=== PATIENT | female | born 1965 | race Caucasian/White ===

== ENCOUNTER 2022-02-10 00:05 | Inpatient (IN) | payer BC, SELFPAY ==
[2022-02-11] VITALS (20 sets, daily range): BP systolic 103–145; BP diastolic 55–93; PULSE 56–80; RESP 15–18; TEMP 36.2–37.1; O2SAT 96–100
--- NOTE | 2022-02-11 05:53 | PC.NURSE ---
[id number] Pt resting well during shift, pivot transfers to BSC with 1 assist, NWB to LLE. NPO since 23502/10/22. pain primarily to L hand, occasionally to lower back and L hip, prn pain medications administered as pt needs. surgery scheduled from [address] Hernandez.
[2022-02-11] MEDS: LEVOTHYROXINE 50 MCG TABLET PO (06:01)
[2022-02-11] MEDS: CITALOPRAM HYDROBROMIDE 20 MG TABLET 40 MG PO (08:34)
[2022-02-11] MEDS: POTASSIUM CHLORIDE 10 MEQ CAPSULE ER 20 MEQ PO (08:34)
[2022-02-11] MEDS: buPROPion XL 150 MG TABLET 300 MG PO (08:34)
[2022-02-11] MEDS: 0.9 % SODIUM CHLORIDE 1000 ml 1,000 ML 100 ML IV (09:52)
[2022-02-11] MEDS: CEFAZOLIN 2 GM INJ IVP (11:02)
[2022-02-11] MEDS: TRANEXAMIC ACID 100 MG/ML INJ 1000 MG IV (11:07)
--- NOTE | 2022-02-11 11:10 | XR_ITS ---
Final Report Patient: LB BRODY Facility:?[facility] Patient ID:?[id number] Site Patient ID:?[id number]. Site :?[id number] Study:?XRay Hip LT INTRA OP MARLON-02/11/2022 1:08:27 PM Ordering Physician:?Dina Anderson Final Report: INDICATION: Intraoperative total hip arthroplasty. TECHNIQUE: Intraoperative C-arm fluoroscopy. IMPRESSION: Intraoperative C-arm fluoroscopy was provided. Fluoroscopy time 33.3 seconds. 1 image was captured. Dictated by James Grey MD @ 02/11/2022 1:21:10 PM (Electronic Signature)
--- NOTE | 2022-02-11 11:21 | W.PM.NB ---
Nerve Block Nerve Block Time Seen by Provider: 10:30 Date Seen: 02/11/22 Type of block requested by surgeon for post-operative analgesia: KAREEM/LFCN Side: left Time out performed: Yes Verification of patient name: Yes Verification of date of : Yes Site marking: site marked Name of person performing procedure: hedy Procedure Ultrasound guided. Images saved: Yes Medications given in 5ml increments after negative aspiration: Ropivicaine %: 0.5 mL: 30 Needle gauge: 20 Decadron (mg): 10 Precedex (mg): 0.02 Patient tolerated procedure well: Yes
[2022-02-11] MEDS: LACTATED RINGERS 1000 ML 1,000 ML 200 ML IV (11:30)
--- NOTE | 2022-02-11 12:42 | XR_ITS ---
Final Report Patient: LB BRODY Facility:?[facility] Patient ID:?[id number] Site Patient ID:?[id number]. Site :?[id number] Study:?XRay Hip Left POST OP AP & LAT-02/11/2022 1:35:35 PM Ordering Physician:Jonn Anderson Final Report: Indication: Postop Technique: Two views. Comparison: None. Findings/Impression: Status post left total hip arthroplasty. No fracture or malalignment. Subcutaneous gas. Dictated by James Grey MD @ 02/11/2022 5:57:12 PM (Electronic Signature)
--- NOTE | 2022-02-11 12:42 | PM.ORPRC ---
Procedure Note Procedure: PREOPERATIVE DIAGNOSIS: 1. Left Femoral Head fracture, acute, closed, intra-articular 2. Left posterior acetabular labral avulsion fracture POSTOPERATIVE DIAGNOSIS: 1. Left Femoral Head fracture, acute, closed, intra-articular 2. Left posterior acetabular labral avulsion fracture PROCEDURE: 1. Left total hip arthroplasty-anterior approach for femoral fracture 2. 89612 - intraoperative fluoroscopy up to 1 hour. SURGEON: Justin Arroyo MD. LIBRARY AIDE: Eldon Lopez PA-C; Beny DELANEY - Of note, a skilled construction management assistant was critical for this case to aid in patient positioning, tissue retraction, limb manipulation/positioning, dislocation/relocation, patient safety, and closure. ANESTHESIA: Spinal anesthetic EBL: 300 mL IMPLANTS: DePuy J&J uncemented total hip [place] cup size 48, hole eliminator, +0 neutral liner Actis stem, standard offset, size 6 +1 mm ceramic 32mm head. COMPLICATIONS: None evident INDICATIONS: The patient is a pleasant 56-year-old female who has experienced severe left hip pain and difficulty bearing weight after a fall. She fell downhill and dislocated her left hip. This is a red devil hip. She had a reducing [place] emergency department. following the reduction, a CT scan was obtained of the left hip which revealed a left intra-articular femoral head fracture that was displaced as well as a posterior wall left acetabular avulsion fracture. Given the deformity, the dysfunction, and the pain, as well as the failure of nonoperative management, recommendation was made for surgery. FINDINGS: Intra-articular femoral head fracture with significant heme arthrosis. The posterior wall acetabular avulsion fracture was also noted. DESCRIPTION OF PROCEDURE: Following a thorough discussion of risks, benefits, and alternatives consent was obtained and the left hip was marked. The patient was brought to the operating room and placed supine on the operating table. Induction of anesthesia was undertaken. 2 g IV Ancef and 1 g tranexamic acid was administered within 1 hr of incision preoperatively. Proper time-out was performed identifying proper patient, site, procedure. The operative extremity was prepped and draped in the appropriate sterile fashion using ChloraPrep after the patient was positioned on the [place] table with head in neutral alignment and all bony prominences well padded. C-arm fluoroscopic imaging was utilized to confirm proper pelvis rotation and position, and to get true AP films of both the contralateral left, and the affected left hip. This is for comparison. A longitudinal incision was made starting approximately 1 cm distal to the ASIS, and 3-4 cm lateral. The incision was extended distally aiming toward the lateral border the patella. Sharp incision through skin and bovie cautery through the subcutaneous tissue allowed identification of the TFL fascia. This was sharply divided, and the fascia bluntly released from the muscle fibers as we dissected medial. Upon coming to the medial border, we were able to retract the TFL laterally, and penetrated the deeper fascia and identify the crossing circumflex vessels. These were ligated/cauterized. The rectus was elevated from the capsule, and retractors placed laterally and medially along the femoral neck to help with visualization of the capsule. We then performed an inverted T capsulotomy. The capsule was tagged for later repair. Retractors were placed inside the capsule. The femoral neck was visualized after releasing medially down to the lesser trochanter, along the saddle laterally, and up onto the acetabulum. The femoral neck cut was made in line with our preoperative templating. The head was removed in a single piece, and sized. We turned our attention to acetabular preparation. Initially, the labrum was resected from around the perimeter, the pulvinar was excised, allowing us to visualize the false wall. We started the reaming with a 43 mm reamer. This was medialized down to the true wall. We then enlarged our reamers sequentially up to one size less than the selected cup size. We trialed at the same size and found it to have an excellent fit. The selected cup was then opened, inserted, and impacted in line with the goal of 40-45? of abduction, and 20-25? of anteversion. This was confirmed on C-arm fluoroscopic imaging to be in the appropriate/goal position. Once the cup was placed we placed a hole eliminator and a liner consistent with preop planning. Attention was turned to the femoral preparation. The limb was extended, externally rotated, and adducted. The posteromedial capsule was released, as retractors were placed allowing excellent access to the proximal femur. Initially a box annealer was followed by canal finder followed by various broaches. We broached sequentially up to size noted above, found it to have excellent rotational control, and trialing various heads and necks, revealed that appropriate neck offset, and the above noted head size provided the greatest stability, and adventism of length, and offset. C-arm fluoroscopic imaging confirmed position of the stem, as well as leg lengths, which were compared with the pre procedure all fluoroscopic images. Trial implants were removed, the real femoral stem inserted, as was the ceramic head. After reducing, the leg was placed through range of motion and stability was confirmed anterior, posterior, and lateral. A 3 min Betadine soak was then performed, and thorough irrigation with normal saline followed. Closure of the capsule was performed with #1 PDS. Bleeding was confirmed to be controlled at this stage, and the TFL fascia was closed with #0 strata fix. Subcutaneous, and subcuticular closure was performed with 2-0 Vicryl and 4-0 Monocryl, respectively. Dressings were applied, and the patient was awoken from anesthesia and transferred the PACU in stable condition. A skilled construction management assistant was critical for this case to aid in patient positioning, tissue retraction, proximal femur exposure, limb manipulation/positioning, dislocation/relocation, patient safety, and closure. PLAN: 1. Weight bear as tolerated operative extremity. 2. 23 hr perioperative antibiotics. 3. Ice. 4. PT/OT consults for ambulation assistance/mobility education. 5. Social work consult for discharge planning. 6. DVT prophylaxis with at SCDs, Sher Samire, and Xarelto x5 days followed by aspirin for a total of 1 month..
--- NOTE | 2022-02-11 13:37 | W.ANESCHARGE ---
Anesthesia Charges Start Date/Time Anesthesia Start Date: 02/11/22 Anesthesia Start Time: 10:38 Stop Date/Time Anesthesia Stop Date: 02/11/22 Anesthesia Stop Time: 13:23 Summary Emergency: No
--- NOTE | 2022-02-11 14:06 | W.SUR.HO ---
Primary Language: Preferred Language: Orientation Status: [] Alert & Oriented [] Slight Confusion [] Known Dx Dementia NPO Since: MAY: IV Size: IV Site Location: Duramorph Given (If Yes, Indicate Time): Equipment: [] NG [] Perez [] ARIEL [] CBI [] Compression Device Family: [] In Waiting Room [] Call @ Active Medications Generic Name Dose Route Start Last Admin Trade Name Freq PRN Reason Stop Dose Admin Acetaminophen 1,000 mg 02/11/22 17:00 Acetaminophen 500 Mg Tablet PO Q6H RALPH Bisacodyl 10 mg 02/11/22 10:56 Bisacodyl 10 Mg Supp.Rect ND DAILY PRN Constipation Bupropion HCl 300 mg 02/11/22 09:00 02/11/22 08:34 Bupropion Xl 150 Mg Tablet PO 300 mg DAILY RALPH Administration Celecoxib 200 mg 02/11/22 21:00 Celecoxib 200 Mg Capsule PO BID RALPH Citalopram Hydrobromide 40 mg 02/11/22 09:00 02/11/22 08:34 Citalopram Hydrobromide 20 Mg Tablet PO 40 mg DAILY RALPH Administration Diphenhydramine HCl 25 - 50 mg 02/11/22 10:56 Diphenhydramine 50 Mg/Ml Inj IVP Q3H PRN Itching Hydromorphone HCl 0.2 - 0.5 mg 02/11/22 10:56 Hydromorphone 0.5 Mg/0.5 Ml Inj IVP Q1H PRN Pain Hydroxyzine Pamoate 25 mg 02/11/22 05:00 Hydroxyzine Pamoate 25 Mg Capsule PO Q4H PRN Sodium Chloride 1,000 mls @ 100 mls/hr 02/11/22 10:00 02/11/22 12:51 0.9 % Sodium Chloride 1000 Ml IV Infused .Q10H RALPH Infusion Lactated Ringer's 1,000 mls @ 75 mls/hr 02/11/22 11:00 Lactated Ringers 1000 Ml IV .[id number] RALPH Cefazolin Sodium 2 gm/ Sodium 100 mls @ 200 mls/hr 02/11/22 18:00 Chloride IVPB 02/12/22 10:29 Q8H RALPH Lactated Ringer's 1,000 mls @ 35 mls/hr 02/11/22 11:30 02/11/22 11:30 Lactated Ringers 1000 Ml IV 200 mls/hr .Q24H RALPH Administration Levothyroxine Sodium 50 mcg 02/11/22 06:00 02/11/22 06:01 Levothyroxine 50 Mcg Tablet PO 50 mcg 0600 RALPH Administration Lidocaine/Aluminum/Magnesium/Simeth 15 - 30 ml 02/11/22 10:56 Mag Hydrox/Aluminum Hyd/Simeth 30 Ml Oral.Susp PO Q2H PRN Indigestion Lorazepam 0.5 - 2 mg 02/11/22 10:56 Lorazepam 0.5 Mg Tablet PO HS PRN Sleep Morphine Sulfate 2 mg 02/11/22 05:00 Morphine 2 Mg/Ml Inj IVP Q4H PRN Ondansetron HCl 4 mg 02/11/22 05:00 Ondansetron 2 Mg/Ml Inj IVP Q4H PRN Ondansetron HCl 4 mg 02/11/22 10:56 Ondansetron 2 Mg/Ml Inj IVP Q4H PRN Nausea And Vomiting Oxycodone HCl 5 mg 02/11/22 05:00 Oxycodone 5 Mg Tablet PO Q4H PRN Oxycodone HCl 2.5 - 10 mg 02/11/22 10:56 Oxycodone 5 Mg Tablet PO Q2H PRN Pain Potassium Chloride 20 meq 02/11/22 08:00 02/11/22 08:34 Potassium Chloride 10 Meq Capsule Er PO 20 meq DAILYWM RALPH Administration Rivaroxaban 10 mg 02/12/22 09:00 Rivaroxaban 10 Mg Tablet PO DAILY RALPH Sennosides 2 tab 02/11/22 21:00 Sennosides 1 Tab Tablet PO BID RALPH Sodium Chloride 500 ml 02/11/22 10:56 0.9 % Sodium Chloride 500 Ml IV Q4H PRN OLIGURIA Sodium Chloride 10 ml 02/11/22 11:02 Sodium Chloride 0.9 % (Flush) 10 Ml Syringe IVF .FLUSH PRN Diet 02/11/22 06:06 NPO Diet [DIET] 02/12/22 00:01 NPO Diet [DIET] Consults 02/11/22 10:56 Consult to Occupational Therapy [CONS] Routine Consult to Physical Therapy [CONS] Routine Consult to Squaring Shear Operator [CONS] Routine Respiratory Breath Sounds [Bilateral Normal,Clear Posterior] Breath Sounds [Bilateral Normal,Clear Posterior] Pulse Oximetry 98 Pulse Oximetry 98 Pulse Oximetry 98 Pulse Oximetry 98 Pulse Oximetry 98 Pulse Oximetry 98 Pulse Oximetry 99 Oxygen Delivery Method Room Air Oxygen Delivery Method Room Air Oxygen Delivery Method Room Air Oxygen Delivery Method Room Air Oxygen Delivery Method Room Air Oxygen Delivery Method Room Air Oxygen Delivery Method Room Air Heart Sounds Heart Sounds S1 & S2 Renal Bladder Pattern Normal for Patient Urinary Incontinence Type Normal for Patient Operation Date: 02/11/22 11:30 Actual Procedures p Total Hip Anterior Approach(Left) - Justin Arroyo MD
--- NOTE | 2022-02-11 14:25 | W.ANESCHARGE ---
Anesthesia Charges Start Date/Time Anesthesia Start Date: 02/11/22 Anesthesia Start Time: 10:38 Stop Date/Time Anesthesia Stop Date: 02/11/22 Anesthesia Stop Time: 13:23 Summary Emergency: No
[2022-02-11] MEDS: HYDROmorphone 0.5 mg/0.5 ml inj IVP ×2 (14:28→16:28)
[2022-02-11] MEDS: OXYCODONE (CR) 10 MG TAB.ER.12H PO (14:53)
[2022-02-11] MEDS: ACETAMINOPHEN 500 MG TABLET 1000 MG PO ×2 (15:16→20:46)
--- NOTE | 2022-02-11 15:31 | PM.IMPN1 ---
Progress Note: A&P Assessment and plan (1) Fracture of head of left femur: Problem details: Also dislocation of the left hip and posterior wall acetabular fracture Status: Acute Assessment and Plan: Planning left total hip arthroplasty today. (2) Fall: Status: Acute Assessment and Plan: PT and OT evaluation after total hip arthroplasty. 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 She had a DVT in my right hand 25 years ago after an IV for a surgery. She has had several surgeries in life with no bleeding issues. Her mother has the same factor 2 abnormality and has never had bleeding issues, but has had multiple PEs and DVTs. She is very vague and unclear about the details. I have [facility], but those go back only to 2017 and a note from 2018 mentions these similar vague details. 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 PT/PTT were checked prior to surgery 02/10/2022 and were both within normal limits. Status: Chronic Assessment and Plan: I recommend treating with prophylactic doses of Xarelto for 6 weeks postoperatively. (5) Hypothyroidism: Status: Chronic Assessment and Plan: Continue levothyroxine Subjective Time Seen by Provider: 07:45 Date Seen: 02/11/22 Interval history: Kelly is looking forward to getting surgery today so that is not her hip will not hurt as much and that she can start to move around. She denies chest pain or shortness of breath. Exam Const: Vital Signs, click to edit/add: Vital Signs - 24 hr 02/11/22 03:00 02/11/22 07:00 02/11/22 13:25 Temperature 98.7 F 97.7 F 98.2 F Pulse Rate 73 Pulse Rate [Right Pulse Oximeter] 80 75 Respiratory Rate 18 16 15 Blood Pressure 124/90 H Blood Pressure [Le ft Arm] 123/59 L 130/75 Pulse Oximetry 99 98 02/11/22 13:30 02/11/22 13:35 02/11/22 13:50 Temperature Pulse Rate 73 75 75 Pulse Rate [Right Pulse Oximeter] Respiratory Rate 15 15 15 Blood Pressure 119/80 136/80 131/68 Blood Pressure [Le ft Arm] Pulse Oximetry 98 98 98 02/11/22 13:55 02/11/22 14:01 02/11/22 14:10 Temperature 98.2 F 97.2 F L Pulse Rate 68 62 56 L Pulse Rate [Right Pulse Oximeter] Respiratory Rate 16 16 16 Blood Pressure 131/68 118/78 Blood Pressure [Le ft Arm] 128/71 Pulse Oximetry 98 98 Documenting provider has reviewed patient's vital signs: yes Common normals: no apparent distress, oriented x3 and alert General appearance: cooperative and comfortable Orientation/consciousness: Yes awake HENMT: Common normals: moist oral mucous membranes Face and sinus: facial abrasion (Left cheek) Mouth: lip abnormal (ecchymosis unchanged) left upper Resp: Common normals: normal respiratory effort and clear to auscultation bilaterally Auscultation: clear to auscultation bilaterally Cardio: Common normals: regular rate, regular rhythm, no gallops, no murmurs and no rub Rate: regular rate Rhythm: regular rhythm GI: Common normals: Normal to inspection, nondistended, normoactive bowel sounds present, soft to palpation and non-tender Palpation: soft Extremity: Common normals: no pedal edema Left upper extremity: hand and digits (Ecchymosis evolving, larger area, less dense) Other: Both lower extremities are in immobilizer. Neuro: Common normals: oriented x3 Sensorium/orientation: awake and alert Skin: Common normals: no jaundice General skin exam: no pallor
[2022-02-11] MEDS: hydrOXYzine pamoate 25 MG CAPSULE PO ×2 (15:36→20:56)
[2022-02-11] MEDS: SODIUM CHLORIDE 0.9 % (FLUSH) 10 ML SYRINGE IVF (16:30)
[2022-02-11] MEDS: CEFAZOLIN 2 GM in 0.9 % SODIUM CHLORIDE Mini-bag 100 ML IVPB (17:54)
[2022-02-11] MEDS: LACTATED RINGERS 1000 ML 1,000 ML 75 ML IV (18:02)
[2022-02-11] MEDS: OXYCODONE 5 MG TABLET PO ×3 (18:23→23:10)
--- NOTE | 2022-02-11 18:58 | PC.NURSE ---
Pt. arrived on floor @1410. Pt. was confused and crying out in pain. Rated pain 10/10 unable to be re-directed, attempted to reposition patient on side, pt. was complaining of pain and continued to bend affected leg and removed ice pack, sat up at 90 degrees. continued to educate pt. and redirect. vitally stable, see emar for pain regimen. After a few hours of rest pt. up to commode at 1830 and voided 800CCs. Tolerated sitting on chair and eating.
[2022-02-11] MEDS: SENNOSIDES 1 TAB TABLET 2 TAB PO (20:45)
[2022-02-11] MEDS: CELECOXIB 200 MG CAPSULE PO (20:56)
--- NOTE | 2022-02-11 22:40 | PC.NURSE ---
Shift Note [id number]: Pt cooperative but impulsive and despite discussing fall risks pt did self transfer from chair to bed successfully. Bed and chair alarms in place and pt reminded of proper call light use. Pt seems groggy with delayed responses to questions and mild difficulty word finding. Oriented x3. Surgical dressing to left hip C,D,&I with active ice in place. Pt is moving well with assist x1-2 with walker and GB. Denies dizziness/lightheadedness with position change. Tolerating regular diet and voiding without difficulty. Rates pain 6-8/10, PRN Oxy and Vistaril given with scheduled analgesics. VS WNL and LS COA.
[2022-02-12] VITALS (10 sets, daily range): BP systolic 96–145; BP diastolic 46–83; PULSE 47–90; RESP 16–20; TEMP 35.9–36.7; O2SAT 96–100
[2022-02-12] MEDS: CEFAZOLIN 2 GM in 0.9 % SODIUM CHLORIDE Mini-bag 100 ML IVPB ×2 (02:14→10:20)
[2022-02-12] MEDS: OXYCODONE 5 MG TABLET PO ×3 (02:16→23:01)
[2022-02-12] MEDS: ACETAMINOPHEN 500 MG TABLET 1000 MG PO ×4 (04:43→22:59)
--- NOTE | 2022-02-12 05:25 | PC.NURSE ---
Addendum entered by Hoa Be RN 02/12/22 05:33: Pt repostioned and pain meds given. Once med started to work pt slept better. Up with one assist to BR. Voing without problems. Has one more abx due and then can be saline locked. Left hip dressing is CDI. Original Note: Started out at 2100 she was in terrible pain. She was restless and ripping bedding apart
[2022-02-12] MEDS: LACTATED RINGERS 1000 ML 1,000 ML 75 ML IV (07:54)
[2022-02-12] MEDS: buPROPion XL 150 MG TABLET 300 MG PO (10:20)
[2022-02-12] MEDS: SENNOSIDES 1 TAB TABLET 2 TAB PO ×2 (10:20→23:00)
[2022-02-12] MEDS: CELECOXIB 200 MG CAPSULE PO ×2 (10:20→23:00)
[2022-02-12] MEDS: POTASSIUM CHLORIDE 10 MEQ CAPSULE ER 20 MEQ PO (10:20)
[2022-02-12] MEDS: RIVAROXABAN 10 MG TABLET PO (10:20)
[2022-02-12] MEDS: CITALOPRAM HYDROBROMIDE 20 MG TABLET 40 MG PO (10:20)
--- NOTE | 2022-02-12 14:21 | PC.NURSE ---
Pt. up in chair and to BSC with walker, transfer belt and assist of one. Left hip dressing dry and intact. CMS intact. Pain controlled with Oxycodone and scheduled Celebrex and Tylenol.
--- NOTE | 2022-02-12 17:00 | PM.ORPN ---
Subjective Subjective Principal diagnosis: Status postop day 1 left total hip arthroplasty - anterior approach Interval history: reports doing okay. She feels somewhat groggy. Her pain is controlled okay. She mainly complains of back pain which is chronic, is not treated historically, and no assessment historically. She reports being nervous /scared about her pain. Pain managed with p.r.n. and scheduled medications including oxycodone, acetaminophen, ice, elevation. DVT prophylaxis includes rivaroxaban. Are read in a hospitalist note that she has a factor 5 Leiden deficiency disorder, thus she will likely continue rivaroxaban for 1 month postop. Denying chest pain, shortness of breath, lightheadedness/ dizziness, nausea / vomiting. Reports having 1 BM. Ortho Exam Const Vital Signs, click to edit/add: Vital Signs - 24 hr 02/11/22 19:00 02/11/22 20:00 02/11/22 20:46 Temperature 97.3 F L 98 F 97.3 F L Pulse Rate 73 Pulse Rate [Left Pulse Oximeter] Pulse Rate [Right Pulse Oximeter] 73 76 Respiratory Rate 16 16 Blood Pressure 121/71 Blood Pressure [Left Arm] 121/71 103/61 Pulse Oximetry 98 96 02/11/22 23:10 02/12/22 00:05 02/12/22 00:37 Temperature 97.3 F L 96.7 F L 97.5 F L Pulse Rate Pulse Rate [Left Pulse Oximeter] Pulse Rate [Right Pulse Oximeter] 47 L 83 Respiratory Rate 16 18 Blood Pressure Blood Pressure [Left Arm] 96/46 L 134/72 Pulse Oximetry 96 96 02/12/22 01:05 02/12/22 07:44 02/12/22 07:50 Temperature 97.5 F L 97.9 F Pulse Rate Pulse Rate [Left Pulse Oximeter] 74 Pulse Rate [Right Pulse Oximeter] 58 L 58 L Respiratory Rate 18 18 Blood Pressure Blood Pressure [Left Arm] 100/61 130/73 Pulse Oximetry 98 02/12/22 11:27 02/12/22 15:51 Temperature 97.9 F 97.7 F Pulse Rate Pulse Rate [Left Pulse Oximeter] 79 Pulse Rate [Right Pulse Oximeter] Respiratory Rate 18 Blood Pressure Blood Pressure [Left Arm] 121/79 Pulse Oximetry 100 Documenting provider has reviewed patient's vital signs: yes Common normals: no apparent distress and oriented x3 General appearance: cooperative, anxious, lethargic ( Likely due to oral narcotics) and appears older than stated age Nutritional appearance: overweight Orientation/consciousness: Yes awake, Yes oriented to person, Yes oriented to place, Yes oriented to time and Yes lethargic ( Likely due to oral narcotics) Cardio Other: 2+ DP/PT pulses bilaterally Extremity Other: left lower extremity mildly swollen; soft tissues are supple; no erythema or ecchymosis. Warmth appropriate. Surgical dressings clean, dry, and intact; pannus covers 1/2 of the wound. No erythematous streaking peripheral to the bandage. Bilateral calves soft, nontender without swelling, edema, tenderness, erythema, discoloration, warmth, or palpable cords Neuro Common normals: oriented x3 Sensorium/orientation: awake, oriented to person, oriented to place, oriented to time and lethargic ( Likely due to oral narcotics) Assessment and Plan Assessment and plan (1) Fracture of head of left femur: Problem details: status postop day 1, left total hip arthroplasty - anterior approach for left femoral head fracture Status: Acute Assessment and Plan: complete 23 hours perioperative antibiotics PT/OT consult for education and assistance social work consult for discharge planning prescribed analgesics as needed DVT prophylaxis includes rivaroxaban, bilateral knee-high Sher stockings and SCDs anticipation is for discharge tomorrow 02/13/2022 with as long as patient is medically stable, the pain is controlled, and they are safe with mobilization. patient was not able to fully participate in therapy today due to being unsteady and groggy. We will try to reduce her overall narcotic use for pain. 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 She had a DVT in my right hand 25 years ago after an IV for a surgery. She has had several surgeries in life with no bleeding issues. Her mother has the same factor 2 abnormality and has never had bleeding issues, but has had multiple PEs and DVTs. She is very vague and unclear about the details. I have checked [facility], but those go back only to 2017 and a note from 2018 mentions these similar vague details. 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 PT/PTT were checked prior to surgery 02/10/2022 and were both within normal limits. Status: Chronic (5) Hypothyroidism: Status: Chronic
--- NOTE | 2022-02-12 18:25 | P.IMPN_ITS ---
Progress Note: A&P Assessment and plan (1) Fracture of head of left femur: Problem details: 02/11/22 left total hip arthroplasty - anterior approach for left femoral head fracture Status: Acute Assessment and Plan: Patient continues to have pain control issues. In conference with the ortho team and PT team we have decided to keep her 1 more night and continue rehab as an inpatient. 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 She had a DVT in my right hand 25 years ago after an IV for a surgery. She has had several surgeries in life with no bleeding issues. Her mother has the same factor 2 abnormality and has never had bleeding issues, but has had multiple PEs and DVTs. She is very vague and unclear about the details. I have checked her records from [facility], but those go back only to 2017 and a note from 2018 mentions these similar vague details. 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 PT/PTT were checked prior to surgery 02/10/2022 and were both within normal limits. Status: Chronic Assessment and Plan: Stable Time Spent With Patient Total time spent: 25 Subjective Interval history: Daily Progress Note - Hospital Medicine Day #: 4 Postop day 1 left total hip arthroplasty - anterior approach CC: Fall with left hip fracture OVERNIGHT UPDATES FROM STAFF & MED, LAB, IMAGING UPDATES Patient continues to have significant pain issues. Her ambulation is poor. She has had intermittent chest pain with negative workup. Vitals reviewed. She is on room air. She is afebrile. No new labs today. Review of [employer] labs from prior to our goal live to expands reveals no significant concerns. She has an normal electrolyte panel preoperatively and normal renal function. Review of Systems: See subjective Cardiac: No new chest pain/pressure/palpitations. Respiratory: no new dyspnea. GI: No abdominal bloating Musculoskeletal, significant left hip pain Objective: She looks tired, wore out. Vitals: see above Lungs: Clear. Cardiac: S1S2. Left hip reveals ecchymoses, surgical dressing that is dry and intact. Neurovascularly intact left lower extremity Disposition/Potential discharge - Likely to return to previous living situation. Total time is 25 minutes with greater than 50% spent in counseling and coordination of care. Exam Const: Vital Signs, click to edit/add: Vital Signs - 24 hr 02/11/22 19:00 02/11/22 20:00 02/11/22 20:46 Temperature 97.3 F L 98 F 97.3 F L Pulse Rate 73 Pulse Rate [Left P ulse Oximeter] Pulse Rate [Right Pulse Oximeter] 73 76 Respiratory Rate 16 16 Blood Pressure 121/71 Blood Pressure [Le ft Arm] 121/71 103/61 Pulse Oximetry 98 96 02/11/22 23:10 02/12/22 00:05 02/12/22 00:37 Temperature 97.3 F L 96.7 F L 97.5 F L Pulse Rate Pulse Rate [Left P ulse Oximeter] Pulse Rate [Right Pulse Oximeter] 47 L 83 Respiratory Rate 16 18 Blood Pressure Blood Pressure [Le ft Arm] 96/46 L 134/72 Pulse Oximetry 96 96 02/12/22 01:05 02/12/22 07:44 02/12/22 07:50 Temperature 97.5 F L 97.9 F Pulse Rate Pulse Rate [Left P ulse Oximeter] 74 Pulse Rate [Right Pulse Oximeter] 58 L 58 L Respiratory Rate 18 18 Blood Pressure Blood Pressure [Le ft Arm] 100/61 130/73 Pulse Oximetry 98 02/12/22 11:27 02/12/22 15:51 02/12/22 17:22 Temperature 97.9 F 97.7 F 97.7 F Pulse Rate Pulse Rate [Left P ulse Oximeter] 79 86 Pulse Rate [Right Pulse Oximeter] Respiratory Rate 18 18 Blood Pressure Blood Pressure [Le ft Arm] 121/79 141/78 H Pulse Oximetry 100 100
[2022-02-12 18:40] LABS: Basophils Absolute Auto 0.02 K/uL (0.00-0.30); Basophils Percent Auto 0.2 % (0.0-3.0); Eosinophils Absolute Auto 0.01 K/uL (0.00-0.50); Eosinophils Percent Auto 0.1 % (0.0-7.0); Hematocrit 33.9 % (33.0-51.0); Hemoglobin* 11.9 gm/dL (12.0-16.0); Immature Granulocytes Abs Auto 0.02 K/uL (0.00-0.30); Lymphocytes Percent Auto 8.2 % (20-44); Mean Corpuscular HGB Conc 35 gm/dL (32-36); Mean Corpuscular Hemoglobin 32 pg (26-34); Mean Corpuscular Volume 91 fL (80-100); Monocytes Percent Auto 7.9 % (0.0-11.0); Neutrophils Percent Auto 83.4 % (42.0-72.0); Platelet Count* 159 K/uL (140-440); RDW Coefficient of Variation % 12.7 % (11.5-15.5); Red Blood Count 3.72 m/uL (4.00-5.20); White Blood Count* 9.76 K/uL (4.50-11.00)
[2022-02-12 18:46] LABS: Slide Review Reflex No
--- NOTE | 2022-02-12 19:02 | PC.NURSE ---
Shift Note [id number]: VS WNL and LS COA. States pain is tolerable and rates 4/10, scheduled Tylenol given and ice pack applied to left hip. Surgical dressing C,D,&I. Moves well with assist x1 with walker and GB. Poor appetite for dinner
[2022-02-12 19:03] LABS: Chloride* 110 mmol/L (96-114); Potassium* 3.7 mmol/L (3.6-5.1); Sodium* 138 mmol/L (135-149)
[2022-02-12 19:06] LABS: Blood Urea Nitrogen* 12 mg/dL (7-30); Carbon Dioxide* 21 mmol/L (20-32); Creatinine* 0.7 mg/dL (0.5-1.5); Est. Creatinine Clearance* 86.23; Estimated Glomerular Filt Rate 100.81; Glucose* 125 mg/dL (60-115)
[2022-02-12 19:07] LABS: Calcium* 8.9 mg/dL (8.4-10.6)
[2022-02-12] MEDS: ONDANSETRON 2 MG/ML inj 4 MG IVP (21:03)
[2022-02-12 21:20] LABS: HCO3 VBG 23 mmol/L (21-28); PCO2 VBG 28 mmHG (40-50); PO2 VBG 48.8 mmHG (25-47)
[2022-02-12 21:28] LABS: Basophils Absolute Auto 0.02 K/uL (0.00-0.30); Basophils Percent Auto 0.2 % (0.0-3.0); Eosinophils Absolute Auto 0.01 K/uL (0.00-0.50); Eosinophils Percent Auto 0.1 % (0.0-7.0); Hematocrit 33.6 % (33.0-51.0); Hemoglobin* 11.6 gm/dL (12.0-16.0); Immature Granulocytes Abs Auto 0.02 K/uL (0.00-0.30); Lymphocytes Percent Auto 8.8 % (20-44); Mean Corpuscular HGB Conc 35 gm/dL (32-36); Mean Corpuscular Hemoglobin 32 pg (26-34); Mean Corpuscular Volume 92 fL (80-100); Monocytes Percent Auto 7.6 % (0.0-11.0); Neutrophils Percent Auto 83.1 % (42.0-72.0); Platelet Count* 163 K/uL (140-440); RDW Coefficient of Variation % 12.7 % (11.5-15.5); Red Blood Count 3.67 m/uL (4.00-5.20); White Blood Count* 10.04 K/uL (4.50-11.00)
[2022-02-12 21:55] LABS: Slide Review Reflex No
[2022-02-12 22:08] LABS: Troponin I* < 0.01 ng/mL (0.01-0.04)
[2022-02-12 22:09] LABS: Procalcitonin* 0.06 ng/mL (<0.50)
--- NOTE | 2022-02-13 00:12 | CT_ITS ---
Final Report Patient: LB BRODY Facility:?[facility] Patient ID:?[id number] Site Patient ID:?[id number] Site :?[id number] Study:?CT Chest w/ Contrast-02/13/2022 1:25:37 AM Ordering Physician:Morgan Dickey Final Report: INDICATION: Post operative tachypnea, chest injury from fall TECHNIQUE: CT chest with i.v. contrast using pulmonary angiographic technique. Coronal and sagittal reformats were obtained. CONTRAST: 95 mL Isovue 370 COMPARISON: None FINDINGS: Cardiovascular: The pulmonary arteries are unremarkable in enhancement with no evidence of acute pulmonary embolism. The heart has an unremarkable appearance and size. No sign of aneurysm in the thoracic aorta. Mediastinum: No mass or adenopathy seen. Lung: No pulmonary contusion, laceration or pneumothorax is seen. Pleura and pericardium: No sign of pleural effusion seen. No significant pericardial effusion is present. Chest wall and axilla: No mass or adenopathy seen. Bone: Unremarkable for age. Upper abdomen: There are 2 hypodense lesions present in the dome of the liver measuring up to 8 mm which may represent tiny liver cyst. Cortical scarring is seen in the visualized right renal upper pole. IMPRESSION: 1. No CT evidence of acute pulmonary emboli seen. Dictated by Josh Gallardo MD @ 02/13/2022 1:37:41 AM Please note that all CT scans at this facility use dose modulation, iterative reconstruction, and/or weight-based dosing when appropriate to reduce radiation dose to as low as reasonably achievable. Dictated by: Josh Gallardo MD @ 02/13/2022 01:38:44 (Electronic Signature)
--- NOTE | 2022-02-13 00:14 | CT_ITS ---
Final Report Patient: LB BRODY Facility:?[facility] Patient ID:?[id number] Site Patient ID:?[id number]. Site :?[id number] Study:?CT Head w/o Contrast-02/13/2022 1:26:33 AM Ordering Physician:Morgan Dickey Final Report: INDICATION: Acute confusion after head trauma, fall TECHNIQUE: CT Head without i.v. contrast. Coronal and sagittal reformats were obtained. COMPARISON: 02/09/2022 FINDINGS: CSF space: The ventricles are normal for age. Brain: No evidence of mass, acute infarction or hemorrhage is seen. No mass- effect or midline shift is seen. The brain parenchyma is otherwise normal in appearance with preservation of the dunn-white matter junction. Calvarium: The visualized paranasal sinuses are well aerated. The mastoid air cells are clear. The visualized orbits are grossly unremarkable. The calvarium is unremarkable in appearance with no fractures identified. IMPRESSION: 1. No evidence of acute infarction, intracranial hemorrhage, or mass-effect seen. Please note that all CT scans at this facility use dose modulation, iterative reconstruction, and/or weight-based dosing when appropriate to reduce radiation dose to as low as reasonably achievable. Dictated by: Josh Gallardo MD @ 02/13/2022 01:34:38 (Electronic Signature)
[2022-02-13] MEDS: LORazepam 0.5 MG TABLET PO (02:41)
[2022-02-13 03:07] VITALS: BP 158/80; PULSE 80; RESP 22; TEMP 37; O2SAT 98
[2022-02-13 03:09] LABS: Appearance Urine Clear (Clear); Bilirubin Urine Negative (Negative); Blood Urine Negative (Negative); Color Urine Yellow (Yellow); Glucose Urine Negative (Negative); Ketones Urine 3+ (Negative); Leukocyte Esterase Urine Negative (Negative); Nitrite Urine Negative (Negative); Protein Urine Negative (Negative); Specific Gravity Urine 1.015 (1.000-1.030); Urobilinogen Urine 0.2 (0.2-1.0)
[2022-02-13] MEDS: LEVOTHYROXINE 50 MCG TABLET PO (06:34)
[2022-02-13 07:26] LABS: HCO3 VBG 27 mmol/L (21-28); PCO2 VBG 41 mmHG (40-50); PO2 VBG 26.7 mmHG (25-47); pH VBG 7.433 (7.32-7.43)
--- NOTE | 2022-02-13 07:35 | PC.NURSE ---
SHIFT NOTE 19-: Pt is delayed in responses, off and on confused. Pt also has episodes of sweating profusely, although afebrile. Oxygen saturations >90% on room air. PRN Oxycodone given x1 for hip pain, pt reported relief. Surgical incision is CDI, CMS intact. Active ice on. Pt up 1 assist with gait belt and walker, tolerating well. Pt sent down for a head CT and PE study, both were negative. Pt given PRN Ativan to help pt sleep, effective.
[2022-02-13 07:37] LABS: Hematocrit 31.7 % (33.0-51.0); Hemoglobin* 10.9 gm/dL (12.0-16.0); Mean Corpuscular HGB Conc 34 gm/dL (32-36); Mean Corpuscular Hemoglobin 32 pg (26-34); Mean Corpuscular Volume 92 fL (80-100); Platelet Count* 162 K/uL (140-440); Red Blood Count 3.43 m/uL (4.00-5.20); White Blood Count* 8.34 K/uL (4.50-11.00)
[2022-02-13 07:39] LABS: Slide Review Reflex No
[2022-02-13 08:03] LABS: Chloride* 110 mmol/L (96-114)
[2022-02-13 08:04] LABS: Potassium* 3.8 mmol/L (3.6-5.1); Sodium* 140 mmol/L (135-149)
[2022-02-13 08:06] LABS: Carbon Dioxide* 26 mmol/L (20-32); Creatinine* 0.6 mg/dL (0.5-1.5); Estimated Glomerular Filt Rate 104.63
[2022-02-13 08:07] LABS: Blood Urea Nitrogen* 12 mg/dL (7-30); Calcium* 8.6 mg/dL (8.4-10.6); Glucose* 91 mg/dL (60-115); Magnesium* 1.8 mg/dL (1.5-2.6)
[2022-02-13 08:26] LABS: Troponin I* < 0.01 ng/mL (0.01-0.04)
[2022-02-13 08:59] VITALS: BP 125/72; PULSE 99; RESP 16; TEMP 36.6; O2SAT 99
[2022-02-13] MEDS: buPROPion XL 150 MG TABLET 300 MG PO (09:49)
[2022-02-13] MEDS: OXYCODONE 5 MG TABLET PO (09:50)
[2022-02-13] MEDS: CITALOPRAM HYDROBROMIDE 20 MG TABLET 40 MG PO (09:50)
[2022-02-13] MEDS: SENNOSIDES 1 TAB TABLET 2 TAB PO (09:53)
[2022-02-13] MEDS: RIVAROXABAN 10 MG TABLET PO (09:53)
[2022-02-13] MEDS: CELECOXIB 200 MG CAPSULE PO (09:54)
[2022-02-13] MEDS: ACETAMINOPHEN 500 MG TABLET 1000 MG PO (10:04)
[2022-02-13 12:00] VITALS: BP 137/78; PULSE 75; RESP 16; TEMP 36.4; O2SAT 100
--- NOTE | 2022-02-13 13:17 | P.DS_ITS ---
DS: Providers Provider Date of admission: 02/10/22 07:58 Primary care physician: Jack Zavala MD Admitting Clinician: Bethany Mayen MD Consults: 02/11/22 10:56 Consult to Occupational Therapy [CONS] Routine Comment: Reason(s) for OT Consult:: Evaluate and Treat Any Restrictions?:: No Restrictions Consult to Physical Therapy [CONS] Routine Comment: Ambulate in the billy today Reason(s) for PT Consult:: Evaluate and Treat Any Restrictions?:: No Restrictions Comment: Nursing Activity Consult to Sanding Machine Tender Automatic [CONS] Routine Comment: Reason for Consult:: Discharge Planning Needs Attending Physician on discharge: Alison Nuno MD DS: Diagnosis Discharge Diagnosis (1) Fracture of head of left femur: Status: Acute Problem details: 02/11/22 left total hip arthroplasty - anterior approach for left femoral head fracture DS: Summary Hospital Course Hospital Course: Patient has history of left femoral head fracture; MARLON-AA indicated for stability and mobilization. AFter approropirate preoperative evaluation, patient admitted on 02/10/22. Underwent left MARLON-AA. Postoperatively, Patient was given anticoagulation for DVT prophylaxis. hospitalist cleared her medically. She progressed with physical therapy and was felt ready for discharge. Status at Discharge Functional status at discharge: uses cane/walker Overall status at discharge: patient is progressing back to baseline Time Spent with Patient Time attestation: Total time spent providing and/or coordinating discharge services: Time spent: Greater than 30 minutes Exam Const: Vital Signs, click to edit/add: Vital Signs - 24 hr 02/12/22 15:51 02/12/22 17:22 02/12/22 19:30 Temperature 97.7 F 97.7 F 97.2 F L Pulse Rate [Left P ulse Oximeter] 86 Pulse Rate [Right Pulse Oximeter] 80 Respiratory Rate 18 20 Blood Pressure [Le ft Arm] 141/78 H 145/83 H Pulse Oximetry 100 100 02/12/22 23:00 02/13/22 03:07 02/13/22 08:59 Temperature 98.0 F 98.6 F 97.8 F Pulse Rate [Left P ulse Oximeter] Pulse Rate [Right Pulse Oximeter] 90 80 99 Respiratory Rate 18 22 16 Blood Pressure [Le ft Arm] 141/78 H 158/80 H 125/72 Pulse Oximetry 99 98 99 02/13/22 12:00 Temperature 97.6 F Pulse Rate [Left P ulse Oximeter] Pulse Rate [Right Pulse Oximeter] 75 Respiratory Rate 16 Blood Pressure [Le ft Arm] 137/78 Pulse Oximetry 100 DS: Data Data Completed and Pending Labs on day of discharge: Labs from last 24 hours 02/13/22 02/13/22 02/13/22 06:41 06:41 06:41 WBC 8.34 RBC 3.43 L Hgb 10.9 L Hct 31.7 L MCV 92 MCH 32 MCHC 34 RDW Coeff of [place]az[place] Plt Count 162 Neut % (Auto) Lymph % (Auto) [place] % (Auto) Eos % (Auto) Baso % (Auto) Neut # (Auto) Lymph # (Auto) [place] # (Auto) Eos # (Auto) Baso # (Auto) Abs Immat Gran (auto) VBG pH 7.433 H VBG pCO2 41 VBG pO2 26.7 VBG HCO3 27 Sodium 140 Potassium 3.8 Chloride 110 Carbon Dioxide 26 BUN 12 Creatinine 0.6 Estimated Creat Clear 100.60 Glucose 91 Lactate 1.0 Calcium 8.6 Magnesium 1.8 Troponin I < 0.01 L Procalcitonin TSH Urine Color Urine Appearance Urine pH Ur Specific [place] Urine Protein Urine Glucose (UA) Urine Ketones Urine Blood Urine Nitrite Urine Bilirubin Urine Urobilinogen Ur Leukocyte Esterase 02/13/22 02/12/22 02/12/22 03:00 21:05 21:05 WBC RBC Hgb Hct MCV MCH MCHC RDW Coeff of [place] Plt Count Neut % (Auto) Lymph % (Auto) [place] % (Auto) Eos % (Auto) Baso % (Auto) Neut # (Auto) Lymph # (Auto) [place] # (Auto) Eos # (Auto) Baso # (Auto) Abs Immat Gran (auto) VBG pH 7.520 H VBG pCO2 28 L VBG pO2 48.8 H VBG HCO3 23 Sodium Potassium Chloride Carbon Dioxide BUN Creatinine Estimated Creat Clear Glucose Lactate Calcium Magnesium Troponin I < 0.01 L Procalcitonin 0.06 TSH Urine Color Yellow Urine Appearance Clear Urine pH 7.0 Ur Specific [place] 1.015 Urine Protein Negative Urine Glucose (UA) Negative Urine Ketones 3+ A Urine Blood Negative Urine Nitrite Negative Urine Bilirubin Negative Urine Urobilinogen 0.2 Ur Leukocyte Esterase Negative 06/02/12/22 02/12/22 21:05 18:33 18:24 WBC 10.04 RBC 3.67 L Hgb 11.6 L Hct 33.6 MCV 92 MCH 32 MCHC 35 RDW Coeff of [place] 12.7 Plt Count 163 Neut % (Auto) 83.1 H Lymph % (Auto) 8.8 L [place] % (Auto) 7.6 Eos % (Auto) 0.1 Baso % (Auto) 0.2 Neut # (Auto) 8.30 H Lymph # (Auto) 0.90 [place] # (Auto) 0.80 Eos # (Auto) 0.01 Baso # (Auto) 0.02 Abs Immat Gran (auto) 0.02 VBG pH VBG pCO2 VBG pO2 VBG HCO3 Sodium 138 Potassium 3.7 Chloride 110 Carbon Dioxide 21 BUN 12 Creatinine 0.7 Estimated Creat Clear 86.23 Glucose 125 H Lactate Calcium 8.9 Magnesium Troponin I Procalcitonin TSH 5.150 H Urine Color Urine Appearance Urine pH Ur Specific [place] Urine Protein Urine Glucose (UA) Urine Ketones Urine Blood Urine Nitrite Urine Bilirubin Urine Urobilinogen Ur Leukocyte Esterase 02/12/22 18:24 WBC 9.76 RBC 3.72 L Hgb 11.9 L Hct 33.9 MCV 91 MCH 32 MCHC 35 RDW Coeff of [place] 12.7 Plt Count 159 Neut % (Auto) 83.4 H Lymph % (Auto) 8.2 L [place] % (Auto) 7.9 Eos % (Auto) 0.1 Baso % (Auto) 0.2 Neut # (Auto) 8.10 H Lymph # (Auto) 0.80 L [place] # (Auto) 0.80 Eos # (Auto) 0.01 Baso # (Auto) 0.02 Abs Immat Gran (auto) 0.02 VBG pH VBG pCO2 VBG pO2 VBG HCO3 Sodium Potassium Chloride Carbon Dioxide BUN Creatinine Estimated Creat Clear Glucose Lactate Calcium Magnesium Troponin I Procalcitonin TSH Urine Color Urine Appearance Urine pH Ur Specific [place] Urine Protein Urine Glucose (UA) Urine Ketones Urine Blood Urine Nitrite Urine Bilirubin Urine Urobilinogen Ur Leukocyte Esterase Discharge Plan Discharge Disposition: Home, Self-Care Date of Admission: 02/10/22 07:58 Attending Provider on Discharge: Justin Arroyo Consulting Providers: Eldon Lopez Primary Care Provider: Jack Zavala Condition: Stable Anticipated Discharge Date/Time: 02/13/22 13:03 Discharge Medications: New celecoxib 200 mg Capsule 200 mg PO BID Qty: 60 0RF oxycodone 5 mg Tablet 2.5 - 10 mg PO Q2H PRN (Reason: Pain) Qty: 30 0RF Xarelto 10 mg Tablet 10 mg PO DAILY Qty: 3 0RF aspirin 81 mg capsule 81 mg PO BID Qty: 60 2RF Rx Instructions: start on 02/17/22 for one month sennosides-docusate sodium [Senna-S] 8.6-50 mg tablet 1 - 4 tab-cap PO BID Qty: 60 0RF Rx Instructions: Hold medication if experiencing loose stools. Continued dextroamphetamine-amphetamine [Adderall XR] 15 mg capsule,extended release 24hr 15 mg PO DAILY 0RF ascorbic acid (vitamin C) 500 mg tablet 500 mg PO DAILY 0RF bisacodyl 5 mg tablet,delayed release (DR/EC) 10 mg PO HS PRN0RF bupropion HCl 300 mg tablet extended release 24 hr 300 mg PO DAILY 0RF cholecalciferol (vitamin D3) 25 mcg (1,000 unit) capsule 25 mcg PO DAILY 0RF citalopram 40 mg tablet 40 mg PO DAILY 0RF coenzyme Q10 50 mg capsule 50 mg PO DAILY 0RF furosemide 40 mg tablet 40 mg PO DAILY 0RF minocycline 100 mg capsule 100 mg PO Q12H 0RF levothyroxine 50 mcg tablet 50 mcg PO DAILY 0RF lorazepam 1 mg tablet 1 mg PO TID PRN0RF pregabalin 300 mg capsule 300 mg PO BID 0RF Classic 28 mg iron- 800 mcg tablet PO DAILY 0RF trazodone 100 mg tablet 100 mg PO HS 0RF Discontinued celecoxib 100 mg capsule 100 mg PO BID PRN0RF meloxicam 15 mg tablet 15 mg PO DAILY 0RF Discharge Orders: Discharge Order (Routine); Ordered 02/13/22 Ordered By: Madhuri Cosme Patient Education: Narcotic Safety (GEN), Surgical Site Infections (DC), Care For Your Absorbable Stitches (DC), Anterior Hip Replacement (DC), Deep Vein Thrombosis Prevention (DC) Activity Level: Activity as Tolerated, Up with assist, Use Cane and Use Walker Activity Detail: Sher socks: Wear for 1 month, remove for 1 hour 3 times a day ? No tub, hot tub, or pool until scabs no longer present ? May shower p.r.n. ? Ice the affected area as needed using cryocuff or active ice; no restrictions ? Driving: Do not drive while taking pain medications; anticipate 4-6 weeks of no driving if operative leg is the driving leg ? Dressing: do not remove the regional dressing; we will remove this at her first postop visit; only remove the original dressing if it appears saturated ? Sutures: sutures are under the skin they will dissolve over time. Surgical glue covers the wound. Do not scrub the wound, do not apply ointments/lotions. Let glue fall off naturally. ? Dental: no like to dental work for 6 months postop; if there is an urgent dental needed, contact our office for antibiotic prescription. ? Bacterial infection such as: Pneumonia, bacterial skin infections ( cellulitis), UTI, high fever, chills unrelated to the operative body part - call PCP urgently for treatment in hopes to protect your health and the metal implant(s) Discharge Diet: Regular Referrals: [facility] [Provider Group] - 02/18/22 (doesn't need to be NF specifically. s/p MARLON, left. anterior approach after traumatic fall.) Jack Zavala MD [Primary Care Provider] - Forms: Sidecar Info Instructions
--- NOTE | 2022-02-13 13:58 | PC.NURSE ---
Pt eval by Dr. Cosme [facility], showered with OT Cyn and walked, exercises and stairs with Rey PT. Please see eMar for medications provided throughout the day. Pt declined breakfast and lunch. Adequate water intake and urine output. My is going to take me out for dinner on the way home. Hx of past TBI. IV discontinued. Pt awaiting d/c paperwork and plans to go home with her spouse via w/c.
== END 2022-02-13 14:58 | disposition home or self-care (01) | DRG 912 ==
PROVIDERS: Family Medicine; Orthopaedic Surgery Sports Medicine; Physician Assistant Surgical; Admitting Provider Family Medicine; Emergency Provider Family Medicine; PCP Family Medicine; Visit Provider Family Medicine
PROC: 0SRB04A Replacement of Left Hip Joint with Ceramic on Polyethylene Synthetic Substitute, Uncemented, Open Approach (ICD-10-PCS; CPT 27130; principal; 2022-02-11 11:30)
DX: S32.492A Other specified fracture of left acetabulum, initial encounter for closed fracture (principal); S72.052A Unspecified fracture of head of left femur, initial encounter for closed fracture; S73.015A Posterior dislocation of left hip, initial encounter; D68.51 Activated protein C resistance; N18.2 Chronic kidney disease, stage 2 (mild); E03.9 Hypothyroidism, unspecified; Z86.718 Personal history of other venous thrombosis and embolism; Z86.711 Personal history of pulmonary embolism; W19.XXXA Unspecified fall, initial encounter
CPT/HCPCS: 1214; 36415; 70450; 71260; 72125; 72170; 72192; 73130; 73501; 73502; 76000; 80048; 81003; 82803; 83605; 83735; 84145; 84443; 84484; 85025; 85027; 85610; 85730; 87040; 87426; 93005; 94761; 96361; 96374; 96375; 96376; 97110; 97116; 97161; 97165; 97530; 97535; 99140; 99285; 99291; A9270; C1776; G0378; J0690; J1100; J1170; J2250; J2270; J2405; J2704; J2795; J3010; J3490; J7030; J7120; Q9967

== ENCOUNTER 2022-02-14 23:28 | Outpatient (CLI) | payer BC, SELFPAY | END 2022-02-14 23:29 | disposition home or self-care (01) | PROVIDERS: PCP Family Medicine; Visit Provider Internal Medicine | DX: S79.912A Unspecified injury of left hip, initial encounter (principal); W18.30XA Fall on same level, unspecified, initial encounter; Y92.009 Unspecified place in unspecified non-institutional (private) residence as the place of occurrence of the external cause | CPT/HCPCS: A0425; A0427 ==

== ENCOUNTER 2022-02-15 00:23 | Observation (INO) | payer BC, SELFPAY ==
[2022-02-15] VITALS (13 sets, daily range): BP systolic 102–137; BP diastolic 57–90; PULSE 72–100; RESP 16–18; TEMP 36.2–36.9; O2SAT 97–100; BMI 30.4; BMI 31.1
--- NOTE | 2022-02-15 | CRLHL7_ITS ---
For Patients: As a result of the Cures Act, medical imaging exams and procedure reports are released immediately into your electronic medical record. You may view this report before your referring provider. If you have questions, please contact your health care provider. HISTORY: Post reduction. TECHNIQUE: AP pelvis and lateral view left hip. COMPARISON: 02/15/2022. FINDINGS: Prior left total hip arthroplasty dislocation has been reduced. There is normal alignment on these radiographs. No acute fracture. Right hip joint space maintained. Degenerative changes within the lower lumbar spine. IMPRESSION: 1. Reduction of previously seen left total hip arthroplasty dislocation. 2. No acute fracture. Dictated by Bradly Bowie MD @ 02/15/2022 11:25:06 AM Dictated by: Bradly Bowie MD @ 02/15/2022 11:25:17 (Electronically Signed)
--- NOTE | 2022-02-15 00:55 | CRLHL7_ITS ---
For Patients: As a result of the Cures Act, medical imaging exams and procedure reports are released immediately into your electronic medical record. You may view this report before your referring provider. If you have questions, please contact your health care provider. INDICATION: Injury, recent total hip arthroplasty, Fall with recent hip replacement TECHNIQUE: Pelvis radiograph, Hip radiograph 3 views left COMPARISON: 02/11/2022 FINDINGS: Bone: No acute fractures or aggressive bone lesions are identified. Interval superior dislocation of the left femoral prosthesis is noted. Joint: A left bipolar arthroplasty is noted. The visualized sacroiliac joints are unremarkable in appearance. The pubic symphysis is normal in appearance. Soft tissue: Unremarkable. No radiopaque foreign bodies are seen. IMPRESSION: 1. Interval superior dislocation of the left femoral prosthesis is noted. Dictated by Josh Gallardo MD @ 02/15/2022 2:13:53 AM Dictated by: Josh Gallardo MD @ 02/15/2022 02:14:10 (Electronically Signed)
--- NOTE | 2022-02-15 01:21 | ED.NURSE ---
heads up given to house sup
--- NOTE | 2022-02-15 02:13 | ED.NURSE ---
Danielle GARCIA returned call for
--- NOTE | 2022-02-15 02:16 | ED_ITS ---
HPI - Fall General Chief Complaint: Hip Injury/Pain Stated Complaint: Left hip dislocation Time Seen by Provider: 02/15/22 00:25 History of Present Illness HPI Narrative: Patient is a 56-year-old woman with history of proximal femur fracture and acetabular fracture who underwent total hip arthroplasty after a fall home within the last week. She did reasonably well and went home but tonight fell again and now the hip is dislocated. She does not appear to be injured in any other way. She is unable to bear weight. She has otherwise been recovering well with no complications. Patient presents via EMS. Related Data Home Medications Medication Instructions Recorded Confirmed ascorbic acid (vitamin C) 500 mg 500 mg PO DAILY 02/11/22 02/11/22 tablet bisacodyl 5 mg tablet,delayed 10 mg PO HS PRN 02/11/22 02/11/22 release bupropion HCl 300 mg 24 hr tablet, 300 mg PO DAILY 02/11/22 02/11/22 extended release cholecalciferol (vitamin D3) 25 25 mcg PO DAILY 02/11/22 02/11/22 mcg (1,000 unit) capsule citalopram 40 mg tablet 40 mg PO DAILY 02/11/22 02/11/22 coenzyme Q10 50 mg capsule 50 mg PO DAILY 02/11/22 02/11/22 dextroamphetamine-amphetamine ER 15 mg PO DAILY 02/11/22 02/11/22 15 mg 24hr capsule,extend release (Adderall XR) furosemide 40 mg tablet 40 mg PO DAILY 02/11/22 02/11/22 levothyroxine 50 mcg tablet 50 mcg PO DAILY 02/11/22 02/11/22 lorazepam 1 mg tablet 1 mg PO TID PRN 02/11/22 02/11/22 minocycline 100 mg capsule 100 mg PO Q12H 02/11/22 02/11/22 pregabalin 300 mg capsule 300 mg PO BID 02/11/22 02/11/22 vits no.126-ferrous fum tab PO DAILY 02/11/22 28 mg iron-folic acid 800 mcg tablet (Classic ) trazodone 100 mg tablet 100 mg PO HS 02/11/22 02/11/22 Previous Rx's Medication Instructions Recorded aspirin 81 mg capsule 81 mg PO BID #60 cap 02/13/22 celecoxib 200 mg capsule 200 mg PO BID #60 cap 02/13/22 oxycodone 5 mg tablet 2.5 - 10 mg PO Q2H PRN #30 tab 02/13/22 rivaroxaban 10 mg tablet (Xarelto) 10 mg PO DAILY #3 tab 02/13/22 sennosides 8.6 mg-docusate sodium 1 - 4 tab-cap PO BID #60 tab 02/13/22 50 mg tablet (Senna-S) Allergies Allergy/AdvReac Type Severity Reaction Status Date / Time adhesive Allergy Severe Hives Verified 02/13/22 01:23 bee venom protein (honey bee) Allergy Severe Anaphylaxis Verified 02/13/22 01:23 Review of Systems Status of ROS: Reports: 10 or more systems reviewed and unremarkable except as noted in History and below [facility] Medical History (Updated 02/15/22 @ 02:20 by Zaid Gonzalez MD) ADHD, predominantly inattentive type Anginal equivalent CKD (chronic kidney disease), stage II Colon polyps Factor V Leiden Family history of clotting disorder Fibromyalgia Generalized anxiety disorder Hypothyroidism Neurofibromatosis Postoperative deep vein thrombosis (DVT) Recurrent major depression Syncope Traumatic brain injury Surgical History (Updated 02/11/22 @ 15:31 by Alison Nuno MD) History of arthroplasty of left knee History of total abdominal hysterectomy and bilateral salpingo-oophorectomy Hx laparoscopic cholecystectomy Hx of appendectomy Hx of LASIK S/P tendon repair S/P tendon repair Exam Narrative: Exam Narrative: EXAM GENERAL: Patient appears comfortable and well. Somewhat sedated from EMS. EYES: No scleral icterus. LYMPH: No supraclavicular or cervical lymphadenopathy. SKIN: Visible skin seen during exam normal or with benign process only. EXT: Left hip is shortened and externally rotated. Pulses are intact. No neural muscular defects. HEART: Regular rate and rhythm with no murmurs, rubs, or gallops. LUNGS: Clear to auscultation bilaterally with no crackles or wheezes. ABD: Soft, non tender, non distended. PSYCH: Good eye contact, speech is not pressured. Const: Vital Signs, click to edit/add: Vital Signs - 24 hr 02/15/22 00:27 Temperature 97.2 F L Pulse Rate [Left P ulse Oximeter] 72 Respiratory Rate 16 Blood Pressure [Ri ght Upper Arm] 126/81 Pulse Oximetry 100 Course Course Hospital Course: X-ray series upon my review shows dislocated left hip arthroplasty. I did call and discuss case with Orthopedics and will be placing the patient in the hospital for surgical consultation with Orthopedics in the morning. Vital Signs Vital signs: Initial Vital Signs Temperature 97.2 F L 02/15/22 00:27 Temperature Source Temporal Artery Scan 02/15/22 00:27 Pulse Rate 72 02/15/22 00:27 Pulse Rhythm 02/15/22 00:27 Pulse Strength 3+ Normal 02/15/22 00:27 Respiratory Rate 16 02/15/22 00:27 Blood Pressure 126/81 02/15/22 00:27 Blood Pressure Mean 96 02/15/22 00:27 Blood Pressure Position Supine 02/15/22 00:27 Pulse Oximetry 100 02/15/22 00:27 Oxygen Delivery Method 02/15/22 00:27 Vital Signs Temperature 97.2 F L 02/15/22 00:27 Pulse Rate 72 02/15/22 00:27 Respiratory Rate 16 02/15/22 00:27 Blood Pressure 126/81 02/15/22 00:27 Pulse Oximetry 100 02/15/22 00:27 Temperature 97.2 F L 02/15/22 00:27 Pulse Rate 72 02/15/22 00:27 Respiratory Rate 16 02/15/22 00:27 Blood Pressure 126/81 02/15/22 00:27 Pulse Oximetry 100 02/15/22 00:27 MDM - Fall Medical Records Medical records narrative: I have reviewed her previous hospitalization. Discharge Plan Discharge Clinical Impression: Dislocation, hip Patient Disposition: Admitted As Inpatient Condition: Stable Activity Level: No Weight Bearing Diet Detail: NPO Prescriptions: No Action dextroamphetamine-amphetamine [Adderall XR] 15 mg capsule,extended release 24hr 15 mg PO DAILY 0RF ascorbic acid (vitamin C) 500 mg tablet 500 mg PO DAILY 0RF bisacodyl 5 mg tablet,delayed release (DR/EC) 10 mg PO HS PRN0RF bupropion HCl 300 mg tablet extended release 24 hr 300 mg PO DAILY 0RF cholecalciferol (vitamin D3) 25 mcg (1,000 unit) capsule 25 mcg PO DAILY 0RF citalopram 40 mg tablet 40 mg PO DAILY 0RF coenzyme Q10 50 mg capsule 50 mg PO DAILY 0RF furosemide 40 mg tablet 40 mg PO DAILY 0RF minocycline 100 mg capsule 100 mg PO Q12H 0RF levothyroxine 50 mcg tablet 50 mcg PO DAILY 0RF lorazepam 1 mg tablet 1 mg PO TID PRN0RF pregabalin 300 mg capsule 300 mg PO BID 0RF Classic 28 mg iron- 800 mcg tablet PO DAILY 0RF trazodone 100 mg tablet 100 mg PO HS 0RF celecoxib 200 mg Capsule 200 mg PO BID Qty: 60 0RF oxycodone 5 mg Tablet 2.5 - 10 mg PO Q2H PRN (Reason: Pain) Qty: 30 0RF Xarelto 10 mg Tablet 10 mg PO DAILY Qty: 3 0RF aspirin 81 mg capsule 81 mg PO BID Qty: 60 2RF Rx Instructions: start on 02/17/22 for one month sennosides-docusate sodium [Senna-S] 8.6-50 mg tablet 1 - 4 tab-cap PO BID Qty: 60 0RF Rx Instructions: Hold medication if experiencing loose stools. Follow Up/Referrals: Jack Zavala MD [Primary Care Provider] -
--- NOTE | 2022-02-15 03:00 | ED.NURSE ---
did bed request, called [facility] about request
[2022-02-15 04:09] LABS: SARS PCR* Negative SARS-CoV-2 (Negative)
[2022-02-15] MEDS: LORazepam 2 MG/ML inj 1 MG IVP (04:15)
--- NOTE | 2022-02-15 04:58 | P.IMCN_ITS ---
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), stage II Colon polyps Factor V Leiden Family history of clotting disorder Fibromyalgia Generalized anxiety disorder Hypothyroidism Neurofibromatosis Postoperative deep vein thrombosis (DVT) Recurrent major depression Syncope Traumatic brain injury Surgical History (Updated 02/11/22 @ 15:31 by Alison Nuno MD) History of arthroplasty of left knee History of total abdominal hysterectomy and bilateral salpingo-oophorectomy Hx laparoscopic cholecystectomy Hx of appendectomy Hx of LASIK S/P tendon repair S/P tendon repair Social History Smoking Status: Never smoker Do you use any of these nicotine containing products: None Second hand tobacco smoke exposure: No How often do you have a drink containing alcohol: monthly or less How many standard drinks containing alcohol do you have on a typical day: 1 or 2 How often do you have six or more drinks on one occasion: Never AUDIT-C Alcohol total score: 1 Non-prescribed substance use: marijuana (any form) service: No Meds Home Medications and Allergies Home Medications Medication Instructions Recorded Confirmed Type ascorbic acid (vitamin C) 500 mg 500 mg PO DAILY 02/11/22 02/11/22 History tablet bisacodyl 5 mg tablet,delayed 10 mg PO HS PRN 02/11/22 02/11/22 History release bupropion HCl 300 mg 24 hr tablet, 300 mg PO DAILY 02/11/22 02/11/22 History extended release cholecalciferol (vitamin D3) 25 25 mcg PO DAILY 02/11/22 02/11/22 History mcg (1,000 unit) capsule citalopram 40 mg tablet 40 mg PO DAILY 02/11/22 02/11/22 History coenzyme Q10 50 mg capsule 50 mg PO DAILY 02/11/22 02/11/22 History dextroamphetamine-amphetamine ER 15 mg PO DAILY 02/11/22 02/11/22 History 15 mg 24hr capsule,extend release (Adderall XR) furosemide 40 mg tablet 40 mg PO DAILY 02/11/22 02/11/22 History levothyroxine 50 mcg tablet 50 mcg PO DAILY 02/11/22 02/11/22 History lorazepam 1 mg tablet 1 mg PO TID PRN 02/11/22 02/11/22 History minocycline 100 mg capsule 100 mg PO Q12H 02/11/22 02/11/22 History pregabalin 300 mg capsule 300 mg PO BID 02/11/22 02/11/22 History vits no.126-ferrous fum tab PO DAILY 02/11/22 History 28 mg iron-folic acid 800 mcg tablet (Classic ) trazodone 100 mg tablet 100 mg PO HS 02/11/22 02/11/22 History Allergies Allergy/AdvReac Type Severity Reaction Status Date / Time adhesive Allergy Severe Hives Verified 02/13/22 01:23 bee venom protein (honey bee) Allergy Severe Anaphylaxis Verified 02/13/22 01:23 Exam Const: Vital Signs, click to edit/add: Vital Signs - 24 hr 02/15/22 00:27 02/15/22 02:23 02/15/22 02:30 Temperature 97.2 F L Pulse Rate [Left P ulse Oximeter] 72 95 91 Respiratory Rate 16 16 16 Blood Pressure [Ri ght Upper Arm] 126/81 124/67 123/71 Pulse Oximetry 100 97 100 02/15/22 03:00 02/15/22 03:30 Temperature Pulse Rate [Left P ulse Oximeter] 83 87 Respiratory Rate 16 16 Blood Pressure [Ri ght Upper Arm] 129/75 129/75 Pulse Oximetry 100 98 Assessment and Plan Assessment and plan (1) Dislocation, hip: Status: Acute Plan [facility] Hospitalist CONSULTATION NOTE: Reason for consult: Hip dislocation HPI: Patient is a pleasant 56-year-old female who recently had surgical repair of her left hip around 5 days ago and today presents following dislocation of the left hip. Patient reports that she was in the kitchen and she started to slip because she had her ANTOINETTE hose on. She tried to correct initial slipped and then ended up falling and dislocating her hip. She is brought in by EMS and received pain medications. She has not had significant pain since arrival per her report. However she was diaphoretic and experienced chills in the ED. She has not had a recent headache or lightheadedness. She denies any recent chest pain or shortness of breath. She has not had abdominal pain, nausea, vomiting. She did have some diarrhea earlier in the week, but none the last day or 2. She did not have any fevers but as mentioned had some chills in the ED. She also reports seeing things in her lower abdomen move when she fell down and was concerned that her hip prosthesis was in her abdominal cavity. Patient is a non-smoker. She does drink alcohol on occasion. She also uses marijuana regularly but not on a daily basis. She does not use other recreational drugs. We did discuss CODE STATUS and patient wishes to be full code. Exam (performed via interactive video with assistance of bedside nurse): General: Alert, cooperative, no acute distress HEENT: Pupils reported ERRL, oral mucosa pink and moist without erythema Lungs: Clear to auscultation bilaterally without crackle or wheeze CV: Regular rate and rhythm without loud murmur rub or gallop Abd: Patient endorses some mild tenderness in her right lower quadrant, but otherwise is nontender to palpation. Ext: Trace edema bilateral lower extremity Skin: No rashes, bruises or lesions appreciated on gross visualization of exposed skin Neuro: Alert, oriented x 3. CN III -VII, XI, XII grossly intact, moves all extremities without any significant focal deficit appreciated by nurse Assessment and Plan: 1. Left hip dislocation Patient is a pleasant 56-year-old female admitted for dislocation of her recently repaired left hip. Orthopedics will evaluate her later this morning and has asked that she be kept n.p.o. in case she goes to the OR. PRNs have been placed for pain and nausea. Patient will need her chronic outpatient medications restarted as appropriate when they are fully verified. Enoxaparin has been placed for DVT prophylaxis. Patient is a full code. Thank you for including James Burton in the patients care. This service is available for further assistance as requested by your care team by calling [phone].
--- NOTE | 2022-02-15 06:45 | PC.NURSE ---
Admit to floor at 0440. Patient cooperative with admission. Fatigued. Perez patent. Old dressing to L. hip C/D/I. NPO.
[2022-02-15] MEDS: MORPHINE 4 MG/ML INJ IVP ×3 (08:01→20:15)
--- NOTE | 2022-02-15 09:05 | CRLHL7_ITS ---
For Patients: As a result of the Cures Act, medical imaging exams and procedure reports are released immediately into your electronic medical record. You may view this report before your referring provider. If you have questions, please contact your health care provider. HISTORY: Hip reduction attempts. TECHNIQUE: AP pelvis and cross-table lateral hip radiographs. COMPARISON: 02/15/2022. FINDINGS: On the 1st set of images, there remains a dislocation of the left total hip arthroplasty. On the subsequent images, the dislocation has been reduced. There is no acute fracture. No right hip joint space narrowing. IMPRESSION: 1. On the final images, the left total hip replacement dislocation has been reduced. 2. No acute fracture. Dictated by Bradly Bowie MD @ 02/15/2022 11:23:49 AM Dictated by: Bradly Bowie MD @ 02/15/2022 11:23:59 (Electronically Signed)
--- NOTE | 2022-02-15 10:18 | W.ANESCHARGE ---
Anesthesia Charges Start Date/Time Anesthesia Start Date: 02/15/22 Anesthesia Start Time: 09:00 Stop Date/Time Anesthesia Stop Date: 02/15/22 Anesthesia Stop Time: 10:10 Summary Emergency: Yes
--- NOTE | 2022-02-15 11:48 | PM.ORCN ---
History of Present Illness HPI Time Seen by Provider: 08:00 Date Seen: 02/15/22 Consult date: 02/15/22 Requesting physician: Zaid Gonzalez Chief complaint: Left hip dislocation Narrative: Kelly is a very pleasant 56-year-old young lady, on med surge today after arriving at the emergency room early this morning. She was ambulating in her home and states that her Sher stockings were slipping on her floor with her legs both abducting as if she was going to do the splits, she fell to her knees, landed on her left knee and dislocated her left hip. Last week she fractured her proximal femur and also sustained an acetabular fracture. She underwent total hip replacement by Dr. Arroyo on 02/09/2022. She states she was doing very well at home yesterday. She has many stairs in her home and was able to climb the stairs. Her left for short period of time and she wanted to get a drink of water at the time of her fall. She currently has left hip pain with left lower extremity external rotation and shortening. Review of Systems Status of ROS: Reports: 6 or more systems reviewed and unremarkable except as noted in History and below Narrative: Patient denies nausea, vomiting, fever, chills, chest pain, shortness of breath Integ/Breast: Reports: rash (Erythematous rash left thigh with skin tenderness in this area.), redness and skin tenderness 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), stage II Colon polyps Factor V Leiden Family history of clotting disorder Fibromyalgia Generalized anxiety disorder Hypothyroidism Neurofibromatosis Postoperative deep vein thrombosis (DVT) Recurrent major depression Syncope Traumatic brain injury Surgical History (Updated 02/15/22 @ 12:14 by Mar Choudhury PA-C) History of arthroplasty of left knee History of total abdominal hysterectomy and bilateral salpingo-oophorectomy Hx laparoscopic cholecystectomy Hx of appendectomy Hx of LASIK S/P tendon repair S/P tendon repair Social History Highest level of school completed/degree received: Associate degree: academic program Smoking Status: Never smoker Do you use any of these nicotine containing products: None Second hand tobacco smoke exposure: No How often do you have a drink containing alcohol: monthly or less How many standard drinks containing alcohol do you have on a typical day: 1 or 2 How often do you have six or more drinks on one occasion: Never AUDIT-C Alcohol total score: 1 Non-prescribed substance use: marijuana (any form) Caffeine: Yes service: No Meds Home Medications and Allergies Home Medications Medication Instructions Recorded Confirmed Type ascorbic acid (vitamin C) 500 mg 500 mg PO DAILY 02/11/22 02/11/22 History tablet bisacodyl 5 mg tablet,delayed 10 mg PO HS PRN 02/11/22 02/11/22 History release bupropion HCl 300 mg 24 hr tablet, 300 mg PO DAILY 02/11/22 02/11/22 History extended release cholecalciferol (vitamin D3) 25 25 mcg PO DAILY 02/11/22 02/11/22 History mcg (1,000 unit) capsule citalopram 40 mg tablet 40 mg PO DAILY 02/11/22 02/11/22 History coenzyme Q10 50 mg capsule 50 mg PO DAILY 02/11/22 02/11/22 History dextroamphetamine-amphetamine ER 15 mg PO DAILY 02/11/22 02/11/22 History 15 mg 24hr capsule,extend release (Adderall XR) furosemide 40 mg tablet 40 mg PO DAILY 02/11/22 02/11/22 History levothyroxine 50 mcg tablet 50 mcg PO DAILY 02/11/22 02/11/22 History lorazepam 1 mg tablet 1 mg PO TID PRN 02/11/22 02/11/22 History minocycline 100 mg capsule 100 mg PO Q12H 02/11/22 02/11/22 History pregabalin 300 mg capsule 300 mg PO BID 02/11/22 02/11/22 History vits no.126-ferrous fum tab PO DAILY 02/11/22 History 28 mg iron-folic acid 800 mcg tablet (Classic ) trazodone 100 mg tablet 100 mg PO HS 02/11/22 02/11/22 History Allergies Allergy/AdvReac Type Severity Reaction Status Date / Time adhesive Allergy Severe Hives Verified 02/13/22 01:23 bee venom protein (honey bee) Allergy Severe Anaphylaxis Verified 02/13/22 01:23 Ortho Exam Narrative Exam Narrative: The left hip is examined this morning. The left thigh has an erythematous rash that is tender to the touch and warm. Any movement of the left lower extremity is very painful. The left leg is shortened and in external rotation. She is able to dorsiflex and plantar flex the left ankle great toe. Sensation is intact left lower extremity. Pedal pulses DP and PT 2+. Const Vital Signs, click to edit/add: Vital Signs - 24 hr 02/15/22 00:27 02/15/22 02:23 02/15/22 02:30 Temperature 97.2 F L Pulse Rate [Left Pulse Oximeter] 72 95 91 Respiratory Rate 16 16 16 Blood Pressure [Right Radial Artery] Blood Pressure [Right Upper Arm] 126/81 124/67 123/71 Pulse Oximetry 100 97 100 02/15/22 03:00 02/15/22 03:30 02/15/22 04:47 Temperature 98.0 F Pulse Rate [Left Pulse Oximeter] 83 87 78 Respiratory Rate 16 16 18 Blood Pressure [Right Radial Artery] 137/90 H Blood Pressure [Right Upper Arm] 129/75 129/75 Pulse Oximetry 100 98 99 02/15/22 04:52 02/15/22 08:41 Temperature 98.0 F 98.0 F Pulse Rate [Left Pulse Oximeter] 78 81 Respiratory Rate 18 18 Blood Pressure [Right Radial Artery] 137/90 H 131/71 Blood Pressure [Right Upper Arm] Pulse Oximetry 99 98 Documenting provider has reviewed patient's vital signs: yes Common normals: no apparent distress (No acute distress, however certainly experiencing pain at rest in her bed t), average body habitus and oriented x3 General appearance: cooperative and well kempt Orientation/consciousness: Yes awake, Yes oriented to person, Yes oriented to place and Yes oriented to time HENOR Common normals: Yes hearing grossly normal bilaterally Resp Common normals: Yes normal respiratory effort, Yes no retractions and Yes no use of accessory muscles Effort & inspection: able to speak in complete sentences and symmetric chest movement Cardio Common normals: Yes no JVD Peripheral pulses: posterior tibial pulses present and dorsalis pedis pulses present Extremity Common normals: no calf tenderness Left lower extremity: hip joint ( left lower extremity externally rotated and shortened) Other: Ecchymosis located over anterior left knee. Neuro Common normals: oriented x3 Sensorium/orientation: awake, oriented to person, oriented to place and oriented to time Psych Common normals: mental status grossly normal, thought process normal, cooperative, affect normal and speech normal Appearance: grossly normal and well kempt Attitude: calm and engaged Activity/motor behavior: appropriate eye contact Speech: normal speech Mood and affect: euthymic mood Thought process: normal thought process Thought content: normal thought content Attention/concentration: attention grossly intact Memory/cognition: memory grossly intact Insight: insight good Judgement: judgment good Skin General skin exam: Yes erythema (Erythema and warmth with mild tenderness to palpation in this area.) Results Labs Labs: Laboratory Results - last 48 hr 02/15/22 03:32 SARS-CoV-2 (PCR) Negative SARS-CoV-2 Diagnostic results Hip x-ray: report reviewed and image reviewed Additional Comments: X-rays are reviewed of the left hip an AP pelvis after arrival to the emergency room early this morning. This shows interval superior dislocation of the left femoral prosthesis. No acute fractures aggressive bone lesions are identified. AP and lateral views left hip taken after several attempts at reduction, final images show left total hip replacement dislocation has been reduced. No acute fracture. Procedures Orthopedic Joint Reduction Left total hip arthroplasty reduction of dislocated hip: Time out performed: Yes Side: left Joint reduction location: hip Analgesia: procedural sedation Technique used: other (tracion and internal rotation with downward pressure of hip joint for hip was dislocated anteriorly) Post-reduction neuro exam: intact Post-reduction vascular exam: intact Post-reduction x-ray obtained: Yes Post-reduction x-ray results: reduced Splint applied: No Patient tolerated procedure: well Additional comments: CPT 46323-50 (Please add this CPT code for the CPT section of john paul not yet working) Written and verbal Consent for left hip reduction requiring bedside sedation/anesthesia is obtained by the patient. Patient is made aware prior to the procedure that there is a possibility that the hip is not reducible. Further procedures/revision may be required if the hip remains unstable post reduction Or if the hip is not reducible closed. she states understanding. Procedural Sedation Indications: other (Sedation required for reduction of left hip dislocation, anesthesia by Fermin) Sedation provider same as procedural provider: No Assessment and Plan Assessment and plan (1) Dislocation, hip: Problem comment: Left hip, close reduction with the assistance of Anesthesia and x-ray services and Dr Hall. Status: Acute Assessment and Plan: After several attempts, the left hip was reduced. This did not take much force. I would like Kelly to see Dr. Arroyo next week. I will e-mail our staff to contact her for an appointment. hip reduction felt rather unstable. Anterior hip precautions. Physical therapy assisted the patient today after the reduction and she was able to walk about the room, cautiously with 2 assist. She would prefer to discharge to home. I agree. She is currently not able to return home today, for she requires more physical therapy and to be able to perform ambulation safely on her own. She has a helpful , Ronnie and relatives staying at her house as well for the next 10 days. Ronnie is not able to come tomorrow morning to have physical therapy work with him and Kelly together, however 1 of her family members is able to come tomorrow morning at 9:00 a.m.. She may Need home PT, she may require a 2 wheeled walker and other equipment for her home, for example seat riser for her toilet. Physical therapy and occupational therapy will assist with determining her needs, Blanca OT and Susana PT assisted her in her room today. If she continues to progress with physical therapy, likely discharge to home tomorrow. Total time spent: Total time spent is greater than 50% in coordination of care (as documented) at patient's floor/unit and/or counseling patient:70min (2) Status post left hip replacement: Problem comment: Left hip replacement 02/09/2022, [facility], Dr. Arroyo Status: Acute (3) Cellulitis: Problem comment: Left thigh Status: Acute Assessment and Plan: Keflex 500 mg q.i.d. has been started. She will take this for 10 days.
[2022-02-15] MEDS: cephALEXin 500 MG CAPSULE PO ×3 (12:44→20:50)
[2022-02-15] MEDS: TRAMADOL HCL 50 MG TABLET PO (14:03)
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
[2022-02-15] MEDS: BACLOFEN 10 MG TABLET PO ×2 (15:27→20:50)
[2022-02-15] MEDS: LORazepam 1 MG TABLET PO (15:28)
--- NOTE | 2022-02-15 17:20 | PC.NURSE ---
-19: pt pleasant and cooperative. A x 2 with gb and walker. c/o pain 10/10 in her left hip - see eMAR, Ice applied as well. pt now more comfortable and rating pain 5/10. Redness noted to left thigh near surgical dressing, abx started. VS WNL. Perez patent and draining.
[2022-02-15] MEDS: PREGABALIN 100 MG CAPSULE 300 MG PO (20:51)
[2022-02-15] MEDS: CELECOXIB 200 MG CAPSULE PO (20:52)
[2022-02-15] MEDS: ENOXAPARIN 40 MG/0.4 ML INJ SUBCUT (20:52)
[2022-02-15] MEDS: TRAZODONE HCL 50 MG TABLET 100 MG PO (21:10)
[2022-02-16] MEDS: MORPHINE 4 MG/ML INJ IVP ×3 (00:55→05:15)
[2022-02-16 04:30] VITALS: BP 114/77; PULSE 75; RESP 18; TEMP 36.7; O2SAT 98
[2022-02-16] MEDS: TRAMADOL HCL 50 MG TABLET PO ×3 (04:45→18:04)
[2022-02-16] MEDS: BACLOFEN 10 MG TABLET PO ×3 (04:45→19:08)
--- NOTE | 2022-02-16 05:51 | PC.NURSE ---
Shift note: The pt was reporting severe muscle spasms last night; PRN Baclofen and Pain medication were given ; the symptoms was improved. The pt was 2-assist with a gait belt and walker from chair to bed. The dressing tot left hip has been C/D/I; Redness noted at the site. The pt has been denied short of breath and chest pain
[2022-02-16] MEDS: LEVOTHYROXINE 50 MCG TABLET PO (07:58)
[2022-02-16 08:04] VITALS: BP 118/76; PULSE 81; RESP 16; TEMP 36.8; O2SAT 98
[2022-02-16] MEDS: CITALOPRAM HYDROBROMIDE 20 MG TABLET 40 MG PO (09:07)
[2022-02-16] MEDS: buPROPion XL 150 MG TABLET 300 MG PO (09:07)
[2022-02-16] MEDS: cephALEXin 500 MG CAPSULE PO ×4 (09:08→20:59)
[2022-02-16] MEDS: PREGABALIN 100 MG CAPSULE 300 MG PO ×2 (09:08→20:59)
[2022-02-16] MEDS: CELECOXIB 200 MG CAPSULE PO ×2 (09:08→21:00)
[2022-02-16] MEDS: ACETAMINOPHEN 325 MG TABLET 650 MG PO (09:11)
[2022-02-16 11:11] VITALS: BP 131/79; PULSE 96; RESP 18; TEMP 36.6; O2SAT 100
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
[2022-02-16] MEDS: SENNOSIDES/DOCUSATE TABLET 1 TAB PO (13:49)
--- NOTE | 2022-02-16 13:56 | PC.NURSE ---
Shift Summary: Patient pleasant and cooperative. Pain controlled well with PRN medication and continuous ice. One assist, walker and gait belt. Has been ambulating in halls, tolerating activity well. Rates pain 1-5/10. Denies nausea, SOB or chest pain. Vitals stable and WNL. Dressing over left hip dry and intact.
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
[2022-02-16 15:00] VITALS: BP 126/75; PULSE 88; PULSE 91; RESP 16; RESP 18; TEMP 36.8; O2SAT 99
--- NOTE | 2022-02-16 16:02 | PM.IMPN1 ---
Progress Note: A&P Assessment and plan (1) Dislocation, hip: Problem details: Left hip. Status: Acute Assessment and Plan: Status post closed reduction yesterday with persistently good results. Tolerating increased activities. Patient will have support her home tomorrow including from her aunt, her cousin, and her . Tentatively plan and possible discharge home tomorrow. (2) Fracture of head of left femur: Problem details: 02/11/22 left total hip arthroplasty - anterior approach for left femoral head fracture Status: Acute (3) Fall: Status: Acute Assessment and Plan: Using roller walker now. Working with Physical therapy and Occupational therapy. 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 She had a DVT in my right hand 25 years ago after an IV for a surgery. She has had several surgeries in life with no bleeding issues. Her mother has the same factor 2 abnormality and has never had bleeding issues, but has had multiple PEs and DVTs. She is very vague and unclear about the details. I have [facility], but those go back only to 2017 and a note from 2018 mentions these similar vague details. 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 PT/PTT were checked prior to surgery 02/10/2022 and were both within normal limits. Status: Chronic Plan Answered patient questions to her satisfaction. She is agreeable with above stated plans. Time Spent With Patient Total time spent: 30 minutes Subjective Time Seen by Provider: 11:00 Date Seen: 02/16/22 Interval history: Hospital day 2. Slowly improving. Pain under better control. Tolerating increased activities. Denies chest heaviness, pressure, tightness or pain. Denies syncope or near-syncope. Denies orthostasis. Denies nausea or vomiting. Tolerating oral intake. No dyspnea or cough. Exam Narrative: Exam Narrative: Alert, oriented to self, place, time, situation. Pleasant, cooperative. Mood and affect are congruent. Lungs are clear to auscultation. Heart tones with regular rhythm. Abdomen with active bowel sounds, soft, nontender. Ambulates billy with standby assist and use of roller walker. Transfers independently with standby assist and use of roller walker. Const: Vital Signs, click to edit/add: Vital Signs - 24 hr 02/15/22 19:55 02/15/22 23:00 02/16/22 04:30 Temperature 98.3 F 98.2 F 98.1 F Pulse Rate [Left P ulse Oximeter] 92 97 75 Respiratory Rate 18 18 18 Blood Pressure [Ri ght Radial Artery] 104/63 108/57 L 114/77 Pulse Oximetry 100 97 98 02/16/22 08:04 02/16/22 11:11 Temperature 98.2 F 97.8 F Pulse Rate [Left P ulse Oximeter] 81 96 Respiratory Rate 16 18 Blood Pressure [Ri ght Radial Artery] 118/76 131/79 Pulse Oximetry 98 100
[2022-02-16] MEDS: FUROSEMIDE 40 MG TABLET PO (16:32)
--- NOTE | 2022-02-16 18:56 | CRLHL7_ITS ---
For Patients: As a result of the Cures Act, medical imaging exams and procedure reports are released immediately into your electronic medical record. You may view this report before your referring provider. If you have questions, please contact your health care provider. INDICATION: Pain. TECHNIQUE: AP view of the pelvis. FINDINGS: Normal appearance osseous structures. No fractures seen. Normal alignment in both hips. Left total hip arthroplasty. Components are intact. Components are in anatomic alignment. IMPRESSION: Anatomic alignment with the left total hip arthroplasty. No change from prior exam 02/15/2022. Dictated by Raoul Joy MD @ 02/17/2022 10:29:26 PM (Electronically Signed)
[2022-02-16 19:45] VITALS: BP 126/61; PULSE 88; RESP 16; TEMP 36.6; O2SAT 98
--- NOTE | 2022-02-16 20:04 | PC.NURSE ---
-19: pt. up w/SBA and walker. Med times adjusted to later start in day d/t nausea from pills, per pt. Only eating 1 meal per day, few snacks. Reminded on need for activity and sitting up in chair throughout the day. Walked in billy, O2 sats maintained for approximately 3 minutes before dropping to 85-86% on 2L NC, became SOB w/walking but recovered within 1-2 minutes at rest. Tolerated room air while asleep for nearly 30 minutes, w/sats low 90s. Otherwise, O2 at 1-2L/min to maintain sats above 90%, 3L w/activity per RT. Pt. denied pain, other issues. Tele maintains manoj arrhythmia in 50s-80s. Pt. had 3 visitors today.
--- NOTE | 2022-02-16 20:27 | PC.NURSE ---
: Pt. up w/SBA in room and billy, using walker and gait belt. Tolerated activity very well. Pain rated 3/10, alleviated initially w/PRN meds. Shortly before shift change, pt. having intense 7/10 left anterior thigh pain. Attempted to ice, reposition and massage area on her own. No relief. Updated Dr. Mayen. Left hip x-ray ordered at bedside. Pt. given PRn baclofen and moved to the bed, Ax1. Tolerated this movement and appeared more comfortable but still in pain laying flat. She was reminded not to lie on stomach, and educated to use total hip protocols. Report given to CLAUDIA Granger.
[2022-02-16] MEDS: ENOXAPARIN 40 MG/0.4 ML INJ SUBCUT (20:59)
[2022-02-16] MEDS: TRAZODONE HCL 50 MG TABLET 100 MG PO (21:01)
[2022-02-16 23:30] VITALS: RESP 18
--- NOTE | 2022-02-16 23:42 | PC.NURSE ---
Shift note: The pt has been reporting comfortably throughout the shift, she reporting mild pain to left hip. She appeared without any distress.
[2022-02-17 04:37] VITALS: RESP 18
[2022-02-17 05:00] VITALS: BP 129/67; PULSE 68; RESP 18; TEMP 36.6; O2SAT 98
[2022-02-17] MEDS: LEVOTHYROXINE 50 MCG TABLET PO (05:30)
--- NOTE | 2022-02-17 06:24 | PC.NURSE ---
SHIFT NOTE 23-07: Pt is A&O, pleasant and cooperative, slept most of the night. VSS on RA. Minimal pain reported by pt, pt declined pain medication. Up to BR with a walker and 1 assist this AM, pt tolerated well. Pt hopeful to d/c home today.
[2022-02-17 07:00] VITALS: BP 126/71; PULSE 73; RESP 18; TEMP 36.7; O2SAT 100
[2022-02-17 07:14] LABS: Chloride* 107 mmol/L (96-114); Potassium* 3.5 mmol/L (3.6-5.1); Sodium* 139 mmol/L (135-149)
[2022-02-17 07:17] LABS: Blood Urea Nitrogen* 14 mg/dL (7-30); Carbon Dioxide* 30 mmol/L (20-32); Creatinine* 0.7 mg/dL (0.5-1.5); Est. Creatinine Clearance* 89.45; Estimated Glomerular Filt Rate 100.81
[2022-02-17 07:18] LABS: Calcium* 8.2 mg/dL (8.4-10.6); Glucose* 98 mg/dL (60-115)
--- NOTE | 2022-02-17 08:22 | PM.ORPN ---
Subjective Subjective Time Seen by Provider: 07:30 Date Seen: 02/17/22 Principal diagnosis: Status post left hip dislocation/total hip arthroplasty Interval history: Hospital day 2. Slowly improving. Pain under better control. Tolerating increased activities. Denies chest heaviness, pressure, tightness or pain. Denies syncope or near-syncope. Denies orthostasis. Denies nausea or vomiting. Tolerating oral intake. No dyspnea or cough. Ortho Exam Narrative Exam Narrative: Alert and oriented x3. Patient is in no acute distress. Converses without labored breathing. Hearing is grossly intact. Ambulates with a walker. Examination of the left lower extremity shows edema within the left thigh. Erythema has disappeared in the left thigh. Ambulation has been improving per staff. CMS intact left lower extremity. Dressing intact. Const Vital Signs, click to edit/add: Vital Signs - 24 hr 02/16/22 11:11 02/16/22 15:00 02/16/22 19:45 Temperature 97.8 F 98.3 F 97.9 F Pulse Rate [Left Dorsalis Pedis] Pulse Rate [Left Pulse Oximeter] 96 88 88 Respiratory Rate 18 16 16 Blood Pressure [Right Radial Artery] 131/79 126/75 126/61 Pulse Oximetry 100 99 98 02/16/22 23:30 02/17/22 04:37 02/17/22 05:00 Temperature 98 F Pulse Rate [Left Dorsalis Pedis] 68 Pulse Rate [Left Pulse Oximeter] Respiratory Rate 18 18 18 Blood Pressure [Right Radial Artery] 129/67 Pulse Oximetry 98 02/17/22 07:00 Temperature 98.1 F Pulse Rate [Left Dorsalis Pedis] Pulse Rate [Left Pulse Oximeter] 73 Respiratory Rate 18 Blood Pressure [Right Radial Artery] 126/71 Pulse Oximetry 100 Documenting provider has reviewed patient's vital signs: yes Assessment and Plan Assessment and plan (1) Dislocation, hip: Problem details: Left hip. Status: Acute Assessment and Plan: Patient can discharge to home today if she is approved with physical therapy. She will see Orthopedics on . She Already has an appointment. Anterior hip precautions on the right. I have written a prescription for a wheeled walker. She has ordered other home supplies on [employer]. I have emailed our office to notify PA and HCB of her dislocation post total hip replacement a week ago. (2) Fracture of head of left femur: Problem details: 02/11/22 left total hip arthroplasty - anterior approach for left femoral head fracture Status: Acute (3) Fall: Status: Acute (4) Fibromyalgia: Status: Acute (5) ADHD, predominantly inattentive type: Status: Acute (6) Hypothyroidism: Status: Chronic (7) CKD (chronic kidney disease), stage II: Status: Chronic (8) Factor V Leiden: Problem details: Kelly stated she has a factor 2 abnormality that causes clotting. She had a DVT in my right hand 25 years ago after an IV for a surgery. She has had several surgeries in life with no bleeding issues. Her mother has the same factor 2 abnormality and has never had bleeding issues, but has had multiple PEs and DVTs. She is very vague and unclear about the details. [facility], but those go back only to 2017 and a note from 2018 mentions these similar vague details. 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 PT/PTT were checked prior to surgery 02/10/2022 and were both within normal limits. Status: Chronic
[2022-02-17] MEDS: buPROPion XL 150 MG TABLET 300 MG PO (08:37)
[2022-02-17] MEDS: CITALOPRAM HYDROBROMIDE 20 MG TABLET 40 MG PO (08:38)
[2022-02-17] MEDS: SENNOSIDES/DOCUSATE TABLET 1 TAB PO (08:38)
[2022-02-17] MEDS: FUROSEMIDE 40 MG TABLET PO (08:39)
[2022-02-17] MEDS: CELECOXIB 200 MG CAPSULE PO (08:39)
[2022-02-17] MEDS: BACLOFEN 10 MG TABLET PO (08:40)
[2022-02-17] MEDS: cephALEXin 500 MG CAPSULE PO ×2 (08:40→12:03)
[2022-02-17] MEDS: PREGABALIN 100 MG CAPSULE 300 MG PO (08:49)
[2022-02-17] MEDS: TRAMADOL HCL 50 MG TABLET PO (08:50)
[2022-02-17 11:00] VITALS: BP 120/71; PULSE 86; TEMP 36.8; O2SAT 100
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
--- NOTE | 2022-02-17 12:43 | PC.NURSE ---
Pt evaluated by PT, OT, Mar GARCIA and Dr. Flores. Please see eMar for scheduled meds provided. Pt rating her pain 0-2 out of 10. See prn meds given for pain management prior to therapy. Active ice to surgical site left hip. Surgical dressing CDI. Thigh high jocy placed on left leg d/to edematous thigh. Larger knee high jocy placed on left leg d/to constriction noted below the knee with smaller pair. Pt verbalized understanding of d/c diagnosis, new RX sent to [facility], f/up appt with Eldon GARCIA on February the and symptoms to report urgently to physician. RN returned pt's oxycodone 19 tabs (5 mg each) and her 7 day med storage container. Discharged via w/c @ 1235pm with all personal belongings to own home with her spouse Ronnie as transportation
== END 2022-02-17 12:35 | disposition home or self-care (01) ==
LOC: ED 02:20 → MEDSURG 03:07
PROVIDERS: Family Medicine; Admitting Provider Internal Medicine; Emergency Provider Internal Medicine; PCP Family Medicine; Visit Provider Internal Medicine
DX: S73.005A Unspecified dislocation of left hip, initial encounter (principal); S72.335A Nondisplaced oblique fracture of shaft of left femur, initial encounter for closed fracture; M25.552 Pain in left hip; M79.652 Pain in left thigh; S00.91XA Abrasion of unspecified part of head, initial encounter; W18.30XA Fall on same level, unspecified, initial encounter; Y93.K1 Activity, walking an animal; Y92.9 Unspecified place or not applicable; E87.6 Hypokalemia; R25.2 Cramp and spasm; Z86.718 Personal history of other venous thrombosis and embolism; D68.2 Hereditary deficiency of other clotting factors; Q60.0 Renal agenesis, unilateral; N18.2 Chronic kidney disease, stage 2 (mild); I20.9 Angina pectoris, unspecified; E03.9 Hypothyroidism, unspecified; R55 Syncope and collapse; M79.7 Fibromyalgia; Q85.00 Neurofibromatosis, unspecified; Z87.820 Personal history of traumatic brain injury; F90.0 Attention-deficit hyperactivity disorder, predominantly inattentive type; F41.8 Other specified anxiety disorders; F33.9 Major depressive disorder, recurrent, unspecified
CPT/HCPCS: 01200; 36415; 73501; 73502; 80048; 87635; 96361; 96372; 96374; 96375; 96376; 97116; 97162; 97166; 97530; 97535; 99140; 99284; 99285; A9270; G0378; G0379; J1650; J2060; J2250; J2270; J2704; J3010; J3490

== ENCOUNTER 2022-02-19 15:34 | Emergency (ER) | payer BC, SELFPAY ==
[2022-02-19] VITALS (17 sets, daily range): BP systolic 111–143; BP diastolic 66–99; PULSE 73–87; RESP 5–21; TEMP 36.6; O2SAT 98–100; BMI 30.4
--- NOTE | 2022-02-19 16:09 | ED.GENADULT ---
HPI - General Adult General Time Seen by Provider: 16:20 Date Seen: 02/19/22 Chief complaint: Hip Injury/Pain Stated complaint: Hip Pain Time Seen by Provider: 02/19/22 16:06 Source: patient History of Present Illness HPI narrative: Kelly is a 56-year-old female past medical history includes fibromyalgia, status post left hip replacement last week complicated with a dislocated and recent revision, ADHD traumatic brain injury presents emergency department via EMS with hip pain. Patient's or exercises today at home, she or and was extending her left hip to take off the foot traction and the leg went out to the side. She is unable to bend it at this time, she usually ambulates with a walker, she was post to see orthopedics tomorrow for bandage removed. The area has been healing well. She has been doing well otherwise. She denies any numbness or weakness. No other concerns at this time. Related Data Home Medications Medication Instructions Recorded Confirmed ascorbic acid (vitamin C) 500 mg 500 mg PO DAILY 02/11/22 02/24/22 tablet bisacodyl 5 mg tablet,delayed 10 mg PO HS PRN 02/11/22 02/24/22 release bupropion HCl 300 mg 24 hr tablet, 300 mg PO DAILY 02/11/22 02/24/22 extended release cholecalciferol (vitamin D3) 25 25 mcg PO DAILY 02/11/22 02/24/22 mcg (1,000 unit) capsule citalopram 40 mg tablet 40 mg PO DAILY 02/11/22 02/24/22 coenzyme Q10 50 mg capsule 50 mg PO DAILY 02/11/22 02/24/22 dextroamphetamine-amphetamine ER 15 mg PO DAILY 02/11/22 02/24/22 15 mg 24hr capsule,extend release (Adderall XR) furosemide 40 mg tablet 40 mg PO DAILY 02/11/22 02/24/22 levothyroxine 50 mcg tablet 50 mcg PO DAILY 02/11/22 02/24/22 lorazepam 1 mg tablet 1 mg PO TID PRN 02/11/22 02/24/22 minocycline 100 mg capsule 100 mg PO Q12H 02/11/22 02/24/22 pregabalin 300 mg capsule 300 mg PO BID 02/11/22 02/24/22 vits no.126-ferrous fum 1 tab PO DAILY 02/11/22 02/24/22 28 mg iron-folic acid 800 mcg tablet (Classic ) trazodone 100 mg tablet 100 mg PO HS 02/11/22 02/24/22 Previous Rx's Medication Instructions Recorded celecoxib 200 mg capsule 200 mg PO BID #60 cap 02/13/22 sennosides 8.6 mg-docusate sodium 1 - 4 tab-cap PO BID #60 tab 02/13/22 50 mg tablet (Senna-S) Lactobacillus acidophilus 1 1,000 mmu cells PO BID #60 tab 02/17/22 billion cell tablet aspirin 81 mg capsule 81 mg PO DAILY #25 cap 02/25/22 oxycodone 5 mg tablet 2.5 - 10 mg PO Q4-6H PRN #25 tab 02/25/22 oxycodone 5 mg tablet 2.5 - 5 mg PO .Q4-6 PRN #30 tab 02/25/22 MDD 6 rivaroxaban 10 mg tablet 10 mg PO DAILY #4 tab 02/25/22 Allergies Allergy/AdvReac Type Severity Reaction Status Date / Time adhesive Allergy Severe Hives Verified 02/20/22 09:17 bee venom protein (honey bee) Allergy Severe Anaphylaxis Verified 02/20/22 09:17 Review of Systems Status of ROS: Reports: 10 or more systems reviewed and unremarkable except as noted in History and below [facility] Medical History (Updated 02/25/22 @ 17:22 by Eldon Lopez PA-C) ADHD, predominantly inattentive type Anginal equivalent Chronic constipation CKD (chronic kidney disease), stage II Colon polyps Factor V Leiden Family history of clotting disorder Fibromyalgia Fracture of head of left femur Generalized anxiety disorder Hypothyroidism Insomnia Neurofibromatosis Postoperative deep vein thrombosis (DVT) Recurrent major depression Syncope Traumatic brain injury Surgical History (Updated 02/25/22 @ 17:20 by Eldon Lopez PA-C) History of arthroplasty of left knee History of bunionectomy History of total abdominal hysterectomy and bilateral salpingo-oophorectomy Hx laparoscopic cholecystectomy Hx of appendectomy Hx of blepharoplasty Hx of section Hx of LASIK S/P tendon repair S/P tendon repair Family History (Updated 02/24/22 @ 20:15 by Alison Nuno MD) Mother Coagulation disorder Depression Osteoarthritis Rheumatoid arthritis Daughter Depression Rheumatoid arthritis Maternal Grandmother Depression Osteoarthritis Thyroid disease Paternal Grandmother Depression Diabetes Social History (Updated 02/24/22 @ 20:41 by Alison Nuno MD) Narrative: wishes to be a full code Highest level of school completed/degree received: Associate degree: academic program Smoking Status: Never smoker Do you use any of these nicotine containing products: None Second hand tobacco smoke exposure: No How often do you have a drink containing alcohol: monthly or less How many standard drinks containing alcohol do you have on a typical day: 1 or 2 How often do you have six or more drinks on one occasion: Never AUDIT-C Alcohol total score: 1 Non-prescribed substance use: marijuana (any form) Caffeine: Yes service: No Exam Const: Vital Signs, click to edit/add: Vital Signs - 24 hr 02/19/22 15:36 02/19/22 16:00 02/19/22 17:00 Temperature 97.9 F Pulse Rate [Left P ulse Oximeter] 82 80 73 Respiratory Rate Blood Pressure [Ri ght Upper Arm] 137/83 143/85 H 137/72 Pulse Oximetry 100 100 99 02/19/22 17:30 02/19/22 17:35 02/19/22 17:40 Temperature Pulse Rate [Left P ulse Oximeter] 87 81 80 Respiratory Rate 16 11 L 21 Blood Pressure [Ri ght Upper Arm] 132/66 111/83 128/81 Pulse Oximetry 99 100 100 02/19/22 17:43 02/19/22 17:45 02/19/22 17:50 Temperature Pulse Rate [Left P ulse Oximeter] 85 81 86 Respiratory Rate 8 L 5 L 11 L Blood Pressure [Ri ght Upper Arm] 139/99 H 135/85 140/92 H Pulse Oximetry 100 98 100 02/19/22 17:55 02/19/22 18:00 02/19/22 18:05 Temperature Pulse Rate [Left P ulse Oximeter] 82 80 86 Respiratory Rate 11 L 8 L 10 L Blood Pressure [Ri ght Upper Arm] 117/74 124/75 130/69 Pulse Oximetry 99 100 100 02/19/22 18:10 02/19/22 18:20 02/19/22 18:31 Temperature Pulse Rate [Left P ulse Oximeter] 80 81 83 Respiratory Rate 8 L 16 11 L Blood Pressure [Ri ght Upper Arm] 133/79 127/79 142/79 H Pulse Oximetry 100 100 98 Common normals: no apparent distress and oriented x3 Orientation/consciousness: Yes awake and Yes oriented to person HENMT: Common normals: normocephalic Head and scalp: normal to inspection and normocephalic Throat: posterior oropharynx normal Eye: Common normals: PERRL, EOMs intact bilaterally and conjunctivae normal General eye: normal appearance of both eyes Conjunctiva: conjunctiva(e) normal Pupil: PERRL Neck & C-Spine: Common normals: full ROM, no lymphadenopathy and supple Lymph: Lymphatic: no lymphadenopathy noted Chest: Common normals: inspection of chest normal Resp: Common normals: normal respiratory effort and clear to auscultation bilaterally Auscultation: clear to auscultation bilaterally Cardio: Common normals: regular rhythm, S1 normal heart sound and S2 normal heart sound Rhythm: regular rhythm Heart sounds: S1 normal and S2 normal GI: Common normals: Normal to inspection, nondistended, normoactive bowel sounds present : Common normals: no CVA tenderness Bladder/kidney exam: no CVA tenderness Back & Pelvis: Common normals: no CVA tenderness and thoracic and lumbar spine normal to inspection Extremity: Other: Left lower extremity, externally rotated, with shortening, CMS intact. Unable to extend and flex the left hip, mild tenderness to to internal external rotation. Neuro: Common normals: oriented x3 Sensorium/orientation: awake and oriented to person Course Course Hospital Course: 4:15 PM: AIDET performed. vitals are stable. Workup included XR left hip 2-3 views, patient pain control at this time. to rule out dislcoation. 5:00 PM: XR left hip shows a superior lateral hip dislocation, no periprosthetic fracture. Per my read, plan to perform closed reduction under sedation. To reach out to anesthesia to perform sedation. Patient to sign a written consent. Reevaluation(s) Reevaluation #1: Closed reduction left hip performed, please see procedure note. Imaging showed 1st image showed post reduction at 6:03 p.m. persistent superior lateral dislocation of the femoral head component with respect to the left acetabular component, then a final image at 6:07 a.m. shows a successful reduction with normal alignment of the femoral and acetabular components of the left hip arthroplasty. No acute periprosthetic fracture identified. Per Dr. Shania Johnson MD. Knee immobilizer placed, patient tolerated the procedure well. Was able to speak with Eldon with orthopedics, she is scheduled to see her tomorrow for her first post op visit. Plan to discharge. Patients pain has been controlled. Time: 18:01 Vital Signs Vital signs: Initial Vital Signs Temperature 97.9 F 02/19/22 15:36 Temperature Source Temporal Artery Scan 02/19/22 15:36 Pulse Rate 82 02/19/22 15:36 Blood Pressure 137/83 02/19/22 15:36 Blood Pressure Mean 101 02/19/22 15:36 Blood Pressure Position Supine 02/19/22 15:36 Pulse Oximetry 100 02/19/22 15:36 Oxygen Delivery Method 02/19/22 15:36 Vital Signs Temperature 97.9 F 02/19/22 15:36 Pulse Rate 82 02/19/22 15:36 Blood Pressure 137/83 02/19/22 15:36 Pulse Oximetry 100 02/19/22 15:36 Temperature 97.9 F 02/19/22 15:36 Pulse Rate 77 02/19/22 19:00 Respiratory Rate 10 L 02/19/22 19:00 Blood Pressure 132/69 02/19/22 19:00 Pulse Oximetry 100 02/19/22 19:00 Discharge Plan Discharge Clinical Impression: S/P total left hip arthroplasty, Dislocation of hip, left, closed Patient Disposition: Home, Self-Care Condition: Improved Instructions: Hip Dislocation (ED) Additional Instructions: To make sure to wear the knee immobilizer until your appointment tomorrow, to continue with your current pain medications as prescribed. To follow up with Orthopedic Clinic as scheduled tomorrow. Return if worsening symptoms. Activity Level: Wear Brace Discharge Diet: Regular Prescriptions: No Action dextroamphetamine-amphetamine [Adderall XR] 15 mg capsule,extended release 24hr 15 mg PO DAILY 0RF ascorbic acid (vitamin C) 500 mg tablet 500 mg PO DAILY 0RF bisacodyl 5 mg tablet,delayed release (DR/EC) 10 mg PO HS PRN0RF bupropion HCl 300 mg tablet extended release 24 hr 300 mg PO DAILY 0RF cholecalciferol (vitamin D3) 25 mcg (1,000 unit) capsule 25 mcg PO DAILY 0RF citalopram 40 mg tablet 40 mg PO DAILY 0RF coenzyme Q10 50 mg capsule 50 mg PO DAILY 0RF furosemide 40 mg tablet 40 mg PO DAILY 0RF minocycline 100 mg capsule 100 mg PO Q12H 0RF levothyroxine 50 mcg tablet 50 mcg PO DAILY 0RF lorazepam 1 mg tablet 1 mg PO TID PRN0RF pregabalin 300 mg capsule 300 mg PO BID 0RF Classic 28 mg iron- 800 mcg tablet 1 tab PO DAILY 0RF trazodone 100 mg tablet 100 mg PO HS 0RF celecoxib 200 mg Capsule 200 mg PO BID Qty: 60 0RF sennosides-docusate sodium [Senna-S] 8.6-50 mg tablet 1 - 4 tab-cap PO BID Qty: 60 0RF Rx Instructions: Hold medication if experiencing loose stools. Lactobacillus acidophilus 1 billion cell tablet 1,000 mmu cells PO BID Qty: 60 1RF Rx Instructions: May substitute with a different pro-biotic, but must follow label directions and take for a minimum of 1 month. oxycodone 5 mg tablet 2.5 - 5 mg PO .Q4-6 MDD 6 PRN (Reason: pain) Qty: 30 0RF Rx Instructions: Take as needed for pain; 2.5 mg mild pain, 5 mg moderate-severe pain rivaroxaban 10 mg tablet 10 mg PO DAILY Qty: 4 0RF Rx Instructions: Medication for deep vein clot prevention post surgery. Complete this medication before starting Aspirin. aspirin 81 mg capsule 81 mg PO DAILY Qty: 25 0RF Rx Instructions: For deep vein clot prevention post surgery. Start this medication after completing Rivaroxaban. Take twice daily. oxycodone 5 mg tablet 2.5 - 10 mg PO Q4-6H PRN (Reason: postop pain) Qty: 25 0RF Follow Up/Referrals: Jack Zavala MD [Primary Care Provider] - Stand Alone Forms: [facility] Info Instructions Procedures Orthopedic Joint Reduction Joint #1: Written consent by: patient Side: left Joint Reduction Location: hip Manipulation used?: Yes Analgesia: procedural sedation Technique used: traction/counter-traction Post-reduction neuro vascular exam: intact Post Reduction X-Ray Obtained: Yes Post Reduction X-Ray Results: reduced Splint Applied: Yes (Knee immobilizer. ) Patient Tolerated Procedure: well
--- NOTE | 2022-02-19 16:16 | CRLHL7_ITS ---
For Patients: As a result of the Century Cures Act, medical imaging exams and procedure reports are released immediately into your electronic medical record. You may view this report before your referring provider. If you have questions, please contact your health care provider. INDICATION: Pain. Possible dislocation. COMPARISON: Pelvis from 02/16/2022. FINDINGS: The left hip was examined with AP and cross-table lateral views. An AP view of the pelvis is obtained for a total of three views. There is superior and lateral dislocation of the femoral head component of the left total hip prosthesis, with no sign of fracture of the prosthetic components or the [place] osseous structures. There is no sign of loosening of the prosthetic components. The right hip is unremarkable. The SI joints and pubic symphysis are normal in appearance. The rest of the bony pelvis and soft tissues are normal in appearance. IMPRESSION: Superior and lateral dislocation of the femoral head components of the left total hip prosthesis. Dictated by Kolby Middleton MD @ 02/19/2022 5:28:51 PM (Electronically Signed)
[2022-02-19] MEDS: 0.9 % SODIUM CHLORIDE 500 ML 500 ML IV (17:40)
--- NOTE | 2022-02-19 17:44 | CRLHL7_ITS ---
For Patients: As a result of the Century Cures Act, medical imaging exams and procedure reports are released immediately into your electronic medical record. You may view this report before your referring provider. If you have questions, please contact your health care provider. Indication: Post reduction of left hip. Technique: Two images of the left hip. Comparison: Left hip radiographs earlier same day dated 02/19/2022 time stamped 4:29 p.m. Findings/Impression: First image labeled post reduction is time stamped 6:03 p.m., and shows persistent superior and lateral dislocation of the left femoral head component with respect to the left acetabular component. Second and final image time stamped 6:07 p.m., shows successful reduction with normal alignment of the femoral and acetabular components of the left hip arthroplasty. No acute periprosthetic fracture identified. Dictated by Shania Johnson MD @ 02/19/2022 6:39:18 PM (Electronically Signed)
--- NOTE | 2022-02-20 13:52 | W.ANESCHARGE ---
Anesthesia Charges Start Date/Time Anesthesia Start Date: 02/19/22 Anesthesia Start Time: 17:35 Stop Date/Time Anesthesia Stop Date: 02/19/22 Anesthesia Stop Time: 18:00 Summary Emergency: Yes
== END 2022-02-19 19:27 | disposition home or self-care (01) ==
PROVIDERS: Emergency Provider Student in an Organized Health Care Education/Training Program; PCP Family Medicine
DX: S73.005A Unspecified dislocation of left hip, initial encounter (principal)
CPT/HCPCS: 1200; 27266; 73501; 73502; 99140; 99283; 99285; J2704; J7120

== ENCOUNTER 2022-02-24 10:07 | Day surgery (SDC) | payer BC, SELFPAY ==
[2022-02-24] VITALS (37 sets, daily range): BP systolic 92–134; BP diastolic 58–95; PULSE 63–83; RESP 16–18; TEMP 35.4–36.7; O2SAT 97–100; BMI 30.4
[2022-02-24] MEDS: OXYCODONE (CR) 10 MG TAB.ER.12H PO (10:39)
[2022-02-24] MEDS: CELECOXIB 200 MG CAPSULE PO ×2 (10:39→20:54)
[2022-02-24] MEDS: ACETAMINOPHEN 500 MG TABLET 1000 MG PO ×3 (10:39→23:41)
[2022-02-24] MEDS: SODIUM CHLORIDE 0.9 % (FLUSH) 10 ML SYRINGE IVF (10:59)
[2022-02-24] MEDS: LACTATED RINGERS 1000 ML 1,000 ML 35 ML IV ×2 (10:59→15:25)
[2022-02-24] MEDS: fentaNYL 100 MCG/2 ML inj IVP (11:31)
[2022-02-24] MEDS: MIDAZOLAM HCL 1 MG/ML inj IVP (11:31)
--- NOTE | 2022-02-24 12:09 | SUR.PREOP ---
TIME?OUT:?1230 PT/RN/MDA?VERIFICATION?OF?SURGICAL?SITE,?PROCEDURE,?AND?CONSENT OBTAINED?PRIOR?TO?INVASIVE?PROCEDURE.ALL IN AGREEMENT.
--- NOTE | 2022-02-24 13:25 | W.PM.NB ---
Nerve Block Nerve Block Time Seen by Provider: 12:50 Date Seen: 02/24/22 Type of block requested by surgeon for post-operative analgesia: KAREEM/LFCN Side: left Time out performed: Yes Verification of patient name: Yes Verification of date of : Yes Site marking: site marked Name of person performing procedure: Haile Continuous monitoring Was continuous monitoring of O2 sat, B/P, traffic monitor specialist, recorded every 15 minutes?: Yes Procedure Checklist: sterile prep, needles and gloves Ultrasound guided. Images saved: Yes Medications given in 5ml increments after negative aspiration: Ropivicaine %: 0.5 mL: 20 Needle gauge: 20 Decadron (mg): 10 Precedex (mcg): 25 Patient tolerated procedure well: Yes Additional comments: Needle noted adjacent to nerve
--- NOTE | 2022-02-24 13:35 | SUR.PREOP ---
PT RESTING COMFORTABLY IN ROOM 7, WAITING TO GO TO OR. VITALS STABLE, WILL CONTINUE TO ASSESS.
[2022-02-24] MEDS: CEFAZOLIN 2 GM INJ IVP (14:22)
--- NOTE | 2022-02-24 14:24 | CRLHL7_ITS ---
For Patients: As a result of the Cures Act, medical imaging exams and procedure reports are released immediately into your electronic medical record. You may view this report before your referring provider. If you have questions, please contact your health care provider. Indication: LEFT HIP REVISION Technique: AP hip fluoroscopic images. Fluoroscopy time 13.8 seconds. Findings/Impression: Hardware from a left total hip arthroplasty is in satisfactory position. Dictated by Jack Gray MD @ 02/24/2022 3:57:18 PM (Electronically Signed)
--- NOTE | 2022-02-24 15:44 | P.ORPRC_ITS ---
Procedure Note Procedure: PREOPERATIVE DIAGNOSIS: 1. Left hip Recurrent anterolateral instability following traumatic event 10 days postop from left MARLON POSTOPERATIVE DIAGNOSIS: 1. Left hip Recurrent anterolateral instability following traumatic event 10 days postop from left MARLON PROCEDURE: 1. Left total hip revision arthroplasty including both femoral and acetabular components-anterior approach 2. 19121 - intraoperative fluoroscopy up to 1 hour. SURGEON: Justin Arroyo MD. COLD STRIP FEEDER: [ Eldon Lopez PA-C; ELAINA Norwood] - Of note, a skilled help desk assistant was critical for this case to aid in patient positioning, tissue retraction, limb manipulation/positioning, dislocation/relocation, patient safety, and closure. ANESTHESIA: Spinal anesthetic EBL: less than 100 mL IMPLANTS: DePuy J&J uncemented total hip Brewster cup size 48 ( maintained original), hole eliminator, change to +4 (10 degree) liner Maintain the same Actis stem Changed the femoral head from a 32 (+1 mm) to a 32 ( +5 mm) ceramic head with built-in metal sleeve given likelihood of minor scratches on the trunnion COMPLICATIONS: None evident INDICATIONS: The patient is a pleasant 56-year-old female who underwent a left MARLON for the intra-articular left femoral head fracture approximately 2 we eks ago. In the postoperative time, she reports that she was standing in her kitchen with her Sher stockings in place. Her legs began to slide a part into the splits. In an effort to avoid doing the splits completely, she went down on to her left knee if not both knees. Ultimately, this had an anterolateral left hip dislocation. She presented [facility]. She was able to be reduced in the emergency department. Unfortunately, a few days later, she was trying to get up from a laying position on the floor after doing some hip exercises. The hip again dislocated. She return to the emergency department. It was reduced. However, because of the ease of recurrent dislocation/ instability and how this is not always psychological fear but a physical risk, decision was made for surgical revision of left MARLON. FINDINGS: All the sutures are still in place and thus the dissection could be followed very closely as the index surgery was just 2 weeks ago. There was a seroma encountered at various levels. Superficially this was within the subcutaneous space. Then, it was also seen deep to the TFL fascia. Finally, residual seroma was seen deep to the capsular layer. No doubt this had some connection at each level, but a very distinct fluid pocket was encountered at each level. Beyond this, the femoral head was located within the acetabular component. However, there were numerous black scratches on the acetabular head. There is no significant wear appreciated on the polyethylene itself. The acetabular component otherwise was intact and stable. The femoral stem also was intact and stable. After removing the femoral head, was found to have some minimal scratches on the trunnion itself. No foul odor was encountered throughout the dissection or the procedure. Minimal bleeding was encountered throughout the surgery as well. Generalized oozing from friable tissue related to scar tissue was noted. DESCRIPTION OF PROCEDURE: Following a thorough discussion of risks, benefits, and alternatives consent was obtained and the left hip was marked. The patient was brought to the operating room and placed supine on the operating table. Induction of anesthesia was undertaken. 2 g IV Ancef and 1 g tranexamic acid was administered within 1 hr of incision preoperatively. Proper time-out was performed identifying proper patient, site, procedure. The operative extremity was prepped and draped in the appropriate sterile fashion using ChloraPrep after the patient was positioned on the [place] table with head in neutral alignment and all bony prominences well padded. C-arm fluoroscopic imaging was utilized to confirm proper pelvis rotation and position, and to get true AP films of both the contralateral left, and the affected left hip. This is for comparison. The previous incision was readily visible not just on the skin surface but all the way deep. This could be tracked through the various suture layers of closure that were familiar to us. As mentioned in the findings, a seroma as were evacuated and thoroughly irrigated at each level. The capsular stitches showed 1 to be intact and 2 to be disrupted. At this stage, the hip was dislocated, and the femoral head removed. We utilized 1 of the broach handles to help engage the undersurface of the femoral head. This was tamped loose. We then turned our attention to the polyethylene removal. The poly thing removal device was engaged, and allowed us to remove and extract the polyethylene component. The acetabular component was tested and found to be stable and intact and thus no further manipulation performed. We trialed a +4 10 degree liner with a +5 mm 32 femoral head. This had much improved generalized stability and less laxity within the hip. C-arm fluoroscopic imaging was utilized to help confirm proper offset, leg length, and insure no periprosthetic fractures were appreciated intraoperatively. With the improvement in the stability, trial implants removed. Thorough irrigation normal saline was performed. Real polyethylene liner was inserted in the same orientation as the trial with the 10 degree buildup at approximately the 1-2 o'clock position on a clock face. Thereafter, the femoral head was inserted following thorough cleansing of the trunnion and good exposure. The head was inserted without difficulty. The hip was reduced and again confirmed to have appropriate stability with Shuck and manipulation. C-arm fluoroscopic imaging confirmed all to be in appropriate position. A 3 min Betadine soak was then performed, and thorough irrigation with normal saline followed. Closure of the capsule was performed with #1 PDS. Bleeding was confirmed to be controlled at this stage, and the TFL fascia was closed with #0 strata fix. Subcutaneous, and subcuticular closure was performed with 2-0 Vicryl and 4-0 Monocryl, respectively. Dressings were applied, and the patient was awoken from anesthesia and transferred the PACU in stable condition. A skilled help desk assistant was critical for this case to aid in patient positioning, tissue retraction, proximal femur exposure, limb manipulation/positioning, dislocation/relocation, patient safety, and closure. PLAN: 1. Weight bear as tolerated operative extremity. 2. 23 hr perioperative antibiotics. 3. Ice. 4. PT/OT consults for ambulation assistance/mobility education. 5. Social work consult for discharge planning. 6. DVT prophylaxis with at SCDs, Sher Samire, and Xarelto x5 days followed by aspirin for a total of 1 month.
--- NOTE | 2022-02-24 15:58 | CRLHL7_ITS ---
For Patients: As a result of the Century Cures Act, medical imaging exams and procedure reports are released immediately into your electronic medical record. You may view this report before your referring provider. If you have questions, please contact your health care provider. Indication: Post op LT HIP REVISION Technique: AP hip centered pelvis and lateral view left hip Findings/Impression: Hardware from a left total hip arthroplasty is in satisfactory position. Bone alignment is normal. No sign of acute fracture. Postop changes are within normal limits. Dictated by Jack Gray MD @ 02/25/2022 8:25:33 AM (Electronically Signed)
--- NOTE | 2022-02-24 16:36 | W.ANESCHARGE ---
Anesthesia Charges Start Date/Time Anesthesia Start Date: 02/24/22 Anesthesia Start Time: 14:06 Stop Date/Time Anesthesia Stop Date: 02/24/22 Anesthesia Stop Time: 16:34 Summary Emergency: No
[2022-02-24] MEDS: OXYCODONE 5 MG TABLET PO ×3 (17:41→23:43)
[2022-02-24] MEDS: HYDROmorphone 0.5 mg/0.5 ml inj IVP (17:42)
[2022-02-24] MEDS: LACTATED RINGERS 1000 ML 1,000 ML 75 ML IV (19:53)
--- NOTE | 2022-02-24 20:03 | P.IMCN_ITS ---
Date of Consult Patient: [facility] Patient Consult date: 02/24/22 Requesting Physician: Orthopedics Primary Care Provider: Jack Zavala MD Consult Narrative Reason for consult: medical management of Factor V Leiden, CKD Narrative: Kelly Mcgee is a 56 year old female who underwent a left total hip revision arthroplasty including both femoral and acetabular components, anterior approach, today by Dr. Hernandez. About 2 weeks ago she had an intra-articular left femoral head fracture after tripping and falling onto her driveway. She underwent a left total hip arthroplasty at the time and was discharged home. While standing in her kitchen with Sher stockings her legs began to slide part into the splits. She fell down onto both knees which caused an anterior lateral left hip dislocation. This was reduced in the emergency department. She dislocated the hip again a few days later while trying to get up from the floor after doing some hip exercises. It was again reduced in the emergency department. She had ongoing instability of the left hip. That combined with recurrent dislocation prompted the revision that she had today. She tells me that she feels well after surgery and her pain is still well controlled with a block. She is numb enough that she has not yet tried getting up after surgery. Review of Systems Status of ROS: Reports: 6 or more systems reviewed and unremarkable except as noted in History and below PFSH PFSH Medical History ADHD, predominantly inattentive type Anginal equivalent CKD (chronic kidney disease), stage II Colon polyps Factor V Leiden Family history of clotting disorder Fibromyalgia Fracture of head of left femur Generalized anxiety disorder Hypothyroidism Neurofibromatosis Postoperative deep vein thrombosis (DVT) Recurrent major depression Syncope Traumatic brain injury Surgical History History of arthroplasty of left knee History of total abdominal hysterectomy and bilateral salpingo-oophorectomy Hx laparoscopic cholecystectomy Hx of appendectomy Hx of LASIK S/P tendon repair S/P tendon repair Family History (Updated 02/24/22 @ 20:15 by Alison Nuno MD) Mother Coagulation disorder Depression Osteoarthritis Rheumatoid arthritis Daughter Depression Rheumatoid arthritis Maternal Grandmother Depression Osteoarthritis Thyroid disease Paternal Grandmother Depression Diabetes Social History (Updated 02/24/22 @ 20:41 by Alison Nuno MD) Narrative: wishes to be a full code Highest level of school completed/degree received: Associate degree: academic program Smoking Status: Never smoker Do you use any of these nicotine containing products: None Second hand tobacco smoke exposure: No How often do you have a drink containing alcohol: monthly or less How many standard drinks containing alcohol do you have on a typical day: 1 or 2 How often do you have six or more drinks on one occasion: Never AUDIT-C Alcohol total score: 1 Non-prescribed substance use: marijuana (any form) Caffeine: Yes service: No Meds Home Medications and Allergies Home Medications Medication Instructions Recorded Confirmed Type ascorbic acid (vitamin C) 500 mg 500 mg PO DAILY 02/11/22 02/24/22 History tablet bisacodyl 5 mg tablet,delayed 10 mg PO HS PRN 02/11/22 02/24/22 History release bupropion HCl 300 mg 24 hr tablet, 300 mg PO DAILY 02/11/22 02/24/22 History extended release cholecalciferol (vitamin D3) 25 25 mcg PO DAILY 02/11/22 02/24/22 History mcg (1,000 unit) capsule citalopram 40 mg tablet 40 mg PO DAILY 02/11/22 02/24/22 History coenzyme Q10 50 mg capsule 50 mg PO DAILY 02/11/22 02/24/22 History dextroamphetamine-amphetamine ER 15 mg PO DAILY 02/11/22 02/24/22 History 15 mg 24hr capsule,extend release (Adderall XR) furosemide 40 mg tablet 40 mg PO DAILY 02/11/22 02/24/22 History levothyroxine 50 mcg tablet 50 mcg PO DAILY 02/11/22 02/24/22 History lorazepam 1 mg tablet 1 mg PO TID PRN 02/11/22 02/24/22 History minocycline 100 mg capsule 100 mg PO Q12H 02/11/22 02/24/22 History pregabalin 300 mg capsule 300 mg PO BID 02/11/22 02/24/22 History vits no.126-ferrous fum 1 tab PO DAILY 02/11/22 02/24/22 History 28 mg iron-folic acid 800 mcg tablet (Classic ) trazodone 100 mg tablet 100 mg PO HS 02/11/22 02/24/22 History Allergies Allergy/AdvReac Type Severity Reaction Status Date / Time adhesive Allergy Severe Hives Verified 02/20/22 09:17 bee venom protein (honey bee) Allergy Severe Anaphylaxis Verified 02/20/22 09:17 Exam Narrative: Exam Narrative: General: No acute distress. Awake alert oriented x3. HEENT: Normocephalic atraumatic, pupils equally round and reactive to light and accommodation. Oropharynx clear. Mucous membranes are moist. No cervical lymphadenopathy, thyromegaly or carotid bruits. No JVD. Cardiovascular: Regular rate and rhythm. No murmurs, gallops, or rubs. Chest: No increased work of breathing. Clear to auscultation bilaterally. No crackles or wheezes. Abdomen: Bowel sounds present. Soft, nondistended, nontender. No hepatosplenomegaly or masses. Extremities: Anterior left hip bandage is clean, dry, and intact. edema, no cyanosis or clubbing. Skin: No jaundice, no pallor, no rashes. Const: Vital Signs, click to edit/add: Vital Signs - 24 hr 02/24/22 10:41 02/24/22 12:36 02/24/22 12:44 Temperature 97.6 F 97.8 F Pulse Rate 73 70 68 Pulse Rate [Pulse Oximeter] Respiratory Rate 16 16 16 Blood Pressure 121/74 107/69 115/75 Blood Pressure [Ri ght Arm] Pulse Oximetry 99 98 100 02/24/22 12:59 02/24/22 13:00 02/24/22 13:01 Temperature 97.8 F Pulse Rate 64 68 63 Pulse Rate [Pulse Oximeter] Respiratory Rate 16 Blood Pressure 131/84 Blood Pressure [Ri ght Arm] Pulse Oximetry 98 100 97 02/24/22 13:02 02/24/22 13:03 02/24/22 13:05 Temperature Pulse Rate 64 66 65 Pulse Rate [Pulse Oximeter] Respiratory Rate Blood Pressure Blood Pressure [Ri ght Arm] Pulse Oximetry 99 97 97 02/24/22 13:18 02/24/22 13:21 02/24/22 13:23 Temperature Pulse Rate 67 66 66 Pulse Rate [Pulse Oximeter] Respiratory Rate Blood Pressure Blood Pressure [Ri ght Arm] Pulse Oximetry 97 97 97 02/24/22 13:32 02/24/22 13:42 02/24/22 13:46 Temperature Pulse Rate 66 70 65 Pulse Rate [Pulse Oximeter] Respiratory Rate Blood Pressure 114/66 92/63 Blood Pressure [Ri ght Arm] Pulse Oximetry 100 99 100 02/24/22 13:47 02/24/22 13:48 02/24/22 13:49 Temperature Pulse Rate 65 65 63 Pulse Rate [Pulse Oximeter] Respiratory Rate Blood Pressure Blood Pressure [Ri ght Arm] Pulse Oximetry 100 100 99 02/24/22 16:30 02/24/22 16:35 02/24/22 16:40 Temperature 97.2 F L Pulse Rate 74 74 79 Pulse Rate [Pulse Oximeter] Respiratory Rate 16 16 16 Blood Pressure 103/73 105/64 110/73 Blood Pressure [Ri ght Arm] Pulse Oximetry 97 99 98 02/24/22 16:45 02/24/22 16:50 02/24/22 16:55 Temperature Pulse Rate 78 74 75 Pulse Rate [Pulse Oximeter] Respiratory Rate 16 16 16 Blood Pressure 118/58 L 121/82 119/79 Blood Pressure [Ri ght Arm] Pulse Oximetry 99 97 99 02/24/22 17:00 02/24/22 17:10 02/24/22 17:15 Temperature 97.2 F L 95.7 F L 95.7 F L Pulse Rate 75 Pulse Rate [Pulse Oximeter] 75 75 Respiratory Rate 16 16 16 Blood Pressure 126/81 Blood Pressure [Ri ght Arm] 113/95 H 119/74 Pulse Oximetry 98 100 100 02/24/22 18:20 Temperature 96.9 F L Pulse Rate Pulse Rate [Pulse Oximeter] Respiratory Rate Blood Pressure Blood Pressure [Ri ght Arm] Pulse Oximetry Assessment and Plan Assessment and plan (1) Dislocation of hip, left, closed: Problem comment: Two separate anterior-lateral dislocations of the left hip (02/15/22, 02/19/22) - currently reduced Status: Acute Assessment and Plan: She is now postop day 0 status post left total hip revision arthroplasty including femoral and acetabular components. She is doing well. Pain is under control. Cares per Ortho. (2) S/P total left hip arthroplasty: Problem comment: One week postoperative left total hip arthroplasty-anterior approach for femoral head fracture (DOS 02/10/2022) Status: Acute (3) Hypothyroidism: Status: Chronic Assessment and Plan: Continue usual home medications. 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 She had a DVT in my right hand 25 years ago after an IV for a surgery. She has had several surgeries in life with no bleeding issues. Her mother has the same factor 2 abnormality and has never had bleeding issues, but has had multiple PEs and DVTs. She is very vague and unclear about the details. [facility], but those go back only to 2017 and a note from 2018 mentions these similar vague details. 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 PT/PTT were checked prior to surgery 02/10/2022 and were both within normal limits. Status: Chronic Assessment and Plan: VTE prophylaxis with Xarelto for 5 days then transition to aspirin twice a day. Plan I cannot find the reason why she is on cephalexin 4 times a day. She is getting Ancef perioperatively. Cephalexin can be readdressed when the Ancef has been completed.
[2022-02-24] MEDS: CEFAZOLIN 2 GM in 0.9 % SODIUM CHLORIDE Mini-bag 100 ML IVPB (20:44)
[2022-02-24] MEDS: SENNOSIDES 1 TAB TABLET 2 TAB PO (20:54)
[2022-02-24] MEDS: TRAZODONE HCL 50 MG TABLET 100 MG PO (23:42)
[2022-02-24] MEDS: hydrOXYzine pamoate 25 MG CAPSULE PO (23:43)
[2022-02-25 00:20] VITALS: BP 106/63; PULSE 75; RESP 16; TEMP 36.4; O2SAT 97
--- NOTE | 2022-02-25 02:40 | PC.NURSE ---
[id number]: Patient pleasant and cooperative. Denies N/V. Tolerating regular diet. A1, rosemary, [place] to [facility] [place] tolerated well. Dressing to L.hip C/D/I. CMS intact. Pain controlled with PRN Oxycodone.
[2022-02-25] MEDS: OXYCODONE 5 MG TABLET PO ×3 (03:19→12:28)
[2022-02-25] MEDS: SODIUM CHLORIDE 0.9 % (FLUSH) 10 ML SYRINGE IVF ×3 (03:20→11:25)
[2022-02-25 03:34] VITALS: BP 126/70; PULSE 69; RESP 16; TEMP 36.2; O2SAT 99
[2022-02-25] MEDS: CEFAZOLIN 2 GM in 0.9 % SODIUM CHLORIDE Mini-bag 100 ML IVPB ×2 (04:39→11:30)
--- NOTE | 2022-02-25 04:59 | PC.NURSE ---
VSS RA. Pain 5/10 gave Oxycodone 10mg, Vistaril 25mg and arron Tylenol. Surgical dressing CDI. Tolerating diet saline locked 0330. Denies passing flatus. Up to BR w/A1 ind w/cares and occasional leg buckling. Leg is numb to upper calf.
[2022-02-25] MEDS: ACETAMINOPHEN 500 MG TABLET 1000 MG PO ×2 (05:33→11:28)
[2022-02-25 08:00] VITALS: BP 118/79; PULSE 79; RESP 18; TEMP 36.9; O2SAT 100
[2022-02-25] MEDS: CELECOXIB 200 MG CAPSULE PO (08:44)
[2022-02-25] MEDS: COENZYME Q10 100 MG CAPSULE PO (08:45)
[2022-02-25] MEDS: SENNOSIDES 1 TAB TABLET 2 TAB PO (08:45)
[2022-02-25] MEDS: LACTOBACILLUS ACIDOPHILUS 1 TABLET 1 TAB PO (08:45)
[2022-02-25] MEDS: ASCORBIC ACID 500 MG TABLET PO (08:46)
[2022-02-25] MEDS: PREGABALIN 100 MG CAPSULE 300 MG PO (08:47)
[2022-02-25] MEDS: MULTIVITAMIN/MINERALS 1 TABLET 1 TAB PO (08:47)
[2022-02-25] MEDS: CITALOPRAM HYDROBROMIDE 20 MG TABLET 40 MG PO (08:47)
[2022-02-25] MEDS: RIVAROXABAN 10 MG TABLET PO (08:48)
[2022-02-25] MEDS: buPROPion XL 150 MG TABLET 300 MG PO (08:48)
[2022-02-25] MEDS: LEVOTHYROXINE 50 MCG TABLET PO (08:48)
[2022-02-25] MEDS: FUROSEMIDE 40 MG TABLET PO (08:49)
[2022-02-25 09:26] LABS: Basophils Percent Auto 0.3 % (0.0-3.0); Eosinophils Percent Auto 0.9 % (0.0-7.0); Hematocrit 34.7 % (33.0-51.0); Hemoglobin* 11.8 gm/dL (12.0-16.0); Immature Granulocytes Abs Auto 0.03 K/uL (0.00-0.30); Lymphocytes Percent Auto 10.2 % (20-44); Mean Corpuscular HGB Conc 34 gm/dL (32-36); Mean Corpuscular Hemoglobin 32 pg (26-34); Mean Corpuscular Volume 94 fL (80-100); Neutrophils Percent Auto 85.4 % (42.0-72.0); Platelet Count* 315 K/uL (140-440); RDW Coefficient of Variation % 13.4 % (11.5-15.5); Red Blood Count 3.68 m/uL (4.00-5.20); White Blood Count* 13.78 K/uL (4.50-11.00)
[2022-02-25 09:29] LABS: Slide Review Reflex No
[2022-02-25 09:43] LABS: Sodium* 137 mmol/L (135-149)
[2022-02-25 09:44] LABS: Potassium* 4.2 mmol/L (3.6-5.1)
[2022-02-25 09:47] LABS: Blood Urea Nitrogen* 18 mg/dL (7-30); Creatinine* 0.9 mg/dL (0.5-1.5); Est. Creatinine Clearance* 69.57; Estimated Glomerular Filt Rate 74.57
[2022-02-25 11:14] LABS: Clue Cells No Clue Cells Seen (None Seen); Trichomonas No Trichomonas Seen (None Seen); Yeast No Yeast Seen (None Seen)
--- NOTE | 2022-02-25 11:41 | P.DS_ITS ---
DS: Providers Provider Date Seen: 02/25/22 Primary care physician: Jack Zavala MD Consults: 02/24/22 15:57 Consult to Occupational Therapy [CONS] Routine Comment: Reason(s) for OT Consult:: Evaluate and Treat Any Restrictions?:: No Restrictions Consult to Physical Therapy [CONS] Routine Comment: Ambulate in the billy today Reason(s) for PT Consult:: Evaluate and Treat Any Restrictions?:: No Restrictions Comment: Nursing Activity Consult to Physician [CONS] Routine Comment: Consulting Provider: Hospitalists Has provider been notified: No Consult to [facility] [CONS] Routine Comment: Reason for Consult:: Discharge Planning Needs 02/24/22 17:36 Consult to Physician [CONS] Routine Comment: Consulting Provider: Alison Nuno Has provider been notified: Yes Attending Physician on discharge: Justin Arroyo MD Date of Discharge: 02/25/22 DS: Diagnosis Discharge Diagnosis (1) S/P total left hip arthroplasty: Status: Acute Problem details: One week postoperative left total hip arthroplasty-anterior approach for femoral head fracture (DOS 02/10/2022). Recurrent dislocations postoperatively. Now revision hip arthroplasty to replace the cup. No operative complications. Doing well postoperatively. 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 She had a DVT in my right hand 25 years ago after an IV for a surgery. She has had several surgeries in life with no bleeding issues. Her mother has the same factor 2 abnormality and has never had bleeding issues, but has had multiple PEs and DVTs. She is very vague and unclear about the details. I have checked her records from [facility], but those go back only to 2017 and a note from 2018 mentions these similar vague details. 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 PT/PTT were checked prior to surgery 02/10/2022 and were both within normal limits. Recommend discharge on rivaroxaban 10 mg daily for 5 days followed by aspirin 81 mg b.i.d. DS: Summary Hospital Course Hospital Course: 56-year-old female readmitted to the hospital for after prior hip fracture surgery. She dislocated her hip prosthesis recurrent Ashley and is now undergone revision with replacement of the cup. There were no operative complications. Postoperatively she has done well. Status at Discharge Functional status at discharge: uses cane/walker Overall status at discharge: patient is back to baseline Time Spent with Patient Time attestation: Total time spent providing and/or coordinating discharge services: Time spent: Less than 30 minutes Exam Narrative: Exam Narrative: She is alert and appears in no distress. She is oriented to her circumstances. Not anxious. Breathing is unlabored. Examination of her lower extremities shows no significant swelling bruising or redness. No significant drainage on the dressing. She has intact strength and motion in both lower extremities. She describes diminished sensation/numbness over her anterior knee and thigh on the left which she reports pre dated her current surgery, possibly related to her previous surgery? Intact pedal pulses. No edema. Const: Vital Signs, click to edit/add: Vital Signs - 24 hr 02/24/22 12:36 02/24/22 12:44 02/24/22 12:59 Temperature 97.8 F Pulse Rate 70 68 64 Pulse Rate [Pulse Oximeter] Respiratory Rate 16 16 Blood Pressure 107/69 115/75 Blood Pressure [Ri ght Arm] Pulse Oximetry 98 100 98 02/24/22 13:00 02/24/22 13:01 02/24/22 13:02 Temperature 97.8 F Pulse Rate 68 63 64 Pulse Rate [Pulse Oximeter] Respiratory Rate 16 Blood Pressure 131/84 Blood Pressure [Ri ght Arm] Pulse Oximetry 100 97 99 02/24/22 13:03 02/24/22 13:05 02/24/22 13:18 Temperature Pulse Rate 66 65 67 Pulse Rate [Pulse Oximeter] Respiratory Rate Blood Pressure Blood Pressure [Ri ght Arm] Pulse Oximetry 97 97 97 02/24/22 13:21 02/24/22 13:23 02/24/22 13:32 Temperature Pulse Rate 66 66 66 Pulse Rate [Pulse Oximeter] Respiratory Rate Blood Pressure 114/66 Blood Pressure [Ri ght Arm] Pulse Oximetry 97 97 100 02/24/22 13:42 02/24/22 13:46 02/24/22 13:47 Temperature Pulse Rate 70 65 65 Pulse Rate [Pulse Oximeter] Respiratory Rate Blood Pressure 92/63 Blood Pressure [Ri ght Arm] Pulse Oximetry 99 100 100 02/24/22 13:48 02/24/22 13:49 02/24/22 16:30 Temperature 97.2 F L Pulse Rate 65 63 74 Pulse Rate [Pulse Oximeter] Respiratory Rate 16 Blood Pressure 103/73 Blood Pressure [Ri ght Arm] Pulse Oximetry 100 99 97 02/24/22 16:35 02/24/22 16:40 02/24/22 16:45 Temperature Pulse Rate 74 79 78 Pulse Rate [Pulse Oximeter] Respiratory Rate 16 16 16 Blood Pressure 105/64 110/73 118/58 L Blood Pressure [Ri ght Arm] Pulse Oximetry 99 98 99 02/24/22 16:50 02/24/22 16:55 02/24/22 17:00 Temperature 97.2 F L Pulse Rate 74 75 75 Pulse Rate [Pulse Oximeter] Respiratory Rate 16 16 16 Blood Pressure 121/82 119/79 126/81 Blood Pressure [Ri ght Arm] Pulse Oximetry 97 99 98 02/24/22 17:10 02/24/22 17:15 02/24/22 17:30 Temperature 95.7 F L 95.7 F L 96.9 F L Pulse Rate 75 Pulse Rate [Pulse Oximeter] 75 75 65 Respiratory Rate 16 16 16 Blood Pressure Blood Pressure [Ri ght Arm] 113/95 H 119/74 129/73 Pulse Oximetry 100 100 100 02/24/22 17:45 02/24/22 18:00 02/24/22 18:20 Temperature 96.9 F L 96.9 F L 96.9 F L Pulse Rate Pulse Rate [Pulse Oximeter] 67 64 Respiratory Rate 16 16 Blood Pressure Blood Pressure [Ri ght Arm] 129/73 117/85 Pulse Oximetry 100 100 02/24/22 18:30 02/24/22 19:00 02/24/22 20:00 Temperature 96.9 F L 96.9 F L 97.3 F L Pulse Rate Pulse Rate [Pulse Oximeter] 80 81 72 Respiratory Rate 16 16 18 Blood Pressure Blood Pressure [Ri ght Arm] 113/70 97/76 121/78 Pulse Oximetry 100 100 99 02/24/22 21:00 02/24/22 22:00 02/24/22 23:00 Temperature 97.6 F 98.1 F 98.1 F Pulse Rate Pulse Rate [Pulse Oximeter] 73 81 83 Respiratory Rate 18 16 16 Blood Pressure Blood Pressure [Ri ght Arm] 121/73 134/74 116/71 Pulse Oximetry 97 98 97 02/25/22 00:20 02/25/22 03:34 02/25/22 08:00 Temperature 97.6 F 97.2 F L 98.5 F Pulse Rate 75 69 79 Pulse Rate [Pulse Oximeter] Respiratory Rate 16 16 18 Blood Pressure 106/63 126/70 118/79 Blood Pressure [Ri ght Arm] Pulse Oximetry 97 99 100 Documenting provider has reviewed patient's vital signs: yes DS: Data Data Completed and Pending Labs on day of discharge: Labs from last 24 hours 02/25/22 02/25/22 02/25/22 10:07 09:19 09:19 WBC 13.78 H RBC 3.68 L Hgb 11.8 L Hct 34.7 MCV 94 MCH 32 MCHC 34 RDW Coeff of Corazon 13.4 Plt Count 315 Neut % (Auto) 85.4 H Lymph % (Auto) 10.2 L [place] % (Auto) 3.0 Eos % (Auto) 0.9 Baso % (Auto) 0.3 Neut # (Auto) 11.80 H Lymph # (Auto) 1.40 [place] # (Auto) 0.40 Eos # (Auto) 0.10 Baso # (Auto) 0.00 Abs Immat Gran (auto) 0.03 Sodium 137 Potassium 4.2 BUN 18 Creatinine 0.9 Estimated Creat Clear 69.57 Vaginal Trichomonas No Trichomonas Seen Vaginal Yeast No Yeast Seen Vaginal Clue Cells No Clue Cells Seen Blood Type Antibody Screen 02/24/22 14:02 WBC RBC Hgb Hct MCV MCH MCHC RDW Coeff of Corazon Plt Count Neut % (Auto) Lymph % (Auto) [place] % (Auto) Eos % (Auto) Baso % (Auto) Neut # (Auto) Lymph # (Auto) [place] # (Auto) Eos # (Auto) Baso # (Auto) Abs Immat Gran (auto) Sodium Potassium BUN Creatinine Estimated Creat Clear Vaginal Trichomonas Vaginal Yeast Vaginal Clue Cells Blood Type A Positive Antibody Screen NEGATIVE Discharge Plan Discharge Disposition: Home, Self-Care Discharging Surgeon: Justin Arroyo Follow-Up Appointment: Per Ortho Prescriptions: New oxycodone 5 mg tablet 2.5 - 5 mg PO .Q4-6 MDD 6 PRN (Reason: pain) Qty: 30 0RF Rx Instructions: Take as needed for pain; 2.5 mg mild pain, 5 mg moderate-severe pain rivaroxaban 10 mg tablet 10 mg PO DAILY Qty: 4 0RF Rx Instructions: Medication for deep vein clot prevention post surgery. Complete this medication before starting Aspirin. aspirin 81 mg capsule 81 mg PO DAILY Qty: 25 0RF Rx Instructions: For deep vein clot prevention post surgery. Start this medication after completing Rivaroxaban. Take twice daily. Continued dextroamphetamine-amphetamine [Adderall XR] 15 mg capsule,extended release 24hr 15 mg PO DAILY 0RF ascorbic acid (vitamin C) 500 mg tablet 500 mg PO DAILY 0RF bisacodyl 5 mg tablet,delayed release (DR/EC) 10 mg PO HS PRN0RF bupropion HCl 300 mg tablet extended release 24 hr 300 mg PO DAILY 0RF cholecalciferol (vitamin D3) 25 mcg (1,000 unit) capsule 25 mcg PO DAILY 0RF citalopram 40 mg tablet 40 mg PO DAILY 0RF coenzyme Q10 50 mg capsule 50 mg PO DAILY 0RF furosemide 40 mg tablet 40 mg PO DAILY 0RF minocycline 100 mg capsule 100 mg PO Q12H 0RF levothyroxine 50 mcg tablet 50 mcg PO DAILY 0RF lorazepam 1 mg tablet 1 mg PO TID PRN0RF pregabalin 300 mg capsule 300 mg PO BID 0RF Classic 28 mg iron- 800 mcg tablet 1 tab PO DAILY 0RF trazodone 100 mg tablet 100 mg PO HS 0RF celecoxib 200 mg Capsule 200 mg PO BID Qty: 60 0RF sennosides-docusate sodium [Senna-S] 8.6-50 mg tablet 1 - 4 tab-cap PO BID Qty: 60 0RF Rx Instructions: Hold medication if experiencing loose stools. Lactobacillus acidophilus 1 billion cell tablet 1,000 mmu cells PO BID Qty: 60 1RF Rx Instructions: May substitute with a different pro-biotic, but must follow label directions and take for a minimum of 1 month. oxycodone 5 mg tablet 2.5 - 10 mg PO Q4-6H PRN (Reason: postop pain) Qty: 25 0RF Discontinued enoxaparin [Lovenox] 30 mg/0.3 mL syringe 30 mg subcut QDAY Qty: 1.2 0RF Rx Instructions: Stop aspirin; take for DVT protection post operative. oxycodone 5 mg Tablet 2.5 - 10 mg PO Q2H PRN (Reason: Pain) Qty: 30 0RF aspirin 81 mg capsule 81 mg PO BID Qty: 60 2RF Rx Instructions: start on 02/17/22 for one month cephalexin 500 mg capsule 500 mg PO QID Qty: 40 0RF Activity Level: Activity as Tolerated, Weight Bearing as Tolerated and Use Walker Discharge Diet: Regular Patient Instructions: Surgical Site Infections (DC) Follow-up: Justin Arroyo MD [Staff Physician] - 03/06/22 10:50 am ([facility] in [place] with Eldon Weiner Schedule surgeon follow up appointment at this visit) Jack Zavala MD [Primary Care Provider] - (Patient is to call and schedule as needed.) Discharge Orders: Discharge Order (Routine); Ordered 02/25/22 Ordered By: Eldon Lopez
[2022-02-25 11:52] VITALS: BP 121/60; PULSE 77; RESP 18; TEMP 36.4; O2SAT 99
--- NOTE | 2022-02-25 14:02 | PC.NURSE ---
Pt post op day #1. Eval by Eldon potts PA, PT & OT this am. Please see Emar for scheduled medications provided. Pt rating her pain 3-5 out of 10 depending on activity. Good appetite, adequate I & O. SBA of one to BR with walker and gait belt. Pt c/o vaginal discomfort itching & irritated, vaginal swab collected per Dr. Hall's order and specimen sent to lab for JAMIE testing which was negative. Third dose of IV Ancef infused. Pt received d/c information and packet from Cherry TAYLOR, verbalized understanding of instructions. Discharged via w/c to own home with spouse Ronnie @ [phone].
--- NOTE | 2022-02-25 17:11 | PM.ORPN ---
Subjective Subjective Date Seen: 02/25/22 Principal diagnosis: S/P day 1 left total hip arthroplasty revision poly, ceramic head exchange Interval history: Patient reports doing well. No acute events over night. Pain managed with scheduled /PRN medications and ice. DVT prophylaxis rivaroxaban, bilateral knee high Sher stockings, and SCDs.. fevers, chills, aches, N/V, CP, SOB/VASQUEZ, tachycardia, or lightheadedness. She is complaining of some numbness along the left thigh which is new; she reports post primary left total hip arthroplasty she had some numbness along the lateral thigh. Ortho Exam Narrative Exam Narrative: -Patient appears comfortable in that; no apparent acute distress -Alert and oriented times 3 -Operative hip swollen; soft tissues supple; no obvious erythema. Ecchymosis minimal. Warmth appropriate -Surgical dressing clean, dry, intact; no obvious drainage, no erythematous streaking peripheral to the bandage -Bilateral calves soft and supple; no significant swelling, edema, tenderness, erythema, discoloration, warmth, or palpable cords -numbness along the anterior, anteromedial, and lateral thigh; no numbness below the knee involving the foot, consistent with anterior cutaneous branch of the femoral nerve. Mild numbness about the lateral femoral cutaneous nerve distribution -2+ DP/PT pulses, intact myotomes distally with 5/5 strength dorsally, plantar flexion, knee flexion/extension; weak straight leg raise which is expected postop. Const Vital Signs, click to edit/add: Vital Signs - 24 hr 02/24/22 17:15 02/24/22 17:30 02/24/22 17:45 Temperature 95.7 F L 96.9 F L 96.9 F L Pulse Rate Pulse Rate [Pulse Oximeter] 75 65 67 Respiratory Rate 16 16 16 Blood Pressure Blood Pressure [Right Arm] 119/74 129/73 129/73 Pulse Oximetry 100 100 100 02/24/22 18:00 02/24/22 18:20 02/24/22 18:30 Temperature 96.9 F L 96.9 F L 96.9 F L Pulse Rate Pulse Rate [Pulse Oximeter] 64 80 Respiratory Rate 16 16 Blood Pressure Blood Pressure [Right Arm] 117/85 113/70 Pulse Oximetry 100 100 02/24/22 19:00 02/24/22 20:00 02/24/22 21:00 Temperature 96.9 F L 97.3 F L 97.6 F Pulse Rate Pulse Rate [Pulse Oximeter] 81 72 73 Respiratory Rate 16 18 18 Blood Pressure Blood Pressure [Right Arm] 97/76 121/78 121/73 Pulse Oximetry 100 99 97 02/24/22 22:00 02/24/22 23:00 02/25/22 00:20 Temperature 98.1 F 98.1 F 97.6 F Pulse Rate 75 Pulse Rate [Pulse Oximeter] 81 83 Respiratory Rate 16 16 16 Blood Pressure 106/63 Blood Pressure [Right Arm] 134/74 116/71 Pulse Oximetry 98 97 97 02/25/22 03:34 02/25/22 08:00 02/25/22 11:52 Temperature 97.2 F L 98.5 F 97.6 F Pulse Rate 69 79 77 Pulse Rate [Pulse Oximeter] Respiratory Rate 16 18 18 Blood Pressure 126/70 118/79 121/60 Blood Pressure [Right Arm] Pulse Oximetry 99 100 99 Assessment and Plan Assessment and plan (1) S/P total left hip arthroplasty: Problem details: One week postoperative left total hip arthroplasty-anterior approach for femoral head fracture (DOS 02/10/2022). Recurrent dislocations postoperatively. Now revision hip arthroplasty to replace the poly liner and ceramic head. No operative complications. Doing well postoperatively. Status: Acute Assessment and Plan: Anterior cutaneous branches of the femoral nerve neurapraxia and lateral femoral cutaneous nerve neurapraxia postoperative. Likely related to surgical irritation to these nerves, as well as irritation from 2 separate dislocation events anteriorly over the past week. No myotomes impacted. Will continue to follow in the outpatient setting. 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 She had a DVT in my right hand 25 years ago after an IV for a surgery. She has had several surgeries in life with no bleeding issues. Her mother has the same factor 2 abnormality and has never had bleeding issues, but has had multiple PEs and DVTs. She is very vague and unclear about the details. I have checked her records from [facility], but those go back only to 2017 and a note from 2018 mentions these similar vague details. 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 PT/PTT were checked prior to surgery 02/10/2022 and were both within normal limits. Recommend discharge on rivaroxaban 10 mg daily for 5 days followed by aspirin 81 mg b.i.d. Status: Chronic (3) Acute postoperative anemia due to expected blood loss: Status: Acute Assessment and Plan: Surgically related; asymptomatic with hemoglobin at 11.8 Plan - Complete 23 hour perioperative antibiotics. - PT/OT consult for education and assistance. - Social work consult for discharge planning - Prescribed analgesics as needed - DVT prophylaxis: Rivaroxaban, bilateral knee high Sher Hose stockings and SCDs - Anticipation is for discharge to home with spouse today if the patient remains medically stable, pain is controlled, and they are safe with mobilization. Progress Note: Quality Stroke Rehab Services Assessed: Physical therapy assessment
--- NOTE | 2022-02-25 17:23 | P.DS_ITS ---
DS: Providers Provider Date Seen: 02/25/22 Date of admission: 02/24/22 as med surg recovery Primary care physician: Jack Zavala MD Consults: 02/24/22 15:57 Consult to Occupational Therapy [CONS] Routine Comment: Reason(s) for OT Consult:: Evaluate and Treat Any Restrictions?:: No Restrictions Consult to Physical Therapy [CONS] Routine Comment: Ambulate in the billy today Reason(s) for PT Consult:: Evaluate and Treat Any Restrictions?:: No Restrictions Comment: Nursing Activity Consult to Physician [CONS] Routine Comment: Consulting Provider: Hospitalists Has provider been notified: No Consult to [employer] [CONS] Routine Comment: Reason for Consult:: Discharge Planning Needs 02/24/22 17:36 Consult to Physician [CONS] Routine Comment: Consulting Provider: Alison Nuno Has provider been notified: Yes Attending Physician on discharge: Justin Arroyo MD Date of Discharge: 02/25/22 DS: Diagnosis Discharge Diagnosis (1) S/P total left hip arthroplasty: Status: Acute Problem details: One week postoperative left total hip arthroplasty-anterior approach for femoral head fracture (DOS 02/10/2022). Recurrent dislocations postoperatively. Now revision hip arthroplasty to replace the poly liner and ceramic head. No operative complications. Doing well postoperatively. 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 She had a DVT in my right hand 25 years ago after an IV for a surgery. She has had several surgeries in life with no bleeding issues. Her mother has the same factor 2 abnormality and has never had bleeding issues, but has had multiple PEs and DVTs. She is very vague and unclear about the details. I have checked her records from [facility], but those go back only to 2017 and a note from 2018 mentions these similar vague details. 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 PT/PTT were checked prior to surgery 02/10/2022 and were both within normal limits. Recommend discharge on rivaroxaban 10 mg daily for 5 days followed by aspirin 81 mg b.i.d. (3) Acute postoperative anemia due to expected blood loss: Status: Acute DS: Summary Hospital Course Hospital Course: 56-year-old female readmitted to the hospital for after prior hip fracture surgery. She dislocated her hip prosthesis twice and is now undergone revision with replacement of the polyethylene liner and ceramic head. There were no operative complications. Postoperatively she has done well. Status at Discharge Functional status at discharge: uses cane/walker Overall status at discharge: patient is progressing back to baseline Time Spent with Patient Time attestation: Total time spent providing and/or coordinating discharge services: Time spent: Greater than 30 minutes Exam Const: Vital Signs, click to edit/add: Vital Signs - 24 hr 02/24/22 17:30 02/24/22 17:45 02/24/22 18:00 Temperature 96.9 F L 96.9 F L 96.9 F L Pulse Rate Pulse Rate [Pulse Oximeter] 65 67 64 Respiratory Rate 16 16 16 Blood Pressure Blood Pressure [Ri ght Arm] 129/73 129/73 117/85 Pulse Oximetry 100 100 100 02/24/22 18:20 02/24/22 18:30 02/24/22 19:00 Temperature 96.9 F L 96.9 F L 96.9 F L Pulse Rate Pulse Rate [Pulse Oximeter] 80 81 Respiratory Rate 16 16 Blood Pressure Blood Pressure [Ri ght Arm] 113/70 97/76 Pulse Oximetry 100 100 02/24/22 20:00 02/24/22 21:00 02/24/22 22:00 Temperature 97.3 F L 97.6 F 98.1 F Pulse Rate Pulse Rate [Pulse Oximeter] 72 73 81 Respiratory Rate 18 18 16 Blood Pressure Blood Pressure [Ri ght Arm] 121/78 121/73 134/74 Pulse Oximetry 99 97 98 02/24/22 23:00 02/25/22 00:20 02/25/22 03:34 Temperature 98.1 F 97.6 F 97.2 F L Pulse Rate 75 69 Pulse Rate [Pulse Oximeter] 83 Respiratory Rate 16 16 16 Blood Pressure 106/63 126/70 Blood Pressure [Ri ght Arm] 116/71 Pulse Oximetry 97 97 99 02/25/22 08:00 02/25/22 11:52 Temperature 98.5 F 97.6 F Pulse Rate 79 77 Pulse Rate [Pulse Oximeter] Respiratory Rate 18 18 Blood Pressure 118/79 121/60 Blood Pressure [Ri ght Arm] Pulse Oximetry 100 99 DS: Data Data Completed and Pending Labs on day of discharge: Labs from last 24 hours 02/25/22 02/25/22 02/25/22 10:07 09:19 09:19 WBC 13.78 H RBC 3.68 L Hgb 11.8 L Hct 34.7 MCV 94 MCH 32 MCHC 34 RDW Coeff of Corazon 13.4 Plt Count 315 Neut % (Auto) 85.4 H Lymph % (Auto) 10.2 L [place] % (Auto) 3.0 Eos % (Auto) 0.9 Baso % (Auto) 0.3 Neut # (Auto) 11.80 H Lymph # (Auto) 1.40 [place] # (Auto) 0.40 Eos # (Auto) 0.10 Baso # (Auto) 0.00 Abs Immat Gran (auto) 0.03 Sodium 137 Potassium 4.2 BUN 18 Creatinine 0.9 Estimated Creat Clear 69.57 Vaginal Trichomonas No Trichomonas Seen Vaginal Yeast No Yeast Seen Vaginal Clue Cells No Clue Cells Seen Discharge Plan Discharge Disposition: Home, Self-Care Discharging Surgeon: Justin Arroyo Follow-Up Appointment: Per Ortho Prescriptions: New oxycodone 5 mg tablet 2.5 - 5 mg PO .Q4-6 MDD 6 PRN (Reason: pain) Qty: 30 0RF Rx Instructions: Take as needed for pain; 2.5 mg mild pain, 5 mg moderate-severe pain rivaroxaban 10 mg tablet 10 mg PO DAILY Qty: 4 0RF Rx Instructions: Medication for deep vein clot prevention post surgery. Complete this medication before starting Aspirin. aspirin 81 mg capsule 81 mg PO DAILY Qty: 25 0RF Rx Instructions: For deep vein clot prevention post surgery. Start this medication after completing Rivaroxaban. Take twice daily. Continued dextroamphetamine-amphetamine [Adderall XR] 15 mg capsule,extended release 24hr 15 mg PO DAILY 0RF ascorbic acid (vitamin C) 500 mg tablet 500 mg PO DAILY 0RF bisacodyl 5 mg tablet,delayed release (DR/EC) 10 mg PO HS PRN0RF bupropion HCl 300 mg tablet extended release 24 hr 300 mg PO DAILY 0RF cholecalciferol (vitamin D3) 25 mcg (1,000 unit) capsule 25 mcg PO DAILY 0RF citalopram 40 mg tablet 40 mg PO DAILY 0RF coenzyme Q10 50 mg capsule 50 mg PO DAILY 0RF furosemide 40 mg tablet 40 mg PO DAILY 0RF minocycline 100 mg capsule 100 mg PO Q12H 0RF levothyroxine 50 mcg tablet 50 mcg PO DAILY 0RF lorazepam 1 mg tablet 1 mg PO TID PRN0RF pregabalin 300 mg capsule 300 mg PO BID 0RF Classic 28 mg iron- 800 mcg tablet 1 tab PO DAILY 0RF trazodone 100 mg tablet 100 mg PO HS 0RF celecoxib 200 mg Capsule 200 mg PO BID Qty: 60 0RF sennosides-docusate sodium [Senna-S] 8.6-50 mg tablet 1 - 4 tab-cap PO BID Qty: 60 0RF Rx Instructions: Hold medication if experiencing loose stools. Lactobacillus acidophilus 1 billion cell tablet 1,000 mmu cells PO BID Qty: 60 1RF Rx Instructions: May substitute with a different pro-biotic, but must follow label directions and take for a minimum of 1 month. oxycodone 5 mg tablet 2.5 - 10 mg PO Q4-6H PRN (Reason: postop pain) Qty: 25 0RF Discontinued enoxaparin [Lovenox] 30 mg/0.3 mL syringe 30 mg subcut QDAY Qty: 1.2 0RF Rx Instructions: Stop aspirin; take for DVT protection post operative. oxycodone 5 mg Tablet 2.5 - 10 mg PO Q2H PRN (Reason: Pain) Qty: 30 0RF aspirin 81 mg capsule 81 mg PO BID Qty: 60 2RF Rx Instructions: start on 02/17/22 for one month cephalexin 500 mg capsule 500 mg PO QID Qty: 40 0RF Activity Level: Activity as Tolerated, Weight Bearing as Tolerated and Use Walker Discharge Diet: Regular Patient Instructions: Aspirin (By mouth), Oxycodone, Rapid Release (By mouth), Rivaroxaban (By mouth), Surgical Site Infections (DC), Total Hip Replacement (DC) Follow-up: Justin Arroyo MD [Staff Physician] - 03/06/22 10:50 am ([facility] in [place] with Eldon Weiner Schedule surgeon follow up appointment at this visit) Jack Zavala MD [Primary Care Provider] - (Patient is to call and schedule as needed.) Discharge Orders: Discharge Order (Routine); Ordered 02/25/22 Ordered By: Eldon Lopez
--- NOTE | 2022-02-28 15:55 | SUR.PREOP ---
preoperative chart closed by this nurse. documentation completed by Amada Box. Time entry based on into OR time.
== END 2022-02-25 13:55 | disposition home or self-care (01) ==
LOC: OR 10:09 → MEDSURG 17:37
PROVIDERS: Family Medicine; Physician Assistant Surgical; PCP Family Medicine; Visit Provider Orthopaedic Surgery Sports Medicine
PROC: (CPT 27134; principal; 2022-02-24 12:30)
DX: S73.035A Other anterior dislocation of left hip, initial encounter (principal); Z96.642 Presence of left artificial hip joint; M25.352 Other instability, left hip; D68.51 Activated protein C resistance; N18.2 Chronic kidney disease, stage 2 (mild); E03.9 Hypothyroidism, unspecified
CPT/HCPCS: 27134; 1214; 36415; 73501; 73502; 82542; 82565; 84132; 84295; 84520; 85025; 86850; 86900; 86901; 87210; 97110; 97116; 97161; 97165; 97530; 97535; A9153; A9270; C1776; J0330; J0690; J1100; J1170; J2250; J2405; J2704; J2795; J3010; J7120

== ENCOUNTER 2022-04-14 10:57 | Outpatient (CLI) | payer BC, SELFPAY ==
[2022-04-14 15:16] LABS: Chloride* 103 mmol/L (96-114)
[2022-04-14 15:17] LABS: Basophils Absolute Auto 0.06 K/uL (0.00-0.30); Eosinophils Absolute Auto 0.21 K/uL (0.00-0.50); Eosinophils Percent Auto 3.7 % (0.0-7.0); Hematocrit 40.9 % (33.0-51.0); Immature Granulocytes Abs Auto 0.01 K/uL (0.00-0.30); Lymphocytes Absolute Auto 1.59 K/uL (0.90-2.90); Lymphocytes Percent Auto 27.7 % (20-44); Mean Corpuscular HGB Conc 34 gm/dL (32-36); Mean Corpuscular Hemoglobin 32 pg (26-34); Mean Corpuscular Volume 92 fL (80-100); Monocytes Percent Auto 8.5 % (0.0-11.0); Neutrophils Absolute Auto 3.38 K/uL (1.7-7.0); Neutrophils Percent Auto 58.9 % (42.0-72.0); Platelet Count* 224 K/uL (140-440); Potassium* 3.9 mmol/L (3.6-5.1); RDW Coefficient of Variation % 12.9 % (11.5-15.5); Red Blood Count 4.44 m/uL (4.00-5.20); Sodium* 138 mmol/L (135-149); White Blood Count* 5.74 K/uL (4.50-11.00)
[2022-04-14 15:19] LABS: Estimated Glomerular Filt Rate 66 ml/min
[2022-04-14 15:20] LABS: Blood Urea Nitrogen* 23 mg/dL (7-30); Calcium* 8.6 mg/dL (8.4-10.6); Carbon Dioxide* 30 mmol/L (20-32); Glucose* 83 mg/dL (60-115)
[2022-04-14 15:29] LABS: Slide Review Reflex No
== END 2022-04-14 10:58 | disposition home or self-care (01) ==
PROVIDERS: PCP Family Medicine; Visit Provider Family Medicine
DX: D50.0 Iron deficiency anemia secondary to blood loss (chronic) (principal); E03.9 Hypothyroidism, unspecified
CPT/HCPCS: 80048; 84443; 85025

== ENCOUNTER 2022-05-06 10:00 | Outpatient (RCR) | payer BC, SELFPAY ==
--- NOTE | 2022-03-13 11:55 | PT.OPEX ---
PT [place] Outpatient Eval PT [facility] [place] Outpatient Eval Start: 03/13/22 11:28 Freq: Status: Active Protocol: Document 03/13/22 11:29 ELIZABETH (Rec: 03/13/22 11:48 ELIZABETH [id number]) E-Signed By Italia Augustine DPT Physical Therapy Outpatient Evaluation Insurance Information Insurance Name [employer] Medical Diagnosis s/p L MARLON 02/11/22 with revision 02/24/22 Treating Diagnosis s/p L MARLON 02/11/22 with revision 02/24/22 after multiple dislocations with L hip pain, impaired L hip ROM/ mobility, impaired L hip strength/stability, impaired gait Subjective Subjective Patient reports falling off the driveway embankment on February 11 with multiple injuries including L femoral head fx, L hand injury, and hitting her head. States she had L MARLON . She had 2 incidents after surgery that led to hip dislocations. As a result she had revision L MARLON on 02/24/22 . Incision is in the L anterior hip. Patient reports being cautious the last couple of weeks to avoid any further issues. She is getting around well with a 4ww , going for regular walks during the day. Also doing her L hip HEP 2-3x/day. Spouse is assisting as needed at home. She is negotiating stairs with step to pattern. Patient started doing her seated elliptical at home, up to 10-12 minutes now. She isn 't needing pain meds, using tylenol as needed, icing about 2x/day. Sleep is interrupted at times. Pain range 0-5/10. Date of Last Physician Visit 03/11/22 Date of Surgery (If applicable) 02/24/22 Preferred Name Alcira Precautions Treatment Precautions/Contraindications s/p L MARLON 02/11 with dislocation x 2, revision 02/24 Weight Bearing Status Weight Bear as Tolerated Therapy Limitations/Systems Review Not Limited Assessment Assessment/Impression Patient is a 56 year old female s/p fall on 02/09 with L femoral head fx. Patient then s/p L MARLON 02/11/22 with revision 02/24/22 after multiple dislocations with L hip pain, impaired L hip ROM/ mobility, impaired L hip strength/stability, impaired gait. She is ambulating with a 4ww, gait is limping/ antalgic. Patient demonstrates hypomobility in R hip/LE and states she has always been very flexible. Reviewed with patient to not be pushing into end ranges, being cautious and pacing herself during her recovery to build strength and stability. She expressed understanding. Patient L hip ROM is limited with tightness, stiffness, pain at this time. L hip weakness noted with transfers, gait, and exercises. Reviewed MARLON exercises and able to advance with exercises this session. Patient to continue with 4ww for ambulation. Pain range 0-5/10 . Patient would benefit from skilled PT for pain/sx management, improved L hip ROM , improved L hip mobility/ strength, improved gait/stair negotiation, and establishment of HEP. Plan of Care Rehabilitation Potential Good Physical Therapy Goals 1. Decrease L hip/thigh pain to less than/equal to 3/10 with daily activities and with the progression of PT activities over the next 4-6 weeks. 2. Improve L hip ROM over the next 4-6 weeks for improved gait mechanics, return to transfers with ease, and return to reciprocal stair negotiation. 3. Improve L hip/glut/LE/core strength over the next 8-10 weeks for return to transfers with ease, normal gait without AD, and extended standing/walking without flare up of pain. 4. Patient will be I with HEP within 10 weeks for progression toward above goals , ongoing self management of pain/sx, ongoing self improvements in L hip ROM/mobility/strength, and for return to daily and work activities, including standing /walking without flare up of pain. Coordination/Communication With Referral Source Treatment Plan/Direct Interventions Gait Training,Manual Therapy, Therapeutic Exercises Frequency/Duration 1x/week Patient Will Be Discharged From Therapy Completion of LTG(s),Skills Plateau,Independent w/HEP, Independently Progressing Evaluation Billing Untimed Code Treatment Minutes 20 Complexity Moderate
== END 2022-06-16 14:34 | disposition home or self-care (01) ==
PROVIDERS: PCP Family Medicine; Visit Provider Physician Assistant Surgical
DX: M25.552 Pain in left hip (principal); Z51.89 Encounter for other specified aftercare
CPT/HCPCS: 97110; 97162

== ENCOUNTER 2022-05-24 18:22 | Outpatient (CLI) | payer BC, SELFPAY ==
--- OUTSIDE RECORDS SUMMARY | 2022-07-17 03:33 | XMS_ITS | Clinical Summary ---
:1965 Author Organization [facility] [place] [address] Care Team Providers Name Role Phone Jack Zavala MD Primary Care Provider Allergies Active Allergy Reactions Severity Noted Date [...] mouth two times daily. traZODone (DESYREL) Take 1 and 90 Tablet 1 04/14/2022 Active 100 mg tablet one-half tablets (150 mg) by mouth at bedtime. dextroamphetamine-amp [...] mouth capsuleIndications: 2 times daily. Acne vulgaris linaCLOtide (Linzess) Take 1 Capsule (72 30 Capsule 1 07/04/20 22 Active 72 mcg cap capsule mcg) by mouth every morning. 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 Device Shelf Model / Identifier Expiration Serial / Lot Date Left, Size 3-4, 9mm Journey Ii Bcs Xl Pe A/P 48mm M/L 68 Mm Articular Insert Left: [employer] 01/20/2027 [id number] / Implanted: Qty: 1 on 04/05/2019 by French Neal MD at [facility] / [id number] Results Not on filefrom Last 3 Months Insurance Payer Benefit Plan / Subscriber ID Effective Dates Phone Addre ss Type Group BLUE CROSS BLUE PLUS OUT [id number] 2021-Present [address] [address] [place] [address] Advance Directives Latest Code Status on File Code Status Date Activated Date Inactivated Comments Full Code 04/07/2019 11:24 PM 04/09/2019 3:34 PM Code Status Discussion: Discussed Full Code 04/05/2019 6:12 AM 04/07/2019 10:02 PM Code Status Discussion: Discussed Care Teams Behavioral School Counselors Relationship Specialty Start Date End Date Jack Zavala MD PCP - General Family Practice 03/31/221999 [place] [address]
== END 2022-05-24 18:23 | disposition home or self-care (01) ==
LOC: AMB 07-17 03:31
PROVIDERS: PCP Family Medicine; Visit Provider Family Medicine
DX: M25.552 Pain in left hip (principal)
CPT/HCPCS: A0425; A0433

== ENCOUNTER 2022-05-24 19:00 | Emergency (ER) | payer BC, SELFPAY ==
[2022-05-24] VITALS (18 sets, daily range): BP systolic 101–139; BP diastolic 60–95; PULSE 8–93; RESP 6–25; TEMP 36.9; O2SAT 94–100; BMI 30.4
--- NOTE | 2022-05-24 19:15 | ED_ITS ---
HPI - General Adult General Time Seen by Provider: 19:15 Date Seen: 05/24/22 Chief complaint: Hip Injury/Pain Stated complaint: Hip injury Time Seen by Provider: 05/24/22 19:11 Source: patient, EMS and RN notes reviewed Mode of arrival: EMS Limitations: no limitations History of Present Illness HPI narrative: Patient is a 56-year-old female brought in by EMS after attempting to get up and having a popping sensation in her left hip and severe pain. She had a traumatic injury to this hip pain it sounds like had to have the hip replaced. She states they had to do a revision because the femur reportedly kept ?coming out?. She has not had a hip dislocation before. She had a leak under her sink and was on her hands and knees looking. When she went to get up she felt a pop in pain in the hip. There is no numbness or tingling in the leg, she can feel the leg. Nothing else was injured. She last ate at about 1:00 a.m., had salad for lunch. Patient believes she received fentanyl from EMS. in review of her record, she has had a hip revision in February of this summer after recurrent hip dislocation. She has not had a hip dislocation since her revision. Related Data Home Medications Medication Instructions Recorded Confirmed ascorbic acid (vitamin C) 500 mg 500 mg PO DAILY 02/11/22 04/14/22 tablet bisacodyl 5 mg tablet,delayed 10 mg PO HS PRN 02/11/22 04/14/22 release cholecalciferol (vitamin D3) 25 25 mcg PO DAILY 02/11/22 04/14/22 mcg (1,000 unit) capsule lorazepam 1 mg tablet 1 mg PO TID PRN 02/11/22 04/14/22 minocycline 100 mg capsule 100 mg PO Q12H 02/11/22 04/14/22 klxnzwnr-ggnuor-jwurr extract 5 1 cap PO TID 04/14/22 04/14/22 mg-6 mg-150 mg capsule (Fruit and Vegetable Daily) Previous Rx's Medication Instructions Recorded celecoxib 200 mg capsule 200 mg PO BID #60 caps 02/13/22 bupropion HCl 300 mg 24 hr tablet, 300 mg PO DAILY #90 tabs 04/14/22 extended release citalopram 40 mg tablet 40 mg PO DAILY #90 tabs 04/14/22 dextroamphetamine-amphetamine ER 20 mg PO QAM #30 caps 04/14/22 20 mg 24hr capsule,extend release dextroamphetamine-amphetamine ER 20 mg PO QAM #30 caps 04/14/22 20 mg 24hr capsule,extend release (Adderall XR) dextroamphetamine-amphetamine ER 20 mg PO QAM #30 caps 04/14/22 20 mg 24hr capsule,extend release (Adderall XR) furosemide 40 mg tablet 40 mg PO DAILY #90 tabs 04/14/22 levothyroxine 50 mcg tablet 50 mcg PO DAILY #90 tabs 04/14/22 pregabalin 300 mg capsule 300 mg PO BID #180 caps 04/14/22 trazodone 100 mg tablet 150 mg PO HS #90 tabs 04/14/22 Allergies Allergy/AdvReac Type Severity Reaction Status Date / Time adhesive Allergy Severe Hives Verified 04/14/22 10:18 bee venom protein (honey bee) Allergy Severe Anaphylaxis Verified 04/14/22 10:18 Review of Systems Status of ROS: Reports: 10 or more systems reviewed and unremarkable except as noted in History and below PFSH PFS Medical History (Updated 05/24/22 @ 21:48 by Katie Brand MD) ADHD, predominantly inattentive type Anginal equivalent Chronic constipation CKD (chronic kidney disease), stage II Colon polyps Factor V Leiden Family history of clotting disorder Fibromyalgia Fracture of head of left femur Generalized anxiety disorder Hypothyroidism Insomnia Neurofibromatosis Postoperative deep vein thrombosis (DVT) Recurrent major depression Syncope Traumatic brain injury Surgical History (Updated 05/24/22 @ 21:48 by Katie Brand MD) History of arthroplasty of left knee History of bunionectomy History of hip surgery History of total abdominal hysterectomy and bilateral salpingo-oophorectomy Hx laparoscopic cholecystectomy Hx of appendectomy Hx of blepharoplasty Hx of section Hx of LASIK S/P tendon repair S/P tendon repair Family History (Updated 02/24/22 @ 20:15 by Alison Nuno MD) Mother Coagulation disorder Depression Osteoarthritis Rheumatoid arthritis Daughter Depression Rheumatoid arthritis Maternal Grandmother Depression Osteoarthritis Thyroid disease Paternal Grandmother Depression Diabetes Social History (Updated 02/24/22 @ 20:41 by Alison Nuno MD) Narrative: wishes to be a full code Highest level of school completed/degree received: Associate degree: academic program Smoking Status: Never smoker Do you use any of these nicotine containing products: None Second hand tobacco smoke exposure: No How often do you have a drink containing alcohol: monthly or less How many standard drinks containing alcohol do you have on a typical day: 1 or 2 How often do you have six or more drinks on one occasion: Never AUDIT-C Alcohol total score: 1 Non-prescribed substance use: marijuana (any form) Caffeine: Yes Little interest or pleasure in doing things: not at all Feeling down, depressed, or hopeless: several days service: No Exam Const: Vital Signs, click to edit/add: Vital Signs - 24 hr 05/24/22 19:09 05/24/22 21:02 05/24/22 19:25 Temperature 98.4 F Pulse Rate Pulse Rate [Right Pulse Oximeter] 8 L Respiratory Rate 18 Blood Pressure Blood Pressure [Ri ght Upper Arm] 139/86 Pulse Oximetry 99 99 99 Oxygen Delivery Me thod Room Air Nasal Cannula Oxygen Flow Rate 2 05/24/22 21:08 05/24/22 21:11 05/24/22 21:17 Temperature Pulse Rate 75 83 75 Pulse Rate [Right Pulse Oximeter] Respiratory Rate 12 21 12 Blood Pressure 126/82 128/87 134/89 Blood Pressure [Ri ght Upper Arm] Pulse Oximetry 100 100 94 Oxygen Delivery Me thod Oxygen Flow Rate 05/24/22 21:22 05/24/22 21:27 05/24/22 21:35 Temperature Pulse Rate 86 93 75 Pulse Rate [Right Pulse Oximeter] Respiratory Rate 12 8 L Blood Pressure 101/60 120/74 Blood Pressure [Ri ght Upper Arm] Pulse Oximetry 99 98 100 Oxygen Delivery Me thod Oxygen Flow Rate Documenting provider has reviewed patient's vital signs: yes Common normals: no apparent distress, oriented x3, no limitations, healthy appearing, alert and well nourished General appearance: cooperative, comfortable and well kempt Nutritional appearance: overweight HENMT: Common normals: normocephalic, head/scalp atraumatic, hearing grossly normal bilaterally, external nose normal, nasal mucous membranes and turbinates normal, moist oral mucous membranes, oropharynx normal, dentition normal and gingiva normal Head and scalp: normocephalic and atraumatic Nose: external nose normal and nasal mucous membranes and turbinates normal Eye: Common normals: PERRL, EOMs intact bilaterally, conjunctivae normal and no scleral icterus Conjunctiva: conjunctiva(e) normal Pupil: PERRL Neck & C-Spine: Common normals: full ROM, no lymphadenopathy, no JVD and thyroid normal Thyroid: thyroid normal Resp: Common normals: normal respiratory effort, no retractions, no use of accessory muscles and clear to auscultation bilaterally Auscultation: clear to auscultation bilaterally Cardio: Common normals: no JVD, regular rate, regular rhythm, S1 normal heart sound, S2 normal heart sound, no gallops, no clicks and no murmurs Rate: regular rate Rhythm: regular rhythm Heart sounds: S1 normal and S2 normal GI: Common normals: Normal to inspection, nondistended, normoactive bowel sounds present, soft to palpation, non-tender, no hepatosplenomegaly and no masses Palpation: soft and no hepatosplenomegaly Extremity: Other: No edema of her lower extremities. She has got a good peripheral pulse on the left leg at the foot, normal sensation. She is having pain in the left hip area, cannot manipulate this leg at all. No pain around her knee on palpation, no knee effusion, no ankle pain or ankle effusion. Neuro: Common normals: oriented x3 Sensorium/orientation: alert Psych: Appearance: well kempt Course Course Hospital Course: She has an IV in place from EMS, will re-dose final prior to ordering x-rays. In this differential dislocation or traumatic fracture are all possibilities. Consultations Consultation #1: Dyuen speak with Brandan from Orthopedics. Reviewed with her that since a know that this is revised hip, feel it might be in patient's best interest for them to attempt to reduce it. She spoke with Dr. Vasquez and called back and requested that I attempt. Time: 20:30 Consultation #2: Duyen speak with Shira after the reduction. She would like the patient to remain nonweightbearing on this leg. She will get the office to schedule follow-up victoria ointment with Dr. Hernandez. Duyen subsequently reviewed this with the patient. She still has a walker at home. She feels that she will be able to manage. She is obviously much more comfortable now that her hip is not dislocated. Time: 21:33 Vital Signs Vital signs: Initial Vital Signs Temperature 98.4 F 05/24/22 19:09 Temperature Source Temporal Artery Scan 05/24/22 19:09 Pulse Rate 8 L 05/24/22 19:09 Respiratory Rate 18 05/24/22 19:09 Blood Pressure 139/86 05/24/22 19:09 Blood Pressure Mean 103 05/24/22 19:09 Blood Pressure Position Supine 05/24/22 19:09 Pulse Oximetry 99 05/24/22 19:09 Oxygen Delivery Method 05/24/22 19:09 Vital Signs Temperature 98.4 F 05/24/22 19:09 Pulse Rate 8 L 05/24/22 19:09 Respiratory Rate 18 05/24/22 19:09 Blood Pressure 139/86 05/24/22 19:09 Pulse Oximetry 99 05/24/22 19:09 Oxygen Delivery Method 05/24/22 19:09 Temperature 98.4 F 05/24/22 19:09 Pulse Rate 75 05/24/22 21:35 Respiratory Rate 8 L 05/24/22 21:35 Blood Pressure 120/74 05/24/22 21:27 Pulse Oximetry 100 05/24/22 21:35 Oxygen Delivery Method 05/24/22 21:02 Oxygen Flow Rate 2 05/24/22 21:02 Medical Decision Making Imaging Data X-ray left hip: Attestation: I have reviewed the pertinent imaging results. My impression: Patient's hip is indeed dislocated on my review of this x-ray. Radiologist's impression: Patient: LB BRODY Facility:?[facility] Patient ID:?[id number] Site Patient ID:?[id number]. Site :?[id number] Study:?XRay Hip Left -05/24/2022 7:59:33 PM Ordering Physician:?Cathie Wilson Final Report: Indication: Pain dislocation Technique: AP pelvis left hip Comparison: No comparison Findings: Left hip arthroplasty with dislocation of femoral component superior to acetabular component. No fractures are seen Dictated by Katharine Vasquez MD @ 05/24/2022 9:24:13 PM (Electronic Signature) X-ray post reduction left hip: My impression: Patient's portable x-ray was reviewed, hip dislocation has been reduced. Critical Care Time Critical Care Time Critical Care Time: No Discharge Plan Discharge Clinical Impression: Status post revision of total hip, Anterior dislocation of left hip Patient Disposition: Home, Self-Care Condition: Stable Instructions: Hip Dislocation (ED) Additional Instructions: Use your walker to be nonweightbearing on this left leg. The orthopedic clinic will be calling you on Thursday to get you scheduled for followup. If there is any residual soreness of this hip, can use ice, Tylenol and/or ibuprofen per bottle directions. Prescriptions: No Action Fruit and Vegetable Daily 5-6-150 mg capsule 1 cap PO TID bupropion HCl 300 mg tablet extended release 24 hr 300 mg PO DAILY Qty: 90 1RF citalopram 40 mg tablet 40 mg PO DAILY Qty: 90 1RF trazodone 100 mg tablet 150 mg PO HS Qty: 90 1RF pregabalin 300 mg capsule 300 mg PO BID Qty: 180 1RF levothyroxine 50 mcg tablet 50 mcg PO DAILY Qty: 90 1RF furosemide 40 mg tablet 40 mg PO DAILY Qty: 90 1RF dextroamphetamine-amphetamine 20 mg capsule,extended release 24hr 20 mg PO QAM Qty: 30 0RF dextroamphetamine-amphetamine [Adderall XR] 20 mg capsule,extended release 24hr 20 mg PO QAM Qty: 30 0RF dextroamphetamine-amphetamine [Adderall XR] 20 mg capsule,extended release 24hr 20 mg PO QAM Qty: 30 0RF ascorbic acid (vitamin C) 500 mg tablet 500 mg PO DAILY bisacodyl 5 mg tablet,delayed release (DR/EC) 10 mg PO HS PRN cholecalciferol (vitamin D3) 25 mcg (1,000 unit) capsule 25 mcg PO DAILY minocycline 100 mg capsule 100 mg PO Q12H lorazepam 1 mg tablet 1 mg PO TID PRN celecoxib 200 mg Capsule 200 mg PO BID Qty: 60 0RF Follow Up/Referrals: Jack Zavala MD [Primary Care Provider] - Stand Alone [facility] Instructions Procedures Orthopedic Joint Reduction Joint #1: Written consent by: patient Time Out Performed: Yes Side: left Joint Reduction Location: hip Manipulation used?: Yes Analgesia: procedural sedation (Anesthesia present, please see record (ketamine and propofol used)) Technique used: traction/counter-traction Post-reduction neuro vascular exam: intact Post Reduction X-Ray Obtained: Yes Post Reduction X-Ray Results: reduced Splint Applied: No Patient Tolerated Procedure: well
--- NOTE | 2022-05-24 19:25 | CRLHL7_ITS ---
For Patients: As a result of the Cures Act, medical imaging exams and procedure reports are released immediately into your electronic medical record. You may view this report before your referring provider. If you have questions, please contact your health care provider. Indication: Pain dislocation Technique: AP pelvis left hip Comparison: No comparison Findings: Left hip arthroplasty with dislocation of femoral component superior to acetabular component. No fractures are seen Dictated by Katharine Vasquez MD @ 05/24/2022 9:24:13 PM (Electronically Signed)
--- OUTSIDE RECORDS SUMMARY | 2022-05-24 19:31 | XMS_ITS | Clinical Summary ---
:1965 Author Organization [facility] [place] [address] Care Team Providers Name Role Phone Jack Zavala MD Primary Care Provider [phone] Allergies Active Allergy Reactions Severity Noted Date Comments Adhesive Tape-Silicones Hives 05/02/2017 Bee Venom Protein (Honey Bee) *Unknown 05/06/2019 Medications Medication Sig Dispensed Refills Start End Status Date Date bisacodyl Take 10 mg by 0 Active (DULCOLAX, mouth once BISACODYL,) 5 mg daily. delayed release tablet cholecalciferol Take 1 capsule 0 01/19/20 Active (DIALYVITE VITAMIN by mouth once 20 D) 5,000 unit daily. 40 units capsule = 1 mcg (5000 units = 125 mcg) estradioL (ESTRACE) Insert 1 g into 42.5 g 3 04/10/20 Active 0.01% (0.1 mg/g) the vagina every 21 vaginal Thursday, creamIndications: Thursday and Vaginal atrophy Thursday. albuterol HFA Inhale 2 Puffs 18 g 5 04/09/20 A ctive (PRO-AIR; VENTOLIN; by mouth every 4 21 PROVENTIL) 90 hours if needed mcg/actuation (SOB). inhalerIndications: Cough furosemide (LASIX) Take 1 Tablet 180 Tablet 3 04/09/20 Active 20 mg (20 mg) by mouth 21 tabletIndications: 2 times daily if Bilateral leg edema needed for leg swelling. meloxicam 15 mg Take 1 Tablet 30 Tablet 1 11/19/19 Active tablet (15 mg) by mouth 22 once daily. LORazepam (ATIVAN) Take 1 Tablet (1 15 Tablet 0 11/19/19 Active 1 mg tablet mg) by mouth 3 22 times daily if needed. celecoxib Take 1 Capsule 60 Capsule 0 12/04/19 Acti ve (CELEBREX) 100 mg (100 mg) by 22 capsule mouth 2 times daily if needed. citalopram (CELEXA) Take 1 Tablet 90 Tablet 3 12/27/19 Active 40 mg tablet (40 mg) by mouth 22 once daily. sennosides-docusate Take 1-4 Tablets 60 Tablet 0 02/14/20 Active (SENOKOT S) (8.6-50 by mouth in the 22 mg) tablet morning and 1-4 Tablets in the evening. Hold if experiencing loose stools. celecoxib Take 1 capsule 60 Capsule 0 02/14/20 Acti ve (CELEBREX) 200 mg (200 mg) by 22 capsule mouth twice daily enoxaparin Inject 0.3 mL 1.2 mL 0 02/21/20 Activ e (LOVENOX) 30 mg/0.3 (30 mg) under 22 mL injection the skin once daily. Stop aspirin; take for DVT protection post operation. aspirin (ECOTRIN) Take 1 Tablet 25 Tablet 0 02/26/20 Active 81 mg enteric (81 mg) by mouth 22 coated tablet twice daily for deep vein clot prevention post surgery. Start this medication after completing Xarelto (rivaroxaban). rivaroxaban Take 1 tablet 4 Tablet 0 02/26/20 Acti ve (Xarelto) 10 mg (10 mg) by mouth 22 tablet once daily for deep vein clot prevention post surgery. Complete this medication before starting Aspirin. oxyCODONE Take one-half to 30 Tablet 0 02/26/20 Act sage (ROXICODONE) 5 mg 1 tablet (2.5 mg 22 immediate release -5 mg) by mouth tablet every 4 to 6 hour as needed for pain. Maximum of 6 tablets per day. Take one-half tablet for mild pain and 1 tablet for moderate-severe pain buPROPion Take 1 Tablet 90 Tablet 1 04/14/20 Active (WELLBUTRIN XL) 300 (300 mg) by 22 mg Extended-Release mouth once tablet daily. citalopram (CELEXA) Take 1 Tablet 90 Tablet 1 04/14/20 Active 40 mg tablet (40 mg) by mouth 22 once daily. furosemide (LASIX) Take 1 Tablet 90 Tablet 1 08/29/20 Active 40 mg tablet (40 mg) by mouth 22 once daily. levothyroxine Take 1 Tablet 90 Tablet 1 04/14/20 Ac tive (SYNTHROID) 50 mcg (50 mcg) by 22 tablet mouth once daily. pregabalin (LYRICA) Take 1 Capsule 180 Capsule 1 04/14/20 Active 300 mg capsule (300 mg) by 22 mouth two times daily. traZODone (DESYREL) Take 1.5 Tablets 90 Tablet 1 04/14/20 Active 100 mg tablet (150 mg) by 22 mouth at bedtime. dextroamphetamine-a Take 1 Capsule 30 Capsule 0 04/14/20 Active mphetamine (20 mg) by mouth 22 (ADDERALL XR) 20 mg every morning. Extended-Release capsule dextroamphetamine-a Take 1 Capsule 30 Capsule 0 05/14/20 Active mphetamine (20 mg) by mouth 22 (ADDERALL XR) 20 mg every morning. Extended-Release capsule dextroamphetamine-a Take 1 Capsule 30 Capsule 0 05/14/20 Active mphetamine (20 mg) by mouth 22 (ADDERALL XR) 20 mg every morning. Extended-Release capsule minocycline Take 1 Capsule 180 Capsule 0 04/29/20 A ctive (MINOCIN) 100 mg (100 mg) by 22 capsuleIndications: mouth 2 times Acne vulgaris daily. minocycline Take 1 Capsule 180 Capsule 3 04/09/20 D iscontinued (MINOCIN) 100 mg (100 mg) by 21 022 ( Reorder capsuleIndications: mouth 2 times (E-cancel not Acne vulgaris daily. 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 S/P total knee arthroplasty, left 04/05/2019 CKD (chronic kidney disease) stage 2, GFR 60-89 ml/min 04/05/2019 Depression 04/05/2019 Chronic pain of both knees 10/22/2018 Arthritis of right knee 10/22/2018 History of colon polyps Resolved Problems Problem Noted Date Resolved Date Pain in joint of right knee 03/10/2019 04/08/2019 Arthritis of left knee 10/22/2018 04/08/2019 Effusion of left knee 10/22/2018 04/08/2019 Mechanical pain of right knee 01/01/2018 04/08/2019 Chronic pain of right knee 12/10/2017 04/08/2019 Effusion of right knee 12/10/2017 04/08/2019 Articular cartilage disorder of right knee 12/10/2017 04/08/2019 Pes anserine bursitis 12/10/2017 04/08/2019 Encounters Date Type Specialty Care Team Description 04/28/2022 Refill DrevRocael garcia, DO Ref ill Request (Minocycline) 03/31/2022 Refill DrevlowRocael, DO Ref ill Request (Pregabalin) 03/23/2022 Refill DrevRocael garcia, DO Ref ill Request (Bupropion) from Last 3 Months Immunizations Name Administration Dates Next Due COVID-19 vaccine (Moderna 02/07/2021, 12/13/2020 100mcg/0.5mL) PF, MDV Hepatitis B (Adult) 02/15/2004 Influenza, IIV3 (Age 6-35 mos) 05/07/2009 Influenza, IIV3 (Age >=3 years) 06/06/2010, 06/08/2008, 05/18, 06/10/2005, 05/30/2003, 06/02/2002, 08/20/2001 Influenza, IIV4 06/26/2020, 07/04/2019, 05/25/2018, 04/23/2018, 05/13/2017 Tdap 09/21/2017, 04/07/2008 Zoster (Shingrix-RZV, recombinant) 06/26/2020 Family History Medical History Relation Name Comments Depression Daughter Rheum arthritis Daughter Depression Maternal Grandmother Osteoarthritis Maternal Grandmother Thyroid Disease Maternal Grandmother Clotting disorder Mother pulm emboli, F actor 2 Depression Mother Osteoarthritis Mother Rheum arthritis Mother Depression Paternal Grandmother Diabetes Paternal Grandmother Cancer-breast No Family History Relation Name Status Comments Daughter Alive Father Alive Maternal Grandmother Mother Alive Paternal Grandmother Social History Tobacco Use Types Packs/Day Years Used Date Never Smoker Smokeless Tobacco: Never Used Tobacco Cessation: Counseling Given: Yes Alcohol Use Standard Drinks/Week Comments Yes 0 (1 standard drink = 0.6 oz pure alcoho l) occ Alcohol Habits Answer Date Recorded How often do you have a drink containing alcohol? Not asked How many drinks containing alcohol do you have on a typical Not asked day when you are drinking? How often do you have six or more drinks on one occasion? No t asked Comment: occ 11/27/2020 Sex Assigned at Date Recorded Not on file Obstetrics History Last Filed Vital Signs Vital Sign Reading Time Taken Comments Blood Pressure 122/78 04/09/2021 11:08 AM CDT Pulse 72 04/09/2021 11:08 AM CDT Temperature 37.2 ??C (98.9 ??F) 01/08/2021 9:23 AM CDT Respiratory Rate 18 01/08/2021 9:23 AM CDT Oxygen Saturation 99% 01/06/2021 2:06 PM CDT Inhaled Oxygen Concentration - - Weight 93.2 kg (205 lb 6.4 oz) 04/09/2021 11:08 AM CDT Height 172.7 cm (5' 8) 04/09/2021 11:08 AM CDT Body Mass Index 31.23 04/09/2021 11:08 AM CDT Plan of Treatment Health Maintenance Due Date Last Done Comments Zoster (shingles) series for age 0108/21/2020 06/26/2020 50+ (2 of 2) COVID-19 vaccine series (3 - 07/10/2021 02/07/2021, 021 Booster for Moderna series) Mammogram for age 45-75 09/07/2021 09/07/2020, 08/24/2018 Depression screening for age 12+ 01/11/2022 01/11/2021, , 10/17/2019, Additional history exists BMI (ht and wt on same day) for 04/09/2022 04/09/2021, 12/16, age 18+ 01/08/2021, Additional history exists Influenza for age 50-64 04/17/2022 06/26/2020, 07/04/2019, 05/25/2018, Additional history exists Colonoscopy through age 75 07/14/2023 07/14/2018 Lipids for age 45-75 04/09/2026 04/09/2021, 06/22/2018 Tetanus booster 09/21/2027 09/21/2017, 04/07/2008 Tdap Completed 09/21/2017, 04/07/2008 Hepatitis C screening for age Completed 06/22/2018 18-79 Medical Devices Implanted Type Area Finance Officer Device Shelf Model / Identifier Expiration Serial / Lot Date Left, Size 3-4, 9mm Journey Ii Bcs Xl Pe A/P 48mm M/L 68 Mm Articular Insert Left: [employer] 01/20/2027 [id number] / Implanted: Qty: 1 on 04/05/2019 by French Neal MD at [facility] [employer] / [id number] Results Not on filefrom Last 3 Months Insurance Payer Benefit Plan / Subscriber ID Effective Dates Phone Addre ss Type Group BLUE CROSS BLUE PLUS OUT [id number] 2021-Present [address] [address] [place] [address] Advance Directives Latest Code Status on File Code Status Date Activated Date Inactivated Comments Full Code 04/07/2019 11:24 PM 04/09/2019 3:34 PM Code Status Discussion: Discussed Full Code 04/05/2019 6:12 AM 04/07/2019 10:02 PM Code Status Discussion: Discussed Care Teams Respiratory Therapy Assistant Relationship Specialty Start Date End Date Jack Zavala MD PCP - General Family Practice 03/31/221999 [place] [address]
[2022-05-24] MEDS: fentaNYL 100 MCG/2 ML inj 50 MCG IVP (19:38)
[2022-05-24] MEDS: HYDROmorphone 0.5 mg/0.5 ml inj IVP (20:27)
--- NOTE | 2022-05-24 21:20 | CRLHL7_ITS ---
For Patients: As a result of the Century Cures Act, medical imaging exams and procedure reports are released immediately into your electronic medical record. You may view this report before your referring provider. If you have questions, please contact your health care provider. INDICATION: POST LT HIP REDUCTION HISTORY: Post reduction. COMPARISON: 05/24/2022, 1936 hours. TECHNIQUE: AP radiograph the pelvis, cross-table lateral view of the left hip. FINDINGS: Left hip arthroplasty is now normally located. No fracture is identified. The right hip appears stable. Symphysis pubis and superior/inferior pubic rami are intact. Arcuate lines in the sacrum are intact. IMPRESSION: Posterior dislocation has been reduced. Alignment is anatomic on the current exam. Dictated by Iván Mendiola MD @ 05/24/2022 10:54:42 PM Dictated by: Iván Mendiola MD @ 05/24/2022 22:54:49 (Electronically Signed)
--- NOTE | 2022-05-24 21:38 | W.ANESCHARGE ---
Anesthesia Charges Start Date/Time Anesthesia Start Date: 05/24/22 Anesthesia Start Time: 21:03 Stop Date/Time Anesthesia Stop Date: 05/24/22 Anesthesia Stop Time: 21:29 Summary Emergency: Yes
--- NOTE | 2022-05-24 23:05 | ED.NURSE ---
post sedation pt able to drink, use walker appropriately non wt bearing, a/ox4. pt able dc out with wheelchair to family ride home.
== END 2022-05-24 23:01 | disposition home or self-care (01) ==
PROVIDERS: Emergency Provider Family Medicine; PCP Family Medicine
DX: S73.035A Other anterior dislocation of left hip, initial encounter (principal)
CPT/HCPCS: 01200; 27266; 73501; 73502; 94761; 96374; 96375; 99140; 99284; 99291; J1170; J2704; J3010; J3490

== ENCOUNTER 2022-05-30 11:28 | Outpatient (CLI) | payer BC, SELFPAY ==
--- OUTSIDE RECORDS SUMMARY | 2022-06-05 03:55 | XMS_ITS | Clinical Summary ---
:1965 Author Organization [facility] [place] [address] Care Team Providers Name Role Phone Jack Zavala MD Primary Care Provider [phone] Allergies Active Allergy Reactions Severity Noted [...] 06/22/2018 18-79 Medical Devices Implanted Type Area Linoleum Layer Apprentice Device Shelf Model / Identifier Expiration Serial / Lot Date Left, Size 3-4, 9mm Journey Ii Bcs Xl Pe A/P 48mm M/L 68 Mm Articular Insert Left: [employer] 01/20/2027 [id number] / Implanted: Qty: 1 on 04/05/2019 by French Neal MD at [facility] / [id number] Results Not on filefrom Last 3 Months Insurance Payer Benefit Plan / Subscriber ID Effective Dates Phone Addre ss Type Group BLUE CROSS BLUE PLUS OUT [id number] 2021-Present [address] [address] [place] [address] Advance Directives Latest Code Status on File Code Status Date Activated Date Inactivated Comments Full Code 04/07/2019 11:24 PM 04/09/2019 3:34 PM Code Status Discussion: Discussed Full Code 04/05/2019 6:12 AM 04/07/2019 10:02 PM Code Status Discussion: Discussed Care Teams Director Employee Communications Relationship Specialty Start Date End Date Jack Zavala MD PCP - General Family Practice 03/31/221999 [place] [address]
== END 2022-05-30 11:29 | disposition home or self-care (01) ==
LOC: AMB 06-05 03:53
PROVIDERS: PCP Family Medicine; Visit Provider Emergency Medicine Emergency Medical Services
DX: M25.552 Pain in left hip (principal)
CPT/HCPCS: A0425; A0427

== ENCOUNTER 2022-05-30 12:09 | Emergency (ER) | payer BC, SELFPAY ==
[2022-05-30] VITALS (18 sets, daily range): BP systolic 107–134; BP diastolic 35–100; PULSE 71–90; RESP 6–18; TEMP 36.5; O2SAT 94–100; BMI 26.6
--- NOTE | 2022-05-30 12:23 | ED_ITS ---
HPI - General Adult General Chief complaint: Extremity Pain/Injury, Lower Stated complaint: Dislocated hip Time Seen by Provider: 05/30/22 12:14 History of Present Illness HPI narrative: This 56-year-old female comes in with left hip dislocation. She states that this has happened 4 5 times in the past and Dr. Vasquez is planning a revision in a few days. She states that she was bending forward to put her shoe on when this occurred. Related Data Home Medications Medication Instructions Recorded Confirmed ascorbic acid (vitamin C) 500 mg 500 mg PO DAILY 02/11/22 04/14/22 tablet bisacodyl 5 mg tablet,delayed 10 mg PO HS PRN 02/11/22 04/14/22 release cholecalciferol (vitamin D3) 25 25 mcg PO DAILY 02/11/22 04/14/22 mcg (1,000 unit) capsule lorazepam 1 mg tablet 1 mg PO TID PRN 02/11/22 04/14/22 minocycline 100 mg capsule 100 mg PO Q12H 02/11/22 04/14/22 [id number] extract 5 1 cap PO TID 04/14/22 04/14/22 mg-6 mg-150 mg capsule (Fruit and Vegetable Daily) Previous Rx's Medication Instructions Recorded celecoxib 200 mg capsule 200 mg PO BID #60 caps 02/13/22 bupropion HCl 300 mg 24 hr tablet, 300 mg PO DAILY #90 tabs 04/14/22 extended release citalopram 40 mg tablet 40 mg PO DAILY #90 tabs 04/14/22 dextroamphetamine-amphetamine ER 20 mg PO QAM #30 caps 04/14/22 20 mg 24hr capsule,extend release dextroamphetamine-amphetamine ER 20 mg PO QAM #30 caps 04/14/22 20 mg 24hr capsule,extend release (Adderall XR) dextroamphetamine-amphetamine ER 20 mg PO QAM #30 caps 04/14/22 20 mg 24hr capsule,extend release (Adderall XR) furosemide 40 mg tablet 40 mg PO DAILY #90 tabs 04/14/22 levothyroxine 50 mcg tablet 50 mcg PO DAILY #90 tabs 04/14/22 pregabalin 300 mg capsule 300 mg PO BID #180 caps 04/14/22 trazodone 100 mg tablet 150 mg PO HS #90 tabs 04/14/22 Allergies Allergy/AdvReac Type Severity Reaction Status Date / Time adhesive Allergy Severe Hives Verified 04/14/22 10:18 bee venom protein (honey bee) Allergy Severe Anaphylaxis Verified 04/14/22 10:18 Review of Systems Status of ROS: Reports: 10 or more systems reviewed and unremarkable except as noted in History and below Narrative: Constitutional: No fevers, no weight gain or loss. Eyes: No discharge. No vision changes. HENT: No congestion, no sore throat, no ear pain. Cardiovascular: No chest pain, no palpitations. Respiratory: No shortness of breath, no wheezes, no cough. Gastrointestinal: No abdominal pain, no vomiting, no diarrhea. Genitourinary: No dysuria, no hematuria. Musculoskeletal: Left hip dislocation. Skin: No rashes, no pruritis. Neurological: No dizziness, weakness, sensory change, speech change. Endo/Heme/Allergies: No bruising or bleeding. No polydipsia. Pysch: no suicidality, no anxiety, no insomnia. All other systems reviewed and are negative. PFSH PFSH Medical History (Updated 05/30/22 @ 14:31 by George Ambrocio MD) ADHD, predominantly inattentive type Anginal equivalent Chronic constipation CKD (chronic kidney disease), stage II Colon polyps Factor V Leiden Family history of clotting disorder Fibromyalgia Fracture of head of left femur Generalized anxiety disorder Hypothyroidism Insomnia Neurofibromatosis Postoperative deep vein thrombosis (DVT) Recurrent major depression Syncope Traumatic brain injury Surgical History (Updated 05/24/22 @ 21:48 by Katie Brand MD) History of arthroplasty of left knee History of bunionectomy History of hip surgery History of total abdominal hysterectomy and bilateral salpingo-oophorectomy Hx laparoscopic cholecystectomy Hx of appendectomy Hx of blepharoplasty Hx of section Hx of LASIK S/P tendon repair S/P tendon repair Family History (Updated 02/24/22 @ 20:15 by Alison Nuno MD) Mother Coagulation disorder Depression Osteoarthritis Rheumatoid arthritis Daughter Depression Rheumatoid arthritis Maternal Grandmother Depression Osteoarthritis Thyroid disease Paternal Grandmother Depression Diabetes Social History (Updated 02/24/22 @ 20:41 by Alison Nuno MD) Narrative: 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 to be a full code Highest level of school completed/degree received: Associate degree: academic program Smoking Status: Never smoker Do you use any of these nicotine containing products: None Second hand tobacco smoke exposure: No How often do you have a drink containing alcohol: monthly or less How many standard drinks containing alcohol do you have on a typical day: 1 or 2 How often do you have six or more drinks on one occasion: Never AUDIT-C Alcohol total score: 1 Non-prescribed substance use: marijuana (any form) Caffeine: Yes Little interest or pleasure in doing things: not at all Feeling down, depressed, or hopeless: several days service: No Exam Narrative: Exam Narrative: Constitutional: Well-developed, well-nourished, no acute distress. HEENT: Normocephalic, atraumatic. Neck: Normal range of motion. Nontender. Supple. Heart: Regular. No murmurs. Normal rate. Intact distal pulses. Lungs: Clear to auscultation. No chest discomfort. No wheezes, rhonchi, or rales. Abdomen: Normal bowel sounds. Nontender. No rebound tenderness. Genitalia: Deferred. Back: No midline tenderness. Normal range of motion. Extremities: Left hip dislocation with decreased range of motion. Skin: Intact. No rash. Warm. No erythema or pallor. Neurologic: No altered sensation. No weakness. Alert and oriented. Psychiatric: No suicidality. No anxiety or depression. No insomnia. Nursing notes and vitals signs are reviewed. Const: Vital Signs, click to edit/add: Vital Signs - 24 hr 05/30/22 12:25 Temperature 97.7 F Pulse Rate [Pulse Oximeter] 90 Respiratory Rate 18 Blood Pressure [Le ft Upper Arm] 134/100 H Pulse Oximetry 97 Oxygen Delivery Me thod Room Air Course Vital Signs Vital signs: Initial Vital Signs Temperature 97.7 F 05/30/22 12:25 Temperature Source Temporal Artery Scan 05/30/22 12:25 Pulse Rate 90 05/30/22 12:25 Pulse Rhythm 05/30/22 12:25 Respiratory Rate 18 05/30/22 12:25 Blood Pressure 134/100 H 05/30/22 12:25 Blood Pressure Mean 111 05/30/22 12:25 Blood Pressure Position Supine 05/30/22 12:25 Pulse Oximetry 97 05/30/22 12:25 Oxygen Delivery Method 05/30/22 12:25 Vital Signs Temperature 97.7 F 05/30/22 12:25 Pulse Rate 90 05/30/22 12:25 Respiratory Rate 18 05/30/22 12:25 Blood Pressure 134/100 H 05/30/22 12:25 Pulse Oximetry 97 05/30/22 12:25 Oxygen Delivery Method 05/30/22 12:25 Temperature 97.7 F 05/30/22 12:25 Pulse Rate 90 05/30/22 12:25 Respiratory Rate 18 05/30/22 12:25 Blood Pressure 134/100 H 05/30/22 12:25 Pulse Oximetry 97 05/30/22 12:25 Oxygen Delivery Method 05/30/22 12:25 Medical Decision Making MDM Narrative Medical decision making narrative: This patient comes in with a dislocated left hip. This has happened 4 times prior to this event. She is scheduled for a revision in a few days. An IV was established and arrangements are made for sedation with propofol for reduction of the dislocation. The patient stated that she did have a glass of chocolate milk to take her pills this morning but has not had anything else by mouth. X- ray imaging of the left hip shows an anterior dislocation. After acquiring informed consent the patient received 80 mg of propofol administered by Dr. Lucas. This brought about sufficient sedation where I was able to easily reduce her hip and the proper position. Follow-up x-ray image confirms this results. I did speak with the orthopedic physician's floor covering printer assistant application operations engineer and arrangements are made for revision surgery this week. The Patient received a knee immobilizer and is instructed to wear this at all times. Imaging Data XR L Hip: Radiologist's impression: New superior dislocation of the femoral head component of the left total hip prosthesis. Discharge Plan Discharge Clinical Impression: Dislocation, hip Patient Disposition: Home, Self-Care Condition: Improved Additional Instructions: Wear knee immobilizer at all times. Follow-up with orthopedic appointment as scheduled. Return if worsening or recurrent symptoms happen. Prescriptions: No Action Fruit and Vegetable Daily 5-6-150 mg capsule 1 cap PO TID bupropion HCl 300 mg tablet extended release 24 hr 300 mg PO DAILY Qty: 90 1RF citalopram 40 mg tablet 40 mg PO DAILY Qty: 90 1RF trazodone 100 mg tablet 150 mg PO HS Qty: 90 1RF pregabalin 300 mg capsule 300 mg PO BID Qty: 180 1RF levothyroxine 50 mcg tablet 50 mcg PO DAILY Qty: 90 1RF furosemide 40 mg tablet 40 mg PO DAILY Qty: 90 1RF dextroamphetamine-amphetamine 20 mg capsule,extended release 24hr 20 mg PO QAM Qty: 30 0RF dextroamphetamine-amphetamine [Adderall XR] 20 mg capsule,extended release 24hr 20 mg PO QAM Qty: 30 0RF dextroamphetamine-amphetamine [Adderall XR] 20 mg capsule,extended release 24hr 20 mg PO QAM Qty: 30 0RF ascorbic acid (vitamin C) 500 mg tablet 500 mg PO DAILY bisacodyl 5 mg tablet,delayed release (DR/EC) 10 mg PO HS PRN cholecalciferol (vitamin D3) 25 mcg (1,000 unit) capsule 25 mcg PO DAILY minocycline 100 mg capsule 100 mg PO Q12H lorazepam 1 mg tablet 1 mg PO TID PRN celecoxib 200 mg Capsule 200 mg PO BID Qty: 60 0RF Follow Up/Referrals: Jack Zavala MD [Primary Care Provider] - Stand Alone Forms: [facility] Info Instructions
--- NOTE | 2022-05-30 12:24 | CRLHL7_ITS ---
For Patients: As a result of the Cures Act, medical imaging exams and procedure reports are released immediately into your electronic medical record. You may view this report before your referring provider. If you have questions, please contact your health care provider. INDICATION: Left hip dislocation. COMPARISON: Pelvis and left hip from 05/24/2022. FINDINGS: The left hip was examined using portable technique with a single AP view. There is new superior dislocation of the femoral head component of the left total hip prosthesis. There is no sign of fracture or loosening of the prosthetic components. There is no sign of fracture of the [place] osseous structures. The right hip is included on today`s study and is normal in appearance. Again seen is mild primary osteoarthritis of the right sacroiliac joint. The left sacroiliac joint and pubic symphysis remain normal in appearance. IMPRESSION: New superior dislocation of the femoral head component of the left total hip prosthesis. Dictated by Kolby Middleton MD @ 05/30/2022 1:25:05 PM (Electronically Signed)
--- OUTSIDE RECORDS SUMMARY | 2022-05-30 12:36 | XMS_ITS | Clinical Summary ---
:1965 Author Organization [facility] [place] [address] Care Team Providers Name Role Phone Jack Zavala MD Primary Care Provider [phone] Allergies Active Allergy Reactions Severity Noted Date Comments Adhesive Tape-Silicones Hives 05/02/2017 Bee Venom Protein (Honey Bee) *Unknown 05/06/2019 Medications Medication Sig Dispensed Refills Start Date End Date Status bisacodyl (DULCOLAX, Take 10 mg by 0 Active BISACODYL,) 5 mg mouth once daily. delayed release tablet cholecalciferol Take 1 capsule by 0 01/19/2020 Active (DIALYVITE VITAMIN D) mouth once daily. 5,000 unit capsule 40 units = 1 mcg (5000 units = 125 mcg) estradioL (ESTRACE) Insert 1 g into 42.5 g 3 04/10/2021 Active 0.01% (0.1 mg/g) the vagina every vaginal Thursday, Thursday creamIndications: and Thursday. Vaginal atrophy albuterol HFA Inhale 2 Puffs by 18 g 5 04/09/2021 Active (PRO-AIR; VENTOLIN; mouth every 4 PROVENTIL) 90 hours if needed mcg/actuation (SOB). inhalerIndications: Cough furosemide (LASIX) 20 Take 1 Tablet (20 180 Tablet 3 Active mg tabletIndications: mg) by mouth 2 Bilateral leg edema times daily if needed for leg swelling. meloxicam 15 mg Take 1 Tablet (15 30 Tablet 1 11/18/2021 Active tablet mg) by mouth once daily. LORazepam (ATIVAN) 1 Take 1 Tablet (1 15 Tablet 0 11/18/2021 Active mg tablet mg) by mouth 3 times daily if needed. celecoxib (CELEBREX) Take 1 Capsule 60 Capsule 0 12/03/2021 Active 100 mg capsule (100 mg) by mouth 2 times daily if needed. citalopram (CELEXA) Take 1 Tablet (40 90 Tablet 3 12/26/2021 Active 40 mg tablet mg) by mouth once daily. sennosides-docusate Take 1-4 Tablets 60 Tablet 0 02/13/2022 Active (SENOKOT S) (8.6-50 by mouth in the mg) tablet morning and 1-4 Tablets in the evening. Hold if experiencing loose stools. celecoxib (CELEBREX) Take 1 capsule 60 Capsule 0 02/13/2022 Active 200 mg capsule (200 mg) by mouth twice daily enoxaparin (LOVENOX) Inject 0.3 mL (30 1.2 mL 0 02/20/2022 Active 30 mg/0.3 mL mg) under the skin injection once daily. Stop aspirin; take for DVT protection post operation. aspirin (ECOTRIN) 81 Take 1 Tablet (81 25 Tablet 0 02/25/2022 Active mg enteric coated mg) by mouth twice tablet daily for deep vein clot prevention post surgery. Start this medication after completing Xarelto (rivaroxaban). rivaroxaban (Xarelto) Take 1 tablet (10 4 Tablet 0 02/25/2022 Active 10 mg tablet mg) by mouth once daily for deep vein clot prevention post surgery. Complete this medication before starting Aspirin. oxyCODONE Take one-half to 1 30 Tablet 0 02/25/2022 Active (ROXICODONE) 5 mg tablet (2.5 mg -5 immediate release mg) by mouth every tablet 4 to 6 hour as needed for pain. Maximum of 6 tablets per day. Take one-half tablet for mild pain and 1 tablet for moderate-severe pain buPROPion (WELLBUTRIN Take 1 Tablet (300 90 Tablet 1 Active XL) 300 mg mg) by mouth once Extended-Release daily. tablet citalopram (CELEXA) Take 1 Tablet (40 90 Tablet 1 04/14/2022 Active 40 mg tablet mg) by mouth once daily. furosemide (LASIX) 40 Take 1 Tablet (40 90 Tablet 1 04/14/2022 Active mg tablet mg) by mouth once daily. levothyroxine Take 1 Tablet (50 90 Tablet 1 04/14/2022 Active (SYNTHROID) 50 mcg mcg) by mouth once tablet daily. pregabalin (LYRICA) Take 1 Capsule 180 Capsule 1 04/14/2022 Active 300 mg capsule (300 mg) by mouth two times daily. traZODone (DESYREL) Take 1.5 Tablets 90 Tablet 1 04/14/2022 Active 100 mg tablet (150 mg) by mouth at bedtime. dextroamphetamine-amp Take 1 Capsule (20 30 Capsule 0 04/14/20 22 Active hetamine (ADDERALL mg) by mouth every XR) 20 mg morning. Extended-Release capsule dextroamphetamine-amp Take 1 Capsule (20 30 Capsule 0 05/14/20 22 Active hetamine (ADDERALL mg) by mouth every XR) 20 mg morning. Extended-Release capsule dextroamphetamine-amp Take 1 Capsule (20 30 Capsule 0 05/14/20 22 Active hetamine (ADDERALL mg) by mouth every XR) 20 mg morning. Extended-Release capsule minocycline (MINOCIN) Take 1 Capsule 180 Capsule 0 04/29/2022 Active 100 mg (100 mg) by mouth capsuleIndications: 2 times daily. Acne vulgaris Active Problems Problem Noted Date Aspirin intolerance [...] Type Specialty Care Team Description 04/28/2022 Refill Rocael Conroy, DO Ref ill Request (Minocycline) 03/31/2022 Refill DrevRocael garcia, DO Ref ill Request (Pregabalin) 03/23/2022 Refill Rocael Conroy, DO Ref ill Request (Bupropion) from Last [...] of 2) COVID-19 vaccine series (3 - 04/04/2021 02/07/2021, 021 Booster for Moderna series) Mammogram [...] 06/22/2018 18-79 Medical Devices Implanted Type Area Casing Running Machine Tender Device Shelf Model / Identifier Expiration Serial / Lot Date Left, Size 3-4, 9mm Journey Ii Bcs Xl Pe A/P 48mm M/L 68 Mm Articular Insert Left: [employer] 01/20/2027 [id number] / Implanted: Qty: 1 on 04/05/2019 by French Neal MD at [facility] / [id number] Results Not on filefrom Last 3 Months Insurance Payer Benefit Plan / Subscriber ID Effective Dates Phone Addre ss Type Group BLUE CROSS BLUE PLUS OUT [id number] 2021-Present [address] [address] [place] [address] Advance Directives Latest Code Status on File Code Status Date Activated Date Inactivated Comments Full Code 04/07/2019 11:24 PM 04/09/2019 3:34 PM Code Status Discussion: Discussed Full Code 04/05/2019 6:12 AM 04/07/2019 10:02 PM Code Status Discussion: Discussed Care Teams Production Sanitizer Relationship Specialty Start Date End Date Jack Zavala MD PCP - General Family Practice 03/31/221999 [place] [address]
[2022-05-30] MEDS: HYDROmorphone 0.5 mg/0.5 ml inj IVP (12:37)
[2022-05-30] MEDS: ONDANSETRON 2 MG/ML inj 4 MG IVP (12:37)
[2022-05-30] MEDS: PROPOFOL 10 MG/ML INJ 200 MG IV (13:37)
--- NOTE | 2022-05-30 13:41 | CRLHL7_ITS ---
For Patients: As a result of the Century Cures Act, medical imaging exams and procedure reports are released immediately into your electronic medical record. You may view this report before your referring provider. If you have questions, please contact your health care provider. Indication: Postreduction left hip. Technique: Pelvis 1 views. Comparison: 05/30/2022. Findings/Impression: Dislocation of the left hip arthroplasty has been successfully reduced. Alignment is now normal. No fracture or other new abnormality. Dictated by Rambo Momin MD @ 05/30/2022 2:41:52 PM (Electronically Signed)
== END 2022-05-30 15:52 | disposition home or self-care (01) ==
PROVIDERS: Emergency Provider Emergency Medicine Emergency Medical Services; PCP Family Medicine
DX: M24.452 Recurrent dislocation, left hip (principal)
CPT/HCPCS: 27252; 72170; 96374; 96375; 99283; 99284; 99285; J1170; J2405; J2704

== ENCOUNTER 2022-06-02 15:27 | Outpatient (CLI) | payer BC, SELFPAY ==
--- OUTSIDE RECORDS SUMMARY | 2022-06-02 15:29 | XMS_ITS | Clinical Summary ---
:1965 Author Organization [facility] [place] [address] Care Team Providers Name Role Phone Jack Zavala MD Primary Care Provider [phone] Allergies Active Allergy Reactions Severity Noted [...] 06/22/2018 18-79 Medical Devices Implanted Type Area Hydropulper Operator Device Shelf Model / Identifier Expiration Serial / Lot Date Left, Size 3-4, 9mm Journey Ii Bcs Xl Pe A/P 48mm M/L 68 Mm Articular Insert Left: [employer] 01/20/2027 [id number] / Implanted: Qty: 1 on 04/05/2019 by French Neal MD at [facility] / [id number] Results Not on filefrom Last 3 Months Insurance Payer Benefit Plan / Subscriber ID Effective Dates Phone Addre ss Type Group BLUE CROSS BLUE PLUS OUT [id number] 2021-Present [address] [address] [place] [address] Advance Directives Latest Code Status on File Code Status Date Activated Date Inactivated Comments Full Code 04/07/2019 11:24 PM 04/09/2019 3:34 PM Code Status Discussion: Discussed Full Code 04/05/2019 6:12 AM 04/07/2019 10:02 PM Code Status Discussion: Discussed Care Teams Glass Beveller Relationship Specialty Start Date End Date Jack Zavala MD PCP - General Family Practice 03/31/22[address] [place] [address]
[2022-06-02 23:17] LABS: SARS PCR* Negative SARS-CoV-2 (Negative)
== END 2022-06-02 15:28 | disposition home or self-care (01) ==
LOC: FBOREF 15:27
PROVIDERS: PCP Family Medicine; Visit Provider Family Medicine
DX: Z20.822 Contact with and (suspected) exposure to COVID-19 (principal)
CPT/HCPCS: 87635

== ENCOUNTER 2022-06-04 10:39 | Outpatient (CLI) | payer BC, SELFPAY ==
--- OUTSIDE RECORDS SUMMARY | 2022-06-04 10:43 | XMS_ITS | Clinical Summary ---
:1965 Author Organization [employer] [facility] [place] [address] Care Team Providers Name Role Phone Jack Zavala MD Primary Care Provider [phone] Allergies Active Allergy Reactions Severity Noted [...] 06/22/2018 18-79 Medical Devices Implanted Type Area Law Examiner Device Shelf Model / Identifier Expiration Serial / Lot Date Left, Size 3-4, 9mm Journey Ii Bcs Xl Pe A/P 48mm M/L 68 Mm Articular Insert Left: [employer] 01/20/2027 [id number] / Implanted: Qty: 1 on 04/05/2019 by French Neal MD at [facility] / [id number] Results Not on filefrom Last 3 Months Insurance Payer Benefit Plan / Subscriber ID Effective Dates Phone Addre ss Type Group BLUE CROSS BLUE PLUS OUT [id number] 2021-Present [address] [address] [place] [address] Advance Directives Latest Code Status on File Code Status Date Activated Date Inactivated Comments Full Code 04/07/2019 11:24 PM 04/09/2019 3:34 PM Code Status Discussion: Discussed Full Code 04/05/2019 6:12 AM 04/07/2019 10:02 PM Code Status Discussion: Discussed Care Teams Photo Lab Manager Relationship Specialty Start Date End Date Jack Zavala MD PCP - General Family Practice 03/31/221999 [place] [address]
== END 2022-06-04 10:40 | disposition home or self-care (01) ==
PROVIDERS: PCP Family Medicine; Visit Provider Orthopaedic Surgery Sports Medicine
DX: Z01.818 Encounter for other preprocedural examination (principal)
CPT/HCPCS: 36415; 86850; 86900; 86901

== ENCOUNTER 2022-06-05 05:59 | Day surgery (SDC) | payer BC, SELFPAY ==
[2022-06-05] VITALS (29 sets, daily range): BP systolic 98–132; BP diastolic 62–85; PULSE 53–96; RESP 12–18; TEMP 36.3–37.1; O2SAT 96–100; BMI 30.6
[2022-06-05] MEDS: LACTATED RINGERS 1000 ML 1,000 ML 100 ML IV ×2 (06:35→09:45)
[2022-06-05] MEDS: SODIUM CHLORIDE 0.9 % (FLUSH) 10 ML SYRINGE IVF (06:35)
--- NOTE | 2022-06-05 06:49 | SUR.PREOP ---
patient states she is a fall risk and is scared to go home
[2022-06-05] MEDS: TRANEXAMIC ACID 100 MG/ML INJ 1000 MG IV (07:16)
--- NOTE | 2022-06-05 07:19 | SUR.PREOP ---
TIME?OUT:?0718 PT/Amada KOENIG RN/Scotty ORELLANA MDA?VERIFICATION?OF?SURGICAL?SITE,?PROCEDURE,?AND?CONSENT OBTAINED?PRIOR?TO?INVASIVE?PROCEDURE.
[2022-06-05] MEDS: fentaNYL 100 MCG/2 ML inj IVP (07:20)
[2022-06-05] MEDS: MIDAZOLAM HCL 1 MG/ML inj IVP (07:20)
--- NOTE | 2022-06-05 07:20 | CRLHL7_ITS ---
For Patients: As a result of the Cures Act, medical imaging exams and procedure reports are released immediately into your electronic medical record. You may view this report before your referring provider. If you have questions, please contact your health care provider. Indication: Hip replacement surgery Technique: AP hip fluoroscopic image. Fluoroscopy time 3.7 seconds. Findings/Impression: Hardware from a left total hip arthroplasty is in satisfactory position. Dictated by Jack Gray MD @ 06/05/2022 10:16:20 AM (Electronically Signed)
[2022-06-05] MEDS: OXYCODONE (CR) 10 MG TAB.ER.12H PO (07:25)
[2022-06-05] MEDS: CELECOXIB 200 MG CAPSULE PO ×2 (07:25→20:52)
[2022-06-05] MEDS: ACETAMINOPHEN 500 MG TABLET 1000 MG PO ×3 (07:25→23:52)
[2022-06-05] MEDS: CEFAZOLIN 2 GM in 0.9 % SODIUM CHLORIDE Mini-bag 100 ML IVPB ×3 (07:50→22:10)
--- NOTE | 2022-06-05 08:14 | W.ANESCHARGE ---
Anesthesia Charges Start Date/Time Anesthesia Start Date: 06/05/22 Anesthesia Start Time: 07:30 Stop Date/Time Anesthesia Stop Date: 06/05/22 Anesthesia Stop Time: 10:15 Summary Emergency: No
--- NOTE | 2022-06-05 09:24 | W.PM.NB ---
Nerve Block Nerve Block Time Seen by Provider: 07:20 Date Seen: 06/05/22 Type of block requested by surgeon for post-operative analgesia: KAREEM/LFCN Side: left Time out performed: Yes Verification of patient name: Yes Verification of date of : Yes Site marking: site marked Name of person performing procedure: Haile Continuous monitoring Was continuous monitoring of O2 sat, B/P, school lunch monitor, recorded every 15 minutes?: Yes Procedure Checklist: sterile prep, needles and gloves Ultrasound guided. Images saved: Yes Medications given in 5ml increments after negative aspiration: Ropivicaine %: 0.5 mL: 30 Needle gauge: 20 Decadron (mg): 10 Precedex (mcg): 25 Patient tolerated procedure well: Yes Additional comments: Needle noted below psoas tendon needle noted adjacent to LFCN Block Charges Block Charge (with Pro Fee): Other Periph Nerve Block Use of Ultrasound Machine for Block: Yes- US Guidance/pain block
--- NOTE | 2022-06-05 09:31 | PM.ORPRC ---
Procedure Note Date of procedure: 06/05/22 Procedure: PREOPERATIVE DIAGNOSIS: 1. Left hip recurrent instability following primary MARLON 01/2022 and revision for instability 02/2022 2. Left hip irregular scar POSTOPERATIVE DIAGNOSIS: 1. Left hip recurrent instability following primary MARLON 01/2022 and revision for instability 02/2022 2. Left hip irregular scar thickening and alignment. PROCEDURE: 1. Left total hip arthroplasty revision (including both femoral and acetabular components) 2. Left anterior hip scar excision with excisional debridement of skin and subcutaneous tissue (measured 11 cm in length less than 1 cm in width) 3. 26090 - intraoperative fluoroscopy up to 1 hour. SURGEON: Justin Arroyo MD. 3D ARTIST: Eldon Lopez PA-C; ELAINA Norwood - Of note, skilled assistants were critical for this case to aid in patient positioning, tissue retraction, limb manipulation/positioning, dislocation/relocation, patient safety, and closure. ANESTHESIA: Spinal anesthetic EBL: 400 IMPLANTS: DePuy J&J uncemented total hip Implants that were maintained include the Webster cup (size 48) and Actis stem-both uncemented. The hole eliminator was maintained as well. The previous ceramic head was removed and exchanged for a dual mobility design. 22 mm inner Beny 0 (+7 mm), and 41 mm outer diameter polyethylene. Dual mobility metal liner placed within the pinnacle cup as well fitting these 41 mm dual mobility head. COMPLICATIONS: None evident INDICATIONS: The patient is a pleasant 56-year-old female. She sustained a femoral head fracture 01/2022. She underwent a primary MARLON at that time due to the fracture. She sustained a postop dislocation event just 10 days following the surgery. This prompted a revision MARLON. At that time, we increased the length both on the acetabular and femoral side as well as provided +4, 10 degree face changing liner on the acetabulum. She did well for number of months. Unfortunately, she recently slipped on some dog P which resulted in her feeling ?like I tore something in my butt. She did not dislocate on that particular event, but just a few days later while crouching underneath the sink doing some remodeling work, while trying to get up she felt her hip dislocate. This was close reduced in the emergency department. Unfortunately, she had another dislocation event trying to tie her shoes some days later. Given the recurrent instability, another revision MARLON was indicated. FINDINGS: Scratch femoral head as be expected. Scratched femoral neck. Trunnion was without any scratches. The polyethylene liner did show some flattening over the superior lateral aspect likely where she dislocated or is resting in a dislocated state. Beyond that, scar tissue was seen as be expected. The TFL was clearly identified we were able to stay lateral to the sartorius and rectus musculature. DESCRIPTION OF PROCEDURE: Following a thorough discussion of risks, benefits, and alternatives consent was obtained and the left hip was marked. The patient was brought to the operating room and placed supine on the operating table. Induction of anesthesia was undertaken. 2 g IV Ancef and 1 g tranexamic acid was administered within 1 hr of incision preoperatively. Proper time-out was performed identifying proper patient, site, procedure. The operative extremity was prepped and draped in the appropriate sterile fashion using ChloraPrep after the patient was positioned on the [place] table with head in neutral alignment and all bony prominences well padded. C-arm fluoroscopic imaging was utilized to confirm proper pelvis rotation and position, and to get true AP films of both the contralateral left, and the affected left hip. This is for comparison. The previous scar was identified and seen to be thickened and irregular. The scar was excised including skin subcutaneous tissue measuring 11 cm in length by less than 1 cm in width. A combination of Metzenbaum scissors blunt dissection and Bovie cautery allowed us to identify the TFL. The overlying fascia was continuous with the scar tissue the subcutaneous layer in thus somewhat difficult to identify. However, the TFL had good muscle fiber integrity and appearance. This became more like toes. We were able to retract the TFL laterally. The sartorius and rectus retracted medially. The anterior capsular tissue was thickened scar measuring greater than 1.5 cm in thickness. Bovie cautery along with C-arm fluoroscopic imaging help this confirmed appropriate location and the capsule was released in an inverted T-fashion with the breath of the T distally near the calcar. This allowed us to elevate the flaps and tagged them for later repair. Retractors were placed inside the capsule. The femoral neck was visualized after releasing medially down to the lesser trochanter, along the saddle laterally, and up onto the acetabulum. After confirming improved tissue mobility, the hip was dislocated without incident or trauma. The head was seen to be scratched but again once this was removed with a tamp and mallet, the trunnion was inspected and found to be pristine. Attention was then turned to the acetabulum. The acetabulum was cleared of scar tissue around the perimeter completely. Retractors helped us visualize this completely. The femur was able to be adjusted/moved with the neck slid laterally and slightly proximally along the acetabulum with good protection with excellent visualization of the acetabulum. The polyethylene was removed. The hole eliminator temporarily removed and a trial liner placed for dual mobility purposes. The dual mobility head was then applied and the hip reduced. Was found have excellent stability both with traction as well as by taking the boot out of the medina and manipulating the hip. No recurrent dislocation could be achieved without significant traction as a typical anterior total hip requires. Thus, all trial implants removed, thorough irrigation normal saline was performed, and real implants were inserted. 1st the dual mobility liner was placed within the pinnacle cup. This was seen to be symmetric around the perimeter and impacted and solid in attachment. It we then applied the small head and dual mobility polyethylene head on the back table to engage these. This was then applied to the trunnion with excellent fixation achieved. The hip was relocated and placed through again extensive range of motion found to be stable. C-arm no other acute trauma to the acetabular or femoral components or surrounding bony structures. A 3 min Betadine soak was then performed, and thorough irrigation with normal saline followed. Closure of the capsule was performed with #1 PDS. Bleeding was confirmed to be controlled at this stage, and the TFL fascia was closed with #0 strata fix. Subcutaneous, and subcuticular closure was performed with 2-0 Vicryl and 4-0 Monocryl, respectively. Dressings were applied, and the patient was awoken from anesthesia and transferred the PACU in stable condition. A skilled assistant paralegal was critical for this case to aid in patient positioning, tissue retraction, proximal femur exposure, limb manipulation/positioning, dislocation/relocation, patient safety, and closure. PLAN: 1. Weight bear as tolerated operative extremity. 2. 23 hr perioperative antibiotics. 3. Ice. 4. PT/OT consults for ambulation assistance/mobility education. 5. Social work consult for discharge planning. 6. DVT prophylaxis with at SCDs, Sher Hose, and Xarelto x5 days followed by aspirin for a total of 1 month..
--- NOTE | 2022-06-05 09:42 | W.ANESCHARGE ---
Anesthesia Charges Start Date/Time Anesthesia Start Date: 06/05/22 Anesthesia Start Time: 07:30 Stop Date/Time Anesthesia Stop Date: 06/05/22 Anesthesia Stop Time: 10:15 Summary Emergency: No
--- NOTE | 2022-06-05 10:14 | CRLHL7_ITS ---
For Patients: As a result of the Cures Act, medical imaging exams and procedure reports are released immediately into your electronic medical record. You may view this report before your referring provider. If you have questions, please contact your health care provider. Indication: POST OP LEFT MARLON REVISION EXAM Technique: AP hip centered pelvis and lateral view left hip Findings/Impression: Hardware from a left total hip arthroplasty is in satisfactory position. Bone alignment is normal. No sign of acute fracture. Postop changes are within normal limits. Dictated by Jack Gray MD @ 06/05/2022 10:39:34 AM (Electronically Signed)
[2022-06-05] MEDS: fentaNYL 100 MCG/2 ML inj 50 MCG IVP (11:04)
[2022-06-05] MEDS: OXYCODONE 5 MG TABLET PO ×4 (14:07→23:53)
[2022-06-05] MEDS: hydrOXYzine pamoate 25 MG CAPSULE PO (14:08)
--- NOTE | 2022-06-05 14:49 | P.IMPN_ITS ---
Progress Note: A&P Assessment and plan (1) Major depressive disorder, recurrent, in full remission: Status: Acute (2) Insomnia: Status: Acute (3) Chronic constipation: Status: Acute (4) ADHD, predominantly inattentive type: Status: Acute (5) Fibromyalgia: Status: Acute (6) Hypothyroidism: Status: Chronic (7) CKD (chronic kidney disease), stage II: Status: Chronic (8) Factor V Leiden: Problem details: She had a DVT in my right hand 25 years ago after an IV for a surgery. She has had several surgeries in life with no bleeding issues. Her mother has the same factor 2 abnormality and has never had bleeding issues, but has had multiple PEs and DVTs. She is very vague and unclear about the details. I have [facility], but those go back only to 2017 and a note from 2018 mentions these similar vague details. 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 PT/PTT were checked prior to surgery 02/10/2022 and were both within normal limits. Recommend discharge on rivaroxaban 10 mg daily for 5 days followed by aspirin 81 mg b.i.d. Status: Chronic Plan 1. s/p Left total hip arthroplasty revision (including both femoral and acetabular components); Left anterior hip scar excision with excisional debridement of skin and subcutaneous tissue (measured 11 cm in length less than 1 cm in width); EBL 400cc; under spinal anesthesia 2. Hx of CKD 2 3. Hx of FV Leiden def 4. Hx of ADHD 5. Hx of Hypothyroidism 6. Hx of Depression 7. Hx of Insomnia 8. Hx of TBI Plan -pain control, diet, dvt ppx per surgery (Xarelto) -therapy evaluation -CBC, electrolytes in AM Time Spent With Patient Total time spent: 25 minutes Subjective Date Seen: 06/05/22 Interval history: patient doing well following surgery tolerating diet post operative hip pain 02/23 no nausea or vomiting denies chest pain Exam Narrative: Exam Narrative: Gen: NAD HEENT: NCAT EOMI MMM CV :RRR s1 s2 LCTAB Abd: Soft, nt, nd NeurO: alert, oriented moves extremities Const: Vital Signs, click to edit/add: Vital Signs - 24 hr 06/05/22 06:32 06/05/22 07:16 06/05/22 07:20 Temperature 97.8 F Pulse Rate 67 67 64 Pulse Rate [Pulse Oximeter] Respiratory Rate 18 18 18 Blood Pressure 116/69 121/85 125/80 Blood Pressure [Ri ght Arm] Pulse Oximetry 99 99 99 Oxygen Delivery Me thod Room Air Room Air Room Air 06/05/22 07:25 06/05/22 10:10 06/05/22 10:40 Temperature 98.0 F Pulse Rate 67 71 61 Pulse Rate [Pulse Oximeter] Respiratory Rate 18 16 12 Blood Pressure 119/70 108/68 118/70 Blood Pressure [Ri ght Arm] Pulse Oximetry 96 100 100 Oxygen Delivery Me thod Room Air Room Air Room Air 06/05/22 10:50 06/05/22 11:00 06/05/22 10:15 Temperature 98.0 F Pulse Rate 60 59 L 70 Pulse Rate [Pulse Oximeter] Respiratory Rate 14 12 16 Blood Pressure 113/76 127/77 105/67 Blood Pressure [Ri ght Arm] Pulse Oximetry 100 100 99 Oxygen Delivery Me thod Room Air Room Air Room Air 06/05/22 10:20 06/05/22 10:25 06/05/22 10:30 Temperature Pulse Rate 63 60 68 Pulse Rate [Pulse Oximeter] Respiratory Rate 16 14 14 Blood Pressure 114/63 107/82 98/64 Blood Pressure [Ri ght Arm] Pulse Oximetry 98 99 100 Oxygen Delivery Me thod Room Air Room Air Room Air 06/05/22 10:35 06/05/22 10:45 06/05/22 10:55 Temperature 97.3 F L 98.0 F Pulse Rate 66 67 61 Pulse Rate [Pulse Oximeter] Respiratory Rate 12 12 12 Blood Pressure 118/68 116/73 118/74 Blood Pressure [Ri ght Arm] Pulse Oximetry 100 100 100 Oxygen Delivery Me thod Room Air Room Air Room Air 06/05/22 11:05 06/05/22 11:16 06/05/22 11:18 Temperature 98.0 F 97.3 F L Pulse Rate 61 60 Pulse Rate [Pulse Oximeter] 59 L Respiratory Rate 12 16 16 Blood Pressure 125/81 Blood Pressure [Ri ght Arm] 119/73 132/79 Pulse Oximetry 100 100 Oxygen Delivery Me thod Room Air Room Air Nasal Cannula 06/05/22 11:45 06/05/22 12:00 06/05/22 12:15 Temperature 97.3 F L Pulse Rate Pulse Rate [Pulse Oximeter] 53 L 58 L 96 Respiratory Rate 16 16 16 Blood Pressure Blood Pressure [Ri ght Arm] 119/73 122/74 117/70 Pulse Oximetry 97 96 Oxygen Delivery Me thod Room Air Room Air Room Air 06/05/22 12:39 06/05/22 13:00 06/05/22 14:00 Temperature Pulse Rate Pulse Rate [Pulse Oximeter] 61 56 L 68 Respiratory Rate 16 16 Blood Pressure Blood [facility] 107/72 103/70 112/63 Pulse Oximetry 96 Oxygen Delivery Hi thod Room Air Room Air Room Air
--- NOTE | 2022-06-05 15:33 | PC.NURSE ---
Pt arrived via hospital bed with 2 RNs at 11:16 am to RM 258 s/p Left Knee revision with Dr. Arroyo. Initial assessment from PACU completed. Please see frequent post op VS. Pt initially rated her pain level 4 out of 10 which she stated is manageable, pt had just received 50mcg of fentanyl in PACU prior to arrival to med/surg. Pain decreased to 3 of 10. Pt slept well & when she woke up she was rating her left hip and back pain 6-7 out of 10. Treated pt with 10 mg of oxycodone and 25 mg of Vistaril. IV Ancef 2 grams given per post op routine. Advanced diet to regular. Pt tolerated chocolate milk and wheat toast w/o n/v. Pt assisted up with [address] [facility] and she was able to void 1000 cc. Pt stated pain improved after she was up and she felt relieved that she could urinate. Teds removed at 1335. Apple Mackey brought pt's old hip up to primary RN who delivered it to patient for her collection. Returned pt to bed and report given to Emily Alan RN for evening shift.
[2022-06-05] MEDS: LACTATED RINGERS 1000 ML 1,000 ML 75 ML IV (16:02)
[2022-06-05] MEDS: PREGABALIN 100 MG CAPSULE 300 MG PO (20:51)
[2022-06-05] MEDS: TRAZODONE HCL 50 MG TABLET 150 MG PO (20:51)
[2022-06-05] MEDS: SENNOSIDES 1 TAB TABLET 2 TAB PO (20:52)
[2022-06-05] MEDS: CITALOPRAM HYDROBROMIDE 20 MG TABLET 40 MG PO (20:52)
--- NOTE | 2022-06-05 22:47 | PC.NURSE ---
End of Shift: Patient pleasant and cooperative. Afebrile. Dressing to left hip C/D/I. CMS intact. Rating pain up to 4-5/10 and PRN Oxycodone given x2. Tolerating regular diet with no nausea. Up to chair and bathroom with 1 assist, walker and gait belt.
[2022-06-06] MEDS: OXYCODONE 5 MG TABLET PO ×3 (02:56→09:28)
[2022-06-06 03:00] VITALS: BP 122/64; PULSE 67; RESP 16; TEMP 36.6; O2SAT 97
--- NOTE | 2022-06-06 05:09 | PC.NURSE ---
[id number] PT resting well during night, rating pain to L hip 4/10 consistently, prn and scheduled pain meds administered. Ambulating to br with walker, gb, sba, tolerating activity well. Ice to hip throughout shift, Dressing C/D/I.
[2022-06-06] MEDS: ACETAMINOPHEN 500 MG TABLET 1000 MG PO (05:49)
[2022-06-06] MEDS: LEVOTHYROXINE 50 MCG TABLET PO (05:49)
[2022-06-06] MEDS: CEFAZOLIN 2 GM in 0.9 % SODIUM CHLORIDE Mini-bag 100 ML IVPB (05:50)
[2022-06-06 07:00] VITALS: BP 112/54; PULSE 69; O2SAT 100
[2022-06-06 07:30] LABS: Basophils Absolute Auto 0.02 K/uL (0.00-0.30); Basophils Percent Auto 0.2 % (0.0-3.0); Eosinophils Absolute Auto 0.11 K/uL (0.00-0.50); Eosinophils Percent Auto 1.3 % (0.0-7.0); Hematocrit 37.2 % (33.0-51.0); Hemoglobin* 12.6 gm/dL (12.0-16.0); Immature Granulocytes Abs Auto 0.02 K/uL (0.00-0.30); Mean Corpuscular HGB Conc 34 gm/dL (32-36); Mean Corpuscular Hemoglobin 31 pg (26-34); Mean Corpuscular Volume 91 fL (80-100); Monocytes Percent Auto 8.8 % (0.0-11.0); Neutrophils Percent Auto 73.5 % (42.0-72.0); Platelet Count* 164 K/uL (140-440); RDW Coefficient of Variation % 12.6 % (11.5-15.5); White Blood Count* 8.37 K/uL (4.50-11.00)
[2022-06-06 07:39] LABS: Potassium* 3.8 mmol/L (3.6-5.1); Sodium* 139 mmol/L (135-149)
[2022-06-06 07:41] LABS: Slide Review Reflex No
[2022-06-06 07:42] LABS: Blood Urea Nitrogen* 18 mg/dL (7-30); Creatinine* 0.8 mg/dL (0.5-1.5); Est. Creatinine Clearance* 78.27; Estimated Glomerular Filt Rate 86 ml/min
--- NOTE | 2022-06-06 08:31 | PM.ORPN ---
Subjective Subjective Date Seen: 06/06/22 Principal diagnosis: Status postop day 1 left total hip arthroplasty revision Interval history: Patient reports doing well. No acute events over night. Pain managed with scheduled /PRN medications and ice. DVT prophylaxis rivaroxaban, bilateral knee high Sher stockings, and SCDs. Denies fevers, chills, aches, N/V, CP, SOB/VASQUEZ, or lightheadedness. She says that compared to the previous 2 surgeries on the left hip, she feels the best after this one. Ortho Exam Narrative Exam Narrative: -Patient appears comfortable in recliner; no apparent acute distress -Alert and oriented times 3 -Operative hip mildly swollen; soft tissues supple; no obvious erythema. Ecchymosis minimal. Warmth appropriate -Surgical dressing clean, dry, intact; no obvious drainage, no erythematous streaking peripheral to the bandage -Bilateral calves soft and supple; no significant swelling, edema, tenderness, erythema, discoloration, warmth, or palpable cords -2+ DP/PT pulses, intact dermatomes and myotomes distally (5/5 strength) Const Vital Signs, click to edit/add: Vital Signs - 24 hr 06/05/22 10:10 06/05/22 10:40 06/05/22 10:50 Temperature 98.0 F Pulse Rate 71 61 60 Pulse Rate [Pulse Oximeter] Respiratory Rate 16 12 14 Blood Pressure 108/68 118/70 113/76 Blood Pressure [Right Arm] Pulse Oximetry 100 100 100 Oxygen Delivery Method Room Air Room Air Room Air 06/05/22 11:00 06/05/22 10:15 06/05/22 10:20 Temperature 98.0 F Pulse Rate 59 L 70 63 Pulse Rate [Pulse Oximeter] Respiratory Rate 12 16 16 Blood Pressure 127/77 105/67 114/63 Blood Pressure [Right Arm] Pulse Oximetry 100 99 98 Oxygen Delivery Method Room Air Room Air Room Air 06/05/22 10:25 06/05/22 10:30 06/05/22 10:35 Temperature Pulse Rate 60 68 66 Pulse Rate [Pulse Oximeter] Respiratory Rate 14 14 12 Blood Pressure 107/82 98/64 118/68 Blood Pressure [Right Arm] Pulse Oximetry 99 100 100 Oxygen Delivery Method Room Air Room Air Room Air 06/05/22 10:45 06/05/22 10:55 06/05/22 11:05 Temperature 97.3 F L 98.0 F 98.0 F Pulse Rate 67 61 61 Pulse Rate [Pulse Oximeter] Respiratory Rate 12 12 12 Blood Pressure 116/73 118/74 125/81 Blood Pressure [Right Arm] Pulse Oximetry 100 100 100 Oxygen Delivery Method Room Air Room Air Room Air 06/05/22 11:16 06/05/22 11:18 06/05/22 11:45 Temperature 97.3 F L Pulse Rate 60 Pulse Rate [Pulse Oximeter] 59 L 53 L Respiratory Rate 16 16 16 Blood Pressure Blood Pressure [Right Arm] 119/73 132/79 119/73 Pulse Oximetry 100 Oxygen Delivery Method Room Air Nasal Cannula Room Air 06/05/22 12:00 06/05/22 12:15 06/05/22 12:39 Temperature 97.3 F L Pulse Rate Pulse Rate [Pulse Oximeter] 58 L 96 61 Respiratory Rate 16 16 16 Blood Pressure Blood Pressure [Right Arm] 122/74 117/70 107/72 Pulse Oximetry 97 96 96 Oxygen Delivery Method Room Air Room Air Room Air 06/05/22 13:00 06/05/22 14:00 06/05/22 15:00 Temperature 98.2 F Pulse Rate Pulse Rate [Pulse Oximeter] 56 L 68 72 Respiratory Rate 16 16 Blood Pressure Blood Pressure [Right Arm] 103/70 112/63 125/62 Pulse Oximetry 98 Oxygen Delivery Method Room Air Room Air Room Air 06/05/22 16:00 06/05/22 17:00 06/05/22 19:00 Temperature 98.7 F 98.7 F Pulse Rate Pulse Rate [Pulse Oximeter] 74 68 67 Respiratory Rate 16 16 16 Blood Pressure Blood Pressure [Right Arm] 109/67 118/71 124/67 Pulse Oximetry 98 98 99 Oxygen Delivery Method Room Air Room Air Room Air 06/05/22 15:00 06/05/22 23:00 06/05/22 23:00 Temperature 98.2 F Pulse Rate Pulse Rate [Pulse Oximeter] 71 71 Respiratory Rate 16 16 16 Blood Pressure Blood Pressure [Right Arm] 127/68 Pulse Oximetry 98 Oxygen Delivery Method Room Air 06/06/22 03:00 06/06/22 07:00 Temperature 97.8 F Pulse Rate Pulse Rate [Pulse Oximeter] 67 69 Respiratory Rate 16 Blood Pressure Blood Pressure [Right Arm] 122/64 112/54 L Pulse Oximetry 97 100 Oxygen Delivery Method Room Air Room Air Assessment and Plan Assessment and plan (1) Status post revision of total hip: Problem details: POD 1: left, second revision; dual mobility system Status: Acute (2) Factor V Leiden: Problem details: She had a DVT in my right hand 25 years ago after an IV for a surgery. She has had several surgeries in life with no bleeding issues. Her mother has the same factor 2 abnormality and has never had bleeding issues, but has had multiple PEs and DVTs. She is very vague and unclear about the details. [facility], but those go back only to 2017 and a note from 2018 mentions these similar vague details. 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 PT/PTT were checked prior to surgery 02/10/2022 and were both within normal limits. Recommend discharge on rivaroxaban 10 mg daily for 5 days followed by aspirin 81 mg b.i.d. Status: Chronic (3) Major depressive disorder, recurrent, in full remission: Status: Acute (4) Insomnia: Status: Acute (5) Chronic constipation: Status: Acute (6) ADHD, predominantly inattentive type: Status: Acute (7) Fibromyalgia: Status: Acute (8) Hypothyroidism: Status: Chronic (9) CKD (chronic kidney disease), stage II: Status: Chronic Plan - Complete 23 hour perioperative antibiotics. - PT/OT consult for education and assistance. - Social work consult for discharge planning - Prescribed analgesics as needed - DVT prophylaxis: Rivaroxaban will transition to aspirin after 5 days of rivaroxaban, bilateral knee high Sher Hose stockings and SCDs - remain in the left lower extremity knee immobilizer for 1 month postop during activities and during sleep - Anticipation is for discharge to home with spouse today 06/06/2022 if the patient remains medically stable, pain is controlled, and they are safe with mobilization.
--- NOTE | 2022-06-06 08:36 | PM.DS1 ---
DS: Providers Provider Date Seen: 06/06/22 Date of admission: med/surg recovery 06/05/22 Primary care physician: Jack Zavala MD Consults: 06/05/22 11:18 Consult to Occupational Therapy [CONS] Routine Comment: Reason(s) for OT Consult:: ADLs Prior to Discharge Any Restrictions?:: No Restrictions Comment: Consult to Physical Therapy [CONS] Routine Comment: Ambulate in the billy today Reason(s) for PT Consult:: Evaluate and Treat Any Restrictions?:: No Restrictions Comment: Nursing Activity Consult to Physician [CONS] Routine Comment: Consulting Provider: Hospitalists Has provider been notified: No Consult to Supervisor Shipping Room [CONS] Routine Comment: Reason for Consult:: Discharge Planning Needs Attending Physician on discharge: Justin Arroyo MD Date of Discharge: 06/06/22 DS: Diagnosis Discharge Diagnosis (1) Status post revision of total hip: Status: Acute Problem details: POD 1: left, second revision; dual mobility system DS: Summary Hospital Course Hospital Course: The patient has a history of left hip osteoarthritis, primary, severe. She has undergone primary total hip arthroplasty in the past, and has had multiple episodes of dislocation. Due to the left hip instability, recommendation was to pursue surgical intervention for left hip arthroplasty revision. After appropriate preoperative evaluation, the patient underwent left hip arthroplasty revision, dual mobility system. Postoperatively given anticoagulation for deep vein thrombosis prophylaxis - Xarelto 5 days due to factor 5 Leiden disease, followed by aspirin. They progressed to PT/OT and were felt ready and prepared for discharge to home with appropriate pain medication and anticoagulation medications. They were discharged with knee immobilizer to prevent further dislocation that occurs typically with hip flexion and knee flexion to 90 ?. Status at Discharge Functional status at discharge: uses cane/walker Overall status at discharge: patient is progressing back to baseline Time Spent with Patient Time attestation: Total time spent providing and/or coordinating discharge services: Time spent: Less than 30 minutes Exam Const: Vital Signs, click to edit/add: Vital Signs - 24 hr 06/05/22 10:10 06/05/22 10:40 06/05/22 10:50 Temperature 98.0 F Pulse Rate 71 61 60 Pulse Rate [Pulse Oximeter] Respiratory Rate 16 12 14 Blood Pressure 108/68 118/70 113/76 Blood Pressure [Ri ght Arm] Pulse Oximetry 100 100 100 Oxygen Delivery Me thod Room Air Room Air Room Air 06/05/22 11:00 06/05/22 10:15 06/05/22 10:20 Temperature 98.0 F Pulse Rate 59 L 70 63 Pulse Rate [Pulse Oximeter] Respiratory Rate 12 16 16 Blood Pressure 127/77 105/67 114/63 Blood Pressure [Ri ght Arm] Pulse Oximetry 100 99 98 Oxygen Delivery Me thod Room Air Room Air Room Air 06/05/22 10:25 06/05/22 10:30 06/05/22 10:35 Temperature Pulse Rate 60 68 66 Pulse Rate [Pulse Oximeter] Respiratory Rate 14 14 12 Blood Pressure 107/82 98/64 118/68 Blood Pressure [Ri ght Arm] Pulse Oximetry 99 100 100 Oxygen Delivery Me thod Room Air Room Air Room Air 06/05/22 10:45 06/05/22 10:55 06/05/22 11:05 Temperature 97.3 F L 98.0 F 98.0 F Pulse Rate 67 61 61 Pulse Rate [Pulse Oximeter] Respiratory Rate 12 12 12 Blood Pressure 116/73 118/74 125/81 Blood Pressure [Ri ght Arm] Pulse Oximetry 100 100 100 Oxygen Delivery Me thod Room Air Room Air Room Air 06/05/22 11:16 06/05/22 11:18 06/05/22 11:45 Temperature 97.3 F L Pulse Rate 60 Pulse Rate [Pulse Oximeter] 59 L 53 L Respiratory Rate 16 16 16 Blood Pressure Blood Pressure [Ri ght Arm] 119/73 132/79 119/73 Pulse Oximetry 100 Oxygen Delivery Me thod Room Air Nasal Cannula Room Air 06/05/22 12:00 06/05/22 12:15 06/05/22 12:39 Temperature 97.3 F L Pulse Rate Pulse Rate [Pulse Oximeter] 58 L 96 61 Respiratory Rate 16 16 16 Blood Pressure Blood Pressure [Ri ght Arm] 122/74 117/70 107/72 Pulse Oximetry 97 96 96 Oxygen Delivery Me thod Room Air Room Air Room Air 06/05/22 13:00 06/05/22 14:00 06/05/22 15:00 Temperature 98.2 F Pulse Rate Pulse Rate [Pulse Oximeter] 56 L 68 72 Respiratory Rate 16 16 Blood Pressure Blood Pressure [Ri ght Arm] 103/70 112/63 125/62 Pulse Oximetry 98 Oxygen Delivery Me thod Room Air Room Air Room Air 06/05/22 16:00 06/05/22 17:00 06/05/22 19:00 Temperature 98.7 F 98.7 F Pulse Rate Pulse Rate [Pulse Oximeter] 74 68 67 Respiratory Rate 16 16 16 Blood Pressure Blood Pressure [Ri ght Arm] 109/67 118/71 124/67 Pulse Oximetry 98 98 99 Oxygen Delivery Me thod Room Air Room Air Room Air 06/05/22 15:00 06/05/22 23:00 06/05/22 23:00 Temperature 98.2 F Pulse Rate Pulse Rate [Pulse Oximeter] 71 71 Respiratory Rate 16 16 16 Blood Pressure Blood Pressure [Ri ght Arm] 127/68 Pulse Oximetry 98 Oxygen Delivery Me thod Room Air 06/06/22 03:00 06/06/22 07:00 Temperature 97.8 F Pulse Rate Pulse Rate [Pulse Oximeter] 67 69 Respiratory Rate 16 Blood Pressure Blood Pressure [Ri ght Arm] 122/64 112/54 L Pulse Oximetry 97 100 Oxygen Delivery Me thod Room Air Room Air DS: Data Data Completed and Pending Completed studies during hospitalization: Procedures Replacement of Left Hip Joint with Ceramic on Polyethylene Synthetic Substitute, Uncemented, Open Approach (02/10/22) Labs on day of discharge: Labs from last 24 hours 06/06/22 06/06/22 06:49 06:49 WBC 8.37 RBC 4.10 Hgb 12.6 Hct 37.2 MCV 91 MCH 31 MCHC 34 RDW Coeff of Corazon 12.6 Plt Count 164 Neut % (Auto) 73.5 H Lymph % (Auto) 16.0 L Whitley % (Auto) 8.8 Eos % (Auto) 1.3 Baso % (Auto) 0.2 Neut # (Auto) 6.20 Lymph # (Auto) 1.30 Whitley # (Auto) 0.70 Eos # (Auto) 0.11 Baso # (Auto) 0.02 Abs Immat Gran (auto) 0.02 Sodium 139 Potassium 3.8 BUN 18 Creatinine 0.8 Estimated Creat Clear 78.27 Estimated GFR 86 Discharge Plan Discharge Disposition: Home, Self-Care Discharging Surgeon: Justin Arroyo Follow-Up Appointment: 1 weel PO with PAC Prescriptions: New sennosides-docusate sodium [Senna-S] 8.6-50 mg tablet 1 - 4 tab-cap PO BID PRN (Reason: constipation) Qty: 60 0RF Rx Instructions: Hold medication if experiencing loose stools. aspirin 81 mg tablet,delayed release (DR/EC) 81 mg PO BID Qty: 50 0RF Rx Instructions: Medication to help prevent blood clots postoperatively; take TWICE daily. acetaminophen 500 mg capsule 500 - 1,000 mg PO Q6H MDD 4000mg PRNQty: 100 0RF oxycodone 5 mg tablet 2.5 - 5 mg PO Q4-6H MDD 6 PRN (Reason: pain) Qty: 42 0RF Rx Instructions: Take as needed for postop pain: 2.5mg mild pain, 5mg moderate-severe pain; wean as tolerated. rivaroxaban 10 mg tablet 10 mg PO DAILY Qty: 4 0RF Rx Instructions: Medication for deep vein clot prevention post surgery. Complete this medication before starting Aspirin. No Action bupropion HCl 300 mg tablet extended release 24 hr 300 mg PO DAILY Qty: 90 1RF trazodone 100 mg tablet 150 mg PO HS Qty: 90 1RF pregabalin 300 mg capsule 300 mg PO BID Qty: 180 1RF levothyroxine 50 mcg tablet 50 mcg PO DAILY Qty: 90 1RF furosemide 40 mg tablet 40 mg PO DAILY Qty: 90 1RF ascorbic acid (vitamin C) 500 mg tablet 500 mg PO DAILY bisacodyl 5 mg tablet,delayed release (DR/EC) 10 mg PO HS cholecalciferol (vitamin D3) 25 mcg (1,000 unit) capsule 25 mcg PO DAILY minocycline 100 mg capsule 100 mg PO Q12H lorazepam 1 mg tablet 1 mg PO TID PRN citalopram 40 mg tablet 40 mg PO HS dextroamphetamine-amphetamine 20 mg capsule,extended release 24hr 20 mg PO QAM PRN Activity Level: Activity as Tolerated, Weight Bearing as Tolerated, Don't flex hip more than 90 degrees, Wear Brace, Use Cane and Use Walker Activity Detail: knee immobilizer for 1 month from surgery Discharge Diet: Regular Patient Instructions: Acetaminophen (By mouth), Aspirin (By mouth), Oxycodone, Rapid Release (By mouth), Rivaroxaban (By mouth), Senna (By mouth), Surgical Site Infections (DC) Additional Instructions: Wound: ?Do not remove original dressing; we will remove this at first postop visit in 1 week. Only remove dressing if integrity is in question. ?No immersing wound in water; showering okay; light scrub with your hand and body soap, rinse, dab dry ?Sutures are under the skin, will dissolve; allow surgical glue to come off naturally; do not scrub the wound or apply ointments/lotions ?Call our office with any redness that streaks, excessive drainage from the wound, or wound gapping. Ice/Elevate: ?Ice as needed for swelling and discomfort (ice pack); elevate frequently above the heart ANTOINETTE socks: ?Wear for 1 month, remove for 1 hour 3 times per day ?These are frustrating to take on/off, but are important for blood clot prevention for 1 month after surgery Blood Clot Prevention (DVT): ?Medication: Rivaroxaban for total 5 days, and transition to 81 mg aspirin by mouth twice daily (total one month of protection). Driving: ?Do not drive while taking narcotic pain medication ?Anticipate 4-6 weeks no driving if operative leg is driving leg Dental: ?No elective dental work for 6 months post-op. If there is an urgent/emergent dental need, contact our office for an antibiotic prescription. Smoking/Alcohol: ?Do not smoke; do no drink alcohol especially when taking postoperative oral narcotic medication Seek Care from you Primary Care Provider if you experience the following issues in the postoperative phase and beyond: ?Bacterial infections such as: pneumonia, bacterial skin infection (cellulitis), UTI, high fever, chills unrelated to the operative body part - call your primary care physician urgently for treatment in hopes to protect your health and the metal implant. Referrals: ?PT, OT per patient preference - evaluate treat total hip arthroplasty protocol (gait training, ROM, ADLs) Follow up: ?Ortho surgeon follow-up in 6 weeks; repeat radiographs AP pelvis, cross-table lateral operative hip ?PA-C visit in 1 week *If there are any acute concerns regarding your surgery, please call our orthopedic clinic ([phone]) Forms: Work/Release Restrictions Follow-up: Jack Zavala MD [Primary Care Provider] - (Schedule appointment as needed) Eldon Lopez PA-C [Physician Wheel Press Clerk] - 06/13/22 10:30 am Discharge Orders: Discharge Order (Routine); Ordered 06/06/22 Ordered By: Eldon Lopez
[2022-06-06] MEDS: FUROSEMIDE 40 MG TABLET PO (09:25)
[2022-06-06] MEDS: buPROPion XL 150 MG TABLET 300 MG PO (09:27)
[2022-06-06] MEDS: CELECOXIB 200 MG CAPSULE PO (09:27)
[2022-06-06] MEDS: SENNOSIDES 1 TAB TABLET 2 TAB PO (09:28)
[2022-06-06] MEDS: RIVAROXABAN 10 MG TABLET PO (09:28)
--- NOTE | 2022-06-06 11:25 | P.DS_ITS ---
DS: Providers Provider Date Seen: 06/06/22 Primary care physician: Jack Zavala MD Admitting Clinician: Justin Hernandez MD Consults: PT, OT, Hospitalist Attending Physician on discharge: Justin Arroyo MD Date of Discharge: 06/06/22 DS: Diagnosis Discharge Diagnosis (1) Status post revision of total hip: Status: Acute Problem details: POD 1: left, second revision; dual mobility system DS: Summary Hospital Course Hospital Course: Kelly is a 56-year-old female who presented to the hospital on 06/05/2022 for an elective left total hip revision with orthopedic surgery it is. Patient did well postoperatively and comorbidities remained stable. No changes made to her home medications upon discharge. Prophylaxis and pain management per Orthopedic surgery team. Patient will be discharged home with routine follow-up with therapies, orthopedic surgery, and PCP. Time Spent with Patient Time attestation: Total time spent providing and/or coordinating discharge services: Time spent: Less than 30 minutes Exam Narrative: Exam Narrative: Alert and oriented, speaking in full sentences and nontoxic Const: Vital Signs, click to edit/add: Vital Signs - 24 hr 06/05/22 11:45 06/05/22 12:00 06/05/22 12:15 Temperature 97.3 F L Pulse Rate [Pulse Oximeter] 53 L 58 L 96 Respiratory Rate 16 16 16 Blood Pressure [Ri ght Arm] 119/73 122/74 117/70 Pulse Oximetry 97 96 Oxygen Delivery Me thod Room Air Room Air Room Air 06/05/22 12:39 06/05/22 13:00 06/05/22 14:00 Temperature Pulse Rate [Pulse Oximeter] 61 56 L 68 Respiratory Rate 16 16 Blood Pressure [Ri ght Arm] 107/72 103/70 112/63 Pulse Oximetry 96 Oxygen Delivery Me thod Room Air Room Air Room Air 06/05/22 15:00 06/05/22 16:00 06/05/22 17:00 Temperature 98.2 F 98.7 F Pulse Rate [Pulse Oximeter] 72 74 68 Respiratory Rate 16 16 16 Blood Pressure [Ri ght Arm] 125/62 109/67 118/71 Pulse Oximetry 98 98 98 Oxygen Delivery Me thod Room Air Room Air Room Air 06/05/22 19:00 06/05/22 15:00 06/05/22 23:00 Temperature 98.7 F Pulse Rate [Pulse Oximeter] 67 71 Respiratory Rate 16 16 16 Blood Pressure [Ri ght Arm] 124/67 Pulse Oximetry 99 Oxygen Delivery Me thod Room Air 06/05/22 23:00 06/06/22 03:00 06/06/22 07:00 Temperature 98.2 F 97.8 F Pulse Rate [Pulse Oximeter] 71 67 69 Respiratory Rate 16 16 Blood Pressure [Ri ght Arm] 127/68 122/64 112/54 L Pulse Oximetry 98 97 100 Oxygen Delivery Me thod Room Air Room Air Room Air DS: Data Data Completed and Pending Completed studies during hospitalization: Procedures Replacement of Left Hip Joint with Ceramic on Polyethylene Synthetic Substitute, Uncemented, Open Approach (02/10/22) Labs on day of discharge: Labs from last 24 hours 06/06/22 06/06/22 06:49 06:49 WBC 8.37 RBC 4.10 Hgb 12.6 Hct 37.2 MCV 91 MCH 31 MCHC 34 RDW Coeff of Corazon 12.6 Plt Count 164 Neut % (Auto) 73.5 H Lymph % (Auto) 16.0 L [place] % (Auto) 8.8 Eos % (Auto) 1.3 Baso % (Auto) 0.2 Neut # (Auto) 6.20 Lymph # (Auto) 1.30 [place] # (Auto) 0.70 Eos # (Auto) 0.11 Baso # (Auto) 0.02 Abs Immat Gran (auto) 0.02 Sodium 139 Potassium 3.8 BUN 18 Creatinine 0.8 Estimated Creat Clear 78.27 Estimated GFR 86 Discharge Plan Discharge Disposition: Home, Self-Care Discharging Surgeon: Justin Arroyo Follow-Up Appointment: 1 weel PO with PAC Prescriptions: New sennosides-docusate sodium [Senna-S] 8.6-50 mg tablet 1 - 4 tab-cap PO BID PRN (Reason: constipation) Qty: 60 0RF Rx Instructions: Hold medication if experiencing loose stools. aspirin 81 mg tablet,delayed release (DR/EC) 81 mg PO BID Qty: 50 0RF Rx Instructions: Medication to help prevent blood clots postoperatively; take TWICE daily. acetaminophen 500 mg capsule 500 - 1,000 mg PO Q6H MDD 4000mg PRNQty: 100 0RF oxycodone 5 mg tablet 2.5 - 5 mg PO Q4-6H MDD 6 PRN (Reason: pain) Qty: 42 0RF Rx Instructions: Take as needed for postop pain: 2.5mg mild pain, 5mg moderate-severe pain; wean as tolerated. rivaroxaban 10 mg tablet 10 mg PO DAILY Qty: 4 0RF Rx Instructions: Medication for deep vein clot prevention post surgery. Complete this medication before starting Aspirin. No Action bupropion HCl 300 mg tablet extended release 24 hr 300 mg PO DAILY Qty: 90 1RF trazodone 100 mg tablet 150 mg PO HS Qty: 90 1RF pregabalin 300 mg capsule 300 mg PO BID Qty: 180 1RF levothyroxine 50 mcg tablet 50 mcg PO DAILY Qty: 90 1RF furosemide 40 mg tablet 40 mg PO DAILY Qty: 90 1RF ascorbic acid (vitamin C) 500 mg tablet 500 mg PO DAILY bisacodyl 5 mg tablet,delayed release (DR/EC) 10 mg PO HS cholecalciferol (vitamin D3) 25 mcg (1,000 unit) capsule 25 mcg PO DAILY minocycline 100 mg capsule 100 mg PO Q12H lorazepam 1 mg tablet 1 mg PO TID PRN citalopram 40 mg tablet 40 mg PO HS dextroamphetamine-amphetamine 20 mg capsule,extended release 24hr 20 mg PO QAM PRN Activity Level: Activity as Tolerated, Weight Bearing as Tolerated, Don't flex hip more than 90 degrees, Wear Brace, Use Cane and Use Walker Activity Detail: knee immobilizer for 1 month from surgery Discharge Diet: Regular Patient Instructions: Acetaminophen (By mouth), Aspirin (By mouth), Oxycodone, Rapid Release (By mouth), Rivaroxaban (By mouth), Senna (By mouth), Surgical Site Infections (DC) Additional Instructions: Wound: ?Do not remove original dressing; we will remove this at first postop visit in 1 week. Only remove dressing if integrity is in question. ?No immersing wound in water; showering okay; light scrub with your hand and body soap, rinse, dab dry ?Sutures are under the skin, will dissolve; allow surgical glue to come off naturally; do not scrub the wound or apply ointments/lotions ?Call our office with any redness that streaks, excessive drainage from the wound, or wound gapping. Ice/Elevate: ?Ice as needed for swelling and discomfort (ice pack); elevate frequently above the heart ANTOINETTE socks: ?Wear for 1 month, remove for 1 hour 3 times per day ?These are frustrating to take on/off, but are important for blood clot prevention for 1 month after surgery Blood Clot Prevention (DVT): ?Medication: Rivaroxaban for total 5 days, and transition to 81 mg aspirin by mouth twice daily (total one month of protection). Driving: ?Do not drive while taking narcotic pain medication ?Anticipate 4-6 weeks no driving if operative leg is driving leg Dental: ?No elective dental work for 6 months post-op. If there is an urgent/emergent dental need, contact our office for an antibiotic prescription. Smoking/Alcohol: ?Do not smoke; do no drink alcohol especially when taking postoperative oral narcotic medication Seek Care from you Primary Care Provider if you experience the following issues in the postoperative phase and beyond: ?Bacterial infections such as: pneumonia, bacterial skin infection (cellulitis), UTI, high fever, chills unrelated to the operative body part - call your primary care physician urgently for treatment in hopes to protect your health and the metal implant. Referrals: ?PT, OT per patient preference - evaluate treat total hip arthroplasty protocol (gait training, ROM, ADLs) Follow up: ?Ortho surgeon follow-up in 6 weeks; repeat radiographs AP pelvis, cross-table lateral operative hip ?PA-Stephen visit in 1 week *If there are any acute concerns regarding your surgery, please call our orthopedic clinic ([phone]) Forms: Work/Release Restrictions Follow-up: Jack Zavala MD [Primary Care Provider] - (Schedule appointment as needed) Eldon Lopez PA-C [Physician Power Technician] - 06/13/22 10:30 am Discharge Orders: Discharge Order (Routine); Ordered 06/06/22 Ordered By: Eldon Lopez
--- NOTE | 2022-06-06 12:04 | PC.NURSE ---
Pt eval by Eldon potts PA, OT, PT and myself. Pt verbalized understanding of d/c diagnosis, home meds, pain management, f/up appts and sx to report urgently to MD. Discharged via w/c to own home with spouse Ronnie @ 11:30 am.
--- NOTE | 2022-06-06 12:06 | PC.NURSE ---
Pt had 1120 cc in orally and 600 cc out in clear yellow urine.
== END 2022-06-06 11:30 | disposition home or self-care (01) ==
LOC: OR 06:04 → MEDSURG 11:24
PROVIDERS: PCP Family Medicine; Visit Provider Orthopaedic Surgery Sports Medicine
PROC: (CPT 27132; principal; 2022-06-05 07:30)
DX: T84.021A Dislocation of internal left hip prosthesis, initial encounter (principal); M25.352 Other instability, left hip; L90.5 Scar conditions and fibrosis of skin; F33.42 Major depressive disorder, recurrent, in full remission; G47.00 Insomnia, unspecified; K59.09 Other constipation; F90.0 Attention-deficit hyperactivity disorder, predominantly inattentive type; M79.7 Fibromyalgia; E03.9 Hypothyroidism, unspecified; N18.2 Chronic kidney disease, stage 2 (mild); D68.51 Activated protein C resistance; Z86.718 Personal history of other venous thrombosis and embolism
CPT/HCPCS: 27132; 11406; 01214; 36415; 64450; 73501; 76000; 76942; 82565; 84132; 84295; 84520; 85025; 97110; 97116; 97161; 97165; 97535; A9270; J0690; J2250; J2370; J2704; J3010; J7120

== ENCOUNTER 2022-06-21 17:01 | Outpatient (CLI) | payer BC, SELFPAY ==
--- OUTSIDE RECORDS SUMMARY | 2022-07-21 06:03 | XMS_ITS | Clinical Summary ---
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 Device Shelf Model / Identifier Expiration Serial / Lot Date Left, Size 3-4, 9mm Journey Ii Bcs Xl Pe A/P 48mm M/L 68 Mm Articular Insert Left: [employer] 01/20/2027 [id number] / Implanted: Qty: 1 on 04/05/2019 by French Neal MD at [facility] / [id number] Results Not on filefrom Last 3 Months Insurance Payer Benefit Plan / Subscriber ID Effective Dates Phone Addre ss Type Group BLUE CROSS BLUE PLUS OUT [id number] 2021-Present [address] [address] [place] [address] Advance Directives Latest Code Status on File Code Status Date Activated Date Inactivated Comments Full Code 04/07/2019 11:24 PM 04/09/2019 3:34 PM Code Status Discussion: Discussed Full Code 04/05/2019 6:12 AM 04/07/2019 10:02 PM Code Status Discussion: Discussed Care Teams Cryptologic Support Specialist Relationship Specialty Start Date End Date Jack Zavala MD PCP - General Family Practice 03/31/221999 [place] [address]
== END 2022-06-21 17:02 | disposition home or self-care (01) ==
LOC: AMB 07-21 06:02
PROVIDERS: PCP Family Medicine; Visit Provider Emergency Medicine Emergency Medical Services
DX: R55 Syncope and collapse (principal); R51.9 Headache, unspecified; M54.9 Dorsalgia, unspecified
CPT/HCPCS: A0425; A0427

== ENCOUNTER 2022-06-21 17:44 | Emergency (ER) | payer BC, SELFPAY ==
[2022-06-21] VITALS (28 sets, daily range): BP systolic 112–128; BP diastolic 61–83; PULSE 65–78; RESP 16–18; TEMP 36; O2SAT 96–100; BMI 30.4
--- NOTE | 2022-06-21 18:09 | CRLHL7_ITS ---
For Patients: As a result of the Cures Act, medical imaging exams and procedure reports are released immediately into your electronic medical record. You may view this report before your referring provider. If you have questions, please contact your health care provider. INDICATION: Syncope. Severe posterior headache. History of traumatic brain injury. History of factor 5 Leiden. TECHNIQUE: CT head without i.v. contrast. COMPARISON: Comparison head CT dated 02/13/2022 FINDINGS: CSF spaces: Within normal limits for age. Brain parenchyma: The brain parenchyma is normal in appearance with preservation of the dunn-white differentiation. No sign of mass, hemorrhage, or midline shift seen. Skull base and calvarium: The visualized paranasal sinuses are well aerated. The mastoid air cells are clear. The visualized orbits are grossly unremarkable. No skull fractures are seen. IMPRESSION: 1. No evidence of acute infarction, intracranial hemorrhage, or mass effect seen. Dictated by Beny Meeks MD @ 06/21/2022 7:12:30 PM Please note that all CT scans at this facility use dose modulation, iterative reconstruction, and/or weight-based dosing when appropriate to reduce radiation dose to as low as reasonably achievable. Dictated by: Beny Meeks MD @ 06/21/2022 19:12:35 (Electronically Signed)
--- NOTE | 2022-06-21 18:10 | ED.SYNCOPE ---
HPI - Syncope General Chief Complaint: Syncope/Fainted Stated Complaint: Hypotensive, back pain Time Seen by Provider: 06/21/22 17:52 History of Present Illness HPI narrative: 56-year-old woman presenting to the emergency department via EMS after syncopal event. Noted to be hypotensive on the scene by EMS at 70 systolic. Unclear duration. Does not sound as though there was head trauma. Was reportedly seated at the time. She arrives here with complaint of bad posterior headache and feeling numb in her extremities. I appreciate her to be generally dunn in appearance. She is not having any nausea apparently did not vomit. As she goes to sit up she is thinking maybe she just ate too much. No precedent arrhythmia/palpitations or chest pain. She also notes that has had syncopal events after procedures or surgeries before. Reports also having seizure history but does not have a diagnosis of epilepsy nor take medications for this. She does use marijuana daily and had smoked marijuana earlier today. Has been seen most recently with recurrent visits through this emergency department for left hip dislocations. Two weeks ago did have surgery for this again. She is still wearing a knee immobilizer on the left leg. She has not had any fever cough cold symptoms. Does not endorse dysuria. 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 She is not having any chest pain. No sense of palpitations. This proves to be a somewhat confusing interview. History also of TBI. She does note a lot of stress lately with illness of parents and becomes tearful. Also with these recurrent surgeries hand life has been rather stressful. Later questioning on reassessment she has had a chance to talk with her . Apparently was seated at the table slumped forward onto her friend. went to attend to her lifted her head up and saw that she was not breathing. Apparently came to shortly but was still little bit out of it requesting water. She says prior to this happening hand started to tremor. She had not been taking regular opiates but did taken oxycodone earlier today and shortly after smoked marijuana. She describes thinking that she was quite stoned around time of this event which occurred shortly after oxycodone plus marijuana. Recalls that her entire back had been hurting quite a bit earlier today. Not localized flank pain. She has not had dysuria or frequency. She said urinary tract infections in the past she starts to get an inkling of it and then the next day is quite bad. She does not have any of those symptoms. Again recalls this is happen some years ago and describes having passed out and began shaking all over cramping in screaming apparently in pain twice in 2 days for extended period of time; however was alert during this episode. Also around this time though describes an orthostatic precipitant where she ?passed out cold? and started shaking all over. She notes that her father also has these syncopal and shaking events of unclear etiology. Later did speak with who was there to witness this event. He had been standing behind her. She slumped forward onto a friend. He went to to tend to her. Eyes were rolled back in her head. He believes that she was out for maybe 5 seconds. She seems to have stopped breathing for 3 seconds. He does endorse the left hand twitching a little bit before this event. Was then awake and continued to come to more and more upon which time EMS arrived. notes that he did not need see these prior shaking events as they were in the hospital but describes them as thought to be associated with medications and orthostatics. Related Data Home Medications Medication Instructions Recorded Confirmed ascorbic acid (vitamin C) 500 mg 500 mg PO DAILY 02/11/22 06/13/22 tablet bisacodyl 5 mg tablet,delayed 10 mg PO HS 02/11/22 06/13/22 release cholecalciferol (vitamin D3) 25 25 mcg PO DAILY 02/11/22 06/13/22 mcg (1,000 unit) capsule lorazepam 1 mg tablet 1 mg PO TID PRN 02/11/22 06/13/22 minocycline 100 mg capsule 100 mg PO Q12H 02/11/22 06/13/22 citalopram 40 mg tablet 40 mg PO HS 06/04/22 06/13/22 dextroamphetamine-amphetamine ER 20 mg PO QAM PRN 06/04/22 06/13/22 20 mg 24hr capsule,extend release Previous Rx's Medication Instructions Recorded bupropion HCl 300 mg 24 hr tablet, 300 mg PO DAILY #90 tabs 04/14/22 extended release furosemide 40 mg tablet 40 mg PO DAILY #90 tabs 04/14/22 levothyroxine 50 mcg tablet 50 mcg PO DAILY #90 tabs 04/14/22 pregabalin 300 mg capsule 300 mg PO BID #180 caps 04/14/22 trazodone 100 mg tablet 150 mg PO HS #90 tabs 04/14/22 acetaminophen 500 mg capsule 500 - 1,000 mg PO Q6H PRN #100 caps 06/06/22 aspirin 81 mg tablet,delayed 81 mg PO BID #50 tabs 06/06/22 release oxycodone 5 mg tablet 2.5 - 5 mg PO Q4-6H PRN pain #42 06/06/22 tabs sennosides 8.6 mg-docusate sodium 1 - 4 tab-cap PO BID PRN 06/06/22 50 mg tablet (Senna-S) constipation #60 tabs Allergies Allergy/AdvReac Type Severity Reaction Status Date / Time bee venom protein (honey bee) Allergy Severe Anaphylaxis Verified 06/13/22 10:31 Review of Systems Status of ROS: Reports: 10 or more systems reviewed and unremarkable except as noted in History and below PFSH PFS Medical History ADHD, predominantly inattentive type Chronic constipation CKD (chronic kidney disease), stage II Colon polyps Factor V Leiden Family history of clotting disorder Fibromyalgia Fracture of head of left femur Generalized anxiety disorder Hypothyroidism Insomnia Neurofibromatosis Postoperative deep vein thrombosis (DVT) Recurrent major depression Syncope Traumatic brain injury Surgical History History of arthroplasty of left knee History of bunionectomy History of total abdominal hysterectomy and bilateral salpingo-oophorectomy Hx laparoscopic cholecystectomy Hx of appendectomy Hx of blepharoplasty Hx of section Hx of LASIK S/P tendon repair S/P tendon repair Status post left hip replacement Status post revision of total hip Family History Mother Coagulation disorder Depression Osteoarthritis Rheumatoid arthritis Daughter Depression Rheumatoid arthritis Maternal Grandmother Depression Osteoarthritis Thyroid disease Paternal Grandmother Depression Diabetes Social History Narrative: , nonsmoker, full code Highest level of school completed/degree received: Associate degree: academic program Smoking Status: Never smoker Do you use any of these nicotine containing products: None Second hand tobacco smoke exposure: No How often do you have a drink containing alcohol: monthly or less Alcohol type: hard liquor How many standard drinks containing alcohol do you have on a typical day: 1 or 2 How often do you have six or more drinks on one occasion: Never AUDIT-C Alcohol total score: 1 Non-prescribed substance use: marijuana (any form) Caffeine: Yes Little interest or pleasure in doing things: not at all Feeling down, depressed, or hopeless: several days Are you using contraception or practicing any form of control: No service: No Exam Narrative: Exam Narrative: Pleasant. A little distant or tired on initial exam. Skin looked rather ibarra generally on evaluation. By the end of my conversation with Ms. Mcgee, color had already improved. She is breathing easily. Again appears tired. Skin is warm and dry initially and dunn though appears well perfused. Other than the left leg with the knee immobilizer on it and recently postop appears to be moving all extremities out difficulty. Notes some subjective numbness or tingling at her fingers of both hands and her feet. No appreciable lower extremity edema. Left hip in question has without erythematous changes or discrete swelling. Cranial nerves 2-12 look to be intact. No nystagmus. She has an unusual contact or lens in the right eye status post LASIK that can be adjusted for refraction reportedly. Lungs are clear with equal expansion excursion. CV RRR no murmur rub or gallop appreciated. Abdomen is soft nontender. Neck is supple. Quite sore intense in the bilateral trapezius muscular in paracervical muscles which I think is somewhat related to her headache. Const: Vital Signs, click to edit/add: Vital Signs - 24 hr 06/21/22 17:54 06/21/22 18:06 06/21/22 17:54 Temperature 96.8 F L Pulse Rate 69 Pulse Rate [Right Pulse Oximeter] 70 Respiratory Rate 18 Blood Pressure 128/74 Blood Pressure [Ri ght Upper Arm] 128/74 Pulse Oximetry 96 98 99 Oxygen Delivery Me thod Room Air 06/21/22 17:55 06/21/22 17:56 06/21/22 18:00 Temperature Pulse Rate 71 70 71 Pulse Rate [Right Pulse Oximeter] Respiratory Rate Blood Pressure 126/72 Blood Pressure [Ri ght Upper Arm] Pulse Oximetry 99 99 99 Oxygen Delivery Me thod 06/21/22 18:01 06/21/22 18:15 06/21/22 18:16 Temperature Pulse Rate 72 70 Pulse Rate [Right Pulse Oximeter] Respiratory Rate Blood Pressure 116/75 114/61 Blood Pressure [Ri ght Upper Arm] Pulse Oximetry 99 97 Oxygen Delivery Me thod 06/21/22 18:30 06/21/22 18:45 06/21/22 19:03 Temperature Pulse Rate 69 69 78 Pulse Rate [Right Pulse Oximeter] Respiratory Rate Blood Pressure Blood Pressure [Ri ght Upper Arm] Pulse Oximetry 100 99 100 Oxygen Delivery Me thod 06/21/22 19:04 06/21/22 19:15 06/21/22 19:19 Temperature Pulse Rate 77 77 75 Pulse Rate [Right Pulse Oximeter] Respiratory Rate Blood Pressure Blood Pressure [Ri ght Upper Arm] Pulse Oximetry 99 100 99 Oxygen Delivery Me thod 06/21/22 19:21 06/21/22 19:22 06/21/22 19:30 Temperature Pulse Rate 76 78 69 Pulse Rate [Right Pulse Oximeter] Respiratory Rate Blood Pressure 114/83 Blood Pressure [Ri ght Upper Arm] Pulse Oximetry 100 100 97 Oxygen Delivery Me thod 06/21/22 19:31 06/21/22 19:45 06/21/22 20:00 Temperature Pulse Rate 72 77 74 Pulse Rate [Right Pulse Oximeter] Respiratory Rate Blood Pressure 123/76 Blood Pressure [Ri ght Upper Arm] Pulse Oximetry 99 99 98 Oxygen Delivery Me thod 06/21/22 20:01 06/21/22 20:02 06/21/22 20:15 Temperature Pulse Rate 76 74 76 Pulse Rate [Right Pulse Oximeter] Respiratory Rate Blood Pressure 112/80 Blood Pressure [Ri ght Upper Arm] Pulse Oximetry 98 99 99 Oxygen Delivery Me thod 06/21/22 20:39 06/21/22 20:40 06/21/22 20:45 Temperature Pulse Rate 65 68 67 Pulse Rate [Right Pulse Oximeter] Respiratory Rate Blood Pressure 122/78 Blood Pressure [Ri ght Upper Arm] Pulse Oximetry 100 100 99 Oxygen Delivery Me thod Documenting provider has reviewed patient's vital signs: yes Course Course Hospital Course: Has had a 500ml bag of normal saline hanging via EMS. 250 mL in and pressure already on recheck are in the 120s. Reevaluation(s) Reevaluation #1: Numbness is present still fingertips. No longer in feet. Feels better. Reevaluation #2: Overall noting improvement and requesting departure home noting that her ride is coming. Vital Signs Vital signs: Initial Vital Signs Temperature 96.8 F L 06/21/22 17:54 Temperature Source Temporal Artery Scan 06/21/22 17:54 Pulse Rate 69 06/21/22 17:54 Respiratory Rate 18 06/21/22 17:54 Blood Pressure 128/74 06/21/22 17:54 Blood Pressure Mean 92 06/21/22 17:54 Blood Pressure Position Sitting 06/21/22 17:54 Pulse Oximetry 96 06/21/22 17:54 Oxygen Delivery Method 06/21/22 17:54 Vital Signs Temperature 96.8 F L 06/21/22 17:54 Pulse Rate 69 06/21/22 17:54 Respiratory Rate 18 06/21/22 17:54 Blood Pressure 128/74 06/21/22 17:54 Pulse Oximetry 96 06/21/22 17:54 Oxygen Delivery Method 06/21/22 17:54 Temperature 96.8 F L 06/21/22 17:54 Pulse Rate 67 06/21/22 20:45 Respiratory Rate 18 06/21/22 17:54 Blood Pressure 122/78 06/21/22 20:40 Pulse Oximetry 99 06/21/22 20:45 Oxygen Delivery Method 06/21/22 17:54 MDM - Syncope MDM Narrative Medical decision making narrative: I did review following images -- CT head is without acute abnormality and IV contrasted chest PE protocol is without pulmonary embolus or other concerning findings. Suspect maybe a combination of factors playing a role here but does not appear to be cardiac in etiology. I did offer further conversation/follow-up with Neurology but she would prefer not. Medical Records Attestation: I reviewed the patient's medical records. Lab Data Attestation: I reviewed the patient's lab results. Labs: Lab Results 06/21/22 06/21/22 06/21/22 Range/Units 17:50 17:50 17:50 WBC 7.26 (4.50-11.00) K/uL RBC 4.59 (4.00-5.20) m/uL Hgb 14.1 (12.0-16.0) gm/dL Hct 41.6 (33.0-51.0) % MCV 91 (80-100) fL MCH 31 (26-34) pg MCHC 34 (32-36) gm/dL RDW Coeff of Coraz[place] 13.0 (11.5-15.5) % Plt Count 224 (140-440) K/uL Neut % (Auto) 53.9 (42.0-72.0) % Lymph % (Auto) 34.6 (20-44) % [place] % (Auto) 6.3 (0.0-11.0) % Eos % (Auto) 4.0 (0.0-7.0) % Baso % (Auto) 0.8 (0.0-3.0) % Neut # (Auto) 3.91 (1.7-7.0) K/uL Lymph # (Auto) 2.51 (0.90-2.90) K/uL [place] # (Auto) 0.50 (0.00-0.90) K/UL Eos # (Auto) 0.29 (0.00-0.50) K/uL Baso # (Auto) 0.06 (0.00-0.30) K/uL Abs Immat Gran (auto) 0.03 (0.00-0.30) K/uL Imm/Tot Granulo (auto) 0.4 % D-Dimer Quant (PE/DVT) 1.90 H (0.00-0.50) ug/ml Sodium 138 (135-149) mmol/L Potassium 4.0 (3.6-5.1) mmol/L Chloride 102 (96-114) mmol/L Carbon Dioxide 23 (20-32) mmol/L BUN 20 (7-30) mg/dL Creatinine 1.4 (0.5-1.5) mg/dL Estimated Creat Clear 44.72 Estimated GFR 44 ml/min Glucose 129 H (60-115) mg/dL Calcium 9.0 (8.4-10.6) mg/dL Magnesium (1.5-2.6) mg/dL Total Bilirubin (0.1-1.5) mg/dL Direct Bilirubin (0.0-0.5) mg/dL AST (12-35) U/L ALT (4-35) U/L Alkaline Phosphatase (40-150) U/L Troponin I (0.01-0.04) ng/mL C-Reactive Protein 0.5 (0.5-1.0) mg/dL NT-Pro-B Natriuret Pep (0-125) PG/mL Total Protein (6.0-8.3) g/dL Albumin (3.3-5.0) g/dL Urine Color (Yellow) Urine Appearance (Clear) Urine pH (5.0-8.5) Ur Specific [place] (1.000-1.030) Urine Protein (Negative) Urine Glucose (UA) (Negative) Urine Ketones (Negative) Urine Blood (Negative) Urine Nitrite (Negative) Urine Bilirubin (Negative) Urine Urobilinogen (0.2-1.0) Ur Leukocyte Esterase (Negative) Urine RBC (0-2) Urine WBC (0-5) Ur Squamous Epith Cells (None-Few) Urine Bacteria (None) Urine Opiates Screen (Negative) Ur Oxycodone Screen (Negative) Urine Methadone Screen (Negative) Ur Propoxyphene Screen (Negative) Ur Barbiturates Screen (Negative) U Tricyclic Antidepress (Negative) Ur Phencyclidine Scrn (Negative) Ur Amphetamines Screen (Negative) U Methamphetamines Scrn (Negative) U Benzodiazepines Scrn (Negative) Urine Cocaine Screen (Negative) U Marijuana (THC) Screen (Negative) Ur Drug Screen Comment Ethyl Alcohol (0.01-0.03) % SARS-CoV-2 (PCR) (Negative) Influenza Type A (PCR) (Negative) Influenza Type B (PCR) (Negative) RSV (PCR) (Negative) POC Troponin I (0.01-0.04) ng/ml 06/21/22 06/21/22 06/21/22 Range/Units 17:50 18:07 20:38 WBC (4.50-11.00) K/uL RBC (4.00-5.20) m/uL Hgb (12.0-16.0) gm/dL Hct (33.0-51.0) % MCV (80-100) fL MCH (26-34) pg MCHC (32-36) gm/dL RDW Coeff of Corazon (11.5-15.5) % Plt Count (140-440) K/uL Neut % (Auto) (42.0-72.0) % Lymph % (Auto) (20-44) % [place] % (Auto) (0.0-11.0) % Eos % (Auto) (0.0-7.0) % Baso % (Auto) (0.0-3.0) % Neut # (Auto) (1.7-7.0) K/uL Lymph # (Auto) (0.90-2.90) K/uL [place] # (Auto) (0.00-0.90) K/UL Eos # (Auto) (0.00-0.50) K/uL Baso # (Auto) (0.00-0.30) K/uL Abs Immat Gran (auto) (0.00-0.30) K/uL Imm/Tot Granulo (auto) % D-Dimer Quant (PE/DVT) (0.00-0.50) ug/ml Sodium (135-149) mmol/L Potassium (3.6-5.1) mmol/L Chloride (96-114) mmol/L Carbon Dioxide (20-32) mmol/L BUN (7-30) mg/dL Creatinine (0.5-1.5) mg/dL Estimated Creat Clear Estimated GFR ml/min Glucose (60-115) mg/dL Calcium (8.4-10.6) mg/dL Magnesium 1.8 (1.5-2.6) mg/dL Total Bilirubin 0.5 (0.1-1.5) mg/dL Direct Bilirubin 0.2 (0.0-0.5) mg/dL AST 31 (12-35) U/L ALT 25 (4-35) U/L Alkaline Phosphatase 100 (40-150) U/L Troponin I < 0.01 L (0.01-0.04) ng/mL C-Reactive Protein (0.5-1.0) mg/dL NT-Pro-B Natriuret Pep 397 H (0-125) PG/mL Total Protein 6.9 (6.0-8.3) g/dL Albumin 4.1 (3.3-5.0) g/dL Urine Color (Yellow) Urine Appearance (Clear) Urine pH (5.0-8.5) Ur Specific [place] (1.000-1.030) Urine Protein (Negative) Urine Glucose (UA) (Negative) Urine Ketones (Negative) Urine Blood (Negative) Urine Nitrite (Negative) Urine Bilirubin (Negative) Urine Urobilinogen (0.2-1.0) Ur Leukocyte Esterase (Negative) Urine RBC (0-2) Urine WBC (0-5) Ur Squamous Epith Cells (None-Few) Urine Bacteria (None) Urine Opiates Screen Negative (Negative) Ur Oxycodone Screen Negative (Negative) Urine Methadone Screen Negative (Negative) Ur Propoxyphene Screen Negative (Negative) Ur Barbiturates Screen Negative (Negative) U Tricyclic Antidepress Negative (Negative) Ur Phencyclidine Scrn Negative (Negative) Ur Amphetamines Screen Negative (Negative) U Methamphetamines Scrn Negative (Negative) U Benzodiazepines Scrn Negative (Negative) Urine Cocaine Screen Negative (Negative) U Marijuana (THC) Screen POSITIVE A* (Negative) Ur Drug Screen Comment See Note Ethyl Alcohol < 0.01 L (0.01-0.03) % SARS-CoV-2 (PCR) Negative SARS-CoV-2 (Negative) Influenza Type A (PCR) Negative PCR FLU A (Negative) Influenza Type B (PCR) Negative PCR FLU B (Negative) RSV (PCR) Negative PCR RSV (Negative) POC Troponin I (0.01-0.04) ng/ml 06/21/22 06/21/22 Range/Units 20:38 20:48 WBC (4.50-11.00) K/uL RBC (4.00-5.20) m/uL Hgb (12.0-16.0) gm/dL Hct (33.0-51.0) % MCV (80-100) fL MCH (26-34) pg MCHC (32-36) gm/dL RDW Coeff of Corazon (11.5-15.5) % Plt Count (140-440) K/uL Neut % (Auto) (42.0-72.0) % Lymph % (Auto) (20-44) % [place] % (Auto) (0.0-11.0) % Eos % (Auto) (0.0-7.0) % Baso % (Auto) (0.0-3.0) % Neut # (Auto) (1.7-7.0) K/uL Lymph # (Auto) (0.90-2.90) K/uL [place] # (Auto) (0.00-0.90) K/UL Eos # (Auto) (0.00-0.50) K/uL Baso # (Auto) (0.00-0.30) K/uL Abs Immat Gran (auto) (0.00-0.30) K/uL Imm/Tot Granulo (auto) % D-Dimer Quant (PE/DVT) (0.00-0.50) ug/ml Sodium (135-149) mmol/L Potassium (3.6-5.1) mmol/L Chloride (96-114) mmol/L Carbon Dioxide (20-32) mmol/L BUN (7-30) mg/dL Creatinine (0.5-1.5) mg/dL Estimated Creat Clear Estimated GFR ml/min Glucose (60-115) mg/dL Calcium (8.4-10.6) mg/dL Magnesium (1.5-2.6) mg/dL Total Bilirubin (0.1-1.5) mg/dL Direct Bilirubin (0.0-0.5) mg/dL AST (12-35) U/L ALT (4-35) U/L Alkaline Phosphatase (40-150) U/L Troponin I (0.01-0.04) ng/mL C-Reactive Protein (0.5-1.0) mg/dL NT-Pro-B Natriuret Pep (0-125) PG/mL Total Protein (6.0-8.3) g/dL Albumin (3.3-5.0) g/dL Urine Color Yellow (Yellow) Urine Appearance Clear (Clear) Urine pH 7.0 (5.0-8.5) Ur Specific [place] 1.010 (1.000-1.030) Urine Protein Negative (Negative) Urine Glucose (UA) Negative (Negative) Urine Ketones Negative (Negative) Urine Blood Negative (Negative) Urine Nitrite Negative (Negative) Urine Bilirubin Negative (Negative) Urine Urobilinogen 0.2 (0.2-1.0) Ur Leukocyte Esterase Negative (Negative) Urine RBC 0-2 (0-2) Urine WBC 0-2 (0-5) Ur Squamous Epith Cells None (None-Few) Urine Bacteria None (None) Urine Opiates Screen (Negative) Ur Oxycodone Screen (Negative) Urine Methadone Screen (Negative) Ur Propoxyphene Screen (Negative) Ur Barbiturates Screen (Negative) U Tricyclic Antidepress (Negative) Ur Phencyclidine Scrn (Negative) Ur Amphetamines Screen (Negative) U Methamphetamines Scrn (Negative) U Benzodiazepines Scrn (Negative) Urine Cocaine Screen (Negative) U Marijuana (THC) Screen (Negative) Ur Drug Screen Comment Ethyl Alcohol (0.01-0.03) % SARS-CoV-2 (PCR) (Negative) Influenza Type A (PCR) (Negative) Influenza Type B (PCR) (Negative) RSV (PCR) (Negative) POC Troponin I 0.00 L (0.01-0.04) ng/ml ECG Data Attestation: I personally reviewed and interpreted this ECG as follows: (Normal sinus rhythm rate of 68 baseline interference/irritability) Discharge Plan Discharge Clinical Impression: Syncope Patient Disposition: Home w/ Parent or Adult Condition: Improved Additional Instructions: I would try to avoid combining potentially sedating medications. This includes marijuana with oxycodone. Stay well-hydrated. Consider following up with Neurology for review of these events. Return for another episode, chest pain or palpitations, shortness of breath, unusual somnolence. Prescriptions: No Action bupropion HCl 300 mg tablet extended release 24 hr 300 mg PO DAILY Qty: 90 1RF trazodone 100 mg tablet 150 mg PO HS Qty: 90 1RF pregabalin 300 mg capsule 300 mg PO BID Qty: 180 1RF levothyroxine 50 mcg tablet 50 mcg PO DAILY Qty: 90 1RF furosemide 40 mg tablet 40 mg PO DAILY Qty: 90 1RF ascorbic acid (vitamin C) 500 mg tablet 500 mg PO DAILY bisacodyl 5 mg tablet,delayed release (DR/EC) 10 mg PO HS cholecalciferol (vitamin D3) 25 mcg (1,000 unit) capsule 25 mcg PO DAILY minocycline 100 mg capsule 100 mg PO Q12H lorazepam 1 mg tablet 1 mg PO TID PRN citalopram 40 mg tablet 40 mg PO HS dextroamphetamine-amphetamine 20 mg capsule,extended release 24hr 20 mg PO QAM PRN sennosides-docusate sodium [Senna-S] 8.6-50 mg tablet 1 - 4 tab-cap PO BID PRN (Reason: constipation) Qty: 60 0RF Rx Instructions: Hold medication if experiencing loose stools. aspirin 81 mg tablet,delayed release (DR/EC) 81 mg PO BID Qty: 50 0RF Rx Instructions: Medication to help prevent blood clots postoperatively; take TWICE daily. acetaminophen 500 mg capsule 500 - 1,000 mg PO Q6H MDD 4000mg PRNQty: 100 0RF oxycodone 5 mg tablet 2.5 - 5 mg PO Q4-6H MDD 6 PRN (Reason: pain) Qty: 42 0RF Rx Instructions: Take as needed for postop pain: 2.5mg mild pain, 5mg moderate-severe pain; wean as tolerated. Follow Up/Referrals: Jack Zavala MD [Primary Care Provider] - Stand Alone Forms: [email or web address] Info Instructions
--- OUTSIDE RECORDS SUMMARY | 2022-06-21 18:15 | XMS_ITS | Clinical Summary ---
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 Device Shelf Model / Identifier Expiration Serial / Lot Date Left, Size 3-4, 9mm Journey Ii Bcs Xl Pe A/P 48mm M/L 68 Mm Articular Insert Left: [employer] 01/20/2027 [id number] / Implanted: Qty: 1 on 04/05/2019 by French Neal MD at [facility] [employer] / [id number] Results Not on filefrom Last 3 Months Insurance Payer Benefit Plan / Subscriber ID Effective Dates Phone Addre ss Type Group BLUE CROSS BLUE PLUS OUT [id number] 2021-Present [address] [address] [place] [address] Advance Directives Latest Code Status on File Code Status Date Activated Date Inactivated Comments Full Code 04/07/2019 11:24 PM 04/09/2019 3:34 PM Code Status Discussion: Discussed Full Code 04/05/2019 6:12 AM 04/07/2019 10:02 PM Code Status Discussion: Discussed Care Teams 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
[2022-06-21 18:17] LABS: Basophils Absolute Auto 0.06 K/uL (0.00-0.30); Basophils Percent Auto 0.8 % (0.0-3.0); Eosinophils Absolute Auto 0.29 K/uL (0.00-0.50); Hematocrit 41.6 % (33.0-51.0); Hemoglobin* 14.1 gm/dL (12.0-16.0); Immature Granulocytes Abs Auto 0.03 K/uL (0.00-0.30); Immature Granulocytes Pct Auto 0.4 %; Lymphocytes Absolute Auto 2.51 K/uL (0.90-2.90); Lymphocytes Percent Auto 34.6 % (20-44); Mean Corpuscular HGB Conc 34 gm/dL (32-36); Mean Corpuscular Hemoglobin 31 pg (26-34); Mean Corpuscular Volume 91 fL (80-100); Monocytes Percent Auto 6.3 % (0.0-11.0); Neutrophils Absolute Auto 3.91 K/uL (1.7-7.0); Neutrophils Percent Auto 53.9 % (42.0-72.0); Platelet Count* 224 K/uL (140-440); Red Blood Count 4.59 m/uL (4.00-5.20); White Blood Count* 7.26 K/uL (4.50-11.00)
[2022-06-21 18:18] LABS: Slide Review Reflex No
[2022-06-21 18:28] LABS: Albumin* 4.1 g/dL (3.3-5.0)
[2022-06-21 18:29] LABS: Chloride* 102 mmol/L (96-114); Sodium* 138 mmol/L (135-149)
[2022-06-21 18:31] LABS: Alkaline Phosphatase* 100 U/L (40-150); Aspartate Amino Transferase* 31 U/L (12-35); Bilirubin Direct* 0.2 mg/dL (0.0-0.5); Bilirubin Total* 0.5 mg/dL (0.1-1.5); Magnesium* 1.8 mg/dL (1.5-2.6); Total Protein* 6.9 g/dL (6.0-8.3)
[2022-06-21 18:32] LABS: Alanine Aminotransferase* 25 U/L (4-35); Creatinine* 1.4 mg/dL (0.5-1.5); Est. Creatinine Clearance* 44.72; Estimated Glomerular Filt Rate 44 ml/min
[2022-06-21 18:33] LABS: Blood Urea Nitrogen* 20 mg/dL (7-30); Carbon Dioxide* 23 mmol/L (20-32); Ethanol* < 0.01 % (0.01-0.03); Glucose* 129 mg/dL (60-115)
--- NOTE | 2022-06-21 18:35 | CRLHL7_ITS ---
For Patients: As a result of the Cures Act, medical imaging exams and procedure reports are released immediately into your electronic medical record. You may view this report before your referring provider. If you have questions, please contact your health care provider. INDICATION: SYNCOPE, HYPOTENSION, FACTOR 5 Leiden, RECENT POST OP LEFT HIP Indication: Syncope. Hypotension. Factor 5 Leiden. Recent surgical procedure. Technique: CT pulmonary angiogram. Coronal/sagittal reconstruction images. 95 cc of Isovue 370 IV. Comparison: CT of the chest, 02/13/2022. Findings: The thyroid gland is symmetric. Nonenlarged axillary lymph nodes are present. No evidence for an acute aortic syndrome. There is no pleural or pericardial effusion. No thoracic lymphadenopathy. No mass at the thoracic inlet. No pulmonary emboli are seen. No evidence for right heart strain. No pulmonary infarct. The lung windows demonstrated no endobronchial mass. There is no bronchiectasis or architectural distortion. Minimal dependent atelectasis. No suspicious pulmonary nodule or acute airspace disease. Evaluation of the upper abdomen demonstrates a non cirrhotic liver morphology. Gallbladder appears absent. Low-dense hepatic lesions are most likely benign cysts. The stomach appears distended with food material. No upper abdominal lymphadenopathy or ascites. The bone windows demonstrate no suspicious bone lesions. There is degenerative disc disease at the endplates of the thoracic spine. Vertebral body heights are maintained on sagittal reconstruction images. Impression: 1. No pulmonary emboli. 2. No evidence on CT for right heart strain. 3. No thoracic lymphadenopathy or acute airspace disease. Dictated by Iván Mendiola MD @ 06/21/2022 7:31:19 PM Please note that all CT scans at this facility use dose modulation, iterative reconstruction, and/or weight-based dosing when appropriate to reduce radiation dose to as low as reasonably achievable. Dictated by: Iván Mendiola MD @ 06/21/2022 19:31:54 (Electronically Signed)
[2022-06-21 18:36] LABS: C Reactive Protein* 0.5 mg/dL (0.5-1.0)
[2022-06-21 18:40] LABS: NT Pro B Type NatriureticPept* 397 PG/mL (0-125)
--- NOTE | 2022-06-21 18:40 | ED.NURSE ---
EMS IV in pt L hand very positional and contorted. 20G IV placed in pt R AC, EMS IV DC'd, catheter intact.
[2022-06-21 18:44] LABS: Troponin I* < 0.01 ng/mL (0.01-0.04)
[2022-06-21 19:06] LABS: PCR FLU A Negative PCR FLU A (Negative); PCR FLU B Negative PCR FLU B (Negative); PCR RSV Negative PCR RSV (Negative)
[2022-06-21 19:07] LABS: SARS PCR* Negative SARS-CoV-2 (Negative)
[2022-06-21] MEDS: 0.9 % SODIUM CHLORIDE 1000 ml 1,000 ML IV (19:23)
[2022-06-21 20:45] LABS: Appearance Urine Clear (Clear); Bilirubin Urine Negative (Negative); Blood Urine Negative (Negative); Color Urine Yellow (Yellow); Glucose Urine Negative (Negative); Ketones Urine Negative (Negative); Leukocyte Esterase Urine Negative (Negative); Nitrite Urine Negative (Negative); Protein Urine Negative (Negative); Urobilinogen Urine 0.2 (0.2-1.0)
[2022-06-21 20:53] LABS: Amphetamine Screen Urine Negative (Negative); Barbiturate Screen Urine Negative (Negative); Benzodiazepines Screen Urine Negative (Negative); Cannabinoid Screen Urine POSITIVE (Negative); Cocaine Screen Urine Negative (Negative); Methadone Screen Urine Negative (Negative); Methamphetamines Screen Urine Negative (Negative); Opiate Screen Urine Negative (Negative); Oxycodone Screen Urine Negative (Negative); Phencyclidine Screen Urine Negative (Negative); Tricyclic Antidepressant Urine Negative (Negative)
[2022-06-21 20:58] LABS: RBC Urine 0-2 (0-2); WBC Urine 0-2 (0-5)
== END 2022-06-21 21:49 | disposition home or self-care (01) ==
PROVIDERS: Emergency Provider Family Medicine; PCP Family Medicine
DX: R55 Syncope and collapse (principal)
CPT/HCPCS: 36415; 70450; 71260; 80048; 80076; 80306; 81001; 82077; 83735; 83880; 84484; 85025; 85379; 86140; 87502; 87634; 87635; 93005; 94761; 96360; 99284; 99285; J7030; Q9967

== ENCOUNTER 2022-09-01 14:40 | Outpatient (CLI) | payer BC, SELFPAY ==
--- NOTE | 2022-09-01 14:40 | MM_ITS ---
Final Report Patient: LB BRODY Facility:?[facility] Patient ID:?[id number] :?1965 Study:?XRay Breast Bilateral 3D W/CAD-09/01/2022 11:21:50 PM Ordering Physician:ryan hernandez Final Report: BILATERAL DIGITAL SCREENING MAMMOGRAM WITH COMPUTER-AIDED DETECTION AND TOMOSYNTHESIS CLINICAL HISTORY: Routine screening exam. COMPARISON: 09/07/2020, 08/24/2018, 08/24/2017 TECHNIQUE: Digital mammogram in CC and MLO projections including computer-aided detection (CAD) and tomosynthesis. BREAST COMPOSITION: There are scattered areas of fibroglandular density. FINDINGS: RIGHT Breast: Focal asymmetric density within the upper-outer quadrant 5 cm from the nipple. LEFT Breast: No suspicious findings. IMPRESSION: RIGHT breast asymmetry/mass. RECOMMENDATIONS: Additional mammographic views of the RIGHT breast including 3D spot-compression CC/MLO. RIGHT breast ultrasound may also be required. A member of the radiology staff will be contacting the patient to arrange for this additional study. BI-RADS Category 0: Incomplete: Need Additional Imaging Evaluation and/or Prior Mammograms for Comparison [facility] will contact the patient. A lay language report of this examination will be provided to the patient. Dictated by Jack Gray MD @ 09/02/2022 8:39:14 AM Signed by: Jack Gray @ 09/02/2022 9:16:05 AM (Electronic Signature) CRL:[email or web address] ----ADDENDUM---- (Electronic Signature)
== END 2022-09-01 14:41 | disposition home or self-care (01) ==
LOC: MAMMO 14:43
PROVIDERS: PCP Family Medicine; Visit Provider Family Medicine
DX: Z12.31 Encounter for screening mammogram for malignant neoplasm of breast (principal); N63.10 Unspecified lump in the right breast, unspecified quadrant
CPT/HCPCS: 77063; 77067

== ENCOUNTER 2022-09-08 08:46 | Outpatient (CLI) | payer BC, SELFPAY ==
--- NOTE | 2022-09-08 08:45 | CRLHL7_ITS ---
For Patients: As a result of the Cures Act, medical imaging exams and procedure reports are released immediately into your electronic medical record. You may view this report before your referring provider. If you have questions, please contact your health care provider. DIGITAL DIAGNOSTIC RIGHT MAMMOGRAM USING TOMOSYNTHESIS AND COMPUTER-AIDED DETECTION, 09/08/2022 INDICATION: 40-year-old asymptomatic female. Remote history of a benign LEFT breast biopsy. Follow-up a questionable nodule in the superolateral RIGHT breast on a recent mammogram September 01, 2022. TECHNIQUE: View of the RIGHT breast in the CC and MLO projection with computer-aided detection and tomosynthesis. COMPARISON: September 01, 2022. BREAST COMPOSITION: The breasts are heterogeneously dense, which may obscure small masses. FINDINGS: No underlying mass or architecture distortion. Scattered dense RIGHT-sided breast tissue. No suspicious microcalcifications. Ultrasound is not recommended at this time. Annual mammography is recommended. These findings were discussed in detail with the patient. IMPRESSION: Negative additional views of the RIGHT breast. BI-RADS Category 1: Negative A lay language report of this examination will be provided to the patient. Dictated by: Darrin Chakraborty MD @09/08/2022 9:53:17 AM PT/Dictated by: Darrin Chakraborty MD @ 09/08/2022 9:53:00 AM (Electronically Signed)
== END 2022-09-08 08:47 | disposition home or self-care (01) ==
LOC: MAMMO 08:47
PROVIDERS: PCP Family Medicine; Visit Provider Family Medicine
DX: N63.10 Unspecified lump in the right breast, unspecified quadrant (principal); R92.8 Other abnormal and inconclusive findings on diagnostic imaging of breast
CPT/HCPCS: 77065; G0279

== ENCOUNTER 2022-11-28 22:58 | Emergency (ER) | payer BC, SELFPAY ==
[2022-11-28 23:08] VITALS: BP 115/78; PULSE 78; RESP 18; TEMP 36.7; O2SAT 98; BMI 31.2
--- NOTE | 2022-11-28 23:25 | CRLHL7_ITS ---
For Patients: As a result of the Cures Act, medical imaging exams and procedure reports are released immediately into your electronic medical record. You may view this report before your referring provider. If you have questions, please contact your health care provider. Indication: Trauma. Technique: Left toe 2nd digit 3 views. Comparison: None. Findings: Seen only on the lateral view, there is a nondisplaced fracture fragment abutting the dorsal aspect of the base of the middle 2nd phalanx. Associated soft tissue swelling. Bony mineralization is age appropriate. Impression: Seen only on the lateral view, there is a nondisplaced fracture fragment abutting the dorsal aspect of the base of the middle 2nd phalanx. Associated soft tissue swelling. Dictated by Jack Ayoub MD @ 11/29/2022 12:10:48 AM (Electronically Signed)
--- NOTE | 2022-11-28 23:26 | ED_ITS ---
HPI - General Adult General Chief complaint: Neuro Symptoms/Altered Deficit Stated complaint: L side from toes to her hips are completely numb Time Seen by Provider: 11/28/22 23:10 History of Present Illness HPI narrative: Patient is a 57-year-old woman who is status post hip replacement as well as dislocation of the hip on the left. She awoke last night with tingling in the left leg. She got up in stumbled injuring the left 2nd digit of the lower extremity. She has bruising and ecchymosis of the 2nd digit. She does not really have any pain going down her left leg and has normal strength but feels paresthesias and a bubbling sensation. She is able to walk without any difficu lty today but is concerned as she has had previous hip issues. She has no pain over the left hip and has normal range of motion of the hip knee and ankle. No other concerns are noted. Related Data Home Medications Medication Instructions Recorded Confirmed ascorbic acid (vitamin C) 500 mg 500 mg PO DAILY 02/11/22 11/28/22 tablet cholecalciferol (vitamin D3) 25 25 mcg PO DAILY 02/11/22 11/28/22 mcg (1,000 unit) capsule minocycline 100 mg capsule 100 mg PO Q12H 02/11/22 11/28/22 citalopram 40 mg tablet 40 mg PO HS 06/04/22 11/28/22 meloxicam 15 mg tablet 15 mg PO QDAY PRN 10/30/22 11/28/22 clonazepam 1 mg tablet (Klonopin) 1 mg PO BID PRN 11/28/22 11/28/22 Previous Rx's Medication Instructions Recorded furosemide 40 mg tablet 40 mg PO DAILY #90 tabs 04/14/22 levothyroxine 50 mcg tablet 50 mcg PO DAILY #90 tabs 04/14/22 aspirin 81 mg tablet,delayed 81 mg PO BID #50 tabs 06/06/22 release bupropion HCl 300 mg 24 hr tablet, 300 mg PO DAILY #90 tabs 10/16/22 extended release trazodone 100 mg tablet 150 mg PO HS #135 tabs 10/21/22 pregabalin 300 mg capsule 300 mg PO BID #180 caps 10/22/22 dextroamphetamine-amphetamine ER 20 mg PO QAM #30 caps 10/31/22 20 mg 24hr capsule,extend release (Adderall XR) Allergies Allergy/AdvReac Type Severity Reaction Status Date / Time bee venom protein (honey bee) Allergy Severe Anaphylaxis Verified 10/31/22 09:23 Review of Systems Status of ROS: Reports: 10 or more systems reviewed and unremarkable except as noted in History and below [facility] Medical History ADHD, predominantly inattentive type ?F90.0 - Attention-deficit hyperactivity disorder, predominantly inattentive type (ICD-10) Chronic constipation ?K59.09 - Other constipation (ICD-10) CKD (chronic kidney disease), stage II ?N18.2 - Chronic kidney disease, stage 2 (mild) (ICD-10) Colon polyps ?K63.5 - Polyp of colon (ICD-10) Factor V Leiden ?D68.51 - Activated protein C resistance (ICD-10) Family history of clotting disorder ?Z83.2 - Family history of diseases of the blood and blood-forming organs and certain disorders involving the immune mechanism (ICD-10) Fibromyalgia ?M79.7 - Fibromyalgia (ICD-10) Fracture of head of left femur ?S72.052A - Unspecified fracture of head of left femur, initial encounter for closed fracture (ICD-10) ROSITA (generalized anxiety disorder) ?F41.1 - Generalized anxiety disorder (ICD-10) Generalized anxiety disorder ?F41.1 - Generalized anxiety disorder (ICD-10) Hypothyroidism ?E03.9 - Hypothyroidism, unspecified (ICD-10) Insomnia ?G47.00 - Insomnia, unspecified (ICD-10) Neurofibromatosis ?Q85.00 - Neurofibromatosis, unspecified (ICD-10) Postoperative deep vein thrombosis (DVT) ?T81.89XA - Other complications of procedures, not elsewhere classified, initial encounter (ICD-10) ?I82.409 - Acute embolism and thrombosis of unspecified deep veins of unspecified lower extremity (ICD-10) Recurrent major depression ?F33.9 - Major depressive disorder, recurrent, unspecified (ICD-10) Syncope ?R55 - Syncope and collapse (ICD-10) Traumatic brain injury ?S06.9X9A - Unspecified intracranial injury with loss of consciousness of unspecified duration, initial encounter (ICD-10) Surgical History (Updated 07/08/22 @ 11:59 by Isabella Pelaez) History of arthroplasty of left knee ?Z96.652 - Presence of left artificial knee joint (ICD-10) History of bunionectomy ?Z98.890 - Other specified postprocedural states (ICD-10) History of total abdominal hysterectomy and bilateral salpingo-oophorectomy ?Z90.710 - Acquired absence of both cervix and uterus (ICD-10) ?Z90.722 - Acquired absence of ovaries, bilateral (ICD-10) ?Z90.79 - Acquired absence of other genital organ(s) (ICD-10) Hx laparoscopic cholecystectomy ?Z90.49 - Acquired absence of other specified parts of digestive tract (ICD- 10) Hx of appendectomy ?Z90.49 - Acquired absence of other specified parts of digestive tract (ICD- 10) Hx of blepharoplasty ?Z98.890 - Other specified postprocedural states (ICD-10) Hx of section ?Z98.891 - History of uterine scar from previous surgery (ICD-10) Hx of LASIK ?Z98.890 - Other specified postprocedural states (ICD-10) S/P tendon repair ?Z98.890 - Other specified postprocedural states (ICD-10) S/P tendon repair ?Z98.890 - Other specified postprocedural states (ICD-10) Status post left hip replacement (02/09/22) ?Z96.642 - Presence of left artificial hip joint (ICD-10) 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) ?Z96.649 - Presence of unspecified artificial hip joint (ICD-10) Family History Mother Coagulation disorder Depression Osteoarthritis Rheumatoid arthritis Daughter Depression Rheumatoid arthritis Maternal Grandmother Depression Osteoarthritis Thyroid disease Paternal Grandmother Depression Diabetes Social History Narrative: , nonsmoker, full code Highest level of school completed/degree received: Associate degree: academic program Smoking Status: Former smoker Do you use any of these nicotine containing products: None Second hand tobacco smoke exposure: No How often do you have a drink containing alcohol: monthly or less Alcohol type: hard liquor How many standard drinks containing alcohol do you have on a typical day: 1 or 2 How often do you have six or more drinks on one occasion: Never AUDIT-C Alcohol total score: 1 Non-prescribed substance use: marijuana (any form) Caffeine: Yes Little interest or pleasure in doing things: not at all Feeling down, depressed, or hopeless: not at all Are you using contraception or practicing any form of control: No service: No Exam Narrative: Exam Narrative: EXAM GENERAL: Patient appears comfortable and well. EYES: No scleral icterus. ENT: Tympanic membranes and oropharynx normal. THYROID: no thyroid nodules or thyromegaly. LYMPH: No supraclavicular or cervical lymphadenopathy. SKIN: Bruising mild swelling noted over the 2nd digit left lower extremity. EXT: No dependent lower extremity pedal edema. HEART: Regular rate and rhythm with no murmurs, rubs, or gallops. LUNGS: Clear to auscultation bilaterally with no crackles or wheezes. ABD: Soft, non tender, non distended. PSYCH: Good eye contact, speech is not pressured. Neuro exam is completely intact with normal reflexes strength and range of motion of the left lower extremity. Const: Vital Signs, click to edit/add: Vital Signs - 24 hr 11/28/22 23:08 Temperature 98.1 F Pulse Rate [Left P ulse Oximeter] 78 Respiratory Rate 18 Blood Pressure [Le ft Upper Arm] 115/78 Pulse Oximetry 98 Oxygen Delivery Me thod Room Air Course Course Hospital Course: X-ray of the left 2nd toe ordered. Reevaluation(s) Reevaluation #1: X-ray of the toes unremarkable upon my review. Time: 23:54 Vital Signs Vital signs: Initial Vital Signs Temperature 98.1 F 11/28/22 23:08 Temperature Source Temporal Artery Scan 11/28/22 23:08 Pulse Rate 78 11/28/22 23:08 Pulse Rhythm Regular 11/28/22 23:08 Respiratory Rate 18 11/28/22 23:08 Blood Pressure 115/78 11/28/22 23:08 Blood Pressure Mean 90 11/28/22 23:08 Pulse Oximetry 98 11/28/22 23:08 Oxygen Delivery Method Room Air 11/28/22 23:08 Vital Signs Temperature 98.1 F 11/28/22 23:08 Pulse Rate 78 11/28/22 23:08 Respiratory Rate 18 11/28/22 23:08 Blood Pressure 115/78 11/28/22 23:08 Pulse Oximetry 98 11/28/22 23:08 Oxygen Delivery Method Room Air 11/28/22 23:08 Temperature 98.1 F 11/28/22 23:08 Pulse Rate 78 11/28/22 23:08 Respiratory Rate 18 11/28/22 23:08 Blood Pressure 115/78 11/28/22 23:08 Pulse Oximetry 98 11/28/22 23:08 Oxygen Delivery Method Room Air 11/28/22 23:08 Medical Decision Making MDM Narrative Medical decision making narrative: Patient is a 57-year-old woman who presents with a symptoms of paresthesias down the left leg consistent with sciatica. I do not believe this is a cerebrovascular accident at her symptoms are positional and she has a history of back and hip issues. She has no focal neurologic defects on exam. Her strength is appropriate reflexes are appropriate. She did injure her left 2nd toe on the left foot and x-rays negative upon my review. I did recommend range of motion activities anti-inflammatories as needed and follow-up with primary care to discuss MRI and/or outpatient evaluation with physical therapy. Differential Diagnosis Differential Diagnosis: Sciatica hip dislocation fractured toe cerebrovascular accident TIA multipl Discharge Plan Discharge Clinical Impression: Sciatica Patient Disposition: Home, Self-Care Condition: Stable Instructions: Sciatica (ED) Additional Instructions: Tylenol Ice Rest Advance activity as tolerated Follow-up with primary care to discuss MRI. Activity Level: No Restrictions Discharge Diet: Regular Prescriptions: No Action levothyroxine 50 mcg tablet 50 mcg PO DAILY Qty: 90 1RF furosemide 40 mg tablet 40 mg PO DAILY Qty: 90 1RF meloxicam 15 mg tablet 15 mg PO QDAY PRN dextroamphetamine-amphetamine [Adderall XR] 20 mg capsule,extended release 24hr 20 mg PO QAM Qty: 30 0RF ascorbic acid (vitamin C) 500 mg tablet 500 mg PO DAILY cholecalciferol (vitamin D3) 25 mcg (1,000 unit) capsule 25 mcg PO DAILY minocycline 100 mg capsule 100 mg PO Q12H citalopram 40 mg tablet 40 mg PO HS aspirin 81 mg tablet,delayed release (DR/EC) 81 mg PO BID Qty: 50 0RF Rx Instructions: Medication to help prevent blood clots postoperatively; take TWICE daily. clonazepam [Klonopin] 1 mg tablet 1 mg PO BID PRN bupropion HCl 300 mg tablet extended release 24 hr 300 mg PO DAILY Qty: 90 1RF trazodone 100 mg tablet 150 mg PO HS Qty: 135 1RF pregabalin 300 mg capsule 300 mg PO BID Qty: 180 1RF Follow Up/Referrals: Jakc Zavala MD [Primary Care Provider] - Stand Alone Forms: [facility] Info Instructions
[2022-11-29 00:20] VITALS: BP 122/73; PULSE 79; RESP 16; O2SAT 97
== END 2022-11-29 00:21 | disposition home or self-care (01) ==
PROVIDERS: Emergency Provider Internal Medicine; PCP Family Medicine
DX: M54.32 Sciatica, left side (principal)
CPT/HCPCS: 73660; 99283

== ENCOUNTER 2022-12-15 14:30 | Outpatient (CLI) | payer BC, SELFPAY ==
--- NOTE | 2022-12-15 14:30 | CRLHL7_ITS ---
For Patients: As a result of the Century Cures Act, medical imaging exams and procedure reports are released immediately into your electronic medical record. You may view this report before your referring provider. If you have questions, please contact your health care provider. 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 TECHNIQUE: Axial sagittal and coronal T1, proton density and STIR images were obtained of the left foot without contrast administration. COMPARISON: 11/28/2022 radiographs FINDINGS: Osseous structures: STIR hyperintense bone marrow edema type signal in the 2nd and 3rd metatarsal heads as well as the distal aspect of the proximal phalanx of the 2nd toe and the middle phalanx of the 2nd toe. - Joint spaces: Advanced chondral thinning and osteophyte formation at the proximal and distal interphalangeal joints of the 2nd toe. TMT and MTP articulations are maintained. - Tendons, ligaments and muscular structures: The flexor and extensor tendons at the level forefoot are intact. Lisfranc ligament is intact. - Soft tissues: No Medina`s neuroma. The plantar aponeurosis at the forefoot level is intact. No significant muscle atrophy. Dorsal soft tissue swelling. Extensive soft tissue swelling in the 2nd toe. IMPRESSION: 1. Bone marrow edema type signal in the 2nd and 3rd metatarsal heads. Differential includes contusions or stress reactions. 2. Bone marrow edema type signal in the proximal and middle phalanges of the 2nd toe. Differential includes reactive marrow changes from degenerative arthrosis, stress reactions or contusions. 3. Second toe and dorsal foot soft tissue swelling. 4. Advanced degenerative changes in the 2nd PIP and DIP joints as seen on radiographs. 5. No Medina`s neuroma identified as clinically questioned. Dictated by Jack Gr MD @ 12/16/2022 10:15:42 AM (Electronically Signed)
== END 2022-12-15 14:31 | disposition home or self-care (01) ==
PROVIDERS: PCP Family Medicine; Visit Provider Podiatrist
DX: G57.62 Lesion of plantar nerve, left lower limb (principal); M19.072 Primary osteoarthritis, left ankle and foot; M77.8 Other enthesopathies, not elsewhere classified
CPT/HCPCS: 73718

== ENCOUNTER 2023-03-14 19:41 | Emergency (ER) | payer BC, SELFPAY ==
[2023-03-14 19:51] VITALS: BP 121/78; PULSE 84; RESP 18; TEMP 36.7; O2SAT 99; BMI 30.4
[2023-03-14 20:02] LABS: Appearance Urine Slightly Cloudy (Clear); Bilirubin Urine Negative (Negative); Blood Urine 2+ (Negative); Color Urine Yellow (Yellow); Glucose Urine Negative (Negative); Ketones Urine Negative (Negative); Leukocyte Esterase Urine 1+ (Negative); Nitrite Urine Negative (Negative); Protein Urine Negative (Negative); Specific Gravity Urine <= 1.005 (1.000-1.030); Urobilinogen Urine 0.2 (0.2-1.0)
--- NOTE | 2023-03-14 20:08 | ED.FEMALEGU ---
HPI - Female Genitourinary General Chief complaint: Urogenital Problems, Female Stated complaint: Bladder infection Time Seen by Provider: 03/14/23 19:57 History of Present Illness HPI Narrative: This 57-year-old female comes in reporting symptoms of dysuria that began yesterday. She noticed some mild discomfort and some increased frequency starting yesterday and today has increased pain with passing urine. She does not report any fevers or pop flank pain. She states that she does have a long history of kidney and bladder problems. She states that she has been on minocycline for very long time as a prophylactic medication. She reports some darker discoloration of the skin around her mouth that she was told was caused by minocycline. She discontinued this medicine 5 days ago and now has these symptoms. She states that she is otherwise in good health. Related Data Home Medications Medication Instructions Recorded Confirmed ascorbic acid (vitamin C) 500 mg 500 mg PO DAILY 02/11/22 11/28/22 tablet cholecalciferol (vitamin D3) 25 25 mcg PO DAILY 02/11/22 11/28/22 mcg (1,000 unit) capsule minocycline 100 mg capsule 100 mg PO Q12H 02/11/22 11/28/22 citalopram 40 mg tablet 40 mg PO HS 06/04/22 11/28/22 meloxicam 15 mg tablet 15 mg PO QDAY PRN 10/30/22 11/28/22 clonazepam 1 mg tablet (Klonopin) 1 mg PO BID PRN 11/28/22 11/28/22 Previous Rx's Medication Instructions Recorded furosemide 40 mg tablet 40 mg PO DAILY #90 tabs 04/14/22 aspirin 81 mg tablet,delayed 81 mg PO BID #50 tabs 06/06/22 release bupropion HCl 300 mg 24 hr tablet, 300 mg PO DAILY #90 tabs 10/16/22 extended release trazodone 100 mg tablet 150 mg (1.5 x 100 mg) PO HS #135 10/21/22 tabs pregabalin 300 mg capsule 300 mg PO BID #180 caps 10/22/22 dextroamphetamine-amphetamine ER 20 mg PO QAM #30 caps 10/31/22 20 mg 24hr capsule,extend release (Adderall XR) levothyroxine 50 mcg tablet 50 mcg PO DAILY #90 tabs 02/26/23 Allergies Allergy/AdvReac Type Severity Reaction Status Date / Time bee venom protein (honey bee) Allergy Severe Anaphylaxis Verified 03/14/23 19:53 Review of Systems Status of ROS: Reports: 10 or more systems reviewed and unremarkable except as noted in History and below Narrative: Constitutional: No fevers, no weight gain or loss. Eyes: No discharge. No vision changes. HENT: No congestion, no sore throat, no ear pain. Cardiovascular: No chest pain, no palpitations. Respiratory: No shortness of breath, no wheezes, no cough. Gastrointestinal: No abdominal pain, no vomiting, no diarrhea. Genitourinary: Increased frequency of urinating and pain when passing urine. Musculoskeletal: Normal range of motion. Skin: No rashes, no pruritis. Neurological: No dizziness, weakness, sensory change, speech change. Endo/Heme/Allergies: No bruising or bleeding. No polydipsia. Pysch: no suicidality, no anxiety, no insomnia. All other systems reviewed and are negative. [facility] Medical History ADHD, predominantly inattentive type ?F90.0 - Attention-deficit hyperactivity disorder, predominantly inattentive type (ICD-10) Chronic constipation ?K59.09 - Other constipation (ICD-10) CKD (chronic kidney disease), stage II ?N18.2 - Chronic kidney disease, stage 2 (mild) (ICD-10) Colon polyps ?K63.5 - Polyp of colon (ICD-10) Factor V Leiden ?D68.51 - Activated protein C resistance (ICD-10) Family history of clotting disorder ?Z83.2 - Family history of diseases of the blood and blood-forming organs and certain disorders involving the immune mechanism (ICD-10) Fibromyalgia ?M79.7 - Fibromyalgia (ICD-10) Fracture of head of left femur ?S72.052A - Unspecified fracture of head of left femur, initial encounter for closed fracture (ICD-10) ROSITA (generalized anxiety disorder) ?F41.1 - Generalized anxiety disorder (ICD-10) Generalized anxiety disorder ?F41.1 - Generalized anxiety disorder (ICD-10) Hypothyroidism ?E03.9 - Hypothyroidism, unspecified (ICD-10) Insomnia ?G47.00 - Insomnia, unspecified (ICD-10) Neurofibromatosis ?Q85.00 - Neurofibromatosis, unspecified (ICD-10) Postoperative deep vein thrombosis (DVT) ?T81.89XA - Other complications of procedures, not elsewhere classified, initial encounter (ICD-10) ?I82.409 - Acute embolism and thrombosis of unspecified deep veins of unspecified lower extremity (ICD-10) Recurrent major depression ?F33.9 - Major depressive disorder, recurrent, unspecified (ICD-10) Syncope ?R55 - Syncope and collapse (ICD-10) Traumatic brain injury ?S06.9X9A - Unspecified intracranial injury with loss of consciousness of unspecified duration, initial encounter (ICD-10) Surgical History (Updated 07/08/22 @ 11:59 by Isabella Pelaez) 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) ?Z96.649 - Presence of unspecified artificial hip joint (ICD-10) Hx of section ?Z98.891 - History of uterine scar from previous surgery (ICD-10) Hx of blepharoplasty ?Z98.890 - Other specified postprocedural states (ICD-10) History of bunionectomy ?Z98.890 - Other specified postprocedural states (ICD-10) Status post left hip replacement (02/09/22) ?Z96.642 - Presence of left artificial hip joint (ICD-10) S/P tendon repair ?Z98.890 - Other specified postprocedural states (ICD-10) Hx laparoscopic cholecystectomy ?Z90.49 - Acquired absence of other specified parts of digestive tract (ICD-10) History of total abdominal hysterectomy and bilateral salpingo-oophorectomy ?Z90.710 - Acquired absence of both cervix and uterus (ICD-10) ?Z90.722 - Acquired absence of ovaries, bilateral (ICD-10) ?Z90.79 - Acquired absence of other genital organ(s) (ICD-10) Hx of appendectomy ?Z90.49 - Acquired absence of other specified parts of digestive tract (ICD-10) S/P tendon repair ?Z98.890 - Other specified postprocedural states (ICD-10) Hx of LASIK ?Z98.890 - Other specified postprocedural states (ICD-10) History of arthroplasty of left knee ?Z96.652 - Presence of left artificial knee joint (ICD-10) Family History Mother Coagulation disorder Depression Osteoarthritis Rheumatoid arthritis Daughter Depression Rheumatoid arthritis Maternal Grandmother Depression Osteoarthritis Thyroid disease Paternal Grandmother Depression Diabetes Social History Narrative: , nonsmoker, full code Highest level of school completed/degree received: Associate degree: academic program Smoking Status: Former smoker Do you use any of these nicotine containing products: None Second hand tobacco smoke exposure: No How often do you have a drink containing alcohol: monthly or less Alcohol type: hard liquor How many standard drinks containing alcohol do you have on a typical day: 1 or 2 How often do you have six or more drinks on one occasion: Never AUDIT-C Alcohol total score: 1 Non-prescribed substance use: marijuana (any form) Caffeine: Yes Little interest or pleasure in doing things: not at all Feeling down, depressed, or hopeless: not at all Are you using contraception or practicing any form of control: No service: No Exam Narrative: Exam Narrative: Constitutional: Well-developed, well-nourished, no acute distress. HEENT: Normocephalic, atraumatic. Neck: Normal range of motion. Nontender. Supple. Heart: Intact distal pulses. Lungs: No chest discomfort. No wheezes, rhonchi, or rales. Abdomen: Nontender. Back: Normal range of motion. Extremities: Normal range of motion. No injury. Skin: Intact. No rash. Warm. No erythema or pallor. Neurologic: No altered sensation. No weakness. Alert and oriented. Psychiatric: No suicidality. No anxiety or depression. No insomnia. Nursing notes and vitals signs are reviewed. Const: Vital Signs, click to edit/add: Vital Signs - 24 hr 03/14/23 19:51 Temperature 98.0 F Pulse Rate [Right Pulse Oximeter] 84 Respiratory Rate 18 Blood Pressure [Ri ght Upper Arm] 121/78 Pulse Oximetry 99 Oxygen Delivery Me thod Room Air Course Vital Signs Vital signs: Initial Vital Signs Temperature 98.0 F 03/14/23 19:51 Temperature Source Temporal Artery Scan 03/14/23 19:51 Pulse Rate 84 03/14/23 19:51 Respiratory Rate 18 03/14/23 19:51 Blood Pressure 121/78 03/14/23 19:51 Blood Pressure Mean 92 03/14/23 19:51 Blood Pressure Position Sitting 03/14/23 19:51 Pulse Oximetry 99 03/14/23 19:51 Oxygen Delivery Method Room Air 03/14/23 19:51 Vital Signs Temperature 98.0 F 03/14/23 19:51 Pulse Rate 84 03/14/23 19:51 Respiratory Rate 18 03/14/23 19:51 Blood Pressure 121/78 03/14/23 19:51 Pulse Oximetry 99 03/14/23 19:51 Oxygen Delivery Method Room Air 03/14/23 19:51 Temperature 98.0 F 03/14/23 19:51 Pulse Rate 84 03/14/23 19:51 Respiratory Rate 18 03/14/23 19:51 Blood Pressure 121/78 03/14/23 19:51 Pulse Oximetry 99 03/14/23 19:51 Oxygen Delivery Method Room Air 03/14/23 19:51 MDM - Female Genitourinary MDM Narrative Medical decision making narrative: This patient comes in reporting dysuria symptoms as described above. Urinalysis is obtained and does show some evidence of urinary tract infection. Her white blood cell count on urinalysis is between 5-10 per high-powered field. The patient received prescription for Keflex and is encouraged to follow-up with her primary physician to consider other options for prophylaxis if indicated. Lab Data Labs: Lab Results 03/14/23 Range/Units 19:55 Urine Color Yellow (Yellow) Urine Appearance Slightly Cloudy A (Clear) Urine pH 6.0 (5.0-8.5) Ur Specific [place] <= 1.005 (1.000-1.030) Urine Protein Negative (Negative) Urine Glucose (UA) Negative (Negative) Urine Ketones Negative (Negative) Urine Blood 2+ A (Negative) Urine Nitrite Negative (Negative) Urine Bilirubin Negative (Negative) Urine Urobilinogen 0.2 (0.2-1.0) Ur Leukocyte Esterase 1+ A (Negative) Urine RBC 5-10 A (0-2) Urine WBC 5-10 A (0-5) Ur Squamous Epith Cells Few (None-Few) Urine Bacteria Few A (None) Discharge Plan Discharge Clinical Impression: Urinary tract infection Patient Disposition: Home, Self-Care Condition: Stable Additional Instructions: Take medication as prescribed. Follow up with primary physician to consider ongoing management for prevention of urinary tract infection symptoms. Return if worsening. Prescriptions: No Action furosemide 40 mg tablet 40 mg PO DAILY Qty: 90 1RF meloxicam 15 mg tablet 15 mg PO QDAY PRN dextroamphetamine-amphetamine [Adderall XR] 20 mg capsule,extended release 24hr 20 mg PO QAM Qty: 30 0RF ascorbic acid (vitamin C) 500 mg tablet 500 mg PO DAILY cholecalciferol (vitamin D3) 25 mcg (1,000 unit) capsule 25 mcg PO DAILY minocycline 100 mg capsule 100 mg PO Q12H citalopram 40 mg tablet 40 mg PO HS aspirin 81 mg tablet,delayed release (DR/EC) 81 mg PO BID Qty: 50 0RF Rx Instructions: Medication to help prevent blood clots postoperatively; take TWICE daily. clonazepam [Klonopin] 1 mg tablet 1 mg PO BID PRN bupropion HCl 300 mg tablet extended release 24 hr 300 mg PO DAILY Qty: 90 1RF trazodone 100 mg tablet 150 mg PO HS Qty: 135 1RF pregabalin 300 mg capsule 300 mg PO BID Qty: 180 1RF levothyroxine 50 mcg tablet 50 mcg PO DAILY Qty: 90 0RF Follow Up/Referrals: Jack Zavala MD [Primary Care Provider] - Stand Alone Forms: [employer] Info Instructions
[2023-03-14 20:12] LABS: Bacteria Urine Few; Squamous Epithelial Cell Urine Few (None-Few)
[2023-03-14 20:42] VITALS: BP 128/68; PULSE 79; RESP 18; TEMP 36.7; O2SAT 99
[2023-03-14 20:43] VITALS: BP 128/68; PULSE 79; RESP 18; TEMP 36.7
== END 2023-03-14 20:43 | disposition home or self-care (01) ==
PROVIDERS: Emergency Provider Emergency Medicine Emergency Medical Services; PCP Family Medicine
DX: N39.0 Urinary tract infection, site not specified (principal)
CPT/HCPCS: 81001; 87086; 87186; 99283; 99284

== ENCOUNTER 2023-04-03 11:18 | Outpatient (CLI) | payer BC, SELFPAY | END 2023-04-03 11:19 | disposition home or self-care (01) | PROVIDERS: PCP Family Medicine; Visit Provider Family Medicine | DX: E03.9 Hypothyroidism, unspecified (principal); N18.2 Chronic kidney disease, stage 2 (mild); Z13.6 Encounter for screening for cardiovascular disorders | CPT/HCPCS: 80048; 80061; 84443 ==

== ENCOUNTER 2023-08-25 16:01 | Outpatient (CLI) | payer BC, SELFPAY ==
--- OUTSIDE RECORDS SUMMARY | 2023-08-30 04:36 | XMS_ITS | Referral Summary ---
Author Name Unknown Organization [facility] Address [address] [place] [address] Care Team Providers Care Pan Cleaner Name Role Phone Unavailable Primary Care Provider Unavailabl e Source Comments Patient records contain information from all sites at [facility]. For routine questions regarding patient records, call [phone] during business hours, M-F 8:00 AM - 5:00 PM Central Time. Record requests for emergency care only can be directed to [phone] at any time.[facility] Allergies Active Allergy Reactions Criticality Noted Date Comments Bee Venom Protein (Honey Bee) Other (see comments) 05/06/2019 Covid-19 Vacc,Mrna(Moderna)-P f Myalgia 10/06/2022 SICK IN THE BED PAIN AND CHILLS X1 WEEK Medications Medication Sig Dispensed Refills Start Date End Date Status albuterol 90 mcg/actuation inhaler Inhale 2 puffs every 4 (four) hours as needed. 0 04/09/2021 Active bisacodyL (DULCOLAX) 5 mg EC tablet Take 10 mg by mouth. 0 Active buPROPion XL (WELLBUTRIN XL) 300 mg 24 hr tablet Take 300 mg by mouth. 0 10/16/2022 Active cholecalciferol (VITAMIN D3) 125 mcg (5,000 Unit) capsule Take 5,000 Units by mouth. 0 01/19/2020 Active citalopram (CeleXA) 40 mg tablet Take 40 mg by mouth. 0 04/14/2022 Active amphetamine-dextroamph etamine (ADDERALL XR) 20 mg 24 hr capsule Take 20 mg by mouth. 0 04/14/2022 Active furosemide (LASIX) 40 mg tablet Take 40 mg by mouth. 0 04/14/2022 Active levothyroxine (SYNTHROID, LEVOTHROID) 50 mcg tablet Take 50 mcg by mouth. 0 12/04/2022 Active pregabalin (LYRICA) 300 mg capsule Take 300 mg by mouth. 0 10/22/2022 Active traZODone (DESYREL) 100 mg tablet Take 150 mg by mouth. 0 10/21/2022 Active Social History Tobacco Use Types Packs/Day Years Used Date Smoking Tobacco: Never Smokeless Tobacco: Never Alcohol Use Standard Drinks/Week Comments Yes 0 (1 standard drink = 0.6 oz pur e alcohol) Twicer per year Nutrition Answer Date Recorded Nutrition: EVOO Fat Source Unknown 02/10 Nutrition: Servings of Fruits/Vegetables per Day Not on file 02/10/2022 Dental Answer Date Recorded Dental: Regular Dentist Unknown 02/11/20 Sex and Gender Information Value Date Recorded Sex Assigned at Not on file Gender Identity Not on file Sexual Orientation Not on file Last Filed Vital Signs Vital Sign Reading Time Taken Comments Blood Pressure 123/66 02/09/2023 1:25 PM CDT Pulse 90 02/09/2023 1:25 PM CDT Temperature 37 ??C (98.6 ??F) 02/09/2023 1:25 PM CDT Respiratory Rate - - Oxygen Saturation - - Inhaled Oxygen Concentration - - Weight - - Height - - Body Mass Index - - Plan of Treatment Upcoming Encounters Date Type Department Care Team (Late st Contact Info) Description 10/20/2023 3:45 PM WIG DRESSER Office Visit Department of Orthopedic Surgery in [place], [place] [address] [place] [phone] Mercy Brown D.PJennieM. [address] [place] [address] Discharge Disposition: Home or Self Care
--- OUTSIDE RECORDS SUMMARY | 2023-08-30 04:36 | XMS_ITS | Patient Health Record ---
Author Name Unknown Organization [facility] Address [address] [facility] [address] [place] [place] [id number] Care Team Providers Care Mediator Name Role Phone NONE, Use Primary Care Provider UnavailMikal Grayson Unavailable [phone] DO Baldwin Brian R. Unavailable Unavailable JUSTEN DUTTA Unavailable [phone] ALLERGIES Allergen (clinical drug ingredient) Drug/Non Drug Allergy documented on EMR Reaction Allergy Type Onset Date Status Moderna COVID-19 Vaccine Unknown Drug Allergy Active RESULTS Component Value Reference Range Notes X ray : Foot, left Reviewed date:10/09/2022 02:25:32 PM Interpretation: Performing Lab: Notes/Report: Uric Acid Reviewed date:10/09/2022 02:17:51 PM Interpretation: Performing Lab: Notes/Report: URIC 6.4 2.5-7.5 mg/dL Basic Metabolic Profile Reviewed date:10/09/2022 02:18:00 PM Interpretation: Performing Lab: Notes/Report: NA 137 137-145 mmol/L K 3.8 3.6-5.0 mmol/L CL 102 98-107 mmol/L CO2 26 22-31 mmol/L CREA 0.96 0.57-1.11 mg/dL BUN 18 7-20 mg/dL GLU 86 60-110 mg/dL CALC 8.5 8.6-10.3 mg/dl BUN/CREA RATIO 18.75 10.00-20.00 Anion Gap 9.00 6.00-16.00 mmol/L OSMOL 275.03 275.00-295.00 eGFR 59.70 G1 >=90 (Normal or high); G2 60-90 (Mildly decreased); G3a 45-59 (Mildly to moderately decreased); G3b 30-44 (Moderately to severly decreased); G4 15-29 (Severely decreased; G5 <15 (Kidney failure) PT-INR / APTT Reviewed date:10/09/2022 02:09:33 PM Interpretation: Performing Lab: Notes/Report: PT-SEC 24.00 20.00-25.00 Seconds PT-INR 1.10 0.80-1.20 APTT 117.00 93.00-130.00 Seconds Complete Blood Count w/ 5Dif f Reviewed date:10/09/2022 02:09:28 PM Interpretation: Performing Lab: Notes/Report: WBC 4.6 5.0-10.0 x10^3/uL BAS# 0.02 0.01-0.08 10^3/uL BASO% 0.40 0.10-1.20 % EOS# 0.07 0.04-0.36 10^3/uL EOS% 1.50 0.70-5.80 % JAYY% 55.20 34.00-71.10 % NEUT# 2.52 1.56-6.13 10^3/uL LYMPH 33.3 19.3-51.7 % LYMPH# 1.5 1.2-3.7 x10^3/uL MONO 9.4 4.7-12.5 % MONO# 0.4 0.2-0.4 x10^3/uL IG# 0.01 0.00-0.03 10^3/uL IG% 0.20 0.00-0.42 % HCT 39.7 34.1-44.9 % HGB 13.5 11.2-15.7 g/dL MCH 30.3 25.6-32.2 pg MCHC 34.0 32.2-35.5 g/dL MCV 89.2 79.4-94.8 fL MPV 11.3 9.4-12.3 fL PLT 186 150-400 x10^3/uL RBC 4.5 3.9-5.2 x10^6/uL RDW 13.9 11.7-14.4 % RDWSD 46.90 36.40-46.30 fL REASON FOR REFERRAL No Information MEDICATIONS Medication SIG (Take, Route, Frequency, Duration) Notes Start Date End Date Status Wellbutrin Active Synthroid Active traZODone HCl Active CeleXA Active Mobic 15 MG 1 tablet Orally Once a day for 30 day(s) 10/09/2022 Active Minocycline HCl Acti ve Stool Softener & Laxative Active SOCIAL HISTORY Tobacco Use: Social History Observation Description Date Details (start date - stop date) Never Smoker NA - NA Sex Assigned At : Social History Observation Description Sex Assigned At Unknown Tobacco Use/Smoking Question Answer Notes Are you a nonsmoker Additional Findings: Tobacco Non-User Current no n-smoker Alcohol Screen Question Answer Notes Did you have a drink contain ing alcohol in the past year? Yes How often did you have a dri nk containing alcohol in the past year? Monthly or less (1 point) How many drinks did you have on a typical day when you were drinking in the past year? 1 or 2 drinks (0 point) How often did you have 6 or more drinks on one occasion in the past year? Never (0 point) Points 1 Interpretation Negative PROBLEMS Problem Type ICD Code Onset Dates Problem Status W/U Status Risk SNOMED Code Notes Problem Pain in left foot (M79.672) Active confirmed Pain in left foot (4703400913248 07) Problem Overweight (E66.3) Active confirmed Overweight (844823697) VITAL SIGNS Heart Rate 78 /min 10/09/2022 Temperature 98.1 degrees Fahrenheit 10/09/2022 Respiratory Rate 18 /min 10/09/2022 Oximetry 97 % 10/09/2022 Height-cm 172.72 cm 10/09/2022 Blood pressure diastolic 80 mm Hg 10/09/2022 Weight-kg 90.72 kg 10/09/2022 Height 68 in 10/09/2022 Blood pressure systolic 120 mm Hg 10/09/2022 Weight 200 lbs 10/09/2022 BMI 30.41 kg/m2 10/09/2022 PROCEDURES Procedure Date Ordered Date Performed Result Body Sit e ROUTINE VENIPUNCTURE 10/09/2022 N/A Encounters Encounter Location Date Provider Diagnosis [facility] [address] [place] [id number] 10/09/2022 JUSTEN DUTTA Pain in left foot M79.672 and Overweight E66.3 ASSESSMENTS Encounter Date Diagnosis Assessment Notes Treatment Notes Treatment Clinical Notes 10/09/2022 Pain in left foot (ICD-10 - M79.672) 10/09/2022 Overweight (ICD-10 - E66.3) PLAN OF TREATMENT Pending Test Test Name Order Date ROUTINE VENIPUNCTURE 10/09/2022 MEDICAL (GENERAL) HISTORY Medical History History ICD Code depression fibromyalgia thyroid one working kidney factor 2 clotting disorder Surgical History Surgery Date(Month/Year) hysterectomy cholecystectomy appendectomy ankle surgery wrist hip, Left x 3 Hospitalization History Reason Date(Month/Year) surgery
--- OUTSIDE RECORDS SUMMARY | 2023-08-30 04:36 | XMS_ITS ---
Author Name Unknown Organization [facility] Address [address] [place] [address] Care Team Providers Care Mounter Smoking Pipe Name Role Phone Unavailable Unavailable Unavailable Surgery Details Not on file Complications Check Surgery Details section. Procedure Estimated Blood Loss Check Surgery Details section. Procedure Findings Check Surgery Details section. Procedure Specimens Taken Check Surgery Details section.
--- OUTSIDE RECORDS SUMMARY | 2023-08-30 04:36 | XMS_ITS | Encounter Summary ---
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 Region Referral ID Status Reason Start Date Expiration Date V isits Requested Visits Authorized [id number] Authorized 02/09/2023 02/09/2024 1 1 * Outpatient (Routine) - Authorized Specialty Diagnoses / Procedures Referred By Contaddison t Referred To Contact Diagnoses Arthritis Toe Procedures Foot/Ankle: R second DIP joint, R second PIP joint Mercy Brown D.PJennieMJennie [address] [place] [address] [facility] Region Referral ID Status Reason Start Date Expiration Date V isits Requested Visits Authorized [id number] Authorized 02/09/2023 02/09/2024 1 1 Reason for Visit * Reason Comments Pain 2nd Toe Pain, Injury several months ago. Bunionette Pain Bunionette * Appointment Request (Routine) - Closed Specialty Diagnoses / Procedures Referred By Contac t Referred To Contact Orthopedic Surgery Diagnoses Pain Foot Left Jack Zavala M.D. [address] [place] [address] Referral ID Status Reason Start Date Expiration Date Visits Re quested Visits Authorized [id number] Closed 11/04/2022 11/04/2023 1 1 Encounter Details Date Type Department Care Team (Latest Contact Info) Description 02/09/2023 1:30 PM CDT Comprehensive Visit Department of Orthopedic Surgery in [place], [place] [address] [place] [phone] Mercy Hernández am, D.PJennieMJennie [address] [place] [phone] Bunionette Left (Primary Dx); Bunionette Right; Arthritis Toe Discharge Disposition: Home or Self Care Social History Tobacco Use Types Packs/Day Years [...] on file Sexual Orientation Not on file documented as of this encounter Last Filed Vital Signs Vital Sign Reading Time Taken Comments Blood Pressure 123/66 02/09/2023 1:25 PM CDT Pulse 90 02/09/2023 1:25 PM CDT Temperature 37 ??C (98.6 ??F) 02/09/2023 1:25 PM CDT Respiratory Rate - - Oxygen Saturation - - Inhaled Oxygen Concentration - - Weight - - Height - - Body Mass Index - - documented in this encounter Progress Notes * Mercy Brown D.P.M. - 02/09/2023 1:30 PM CDT SUBJECTIVE CHIEF COMPLAINT/REASON FOR VISIT Chief Complaint Patient presents with Left Foot - Pain 2nd Toe Pain, Injury several months ago. Bunionette Right Foot - Pain Bunionette HISTORY OF PRESENT ILLNESS Kelly presents today for : 1) pain to the side of her feet 2) pain and swelling to left 2nd toe. REVIEW OF SYSTEMS The following portions of the patient's history were reviewed and updated as appropriate: allergies, current medications, family history, medical history, social history, surgical history, and problem list. OBJECTIVE VITAL SIGNS BP 123/66 Pulse 90 Temp 37 ??C (Temporal) PHYSICAL EXAMINATION General Appearance: Kelly is well nourished, well groomed, cooperative, alert and is in no acute distress. Lower Extremity Physical Exam: Musculoskeletal: Edema to middle and distal interphalangeal joint of the left 2nd digit. Bursitis to the right and left 5th metatarsal head. History of bunionectomy right foot. MRI had been performedand December of 2022 positive for stress fracture to the 2nd and 3rd metatarsal head. There is no edema or pain to this area. Motor strength normal and symmetric. No gross deformities or dislocations. Rectus foot structure. Gait: normal gait for age. Neurological: Coordination within normal limits. Patient is able to follow tasks as directed. Dermatological: Lower extremity: Skin evaluation: Skin, turgor, texture and color within normal limits Vascular: intact ASSESSMENT / PLAN 1. Bunionette Left 2. Bunionette Right 3. Arthritis Toe PLAN: Discussed with the patient clinical findings and MRI noting degenerative changes to the proximal and distal interphalangeal joints of the left 2nd toe. Reviewed treatment options for arthritis and she states she is having difficulty getting back into shoes because of the swelling to her toe. She is opted for cortisone injection. Injection performed to the proximal and distal interphalangealjoint of the left 2nd toe. Also reviewed the bursitis present to the right and left foot. I have reviewed a prior x-ray October 31 noting bunionette deformity, 2022. Dancer pad is placed into her rightand left shoe insert to offload the 5th metatarsal head. She is also opted for cortisone injection to the bursa in the right and left 5th metatarsal head. Patient tolerated procedure well. Please seeprocedure notes. Assessment for Kelly will be ongoing with changes in treatment as indicated. Kelly will follow with Podiatry as needed if symptoms continue 2 months. Discussed the option of arthr odesis to the 2nd digit if she has continued symptoms of edema and pain. All questions answered. documented in this encounter Procedure Notes * Mercy Brown D.P.M. - 02/09/2023 1:30 PM CDTAssociated Order(s): Foot/Ankle: R second DIP joint, R second PIP joint Post-Procedure Diagnose(s): Arthritis Toe R second DIP joint and R second PIP joint joint injection, : injection only Foot/Ankle: R second DIP joint, R second PIP joint Performed by: Mercy Brown D.P.M. Authorized by: Mercy Brown D.P.M. PROCEDURE DETAILS Prep: patient was prepped and draped in usual sterile fashion Procedure performed: injection only Foot-Ankle procedure site: R second DIP joint and R second PIP joint joint injection, PROCEDURE MEDICATIONS Local anesthetics: 0.25 mL lidocaine 10 mg/mL (1 %) Corticosteroid: 4 mg dexAMETHasone 4 mg/mL PRE-PROCEDURE DETAILS Procedure purpose: therapeutic Appropriate hand hygiene, gown, cap, mask, protective eyewear, sterile gloves, skin preparation, sterile drape, and strict aseptic technique were utilized as applicable for the procedure. Site preparation: alcohol SEDATION / ANESTHESIA Anesthesia method: local infiltration Local infiltrate type: lidocaine POST-PROCEDURE DETAILS Procedure outcome: successful procedure Complications: no apparent complications * Mercy Brown D.P.M. - 02/09/2023 1:30 PM CDTAssociated Order(s): Foot/Ankle Post-Procedure Diagnose(s): Bunionette Right; Bunionette Left Other site: Bursa 5th metatarsal right and left : injection only Foot/Ankle Performed by: Mercy Brown D.P.M. Authorized by: Mercy Brown D.P.M. PROCEDURE DETAILS Prep: patient was prepped and draped in usual sterile fashion Procedure performed: injection only Foot-Ankle procedure site: Other site: Bursa 5th metatarsal right and left PROCEDURE MEDICATIONS Local anesthetics: 1 mL lidocaine 10 mg/mL (1 %) Corticosteroid: 2 mg dexAMETHasone 4 mg/mL; 20 mg triamcinolone acetonide 40 mg/mL PRE-PROCEDURE DETAILS Procedure purpose: therapeutic Appropriate hand hygiene, gown, cap, mask, protective eyewear, sterile gloves, skin preparation, sterile drape, and strict aseptic technique were utilized as applicable for the procedure. 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 [address] [place] [phone] Discharge Disposition: Home or Self Care documented as of this encounter Procedures Procedure Name Priority Date/Time Associated Diagnosis Comments SMALL JOINT INJECTION FOOT/ANKLE Routine 02/09/2023 1:30 PM CDT Bunionette Left Bunionette Right SMALL JOINT INJECTION FOOT/ANKLE Routine 02/09/2023 1:30 PM CDT Arthritis Toe documented in this encounter Results * Foot/Ankle (02/09/2023 1:30 PM CDT) Narrative Mercy Brown D.P.M. - 02/09/2023 1:30 PM CDT Mercy Brown D.P.M. ? 02/09/2023 ??4:16 PM Other site: Bursa 5th metatarsal right and left : injection only Foot/Ankle Performed by: Mercy Brown D.P.M. Authorized by: Mercy Brown D.P.M. ?? PROCEDURE DETAILS ?? Prep: patient was prepped and draped in usual sterile fashion ?? Procedure performed: injection only Foot-Ankle procedure site: Other site: Bursa 5th metatarsal right and left PROCEDURE MEDICATIONS Local anesthetics: 1 mL lidocaine 10 mg/mL (1 %) Corticosteroid: 2 mg dexAMETHasone 4 mg/mL; 20 mg triamcinolone acetonide 40 mg/mL PRE-PROCEDURE DETAILS Procedure purpose: therapeutic Appropriate hand hygiene, gown, cap, mask, protective eyewear, sterile gloves, skin preparation, sterile drape, and strict aseptic technique were utilized as applicable for the procedure. Site preparation: alcohol SEDATION / ANESTHESIA Anesthesia method: topical application Topical application type: lidocaine POST-PROCEDURE DETAILS Procedure outcome: ??successful procedure Complications: no apparent complications Mercy Brown D.P.M. PROCED URE/MINOR SURGICAL ORDERABLES * Foot/Ankle: R second DIP joint, R second PIP joint (02/09/2023 1:30 PM CDT) Narrative Mercy Brown D.P.M. - 02/09/2023 1:30 PM CDT Mercy Brown D.P.M. ? 02/09/2023 ??4:16 PM R second DIP joint and R second PIP joint joint injection, : injection only Foot/Ankle: R second DIP joint, R second PIP joint Performed by: Mercy Brown D.P.M. Authorized by: Mercy Bronw D.P.M. ?? PROCEDURE DETAILS ?? Prep: patient was prepped and draped in usual sterile fashion ?? Procedure performed: injection only Foot-Ankle procedure site: R second DIP joint and R second PIP joint joint injection, PROCEDURE MEDICATIONS Local anesthetics: 0.25 mL lidocaine 10 mg/mL (1 %) Corticosteroid: 4 mg dexAMETHasone 4 mg/mL PRE-PROCEDURE DETAILS Procedure purpose: therapeutic Appropriate hand hygiene, gown, cap, mask, protective eyewear, sterile gloves, skin preparation, sterile drape, and strict aseptic technique were utilized as applicable for the procedure. Site preparation: alcohol SEDATION / ANESTHESIA Anesthesia method: local infiltration Local infiltrate type: lidocaine POST-PROCEDURE DETAILS Procedure outcome: ??successful procedure Complications: no apparent complications Mercy Brown D.P.M. PROCED URE/MINOR SURGICAL ORDERABLES documented in this encounter Visit Diagnoses Diagnosis Bunionette Left- Primary Bunionette Right Arthritis Toe documented in this encounter Administered Medications Inactive Administered Medications - up to 3 most recent administrations Medication Order MAR Action Action Date Dose Rate Site dexAMETHasone injection 2 mg (DECADRON) 2 mg, intra-articular, One-Time Injection, Starting on Thu02/09/23 at 1330, For 1 dose Given 02/09/2023 1:30 PM CDT 2 mg dexAMETHasone injection 4 mg (DECADRON) 4 mg, intra-articular, One-Time Injection, Starting on Thu02/09/23 at 1330, For 1 dose Given 02/09/2023 1:30 PM CDT 4 mg lidocaine 10 mg/mL (1 %) injection 0.25 mL (XYLOCAINE) 0.25 mL, injection, One-Time Injection, Starting on Thu02/09/23 at 1330, For 1 dose Given 02/09/2023 1:30 PM CDT 0.25 mL lidocaine 10 mg/mL (1 %) injection 1 mL (XYLOCAINE) 1 mL, injection, One-Time Injection, Starting on Thu02/09/23 at 1330, For 1 dose Given 02/09/2023 1:30 PM CDT 1 mL triamcinolone acetonide injection 20 mg (KENALOG-40) 20 mg, intra-articular, One-Time Injection, Starting on Thu02/09/23 at 1330, For 1 dose Given 02/09/2023 1:30 PM CDT 20 mg documented in this encounter
--- OUTSIDE RECORDS SUMMARY | 2023-08-30 04:36 | XMS_ITS | Clinical Summary ---
Author Name Unknown Organization [facility] Address [place], [place] [address] Care Team Providers Care Applications Support Lead Name Role Phone Jack Zavala MD Primary Care Provider + Allergies Active Allergy Reactions Criticality Noted Date Comments Bee Venom Protein (Honey Bee) *Unknown 2018 Medications Medication Sig Dispensed Refills Start Date End Date Status bisacodyl (DULCOLAX, BISACODYL,) 5 mg delayed release tablet Take 10 mg by mouth once daily. 0 Active cholecalciferol (DIALYVITE VITAMIN D) 5,000 unit capsule Take 1 capsule by mouth once daily. 40 units = 1 mcg (5000 units = 125 mcg) 0 01/19/2020 Active albuterol HFA (PRO-AIR; VENTOLIN; PROVENTIL) 90 mcg/actuation inhalerIndicati ons:Cough Inhale 2 Puffs by mouth every 4 hours if needed (SOB). 18 g 5 04/09/2021 Active dextroamphetami ne-amphetamine (ADDERALL XR) 20 mg Extended-Releas e capsule Take 1 Capsule (20 mg) by mouth every morning. 30 Capsule 0 04/14/2022 Active dextroamphetami ne-amphetamine (ADDERALL XR) 20 mg Extended-Releas e capsule Take 1 Capsule (20 mg) by mouth every morning. 30 Capsule 0 05/14/2022 Active dextroamphetami ne-amphetamine (ADDERALL XR) 20 mg Extended-Releas e capsule Take 1 Capsule (20 mg) by mouth every morning. 30 Capsule 0 05/14/2022 Active durable medical equipment (DME)Indication s:Neuroma of second interspace of left foot,Toe pain, left [id number] Squared Toed Post op shoe, Small 1 Each 0 12/19/2022 Active citalopram (CELEXA) 40 mg tablet Take 1 Tablet (40 mg) by mouth at bedtime. 90 Tablet 1 03/15/2023 Active semaglutide (Wegovy) 0.25 mg/0.5 mL pen Inject 0.25 mg subcutaneously every week for 4 weeks; then increase to 0.5 mg dose. 2 mL 2 04/03/2023 Active semaglutide, weight loss, (Wegovy) 0.5 mg/0.5 mL pen Inject 0.5 mg subcutaneous once weekly. 2 mL 0 04/03/2023 Active buPROPion (WELLBUTRIN XL) 300 mg Extended-Releas e tablet Take 1 Tablet (300 mg) by mouth once daily. 90 Tablet 1 04/13/2023 Active pregabalin (LYRICA) 300 mg capsule Take 1 Capsule (300 mg) by mouth two times daily. 180 Capsule 1 04/14/2023 Active traZODone (DESYREL) 100 mg tablet Take 1 and 1/2 tablets orally bedtime 135 Tablet 1 04/16/2023 Active furosemide (LASIX) 40 mg tablet Take 1 Tablet (40 mg) by mouth once daily. 90 Tablet 1 04/28/2023 Active levothyroxine (SYNTHROID) 50 mcg tablet Take 1 Tablet (50 mcg) by mouth once daily. 90 Tablet 2 05/27/2023 Active minocycline (MINOCIN) 100 mg capsuleIndicati ons:Acne vulgaris Take 1 Capsule (100 mg) by mouth 2 times daily. 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 S/P total knee arthroplasty, left 04/05/2019 CKD (chronic kidney disease) stage 2, GFR 60-89 ml/min 04/05/2019 Depression 04/05/2019 Chronic pain of both knees 10/22/2018 Arthritis of right knee 10/22/2018 History of colon polyps Resolved Problems Problem Noted Date Diagnosed Date Resolved Date Pain in joint of right knee 03/10/2019 04/08/2019 Arthritis of left knee 10/22/201804/08 Effusion of left knee 10/22/20182018 Mechanical pain of right knee 01/01/2018 04/08/2019 Chronic pain of right knee 12/10/2017 0 04/08/2019 Effusion of right knee 12/10/201704/08 Articular cartilage disorder of right knee 12/10/2017 04/08/2019 Pes anserine bursitis 12/10/20172018 Immunizations Name Administration Dates Next Due COVID-19 vaccine (Moderna 100mcg/0.5mL) PF, MDV 02/07/2021,12/13/2020 Hepatitis B (Adult) 02/15/2004 Influenza, IIV3 (Age 6-35 mos) 05/07/2009 Influenza, IIV3 (Age >=3 years) 06/06/20 10,06/08/2008,06/11/2007, 005,05/30/2003,06/02/2002,08/20/2001 Influenza, IIV4 06/26/2020, 9,05/25/2018, 018,05/13/2017 Tdap 09/21/2017,04/07/2008 Zoster (Shingrix-RZV, recombinant) 06/26/2020 Family History Medical History Relation Name Comments Depression Daughter Rheum arthritis Daughter Depression Maternal Grandmother Osteoarthritis Maternal Grandmother Thyroid Disease Maternal Grandmother Clotting disorder Mother pulm embol i, Factor 2 Depression Mother Osteoarthritis Mother Rheum arthritis Mother Depression Paternal Grandmother Diabetes Paternal Grandmother Cancer-breast No Family History Relation Name Status Comments Daughter Alive Father Alive Maternal Grandmother Mother Alive Paternal Grandmother Social History Tobacco Use Types Packs/Day Years Used Date Smoking Tobacco: Never Smokeless Tobacco: Never Tobacco Cessation:Counseling Given: Yes Alcohol Use Standard Drinks/Week Comments Yes 0 (1 standard drink = 0.6 oz pur e alcohol) occ PHQ-2 Answer Date Recorded PHQ-2 TOTAL SCORE 0 01/11/2021 Social Connections Answer Date Recorded Frequency of Communication with Friends and Fami ly Not on file 08/07/2021 Financial Resource Strain Answer Date R ecorded Difficulty of Paying Living Expenses Not on file 08/07/2021 Difficulty of Paying Living Expenses Not on file 08/07/2021 Sex and Gender Information Value Date Recorded Sex Assigned at Not on file Gender Identity Not on file Sexual Orientation Not on file Obstetrics History Last Filed Vital Signs Vital Sign Reading Time Taken Comments Blood Pressure 122/78 04/09/2021 11:08 AM CDT Pulse 80 12/04/2022 10:02 AM CDT Temperature 37.2 ??C (98.9 ??F) 01/08/2021 9:23 AM CD T Respiratory Rate 18 01/08/2021 9:23 AM CDT Oxygen Saturation 98% 12/04/2022 10:02 AM CDT Inhaled Oxygen Concentration - - Weight 93.9 kg (207 lb) 12/04/2022 10:02 AM CDT Height 172.7 cm (5' 8) 04/09/2021 11:08 AM CDT Body Mass Index 31.47 04/09/2021 11:08 AM CDT Plan of Treatment Health Maintenance Due Date Last Done Comments HIV for age 15-65 10/26/1979 Zoster (shingles) series for age 50+ (2 of 2) 08/21/2020 06/26/2020 Mammogram for age 45-75 09/07/2021 09/07/2020, 08/24 Depression screening for age 12+ 01/11/2022 01/11/2021, 01/08/2021, 10/17/2019, Additional history exists BMI (ht and wt on same day) for age 18+ 04/09/2022 04/09/2021, 01/11/2021, 01/08/2021, Additional history exists COVID-19 vaccine series ( season) 2023 08/12/2021, 02/07/2021, 12/13/2020 Influenza for age 50-64 04/17/2023 06/26/20 20, 07/04/2019, 05/25/2018, Additional history exists Colonoscopy through age 75 07/14/2023 07/14/2018 Lipids for age 45-75 04/09/2026 04/09/2021, 06/22/20 18 Tetanus booster 09/21/2027 09/21/2017, 04/07/2008 Tdap Completed 09/21/2017, 04/07/2008 Hepatitis C screening for age 18-79 Completed 06/22/2018 Pneumococcal series for age 6-64 Aged Out No longer eligible based on patient's age to complete this topic Medical Devices Implanted Type Area Housekeeper Cleaning Cooking Device Identifier Shelf Expiration Date Model / Serial / Lot Cmnt Bone 40gm Santiago Ab - [id number] Implanted:Qty: 2 on 04/05/2019 by French Torres MD at [facility] Left: Knee [employer] 10/15/2023 [id number] / / [id number] 29mm Oval Michelle Ii Resurfacing Patellar Component Implanted:Qty: 1 on 04/05/2019 by French Torres MD at [facility] Left: Knee [employer] 12/06/2028 [id number] / / [id number] Size 6 Left Bi-Cruciate Stabilized Journey Ii Bcs Oxinoim Femoral Component Implanted:Qty: 1 on 04/05/2019 by French Torres MD at [facility] Left: Knee [employer] 12/09/2028 [id number] / / [id number] Size 4 Left Journey Nonporous Tibial Baseplate Implanted:Qty: 1 on 04/05/2019 by French Torres MD at [facility] Left: Knee [employer] 11/01/2028 [id number] / / [id number] Left, Size 3-4, 9mm Journey Ii Bcs Xl Pe A/P 48mm M/L 68 Mm Articular Insert Implanted:Qty: 1 on 04/05/2019 by French Torres MD at [facility] Left: Knee [employer] 01/20/2027 [id number] / / [id number] Advance Directives Latest Code Status on File Code Status Date Activated Date Inactivated Comments Full Code 04/07/2019 11:24 PM 04/09/2019 3:34 PM Question Answer Comments Code Status Discussion: Discussed Code Status History Code Status Date Activated Date Inactivated Comments Full Code 04/05/2019 6:12 AM 04/07/2019 10:02 PM Question Answer Comments Code Status Discussion: Discussed Care Teams Applications Support Lead Relationship Specialty Start Date End Date Jack Zavala MD [address] [place] [address] PCP - General Family Practice 03/31/22
--- OUTSIDE RECORDS SUMMARY | 2023-08-30 04:36 | XMS_ITS | Clinical Summary ---
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 For routine questions regarding patient records, call [phone] during business hours, M-F 8:00 AM - 5:00 PM Central Time. 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 [address] [place] [phone] Discharge Disposition: Home or Self Care Health Maintenance Due Date Last Done Comments CT Colonography 1964 Cervical Cancer Screening 1964 Cologuard 1964 Colonoscopy 1964 Colorectal Cancer Screening 1964 FIT 1964 HIV Screening 1964 Hepatitis C Screening 1965 Mammogram 1964 Hepatitis B Vaccines (2 of 3 - 19+ 3-dose series) 03/14/2004 02/15/2004 Zoster Vaccines (2 of 2) 08/21/2020 06/26/2020 Thyroid Stimulating Hormone (TSH) test for thyroid function 04/09/2022 04/09/2021, 09/27/2019 COVID-19 Vaccine (4 - season) 2023 08/12/2021, 02/07/2021, 12/13/2020 Influenza Vaccine (#1) 2023 , 04/28/2021, 06/26/2020, Additional history exists Depression Screening (Annual PHQ-2) 08/17/2023 Fasting Glucose for Diabetes Screening 04/09/2024 04/09/2021, 02/14/2020, 10/14/2019, Additional history exists Lipid (Cholesterol) Screening 04/09/2026 04/09/2021, 06/22/2018 DTaP,Tdap,and Td Vaccines (3 - Td or Tdap) 09/21/2027 09/21/2017, 04/07/2008 Pneumococcal vaccine (0-64 years) Aged Out 05/05/2014 No longer eligible based on patient's age to complete this topic
== END 2023-08-25 16:02 | disposition home or self-care (01) ==
LOC: NFLDREF 08-30 04:35
PROVIDERS: PCP Family Medicine; Referring Provider Family Medicine; Visit Provider Family Medicine
DX: R30.0 Dysuria (principal); N39.0 Urinary tract infection, site not specified; F41.1 Generalized anxiety disorder
CPT/HCPCS: 87086; 87186

== ENCOUNTER 2024-01-31 18:10 | Outpatient (CLI) | payer BC, SELFPAY ==
--- OUTSIDE RECORDS SUMMARY | 2024-02-02 22:17 | XMS_ITS | Patient Health Record ---
Author Organization [employer] Address [address] [facility] [place] [id number] Care Team Providers Care Lan Specialist Name Role Phone NONE, Use Primary Care Provider UnavailMikal Grayson Unavailable [phone] DO Baldwin Brian R. Unavailable Unavailable Allergies Allergen (clinical drug ingredient) Drug/Non Drug Allergy documented on EMR Reaction Allergy Type Onset Date Status Moderna COVID-19 Vaccine Unknown Drug Allergy Active Reason For Referral No Information Medications Medication SIG (Take, Route, Frequency, Duration) Notes Start Date End Date Status Wellbutrin Active Synthroid Active traZODone HCl Active CeleXA Active Mobic 15 MG 1 tablet Orally Once a day for 30 day(s) 10/09/2022 Active Minocycline HCl Acti ve Stool Softener & Laxative Active Social History Tobacco Use: Social History Observation Description Date Details (start date - stop date) Never Smoker NA - NA Tobacco Use/Smoking Question Answer Notes Are you [...] Never (0 point) Points 1 Interpretation Negative Problems Problem Type SNOMED Code ICD Code Onset Dates Problem Status W/U Status Risk Notes Problem Overweight (632901055) Overweight (E66.3) Active confirmed Problem Pain in left foot (82896128823549 7) Pain in left foot (M79.672) Active confirmed Plan Of Treatment Pending Test Test Name Order Date ROUTINE VENIPUNCTURE 10/09/2022 Medical (General) History Medical History History ICD Code depression fibromyalgia thyroid one working kidney factor 2 clotting disorder Surgical History Surgery Date(Month/Year) hysterectomy cholecystectomy appendectomy ankle surgery wrist hip, Left x 3 Hospitalization History Reason Date(Month/Year) surgery
--- OUTSIDE RECORDS SUMMARY | 2024-02-02 22:18 | XMS_ITS | Encounter Summary ---
Author Organization [facility] Address [address] [place] [address] Care Team Providers Care Furniture Removalist'S Assistant Name Role Phone Elsewhere, Pcp Primary Care Provider Unavailabl e Reason for Referral * Outpatient (Routine) - Closed Specialty Diagnoses / Procedures Referred By Fawad ruffin Referred To Contact Orthopedic Surgery Mercy Brown D.PJennieMJennie [address] [place] [phone] [facility] Region Referral ID Status Reason Start Date Expiration Date Visits Re quested Visits Authorized [id number] Closed 11/18/2023 05/19/2025 1 1 Scheduling Instructions 11/23/23 at 0800 for 30 min post op Reason for Visit * Reason Comments Post-op Post op fusion left 2nd toe * Outpatient (Routine) - Closed Specialty Diagnoses / Procedures Referred By Fawad ruffin Referred To Contact Orthopedic Surgery Mercy Brown D.PJennieMJennie [address] [place] [phone] [facility] Region Referral ID Status Reason Start Date Expiration Date Visits Re quested Visits Authorized [id number] Closed 10/20/2023 04/20/2025 1 1 Encounter Details Date Type Department Care Team (Late st Contact Info) Description 11/18/2023 8:00 AM CDT Office Visit Department of Orthopedic Surgery in [address] [phone] [facility] Brown D.P.M. [address] [facility] [place] [phone] Follow Up Surgery Exam (Primary Dx) Discharge [...] November 05, 2023. Procedure was performed at [place], [place]. Surgical procedure(s) performed Mercy Ojeda D.P.M.. [...] Primary documented in this encounter Care Teams Furniture Removalist'S Assistant Relationship Specialty Start Date End Date Elsewhere, Pcp PCP - General Internal Medicine 10/29/23 documented as of this encounter
--- OUTSIDE RECORDS SUMMARY | 2024-02-02 22:18 | XMS_ITS | Encounter Summary ---
Author Organization [facility] Address [address] [place] [address] Care Team Providers Care Rag Grader Name Role Phone Elsewhere, Pcp Primary Care Provider Unavailabl e Reason for Referral * Outpatient (Routine) - Closed Specialty Diagnoses / Procedures Referred By Penelopeac t Referred To Contact Diagnoses Swelling Toe Procedures DX Toes Left 3 Views Mercy Brown D.P.M. [address] [place] [phone] [facility] Referral ID Status Reason Start Date Expiration Date Visits Re quested Visits Authorized [id number] Closed 12/28/2023 12/27/2024 1 1 Reason for Visit * Outpatient (Routine) - Closed Specialty Diagnoses / Procedures Referred By Fawad t Referred To Contact Diagnoses Swelling Toe Procedures DX Toes Left 3 Views Mercy Brown D.P.MJennie [address] [place] [phone] [facility] Referral ID Status Reason Start Date Expiration Date Visits Re quested Visits Authorized [id number] Closed 12/28/2023 12/27/2024 1 1 Encounter Details Date Type Department Care Team (Latest Contact Info) Description 01/04/2024 7:50 AM CDT - 01/04/2024 11:59 PM CDT Hospital Encounter Department of Radiology in [address] [phone] Mercy Najera D.P.M. [address] [place] [phone] Swelling Toe Discharge Disposition: Home or Self [...] Toe documented in this encounter Care Teams Rag Grader Relationship Specialty Start Date End Date Elsewhere, Pcp PCP - General Internal Medicine 10/29/23 documented as of this encounter
--- OUTSIDE RECORDS SUMMARY | 2024-02-02 22:18 | XMS_ITS | Encounter Summary ---
Author Organization [facility] Address [address] [place] [address] Care Team Providers Care Brush Material Preparer Name Role Phone Elsewhere, Pcp Primary Care Provider Unavailabl e Reason for Referral * Outpatient (Routine) - Closed Specialty Diagnoses / Procedures Referred By Fawad ruffin Referred To Contact Diagnoses Follow Up Surgery Exam Fracture Lesser Toe Middle Phalanx Displaced Closed Initial Left Procedures DX Toes Left 3 Views Mercy Brown D.P.MJennie [address] [place] [phone] [facility] Region Referral ID Status Reason Start Date Expiration Date Visits Re quested Visits Authorized [id number] Closed 12/08/2023 12/07/2024 1 1 Reason for Visit * Outpatient (Routine) - Closed Specialty Diagnoses / Procedures Referred By Fawad ruffin Referred To Contact Diagnoses Follow Up Surgery Exam Fracture Lesser Toe Middle Phalanx Displaced Closed Initial Left Procedures DX Toes Left 3 Views Mercy Brown D.P.MJennie [address] [place] [address] [facility] Region Referral ID Status Reason Start Date Expiration Date Visits Re quested Visits Authorized [id number] Closed 12/08/2023 12/07/2024 1 1 Encounter Details Date Type Department Care Team (Latest Contact Info) Description 12/08/2023 1:06 PM CDT - 12/08/2023 11:59 PM CDT Hospital Encounter Department of Radiology in [place], [place] [address] [place] [phone] Mercy Najera D.P.M. [address] [place] [phone] Follow Up Surgery Exam; Fracture Lesser Toe [...] Left documented in this encounter Care Teams Brush Material Preparer Relationship Specialty Start Date End Date Elsewhere, Pcp PCP - General Internal Medicine 10/29/23 documented as of this encounter
--- OUTSIDE RECORDS SUMMARY | 2024-02-02 22:18 | XMS_ITS | Encounter Summary ---
Author Organization [facility] Address [address] [place] [address] Care Team Providers Care Head Swamper Name Role Phone Elsewhere, Pcp Primary Care Provider Unavailabl e Reason for Referral * Outpatient (Routine) - Closed Specialty Diagnoses / Procedures Referred By Contac t Referred To Contact Orthopedic Surgery Mercy Brown D.P.M. [address] [place] [phone] [facility] Referral ID Status Reason Start Date Expiration Date Visits Re quested Visits Authorized [id number] Closed 11/23/2023 05/24/2025 1 1 Scheduling Instructions Post op * Outpatient (Routine) - Authorized Specialty Diagnoses / Procedures Referred By Contac t Referred To Contact Orthopedic Surgery Diagnoses Fracture Lesser Toe Middle Phalanx Displaced Closed Initial Left Mercy Brown D.P.M. [address] [place] [phone] [facility] Region Referral ID Status Reason Start Date Expiration Date V isits Requested Visits Authorized [id number] Authorized 11/23/2023 05/24/2025 1 1 * Outpatient (Routine) - Closed Specialty Diagnoses / Procedures Referred By Contac t Referred To Contact Diagnoses Fracture Lesser Toe Middle Phalanx Displaced Closed Initial Left Procedures DX Toes Left 3 Views Mercy Brown D.P.M. [address] [place] [phone] [facility] Region Referral ID Status Reason Start Date Expiration Date Visits Re quested Visits Authorized [id number] Closed 11/23/2023 11/22/2024 1 1 Reason for Visit * Reason Comments Post-op S/P ORIF middle phal anx and fusion of the proximal interphalangeal joint left 2nd toe (DOS:11/05/2023) * Outpatient (Routine) - Closed Specialty Diagnoses / Procedures Referred By Fawad ruffin Referred To Contact Orthopedic Surgery Mercy Brown D.P.M. [address] [place] [phone] [facility] Referral ID Status Reason Start Date Expiration Date Visits Re quested Visits Authorized [id number] Closed 11/18/2023 05/19/2025 1 1 Encounter Details Date Type Department Care Team (Late st Contact Info) Description 11/23/2023 8:00 AM CDT Office Visit Department of Orthopedic Surgery in [address] [phone] Mercy Brown D.PJennieMJennie [address] [place] [phone] Fracture Lesser Toe Middle Phalanx Displaced [...] November 05, 2023. Procedure was performed at [place], [place]. Surgical procedure(s) performed Mercy Ojeda D.P.M.. [...] Left documented in this encounter Care Teams Head Swamper Relationship Specialty Start Date End Date Elsewhere, Pcp PCP - General Internal Medicine 10/29/23 documented as of this encounter
--- OUTSIDE RECORDS SUMMARY | 2024-02-02 22:18 | XMS_ITS | Encounter Summary ---
Author Organization [facility] Address [address] [place] [address] Care Team Providers Care Porcelain Turner Name Role Phone Elsewhere, Pcp Primary Care Provider Unavailabl e Reason for Referral * Outpatient (Routine) - Closed Specialty Diagnoses / Procedures Referred By Contac t Referred To Contact Diagnoses Fracture Lesser Toe Middle Phalanx Displaced Closed Initial Left Procedures DX Toes Left 3 Views Meryc Brown D.PJennieM. [address] [place] [phone] [facility] Region Referral ID Status Reason Start Date Expiration Date Visits Re quested Visits Authorized [id number] Closed 11/23/2023 11/22/2024 1 1 Reason for Visit * Outpatient (Routine) - Closed Specialty Diagnoses / Procedures Referred By Contac t Referred To Contact Diagnoses Fracture Lesser Toe Middle Phalanx Displaced Closed Initial Left Procedures DX Toes Left 3 Views Mercy Brown D.P.M. [address] [place] [phone] [facility] Region Referral ID Status Reason Start Date Expiration Date Visits Re quested Visits Authorized [id number] Closed 11/23/2023 11/22/2024 1 1 Encounter Details Date Type Department Care Team (Latest Contact Info) Description 11/23/2023 8:24 AM CDT - 11/23/2023 11:59 PM CDT Hospital Encounter Department of Radiology in [place], [place] [address] [place] [phone] Mercy Najera D.P.M. [address] [place] [phone] Fracture Lesser Toe Middle Phalanx [...] Left documented in this encounter Care Teams Porcelain Turner Relationship Specialty Start Date End Date Elsewhere, Pcp PCP - General Internal Medicine 10/29/23 documented as of this encounter
--- OUTSIDE RECORDS SUMMARY | 2024-02-02 22:18 | XMS_ITS | Encounter Summary ---
Author Organization [facility] Address [address] [place] [address] Care Team Providers Care Rotating Equipment Engineer Name Role Phone Elsewhere, Pcp Primary Care Provider Unavailabl e Reason for Referral * Outpatient (Routine) - Closed Specialty Diagnoses / Procedures Referred By Penelopeac t Referred To Contact Diagnoses Pain Foot Left Procedures FL Fluoro Less Than 1 Hour Mercy Brown D.PJennieMJennie [address] [place] [phone] [facility] Referral ID Status Reason Start Date Expiration Date Visits Re quested Visits Authorized [id number] Closed 11/05/2023 11/04/2024 1 1 Reason for Visit * Outpatient (Routine) - Closed Specialty Diagnoses / Procedures Referred By Fawad t Referred To Contact Diagnoses Pain Foot Left Procedures FL Fluoro Less Than 1 Hour Mercy Brown D.P.MJennie [address] [place] [phone] [facility] Referral ID Status Reason Start Date Expiration Date Visits Re quested Visits Authorized [id number] Closed 11/05/2023 11/04/2024 1 1 Encounter Details Date Type Department Care Team (Latest Contact Info) Description 11/05/2023 7:27 AM CDT - 11/05/2023 7:35 AM CDT Hospital Encounter Department of Radiology in [address] [phone] Mercy Najera D.P.M. [address] [facility] FAVIOLA Piper [phone] Pain Foot Left [...] Left documented in this encounter Care Teams Rotating Equipment Engineer Relationship Specialty Start Date End Date Elsewhere, Pcp PCP - General Internal Medicine 10/29/23 documented as of this encounter
--- OUTSIDE RECORDS SUMMARY | 2024-02-02 22:18 | XMS_ITS | Encounter Summary ---
Author Organization [facility] Address [address] [place] [address] Care Team Providers Care Silk Spreader Name Role Phone Elsewhere, Pcp Primary Care Provider Unavailabl e Reason for Visit * Reason Onset Date Comments Nurse Assessment 12/24/2023 Post op questio n for podiatry Encounter Details Date Type Department Care Team (Latest Contact Info) Description 12/24/2023 Clinical Communication Department of Orthopedic Surgery in [place], [place] [address] [place] [phone] Mercy Hernández am, D.P.M. [address] [place] [phone] Nurse Assessment (Post op question for podiatry) [...] on filedocumented in this encounter Care Teams Silk Spreader Relationship Specialty Start Date End Date Elsewhere, Pcp PCP - General Internal Medicine 10/29/23 documented as of this encounter
--- OUTSIDE RECORDS SUMMARY | 2024-02-02 22:18 | XMS_ITS | Encounter Summary ---
Author Organization [facility] Address [address] [place] [address] Care Team Providers Care Coding Auditor Name Role Phone Elsewhere, Pcp Primary Care Provider Unavailabl e Encounter Details Date Type Department Care Team (Late st Contact Info) Description 01/25/2024 Clinical Communication Primary Care on Demand at [facility] [address] [place] [phone] Aba Santos M.D. [address] [place] [phone] Social History Tobacco Use Types [...] on filedocumented in this encounter Care Teams Coding Auditor Relationship Specialty Start Date End Date Elsewhere, Pcp PCP - General Internal Medicine 10/29/23 documented as of this encounter
--- OUTSIDE RECORDS SUMMARY | 2024-02-02 22:18 | XMS_ITS | Encounter Summary ---
Author Organization [facility] Address [address] [place] [address] Care Team Providers Care Consumer Advocate Name Role Phone Elsewhere, Pcp Primary Care Provider Unavailabl e Reason for Visit * Auth/Cert (Routine) Specialty Diagnoses / Procedures Referred By Fawad t Referred To Contact Diagnoses Hammer Toe Acquired Left Fracture Lesser Toe Middle Phalanx Displaced Closed Initial Left Arthritis Toe Hammer Toe Acquired Left [M20.42] Fracture Lesser Toe Middle Phalanx Displaced Closed Initial Left [S92.522A] Arthritis Toe [M19.90] Procedures NV OPN TX PHALANX FX NV CORRECTION HAMMERTOE OPEN REDUCTION INTERNAL FIXATION Middle PHALANX 2nd toe ARTHRODESIS proximal interphalangeal joint 2nd TOE Referral ID Status Reason Start Date Expiration Date Visits Re quested Visits Authorized [id number] 1 1 Encounter Details Date Type Department Care Team (Late st Contact Info) Description 11/05/2023 8:50 AM CDT - 11/05/2023 10:45 AM CDT Surgery Outpatient Procedure Center in [place], [place] [address] [place] [phone] Mercy Brown D.PJennieM. [address] [place] [phone] OPEN REDUCTION INTERNAL FIXATION Middle PHALANX 2nd [...] None Operative Note Narrative Kelly presented [place] [facility] [place] [facility] for [place] surgery to her left foot. [...] phalanx was removed with sagittal saw for [id number] contact for fusion. Using a Synthes 2.0 [...] for discharge. She is scheduled to follow [facility] for postoperative care. Mercy Brown D.P.M. [...] 0839 (Given - Provid er: Millicent Lopez, SUPERVISOR LITHARGE, NATIONAL RECRUITER, MNA, R.N.) Lactated Ringer's (COMPLETED) 20 mL/hr, [...] older documented in this encounter Care Teams Consumer Advocate Relationship Specialty Start Date End Date Elsewhere, Pcp PCP - General Internal Medicine 10/29/23 documented as of this encounter
--- OUTSIDE RECORDS SUMMARY | 2024-02-02 22:18 | XMS_ITS | Encounter Summary ---
Author Organization [facility] Address [address] [place] [address] Care Team Providers Care Elderly Sitter Name Role Phone Elsewhere, Pcp Primary Care Provider Unavailabl e Reason for Referral * Outpatient (Routine) - Closed Specialty Diagnoses / Procedures Referred By Fawad ruffin Referred To Contact Diagnoses Follow Up Surgery Exam Fracture Lesser Toe Middle Phalanx Displaced Closed Initial Left Procedures DX Toes Left 3 Views Mercy Brown D.PJennieMJennie [address] [place] [phone] [facility] Region Referral ID Status Reason Start Date Expiration Date Visits Re quested Visits Authorized [id number] Closed 12/08/2023 12/07/2024 1 1 Reason for Visit * Reason Comments Post-op S/P ORIF middle phal anx and fusion of the proximal interphalangeal joint left 2nd toe (DOS:11/05/2023) * Outpatient (Routine) - Closed Specialty Diagnoses / Procedures Referred By Fawad ruffin Referred To Contact Orthopedic Surgery Mercy Brown D.PJennieMJennie [address] [place] [address] [facility] Referral ID Status Reason Start Date Expiration Date Visits Re quested Visits Authorized [id number] Closed 11/23/2023 05/24/2025 1 1 Encounter Details Date Type Department Care Team ([facility] st Contact Info) Description 12/08/2023 1:00 PM CDT Office Visit Department of Orthopedic Surgery in [place], [place] [address] [place] [phone] Mercy Brown D.P.M. [address] [place] [phone] Follow Up Surgery Exam (Primary Dx); Fracture [...] November 05, 2023. Procedure was performed at [place], [place]. Surgical procedure(s) performed Mercy Ojeda D.P.M.. [...] Left documented in this encounter Care Teams Elderly Sitter Relationship Specialty Start Date End Date Elsewhere, Pcp PCP - General Internal Medicine 10/29/23 documented as of this encounter
--- OUTSIDE RECORDS SUMMARY | 2024-02-02 22:18 | XMS_ITS | Encounter Summary ---
Author Organization [facility] Address [address] [place] [address] Care Team Providers Care Front Desk Admin Name Role Phone Elsewhere, Pcp Primary Care Provider Unavailabl e Reason for Referral * Outpatient (Routine) - Closed Specialty Diagnoses / Procedures Referred By Fawad ruffin Referred To Contact Orthopedic Surgery Mercy Brown D.P.M. [address] [place] [phone] Mercy Brown D.P.MJennie [address] [place] [phone] Referral ID Status Reason Start Date Expiration Date Visits Re quested Visits Authorized [id number] Closed 12/08/2023 06/08/2025 1 1 Scheduling Instructions Post op, Ingrsarath Toenail Encounter Details Date Type Department Care Team (Late st Contact Info) Description 12/08/2023 Orders Only Department of Orthopedic Surgery in [place], [place] [address] [place] [phone] Jeanie Pina, LJennieP.N. Social History Tobacco [...] on filedocumented in this encounter Care Teams Front Desk Admin Relationship Specialty Start Date End Date Elsewhere, Pcp PCP - General Internal Medicine 10/29/23 documented as of this encounter
--- OUTSIDE RECORDS SUMMARY | 2024-02-02 22:18 | XMS_ITS | Encounter Summary ---
Author Organization [facility] Address [address] [place] [address] Care Team Providers Care Broadcast Supervisor Name Role Phone Elsewhere, Pcp Primary Care Provider Unavailabl e Reason for Visit * Auth/Cert (Routine) Specialty Diagnoses / Procedures Referred By Fawad t Referred To Contact Diagnoses Hammer Toe Acquired Left Fracture Lesser Toe Middle Phalanx Displaced Closed Initial Left Arthritis Toe Hammer Toe Acquired Left [M20.42] Fracture Lesser Toe Middle Phalanx Displaced Closed Initial Left [S92.522A] Arthritis Toe [M19.90] Procedures [place] OPN TX PHALANX FX W[place] CORRECTION HAMMERTOE OPEN REDUCTION INTERNAL FIXATION Middle PHALANX 2nd toe ARTHRODESIS proximal interphalangeal joint 2nd TOE Referral ID Status Reason Start Date Expiration Date Visits Re quested Visits Authorized [id number] 1 1 Encounter Details Date Type Department Care Team (Late st Contact Info) Description 11/05/2023 8:31 AM CDT Anesthesia Event Outpatient Procedure Center in [address] [phone] Jeanie Mcgill M.D. [address] [place] [phone] Anesthesia Record Procedure Summary Procedure Name Responsible [...] gauze, kerlix, hector, boot 11/05/23 0845 by aSvanah Hayes, R.N. Peripheral IV Placement Date: 10/16 [...] Procedure Summary Date: 11/05/23 Room / Location: [place] [address] / [facility] Anesthesia Start: 830 Anesthesia Stop: 932 Procedures: [...] [S92.522A] Arthritis Toe [M19.90] Location: OR [address] [facility] Providers: Mercy Brown D.P.M. Pertinent components of [...] with patient /legal guardian or through an accountant cost. The use of blood products not discussed [...] mg documented in this encounter Care Teams Broadcast Supervisor Relationship Specialty Start Date End Date Elsewhere, Pcp PCP - General Internal Medicine 10/29/23 documented as of this encounter
--- OUTSIDE RECORDS SUMMARY | 2024-02-02 22:18 | XMS_ITS | Encounter Summary ---
Author Organization [facility] Address [address] [place] [address] Care Team Providers Care Graphic Production Artist Name Role Phone Elsewhere, Pcp Primary Care Provider Unavailabl e Reason for Visit * Reason Comments Post-op 1st Post op open red uction internal fixation left foot * Outpatient (Routine) - Closed Specialty Diagnoses / Procedures Referred By Fawad ruffin Referred To Contact Orthopedic Surgery Mercy Brown D.PJennieMJennie [address] [place] [address] [facility] Referral ID Status Reason Start Date Expiration Date Visits Re quested Visits Authorized [id number] Closed 10/20/2023 04/20/2025 1 1 Encounter Details Date Type Department Care Team (Late st Contact Info) Description 11/11/2023 11:00 AM CDT Office Visit Department of Orthopedic Surgery in [place], [place] [address] [place] [phone] Mercy Brown D.PJennieMJennie [address] [place] [phone] Follow Up Surgery Exam (Primary [...] November 05, 2023. Procedure was performed at [place], [place]. Surgical procedure(s) performed Mercy Ojeda D.P.M.. [...] Primary documented in this encounter Care Teams Graphic Production Artist Relationship Specialty Start Date End Date Elsewhere, Pcp PCP - General Internal Medicine 10/29/23 documented as of this encounter
--- OUTSIDE RECORDS SUMMARY | 2024-02-02 22:18 | XMS_ITS ---
Author Organization [facility] Address [address] [place] [address] Care Team Providers Care Process Artist Name Role Phone Unavailable Unavailable Unavailable Surgery Details Not on file Complications Check Surgery Details section. Procedure Estimated Blood Loss Check Surgery Details section. Procedure Findings Check Surgery Details section. Procedure Specimens Taken Check Surgery Details section.
--- OUTSIDE RECORDS SUMMARY | 2024-02-02 22:18 | XMS_ITS | Encounter Summary ---
Author Organization [facility] Address [address] [place] [address] Care Team Providers Care Molecular Biology Scientist Name Role Phone Elsewhere, Pcp Primary Care [...] on filedocumented in this encounter Care Teams Molecular Biology Scientist Relationship Specialty Start Date End Date Elsewhere, Pcp PCP - General Internal Medicine 10/29/23 documented as of this encounter
--- OUTSIDE RECORDS SUMMARY | 2024-02-02 22:18 | XMS_ITS | Encounter Summary ---
Author Organization [facility] Address [address] [place] [address] Care Team Providers Care Keel Press Operator Name Role Phone Elsewhere, Pcp Primary Care Provider Unavailabl e Encounter Details Date Type Department Care Team (Late st Contact Info) Description 01/20/2024 Clinical Communication Primary Care on Demand at [facility] [address] [place] [address] Aba Santos M.D. [address] [place] [address] Social History Tobacco Use Types [...] on filedocumented in this encounter Care Teams Keel Press Operator Relationship Specialty Start Date End Date Elsewhere, Pcp PCP - General Internal Medicine 10/29/23 documented as of this encounter
--- OUTSIDE RECORDS SUMMARY | 2024-02-02 22:18 | XMS_ITS | Clinical Summary ---
Author Organization [facility] Address [address] [place] [address] Care Team Providers Care Concrete Hopper Operator Name Role Phone Elsewhere, Pcp Primary Care Provider Unavailabl e Source Comments Patient records contain information from all sites at [facility]. For routine questions regarding patient records, call [phone] during business hours, M-F 8:00 AM - 5:00 PM Central Time. Record requests for emergency care only can be directed to [phone] at any time.[facility] Allergies Active Allergy Reactions Criticality Noted [...] Clinical Communication Primary Care on Demand at [address] [phone] Aba Santos M.D. 01/20/2024 Clinical Communication Primary Care on Demand at [address] [address] Aba Santos M.D. 01/04/2024 8:30 AM CDT Office Visit Department of Orthopedic Surgery in [address] [phone] Mercy Hernández am, D.PJennieMJennie Ingrown Nail (Primary Dx) Discharge Disposition: Home or Self Care 01/04/2024 7:50 AM CDT - 01/04/2024 11:59 PM CDT Hospital Encounter Department of Radiology in [address] [phone] Mercy Hernández am, D.PJennieMJennie Swelling Toe Discharge Disposition: Home or Self Care 12/28/2023 Orders Only Department of Orthopedic Surgery in [address] [phone] Mercy Hernández am, D.P.M. Swelling Toe (Primary Dx) 12/24/2023 Clinical Communication Department of Orthopedic Surgery in [address] [phone] Mercy Hernández am, D.P.M. Nurse Assessment (Post op question for podiatry) 12/08/2023 1:06 PM CDT - 12/08/2023 11:59 PM CDT Hospital Encounter Department of Radiology in [address] [phone] Mercy Hernández am, D.PBradley Follow Up Surgery Exam; Fracture Lesser Toe Middle Phalanx Displaced Closed Initial Left Discharge Disposition: Home or Self Care 12/08/2023 1:00 PM CDT Office Visit Department of Orthopedic Surgery in [address] [phone] Mercy Hernández am, D.PBradley Follow Up Surgery Exam (Primary Dx); Fracture Lesser Toe Middle Phalanx Displaced Closed Initial Left Discharge Disposition: Home or Self Care 12/08/2023 Orders Only Department of Orthopedic Surgery in [address] [phone] Jeanie Pina L.P.NJennie 11/23/2023 8:24 AM CDT - 11/23/2023 11:59 PM CDT Hospital Encounter Department of Radiology in [address] [phone] Mercy Hernández am, D.PBradley Fracture Lesser Toe Middle Phalanx Displaced Closed Initial Left Discharge Disposition: Home or Self Care 11/23/2023 8:00 AM CDT Office Visit Department of Orthopedic Surgery in [address] [phone] Mercy Hernández am, D.PBradley Fracture Lesser Toe Middle Phalanx Displaced Closed Initial Left (Primary Dx); Follow Up Surgery Exam Discharge Disposition: Home or Self Care 11/18/2023 8:00 AM CDT Office Visit Department of Orthopedic Surgery in [address] [address] Mercy Hernández am, D.P.M. Follow Up Surgery Exam (Primary Dx) Discharge Disposition: Home or Self Care 11/11/2023 11:00 AM CDT Office Visit Department of Orthopedic Surgery in [address] [address] Mercy Hernández am, D.P.M. Follow Up Surgery Exam (Primary Dx) Discharge Disposition: Home or Self Care 11/05/2023 9:15 AM CDT Ancillary Procedure Department of General Surgery 11/05/2023 8:55 AM CDT Ancillary Procedure Department of General Surgery 11/05/2023 8:50 AM CDT - 11/05/2023 10:45 AM CDT Surgery Outpatient Procedure Center in [address] [address] Mercy Hernández am, D.P.M. OPEN REDUCTION INTERNAL FIXATION Middle PHALANX 2nd toe 11/05/2023 8:31 AM CDT Anesthesia Event Outpatient Procedure Center in [address] [phone] Jeanie Mcgill M.D. 11/05/2023 7:36 AM CDT - 11/05/2023 10:50 AM CDT Hospital Encounter Outpatient Procedure Center in [address] [address] Mercy Hernández am, D.P.M. Fracture Lesser Toe Middle Phalanx Displaced Closed Initial Left (Primary Dx); Hammer Toe Acquired Left Discharge Disposition: Home or Self Care 11/05/2023 7:27 AM CDT - 11/05/2023 7:35 AM CDT Hospital Encounter Department of Radiology in [address] [place] [address] Mercy Hernández am, D.P.M. Pain Foot Left [...] 06/02/2022, 06/26/2020 Medical Devices Implanted Type Area Switch Repairer Device Identifier Shelf Expiration Date Model / Serial / Lot Scrw St Fthrd Nlck Sld 2.0x6 - [id number] Implanted:Qty: 2 on 11/05/2023 by Mercy Hogan D.P.MJennie at [facility] Hardware e.g. pins/screws/r ods Depuy Synthes 401.806.96 / / 24.[address] Fthrd Nlck Sld 2.0x7 - [id number] Implanted:Qty: 1 on 11/05/2023 by Mercy Hogan D.P.MJennie at [facility] Hardware e.g. pins/screws/r ods Depuy Synthes 401.807.96 / / 24.0 19 Pl[address] Hnd Lcd 4h Lck 2.4x24 - [id number] Implanted:Qty: 1 on 11/05/2023 by Mercy Hogan D.P.MJennie at [facility] Hardware e.g. pins/screws/r ods Depuy Synthes 449.931 [...] BILATERAL WITH TOMOSYNTHESIS Routine 09/07/2020 11:20 AM NARROW FABRIC LOOM FIXER from Last 3 Months or Most Recently [...] RAD IMAGI NG PROCEDURES Performing Organization Address City/[facility]/ZIP Co de Phone Number IIMS NA * Thyroid Function [place] (10/29/2023 1:04 PM CDT) TSH, Sensitive 2.1 0.3 - 4.2 mIU/L 10/29/2023 6:29 PM CDT OW[facility] Blood (Blood, Venous) 10/29/2023 1:04 PM CDT 10/29/2023 5:47 PM CDT Jailene Connors APRN, C.N.P., D .N.P. LAB BLOOD ADD[facility] [address] [place] [address], [place] [facility] [place] [address] [place] [address] * (ABNORMAL) Basic Metabolic Panel (10/29/2023 1:04 [...] Mercy Brown D.P.M. LAB BL OOD ADD-ON [facility] [address] [place] [address], [place] [facility] [place] [address] [place] [address] from Last 3 Months or Most Recently Relevant to Health Maintenance Advance Directives For more information, please contact: [phone] * Full Code (Latest Code Status on File) Date Activated Date Inactivated Comments 11/05/2023 9:43 AM 11/05/2023 12:56 PM Question Answer Comments Full Code: Discussed * Full Code Date Activated Date Inactivated Comments 11/05/2023 7:38 AM 11/05/2023 9:43 AM Question Answer Comments Full Code: Discussed Care Teams Concrete Hopper Operator Relationship Specialty Start Date End Date Elsewhere, Pcp PCP - General Internal Medicine 10/29/23
--- OUTSIDE RECORDS SUMMARY | 2024-02-02 22:18 | XMS_ITS | Referral Summary ---
Author Organization [facility] Address [address] [place] [address] Care Team Providers Care Confidential Investigator Name Role Phone Elsewhere, Pcp Primary Care Provider Unavailabl e Source Comments Patient records contain information from all sites at [facility]. For routine questions regarding patient records, call [phone] during business hours, M-F 8:00 AM - 5:00 PM Central Time. Record requests for emergency care only can be directed to [phone] at any time.[facility] Encounters Date Type Department Care Team Description 01/25/2024 Clinical Communication Primary Care on Demand at [address] [phone] Aba Santos M.D. 01/20/2024 Clinical Communication Primary Care on Demand at [address] [phone] Aba Santos M.D. 01/04/2024 7:50 AM CDT - 01/04/2024 11:59 PM CDT Hospital Encounter Department of Radiology in [address] [phone] Mercy Hernández am, D.PBradley Swelling Toe Discharge Disposition: Home or Self Care 01/04/2024 8:30 AM CDT Office Visit Department of Orthopedic Surgery in [address] [phone] Mercy Hernández am, D.PJennieMJennie Ingrown Nail (Primary Dx) Discharge Disposition: Home or Self Care 12/28/2023 Orders Only Department of Orthopedic Surgery in [address] [phone] Mercy Hernández am, D.P.M. Swelling Toe (Primary Dx) 12/24/2023 Clinical Communication Department of Orthopedic Surgery in [address] [phone] Mercy Hernández am, D.P.M. Nurse Assessment (Post op question for podiatry) 12/08/2023 Orders Only Department of Orthopedic Surgery in [address] [phone] Jeanie Pina L.P.N. 12/08/2023 1:06 PM CDT - 12/08/2023 11:59 PM CDT Hospital Encounter Department of Radiology in [address] [phone] Mercy Hernández am, D.P.MJennie Follow Up Surgery Exam; Fracture Lesser Toe Middle Phalanx Displaced Closed Initial Left Discharge Disposition: Home or Self Care 12/08/2023 1:00 PM CDT Office Visit Department of Orthopedic Surgery in [address] [phone] Mercy Hernández am, D.PJennieMJennie Follow Up Surgery Exam (Primary Dx); Fracture Lesser Toe Middle Phalanx Displaced Closed Initial Left Discharge Disposition: Home or Self Care 11/23/2023 8:24 AM CDT - 11/23/2023 11:59 PM CDT Hospital Encounter Department of Radiology in [address] [phone] Mercy Hernández am, D.PBradley Fracture Lesser Toe Middle Phalanx Displaced Closed Initial Left Discharge Disposition: Home or Self Care 11/23/2023 8:00 AM CDT Office Visit Department of Orthopedic Surgery in [address] [phone] Mercy Hernández am, D.P.M. Fracture Lesser Toe Middle Phalanx Displaced Closed Initial Left (Primary Dx); Follow Up Surgery Exam Discharge Disposition: Home or Self Care 11/18/2023 8:00 AM CDT Office Visit Department of Orthopedic Surgery in [address] [phone] Mercy Hernández am, D.PJennieMJennie Follow Up Surgery Exam (Primary Dx) Discharge Disposition: Home or Self Care 11/11/2023 11:00 AM CDT Office Visit Department of Orthopedic Surgery in [address] [phone] Mercy Hernández am, D.PBradley Follow Up Surgery Exam (Primary Dx) Discharge Disposition: Home or Self Care 11/05/2023 9:15 AM CDT Ancillary Procedure Department of General Surgery 11/05/2023 8:55 AM CDT Ancillary Procedure Department of General Surgery 11/05/2023 7:27 AM CDT - 11/05/2023 7:35 AM CDT Hospital Encounter Department of Radiology in [address] [phone] Mercy Hernández am, D.PBradley Pain Foot Left Discharge Disposition: Home or Self Care 11/05/2023 8:50 AM CDT - 11/05/2023 10:45 AM CDT Surgery Outpatient Procedure Center in [address] [phone] Mercy Hernández am, D.PJennieMJennie OPEN REDUCTION INTERNAL FIXATION Middle PHALANX 2nd toe 11/05/2023 8:31 AM CDT Anesthesia Event Outpatient Procedure Center in [address] [phone] Jeanie Mcgill M.D. 11/05/2023 7:36 AM CDT - 11/05/2023 10:50 AM CDT Hospital Encounter Outpatient Procedure Center in [address] [phone] Mercy Hernández am, D.P.M. Fracture Lesser Toe [...] on file Medical Devices Implanted Type Area Special Education Classroom Aide Device Identifier Shelf Expiration Date Model / Serial / Lot Scrw St Fthrd Nlck Sld 2.0x6 - [id number] Implanted:Qty: 2 on 11/05/2023 by Mercy Hogan D.P.MJennie at [facility] Hardware e.g. pins/screws/r ods Depuy Synthes [id number] / / 09.20.24.[address] Fthrd Nlck Sld 2.0x7 - [id number] Implanted:Qty: 1 on 11/05/2023 by Mercy Hogan D.P.MJennie at [facility] Hardware e.g. pins/screws/r ods Depuy Synthes 401.807.96 / / 24.0 19 Plt Hnd Lcd 4h Lck 2.4x24 - [id number] Implanted:Qty: 1 on 11/05/2023 by Mercy Hogan D.P.MJennie at [facility] Hardware e.g. pins/screws/r ods Depuy Synthes 449.931 [...] BILATERAL WITH TOMOSYNTHESIS Routine 09/07/2020 11:20 AM SPORT PSYCHOLOGIST from Last 3 Months or Most Recently [...] IMG FL UOROSCOPY PROCEDURES Performing Organization Address [facility]/ZIP Co de Phone Number 8000 LOS SEMN [...] RAD IMAGI NG PROCEDURES Performing Organization Address City/[facility]/ZIP Co de Phone Number IIMS NA * Thyroid Function [place] (10/29/2023 1:04 PM CDT) TSH, Sensitive 2.1 0.3 - 4.2 mIU/L 10/29/2023 6:29 PM CDT OW[facility] Blood (Blood, Venous) 10/29/2023 1:04 PM CDT 10/29/2023 5:47 PM CDT Jailene Connors APRN, C.N.P., D .N.P. LAB BLOOD ADD-ON [facility] [address] [place] [address], [facility] [place] [address] [place] [address] * (ABNORMAL) Basic Metabolic Panel (10/29/2023 1:04 [...] Mercy Brown D.P.M. LAB BL OOD ADD-ON [facility] [address] [place] [address], [place] OW[facility] [place] [address] [facility] [place] [address] from Last 3 Months or Most Recently Relevant to Health Maintenance Advance Directives For more information, please contact: [phone] * Full Code (Latest Code Status on File) Date Activated Date Inactivated Comments 11/05/2023 9:43 AM 11/05/2023 12:56 PM Question Answer Comments Full Code: Discussed * Full Code Date Activated Date Inactivated Comments 11/05/2023 7:38 AM 11/05/2023 9:43 AM Question Answer Comments Full Code: Discussed Care Teams Confidential Investigator Relationship Specialty Start Date End Date Elsewhere, Pcp PCP - General Internal Medicine 10/29/23
--- OUTSIDE RECORDS SUMMARY | 2024-02-02 22:18 | XMS_ITS | Encounter Summary ---
Author Organization [facility] Address [address] [place] [address] Care Team Providers Care Supervisor Paint Department Name Role Phone Elsewhere, Pcp Primary Care Provider Unavailabl e Reason for Referral * Outpatient (Routine) - Closed Specialty Diagnoses / Procedures Referred By Fawad ruffin Referred To Contact Diagnoses Swelling Toe Procedures DX Toes Left 3 Views Mercy Brown D.PJennieMJennie [address] [place] [address] [facility] Referral ID Status Reason Start Date Expiration Date Visits Re quested Visits Authorized [id number] Closed 12/28/2023 12/27/2024 1 1 Encounter Details Date Type Department Care Team (Late st Contact Info) Description 12/28/2023 Orders Only Department of Orthopedic Surgery in [place], [place] [address] [place] [address] Mercy Brown D.PJennieMJennie [address] [place] [address] Swelling Toe (Primary Dx) Social [...] Toe documented in this encounter Care Teams Supervisor Paint Department Relationship Specialty Start Date End Date Elsewhere, Pcp PCP - General Internal Medicine 10/29/23 documented as of this encounter
--- OUTSIDE RECORDS SUMMARY | 2024-02-02 22:18 | XMS_ITS | Encounter Summary ---
Author Organization [facility] Address [address] [place] [address] Care Team Providers Care Tentering Machine Feeder Name Role Phone Elsewhere, Pcp Primary Care [...] on filedocumented in this encounter Care Teams Tentering Machine Feeder Relationship Specialty Start Date End Date Elsewhere, Pcp PCP - General Internal Medicine 10/29/23 documented as of this encounter
--- OUTSIDE RECORDS SUMMARY | 2024-02-02 22:18 | XMS_ITS | Encounter Summary ---
Author Organization [facility] Address [address] [place] [address] Care Team Providers Care Coastal Tug Mate Name Role Phone Elsewhere, Pcp Primary Care Provider Unavailabl e Reason for Visit * Reason Comments Follow-up Left 2nd Toe Fractur e Follow Up Follow-up Right 5th Toe, Ingro wn Toenail * Outpatient (Routine) - Closed Specialty Diagnoses / Procedures Referred By Fawad t Referred To Contact Orthopedic Surgery Mercy Brown D.PJennieM. [address] [place] [address] Mercy Brown D.PJennieMJennie [address] [place] [address] Referral ID Status Reason Start Date Expiration Date Visits Re quested Visits Authorized [id number] Closed 12/08/2023 06/08/2025 1 1 Encounter Details Date Type Department Care Team (Late st Contact Info) Description 01/04/2024 8:30 AM CDT Office Visit Department of Orthopedic Surgery in [place], [place] [address] [place] [address] Mercy Brown D.PJennieM. [address] [place] [address] Ingrown Nail (Primary Dx) Discharge [...] the nail bed in total using a [place] elevator excised from distal to proximal in [...] care instructions were discussed and a printed [facility] postoperative instructions provided. If she has any concern she understands she cansent photos through portal. She states she has photos from previous foot problems and would like tosend those for her medical history. documented in this encounter Plan of Treatment Not on file documented as of this encounter Visit Diagnoses Diagnosis Ingrown Nail- Primary documented in this encounter Care Teams Coastal Tug Mate Relationship Specialty Start Date End Date Elsewhere, Pcp PCP - General Internal Medicine 10/29/23 documented as of this encounter
--- OUTSIDE RECORDS SUMMARY | 2024-02-02 22:19 | XMS_ITS | Encounter Summary ---
Author Organization [facility] Address [address] [place] [address] Care Team Providers Care Group Cio Name Role Phone Elsewhere, Pcp Primary Care Provider Unavailabl e Reason for Referral * Medication Prior Authorization - Closed Specialty Diagnoses / Procedures Referred By Fawad ruffin Referred To Contact Mercy Brown D.P.M. [address] [place] [address] Referral ID Status Reason Start Date Expiration Date Visits Re quested Visits Authorized [id number] Closed 1 1 Reason for Visit * Auth/Cert (Routine) Specialty Diagnoses / Procedures Referred By Fawad ruffin Referred To Contact Diagnoses Hammer Toe Acquired Left Fracture Lesser Toe Middle Phalanx Displaced Closed Initial Left Arthritis Toe Hammer Toe Acquired Left [M20.42] Fracture Lesser Toe Middle Phalanx Displaced Closed Initial Left [S92.522A] Arthritis Toe [M19.90] Procedures CO OPN TX PHALANX FX CO CORRECTION HAMMERTOE OPEN REDUCTION INTERNAL FIXATION Middle PHALANX 2nd toe ARTHRODESIS proximal interphalangeal joint 2nd TOE Referral ID Status Reason Start Date Expiration Date Visits Re quested Visits Authorized [id number] 1 1 Encounter Details Date Type Department Care Team (Latest Contact Info) Description 11/05/2023 7:36 AM CDT - 11/05/2023 10:50 AM CDT Hospital Encounter Outpatient Procedure Center in [address] [address] Mercy Najera D.P.M. [address] [facility] FAIVOLA Piper [phone] Fracture Lesser Toe Middle Phalanx Displaced Closed [...] None Operative Note Narrative Kelly presented to [facility] for outpatient surgery to her left foot. [...] phalanx was removed with sagittal saw for [id number] contact for fusion. Using a Synthes 2.0 [...] for discharge. She is scheduled to follow [facility] for postoperative care. Mercy Brown D.P.M. [...] Every 12 hours scheduled, First dose on Daa 11/05/23 at 0900, Pre-Op, Peripheral Intravenous Catheter [...] older documented in this encounter Care Teams Group Cio Relationship Specialty Start Date End Date Elsewhere, Pcp PCP - General Internal Medicine 10/29/23 documented as of this encounter
--- OUTSIDE RECORDS SUMMARY | 2024-02-02 22:19 | XMS_ITS | Encounter Summary ---
Author Organization [facility] Address [address] [place] [address] Care Team Providers Care Processing Inspector Name Role Phone Elsewhere, Pcp Primary Care Provider Unavailabl e Reason for Visit * Outpatient (Routine) - Closed Specialty Diagnoses / Procedures Referred By Fawad ruffin Referred To Contact Anesthesiology Diagnoses Hammer Toe Acquired Left Arthritis Toe Mercy Brown D.P.M. [address] [place] [address] [facility] Referral ID Status Reason Start Date Expiration Date Visits Re quested Visits Authorized [id number] Closed 10/20/2023 04/20/2025 1 1 Encounter Details Date Type Department Care Team (Latest Contact Info) Description 10/29/2023 2:15 PM CDT Virtual Visit Preoperative Evaluation Center in [place], [place] [address] [place] [address] Mercy Najera D.P.MJennie [address] [place] [address] Ángela Pimentel, R.NJennie [address] [place] [phone] Preanesthetic Medical Exam (Primary Dx); Hammer Toe [...] CDT GRISELDA Nurse visit completed. Surgery Nurse Superintendent Operating Skin Alert Assessment: Complete this section only [...] preoperative education sheets: Checklist For Surgical Patients ([id number]),???Surgical Site Infections: Reducing Your Risk ([id number]), Speak Up: Antibiotics ([id number]), Acute Pain and the Healing Process ( [id number]) with the [facility] and Health ([id number]), and ???Appointments RequiredBefore Your Surgery?? (no MC). These were reviewed in detail. (x) Preoperative medication education provided through Ask [place] Expert Patient is ready to learn, no apparent learning barriers were identified. Reviewed diagnosis and treatment plan; patient verbalized understanding through teach back. All questions were answered. Patient has contact information and understands the need to call with any questions or concerns. Post op appointments: 1st po with surgeon or physician geriatric assistant: (x) made ()TBD documented in this encounter Plan of Treatment Not on file documented as of this encounter Visit Diagnoses Diagnosis Preanesthetic Medical Exam- Primary Hammer Toe Acquired Left Arthritis Toe documented in this encounter Care Teams Processing Inspector Relationship Specialty Start Date End Date Elsewhere, Pcp PCP - General Internal Medicine 10/29/23 documented as of this encounter
--- OUTSIDE RECORDS SUMMARY | 2024-02-02 22:19 | XMS_ITS | Clinical Summary ---
Author Organization [employer] [facility] Address [place], [place] [address] Care Team Providers Care Manager Medical Device Name Role Phone Jack Zavala MD Primary [...] second interspace of left foot,Toe pain, left [phone] Squared Toed Post op shoe, Small 1 [...] this topic Medical Devices Implanted Type Area Sulfuric Acid Plant Supervisor Device Identifier Shelf Expiration Date Model / Serial / Lot Cmnt Bone 40gm Santiago Motta Ab - [id number] Implanted:Qty: 2 on 04/05/2019 by French Torres MD at [facility] Left: Knee [employer] 10/15/2023 [id number] / / [id number] 29mm Oval Michelle Ii Resurfacing Patellar Component Implanted:Qty: 1 on 04/05/2019 by French Torres MD at [facility] Left: Knee [employer] 12/06/2028 [id number] / / [id number] Size 6 Left Bi-Cruciate Stabilized Journey Ii Bcs Oxinoim Femoral Component Implanted:Qty: 1 on 04/05/2019 by French Torres MD at [facility] Left: Knee [employer] 12/09/2028 [id number] / / [id number] Size 4 Left Journey Nonporous Tibial Baseplate Implanted:Qty: 1 on 04/05/2019 by French Torres MD at [facility] Left: Knee [employer] 11/01/2028 [id number] / / [id number] Left, Size 3-4, 9mm Journey Ii Bcs Xl Pe A/P 48mm M/L 68 Mm Articular Insert Implanted:Qty: 1 on 04/05/2019 by French Torres MD at [facility] Left: Knee [employer] 01/20/2027 [id number] / / [id number] Procedures Procedure Name Priority Date/Time Associated Diagnosis Comments LIPID PANEL W REFLEX MEASURED LDL Routine 04/09/2021 12:10 PM CDT Lipid screening XR MAMMO MICK BILAT SCREEN Routine 09/07/2020 11:20 AM MANAGER OF TRAINING Visit for screening mammogram COLONOSCOPY 07/14/2018 10:16 AM MANAGER OF TRAINING ANTI HCV Routine 06/22/2018 10:24 AM MANAGER OF TRAINING Need for hepatitis C screening test from Last 3 Months or Most Recently Relevant to Health Maintenance Results * (ABNORMAL) LIPID PANEL W REFLEX MEASURED LDL (04/09/2021 12:10 PM CDT) CHOLESTEROL,TOTAL 208(H) 100 - 199 mg/dL 04/09/2021 12:51 PM CDT [facility] TRIGLYCERIDES 144 <150 mg/dL 04/09/2021 12:51 PM CDT [facility] HDL CHOLESTEROL 66 >40 mg/dL 12:51 PM CDT [facility] NON-HDL CHOLESTEROL 142 <145 mg/dl 04/09/2021 12:51 PM CDT [facility] CHOL/HDL RATIO 3.15 <4.50 04/09/2021 12:51 PM CDT [facility] LDL CHOLESTEROL 113 <=130 mg/dL 04/09/2021 12:51 PM CDT [facility] VLDL CHOLESTEROL 29 mg/dL 04/09/20 12:51 PM CDT [facility] PROVIDER ORDERED STATUS RANDOM 04/09/2021 12:51 PM CDT [facility] Blood BLOOD SPECIMEN / Unknown Venipuncture / Unknown 04/09/2021 12:10 PM CDT 04/09/2021 12:12 PM CDT Rocael Conroy DO CHEMISTRY Performing Organization Address City/State/[facility] [place] [address] * XR MAMMO MICK BILAT SCREEN (09/07/2020 11:20 AM MANAGER OF TRAINING) Anatomical Region Laterality Modality BREASTS, Breast Left, Breast Right Bilateral Mammography Impressions 09/10/2020 7:00 AM MANAGER OF TRAINING ??There is no radiographic evidence for malignancy. ??Recommend annual mammograms. A lay language report of this examination will be provided to the patient. MAMMOGRAM ASSESSMENT: ??ACR 2 Benign Narrative 09/10/2020 7:00 AM MANAGER OF TRAINING XR MAMMO MICK BILAT SCREEN [[id number]] CLINICAL HISTORY: ??This is an asymptomatic 54 y.o. patient. INDICATION FOR EXAM: Mammogram Screening. TECHNIQUE: CC & MLO views were obtained. ??This digital study was evaluated with the assistance of Computer-Aided Detection. Breast Tomosynthesis was used in interpretation. COMPARISON FILMS: Yes 08/24/18 [facility] ?? FINDINGS: ??The breasts are heterogeneously dense, which may obscure small masses. ??No suspicious masses or microcalcifications. ??Benign appearing calcifications within right breast and Post surgical changes within ??left breast. Ortiz GARCIA MAMMO * COLONOSCOPY (07/14/2018 10:16 AM MANAGER OF TRAINING) 07/14/2018 10:1 6 AM MANAGER OF TRAINING Narrative Transcriptions Tod Cantu MD - 07/14/2018 1:14 PM CST Patient Name: Kelly Mcgee Procedure Date: 07/14/2018 Gender: Female Date of : 1965 Admit Type: Ambulatory Procedure: Colonoscopy Proceduralist: Tod Cantu [facility] Indications/Pre-Op Diagnosis: High risk colon [...] Cantu MD PROCEDURE ORD * ANTI HCV [[id number]] (06/22/2018 10:24 AM MANAGER OF TRAINING) HEPATITIS C ANTIBODY Non-React sage Non-React sage 06/22/2018 5:59 PM MANAGER OF TRAINING [facility] Comment:Antibodies to HCV no t detected; does not exclude the possibility of exposure to HCV. Blood BLOOD SPECIMEN / Unknown Venipuncture / Unknown 06/22/2018 10:24 AM MANAGER OF TRAINING 06/22/2018 10:30 AM MANAGER OF TRAINING Khoa Abel MD SEND OUTS [facility] [address] [place] [address], from Last 3 Months or Most Recently Relevant to Health Maintenance Advance Directives * Full Code (Latest Code Status on File) Date Activated Date Inactivated Comments 04/07/2019 11:24 PM 04/09/2019 3:34 PM Question Answer Comments Code Status Discussion: Discussed * Full Code Date Activated Date Inactivated Comments 04/05/2019 6:12 AM 04/07/2019 10:02 PM Question Answer Comments Code Status Discussion: Discussed Care Teams Manager Medical Device Relationship Specialty Start Date End Date Jack Zavala MD [address] [place] [address] PCP - General Family Practice 03/31/22
--- OUTSIDE RECORDS SUMMARY | 2024-02-02 22:19 | XMS_ITS | Encounter Summary ---
Author Organization [facility] Address [address] [place] [address] Care Team Providers Care Hand Miter Operator Name Role Phone Elsewhere, Pcp Primary Care Provider Unavailabl e Encounter Details Date Type Department Care Team (Latest Contact Info) Description 10/29/2023 12:50 PM CDT - 10/29/2023 11:59 PM CDT Hospital Encounter Department of Laboratory Medicine in [place], [place] [address] [facility] [place] [phone] Mercy Najera D.PJennieMJennie [address] [place] [phone] Hammer Toe Acquired Left; Fracture Lesser Toe [...] - 80 ng/mL 10/29/2023 7:53 PM CDT [facility] Comment: Optimum levels within the healthy population are 20-50, patients with bone disease may benefit from high levels within this range Blood 10/29/2023 1:04 PM CDT 10/29/2023 6:59 PM CDT Jailene Connors APRN, C.N.P., D .N.P. LAB BLOOD ADD-ON Performing Organization Address City/[facility]/ZIP Co de Phone Number [facility] [address] [place] [address], [place] [facility] [address] [place] [address] * Thyroid Function [place] (10/29/2023 1:04 PM CDT) Pathologist [facility] TSH, Sensitive 2.1 0.3 - 4.2 mIU/L 10/29/2023 6:29 PM CDT [facility] Blood (Blood, Venous) 10/29/2023 1:04 PM CDT 10/29/2023 5:47 PM CDT Jailene Connors APRN, C.N.P., D .N.P. LAB BLOOD ADD-ON [facility] [address] [place] [address], [place] [address] [facility] [place] [address] [place] [address] * CBC with Differential, Blood (10/29/2023 1:04 [...] APRN, C.N.P., D .N.P. LAB BLOOD ADD-ON - [facility] [address] [place] [address], [facility] [address] [facility] [place] [address] [place] [address] * (ABNORMAL) Basic Metabolic Panel (10/29/2023 1:04 [...] Mercy Brown D.P.M. LAB BL OOD ADD-ON - [facility] [address] [place] [address], [place] [facility] [facility] [place] [address] [place] [address] documented in this encounter Visit Diagnoses Diagnosis Hammer Toe Acquired Left Fracture Lesser Toe Middle Phalanx Displaced Closed Initial Left Arthritis Toe Preoperative Exam documented in this encounter Care Teams Hand Miter Operator Relationship Specialty Start Date End Date Elsewhere, Pcp PCP - General Internal Medicine 10/29/23 documented as of this encounter
--- OUTSIDE RECORDS SUMMARY | 2024-02-02 22:19 | XMS_ITS | Encounter Summary ---
Author Organization [facility] Address [address] [place] [address] Care Team Providers Care Housekeeping Aid Name Role Phone Elsewhere, Pcp Primary Care Provider Unavailabl e Reason for Visit * Reason Comments Pre-op Exam Having surgery on le ft foot 2nd toe in [place] on 11/05/23 * Appointment Request (Routine) - Closed Specialty Diagnoses / Procedures Referred By Fawad t Referred To Contact Family Medicine Referral ID Status Reason Start Date Expiration Date Visits Re quested Visits Authorized [id number] Closed 10/27/2023 10/26/2024 1 1 Encounter Details Date Type Department Care Team (Late st Contact Info) Description 10/29/2023 12:00 PM CDT Office Visit Department of Family Medicine, [facility], in [address] [facility] [place] [phone] Jailene Connors APRN, C.N.P., D.N.P. [address] [phone] Preoperative Exam (Primary Dx); Chronic Kidney Disease [...] surgery on left foot 2nd toe in [place] on 11/05/23 ). HISTORY OF PRESENT ILLNESS Kelly is a pleasant 58-year-old female PMH fibromyalgia, hypothyroidism, chronic kidney disease stage 3, factor 2 deficiency, permanent right eye contact, presents for preoperative evaluation for left foot 2nd toe (history of hammertoe) surgery in [place] on 11/05/2023 with Mercy Brown D.PJennieM. -The [...] of this encounter Results * Thyroid Function [place] (10/29/2023 1:04 PM CDT) TSH, Sensitive 2.1 0.3 - 4.2 mIU/L 10/29/2023 6:29 PM CDT [facility] Blood (Blood, Venous) 10/29/2023 1:04 PM CDT 10/29/2023 5:47 PM CDT Jailene Connors APRN, C.N.P., D .N.P. LAB BLOOD ADD-ON [facility] [address] [place] [address], [facility] [place] [address] [place] [address] * CBC with Differential, Blood (10/29/2023 1:04 [...] Givens APRN.N.P., D .N.P. LAB BLOOD ADD-ON [facility] [address] [place] [address], [facility] [address] [facility] in [place] [address] [place] [address] documented in this encounter Visit Diagnoses Diagnosis Preoperative Exam- Primary Chronic Kidney Disease (CKD), Stage 3a Glomerular Filtration Rate (GFR) 45 To 59 (HCC) documented in this encounter Care Teams Housekeeping Aid Relationship Specialty Start Date End Date Elsewhere, Pcp PCP - General Internal Medicine 10/29/23 documented as of this encounter
== END 2024-01-31 18:11 | disposition home or self-care (01) ==
LOC: AMB 02-02 22:16
PROVIDERS: PCP Family Medicine; Visit Provider Emergency Medicine
DX: R07.89 Other chest pain (principal)
CPT/HCPCS: A0425; A0427

== ENCOUNTER 2024-01-31 19:18 | Emergency (ER) | payer BC, SELFPAY ==
[2024-01-31] VITALS (28 sets, daily range): BP systolic 99–138; BP diastolic 60–90; PULSE 78–90; RESP 20; TEMP 36.9; O2SAT 96–100; BMI 31.3
--- NOTE | 2024-01-31 20:06 | ED.GENADULT ---
HPI - General Adult General Chief complaint: Chest Pain Stated complaint: Chest pain Time Seen by Provider: 01/31/24 20:06 History of Present Illness HPI narrative: Pt aox4, ABCs intact. Pt arrives via EMS from home for evaluation of chest pain and nausea/vomiting diarrhea. Patient started having chest pain this evening and was rolling around on the floor upon EMS arrival. Patient then had some nausea /vomiting and incontinent diarrhea. Patient states that she started Wagove on thursday and did smoke week a couple hours prior to the pain starting. 58-year-old woman presenting to the emergency department with complaint of evolution of chest pain nausea and vomiting them apparently diarrhea. A few days ago apparently started Wagovy to assist with weight loss. says he does not think she really needs to be losing weight. Also had smoked marijuana a few hours prior. This is not anything. Apparently had rather intense cramping and was rolling around on the floor when EMS arrived. He has not had any fever. No hematochezia or hematemesis described. Does not have a cardiac history. No sense of irregular heart beats. Does have a history of GERD, fibromyalgia and anxiety. Related Data Home Medications ?Medication ?Instructions ?Recorded ?Confirmed cholecalciferol (vitamin D3) 25 25 mcg PO DAILY 02/11/22 02/09/24 mcg (1,000 unit) capsule clindamycin phosphate 1 % lotion 1 applic topical QDAY 04/03/23 02/09/24 tirzepatide 2.5 mg/0.5 mL 2.5 mg subcut QWEEK 02/09/24 02/09/24 subcutaneous pen injector (Lis) Previous Rx's ?Medication ?Instructions ?Recorded pregabalin 300 mg capsule 300 mg PO BID #180 caps 10/12/23 epinephrine 0.3 mg/0.3 mL 0.3 ml IM ONCE #2 ea 11/12/23 injection, auto-injector furosemide 40 mg tablet 40 mg PO DAILY #90 tabs 11/22/23 bupropion HCl 300 mg 24 hr tablet, 300 mg PO DAILY #90 tabs 01/04/24 extended release citalopram 40 mg tablet 40 mg PO HS #90 tabs 01/04/24 clonazepam 1 mg tablet (Klonopin) 1 mg PO QDAY PRN anxiety #30 tabs 01/04/24 levothyroxine 50 mcg tablet 50 mcg PO DAILY #90 tabs 01/04/24 trazodone 100 mg tablet 150 mg (1.5 x 100 mg) PO HS #135 01/04/24 tabs dextroamphetamine-amphetamine ER 20 mg PO QDAY #30 caps 02/09/24 20 mg 24hr capsule,extend release (Adderall XR) omeprazole 20 mg capsule,delayed 20 mg PO QDAY #90 caps 02/09/24 release peg 3350-electrolytes 236 240 ml PO Q10M #4,000 mL 02/10/24 gram-22.74 gram-6.74 gram-5.86 gram solution (Golytely) Allergies Allergy/AdvReac Type Severity Reaction Status Date / Time bee venom protein (honey bee) Allergy Severe Anaphylaxis Verified 02/19/24 10:24 Review of Systems Status of ROS: Reports: 6 or more systems reviewed and unremarkable except as noted in History and below [facility] Medical History GERD (gastroesophageal reflux disease) ?K21.9 - Gastro-esophageal reflux disease without esophagitis (ICD-10) Bee allergy status ?Z91.030 - Bee allergy status (ICD-10) Fracture of triquetrum of left wrist ?S62.112A - Displaced fracture of triquetrum [cuneiform] bone, left wrist, initial encounter for closed fracture (ICD-10) ROSITA (generalized anxiety disorder) ?F41.1 - Generalized anxiety disorder (ICD-10) Insomnia ?G47.00 - Insomnia, unspecified (ICD-10) Chronic constipation ?K59.09 - Other constipation (ICD-10) Fracture of head of left femur ?S72.052A - Unspecified fracture of head of left femur, initial encounter for closed fracture (ICD-10) Family history of clotting disorder ?Z83.2 - Family history of diseases of the blood and blood-forming organs and certain disorders involving the immune mechanism (ICD-10) Recurrent major depression ?F33.9 - Major depressive disorder, recurrent, unspecified (ICD-10) Hypothyroidism ?E03.9 - Hypothyroidism, unspecified (ICD-10) Generalized anxiety disorder ?F41.1 - Generalized anxiety disorder (ICD-10) ADHD, predominantly inattentive type ?F90.0 - Attention-deficit hyperactivity disorder, predominantly inattentive type (ICD-10) Traumatic brain injury ?S06.9X9A - Unspecified intracranial injury with loss of consciousness of unspecified duration, initial encounter (ICD-10) Neurofibromatosis ?Q85.00 - Neurofibromatosis, unspecified (ICD-10) Fibromyalgia ?M79.7 - Fibromyalgia (ICD-10) Postoperative deep vein thrombosis (DVT) ?T81.89XA - Other complications of procedures, not elsewhere classified, initial encounter (ICD-10) ?I82.409 - Acute embolism and thrombosis of unspecified deep veins of unspecified lower extremity (ICD-10) Syncope ?R55 - Syncope and collapse (ICD-10) Colon polyps ?K63.5 - Polyp of colon (ICD-10) CKD (chronic kidney disease), stage II ?N18.2 - Chronic kidney disease, stage 2 (mild) (ICD-10) Factor V Leiden ?D68.51 - Activated protein C resistance (ICD-10) Surgical History 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) ?Z96.649 - Presence of unspecified artificial hip joint (ICD-10) Hx of section ?Z98.891 - History of uterine scar from previous surgery (ICD-10) Hx of blepharoplasty ?Z98.890 - Other specified postprocedural states (ICD-10) History of bunionectomy ?Z98.890 - Other specified postprocedural states (ICD-10) Status post left hip replacement (02/09/22) ?Z96.642 - Presence of left artificial hip joint (ICD-10) S/P tendon repair ?Z98.890 - Other specified postprocedural states (ICD-10) Hx laparoscopic cholecystectomy ?Z90.49 - Acquired absence of other specified parts of digestive tract (ICD-10) History of total abdominal hysterectomy and bilateral salpingo-oophorectomy ?Z90.710 - Acquired absence of both cervix and uterus (ICD-10) ?Z90.722 - Acquired absence of ovaries, bilateral (ICD-10) ?Z90.79 - Acquired absence of other genital organ(s) (ICD-10) Hx of appendectomy ?Z90.49 - Acquired absence of other specified parts of digestive tract (ICD-10) S/P tendon repair ?Z98.890 - Other specified postprocedural states (ICD-10) Hx of LASIK ?Z98.890 - Other specified postprocedural states (ICD-10) History of arthroplasty of left knee ?Z96.652 - Presence of left artificial knee joint (ICD-10) Family History Mother Coagulation disorder Depression Osteoarthritis Rheumatoid arthritis Daughter Depression Rheumatoid arthritis Maternal Grandmother Depression Osteoarthritis Thyroid disease Paternal Grandmother Depression Diabetes Social History Narrative: , nonsmoker, full code, THC, social ETOH Highest level of school completed/degree received: Associate degree: academic program Smoking Status: Former smoker Do you use any of these nicotine containing products: None Second hand tobacco smoke exposure: No How often do you have a drink containing alcohol: monthly or less Alcohol type: hard liquor How many standard drinks containing alcohol do you have on a typical day: 1 or 2 How often do you have six or more drinks on one occasion: Never AUDIT-C Alcohol total score: 1 Non-prescribed substance use: marijuana (any form) Caffeine: Yes Little interest or pleasure in doing things: not at all Feeling down, depressed, or hopeless: not at all Are you using contraception or practicing any form of control: No service: No Exam Narrative: Exam Narrative: Pleasant. Does appear anxious. Clearly uncomfortable. Skin is warm and dry. Well-perfused peripherally. No extremity edema. Lungs are clear. Heart in regular rate and rhythm. Mildly labored in breathing but not tachypneic. Abdomen is soft without peritoneal signs. Bowel sounds are present. Generally sore. Oropharynx is sticky. Generally sore to palpation. Const: Vital Signs, click to edit/add: Vital Signs - 24 hr 01/31/24 19:39 01/31/24 19:42 01/31/24 19:45 Temperature 98.4 F Pulse Rate 85 86 Pulse Rate [Right Pulse Oximeter] 90 Respiratory Rate 20 Blood Pressure Blood Pressure [Ri ght Upper Arm] 99/74 Pulse Oximetry 96 98 98 Oxygen Delivery Me thod Room Air 01/31/24 20:00 01/31/24 20:01 01/31/24 20:22 Temperature Pulse Rate 82 79 80 Pulse Rate [Right Pulse Oximeter] Respiratory Rate Blood Pressure 119/73 Blood Pressure [Ri ght Upper Arm] Pulse Oximetry 99 98 99 Oxygen Delivery Ma thod 01/31/24 20:30 01/31/24 20:35 01/31/24 20:45 Temperature Pulse Rate 78 79 79 Pulse Rate [Right Pulse Oximeter] Respiratory Rate Blood Pressure Blood Pressure [Ri ght Upper Arm] Pulse Oximetry 100 100 100 Oxygen Delivery Ma thod 01/31/24 21:00 01/31/24 21:02 01/31/24 21:15 Temperature Pulse Rate 78 80 83 Pulse Rate [Right Pulse Oximeter] Respiratory Rate Blood Pressure 131/76 Blood Pressure [Ri ght Upper Arm] Pulse Oximetry 100 100 99 Oxygen Delivery Ma thod 01/31/24 21:30 01/31/24 21:32 01/31/24 21:45 Temperature Pulse Rate 84 86 89 Pulse Rate [Right Pulse Oximeter] Respiratory Rate Blood Pressure 130/69 Blood Pressure [Ri ght Upper Arm] Pulse Oximetry 100 98 96 Oxygen Delivery Ma thod 01/31/24 22:00 01/31/24 22:02 01/31/24 22:15 Temperature Pulse Rate 86 87 89 Pulse Rate [Right Pulse Oximeter] Respiratory Rate Blood Pressure 116/60 Blood Pressure [Ri ght Upper Arm] Pulse Oximetry 100 99 97 Oxygen Delivery Ma thod 01/31/24 22:30 01/31/24 22:32 01/31/24 22:45 Temperature Pulse Rate 86 84 85 Pulse Rate [Right Pulse Oximeter] Respiratory Rate Blood Pressure 135/90 H Blood Pressure [Ri ght Upper Arm] Pulse Oximetry 98 100 100 Oxygen Delivery Ma thod 01/31/24 23:00 01/31/24 23:02 01/31/24 23:15 Temperature Pulse Rate 85 83 83 Pulse Rate [Right Pulse Oximeter] Respiratory Rate Blood Pressure 138/79 Blood Pressure [Ri ght Upper Arm] Pulse Oximetry 96 97 100 Oxygen Delivery Ma thod 01/31/24 23:30 01/31/24 23:32 01/31/24 23:33 Temperature Pulse Rate 85 84 84 Pulse Rate [Right Pulse Oximeter] Respiratory Rate Blood Pressure 121/75 Blood Pressure [Ri ght Upper Arm] Pulse Oximetry 99 99 98 Oxygen Delivery Ma thod 01/31/24 23:45 02/01/24 00:00 02/01/24 00:02 Temperature Pulse Rate 81 82 82 Pulse Rate [Right Pulse Oximeter] Respiratory Rate Blood Pressure 111/72 Blood Pressure [Ri ght Upper Arm] Pulse Oximetry 97 97 97 Oxygen Delivery Me thod 02/01/24 00:02 02/01/24 00:02 02/01/24 00:02 Temperature Pulse Rate 82 82 82 Pulse Rate [Right Pulse Oximeter] Respiratory Rate Blood Pressure 111/72 111/72 111/72 Blood Pressure [Ri ght Upper Arm] Pulse Oximetry 97 97 97 Oxygen Delivery Me thod 02/01/24 00:15 02/01/24 00:30 02/01/24 00:31 Temperature Pulse Rate 79 82 81 Pulse Rate [Right Pulse Oximeter] Respiratory Rate Blood Pressure 117/71 Blood Pressure [Ri ght Upper Arm] Pulse Oximetry 97 98 99 Oxygen Delivery Me thod 02/01/24 00:45 02/01/24 01:00 Temperature Pulse Rate 81 82 Pulse Rate [Right Pulse Oximeter] Respiratory Rate Blood Pressure Blood Pressure [Ri ght Upper Arm] Pulse Oximetry 99 98 Oxygen Delivery Me thod Course Vital Signs Vital signs: Initial Vital Signs Temperature 98.4 F 01/31/24 19:39 Temperature Source Temporal Artery Scan 01/31/24 19:39 Pulse Rate 90 01/31/24 19:39 Pulse Rhythm Regular 01/31/24 19:39 Pulse Strength 3+ Normal 01/31/24 19:39 Respiratory Rate 20 01/31/24 19:39 Blood Pressure 99/74 01/31/24 19:39 Blood Pressure Mean 82 01/31/24 19:39 Blood Pressure Position Sitting 01/31/24 19:39 Pulse Oximetry 96 01/31/24 19:39 Oxygen Delivery Method Room Air 01/31/24 19:39 Vital Signs Temperature 98.4 F 01/31/24 19:39 Pulse Rate 90 01/31/24 19:39 Respiratory Rate 20 01/31/24 19:39 Blood Pressure 99/74 01/31/24 19:39 Pulse Oximetry 96 01/31/24 19:39 Oxygen Delivery Method Room Air 01/31/24 19:39 Temperature 98.4 F 01/31/24 19:39 Pulse Rate 82 02/01/24 01:00 Respiratory Rate 20 01/31/24 19:39 Blood Pressure 117/71 02/01/24 00:31 Pulse Oximetry 98 02/01/24 01:00 Oxygen Delivery Method Room Air 01/31/24 19:39 Medications Administered Medications: Discontinued Medications Generic Name Dose Route Start Last Admin Trade Name Gerry PRN Reason Stop Dose Admin Sodium Chloride 1,000 mls @ 1,000 mls/hr 01/31/24 20:16 01/31/24 21:56 0.9 % Sodium Chloride 1000 Ml IV 01/31/24 21:15 Infused .Q1H ONE Infusion Lactated Ringer's 1,000 mls @ 1,000 mls/hr 01/31/24 21:11 01/31/24 22:50 Lactated Ringers 1000 Ml IV 01/31/24 22:10 Infused .Q1H ONE Infusion Ketorolac Tromethamine 15 mg 01/31/24 20:16 01/31/24 20:38 Ketorolac 15 Mg/Ml Inj IVP 01/31/24 20:17 15 mg ONCE ONE Administration Lorazepam 0.5 mg 01/31/24 21:11 01/31/24 21:30 Lorazepam 2 Mg/Ml Inj IVP 01/31/24 21:12 0.5 mg ONCE ONE Administration Morphine Sulfate 4 mg 01/31/24 20:16 01/31/24 20:38 Morphine 4 Mg/Ml Inj IVP 01/31/24 20:17 4 mg ONCE ONE Administration Ondansetron HCl 4 mg 01/31/24 20:16 01/31/24 20:38 Ondansetron 2 Mg/Ml Inj IVP 01/31/24 20:17 4 mg ONCE ONE Administration Medical Decision Making MDM Narrative Medical decision making narrative: Considering what I have been observing in the emergency department, I would think that the source of this is most likely related to new semaglutide use possibly exacerbated by marijuana and anxiety. Also exacerbated with history of fibromyalgia I would think. Would check labs however a to look for more serious cause. EKG does not show concerning findings. Differential does still include perhaps pulmonary embolus and ischemic cardiovascular disease, or vascular disruption. Given intensity of discomfort would offer pain relief pending further evaluation. IV fluids and ketorolac. Morphine and antiemetic. After fluids and time and treatment as above was mildly improved. I think anxiety is contributing still to some residual symptoms. Given does lorazepam. On reassessment is more improved and feels can go home. General less of discomfort is think precludes necessary imaging and reassuring labs generally. Transaminases are slightly elevated in this might be related to vomiting illness. But after discussion and understandable concern, did offer ultrasound. While present, pain is not discrete to the right upper quadrant. 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 TECHNIQUE: Ultrasound abdomen limited. Sonographic images of the right upper quadrant were obtained using dunn-scale and color Doppler images. COMPARISON: None FINDINGS: The sensitivity and specificity of the exam are moderately limited by the overlying bowel gas. Liver: The liver parenchyma is normal in echotexture. Gallbladder: There is an echogenic focus near the gallbladder which may represent a gallstone measuring 1.3 cm. The gallbladder wall is normal in appearance. No pericholecystic fluid is present. No sonographic So???s sign is present. Common bile duct: The common bile duct is at the upper limits or normal, measuring 6 mm. No intrahepatic biliary ductal dilatation seen. Pancreas: The visualized portions of the pancreatic head and body are normal in appearance. Right Kidney: 9.3 cm. No hydronephrosis or ureterectasis is seen. Vascular: The visualized abdominal aorta and IVC are unremarkable. IMPRESSION: 1. There is an echogenic focus near the gallbladder which may represent a gallstone measuring 1.3 cm. Visualization of the gallbladder is limited due to bowel gas. Again overall improved. Considering findings and ultrasound I wonder if may have passed stone in part as bilirubin is also slightly elevated Please see patient discharge plan for further discussion. Medical Records Medical records reviewed: Yes I reviewed the patient's medical records Lab Data Lab results reviewed: Yes I reviewed the patient's lab results Labs: Lab Results 01/31/24 01/31/24 01/31/24 Range/Units 20:35 21:48 23:10 WBC 11.50 H (4.50-11.00) K/uL RBC 4.99 (4.00-5.20) m/uL Hgb 15.8 (12.0-16.0) gm/dL Hct 44.5 (33.0-51.0) % MCV 89 (80-100) fL MCH 32 (26-34) pg MCHC 36 (32-36) gm/dL RDW Coeff of Corazon 12.8 (11.5-15.5) % Plt Count 180 (140-440) K/uL Neut % (Auto) 86.0 H (42.0-72.0) % Lymph % (Auto) 6.3 L (20-44) % Prentiss % (Auto) 7.0 (0.0-11.0) % Eos % (Auto) 0.2 (0.0-7.0) % Baso % (Auto) 0.2 (0.0-3.0) % Neut # (Auto) 9.90 H (1.7-7.0) K/uL Lymph # (Auto) 0.70 L (0.90-2.90) K/uL Prentiss # (Auto) 0.80 (0.00-0.90) K/UL Eos # (Auto) 0.00 (0.00-0.50) K/uL Baso # (Auto) 0.00 (0.00-0.30) K/uL Abs Immat Gran (auto) 0.00 (0.00-0.30) K/uL Imm/Tot Granulo (auto) 0.3 % D-Dimer Quant (PE/DVT) (0.00-0.50) ug/ml Sodium 138 (135-149) mmol/L Potassium 3.9 (3.6-5.1) mmol/L Chloride 105 (96-114) mmol/L Carbon Dioxide 22 (20-32) mmol/L Anion Gap 11 (7-15) mEq/L BUN 28 (7-30) mg/dL Creatinine 1.1 (0.5-1.5) mg/dL Estimated Creat Clear 55.55 Estimated GFR 58 ml/min Glucose 98 (60-115) mg/dL Lactate 1.9 (0.5-1.9) mmol/L Calcium 9.7 (8.4-10.6) mg/dL Magnesium 2.3 (1.5-2.6) mg/dL Total Bilirubin 1.6 H (0.1-1.5) mg/dL Direct Bilirubin 0.9 H (0.0-0.5) mg/dL AST 146 H (12-35) U/L ALT 58 H (4-35) U/L Alkaline Phosphatase 172 H (40-150) U/L Troponin I 0.03 (0.01-0.04) ng/mL Total Protein 8.0 (6.0-8.3) g/dL Albumin 5.0 (3.3-5.0) g/dL Lipase 58 (23-300) U/L Lab Acknowledgement Test Added New Spec Needed POC Troponin I 0.01 (0.01-0.04) ng/ml 01/31/24 Range/Units 23:20 WBC (4.50-11.00) K/uL RBC (4.00-5.20) m/uL Hgb (12.0-16.0) gm/dL Hct (33.0-51.0) % MCV (80-100) fL MCH (26-34) pg MCHC (32-36) gm/dL RDW Coeff of Corazon (11.5-15.5) % Plt Count (140-440) K/uL Neut % (Auto) (42.0-72.0) % Lymph % (Auto) (20-44) % Prentiss % (Auto) (0.0-11.0) % Eos % (Auto) (0.0-7.0) % Baso % (Auto) (0.0-3.0) % Neut # (Auto) (1.7-7.0) K/uL Lymph # (Auto) (0.90-2.90) K/uL Prentiss # (Auto) (0.00-0.90) K/UL Eos # (Auto) (0.00-0.50) K/uL Baso # (Auto) (0.00-0.30) K/uL Abs Immat Gran (auto) (0.00-0.30) K/uL Imm/Tot Granulo (auto) % D-Dimer Quant (PE/DVT) 0.41 (0.00-0.50) ug/ml Sodium (135-149) mmol/L Potassium (3.6-5.1) mmol/L Chloride (96-114) mmol/L Carbon Dioxide (20-32) mmol/L Anion Gap (7-15) mEq/L BUN (7-30) mg/dL Creatinine (0.5-1.5) mg/dL Estimated Creat Clear Estimated GFR ml/min Glucose (60-115) mg/dL Lactate (0.5-1.9) mmol/L Calcium (8.4-10.6) mg/dL Magnesium (1.5-2.6) mg/dL Total Bilirubin (0.1-1.5) mg/dL Direct Bilirubin (0.0-0.5) mg/dL AST (12-35) U/L ALT (4-35) U/L Alkaline Phosphatase (40-150) U/L Troponin I (0.01-0.04) ng/mL Total Protein (6.0-8.3) g/dL Albumin (3.3-5.0) g/dL Lipase (23-300) U/L Lab Acknowledgement POC Troponin I (0.01-0.04) ng/ml ECG Data Attestation: I personally reviewed and interpreted this ECG as follows: (Normal sinus rhythm. Generally low voltage. No ischemic changes. Rate of 85) Discharge Plan Discharge Clinical Impression: Abdominal cramping, Elevated liver enzymes, Dehydration, Anxiety Patient Disposition: Home w/ Parent or Adult Condition: Improved Additional Instructions: While it was a difficult ultrasound, you are suspected to have a gallstone. I wonder if maybe you had passed another one earlier this evening which has contributed to some of your pain. I would like you to follow-up with general surgery to evaluate/discuss further. The elevated liver enzymes can also be due to a vomiting illness but I am not sure that that was going on long enough to create what we're seeing here. I do wonder if the Wegovy (semiglutide) has contributed to the abdominal cramping, vomiting, diarrhea. I suppose you could dose that again when it is time and see how you react to be more sure. Marijuana can also cause these symptoms. Focus on hydration. Slow advance of diet over the next 24-36 hours. Diluted juices, soup broths, crackers, rice, toast. Prescriptions: No Action clindamycin phosphate 1 % lotion 1 applic topical QDAY levothyroxine 50 mcg tablet 50 mcg PO DAILY Qty: 90 1RF bupropion HCl 300 mg tablet extended release 24 hr 300 mg PO DAILY Qty: 90 1RF citalopram 40 mg tablet 40 mg PO HS Qty: 90 1RF clonazepam [Klonopin] 1 mg tablet 1 mg PO QDAY PRN (Reason: anxiety) Qty: 30 0RF trazodone 100 mg tablet 150 mg PO HS Qty: 135 1RF dextroamphetamine-amphetamine [Adderall XR] 20 mg capsule,extended release 24hr 20 mg PO QDAY Qty: 30 0RF omeprazole 20 mg capsule,delayed release(DR/EC) 20 mg PO QDAY Qty: 90 1RF Mounjaro 2.5 mg/0.5 mL pen injector 2.5 mg subcut QWEEK cholecalciferol (vitamin D3) 25 mcg (1,000 unit) capsule 25 mcg PO DAILY pregabalin 300 mg capsule 300 mg PO BID Qty: 180 1RF epinephrine 0.3 mg/0.3 mL auto-injector 0.3 ml IM ONCE Qty: 2 2RF Rx Instructions: as a single dose; may repeat once furosemide 40 mg tablet 40 mg PO DAILY Qty: 90 1RF peg 3350-electrolytes [Golytely] 236-22.74-6.74 -5.86 gram recon soln 240 ml PO Q10M Qty: 4000 0RF Rx Instructions: until fecal effluent is clear Follow Up/Referrals: Jack Zavala MD [Primary Care Provider] - Stand Alone [facility] Info Instructions
[2024-01-31] MEDS: KETOROLAC 15 MG/ML inj IVP (20:38)
[2024-01-31] MEDS: MORPHINE 4 MG/ML INJ IVP (20:38)
[2024-01-31] MEDS: 0.9 % SODIUM CHLORIDE 1000 ml 1,000 ML IV (20:38)
[2024-01-31] MEDS: ONDANSETRON 2 MG/ML inj 4 MG IVP (20:38)
--- OUTSIDE RECORDS SUMMARY | 2024-01-31 20:49 | XMS_ITS | Referral Summary ---
Author Organization [facility] Address [address] [place] [address] Care Team Providers Care Stitch Burnisher Name Role Phone Elsewhere, Pcp Primary Care Provider Unavailabl e Source Comments Patient records contain information from all sites at [facility]. For routine questions regarding patient records, call [phone] during business hours, M-F 8:00 AM - 5:00 PM Central Time. Record requests for emergency care only can be directed to [phone] at any time.[facility] Encounters Date Type Department Care Team Description 01/25/2024 Clinical Communication Primary [facility] at [address] [phone] Aba Santos M.D. 01/20/2024 Clinical Communication Primary [facility] at [address] [phone] Aba Santos M.D. 01/04/2024 7:50 AM CDT - 01/04/2024 11:59 PM CDT Hospital Encounter Department of Radiology in [address] [phone] Mercy Hernández am, D.PBradley Swelling Toe Discharge Disposition: Home or Self Care 01/04/2024 8:30 AM CDT Office Visit Department of Orthopedic Surgery in [address] [phone] Mercy Hernández am, D.PJennieMJennie Ingrown Nail (Primary Dx) Discharge Disposition: Home or Self Care 12/28/2023 Orders Only Department of Orthopedic Surgery in [address] [phone] Mercy Hernández am, D.P.M. Swelling Toe (Primary Dx) 12/24/2023 Clinical Communication Department of Orthopedic Surgery in [address] [phone] Mercy Hernández am, D.P.M. Nurse Assessment (Post op question for podiatry) 12/08/2023 Orders Only Department of Orthopedic Surgery in [address] [phone] Jeanie Pina L.P.N. 12/08/2023 1:06 PM CDT - 12/08/2023 11:59 PM CDT Hospital Encounter Department of Radiology in [address] [phone] Mercy Hernández am, D.P.MJennie Follow Up Surgery Exam; Fracture Lesser Toe Middle Phalanx Displaced Closed Initial Left Discharge Disposition: Home or Self Care 12/08/2023 1:00 PM CDT Office Visit Department of Orthopedic Surgery in [address] [phone] Mercy Hernández am, D.PJennieMJennie Follow Up Surgery Exam (Primary Dx); Fracture Lesser Toe Middle Phalanx Displaced Closed Initial Left Discharge Disposition: Home or Self Care 11/23/2023 8:24 AM CDT - 11/23/2023 11:59 PM CDT Hospital Encounter Department of Radiology in [address] [phone] Mercy Hernández am, D.PBradley Fracture Lesser Toe Middle Phalanx Displaced Closed Initial Left Discharge Disposition: Home or Self Care 11/23/2023 8:00 AM CDT Office Visit Department of Orthopedic Surgery in [address] [phone] Mercy Hernández am, D.P.M. Fracture Lesser Toe Middle Phalanx Displaced Closed Initial Left (Primary Dx); Follow Up Surgery Exam Discharge Disposition: Home or Self Care 11/18/2023 8:00 AM CDT Office Visit Department of Orthopedic Surgery in [address] [phone] Mercy Hernández am, D.PJennieMJennie Follow Up Surgery Exam (Primary Dx) Discharge Disposition: Home or Self Care 11/11/2023 11:00 AM CDT Office Visit Department of Orthopedic Surgery in [address] [phone] Mercy Hernández am, D.PBradley Follow Up Surgery Exam (Primary Dx) Discharge Disposition: Home or Self Care 11/05/2023 9:15 AM CDT Ancillary Procedure Department of General Surgery 11/05/2023 8:55 AM CDT Ancillary Procedure Department of General Surgery 11/05/2023 7:27 AM CDT - 11/05/2023 7:35 AM CDT Hospital Encounter Department of Radiology in [address] [phone] Mercy Hernández am, D.PBradley Pain Foot Left Discharge Disposition: Home or Self Care 11/05/2023 8:50 AM CDT - 11/05/2023 10:45 AM CDT Surgery [facility] in [address] [phone] Mercy Hernández am, D.PJennieMJennie OPEN REDUCTION INTERNAL FIXATION Middle PHALANX 2nd toe 11/05/2023 8:31 AM CDT Anesthesia Event Outpatient Procedure [facility] in [address] [phone] Jeanie Mcgill M.D. 11/05/2023 7:36 AM CDT - 11/05/2023 10:50 AM CDT Hospital Encounter Outpatient Procedure Center in [address] [phone] Mercy Hernández am, D.P.M. Fracture Lesser Toe Middle Phalanx Displaced Closed Initial Left (Primary Dx); Hammer Toe Acquired Left Discharge Disposition: Home or Self Care from Last 3 Months Allergies Active Allergy Reactions Criticality Noted Date Comments Bee Venom Protein (Honey Bee) Other (see comments) 05/06/2019 Covid-19 Vacc,Mrna(Moderna)-P f Myalgia 10/06/2022 SICK IN THE BED PAIN AND CHILLS X1 WEEK Medications Medication Sig Dispensed Refills Start Date End Date Status albuterol 90 mcg/actuation inhaler Inhale 2 puffs every 4 (four) hours as needed. 04/09/2021 Active bisacodyL (DULCOLAX) 5 mg EC tablet Take 10 mg by mouth daily. Active buPROPion XL (WELLBUTRIN XL) 300 mg 24 hr tablet Take 300 mg by mouth every morning. 10/16/2022 Active cholecalciferol (VITAMIN D3) 125 mcg (5,000 Unit) capsule Take 5,000 Units by mouth daily. 01/19/2020 Active amphetamine-dextroamph etamine (ADDERALL XR) 20 mg 24 hr capsule Take 20 mg by mouth. 04/14/2022 Active traZODone (DESYREL) 100 mg tablet Take 150 mg by mouth at bedtime. 10/21/2022 Active clonazePAM (KlonoPIN) 1 mg tablet 1 MG ORALLY TWICE A DAY NEEDED FOR ANXIETY 08/25/2023 Active citalopram (CeleXA) 40 mg tablet Take 1 tablet by mouth at bedtime. 09/11/2023 Active amphetamine-dextroamph etamine (ADDERALL XR) 20 mg 24 hr capsule Take 1 capsule by mouth every morning. 04/14/2022 Active furosemide (LASIX) 40 mg tablet Take 1 tablet by mouth daily. 04/28/2023 Active levothyroxine (SYNTHROID, LEVOTHROID) 50 mcg tablet Take 1 tablet by mouth daily. 05/27/2023 Active pregabalin (LYRICA) 300 mg capsule Take 1 capsule by mouth 2 (two) times a day. 10/12/2023 Active Active Problems Problem Noted Date Diagnosed Date Hypothyroidism 10/28/2023 Chronic Kidney Disease (CKD) , Stage 3a Glomerular Filtration Rate (GFR) 45 To 59 10/28/2023 Hammer Toe Acquired Left 10/20/2023 Fracture Lesser Toe Middle P halanx Displaced Closed Initial Left 10/20/2023 Arthritis Toe 10/20/2023 Immunizations Name Administration Dates Next Due HepB Adult 02/15/2004 Influenza (IM) Preservative Free 05/07/2009 Influenza TIV (IM) 06/06/2010, 8,06/11/2007,2004,05/30/2003,06/02/2002,08/20/2001 Influenza, Seasonal, Injectable 06/06/20 10,06/08/2008,06/11/2007,2004,05/30/2003,06/02/2002,08/20/2001 Influenza, Unspecified 04/29/2013,07/23/2012 PPSV23 05/05/2014 RZV (SHINGRIX) 06/26/2020 Tdap 09/21/2017,04/07/2008 influenza vaccine QV(FLUBLOK ) (18 years or older) (PF) 06/02/2022,04/28/2021 influenza vaccine quad (FLUZONE/FLUARIX) (6 months and older)(PF) 06/26/2020,07/04/2019,05/25/2018,2017,05/13/2017 Social History Tobacco Use Types Packs/Day Years Used Date Smoking Tobacco: Never Smokeless Tobacco: Never Tobacco Cessation:Counseling Given: Not Answered Alcohol Use Standard Drinks/Week Comments Yes 0 [...] Sign Reading Time Taken Comments Blood Pressure 115/73 11/05/2023 10:15 AM CDT Pulse 79 11/05/2023 10:15 AM CDT Temperature 35.6 ??C (96.1 ??F) 11/05/2023 9:37 AM CD T Respiratory Rate 20 11/05/2023 9:37 AM CDT Oxygen Saturation 98% 11/05/2023 10:15 AM CDT Inhaled Oxygen Concentration - - Weight 96.3 kg (212 lb 4.9 oz) 11/05/2023 7:54 A M CDT Height 173 cm (5' 8.11) 11/05/2023 7:54 AM CDT Body Mass Index 32.18 11/05/2023 7:54 AM CDT Plan of Treatment Not on file Medical Devices Implanted Type Area Documentation Liaison Device Identifier Shelf Expiration Date Model / Serial / Lot Scrw St Fthrd Nlck Sld 2.0x6 - [id number] Implanted:Qty: 2 on 11/05/2023 by Mercy Hogan D.P.MJennie at [facility] [employer] e.g. pins/screws/r ods [employer] [id number] / / 09.20.24.[address] Fthrd Nlck Sld 2.0x7 - [id number] Implanted:Qty: 1 on 11/05/2023 by Mercy Hogan D.P.MJennie at [facility] [employer] e.g. pins/screws/r ods [employer] [id number] / / 24.0 19 Plt Hnd Lcd 4h Lck 2.4x24 - [id number] Implanted:Qty: 1 on 11/05/2023 by Mercy Hogan D.P.MJennie at [facility] [employer] e.g. pins/screws/r ods [employer] [id number] / / 24.0 19 Procedures Procedure Name Priority Date/Time Associated Diagnosis Comments DX TOES LEFT 3 VIEWS RAD - Routine (most inpatients and all outpatients) 01/04/2024 8:05 AM CDT Swelling Toe DX TOES LEFT 3 VIEWS RAD - Routine (most inpatients and all outpatients) 12/08/2023 1:27 PM CDT Follow Up Surgery Exam Fracture Lesser Toe Middle Phalanx Displaced Closed Initial Left DX TOES LEFT 3 VIEWS RAD - Routine (most inpatients and all outpatients) 11/23/2023 8:40 AM CDT Fracture Lesser Toe Middle Phalanx Displaced Closed Initial Left FL FLUORO LESS THAN 1 HOUR RAD - Routine (most inpatients and all outpatients) 11/05/2023 9:41 AM CDT Pain Foot Left ADULT OXYGEN THERAPY Routine 11/05/2023 9:31 AM CDT SURGERY IMAGE EXAM Routine 11/05/2023 9: 15 AM CDT SURGERY IMAGE EXAM Routine 11/05/2023 8: 54 AM CDT ARTHRODESIS WITH FUSION TOE 11/05/2023 8:21 AM CDT Hammer Toe Acquired Left Fracture Lesser Toe Middle Phalanx Displaced Closed Initial Left Arthritis Toe OPEN REDUCTION INTERNAL FIXATION - PHALANX - PROXIMAL FRACTURE 11/05/2023 8:21 AM CDT Hammer Toe Acquired Left Fracture Lesser Toe Middle Phalanx Displaced Closed Initial Left Arthritis Toe THYROID FUNCTION CASCADE, S Routine 10/29/2023 1:04 PM CDT Preoperative Exam BASIC METABOLIC PANEL, S/P Routine 10/29/2023 1:04 PM CDT Hammer Toe Acquired Left Fracture Lesser Toe Middle Phalanx Displaced Closed Initial Left Arthritis Toe EXTI LIPID PANEL W REFLEX MEASURED LDL Routine 04/09/2021 12:10 PM CDT BI BREAST SCREENING BILATERAL WITH TOMOSYNTHESIS Routine 09/07/2020 11:20 AM NOUGAT CUTTER MACHINE from Last 3 Months or Most Recently Relevant to Health Maintenance Results * DX Toes Left 3 Views (01/04/2024 8:05 AM CDT) Only the most recent of3 resultswithin the time period is included. Anatomical Region Laterality Modality Lower Extremity, Toes, Muscu loskeletal RST LOS, Musculoskeletal ARZ LOS, Muskuloskeletal FLA LOS Left Digit al Radiography Impressions 01/04/2024 8:26 AM CDT Open reduction internal fixation with arthrodesis across the second toe PIP joint with plate and screw construct. Hardware is well seated. Unchanged mild depression of the second metatarsal head. Generalized mild degenerative change. Mild soft tissue swelling Narrative 01/04/2024 8:26 AM CDT EXAM: DX TOES LEFT 3 VIEWS Procedure Note Tung Foley M.D. - 01/04/2024 EXAM: DX TOES LEFT 3 VIEWS IMPRESSION: Open reduction internal fixation with arthrodesis across the second toePIP joint with plate and screw construct. Hardware is well seated.Unchanged mild depression of the second metatarsal head. Generalized milddegenerative change. Mild soft tissue swelling Mercy PeraltaP.MJennie IMG DI AGNOSTIC IMAGING PROCEDURES * FL Fluoro Less Than 1 Hour (11/05/2023 9:41 AM CDT) Narrative 8000 LOS SEMN - 11/05/2023 9:44 AM CDT This exam does not require a radiologist review or interpretation. Please refer to the patient's medical record on this date for clinical details. Mercy PeraltaP.Amada IMG FL UOROSCOPY PROCEDURES Performing Organization Address [facility]/ZIP Co de Phone Number [phone] LOS SEMN * Foot-Surgery Image Exam (11/05/2023 9:15 AM CDT) Only the most recent of2 resultswithin the time period is included. 11/05/2023 9:13 AM CDT Narrative IIMS - 11/05/2023 9:15 AM CDT This order has been created and auto-finalized to support the import of images acquired without order. The clinical documentation to support these images can be found on the encounter that produced images. Provider Not In System IMG NON RAD IMAGI NG PROCEDURES Performing Organization Address City/[facility]/ZIP Co de Phone Number IIMS NA * Thyroid Function Falls (10/29/2023 1:04 PM CDT) TSH, Sensitive 2.1 0.3 - 4.2 mIU/L 10/29/2023 6:29 PM CDT [facility] Blood (Blood, Venous) 10/29/2023 1:04 PM CDT 10/29/2023 5:47 PM CDT Jailene Connors APRN, C.N.P., D .N.P. LAB BLOOD ADD-ON [facility] [address] [place] [address], [facility] in [place] [address] [place] [address] * (ABNORMAL) Basic Metabolic Panel (10/29/2023 1:04 PM CDT) Potassium, P 4.7 3.6 - 5.2 mmol/L 10/29/2023 6:25 PM CDT OW[facility] Sodium, P 142 135 - 145 mmol/L 10/29/2023 6:25 PM CDT [facility] Chloride, P 106 98 - 107 mmol/L 10/29/2023 6:25 PM CDT [facility] Bicarbonate, P 26 22 - 29 mmol/L 10/29/2023 6:25 PM CDT [facility] Anion Gap, P 10 7 - 15 10/29/2023 6:25 PM CDT [facility] BUN (Blood Urea Nitrogen), P 18 6 - 21 mg/dL 10/29/2023 6:25 PM CDT [facility] Creatinine 0.94 0.59 - 1.04 mg/dL 10/29/2023 6:25 PM CDT OW[facility] Estimated GFR (eGFR) 70 >=60 mL/min/BSA 10/29/2023 6:25 PM CDT [facility] Comment: Estimated GFR calculated using the 2020 CKD_EPI creatinine equation. Calcium, Total, P 9.3 8.6 - 10.0 mg/dL 10/29/2023 6:25 PM CDT OW[facility] Glucose, P 64(L) 70 - 140 mg/dL 10/29/2023 6:25 PM CDT OW[facility] Blood (Blood, Venous) 10/29/2023 1:04 PM CDT 10/29/2023 5:48 PM CDT Mercy Brown D.P.M. LAB BL OOD ADD-ON [facility] [address] [place] [address], [place] OW[facility] [place] [address] [facility] [place] [address] from Last 3 Months or Most Recently Relevant to Health Maintenance Advance Directives For more information, please contact: [phone] * Full Code (Latest Code Status on File) Date Activated Date Inactivated Comments 11/05/2023 9:43 AM 11/05/2023 12:56 PM Question Answer Comments Full Code: Discussed * Full Code Date Activated Date Inactivated Comments 11/05/2023 7:38 AM 11/05/2023 9:43 AM Question Answer Comments Full Code: Discussed Care Teams Stitch Burnisher Relationship Specialty Start Date End Date Elsewhere, Pcp PCP - General Internal Medicine 10/29/23
--- OUTSIDE RECORDS SUMMARY | 2024-01-31 20:49 | XMS_ITS | Patient Health Record ---
Author Organization [employer] Address [address] [facility] [place] [id number] Care Team Providers Care Co Founder And Chief Strategy Officer Name Role Phone NONE, Use Primary Care Provider UnavailMikal Grayson Unavailable [phone] DO Baldwin Brian R. Unavailable Unavailable ALLERGIES Allergen (clinical drug ingredient) Drug/Non Drug Allergy documented on EMR Reaction Allergy Type Onset Date Status Moderna COVID-19 Vaccine Unknown Drug Allergy Active REASON FOR REFERRAL No Information MEDICATIONS Medication [...] (M79.672) Active confirmed Pain in left foot (2669547200081 07) Problem Overweight (E66.3) Active confirmed Overweight (607368430) PLAN OF TREATMENT Pending Test Test Name Order Date ROUTINE VENIPUNCTURE 10/09/2022 MEDICAL (GENERAL) HISTORY Medical History History ICD Code depression fibromyalgia thyroid one working kidney factor 2 clotting disorder Surgical History Surgery Date(Month/Year) hysterectomy cholecystectomy appendectomy ankle surgery wrist hip, Left x 3 Hospitalization History Reason Date(Month/Year) surgery
--- OUTSIDE RECORDS SUMMARY | 2024-01-31 20:49 | XMS_ITS ---
Author Organization [facility] Address [address] [place] [address] Care Team Providers Care Control Clerk [employer] Name Role Phone Unavailable Unavailable Unavailable Surgery Details Not on file Complications Check Surgery Details section. Procedure Estimated Blood Loss Check Surgery Details section. Procedure Findings Check Surgery Details section. Procedure Specimens Taken Check Surgery Details section.
--- OUTSIDE RECORDS SUMMARY | 2024-01-31 20:49 | XMS_ITS | Clinical Summary ---
Author Organization [facility] Address [address] [place] [id number] Care Team Providers Care Wire Bender Hand Name Role Phone Elsewhere, Pcp Primary Care Provider Unavailabl e Source Comments Patient records contain information from all sites at [facility]. For routine questions regarding patient records, call [phone] during business hours, M-F 8:00 AM - 5:00 PM Central Time. Record requests for emergency care only can be directed to [phone] at any time.[facility] Allergies Active Allergy Reactions Criticality Noted Date [...] Closed Initial Left 10/20/2023 Arthritis Toe 10/20/2023 Encounters Date Type Department Care Team Description 01/25/2024 Clinical Communication Primary Care on Demand at [address] [phone] Aba Santos M.D. 01/20/2024 Clinical Communication Primary Care on Demand at [address] [phone] Aba Santos M.D. 01/04/2024 8:30 AM CDT Office Visit Department of Orthopedic Surgery in [address] [phone] Mercy Hernández am, D.PJennieMJennie Ingrown Nail (Primary Dx) Discharge Disposition: Home or Self Care 01/04/2024 7:50 AM CDT - 01/04/2024 11:59 PM CDT Hospital Encounter Department of Radiology in [address] [phone] Mercy Hernández am, D.PJennieMJennie Swelling Toe Discharge Disposition: Home or Self Care 12/28/2023 Orders Only Department of Orthopedic Surgery in [place] [phone] Mercy Hernández am, D.P.M. Swelling Toe (Primary Dx) 12/24/2023 Clinical Communication Department of Orthopedic Surgery in [address] [phone] Mercy Hernández am, D.P.M. Nurse Assessment (Post op question for podiatry) 12/08/2023 1:06 PM CDT - 12/08/2023 11:59 PM CDT Hospital Encounter Department of Radiology in [address] [phone] Mercy Hernández am, D.PBradley Follow Up Surgery Exam; Fracture Lesser Toe Middle Phalanx Displaced Closed Initial Left Discharge Disposition: Home or Self Care 12/08/2023 1:00 PM CDT Office Visit Department of Orthopedic Surgery in [address] [phone] Mercy Hernández am, D.PBradley Follow Up Surgery Exam (Primary Dx); Fracture Lesser Toe Middle Phalanx Displaced Closed Initial Left Discharge Disposition: Home or Self Care 12/08/2023 Orders Only Department of Orthopedic Surgery in [address] [phone] Jeanie Pina L.P.NJennie 11/23/2023 8:24 AM CDT - 11/23/2023 11:59 PM CDT Hospital Encounter Department of Radiology in [address] [phone] Mercy Hernández am, D.PBradley Fracture Lesser Toe Middle Phalanx Displaced Closed Initial Left Discharge Disposition: Home or Self Care 11/23/2023 8:00 AM CDT Office Visit Department of Orthopedic Surgery in [address] [phone] Mercy Hernández am, D.PBradley Fracture Lesser Toe Middle Phalanx Displaced Closed Initial Left (Primary Dx); Follow Up Surgery Exam Discharge Disposition: Home or Self Care 11/18/2023 8:00 AM CDT Office Visit Department of Orthopedic Surgery in [address] [phone] Mercy Hernández am, D.P.M. Follow Up Surgery Exam (Primary Dx) Discharge Disposition: Home or Self Care 11/11/2023 11:00 AM CDT Office Visit Department of Orthopedic Surgery in [address] [phone] Mercy Hernández am, D.P.M. Follow Up Surgery Exam (Primary Dx) Discharge Disposition: Home or Self Care 11/05/2023 9:15 AM CDT Ancillary Procedure Department of General Surgery 11/05/2023 8:55 AM CDT Ancillary Procedure Department of General Surgery 11/05/2023 8:50 AM CDT - 11/05/2023 10:45 AM CDT Surgery Out[facility] in [address] [phone] Mercy Hernández am, D.P.M. OPEN REDUCTION INTERNAL FIXATION Middle PHALANX 2nd toe 11/05/2023 8:31 AM CDT Anesthesia Event Outpatient Procedure Center in [address] [phone] Jeanie Mcgill M.D. 11/05/2023 7:36 AM CDT - 11/05/2023 10:50 AM CDT Hospital Encounter Outpatient Procedure Center in [address] [phone] Mercy Hernández am, D.P.M. Fracture Lesser Toe Middle Phalanx Displaced Closed Initial Left (Primary Dx); Hammer Toe Acquired Left Discharge Disposition: Home or Self Care 11/05/2023 7:27 AM CDT - 11/05/2023 7:35 AM CDT Hospital Encounter Department of Radiology in [address] [place] [phone] Mercy Hernández am, D.P.M. Pain Foot Left Discharge Disposition: Home or Self Care from Last 3 Months Immunizations Name Administration Dates Next Due HepB Adult 02/15/2004 Influenza (IM) Preservative Free 05/07/2009 Influenza TIV (IM) 06/06/2010, 8,06/11/2007,2004,05/30/2003,06/02/2002,08/20/2001 Influenza, Seasonal, Injectable 06/06/20 10,06/08/2008,06/11/2007,2004,05/30/2003,06/02/2002,08/20/2001 Influenza, Unspecified 04/29/2013,07/23/2012 PPSV23 05/05/2014 RZV (SHINGRIX) 06/26/2020 Tdap 09/21/2017,04/07/2008 influenza vaccine QV(FLUBLOK ) (18 years or older) (PF) 06/02/2022,04/28/2021 influenza vaccine quad (FLUZONE/FLUARIX) (6 months and older)(PF) 06/26/2020,07/04/2019,05/25/2018,2017,05/13/2017 Family History Medical History Relation Name Comments Anesthesia problems Neg Hx Social History Tobacco Use Types Packs/Day Years [...] 11/05/2023 7:54 AM CDT Plan of Treatment Health Maintenance Due Date Last Done Comments CT Colonography 1964 Cologuard 1965 FIT 1965 HIV Screening 1965 Hepatitis C Screening 1965 Hepatitis B Vaccines (2 of 3 - 19+ 3-dose series) 03/14/2004 02/15/2004 Mammogram 09/07/2021 09/07/2020, 09/07/2020 COVID-19 Vaccine ( season) 2023 08/12/2021, 02/07/2021, 12/13/2020 Influenza Vaccine (#1) 2023 , 04/28/2021, 06/26/2020, Additional history exists Depression Screening (Annual PHQ-2) 08/17/2023 Creatinine Level (Kidney Function Test) 10/28/2024 10/29/2023, 04/09/2021, 02/14/2020, Additional history exists Potassium Level 10/28/2024 10/29/2023, 03/18, 02/14/2020, Additional history exists Sodium Level 10/28/2024 10/29/2023, 03/18, 02/14/2020, Additional history exists Thyroid Stimulating Hormone (TSH) test for thyroid function 10/28/2024 10/29/2023, 04/09/2021, 09/27/2019 Lipid (Cholesterol) Screening 04/09/2026 04/09/2021, 06/22/2018 Fasting Glucose for Diabetes Screening 10/28/2026 10/29/2023, 04/09/2021, 02/14/2020, Additional history exists DTaP,Tdap,and Td Vaccines (3 - Td or Tdap) 09/21/2027 09/21/2017, 04/07/2008 Colonoscopy 07/14/2028 07/14/2018 Colorectal Cancer Screening 07/14/2028 Pneumococcal vaccine (0-64 years) Aged Out 05/05/2014 No longer eligible based on patient's age to complete this topic Zoster Vaccines Completed 06/02/2022, 06/26/2020 Medical Devices Implanted Type Area Animal Husbandman Device Identifier Shelf Expiration Date Model / Serial / Lot Scrw St Fthrd Nlck Sld 2.0x6 - [id number] Implanted:Qty: 2 on 11/05/2023 by Mercy Hogan D.P.MJennie at [facility] Hardware e.g. pins/screws/r ods [employer] [id number] / / 24.[address] Fthrd Nlck Sld 2.0x7 - [id number] Implanted:Qty: 1 on 11/05/2023 by Mercy Hogan D.P.MJennie at [facility] Hardware e.g. pins/screws/r ods [employer] [id number] / / 24.0 19 Plt Hnd Lcd 4h Lck 2.4x24 - [id number] Implanted:Qty: 1 on 11/05/2023 by Mercy Hogan D.P.MJennie at [facility] Hardware e.g. pins/screws/r ods [employer] [id number] [...] BILATERAL WITH TOMOSYNTHESIS Routine 09/07/2020 11:20 AM ARCHITECTURE ANALYST from Last 3 Months or Most Recently [...] milddegenerative change. Mild soft tissue swelling Mercy Brown D.P.M. IMG DI AGNOSTIC IMAGING PROCEDURES * FL Fluoro Less Than 1 Hour (11/05/2023 9:41 AM CDT) Narrative 8000 LOS SEMN - 11/05/2023 9:44 AM CDT This exam does not require a radiologist review or interpretation. Please refer to the patient's medical record on this date for clinical details. Mercy PeraltaPBradley IMG FL UOROSCOPY PROCEDURES 8000 LOS SEMN * Foot-Surgery Image Exam [...] RAD IMAGI NG PROCEDURES Performing Organization Address City/[facility]/ZIP Co de Phone Number IIMS NA * Thyroid Function [place] (10/29/2023 1:04 PM CDT) TSH, Sensitive 2.1 0.3 - 4.2 mIU/L 10/29/2023 6:29 PM CDT OWAT Blood (Blood, Venous) 10/29/2023 1:04 PM CDT 10/29/2023 5:47 PM CDT Jailene Connors APRN, C.N.P., D .N.P. LAB BLOOD ADD-ON [facility] [address] [place] [address], [place] OWAT [facility] [place] [address] [place] [address] * (ABNORMAL) Basic Metabolic Panel (10/29/2023 1:04 [...] Mercy Brown D.P.M. LAB BL OOD ADD-ON [facility] [address] [place] [address], [place] OW[place] [facility] [place] [address] [place] [address] from Last 3 Months or Most Recently Relevant to Health Maintenance Advance Directives For more information, please contact: [phone] * Full Code (Latest Code Status on File) Date Activated Date Inactivated Comments 11/05/2023 9:43 AM 11/05/2023 12:56 PM Question Answer Comments Full Code: Discussed * Full Code Date Activated Date Inactivated Comments 11/05/2023 7:38 AM 11/05/2023 9:43 AM Question Answer Comments Full Code: Discussed Care Teams Wire Bender Hand Relationship Specialty Start Date End Date Elsewhere, Pcp PCP - General Internal Medicine 10/29/23
[2024-01-31 20:50] LABS: Basophils Percent Auto 0.2 % (0.0-3.0); Eosinophils Percent Auto 0.2 % (0.0-7.0); Hematocrit 44.5 % (33.0-51.0); Hemoglobin* 15.8 gm/dL (12.0-16.0); Immature Granulocytes Pct Auto 0.3 %; Lymphocytes Percent Auto 6.3 % (20-44); Mean Corpuscular HGB Conc 36 gm/dL (32-36); Mean Corpuscular Hemoglobin 32 pg (26-34); Mean Corpuscular Volume 89 fL (80-100); Platelet Count* 180 K/uL (140-440); RDW Coefficient of Variation % 12.8 % (11.5-15.5); Red Blood Count 4.99 m/uL (4.00-5.20)
--- OUTSIDE RECORDS SUMMARY | 2024-01-31 20:50 | XMS_ITS | Encounter Summary ---
Author Organization [facility] Address [address] [place] [address] Care Team Providers Care Colorer Machine Name Role Phone Elsewhere, Pcp Primary Care Provider Unavailabl e Reason for Visit * Auth/Cert (Routine) Specialty Diagnoses / Procedures Referred By Fawad t Referred To Contact Diagnoses Hammer Toe Acquired Left Fracture Lesser Toe Middle Phalanx Displaced Closed Initial Left Arthritis Toe Hammer Toe Acquired Left [M20.42] Fracture Lesser Toe Middle Phalanx Displaced Closed Initial Left [S92.522A] Arthritis Toe [M19.90] Procedures NC OPN TX PHALANX FX NC CORRECTION HAMMERTOE OPEN REDUCTION INTERNAL FIXATION Middle PHALANX 2nd toe ARTHRODESIS proximal interphalangeal joint 2nd TOE Referral ID Status Reason Start Date Expiration Date Visits Re quested Visits Authorized [id number] 1 1 Encounter Details Date Type Department Care Team (Late st Contact Info) Description 11/05/2023 8:50 AM CDT - 11/05/2023 10:45 AM CDT Surgery [facility] in [place], [place] [address] [place] [id number] Mercy Brown D.PJennieM. [address] [place] [id number] OPEN REDUCTION INTERNAL FIXATION Middle PHALANX 2nd toe Social History Tobacco Use Types Packs/Day Years [...] Mass Index 32.18 11/05/2023 7:54 AM CDT documented in this encounter Medications at Time of Discharge Medication Sig Dispensed Refills Start Date End Date albuterol 90 mcg/actuation inhaler Inhale 2 puffs every 4 (four) hours as needed. 04/09/2021 amphetamine-dextroamphe tamine (ADDERALL XR) 20 mg 24 hr capsule Take 20 mg by mouth. 04/14/2022 amphetamine-dextroamphe tamine (ADDERALL XR) 20 mg 24 hr capsule Take 1 capsule by mouth every morning. 04/14/2022 bisacodyL (DULCOLAX) 5 mg EC tablet Take 10 mg by mouth daily. buPROPion XL (WELLBUTRIN XL) 300 mg 24 hr tablet Take 300 mg by mouth every morning. 10/16/2022 cholecalciferol (VITAMIN D3) 125 mcg (5,000 Unit) capsule Take 5,000 Units by mouth daily. 01/19/2020 citalopram (CeleXA) 40 mg tablet Take 1 tablet by mouth at bedtime. 09/11/2023 clonazePAM (KlonoPIN) 1 mg tablet 1 MG ORALLY TWICE A DAY NEEDED FOR ANXIETY 08/25/2023 furosemide (LASIX) 40 mg tablet Take 1 tablet by mouth daily. 04/28/2023 levothyroxine (SYNTHROID, LEVOTHROID) 50 mcg tablet Take 1 tablet by mouth daily. 05/27/2023 pregabalin (LYRICA) 300 mg capsule Take 1 capsule by mouth 2 (two) times a day. 10/12/2023 traZODone (DESYREL) 100 mg tablet Take 150 mg by mouth at bedtime. 10/21/2022 acetaminophen-codeine (TYLENOL #3) 300-30 mg per tabletIndications:Acute Pain Take 1 tablet by mouth every 6 (six) hours as needed for severe pain or score 7-10 of 10 for up to 3 days Indications: Acute Pain. 12 tablet 11/05/2023 11/08/2023 documented as of this encounter OR Notes * Op Note - Mercy Brown D.P.M. - 11/05/2023 8:42 AM CDT Pre-op Diagnosis Hammer Toe Acquired Left,Fracture Lesser Toe Middle Phalanx Displaced Closed Initial Left,ArthritisToe Post-op Diagnosis Hammer Toe Acquired Left,Fracture Lesser Toe Middle Phalanx Displaced Closed Initial Left,ArthritisToe Procedure Open reduction internal fixation and fusion of proximal interphalangeal joint left 2nd toe Anesthesia Monitored anesthesia care Injectables 15 mL of a 50 50 mixture 1% lidocaine plain 0.5% Marcaine plain Hemostasis Pneumatic ankle tourniquet set at 250 mmHg Estimated blood loss Less than 3 mL Fixation Synthes 2.0 mm 4 hole plate, 6 mm length X 2 2.0 mm screw, 7 mm length 2.0 mm screw Radiology Interoperative fluoroscopy Drains None Findings As expected. Complications None Operative Note Narrative Kelly presented to [facility] for outpatient surgery to her left foot. She had fractured the middle phalanx of the 2nd digit and arthritic changes had developed. Plan procedure today for open reduction internal fixation of the fracture and fusion of the proximal interphalangeal joint left 2nd toe. Surgical site is marked. Consent reviewed and signed by patient. Patient was brought into operating room placed in supine position on operating table. Monitored anesthesia was initiated. A 2nd ray block was performed injecting 10 mL of a 50 50 mixture 1% lidocaine plain 0.5% Marcaine plain. The left foot was scrubbed prepped and draped in usual aseptic manner. A surgical pause was performed prior to initiating surgical procedure. Pressure was applied to the left foot for exsanguination pneumatic ankle tourniquet elevated to 250 mmHg throughout course of procedure. A longitudinal incision was made over the dorsum of the proximal interphalangeal joint. The incision was deepened through skin and subcutaneous tissues retracting all vital neurovascular structures to expose the extensor tendon at the level of the base of proximal phalanx to the distal interphalangeal joint. A transverse tenotomy was performed and extensor tendon resected back to expose the dorsal shaft of the proximal phalanx and the middle phalanx. Pseudo arthrosis was noted where fracture had been visualized on x-ray. This was removed with a sagittal saw and the head of the proximal phalanx was removed with sagittal saw for [id number] contact for fusion. Using a Synthes 2.0 mm 4 hole platearthrodesis was performed anchoring with 2 6 mm length 2.0 mm screw and 1 7 mm length 2.0 mm screw. Fixation was visualized with interoperative fluoroscopy for proper placement and alignment. The surgical site flushed. Extensor tendon reapproximated with 3-0 Vicryl. Skin reapproximated with 4-0 nylon. Additional injection of 5 mL of a 50 50 mixture 1% lidocaine plain 0.5% Marcaine plain was made for postoperative pain management. Pneumatic ankle tourniquet lowered noting instant return of colorto the left foot and all digits. A sterile dressing applied with Betadine- soaked Adaptic over the second toe 4x4s Kerlix and an Tae wrap for mild compression. Patient was fit with a cam boot. She is transferred outpatient surgery for discharge. She is scheduled to follow [facility] for postoperative care. Mercy Brown D.P.M. * Brief Op Note - Mercy Brown D.P.M. - 11/05/2023 8:42 AM CDT Pre-op Diagnosis Hammer Toe Acquired Left,Fracture Lesser Toe Middle Phalanx Displaced Closed Initial Left,ArthritisToe Post-op Diagnosis Hammer Toe Acquired Left,Fracture Lesser Toe Middle Phalanx Displaced Closed Initial Left,ArthritisToe Procedure open reduction internal fixation and fusion of proximal interphalangeal joint left 2nd toe Findings As expected. Complications None Mercy Brown D.P.M. documented in this encounter Plan of Treatment Not on file documented as of this encounter Procedures Procedure Name Priority Date/Time Associated Diagnosis Comments ADULT OXYGEN THERAPY Routine 11/05/2023 9:31 AM CDT ARTHRODESIS WITH FUSION TOE 11/05/2023 8:21 AM CDT Hammer Toe Acquired Left Fracture Lesser Toe Middle Phalanx Displaced Closed Initial Left Arthritis Toe OPEN REDUCTION INTERNAL FIXATION - PHALANX - PROXIMAL FRACTURE 11/05/2023 8:21 AM CDT Hammer Toe Acquired Left Fracture Lesser Toe Middle Phalanx Displaced Closed Initial Left Arthritis Toe documented in this encounter Visit Diagnoses Diagnosis Fracture Lesser Toe Middle Phalanx Displaced Closed Initial Left- Primary Fracture Lesser Toe Middle Phalanx Displaced Closed Initial Left Hammer Toe Acquired Left Hammer Toe Acquired Left Arthritis Toe Hammer Toe Acquired Left Fracture Lesser Toe Middle Phalanx Displaced Closed Initial Left Arthritis Toe documented in this encounter Admitting Diagnoses Diagnosis Hammer Toe Acquired Left Fracture Lesser Toe Middle Phalanx Displaced Closed Initial Left Arthritis Toe documented in this encounter Administered Medications Inactive Administered Medications - up to 3 most recent administrations Medication Order MAR Action Action Date Dose Rate Site acetaminophen tablet 1,000 mg (TYLENOL) 1,000 mg, oral, Once, On Ada 11/05/23 at 0800, For 1 dose, Pre-Op Given 11/05/2023 8:03 AM CDT 1,000 mg chlorhexidine 0.12 % mouthwash 15 mL (PERIDEX) 15 mL, swish & spit, Once as needed, Chlorhexidine mouthwash (Peridex) should be given if patient did not complete oral care, if completion is greater than 4 hours prior to surgery or procedure start time and they do not have the opportunity to brush their teeth now (or at this time)., Starting on Ada 11/05/23 at 0738, For 1 dose, Pre-Op, Instruct patient to swish entire content of Chlorhexidine 0.12% mouthwash (PERIDEX) 15 mL cup for 30 seconds, then spit, swish & spit. If patient is at risk for aspiration, apply Chlorhexidine 0.12% mouthwash to a swab and gently swab the patient's teeth and gums. Ensure swab is not oversaturated. Lactated Ringer's 20 mL/hr, intravenous, Continuous, Starting on Ada 11/05/23 at 0800, Pre-Op New Bag 11/05/2023 8:26 AM CDT Lactated Ringer's 20 mL/hr, intravenous, Once, On Ada 11/05/23 at 0800, For 1 dose, Pre-Op New Bag 11/05/2023 8:22 AM CDT 20 mL/hr 20 mL/hr lidocaine 10 mg/mL (1 %) injection 0.1 mL (XYLOCAINE) 0.1 mL, intradermal, As needed, for venipuncture, Starting on Ada 11/05/23 at 0738, Pre-Op lidocaine 50 mL, BUPivacaine PF 50 mL 100 mL injection As needed, Starting on Ada 11/05/23 at 0845, Intra-Op Given 11/05/2023 8:45 AM CDT 20 mL metoprolol tablet 12.5 mg (LOPRESSOR) 12.5 mg, oral, Once as needed, if patient did not take their last scheduled dose of beta olivia prior to arrival, Starting on Ada 11/05/23 at 0738, For 1 dose, Pre-Op, Do not give if patient does not take scheduled beta blockers, if patient is receiving intravenous vasopressors or inotropes, if heart rate is less than 50 beats per minute, if systolic blood pressure is less than 90 mmHg or if diastolic blood pressure is less than 40 mmHg, or if patient has an allergy to metoprolol. sodium chloride 0.9 % injection 10 mL 10 mL, intravenous, As needed, line care, Starting on Ada 11/05/23 at 0738, Pre-Op, Peripheral Intravenous Catheter and Rapid Infusion Catheter, prior to blood sampling, post blood transfusion or post blood sampling sodium chloride 0.9 % injection 3 mL 3 mL, intravenous, As needed, line care, Starting on Ada 11/05/23 at 0738, Pre-Op, Prior to and following infusion and between multiple consecutive infusions: sodium chloride 0.9 % injection sodium chloride 0.9 % injection 3 mL 3 mL, intravenous, Every 12 hours scheduled, First dose on Ada 11/05/23 at 0900, Pre-Op, Peripheral Intravenous Catheter and Rapid Infusion Catheter, when no infusion to maintain patency traMADoL tablet 100 mg (ULTRAM) 100 mg, oral, Every 6 hours PRN, severe pain or score 7-10 of 10, Starting on Ada 11/05/23 at 0943, PACU & Post-Op, First line therapy or for pain greater than comfort goal (not to exceed 400 mg in 24 hours)., Restriction Criteria (Pharmacy will review and approve if criteria met): Use in adults 18 years and older traMADoL tablet 50 mg (ULTRAM) 50 mg, oral, Every 6 hours PRN, moderate pain or score 4-6 of 10, Starting on Ada 11/05/23 at 0943, PACU & Post-Op, First line therapy, Restriction Criteria (Pharmacy will review and approve if criteria met): Use in adults 18 years and older documented in this encounter Active and Recently Administered Medications Times are shown in CDT. Scheduled Medication Order 11/03/2023 11/04/2023 11/05/2023 acetaminophen tablet 1,000 mg (TYLENOL) (COMPLETED) 1,000 mg, oral, Once, On Ada 11/05/23 at 0800, For 1 dose, Pre-Op 0803 (Given - Provid er: Augustina Carrera [place].) ceFAZolin injection 2,000 mg (ANCEF) (COMPLETED) 2,000 mg (rounded from 2,407.5 mg = 25 mg/kg ? 96.3 kg), intravenous, Once, On Ada 11/05/23 at 0800, For 1 dose, Intra-Op, Administer within 1 hour prior to surgical incision If needed, reconstitute vial per package insert instructions. See IVAG for administration guidelines., Drug Monitoring Program: Pharmacist to adjust medication dosing based on indication and drug clearance factors., Indications: Prophylaxis, surgical 0839 (Given - Provid er: Millicent Lopez, ACCOUNTS RECEIVABLE ASSOCIATE, SUPPLY CHAIN DESIGN MANAGER, MNA, R.N.) Lactated Ringer's (COMPLETED) 20 mL/hr, intravenous, Once, On Ada 11/05/23 at 0800, For 1 dose, Pre-Op 0822 (New Bag - Prov ider: Augustina Carrera R.N.) lidocaine 10 mg/mL (1 %) injection 1 mL (XYLOCAINE) 1 mL, infiltration, Once, On Ada 11/05/23 at 0800, For 1 dose, Pre-Op, May admin up to 1 mL at the site of IV site if not allergic to lidocaine 0800 (Due) sodium chloride 0.9 % injection 3 mL 3 mL, intravenous, Every 12 hours scheduled, First dose on Ada 11/05/23 at 0900, Pre-Op, Peripheral Intravenous Catheter and Rapid Infusion Catheter, when no infusion to maintain patency 0900 (Due) sodium chloride 0.9 % injection 3 mL 3 mL, intravenous, Every 12 hours scheduled, First dose on Ada 11/05/23 at 0900, Pre-Op, Peripheral Intravenous Catheter and Rapid Infusion Catheter, when no infusion to maintain patency 0900 (Due) Continuous Medication Order 11/03/2023 11/04/2023 11/05/2023 Lactated Ringer's 20 mL/hr, intravenous, Continuous, Starting on Ada 11/05/23 at 0800, Pre-Op 0826 (New Bag - Prov ider: Millicent Lopez APRN, ASHLEY, RACHELLE, R.N.)0932 (Anesthesia Volume Adjustment - Provider: Millicent Lopez APRN, ASHLEY, RACHELLE, R.N.)1008 (Stopped - Provider: Augustina Carrera R.N.) PRN Medication Order 11/03/2023 11/04/2023 11/05/2023 albuterol nebulizer solution 2.5 mg 2.5 mg, nebulization, Once as needed, shortness of breath, Starting on Ada 11/05/23 at 0931, For 1 dose, PACU (only) chlorhexidine 0.12 % mouthwash 15 mL (PERIDEX) 15 mL, swish & spit, Once as needed, Chlorhexidine mouthwash (Peridex) should be given if patient did not complete oral care, if completion is greater than 4 hours prior to surgery or procedure start time and they do not have the opportunity to brush their teeth now (or at this time)., Starting on Ada 11/05/23 at 0738, For 1 dose, Pre-Op, Instruct patient to swish entire content of Chlorhexidine 0.12% mouthwash (PERIDEX) 15 mL cup for 30 seconds, then spit, swish & spit. If patient is at risk for aspiration, apply Chlorhexidine 0.12% mouthwash to a swab and gently swab the patient's teeth and gums. Ensure swab is not oversaturated. fentaNYL injection 25 mcg (SUBLIMAZE) 25 mcg, intravenous, Every 2 min PRN, For pain 4 or greater (maximum 100 mcg). If max dose of Fentanyl is reached and if pain is greater than 4, discontinue Fentanyl: give Hydromorphone, Starting on Ada 11/05/23 at 0931, PACU (only) granisetron (PF) injection 1 mg (KYTRIL) 1 mg, intravenous, Once as needed, nausea, vomiting, Starting on Ada 11/05/23 at 0931, For 1 dose, PACU (only), If patient does not respond to ondansetron or haloperidol. (order of antiemetic administration - ondansetron then haloperidol then granisetron) haloperidol lactate injection 1 mg (HALDOL) 1 mg, intravenous, Every 6 hours PRN, nausea, vomiting, Starting on Ada 11/05/23 at 0931, PACU (only), Total of 3 doses in 24 hour period. RASS must be -2 or higher to administer. If nausea and vomiting persists, move to granisteron. (order of antiemetic administration - ondansetron then haloperidol then granisetron) haloperidol lactate injection 1 mg (HALDOL) 1 mg, intravenous, Every 6 hours PRN, nausea, vomiting, Starting on Ada 11/05/23 at 0943, For 48 hours, PACU & Post-Op, Total of 3 doses in 24 hour period. RASS must be -2 or higher to administer. Reassess for nausea or vomiting after at least 10 minutes. If nausea or vomiting persists administer next ordered antiemetic medications (order for antiemetic medication administration ondansetron then haloperidol then prochlorperazine) HYDROmorphone injection 0.5 mg (DILAUDID) 0.5 mg, intravenous, Every 5 min PRN, moderate pain or score 4-6 of 10, severe pain or score 7-10 of 10, Starting on Ada 11/05/23 at 0931, PACU (only), Up to maximum total dose of 2 mg ketamine injection 5 mg (KETALAR) 5 mg, intravenous, Once as needed, Refractory moderate pain or score 4-6 of 10, Refractory severe pain score 7-10 of 10 after fentanyl or hydromorphone administration, Pain sedation mismatch AND RASS less than -1, Starting on Ada 11/05/23 at 0931, For 1 dose, PACU (only) lidocaine 10 mg/mL (1 %) injection 0.1 mL (XYLOCAINE) 0.1 mL, intradermal, As needed, for venipuncture, Starting on Ada 11/05/23 at 0738, Pre-Op lidocaine 50 mL, BUPivacaine PF 50 mL 100 mL injection (CANCELED) As needed, Starting on Ada 11/05/23 at 0845, Intra-Op 0845 (Given - Provid er: Israel Mckeon.P.MJennie) metoprolol tablet 12.5 mg (LOPRESSOR) 12.5 mg, oral, Once as needed, if patient did not take their last scheduled dose of beta olivia prior to arrival, Starting on Ada 11/05/23 at 0738, For 1 dose, Pre-Op, Do not give if patient does not take scheduled beta blockers, if patient is receiving intravenous vasopressors or inotropes, if heart rate is less than 50 beats per minute, if systolic blood pressure is less than 90 mmHg or if diastolic blood pressure is less than 40 mmHg, or if patient has an allergy to metoprolol. naloxone injection 0.2 mg 0.2 mg, intravenous, As needed, respiratory depression, Starting on Ada 11/05/23 at 0943, For RASS Score -4 or less, respiratory rate of less than 8 breaths/min. Notify provider/service and rapid response team (if available at institution). ondansetron (PF) injection 4 mg (ZOFRAN) 4 mg, intravenous, Every 6 hours PRN, nausea, vomiting, Starting on Ada 11/05/23 at 1430, For 48 hours, PACU & Post-Op, Reassess for nausea or vomiting after at least 10 minutes. If nausea or vomiting persists administer next ordered antiemetic medications (order for antiemetic medication administration ondansetron then haloperidol then prochlorperazine). oxyCODONE IR tablet 5 mg (ROXICODONE) 5 mg, oral, Once as needed, For pain 4 or greater, Starting on Ada 11/05/23 at 0931, For 1 dose, PACU (only) prochlorperazine injection 5 mg (COMPAZINE) 5 mg, intravenous, Every 6 hours PRN, nausea, vomiting, Starting on Ada 11/05/23 at 0943, For 48 hours, PACU & Post-Op, RASS must be -2 or higher to administer. Reassess for nausea/vomiting after at least 10 minutes. If nausea or vomiting persists administer next ordered antiemetic medications (order for antiemetic medication administration ondansetron then haloperidol then prochlorperazine) sodium chloride 0.9 % injection 10 mL 10 mL, intravenous, As needed, line care, Starting on Ada 11/05/23 at 0738, Pre-Op, Peripheral Intravenous Catheter and Rapid Infusion Catheter, prior to blood sampling, post blood transfusion or post blood sampling sodium chloride 0.9 % injection 10 mL 10 mL, intravenous, As needed, line care, Starting on Ada 11/05/23 at 0738, Pre-Op, Peripheral Intravenous Catheter and Rapid Infusion Catheter, prior to blood sampling, post blood transfusion or post blood sampling sodium chloride 0.9 % injection 3 mL 3 mL, intravenous, As needed, line care, Starting on Ada 11/05/23 at 0738, Pre-Op, Prior to and following infusion and between multiple consecutive infusions: sodium chloride 0.9 % injection sodium chloride 0.9 % injection 3 mL 3 mL, intravenous, As needed, line care, Starting on Ada 11/05/23 at 0738, Pre-Op, Prior to and following infusion and between multiple consecutive infusions: sodium chloride 0.9 % injection traMADoL tablet 100 mg (ULTRAM)(Linked Group 1) 100 mg, oral, Every 6 hours PRN, severe pain or score 7-10 of 10, Starting on Ada 11/05/23 at 0943, PACU & Post-Op, First line therapy or for pain greater than comfort goal (not to exceed 400 mg in 24 hours)., Restriction Criteria (Pharmacy will review and approve if criteria met): Use in adults 18 years and older traMADoL tablet 50 mg (ULTRAM)(Linked Group 1) 50 mg, oral, Every 6 hours PRN, moderate pain or score 4-6 of 10, Starting on Ada 11/05/23 at 0943, PACU & Post-Op, First line therapy, Restriction Criteria (Pharmacy will review and approve if criteria met): Use in adults 18 years and older Linked Groups Order Group 1: traMADoL tablet 50 mg (ULTRAM)Jump to med 50 mg, oral, Every 6 hours PRN, moderate pain or score 4-6 of 10, Starting on Ada 11/05/23 at 0943, PACU & Post-Op, First line therapy, Restriction Criteria (Pharmacy will review and approve if criteria met): Use in adults 18 years and older Or traMADoL tablet 100 mg (ULTRAM)Jump to med 100 mg, oral, Every 6 hours PRN, severe pain or score 7-10 of 10, Starting on Ada 11/05/23 at 0943, PACU & Post-Op, First line therapy or for pain greater than comfort goal (not to exceed 400 mg in 24 hours)., Restriction Criteria (Pharmacy will review and approve if criteria met): Use in adults 18 years and older documented in this encounter Care Teams Colorer Machine Relationship Specialty Start Date End Date Elsewhere, Pcp PCP - General Internal Medicine 10/29/23 documented as of this encounter
--- OUTSIDE RECORDS SUMMARY | 2024-01-31 20:50 | XMS_ITS | Encounter Summary ---
Author Organization [facility] Address [address] [place] [address] Care Team Providers Care Catalyst Operator Gasoline Name Role Phone Elsewhere, Pcp Primary Care Provider Unavailabl e Encounter Details Date Type Department Care Team (Late st Contact Info) Description 11/05/2023 8:55 AM CDT Ancillary Procedure Department of General Surgery Social History Tobacco Use Types Packs/Day Years [...] on file documented as of this encounter Plan of Treatment Not on file documented as of this encounter Procedures Procedure Name Priority Date/Time Associated Diagnosis Comments SURGERY IMAGE EXAM Routine 11/05/2023 8: 54 AM CDT documented in this encounter Results * Foot-Surgery Image Exam (11/05/2023 8:54 AM CDT) 11/05/2023 8:51 AM CDT Narrative [facility] - 11/05/2023 8:54 AM CDT This order has been created and auto-finalized to support the import of images acquired without order. The clinical documentation to support these images can be found on the encounter that produced images. Provider Not In System IMG NON RAD IMAGI NG PROCEDURES [facility] NA documented in this encounter Visit Diagnoses Not on filedocumented in this encounter Care Teams Catalyst Operator Gasoline Relationship Specialty Start Date End Date Elsewhere, Pcp PCP - General Internal Medicine 10/29/23 documented as of this encounter
--- OUTSIDE RECORDS SUMMARY | 2024-01-31 20:50 | XMS_ITS | Encounter Summary ---
Author Organization [facility] Address [address] [place] [address] Care Team Providers Care Dictating Machine Transcriber Name Role Phone Elsewhere, Pcp Primary Care Provider Unavailabl e Reason for Referral * Outpatient (Routine) - Closed Specialty Diagnoses / Procedures Referred By Fawad ruffin Referred To Contact Diagnoses Follow Up Surgery Exam Fracture Lesser Toe Middle Phalanx Displaced Closed Initial Left Procedures DX Toes Left 3 Views Mercy Brown D.PJennieMJennie [address] [place] [phone] [facility] Region Referral ID Status Reason Start Date Expiration Date Visits Re quested Visits Authorized [id number] Closed 12/08/2023 12/07/2024 1 1 Reason for Visit * Reason Comments Post-op S/P ORIF middle phal anx and fusion of the proximal interphalangeal joint left 2nd toe (DOS:11/05/2023) * Outpatient (Routine) - Closed Specialty Diagnoses / Procedures Referred By Fawad ruffin Referred To Contact Orthopedic Surgery Mercy Brown D.PJennieMJennie [address] [place] [phone] [facility] Referral ID Status Reason Start Date Expiration Date Visits Re quested Visits Authorized [id number] Closed 11/23/2023 05/24/2025 1 1 Encounter Details Date Type Department Care Team ([facility] st Contact Info) Description 12/08/2023 1:00 PM CDT Office Visit Department of Orthopedic Surgery in [place], [place] [address] [place] [phone] Mercy Brown D.P.M. [address] [place] [phone] Follow Up Surgery Exam (Primary Dx); Fracture Lesser Toe Middle Phalanx Displaced Closed Initial Left Discharge Disposition: Home or Self Care Social [...] on file documented as of this encounter Progress Notes * Mercy Brown D.P.M. - 12/08/2023 1:00 PM CDT SUBJECTIVE Chief Complaint Patient presents with Left Foot - Post-op S/P ORIF middle phalanx and fusion of the proximal interphalangeal joint left 2nd toe (DOS:11/05/2023) HISTORY OF PRESENT ILLNESS Kelly is post operative open reduction internal fixation of fracture to the middle phalanx and fusion of the proximal interphalangeal joint left 2nd toe. Date of surgery was November 05, 2023. Procedure was performed at [place], [place]. Surgical procedure(s) performed Mercy Ojeda D.P.M.. OBJECTIVE PHYSICAL EXAMINATION General Appearance: Patient is alert and orientated to time place and person. Surgical Site: Left 2nd toe. Neurovascular intact. Local edema. Alignment good. ASSESSMENT / PLAN 1. Follow Up Surgery Exam 2. Fracture Lesser Toe Middle Phalanx Displaced Closed Initial Left DX Toes Left 3 Views Result Date: 12/08/2023 Impression: Second proximal interphalangeal arthroplasty with plate and screw internal fixation, hardware components remain well seated and intact. No dislocation. Negative for acute fracture. Comparison November 23, 2023. PLAN: Discussed with patient postoperative findings reduction internal fixation of fracture to the middlephalanx and fusion of the proximal interphalangeal joint of the left 2nd toe. X-ray taken today andalignment is good. Bone has not formed a solid bridge where the fusion was performed at the proximal interphalangeal joint. Recommend she continue surgical shoe for an additional 2 weeks. Assessment for the patient will be ongoing. Kelly will follow with podiatry for x-ray evaluation. This plan of care has been discussed with patient and all questions answered. documented in this encounter Plan of Treatment Not on file documented as of this encounter Results * DX Toes Left 3 Views (12/08/2023 1:27 PM CDT) Anatomical Region Laterality Modality Lower Extremity, Toes, Muscu loskeletal RST LOS, Musculoskeletal ARZ LOS, Muskuloskeletal FLA LOS Left Digit al Radiography Impressions 12/08/2023 1:42 PM CDT Second proximal interphalangeal arthroplasty with plate and screw internal fixation, hardware components remain well seated and intact. No dislocation. Negative for acute fracture. Comparison November 23, 2023. Narrative 12/08/2023 1:42 PM CDT EXAM: DX TOES LEFT 3 VIEWS Procedure Note Benjaimn Conner M.D. - 12/08/2023 EXAM: DX TOES LEFT 3 VIEWS IMPRESSION: Second proximal interphalangeal arthroplasty with plate and screw internalfixation, hardware components remain well seated and intact. Nodislocation. Negative for acute fracture. Comparison November 23, 2023. Mercy Brown D.P.M. IMG DI AGNOSTIC IMAGING PROCEDURES documented in this encounter Visit Diagnoses Diagnosis Follow Up Surgery Exam- Primary Fracture Lesser Toe Middle Phalanx Displaced Closed Initial Left Follow Up Surgery Exam Fracture Lesser Toe Middle Phalanx Displaced Closed Initial Left documented in this encounter Care Teams Dictating Machine Transcriber Relationship Specialty Start Date End Date Elsewhere, Pcp PCP - General Internal Medicine 10/29/23 documented as of this encounter
--- OUTSIDE RECORDS SUMMARY | 2024-01-31 20:50 | XMS_ITS | Encounter Summary ---
Author Organization [facility] Address [address] [place] [address] Care Team Providers Care Supervisor Gas Meter Repair Name Role Phone Elsewhere, Pcp Primary Care Provider Unavailabl e Reason for Visit * Reason Comments Post-op 1st Post op open red uction internal fixation left foot * Outpatient (Routine) - Closed Specialty Diagnoses / Procedures Referred By Fawad ruffin Referred To Contact Orthopedic Surgery Mercy Brown D.PJennieMJennie [address] [place] [phone] [facility] Referral ID Status Reason Start Date Expiration Date Visits Re quested Visits Authorized [id number] Closed 10/20/2023 04/20/2025 1 1 Encounter Details Date Type Department Care Team (Late st Contact Info) Description 11/11/2023 11:00 AM CDT Office Visit Department of Orthopedic Surgery in [place], [place] [address] [place] [phone] Mercy Brown D.PJennieMJennie [address] [place] [address] Follow Up Surgery Exam (Primary Dx) Discharge Disposition: Home or Self Care Social [...] Date Recorded Dental: Regular Dentist Unknown 02/11/20 22 Sex and Gender Information Value Date Recorded Sex Assigned at Not on file Gender Identity Not on file Sexual Orientation Not on file documented as of this encounter Progress Notes * Mercy Brown D.P.M. - 11/11/2023 11:00 AM CDT SUBJECTIVE Chief Complaint Patient presents with Left Foot - Post-op 1st Post op open reduction internal fixation left foot HISTORY OF PRESENT ILLNESS Kelly is post operative open reduction internal fixation of fracture to the middle phalanx and fusion of the proximal interphalangeal joint left 2nd toe. Date of surgery was November 05, 2023. Procedure was performed at [place], [place]. Surgical procedure(s) performed Mercy Ojeda D.P.M.. OBJECTIVE PHYSICAL EXAMINATION General Appearance: Patient is alert and orientated to time place and person. Surgical Site: Left 2nd toe. Neurovascular is intact. Digital alignment is rectus. Incision healing well. ASSESSMENT / PLAN 1. Follow Up Surgery Exam PLAN: Discussed with patient and postoperative findings reduction internal fixation of fracture to the middle phalanx and fusion of the proximal interphalangeal joint of the left 2nd toe. Surgical site is stable. Kelly has been compliant Cam boot. Recommend she continued dressing and elevation for control of edema to the digit. Assessment for the patient will be ongoing. Kelly will follow with podiatry evaluation removal of sutures. This plan of care has been discussed with patient and all questions answered. documented in this encounter Plan of Treatment Not on file documented as of this encounter Visit Diagnoses Diagnosis Follow Up Surgery Exam- Primary documented in this encounter Care Teams Supervisor Gas Meter Repair Relationship Specialty Start Date End Date Elsewhere, Pcp PCP - General Internal Medicine 10/29/23 documented as of this encounter
--- OUTSIDE RECORDS SUMMARY | 2024-01-31 20:50 | XMS_ITS | Encounter Summary ---
Author Organization [facility] Address [address] [place] [address] Care Team Providers Care Western Tack Assembly Line Worker Name Role Phone Elsewhere, Pcp Primary Care Provider Unavailabl e Reason for Visit * Auth/Cert (Routine) Specialty Diagnoses / Procedures Referred By Fawad t Referred To Contact Diagnoses Hammer Toe Acquired Left Fracture Lesser Toe Middle Phalanx Displaced Closed Initial Left Arthritis Toe Hammer Toe Acquired Left [M20.42] Fracture Lesser Toe Middle Phalanx Displaced Closed Initial Left [S92.522A] Arthritis Toe [M19.90] Procedures NY OPN TX PHALANX FX NY CORRECTION HAMMERTOE OPEN REDUCTION INTERNAL FIXATION Middle PHALANX 2nd toe ARTHRODESIS proximal interphalangeal joint 2nd TOE Referral ID Status Reason Start Date Expiration Date Visits Re quested Visits Authorized [id number] 1 1 Encounter Details Date Type Department Care Team (Late st Contact Info) Description 11/05/2023 8:31 AM CDT Anesthesia Event Outpatient Procedure Center in [address] [phone] Jeanie Mcgill M.D. [address] [place] [phone] Anesthesia Record Procedure Summary Procedure Name Responsible Anesthesiologist Anesthesia Start Time Anesthesia Stop Time OPEN REDUCTION INTERNAL FIXATION Middle PHALANX 2nd toe (Left: Foot) Jeanie Mcgill M.D. 11/05/23 0831 11/05/23 0933 Events Date Time Event Comment 11/05/2023 0813 0831 An Start Machine/Equipme nt Checked Infection Precautions Followed Procedure/Site Verified NPO Status Verified Supine Standard ASA Monitors Applied 0841 Turnover to Proceduralist 0842 Proc Start 0929 An Tourn Deflated 0929 Proc Fin 0932 Turnover to ANE Staff 0932 an stop data 0933 An End I completed my handoff to the receiving staff during which we 1. Identified the patient 2. Identified the responsible provider 3. Reviewed the pertinent medical history 4. Discussed the surgical course 5. Reviewed intra-op anesthesia management and issues during anesthesia 6. Set expectations for post-procedure period 7. Allowed opportunity for questions and acknowledgement of understanding. Meds Name Total fentanyl injection 50 mcg/mL 50 mcg propofol 10 mg/mL injection 50 mg propofol 10 mg/mL infusion 334.64 mg ceFAZolin injection 2,000 mg (ANCEF) 2 g dexAMETHasone (DECADRON) injection 4 mg/ mL 4 mg ondansetron PF 4 mg/2 mL injection 4 mg lidocaine 2% (mg) injection 40 mg midazolam 1 mg/mL injection 1 mg phenylephrine 100 mcg/mL injection 50 mc g Lactated Ringer's 600 mL * Agents No agents on file. * Blood No blood administrations on file. Lines, Drains, and Airways Type Details Placement Removal Wound 11/05/23; 0845; N; Incision; Foot; Anterior, Left; adaptic, gauze, kerlix, hector, boot 11/05/23 0845 by Savanah Hayes, R.N. Peripheral IV Placement Date: 10/16 09/09; Placement Time: 08; Catheter Size: 20 G; Orientation: Right; Location: Hand; Site Prep: Chlorhexidine (Preferred); Technique: Anatomical landmarks; Insertion Attempts: 1; Removal Date: 11/05/23; Removal Time: 1021; Removal Reason: Patient discharged 11/05/23 0821 by Augustina Carrera, R.N. 11/05/23 1021 by Augustina Carrera, R.N. documented in this encounter Social History Tobacco Use Types Packs/Day Years [...] on file documented as of this encounter OR Notes * Anesthesia Postprocedure Evaluation - Jeanie Mcgill M.D. - 11/05/2023 10:32 AM CDT Patient: Kelly Mcgee Procedure Summary Date: 11/05/23 Room / Location: [place] [address] / [facility] Anesthesia Start: 830 Anesthesia Stop: 932 Procedures: OPEN REDUCTION INTERNAL FIXATION Middle PHALANX 2nd toe (Left: Foot) ARTHRODESIS proximal interphalangeal joint 2nd TOE (Left: Foot) Diagnosis: Hammer Toe Acquired Left Fracture Lesser Toe Middle Phalanx Displaced Closed Initial Left Arthritis Toe (Hammer Toe Acquired Left [M20.42]) (Fracture Lesser Toe Middle Phalanx Displaced Closed Initial Left [S92.522A]) (Arthritis Toe [M19.90]) Providers: Mercy Brown D.PBradley Responsible Provider: Jeanie Mcgill M.D. Anesthesia Type: MAC ASA Status: 2 Anesthesia Type: MAC Last vitals Vitals Value Taken Time BP 115/73 11/05/23 1015 Temp 35.6 ??C 11/05/23 0937 Pulse 79 11/05/23 1015 Resp 20 11/05/23 0937 SpO2 98 % 11/05/23 1015 Please reference Vitals flowsheet for most recent vital signs. Anesthesia Post Evaluation Patient Disposition: dismissal Cardiovascular status: hemodynamics (HR & BP) acceptable Respiratory status: patent airway with spontaneous effort Temperature: normothermic Oxygen requirements: room air Level of consciousness: awake Pain score: pain adequately controlled and/or at baseline Post Op nausea/vomiting: none Hydration status: euvolemic * Anesthesia Preprocedure Evaluation - Jeanie Mcgill M.D. - 11/05/2023 8:13 AM CDT Preprocedure Anesthesia & H&P Assessment Procedure Summary Date/Time: 11/05/23 1150 Procedures: OPEN REDUCTION INTERNAL FIXATION Middle PHALANX 2nd toe (Right) ARTHRODESIS proximal interphalangeal joint 2nd TOE (Right) Diagnosis: Hammer Toe Acquired Left [M20.42] Fracture Lesser Toe Middle Phalanx Displaced Closed Initial Left [S92.522A] Arthritis Toe [M19.90] Pre-op diagnosis: Hammer Toe Acquired Left [M20.42] Fracture Lesser Toe Middle Phalanx Displaced Closed Initial Left [S92.522A] Arthritis Toe [M19.90] Location: OR [facility] / [facility] Providers: Mercy Brown D.P.M. Pertinent components of the patient's history including current problem list, medical history, surgical history, family history, social history, medications and allergies were reviewed. Present illness and pre-op diagnosis were confirmed. The planned surgery / procedure was verified with the patient / legal guardian. 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 Hx of syncope in hospital postop TKA 2019 OBJECTIVE PHYSICAL EXAMINATION Airway (HEENT) Mallampati: I TM Distance: >3 FB Neck ROM: Full Mouth Opening: >3 cm Upper Lip Bite Test Class: II Cardiovascular Rhythm: Regular Rate: Normal Cardiovascular Assessment: cardiovascular normal Functional Capacity: >4 METS Pulmonary Pulmonary Assessment: Clear General / Constitutional Constitutional Assessment: Normal General State of Health:: healthy appearing and calm Neurological Neurologic Assessment: alert Dental Dental Assessment: dentition intact ASSESSMENT / PLAN ANESTHESIA PLAN ASA: 2 Anesthesia Plan: MAC Patient seen and allergies reviewed, anesthesia plan and risks discussed directly with patient /legal guardian or through an railroad track mechanic. The use of blood products not discussed Approval to Proceed: approved for anesthesia documented in this encounter Plan of Treatment Not on file documented as of this encounter Visit Diagnoses Not on filedocumented in this encounter Administered Medications Inactive Administered Medications - up to 3 most recent administrations Medication Order MAR Action Action Date Dose Rate Site ceFAZolin injection 2,000 mg (ANCEF) 2,000 mg (rounded from 2,407.5 mg = 25 mg/kg ? 96.3 kg), intravenous, Once, On Ada 11/05/23 at 0800, For 1 dose, Intra-Op, Administer within 1 hour prior to surgical incision If needed, reconstitute vial per package insert instructions. See IVAG for administration guidelines., Drug Monitoring Program: Pharmacist to adjust medication dosing based on indication and drug clearance factors., Indications: Prophylaxis, surgical Given 11/05/2023 8:39 AM CDT 2 g dexAMETHasone injection (DECADRON) intravenous, As needed, Starting on Ada 11/05/23 at 0839, Anesthesia Intra-op Given 11/05/2023 8:39 AM CDT 4 mg fentaNYL injection (SUBLIMAZE) intravenous, As needed, Starting on Ada 11/05/23 at 0832, Anesthesia Intra-op Given 11/05/2023 8:32 AM CDT 50 mcg Lactated Ringer's 20 mL/hr, intravenous, Continuous, Starting on Ada 11/05/23 at 0800, Pre-Op New Bag 11/05/2023 8:26 AM CDT lidocaine (PF) (cardiac) injection intravenous, As needed, Starting on Ada 11/05/23 at 0836, Anesthesia Intra-op Given 11/05/2023 8:36 AM CDT 40 mg midazolam (PF) injection (VERSED) intravenous, As needed, Starting on Ada 11/05/23 at 0832, Anesthesia Intra-op Given 11/05/2023 8:32 AM CDT 1 mg ondansetron (PF) injection (ZOFRAN) intravenous, As needed, Starting on Ada 11/05/23 at 0839, Anesthesia Intra-op Given 11/05/2023 8:39 AM CDT 4 mg phenylephrine injection intravenous, As needed, Starting on Ada 11/05/23 at 0900, Anesthesia Intra-op Given 11/05/2023 9:00 AM CDT 50 mcg propofol 10 mg/mL infusion (DIPRIVAN) intravenous, Continuous Infusion: Per Instructions PRN, Starting on Ada 11/05/23 at 0836, Anesthesia Intra-op Rate/Dose Change 11/05/2023 8:57 AM CDT 50 mcg/kg/min 28.89 mL/hr Rate/Dose Change 11/05/2023 8:48 AM CDT 75 mcg/kg/min 43.3 35 mL/hr New Bag 11/05/2023 8:36 AM CDT 100 mcg/kg/min 57.78 mL/ hr propofoL injection (DIPRIVAN) intravenous, As needed, Starting on Ada 11/05/23 at 0836, Anesthesia Intra-op Given 11/05/2023 8:36 AM CDT 50 mg documented in this encounter Care Teams Western Tack Assembly Line Worker Relationship Specialty Start Date End Date Elsewhere, Pcp PCP - General Internal Medicine 10/29/23 documented as of this encounter
--- OUTSIDE RECORDS SUMMARY | 2024-01-31 20:50 | XMS_ITS | Encounter Summary ---
Author Organization [facility] Address [address] [place] [address] Care Team Providers Care Dry Box Operator Name Role Phone Elsewhere, Pcp Primary Care Provider Unavailabl e Encounter Details Date Type Department Care Team (Late st Contact Info) Description 01/20/2024 Clinical Communication Primary Care on Demand at [facility] [address] [place] [phone] Aba Santos M.D. [address] [place] [phone] Social History Tobacco Use Types Packs/Day Years [...] on filedocumented in this encounter Care Teams Dry Box Operator Relationship Specialty Start Date End Date Elsewhere, Pcp PCP - General Internal Medicine 10/29/23 documented as of this encounter
--- OUTSIDE RECORDS SUMMARY | 2024-01-31 20:50 | XMS_ITS | Encounter Summary ---
Author Organization [facility] Address [address] [place] [address] Care Team Providers Care Printing Mechanist Name Role Phone Elsewhere, Pcp Primary Care Provider Unavailabl e Reason for Visit * Reason Comments Pre-op Exam Having surgery on le ft foot 2nd toe in [place] on 11/05/23 * Appointment Request (Routine) - Closed Specialty Diagnoses / Procedures Referred By Fawad t Referred To Contact Family Medicine Referral ID Status Reason Start Date Expiration Date Visits Re quested Visits Authorized [id number] Closed 10/27/2023 10/26/2024 1 1 Encounter Details Date Type Department Care Team (Late st Contact Info) Description 10/29/2023 12:00 PM CDT Office Visit Department of Family Medicine, [facility], in [address] [facility] [place] [phone] Jailene Connors APRN, C.N.P., D.N.P. [address] [phone] Preoperative Exam (Primary Dx); Chronic Kidney Disease (CKD), Stage 3a Glomerular Filtration Rate (GFR) 45 To 59 (HCC) Social History Tobacco Use Types Packs/Day Years [...] Sign Reading Time Taken Comments Blood Pressure 104/71 10/29/2023 12:04 PM CDT average of 3 Pulse 77 10/29/2023 12:04 PM CDT Temperature 35.8 ??C (96.5 ??F) 10/29/2023 1 2:04 PM CDT Respiratory Rate 16 10/29/2023 12:0 4 PM CDT Oxygen Saturation 99% 10/29/2023 12: 04 PM CDT Inhaled Oxygen Concentration - - Weight 96.2 kg (212 lb 3.1 oz) 10/29/19 12:04 PM CDT Height 173 cm (5' 8.11) 10/29/2023 12: 04 PM CDT Body Mass Index 32.16 10/29/2023 12:04 PM CDT documented in this encounter H&P Notes * Jailene Connors APRN, C.N.P., D.N.P. - 10/29/2023 12:00 PM CDT SUBJECTIVE PREOPERATIVE HISTORY AND PHYSICAL CHIEF COMPLAINT/REASON FOR VISIT Kelly Mcgee is a 58 y.o. female who presents for evaluation of Pre-op Exam (Having surgery on left foot 2nd toe in [place] on 11/05/23 ). HISTORY OF PRESENT ILLNESS Kelly is a pleasant 58-year-old female PMH fibromyalgia, hypothyroidism, chronic kidney disease stage 3, factor 2 deficiency, permanent right eye contact, presents for preoperative evaluation for left foot 2nd toe (history of hammertoe) surgery in [place] on 11/05/2023 with Mercy Brown D.PJennieM. -The proposed procedures described were 1) ORIF fracture middle phalanx 2nd toe 2) Fusion PIPJ 2nd toe left foot. Planned MAC anesthesia with local block. Kelly reports history of hypertrophic kidneys and a history of factor 2 mutation, which has not caused any problems in the past. She reports occasionally taking Lovenox injections but has not done so in recent months. She is currently on Lasix, Synthroid, Lyrica. The patient reports having an issues with anesthesia in the past specifically experiencing what shebelieves to be seizure after knee surgery approximately 5 years ago. 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 Patient has no other concerns or questions at this time. Current Outpatient Medications Medication Sig Dispense Refill albuterol 90 mcg/actuation inhaler Inhale 2 puffs every 4 (four) hours as needed. bisacodyL (DULCOLAX) 5 mg EC tablet Take 10 mg by mouth daily. buPROPion XL (WELLBUTRIN XL) 300 mg 24 hr tablet Take 300 mg by mouth every morning. cholecalciferol (VITAMIN D3) 125 mcg (5,000 Unit) capsule Take 5,000 Units by mouth daily. citalopram (CeleXA) 40 mg tablet Take 1 tablet by mouth at bedtime. clonazePAM (KlonoPIN) 1 mg tablet 1 MG ORALLY TWICE A DAY NEEDED FOR ANXIETY furosemide (LASIX) 40 mg tablet Take 1 tablet by mouth daily. levothyroxine (SYNTHROID, LEVOTHROID) 50 mcg tablet Take 1 tablet by mouth daily. pregabalin (LYRICA) 300 mg capsule Take 1 capsule by mouth 2 (two) times a day. traZODone (DESYREL) 100 mg tablet Take 150 mg by mouth at bedtime. amphetamine-dextroamphetamine (ADDERALL XR) 20 mg 24 hr capsule Take 20 mg by mouth. amphetamine-dextroamphetamine (ADDERALL XR) 20 mg 24 hr capsule Take 1 capsule by mouth every morning. buPROPion XL (WELLBUTRIN XL) 300 mg 24 hr tablet Take 1 tablet by mouth daily. citalopram (CeleXA) 40 mg tablet Take 40 mg by mouth daily. furosemide (LASIX) 40 mg tablet Take 40 mg by mouth daily. levothyroxine (SYNTHROID, LEVOTHROID) 50 mcg tablet Take 50 mcg by mouth. pregabalin (LYRICA) 300 mg capsule Take 300 mg by mouth. semaglutide (Wegovy) 0.25 mg/0.5 mL pen injector injection Inject 0.25 mg under the skin over 168 hr. semaglutide (Wegovy) 0.5 mg/0.5 mL pen injector injection Inject 0.5 mg under the skin over 168 hr. traZODone (DESYREL) 100 mg tablet Take 150 mg by mouth. No current facility-administered medications for this visit. Allergies Allergen Reactions Bee Venom Protein (Honey Bee) Other (see comments) Covid-19 Vacc,Mrna(Moderna)-Pf Myalgia SICK IN THE BED PAIN AND CHILLS X1 WEEK REVIEW OF SYSTEMS General: Denies recent fever, weight loss, or extreme fatigue. Eyes: Denies double vision or sudden loss of vision. ENT: Denies sore throat, runny nose, ear pain, or hearing loss. Heart: Denies chest pain or irregular heartbeats. Respiratory: Denies cough, wheezing, or shortness of breath. Digestion: Denies nausea, vomiting, diarrhea, or constipation. Genitourinary: Denies frequent or painful urination. Skin: Denies rash, sores, excessive bruising, or change of a mole. Nerves/Brain: Denies headache, persistent weakness, or numbness. Endocrine: Denies excessive thirst or urination, cold or heat intolerance. Blood: Denies unusual bruising or bleeding, or enlarged lymph nodes. AANA PREANESTHESIA QUESTIONS: -Have you recently had a cold or the flu? A month ago -Are you allergic to latex (rubber) products? no -Have you experienced chest pain? no -Do you have a heart condition? no -Do you have hypertension (high blood pressure)? No blood pressure today 107/71 -Do you experience shortness of breath? no -Do you have asthma, bronchitis, obstructive sleep apnea? no -Do you snore loudly or have any other breathing problems? no -Do you (or did you) smoke? No history of -Do you consume alcohol? Rare use -Do you take or have you taken recreational drugs? Smoke pot every now and then -Have you taken cortisone (steroids) in the last 6 months? no -Do you take any nonsteroidal or anti-inflammatory drugs (NSAIDS) such as aspirin, ibuprofen, naproxen? Rarely - Bleeding or clotting disorders: History of factor II. -Do you take herbal supplements, or complementary or alternative medicines? no -Do you have diabetes? no -Have you had hepatitis, liver disease, or jaundice? no -Do you have a thyroid condition? History of hypothyroidism, takes levothyroxine 50 mcg daily. -Do you have or have you ever had kidney disease? Chronic kidney disease stage 3 GFR 45-59 -Do you have ulcers or other stomach disorders? no -Do you have a hiatal hernia? no -Do you have back or neck pain? Low back pain history -Do you have numbness, weakness, or paralysis of your extremities? no -Do you have any muscle or nerve disease? no -Do you or any of your family have sickle cell trait? no -Have you or any blood relatives had difficulties with anesthesia? no -Do you have bleeding problems? History of factor II. -Do you have loose, chipped or false teeth, bridge work, or oral piercings (such as studs or rings)in your tongue or lip? no -Do you wear contact lenses? Permanent contact in right eye -Have you ever received a blood transfusion? no -Mallampati Class: I. -History of MRSA skin infections: no ASA PS CLASSIFICATION: II MEDICAL HISTORY Patient Active Problem List Diagnosis Hammer Toe Acquired Left Fracture Lesser Toe Middle Phalanx Displaced Closed Initial Left Arthritis Toe Hypothyroidism Chronic Kidney Disease (CKD), Stage 3a Glomerular Filtration Rate (GFR) 45 To 59 (HCC) No past surgical history on file. Social History Tobacco Use Smoking status: Never Smokeless tobacco: Never Substance Use Topics Alcohol use: Yes Comment: Twicer per year No family history on file. OBJECTIVE Vitals: 10/29/23 1204 BP: 104/71 BP Location: Left arm Patient Position: Sitting Cuff Size: Large Pulse: 77 Resp: 16 Temp: (!) 35.8 ??C TempSrc: Temporal SpO2: 99% Weight: 96.2 kg Height: 173 cm Body mass index is 32.16 kg/m??. PHYSICAL EXAMINATION Constitutional Appearance: Normal appearance. HENT Head: Normocephalic and atraumatic. Right Ear: Tympanic membrane normal. Left Ear: Tympanic membrane normal. Eyes General: Lids are normal. Comments: -permanent right eye contact Cardiovascular Rate and Rhythm: Normal rate and regular rhythm. Pulmonary Effort: Pulmonary effort is normal. Breath sounds: Normal breath sounds. Abdominal General: Bowel sounds are normal. Musculoskeletal Cervical back: Normal range of motion and neck supple. Skin General: Skin is warm and dry. Capillary Refill: Capillary refill takes less than 2 seconds. Neurological General: No focal deficit present. Mental Status: She is alert and oriented to person, place, and time. Psychiatric Mood and Affect: Mood normal. Behavior: Behavior normal. Stop Bang Total Score: 1 ASSESSMENT / PLAN #1 Preoperative exam #2 Chronic Kidney Disease (CKD), Stage 3a Glomerular Filtration Rate (GFR) 45 To 59 (HCC) -we will check BMP today -blood pressure today 104/71. - This patient is medically optimized for the above-mentioned procedure. - She is capable of achieving greater than 4 METS without cardiopulmonary symptoms. - Advised no aspirin-containing products 7 days prior to procedure. - patient was strongly encouraged to schedule an annual physical. Will check A1c, TSH and CBC per patient's request stay and she is advised to schedule a follow up appointment or an appointment for annual physical to discuss lab results. All questions answered and patient voiced understanding and agreement with the plan. Jailene Connors APRN, C.N.P., D.N.P. documented in this encounter Plan of Treatment Not on file documented as of this encounter Results * Thyroid Function [place] (10/29/2023 1:04 PM CDT) TSH, Sensitive 2.1 0.3 - 4.2 mIU/L 10/29/2023 6:29 PM CDT OWAT Blood (Blood, Venous) 10/29/2023 1:04 PM CDT 10/29/2023 5:47 PM CDT Jailene Connors APRN, C.N.P., D .N.P. LAB BLOOD ADD-ON [facility] [address] [place] [address], [facility] OWAT [facility] [place] [address] [place] [address] * CBC with Differential, Blood (10/29/2023 1:04 PM CDT) Hemoglobin 13.9 11.6 - 15.0 g/dL 10/29/2023 3:57 PM CDT FB60 Hematocrit 40.9 35.5 - 44.9 % 10/29/2023 3:57 PM CDT FB60 Erythrocytes 4.45 3.92 - 5.13 x10(12)/L 10/29/2023 3:57 PM CDT FB60 MCV 91.9 78.2 - 97.9 fL 10/29/2023 3:57 PM CDT FB60 RBC Distrib Width 13.5 12.2 - 16.1 % 10/29/2023 3:57 PM CDT FB60 Platelet Count 202 157 - 371 x10(9)/L 10/29/2023 3:57 PM CDT FB60 Leukocytes 4.9 3.4 - 9.6 x10(9)/L 10/29/2023 3:57 PM CDT FB60 Neutrophils 2.99 1.56 - 6.45 x10(9)/L 10/29/2023 3:57 PM CDT FB60 Lymphocytes 1.34 0.95 - 3.07 x10(9)/L 10/29/2023 3:57 PM CDT FB60 Monocytes 0.47 0.26 - 0.81 x10(9)/L 10/29/2023 3:57 PM CDT FB60 Eosinophils 0.11 0.03 - 0.48 x10(9)/L 10/29/2023 3:57 PM CDT FB60 Basophils <0.04 0.01 - 0.08 x10(9)/L 10/29/2023 3:57 PM CDT FB60 Blood (Blood, Venous) 10/29/2023 1:04 PM CDT 10/29/2023 1:48 PM CDT Stephen Givens APRN.N.P., D .N.P. LAB BLOOD ADD-ON [facility] [address] [place] [address], [facility] FB60 [facility] [place] [address] [place] [address] documented in this encounter Visit Diagnoses Diagnosis Preoperative Exam- Primary Chronic Kidney Disease (CKD), Stage 3a Glomerular Filtration Rate (GFR) 45 To 59 (HCC) documented in this encounter Care Teams Printing Mechanist Relationship Specialty Start Date End Date Elsewhere, Pcp PCP - General Internal Medicine 10/29/23 documented as of this encounter
--- OUTSIDE RECORDS SUMMARY | 2024-01-31 20:50 | XMS_ITS | Encounter Summary ---
Author Organization [facility] Address [address] [place] [address] Care Team Providers Care Agency Trainer Name Role Phone Elsewhere, Pcp Primary Care Provider Unavailabl e Encounter Details Date Type Department Care Team (Latest Contact Info) Description 10/29/2023 12:50 PM CDT - 10/29/2023 11:59 PM CDT Hospital Encounter Department of Laboratory Medicine in [place], [place] [address] [facility] [place] [phone] Mercy Najera D.PJennieMJennie [address] [place] [phone] Hammer Toe Acquired Left; Fracture Lesser Toe Middle Phalanx Displaced Closed Initial Left; Arthritis Toe; Preoperative Exam Discharge Disposition: Home or Self Care Social [...] on file documented as of this encounter Medications at Time of Discharge [...] 11/05/2023 11/08/2023 documented as of this encounter Plan of Treatment Not on file documented as of this encounter Procedures Procedure Name Priority Date/Time Associated Diagnosis Comments VITAMIN D, IMMUNOASSAY, TOTAL, S Routine 10/29/2023 1:04 PM CDT THYROID FUNCTION CASCADE, S Routine 10/29/2023 1:04 PM CDT Preoperative Exam CBC WITH DIFFERENTIAL, B Routine 10/29/2023 1:04 PM CDT Preoperative Exam BASIC METABOLIC PANEL, S/P Routine 10/29/2023 1:04 PM CDT Hammer Toe Acquired Left Fracture Lesser Toe Middle Phalanx Displaced Closed Initial Left Arthritis Toe documented in this encounter Results * Vitamin D, Immunoassay, Total, Serum (10/29/2023 1:04 PM CDT) Vitamin D, Immunoassay, Total, S 38 20 - 80 ng/mL 10/29/2023 7:53 PM CDT [facility] Comment: Optimum levels within the healthy population are 20-50, patients with bone disease may benefit from high levels within this range Blood 10/29/2023 1:04 PM CDT 10/29/2023 6:59 PM CDT Jailene Connors APRN, C.N.P., D .N.P. LAB BLOOD ADD-ON Performing Organization Address City/[facility]/ZIP Co de Phone Number [facility] [address] [place] [phone], [place] [facility] [address] [place] [phone] * Thyroid Function [place] (10/29/2023 1:04 PM CDT) Pathologist [facility] TSH, Sensitive 2.1 0.3 - 4.2 mIU/L 10/29/2023 6:29 PM CDT [facility] Blood (Blood, Venous) 10/29/2023 1:04 PM CDT 10/29/2023 5:47 PM CDT Jailene Connors APRN, C.N.P., D .N.P. LAB BLOOD ADD-ON [facility] [address] [place] [address], [place] OWAT [facility] [place] [address] [place] [address] * CBC with Differential, Blood (10/29/2023 1:04 [...] 1:04 PM CDT 10/29/2023 1:48 PM CDT Jailene Connors APRN, C.N.P., D .N.P. LAB BLOOD ADD-ON [facility] [address] [place] [address], [facility] FB60 [facility] in [place] [address] [place] [address] * (ABNORMAL) Basic Metabolic Panel (10/29/2023 1:04 [...] [facility] Brown D.P.M. LAB BL OOD ADD-ON [facility] [address] [place] [address], [place] OW[facility] [place] [address] [place] [address] documented in this encounter Visit Diagnoses Diagnosis Hammer Toe Acquired Left Fracture Lesser Toe Middle Phalanx Displaced Closed Initial Left Arthritis Toe Preoperative Exam documented in this encounter Care Teams Agency Trainer Relationship Specialty Start Date End Date Elsewhere, Pcp PCP - General Internal Medicine 10/29/23 documented as of this encounter
--- OUTSIDE RECORDS SUMMARY | 2024-01-31 20:50 | XMS_ITS | Encounter Summary ---
Author Organization [facility] Address [address] [place] [address] Care Team Providers Care Promotions Associate Name Role Phone Elsewhere, Pcp Primary Care Provider Unavailabl e Reason for Referral * Outpatient (Routine) - Closed Specialty Diagnoses / Procedures Referred By Fawad ruffin Referred To Contact Orthopedic Surgery [facility]cy Brown D.P.M. [address] [place] [address] Mercy Brown D.P.MJennie [address] [place] [phone] Referral ID Status Reason Start Date Expiration Date Visits Re quested Visits Authorized [id number] Closed 12/08/2023 06/08/2025 1 1 Scheduling Instructions Post op, Ingrsarath Toenail Encounter Details Date Type Department Care Team (Late st Contact Info) Description 12/08/2023 Orders Only Department of Orthopedic Surgery in [place], [place] [address] [place] [phone] Jeanie Pina, LJennieP.N. Social History Tobacco Use Types Packs/Day Years [...] as of this encounter Plan of Treatment Scheduled Referrals Name Type Priority Associated Diagnoses Order Schedule Orthopedic Surgery Post Op (clinic) Outpatient Referral Routine Expected: 01/12/2024 (Approximate), Expires: 03/08/2025 documented as of this encounter Visit Diagnoses Not on filedocumented in this encounter Care Teams Promotions Associate Relationship Specialty Start Date End Date Elsewhere, Pcp PCP - General Internal Medicine 10/29/23 documented as of this encounter
--- OUTSIDE RECORDS SUMMARY | 2024-01-31 20:50 | XMS_ITS | Encounter Summary ---
Author Organization [facility] Address [address] [place] [address] Care Team Providers Care Transactional Attorney Name Role Phone Elsewhere, Pcp Primary Care Provider Unavailabl e Reason for Referral * Outpatient (Routine) - Closed Specialty Diagnoses / Procedures Referred By Fawad ruffin Referred To Contact Orthopedic Surgery Mercy Brown D.PJennieMJennie [address] [place] [phone] [facility] Region Referral ID Status Reason Start Date Expiration Date Visits Re quested Visits Authorized [id number] Closed 11/18/2023 05/19/2025 1 1 Scheduling Instructions 11/23/23 at 0800 for 30 min post op Reason for Visit * Reason Comments Post-op Post op fusion left 2nd toe * Outpatient (Routine) - Closed Specialty Diagnoses / Procedures Referred By Fawad ruffin Referred To Contact Orthopedic Surgery Mercy Brown D.PJennieMJennie [address] [place] [phone] [facility] Region Referral ID Status Reason Start Date Expiration Date Visits Re quested Visits Authorized [id number] Closed 10/20/2023 04/20/2025 1 1 Encounter Details Date Type Department Care Team (Late st Contact Info) Description 11/18/2023 8:00 AM CDT Office Visit Department of Orthopedic Surgery in [address] [phone] [facility] D.P.M. [address] [facility] [place] [phone] Follow Up Surgery Exam (Primary Dx) Discharge [...] Progress Notes * Mercy Brown D.P.M. - 11/18/2023 8:00 AM CDT SUBJECTIVE No chief complaint on file. HISTORY OF PRESENT ILLNESS Kelly is post operative open reduction internal fixation of fracture to the middle phalanx and fusion of the proximal interphalangeal joint left 2nd toe. Date of surgery was November 05, 2023. Procedure was performed at [place], [place]. Surgical procedure(s) performed Mercy Ojeda D.P.M.. OBJECTIVE PHYSICAL EXAMINATION General Appearance: Patient is alert and orientated to time place and person. Surgical Site: Left 2nd toe. Neurovascular is intact. Edema to toe. No excess erythema Digital alignment is rectus. Incision healing well. No discharge or dehiscence. ASSESSMENT / PLAN 1. Follow Up Surgery Exam PLAN: Discussed with patient and postoperative findings reduction internal fixation of fracture to the middle phalanx and fusion of the proximal interphalangeal joint of the left 2nd toe. Edema is present to the 2nd toe. This may be related to her level of activity and wearing Crocs versus surgical shoe or Cam boot. Recommend using 1 inch Coban for control of inflammation. Surgical site appearsstable. Sutures are removed. Assessment for the patient will be ongoing. Kelly will follow with podiatry 10-14 days for x-ray evaluation. This plan of care has been discussed with patient and all questions answered. documented in this encounter Plan of Treatment Scheduled Referrals Name Type Priority Associated Diagnoses Order Schedule Orthopedic Surgery Post Op (clinic) Outpatient Referral Routine Expected: 11/23/2023, Expires: 02/16/2025 documented as of this encounter Visit Diagnoses Diagnosis Follow Up Surgery Exam- Primary documented in this encounter Care Teams Transactional Attorney Relationship Specialty Start Date End Date Elsewhere, Pcp PCP - General Internal Medicine 10/29/23 documented as of this encounter
--- OUTSIDE RECORDS SUMMARY | 2024-01-31 20:50 | XMS_ITS | Encounter Summary ---
Author Organization [facility] Address [address] [place] [address] Care Team Providers Care Anti Air Warfare Operations Officer Name Role Phone Elsewhere, Pcp Primary Care Provider Unavailabl e Reason for Referral * Outpatient (Routine) - Closed Specialty Diagnoses / Procedures Referred By Fawad ruffin Referred To Contact Diagnoses Follow Up Surgery Exam Fracture Lesser Toe Middle Phalanx Displaced Closed Initial Left Procedures DX Toes Left 3 Views [facility] Brown D.P.MJennie [address] [place] [phone] [facility] Region Referral ID Status Reason Start Date Expiration Date Visits Re quested Visits Authorized [id number] Closed 12/08/2023 12/07/2024 1 1 Reason for Visit * Outpatient (Routine) - Closed Specialty Diagnoses / Procedures Referred By Fawad ruffin Referred To Contact Diagnoses Follow Up Surgery Exam Fracture Lesser Toe Middle Phalanx Displaced Closed Initial Left Procedures DX Toes Left 3 Views Mercy Brown D.P.MJennie [address] [place] [phone] [facility] Region Referral ID Status Reason Start Date Expiration Date Visits Re quested Visits Authorized [id number] Closed 12/08/2023 12/07/2024 1 1 Encounter Details Date Type Department Care Team (Latest Contact Info) Description 12/08/2023 1:06 PM CDT - 12/08/2023 11:59 PM CDT Hospital Encounter Department of Radiology in [place], [place] [address] [place] [phone] Mercy Najera D.P.M. [address] [place] [phone] Follow Up Surgery Exam; Fracture Lesser Toe [...] every 4 (four) hours as needed. 04/09/2021 amphetamine-dextroampheta mine (ADDERALL XR) 20 mg 24 hr capsule Take 20 mg by mouth. 04/14/2022 amphetamine-dextroampheta mine (ADDERALL XR) 20 mg 24 hr capsule [...] 150 mg by mouth at bedtime. 10/21/2022 documented as of this encounter Plan of Treatment Not on file documented as of this encounter Procedures Procedure Name Priority Date/Time Associated Diagnosis Comments DX TOES LEFT 3 VIEWS RAD - Routine (most inpatients and all outpatients) 12/08/2023 1:27 PM CDT Follow Up Surgery Exam Fracture Lesser Toe Middle Phalanx Displaced Closed Initial Left documented in this encounter Results * DX Toes Left [...] DX TOES LEFT 3 VIEWS Procedure Note Benjamin Conner M.D. - 12/08/2023 EXAM: DX TOES LEFT 3 VIEWS IMPRESSION: Second proximal interphalangeal arthroplasty with plate and screw internalfixation, hardware components remain well seated and intact. Nodislocation. Negative for acute fracture. Comparison November 23, 2023. [facility] documented in this encounter Visit Diagnoses Diagnosis Follow Up Surgery Exam Fracture Lesser Toe Middle Phalanx Displaced Closed Initial Left documented in this encounter Care Teams Anti Air Warfare Operations Officer Relationship Specialty Start Date End Date Elsewhere, Pcp PCP - General Internal Medicine 10/29/23 documented as of this encounter
--- OUTSIDE RECORDS SUMMARY | 2024-01-31 20:50 | XMS_ITS | Encounter Summary ---
Author Organization [facility] Address [address] [place] [address] Care Team Providers Care Admissions Manager Rn Name Role Phone Elsewhere, Pcp Primary Care Provider Unavailabl e Reason for Referral * Outpatient (Routine) - Closed Specialty Diagnoses / Procedures Referred By Penelopeac t Referred To Contact Diagnoses Pain Foot Left Procedures FL Fluoro Less Than 1 Hour [facility] Brown D.PJennieMJennie [address] [place] [phone] [facility] Referral ID Status Reason Start Date Expiration Date Visits Re quested Visits Authorized [id number] Closed 11/05/2023 11/04/2024 1 1 Reason for Visit * Outpatient (Routine) - Closed Specialty Diagnoses / Procedures Referred By Fawad t Referred To Contact Diagnoses Pain Foot Left Procedures FL Fluoro Less Than 1 Hour Mer[facility] Brown D.P.MJennie [address] [place] [phone] [facility] Referral ID Status Reason Start Date Expiration Date Visits Re quested Visits Authorized [id number] Closed 11/05/2023 11/04/2024 1 1 Encounter Details Date Type Department Care Team (Latest Contact Info) Description 11/05/2023 7:27 AM CDT - 11/05/2023 7:35 AM CDT Hospital Encounter Department of Radiology in [address] [phone] Mercy Najera D.P.M. [address] [facility] [place] [phone] Pain Foot Left Discharge Disposition: Home or [...] Procedure Name Priority Date/Time Associated Diagnosis Comments FL FLUORO LESS THAN 1 HOUR RAD - Routine (most inpatients and all outpatients) 11/05/2023 9:41 AM CDT Pain Foot Left documented in this encounter Results * FL Fluoro Less Than 1 Hour (11/05/2023 9:41 AM CDT) Narrative 8000 LOS SEMN - 11/05/2023 9:44 AM CDT This exam does not require a radiologist review or interpretation. Please refer to the patient's medical record on this date for clinical details. [facility] PETER FL UOROSCOPY PROCEDURES 8000 LOS SEMN documented in this encounter Visit Diagnoses Diagnosis Pain Foot Left documented in this encounter Care Teams Admissions Manager Rn Relationship Specialty Start Date End Date Elsewhere, Pcp PCP - General Internal Medicine 10/29/23 documented as of this encounter
--- OUTSIDE RECORDS SUMMARY | 2024-01-31 20:50 | XMS_ITS | Encounter Summary ---
Author Organization [facility] Address [address] [place] [address] Care Team Providers Care Assistant Printer Floor Covering Name Role Phone Elsewhere, Pcp Primary Care Provider Unavailabl e Reason for Referral * Outpatient (Routine) - Closed Specialty Diagnoses / Procedures Referred By Fawad ruffin Referred To Contact Diagnoses Swelling Toe Procedures DX Toes Left 3 Views [facility] Brown D.PJennieMJennie [address] [place] [phone] [facility] Referral ID Status Reason Start Date Expiration Date Visits Re quested Visits Authorized [id number] Closed 12/28/2023 12/27/2024 1 1 Encounter Details Date Type Department Care Team (Late st Contact Info) Description 12/28/2023 Orders Only Department of Orthopedic Surgery in [place], [place] [address] [place] [phone] [facility] Brown D.PJennieMJennie [address] [place] [phone] Swelling Toe (Primary Dx) Social History Tobacco Use Types Packs/Day Years [...] Left 3 Views (01/04/2024 8:05 AM CDT) Anatomical Region Laterality Modality Lower Extremity, [...] milddegenerative change. Mild soft tissue swelling [facility] PETER DI AGNOSTIC IMAGING PROCEDURES documented in this encounter Visit Diagnoses Diagnosis Swelling Toe- Primary Swelling Toe documented in this encounter Care Teams Assistant Printer Floor Covering Relationship Specialty Start Date End Date Elsewhere, Pcp PCP - General Internal Medicine 10/29/23 documented as of this encounter
--- OUTSIDE RECORDS SUMMARY | 2024-01-31 20:50 | XMS_ITS | Encounter Summary ---
Author Organization [facility] Address [address] [place] [address] Care Team Providers Care Formulation Technician Name Role Phone Elsewhere, Pcp Primary Care Provider Unavailabl e Reason for Referral * Outpatient (Routine) - Closed Specialty Diagnoses / Procedures Referred By Contac t Referred To Contact Diagnoses Fracture Lesser Toe Middle Phalanx Displaced Closed Initial Left Procedures DX Toes Left 3 Views Mercy Brown D.PJennieM. [address] [place] [phone] [facility] Referral ID Status Reason Start Date Expiration Date Visits Re quested Visits Authorized [id number] Closed 11/23/2023 11/22/2024 1 1 Reason for Visit * Outpatient (Routine) - Closed Specialty Diagnoses / Procedures Referred By Contac t Referred To Contact Diagnoses Fracture Lesser Toe Middle Phalanx Displaced Closed Initial Left Procedures DX Toes Left 3 Views [facility]cy Brown D.P.M. [address] [place] [phone] [facility] Referral ID Status Reason Start Date Expiration Date Visits Re quested Visits Authorized [id number] Closed 11/23/2023 11/22/2024 1 1 Encounter Details Date Type Department Care Team (Latest Contact Info) Description 11/23/2023 8:24 AM CDT - 11/23/2023 11:59 PM CDT Hospital Encounter Department of Radiology in [place], [place] [address] [place] [phone] Mercy Najera D.P.M. [address] [place] [phone] Fracture Lesser Toe Middle Phalanx Displaced Closed [...] Results * DX Toes Left 3 Views (11/23/2023 8:40 AM CDT) Anatomical Region Laterality Modality Lower Extremity, Toes, Muscu loskeletal RST LOS, Musculoskeletal ARZ LOS, Muskuloskeletal FLA LOS Left Digit al Radiography Impressions 11/23/2023 8:48 AM CDT Open reduction internal fixation with fusion of the second toe PIP joint with plate and screw construct. Soft tissue swelling. Unchanged mild depression of the second metatarsal head. Narrative 11/23/2023 8:48 AM CDT EXAM: DX TOES LEFT 3 VIEWS Procedure Note Tung Foley M.D. - 11/23/2023 EXAM: DX TOES LEFT 3 VIEWS IMPRESSION: Open reduction internal fixation with fusion of the second toe PIP jointwith plate and screw construct. Soft tissue swelling. Unchanged milddepression of the second metatarsal head. [facility] DI AGNOSTIC IMAGING PROCEDURES documented in this encounter Visit Diagnoses Diagnosis Fracture Lesser Toe Middle Phalanx Displaced Closed Initial Left documented in this encounter Care Teams Formulation Technician Relationship Specialty Start Date End Date Elsewhere, Pcp PCP - General Internal Medicine 10/29/23 documented as of this encounter
--- OUTSIDE RECORDS SUMMARY | 2024-01-31 20:50 | XMS_ITS | Encounter Summary ---
Author Organization [facility] Address [address] [place] [address] Care Team Providers Care Global Position System Technician Name Role Phone Elsewhere, Pcp Primary Care Provider Unavailabl e Reason for Referral * Outpatient (Routine) - Closed Specialty Diagnoses / Procedures Referred By Contac t Referred To Contact Orthopedic Surgery [facility] Brown D.P.M. [address] [place] [address] [facility] Referral ID Status Reason Start Date Expiration Date Visits Re quested Visits Authorized [id number] Closed 11/23/2023 05/24/2025 1 1 Scheduling Instructions Post op * Outpatient (Routine) - Authorized Specialty Diagnoses / Procedures Referred By Contac t Referred To Contact Orthopedic Surgery Diagnoses Fracture Lesser Toe Middle Phalanx Displaced Closed Initial Left [facility] Brown D.P.M. [address] [place] [phone] [facility] Region Referral ID Status Reason Start Date Expiration Date V isits Requested Visits Authorized [id number] Authorized 11/23/2023 05/24/2025 1 1 * Outpatient (Routine) - Closed Specialty Diagnoses / Procedures Referred By Contac t Referred To Contact Diagnoses Fracture Lesser Toe Middle Phalanx Displaced Closed Initial Left Procedures DX Toes Left 3 Views Mercy Brown D.P.M. [address] [place] [phone] [facility] Region Referral ID Status Reason Start Date Expiration Date Visits Re quested Visits Authorized [id number] Closed 11/23/2023 11/22/2024 1 1 Reason for Visit * Reason Comments Post-op S/P ORIF middle phal anx and fusion of the proximal interphalangeal joint left 2nd toe (DOS:11/05/2023) * Outpatient (Routine) - Closed Specialty Diagnoses / Procedures Referred By Fawad ruffin Referred To Contact Orthopedic Surgery Mercy Brown D.P.M. [address] [place] [phone] [facility] Referral ID Status Reason Start Date Expiration Date Visits Re quested Visits Authorized [id number] Closed 11/18/2023 05/19/2025 1 1 Encounter Details Date Type Department Care Team (Late st Contact Info) Description 11/23/2023 8:00 AM CDT Office Visit Department of Orthopedic Surgery in [address] [phone] Mer[facility] Brown D.PJennieMJennie [address] [place] [phone] Fracture Lesser Toe Middle Phalanx Displaced [...] Progress Notes * Mercy Brown D.P.M. - 11/23/2023 8:00 AM CDT SUBJECTIVE Chief Complaint Patient presents [...] November 05, 2023. Procedure was performed at [place], [place]. Surgical procedure(s) performed [facility]cy Ojeda D.P.M.. She states she notes majority of the swelling is gone to her 2nd toe in the morning however by mid day or end of the day most of the swelling has returned. She does not have any excess pain. OBJECTIVE PHYSICAL EXAMINATION General Appearance: Patient is alert and orientated to time place and person. Surgical Site: Left 2nd toe. Neurovascular is intact. Edema to toe. No bruising or erythema. Digital alignment is rectus. Incision healing well. No discharge or dehiscence. ASSESSMENT / PLAN 1. Fracture Lesser Toe Middle Phalanx Displaced Closed Initial Left 2. Follow Up Surgery Exam PLAN: Discussed with patient postoperative findings reduction [...] be ongoing. Kelly will follow with podiatry 14 days for x-ray evaluation. This plan of care has been discussed with patient and all questions answered. documented in this encounter Plan of Treatment Scheduled Referrals Name Type Priority Associated Diagnoses Order Schedule Orthopedic Surgery office visit (clinic) Outpatient Referral Routine Fracture Lesser Toe Middle Phalanx Displaced Closed Initial Left Expected: 12/07/2023, Expires: 02/21/2025 Orthopedic Surgery office visit (clinic) Outpatient Referral Routine Expected: 12/08/2023, Expires: 02/21/2025 documented as of this encounter Results * [...] milddepression of the second metatarsal head. [facility] DIAZG DI AGNOSTIC IMAGING PROCEDURES documented in this encounter Visit Diagnoses Diagnosis Fracture Lesser Toe Middle Phalanx Displaced Closed Initial Left- Primary Follow Up Surgery Exam Fracture Lesser Toe Middle Phalanx Displaced Closed Initial Left documented in this encounter Care Teams Global Position System Technician Relationship Specialty Start Date End Date Elsewhere, Pcp PCP - General Internal Medicine 10/29/23 documented as of this encounter
--- OUTSIDE RECORDS SUMMARY | 2024-01-31 20:50 | XMS_ITS | Encounter Summary ---
Author Organization [facility] Address [address] [place] [address] Care Team Providers Care Front Clerk Name Role Phone Elsewhere, Pcp Primary Care Provider Unavailabl e Reason for Visit * Outpatient (Routine) - Closed Specialty Diagnoses / Procedures Referred By Fawad ruffin Referred To Contact Anesthesiology Diagnoses Hammer Toe Acquired Left Arthritis Toe [facility]cy Brown D.P.M. [address] [place] [address] [facility] Referral ID Status Reason Start Date Expiration Date Visits Re quested Visits Authorized [id number] Closed 10/20/2023 04/20/2025 1 1 Encounter Details Date Type Department Care Team (Latest Contact Info) Description 10/29/2023 2:15 PM CDT Virtual Visit Preoperative Evaluation Center in [place], [place] [address] [place] [phone] Mercy Najera D.P.MJennie [address] [place] [phone] Ángela Pimentel, R.NJennie [address] [place] [phone] Preanesthetic Medical Exam (Primary Dx); Hammer Toe Acquired Left; Arthritis Toe Discharge Disposition: Home or Self [...] as of this encounter Progress Notes * Ángela Pimentel, RJennieN. - 10/29/2023 2:15 PM CDT GRISELDA Nurse visit completed. Surgery Nurse Video Control Operator Skin Alert Assessment: Complete this section only if the patient is greater than or equal to 18 y/o BMI <19 or >50: No BMI 32.16 Documented risk factors that indicate higher risk for pressure ulcer? No Do you have impaired sensation? No Is patient chair-bound or unable to reposition themselves? No Anesthesia Risk Assessment: Do you have an implanted cardiac device? No Do you have difficulties lying flat? Yes Comment: shortness of breath, possibly due to phlegm collecting in the back of her throat Do you have any anabaptism or other objection to having a blood transfusion? Yes Teaching: Preoperative education was done with (x) patient () parent . It was confirmed the patient/family member had received the following preoperative education sheets: Checklist For Surgical Patients ([id number]),???Surgical Site Infections: Reducing Your Risk ([id number]), Speak Up: Antibiotics ([id number]), Acute Pain and the Healing Process ( [id number]) with the [facility] ([id number]), and ???Appointments RequiredBefore Your Surgery?? (no MC). These were reviewed in detail. (x) Preoperative medication education provided through Ask [place] Expert Patient is ready to learn, no apparent learning barriers were identified. Reviewed diagnosis and treatment plan; patient verbalized understanding through teach back. All questions were answered. Patient has contact information and understands the need to call with any questions or concerns. Post op appointments: 1st po with surgeon or physician assistant press operator: (x) made ()TBD documented in this encounter Plan of Treatment Not on file documented as of this encounter Visit Diagnoses Diagnosis Preanesthetic Medical Exam- Primary Hammer Toe Acquired Left Arthritis Toe documented in this encounter Care Teams Front Clerk Relationship Specialty Start Date End Date Elsewhere, Pcp PCP - General Internal Medicine 10/29/23 documented as of this encounter
--- OUTSIDE RECORDS SUMMARY | 2024-01-31 20:50 | XMS_ITS | Encounter Summary ---
Author Organization [facility] Address [address] [place] [address] Care Team Providers Care Fuel Cell Test Engineer Name Role Phone Elsewhere, Pcp Primary Care Provider Unavailabl e Encounter Details Date Type Department Care Team (Late st Contact Info) Description 11/05/2023 9:15 AM CDT Ancillary Procedure Department [...] Diagnosis Comments SURGERY IMAGE EXAM Routine 11/05/2023 9: 15 AM CDT documented in this encounter Results * Foot-Surgery Image Exam (11/05/2023 9:15 AM CDT) 11/05/2023 9:13 AM CDT Narrative IIMS - [...] on filedocumented in this encounter Care Teams Fuel Cell Test Engineer Relationship Specialty Start Date End Date Elsewhere, Pcp PCP - General Internal Medicine 10/29/23 documented as of this encounter
--- OUTSIDE RECORDS SUMMARY | 2024-01-31 20:50 | XMS_ITS | Encounter Summary ---
Author Organization [facility] Address [address] [place] [address] Care Team Providers Care All Purpose Clerk Name Role Phone Elsewhere, Pcp Primary Care Provider Unavailabl e Reason for Referral * Medication Prior Authorization - Closed Specialty Diagnoses / Procedures Referred By Fawad ruffin Referred To Contact [facility] Brown D.P.M. [address] [place] [address] Referral ID Status Reason Start Date Expiration Date Visits Re quested Visits Authorized [id number] Closed 1 1 Reason for Visit * Auth/Cert (Routine) Specialty Diagnoses / Procedures Referred By Fawad ruffin Referred To Contact Diagnoses Hammer Toe Acquired Left Fracture Lesser Toe Middle Phalanx Displaced Closed Initial Left Arthritis Toe Hammer Toe Acquired Left [M20.42] Fracture Lesser Toe Middle Phalanx Displaced Closed Initial Left [S92.522A] Arthritis Toe [M19.90] Procedures NM OPN TX PHALANX FX NM CORRECTION HAMMERTOE OPEN REDUCTION INTERNAL FIXATION Middle PHALANX 2nd toe ARTHRODESIS proximal interphalangeal joint 2nd TOE Referral ID Status Reason Start Date Expiration Date Visits Re quested Visits Authorized [id number] 1 1 Encounter Details Date Type Department Care Team (Latest Contact Info) Description 11/05/2023 7:36 AM CDT - 11/05/2023 10:50 AM CDT Hospital Encounter Outpatient Procedure Center in [address] [phone] Mercy Najera D.P.M. [address] [facility] [place] [phone] Fracture Lesser Toe Middle Phalanx Displaced Closed [...] Notes * Op Note - Mercy Brown D.PJennieMJennie - 11/05/2023 8:42 AM CDT Pre-op Diagnosis [...] None Operative Note Narrative Kelly presented to [facility] for outpatient surgery to her left foot. [...] phalanx was removed with sagittal saw for [id number] contact for fusion. Using a Synthes 2.0 [...] for discharge. She is scheduled to follow [facility] for postoperative care. Mercy Brown D.P.M. [...] Left Hammer Toe Acquired Left Arthritis Toe documented [...] Starting on Ada 11/05/23 at 0738, Pre-Op metoprolol tablet 12.5 mg (LOPRESSOR) 12.5 mg, [...] 0803 (Given - Provid er: Augustina Carrera R.N.) ceFAZolin injection 2,000 mg (ANCEF) (COMPLETED) 2,000 [...] surgical 0839 (Given - Provid er: Millicent Lopez APRN, ASHLEY, RACHELLE, R.N.) Lactated Ringer's (COMPLETED) 20 mL/hr, intravenous, [...] Bag - Prov ider: Millicent Lopez APRN, CRNA, RACHELLE, R.N.)0932 (Anesthesia Volume Adjustment - Provider: Millicent Lopez APRN, CRNA, RACHELLE, R.N.)1008 (Stopped - Provider: Ej ColemanNJennie) PRN Medication Order 11/03/2023 11/04/2023 11/05/2023 albuterol [...] 0845, Intra-Op 0845 (Given - Provid er: Fabian MckeonP.Amada) metoprolol tablet 12.5 mg (LOPRESSOR) 12.5 mg, [...] older documented in this encounter Care Teams All Purpose Clerk Relationship Specialty Start Date End Date Elsewhere, Pcp PCP - General Internal Medicine 10/29/23 documented as of this encounter
--- OUTSIDE RECORDS SUMMARY | 2024-01-31 20:50 | XMS_ITS | Encounter Summary ---
Author Organization [facility] Address [address] [place] [address] Care Team Providers Care Drafting Clerk Name Role Phone Elsewhere, Pcp Primary Care Provider Unavailabl e Reason for Referral * Outpatient (Routine) - Closed Specialty Diagnoses / Procedures Referred By Penelopeac t Referred To Contact Diagnoses Swelling Toe Procedures DX Toes Left 3 Views [facility] Brown D.P.M. [address] [place] [phone] [facility] Referral ID Status Reason Start Date Expiration Date Visits Re quested Visits Authorized [id number] Closed 12/28/2023 12/27/2024 1 1 Reason for Visit * Outpatient (Routine) - Closed Specialty Diagnoses / Procedures Referred By Fawad t Referred To Contact Diagnoses Swelling Toe Procedures DX Toes Left 3 Views Mercy Brown D.P.MJennie [address] [place] [phone] [facility] Referral ID Status Reason Start Date Expiration Date Visits Re quested Visits Authorized [id number] Closed 12/28/2023 12/27/2024 1 1 Encounter Details Date Type Department Care Team (Latest Contact Info) Description 01/04/2024 7:50 AM CDT - 01/04/2024 11:59 PM CDT Hospital Encounter Department of Radiology in [address] [phone] Mercy Najera D.P.M. [address] [place] [phone] Swelling Toe Discharge Disposition: Home or Self [...] outpatients) 01/04/2024 8:05 AM CDT Swelling Toe documented in this encounter Results * DX [...] in this encounter Visit Diagnoses Diagnosis Swelling Toe documented in this encounter Care Teams Drafting Clerk Relationship Specialty Start Date End Date Elsewhere, Pcp PCP - General Internal Medicine 10/29/23 documented as of this encounter
--- OUTSIDE RECORDS SUMMARY | 2024-01-31 20:50 | XMS_ITS | Encounter Summary ---
Author Organization [facility] Address [address] [place] [address] Care Team Providers Care Writer Editor Name Role Phone Elsewhere, Pcp Primary Care Provider Unavailabl e Reason for Visit * Reason Comments Follow-up Left 2nd Toe Fractur e Follow Up Follow-up Right 5th Toe, Ingro wn Toenail * Outpatient (Routine) - Closed Specialty Diagnoses / Procedures Referred By Fawad t Referred To Contact Orthopedic Surgery Mercy Brown D.PJennieM. [address] [place] [address] Mercy Brown D.PJennieMJennie [address] [place] [address] Referral ID Status Reason Start Date Expiration Date Visits Re quested Visits Authorized [id number] Closed 12/08/2023 06/08/2025 1 1 Encounter Details Date Type Department Care Team (Late st Contact Info) Description 01/04/2024 8:30 AM CDT Office Visit Department of Orthopedic Surgery in [place], [place] [address] [place] [address] Mercy Brown D.PJennieM. [address] [place] [address] Ingrown Nail (Primary Dx) Discharge Disposition: Home [...] Progress Notes * Mercy Brown D.P.M. - 01/04/2024 8:30 AM CDT SUBJECTIVE Chief Complaint Patient presents with Left Foot - Follow-up Left 2nd Toe Fracture Follow Up Right Foot - Follow-up Right 5th Toe, Ingrown Toenail HISTORY OF PRESENT ILLNESS Kelly presents today for: Ingrown nail to the right 5th toe and dystrophic nail growth to the right 2nd toe. She would like to have the ingrown nail removed in questions about removal of the dystrophic nails. She is also status post fixation of fracture and fusion to the left 2nd toe. She states she continues to wrap with Coban and notices some local edema. Denies any pain. She has returned to closed toedshoes without complication. CURRENT MEDICATIONS Current Outpatient Medications on File Prior to Visit Medication Sig Dispense Refill albuterol 90 mcg/actuation inhaler Inhale 2 puffs every 4 (four) hours as needed. amphetamine-dextroamphetamine (ADDERALL XR) 20 mg 24 hr capsule Take 20 mg by mouth. amphetamine-dextroamphetamine (ADDERALL XR) 20 mg 24 hr capsule Take 1 capsule by mouth every morning. bisacodyL (DULCOLAX) 5 mg EC tablet Take [...] Take 150 mg by mouth at bedtime. No current facility-administered medications on file prior to visit. PROBLEMS: Patient Active Problem List Diagnosis Hammer Toe Acquired Left Fracture Lesser Toe Middle Phalanx Displaced Closed Initial Left Arthritis Toe Hypothyroidism Chronic Kidney Disease (CKD), Stage 3a Glomerular Filtration Rate (GFR) 45 To 59 (HCC) ALLERGIES/CONTRAINDICATIONS Allergies Allergen Reactions Bee Venom Protein (Honey Bee) Other (see comments) Covid-19 Vacc,Mrna(Moderna)-Pf Myalgia SICK IN THE BED PAIN AND CHILLS X1 WEEK OBJECTIVE VITAL SIGNS There were no vitals taken for this visit. PHYSICAL EXAMINATION General Appearance: Kelly is well nourished, well groomed, cooperative, alert and is in no acute distress. Lower Extremity Physical Exam: Musculoskeletal: Edema left 2nd toe. No pain. Digital alignment is rectus. Motor strength normal and symmetric graded at 5/5. No gross deformities or dislocations. Rectus foot structure. Gait: normalgait for age. Neurological: Coordination within normal limits. Patient is able to follow tasks as directed. Dermatological: Lower extremity: Skin evaluation: Toenails: Nail spicule along the fibular nail border right 5th toe and dystrophic nail to the right 5th toe and 2nd toe. Vascular: intact ASSESSMENT / PLAN 1. Ingrown Nail PLAN: Delayed healing to ORIF and fusion right 2nd digit. Surgical site is stable. She denies any pain and has returned to closed shoes without complication. He currently is having trouble with dystrophic nail growth to the right 2nd and 5th toe. Recommend total nail plate matricectomy. Indications and description of the procedure or treatment have been discussed. Likely outcome as well as complications reviewed and all questions answered. Pause for the cause has been completed prior to total nail plate matricectomy. Patient was identified by both name and date of ; the correct site identified; markers where applicable; verbal authorization is obtained; verify of necessary supplies, equipment and diagnostics are available; time out is performed immediately prior to procedure. A digital block was preformed utilizing mixture of 0.5% Marcaine plain and 1.0% lidocaine plain. Hemostasis was obtained with a digital Tournicot at the base of the digit. Attention was drawn to right 2nd and 5th digit and the toenail was from the nail bed in total using a [place] elevator excised from distal to proximal in total utilizing a long curved Tootie hemostat. All fibrous andproud flesh was curetted. The site was flushed with sterile saline and inspected for any remaining nail plate or matrix. Application of phenol to the nail bed was followed by an alcohol flush. The digital Tournicot was released noting instant return of color to the toe. The toe was then wrapped with pressure to stop any additional bleeding. Topical Silvadene was applied to the surgical site and it was dressed with a sterile dressing. Home care instructions were discussed and a printed [facility] postoperative instructions provided. If she has any concern she understands she cansent photos through portal. She states she has photos from previous foot problems and would like tosend those for her medical history. documented in this encounter Plan of Treatment Not on file documented as of this encounter Visit Diagnoses Diagnosis Ingrown Nail- Primary documented in this encounter Care Teams Writer Editor Relationship Specialty Start Date End Date Elsewhere, Pcp PCP - General Internal Medicine 10/29/23 documented as of this encounter
--- OUTSIDE RECORDS SUMMARY | 2024-01-31 20:50 | XMS_ITS | Encounter Summary ---
Author Organization [facility] Address [address] [place] [address] Care Team Providers Care Oil Field Roustabout Name Role Phone Unavailable Primary Care Provider Unavailabl e Encounter Details Date Type Department Care Team (Late st Contact Info) Description 10/21/2023 Clinical Communication Department of Orthopedic Surgery in [address] [phone] Larissa Hall L.P.N. Social History Tobacco Use Types Packs/Day Years [...] on file documented as of this encounter Miscellaneous Notes * Telephone Encounter - Larissa Hall L.PJennieN. - 10/21/2023 9:28 AM SENIOR PROJECT ENGINEER ORIF left 2nd toe middle phalanx Scheduled on 11/05/23 to be performed by Dr. Brown BMI Readings from Last 1 Encounters: No data found for BMI If BMI 55-60, contact Anesthesia as needs to schedule visit for evaluation. If BMI greater than 60,consult with provider. OR PROJECT ENGINEER documented in this encounter Plan of Treatment Not on file documented as of this encounter Visit Diagnoses Not on filedocumented in this encounter
--- OUTSIDE RECORDS SUMMARY | 2024-01-31 20:50 | XMS_ITS | Encounter Summary ---
Author Organization [facility] Address [address] [place] [address] Care Team Providers Care Certified Professional Coder Name Role Phone Elsewhere, Pcp Primary Care Provider Unavailabl e Reason for Visit * Reason Onset Date Comments Nurse Assessment 12/24/2023 Post op questio n for podiatry Encounter Details Date Type Department Care Team (Latest Contact Info) Description 12/24/2023 Clinical Communication Department of Orthopedic Surgery in [place], [place] [address] [place] [phone] Mercy Hernández am, D.P.M. [address] [place] [phone] Nurse Assessment (Post op question for podiatry) Social History Tobacco Use Types Packs/Day Years [...] encounter Miscellaneous Notes * Telephone Encounter - Breana Fowler L.PJennieNJennie - 12/25/2023 8:10 AM CDT She is scheduled on 01-04-2024. * Telephone Encounter - Randi Aj R.N. - 12/24/2023 4:15 PM CDT Spoke with patient and let her know provider recommendation. She states she will be back the 15th and would like someone to call her to get this scheduled. I do not see an order yet. So I let her know we would be contacting her once the order was placed. * Telephone Encounter - Randi Aj R.N. - 12/24/2023 12:33 PM CDT Spoke with patient, PO ORIF middle phalanx 2nd toe. She states that her incision on her toe has 2 -3 pimple like with white head at proximal end of incision. She states she can see something that does not seem right like a fingertip size hard like bump underneath. She states that her toe has been red and swollen since surgery. She denies fever. She is out of state until the [place]th. I have asked her to send a picture. I gave her the information needed to set up a portal which she agrees to do. I let her know Dr. Kimble is not in office today, she is not concerned feels it canwait. She should send pictures and may possibly need to be seen out of state. Will wait for pictures then forward to provider for recommendation. documented in this encounter Plan of Treatment Not on file documented as of this encounter Visit Diagnoses Not on filedocumented in this encounter Care Teams Certified Professional Coder Relationship Specialty Start Date End Date Elsewhere, Pcp PCP - General Internal Medicine 10/29/23 documented as of this encounter
--- OUTSIDE RECORDS SUMMARY | 2024-01-31 20:50 | XMS_ITS | Encounter Summary ---
Author Organization [facility] Address [address] [place] [address] Care Team Providers Care Legal Instruments Examiner Name Role Phone Elsewhere, Pcp Primary Care Provider Unavailabl e Encounter Details Date Type Department Care Team (Late st Contact Info) Description 01/25/2024 Clinical Communication [facility] [address] [place] [address] Aba Santos M.D. [address] [place] [address] Social History Tobacco Use Types [...] on filedocumented in this encounter Care Teams Legal Instruments Examiner Relationship Specialty Start Date End Date Elsewhere, Pcp PCP - General Internal Medicine 10/29/23 documented as of this encounter
--- OUTSIDE RECORDS SUMMARY | 2024-01-31 20:51 | XMS_ITS | Clinical Summary ---
Author Organization [facility] Address [place], [place] [address] Care Team Providers Care Double End Tenoner Setter Name Role Phone Jack Zavala MD Primary Care Provider + Allergies Active Allergy Reactions Criticality Noted Date Comments Bee Venom Protein (Honey Bee) *Unknown 2018 Medications Medication Sig Dispensed Refills Start Date End Date Status bisacodyl (DULCOLAX, BISACODYL,) 5 mg delayed release tablet Take 10 mg by mouth once daily. Active cholecalciferol (DIALYVITE VITAMIN D) 5,000 unit [...] mg) by mouth every morning. 30 Capsule 04/14/2022 Active dextroamphetami ne-amphetamine (ADDERALL XR) 20 mg Extended-Releas e capsule Take 1 Capsule (20 mg) by mouth every morning. 30 Capsule 05/14/2022 Active dextroamphetami ne-amphetamine (ADDERALL XR) 20 mg Extended-Releas e capsule Take 1 Capsule (20 mg) by mouth every morning. 30 Capsule 05/14/2022 Active durable medical equipment (DME)Indication s:Neuroma of second interspace of left foot,Toe pain, left [id number] Squared Toed Post op shoe, Small 1 Each 12/19/2022 Active semaglutide (Wegovy) 0.25 mg/0.5 mL pen Inject 0.25 mg subcutaneously every week for 4 weeks; then increase to 0.5 mg dose. 2 mL 2 04/03/2023 Active semaglutide, weight loss, (Wegovy) 0.5 mg/0.5 mL pen Inject 0.5 mg subcutaneous once weekly. 2 mL 04/03/2023 Active pregabalin (LYRICA) 300 mg capsule Take 1 Capsule (300 mg) by mouth two times daily. 180 Capsule 1 10/12/2023 Active EPINEPHrine (EPIPEN) 0.3 mg/0.3 mL auto-injector Inject 0.3 mg intramuscular one time if needed as a single dose; may repeat once. 2 Each 2 11/12/2023 Active furosemide (LASIX) 40 mg tablet Take 1 Tablet (40 mg) by mouth once daily. 90 Tablet 1 11/22/2023 Active buPROPion (WELLBUTRIN XL) 300 mg Extended-Releas e tablet Take 1 Tablet (300 mg) by mouth once daily. 90 Tablet 1 01/04/2024 Active citalopram (CELEXA) 40 mg tablet Take 1 Tablet (40 mg) by mouth at bedtime. 90 Tablet 1 01/04/2024 Active dextroamphetami ne-amphetamine (ADDERALL XR) 20 mg Extended-Releas e capsule Take 1 Capsule (20 mg) by mouth once daily. 30 Capsule 01/04/2024 Active levothyroxine (SYNTHROID) 50 mcg tablet Take 1 Tablet (50 mcg) by mouth once daily. 90 Tablet 1 01/04/2024 Active traZODone (DESYREL) 100 mg tablet Take 1.5 Tablets (150 mg) by mouth at bedtime. 135 Tablet 1 01/04/2024 Active minocycline (MINOCIN) 100 mg capsuleIndicati ons:Acne vulgaris Take 1 Capsule (100 mg) by mouth 2 times daily. 180 Capsule 04/29/2022 3 Discontinu ed(*Patien t states no longer taking) levothyroxine (SYNTHROID) 50 mcg tablet Take 1 Tablet (50 mcg) by mouth once daily. 90 Tablet 2 05/27/2023 4 Discontinu ed(Reorder (E-cancel not sent)) citalopram (CELEXA) 40 mg tablet Take 1 Tablet (40 mg) by mouth at bedtime. 90 Tablet 1 09/11/2023 4 Discontinu ed(Reorder (E-cancel not sent)) buPROPion (WELLBUTRIN XL) 300 mg Extended-Releas e tablet Take 1 Tablet (300 mg) by mouth once daily. 90 Tablet 1 10/07/2023 4 Discontinu ed(Reorder (E-cancel not sent)) traZODone (DESYREL) 100 mg tablet Take 1.5 Tablets (150 mg) by mouth at bedtime. 135 Tablet 1 10/07/2023 4 Discontinu ed(Reorder (E-cancel not sent)) Active Problems Problem Noted Date Diagnosed Date [...] Dates Next Due COVID-19 vaccine (Moderna 100mcg/0.5mL) SHELDON RANDALL 02/07/2021,12/13/2020 Hepatitis B (Adult) 02/15/2004 Influenza, IIV3 [...] 01/08/2021, Additional history exists COVID-19 vaccine series () 04/17/2023 08/12/2021, 02/07/2021, 12/13/2020 Colonoscopy through age 75 07/14/2023 07/14/2018 Influenza for age 50-64 04/17/2024 06/26/20, 07/04/2019, 05/25/2018, Additional history exists Lipids for age 45-75 04/09/2026 04/09/2021, 06/22/20 Tetanus booster 09/21/2027 09/21/2017, 04/07/2008 Tdap Completed 09/21/2017, 04/07/2008 Hepatitis C screening for age 18-79 Completed 06/22/2018 Pneumococcal series for age 6-64 Aged Out No longer eligible based on patient's age to complete this topic Medical Devices Implanted Type Area Revenue Liaison Device Identifier Shelf Expiration Date Model / Serial / Lot Cmnt Bone 40gm Santiago Motta Ab - [id number] Implanted:Qty: 2 on 04/05/2019 by French Torres MD at [facility] Left: Knee [employer] 10/15/2023 [id number] / / [id number] 29mm Oval Michelle Ii Resurfacing Patellar Component Implanted:Qty: 1 on 04/05/2019 by French Torres MD at [facility] Left: Knee [employer] 12/06/2028 [id number] / / [id number] Size 6 Left Bi-Cruciate Stabilized Journey Ii Bcs Oxinoim Femoral Component Implanted:Qty: 1 on 04/05/2019 by French Torres MD at [facility] Left: Knee [employer] 12/09/2028 [id number] / / [id number] Size 4 Left Journey Nonporous Tibial Baseplate Implanted:Qty: 1 on 04/05/2019 by French Torres MD at [facility] Left: Knee [employer] 11/01/2028 [id number] / / [id number] Left, Size 3-4, 9mm Journey Ii Bcs Xl Pe A/P 48mm M/L 68 Mm Articular Insert Implanted:Qty: 1 on 04/05/2019 by French Torres MD at [facility] Left: Knee [employer] 01/20/2027 [id number] / / [id number] Procedures Procedure Name Priority Date/Time Associated Diagnosis Comments LIPID PANEL W REFLEX MEASURED LDL Routine 04/09/2021 12:10 PM CDT Lipid screening XR MAMMO MICK BILAT SCREEN Routine 09/07/2020 11:20 AM IT SOFTWARE ENGINEER Visit for screening mammogram COLONOSCOPY 07/14/2018 10:16 AM IT SOFTWARE ENGINEER ANTI HCV Routine 06/22/2018 10:24 AM IT SOFTWARE ENGINEER Need for hepatitis C screening test from Last 3 Months or Most Recently Relevant to Health Maintenance Results * (ABNORMAL) LIPID PANEL W REFLEX MEASURED LDL (04/09/2021 12:10 PM CDT) CHOLESTEROL,TOTAL 208(H) 100 - 199 mg/dL 04/09/2021 12:51 PM CDT [facility] TRIGLYCERIDES 144 <150 mg/dL 04/09/2021 12:51 PM CDT [facility] HDL CHOLESTEROL 66 >40 mg/dL 12:51 PM CDT [facility] NON-HDL CHOLESTEROL 142 <145 mg/dl 04/09/2021 12:51 PM CDT [facility] CHOL/HDL RATIO 3.15 <4.50 04/09/2021 12:51 PM CDT [facility] LDL CHOLESTEROL 113 <=130 mg/dL 04/09/2021 12:51 PM CDT [facility] VLDL CHOLESTEROL 29 mg/dL 04/09/20 12:51 PM CDT [facility] PROVIDER ORDERED STATUS RANDOM 04/09/2021 12:51 PM CDT [facility] Blood BLOOD SPECIMEN / Unknown Venipuncture / Unknown 04/09/2021 12:10 PM CDT 04/09/2021 12:12 PM CDT Rocael Conroy DO CHEMISTRY Performing Organization Address City/State/[facility] [place] [address] * XR MAMMO MICK BILAT SCREEN (09/07/2020 11:20 AM IT SOFTWARE ENGINEER) Anatomical Region Laterality Modality BREASTS, Breast Left, Breast Right Bilateral Mammography Impressions 09/10/2020 7:00 AM IT SOFTWARE ENGINEER ??There is no radiographic evidence for malignancy. ??Recommend annual mammograms. A lay language report of this examination will be provided to the patient. MAMMOGRAM ASSESSMENT: ??ACR 2 Benign Narrative 09/10/2020 7:00 AM IT SOFTWARE ENGINEER XR MAMMO MICK BILAT SCREEN [[id number]] CLINICAL HISTORY: ??This is an asymptomatic 54 y.o. patient. INDICATION FOR EXAM: Mammogram Screening. TECHNIQUE: CC & MLO views were obtained. ??This digital study was evaluated with the assistance of Computer-Aided Detection. Breast Tomosynthesis was used in interpretation. COMPARISON FILMS: Yes 08/24/18 [facility] ?? FINDINGS: ??The breasts are heterogeneously dense, which may obscure small masses. ??No suspicious masses or microcalcifications. ??Benign appearing calcifications within right breast and Post surgical changes within ??left breast. Ortiz GARCIA MAMMO * COLONOSCOPY (07/14/2018 10:16 AM IT SOFTWARE ENGINEER) 07/14/2018 10:1 6 AM IT SOFTWARE ENGINEER Narrative Transcriptions Tod Cantu MD - 07/14/2018 1:14 PM CST Patient Name: Kelly Mcgee Procedure Date: 07/14/2018 Gender: Female Date of : 1965 Admit Type: Ambulatory Procedure: Colonoscopy Proceduralist: Tod Cantu [facility] Indications/Pre-Op Diagnosis: High risk colon cancer surveillance:Personal history of colonic polyps Medications: Midazolam 4 mg IV, Fentanyl 100 microgramsIV Procedure Description: The patient had risks, benefits and alternatives explained to andgave informed consent. The patient had a stable cardiopulmonary status and judged an adequate candidate for conscious sedation. The colonoscope was passed through the anus and advanced to 4 cm into the ileum. The colonoscopy was performed without difficulty. Thepatient tolerated the procedure well. The quality of the bowel preparationwas good. The terminal ileum, ileocecal valve, appendiceal orifice, and rectum were photographed. Complications: No immediate complications. Estimated Blood Loss & Specimen: Estimated blood loss: none. Specimen collected - Yes and sent to Laboratory Findings: The perianal and digital rectal examinations were normal. A 7 mm polyp was found in the hepatic flexure. The polyp was sessile. The polyp was removed with a hot snare. Resection and retrieval were complete. A 5 mm polyp was found in the splenic flexure. The polyp was sessile. The polyp was removed with a hot snare. Resection and retrieval were complete. A 5 mm polyp was found in the proximal descending colon. The polypwas sessile. The polyp was removed with a hot snare. Resection andretrieval were complete. A 3 mm polyp was found in the rectum. The polyp was sessile. Thepolyp was removed with a hot snare. Resection and retrieval werecomplete. A few small-mouthed diverticula were found in the sigmoid colon. Retroflexion in the right colon was performed. The retroflexed view of the distal rectum and anal verge was normaland showed no anal or rectal abnormalities. The exam was otherwise without abnormality. Impressions/Post-Op Diagnosis: - One 7 mm polyp at the hepatic flexure, removed with a hot snare. Resected and retrieved. - One 5 mm polyp at the splenic flexure, removed with a hot snare. Resected and retrieved. - One 5 mm polyp in the proximal descending colon, removed with a hot snare. Resected and retrieved. - One 3 mm polyp in the rectum, removed with a hot snare. Resectedand retrieved. - Diverticulosis in the sigmoid colon. - The examination was otherwise normal. Recommendation: - Discharge patient to home. - Resume previous diet. - Continue present medications. - Await pathology results. - Repeat colonoscopy in 5 years for surveillance. Moderate Sedation: Moderate (conscious) sedation was administered by the endoscopy nurse and supervised by the endoscopist. The following parameters were monitored: oxygen saturation, heart rate, respiratory rate, adequacyof pulmonary ventilation and reponse to care. Please refer to the patient's medical record flowsheets for moderate sedation details. Moderate (conscious) sedation was administered by the endoscopy nurse and supervised by the endoscopist. The following parameters were monitored: oxygen saturation, heart rate, blood pressure, andresponse to care. Total physician intraservice time was 43 minutes. Tod Cantu, 07/14/2018 1:14:06 PM This report has been signed electronically. Note Initiated On: 07/14/2018 10:16 AM Tod Cantu MD PROCEDURE ORD * ANTI HCV [[id number]] (06/22/2018 10:24 AM IT SOFTWARE ENGINEER) HEPATITIS C ANTIBODY Non-React sage Non-React sage 06/22/2018 5:59 PM IT SOFTWARE ENGINEER [facility] Comment:Antibodies to HCV no t detected; does not exclude the possibility of exposure to HCV. Blood BLOOD SPECIMEN / Unknown Venipuncture / Unknown 06/22/2018 10:24 AM IT SOFTWARE ENGINEER 06/22/2018 10:30 AM IT SOFTWARE ENGINEER Khoa Abel MD SEND OUTS [facility] [address] [place] [address], from Last 3 Months or Most Recently Relevant to Health Maintenance Advance Directives * Full Code (Latest Code Status on File) Date Activated Date Inactivated Comments 04/07/2019 11:24 PM 04/09/2019 3:34 PM Question Answer Comments Code Status Discussion: Discussed * Full Code Date Activated Date Inactivated Comments 04/05/2019 6:12 AM 04/07/2019 10:02 PM Question Answer Comments Code Status Discussion: Discussed Care Teams Double End Tenoner Setter Relationship Specialty Start Date End Date Jack Zavala MD [address] [place] [address] PCP - General Family Practice 03/31/22
[2024-01-31 20:55] LABS: Lactate* 1.9 mmol/L (0.5-1.9)
[2024-01-31 20:56] LABS: Slide Review Reflex No
[2024-01-31 21:12] LABS: Chloride* 105 mmol/L (96-114); Potassium* 3.9 mmol/L (3.6-5.1); Sodium* 138 mmol/L (135-149)
[2024-01-31 21:14] LABS: Creatinine* 1.1 mg/dL (0.5-1.5); Est. Creatinine Clearance* 55.55; Estimated Glomerular Filt Rate 58 ml/min
[2024-01-31 21:15] LABS: Alanine Aminotransferase* 58 U/L (4-35); Alkaline Phosphatase* 172 U/L (40-150); Anion Gap 11 mEq/L (7-15); Aspartate Amino Transferase* 146 U/L (12-35); Bilirubin Direct* 0.9 mg/dL (0.0-0.5); Bilirubin Total* 1.6 mg/dL (0.1-1.5); Blood Urea Nitrogen* 28 mg/dL (7-30); Calcium* 9.7 mg/dL (8.4-10.6); Carbon Dioxide* 22 mmol/L (20-32); Glucose* 98 mg/dL (60-115); Lipase* 58 U/L (23-300)
[2024-01-31 21:16] LABS: Magnesium* 2.3 mg/dL (1.5-2.6)
[2024-01-31] MEDS: LACTATED RINGERS 1000 ML 1,000 ML IV (21:30)
[2024-01-31] MEDS: LORazepam 2 MG/ML inj 0.5 MG IVP (21:30)
[2024-01-31 21:37] LABS: Troponin I* 0.03 ng/mL (0.01-0.04)
--- NOTE | 2024-01-31 21:46 | CRLHL7_ITS ---
For Patients: As a result of the Century Cures Act, medical imaging exams and procedure reports are released immediately into your electronic medical record. You may view this report before your referring provider. If you have questions, please contact your health care provider. INDICATION: Low chest pain, upper abdominal pain, elevated transaminases, low chest upper abdominal pain and elevated transaminases TECHNIQUE: Ultrasound abdomen limited. Sonographic images of the right upper quadrant were obtained using dunn-scale and color Doppler images. COMPARISON: None FINDINGS: The sensitivity and specificity of the exam are moderately limited by the overlying bowel gas. Liver: The liver parenchyma is normal in echotexture. Gallbladder: There is an echogenic focus near the gallbladder which may represent a gallstone measuring 1.3 cm. The gallbladder wall is normal in appearance. No pericholecystic fluid is present. No sonographic So???s sign is present. Common bile duct: The common bile duct is at the upper limits or normal, measuring 6 mm. No intrahepatic biliary ductal dilatation seen. Pancreas: The visualized portions of the pancreatic head and body are normal in appearance. Right Kidney: 9.3 cm. No hydronephrosis or ureterectasis is seen. Vascular: The visualized abdominal aorta and IVC are unremarkable. IMPRESSION: 1. There is an echogenic focus near the gallbladder which may represent a gallstone measuring 1.3 cm. Visualization of the gallbladder is limited due to bowel gas. Dictated by Josh Gallardo MD @ 01/31/2024 11:22:51 PM Dictated by: Josh Gallardo MD @ 01/31/2024 23:22:53 (Electronically Signed)
[2024-01-31 22:56] LABS: Lab Add On Test New Spec Needed
[2024-01-31 23:30] LABS: Troponin, Point-of-Care* 0.01 ng/ml (0.01-0.04)
[2024-02-01] VITALS (7 sets, daily range): BP systolic 111–117; BP diastolic 71–72; PULSE 79–82; O2SAT 97–99
[2024-02-01] LABS: D Dimer Quantitative* 0.41 ug/ml (0.00-0.50)
== END 2024-02-01 01:26 | disposition home or self-care (01) ==
PROVIDERS: Emergency Provider Family Medicine; PCP Family Medicine
DX: R10.9 Unspecified abdominal pain (principal); F41.9 Anxiety disorder, unspecified; R07.9 Chest pain, unspecified
CPT/HCPCS: 36415; 76705; 80048; 80076; 83605; 83690; 83735; 84484; 85025; 85379; 96374; 96375; 99284; J1885; J2060; J2270; J2405; J7030; J7120

== ENCOUNTER 2024-02-09 16:31 | Outpatient (CLI) | payer BC, SELFPAY ==
--- OUTSIDE RECORDS SUMMARY | 2024-02-09 16:34 | XMS_ITS | Clinical Summary ---
Author Organization [facility] Address [address] [place] [address] Care Team Providers Care Car Varnisher Name Role Phone Elsewhere, Pcp Primary Care Provider Unavailabl e Source Comments Patient records contain information from all sites at [facility]. For routine questions regarding patient records, call [phone] during business hours, M-F 8:00 AM - 5:00 PM Central Time. Record requests for emergency care only can be directed to [phone] at any time.[facility] Allergies Active Allergy Reactions Criticality Noted [...] Clinical Communication [facility] at [address] [phone] Aba Santos M.D. 01/20/2024 Clinical Communication [facility] at [address] [phone] Aba Santos M.D. 01/04/2024 8:30 AM CDT Office Visit Department of Orthopedic Surgery in [address] [phone] Mercy Hernández am, D.PJennieMJennie Ingrown Nail (Primary Dx) Discharge Disposition: Home or Self Care 01/04/2024 7:50 AM CDT - 01/04/2024 11:59 PM CDT Hospital Encounter Department of Radiology in [address] [phone] Mercy Hernández am, D.PJennieMJennie Swelling Toe Discharge Disposition: Home or Self Care 12/28/2023 Orders Only Department of Orthopedic Surgery in [place] [phone] Mercy Hernández am, D.P.M. Swelling Toe (Primary Dx) 12/24/2023 Clinical Communication Department of Orthopedic Surgery in [address] [phone] Mercy Hernández am, D.P.M. Nurse Assessment (Post op question for podiatry) 12/08/2023 1:06 PM CDT - 12/08/2023 11:59 PM CDT Hospital Encounter Department of Radiology in [address] [phone] Mercy Hernández am, D.PBradley Follow Up Surgery Exam; Fracture Lesser Toe Middle Phalanx Displaced Closed Initial Left Discharge Disposition: Home or Self Care 12/08/2023 1:00 PM CDT Office Visit Department of Orthopedic Surgery in [address] [phone] Mercy Hernández am, D.PBradley Follow Up Surgery Exam (Primary Dx); Fracture Lesser Toe Middle Phalanx Displaced Closed Initial Left Discharge Disposition: Home or Self Care 12/08/2023 Orders Only Department of Orthopedic Surgery in [address] [phone] Jeanie Pina L.P.NJennie 11/23/2023 8:24 AM CDT - 11/23/2023 11:59 PM CDT Hospital Encounter Department of Radiology in [address] [phone] Mercy Hernández am, D.PBradley Fracture Lesser Toe Middle Phalanx Displaced Closed Initial Left Discharge Disposition: Home or Self Care 11/23/2023 8:00 AM CDT Office Visit Department of Orthopedic Surgery in [address] [phone] Mercy Hernández am, D.PBradley Fracture Lesser Toe Middle Phalanx Displaced Closed Initial Left (Primary Dx); Follow Up Surgery Exam Discharge Disposition: Home or Self Care 11/18/2023 8:00 AM CDT Office Visit Department of Orthopedic Surgery in [address] [phone] Mercy Hernández am, D.P.M. Follow Up Surgery Exam (Primary Dx) Discharge Disposition: Home or Self Care 11/11/2023 11:00 AM CDT Office Visit Department of Orthopedic Surgery in [address] [phone] Mercy Hernández am, D.P.M. Follow Up Surgery Exam (Primary Dx) Discharge Disposition: Home or Self Care from [...] Additional history exists Sodium Level 10/28/2024 10/29/2023, 0811/2020, 02/14/2020, Additional history exists Thyroid Stimulating Hormone [...] 06/02/2022, 06/26/2020 Medical Devices Implanted Type Area Seo Expert Device Identifier Shelf Expiration Date Model / Serial / Lot Scrw St Fthrd Nlck Sld 2.0x6 - [id number] Implanted:Qty: 2 on 11/05/2023 by Mercy Hogan D.P.MJennie at [facility] Hardware e.g. pins/screws/r ods Dep[employer]ynthes [id number] / / 09.20.24.[address] Fthrd Nlck Sld 2.0x7 - [id number] Implanted:Qty: 1 on 11/05/2023 by Mercy Hogan D.P.MJennie at [facility] Hardware e.g. pins/screws/r ods [employer] [id number] / / 09.20.24.0 19 Plt Hnd Lcd 4h Lck 2.4x24 - [id number] Implanted:Qty: 1 on 11/05/2023 by Mercy Hogan D.P.MJennie at [facility] Hardware e.g. pins/screws/r ods [employer] [id number] / / 09.20.24.0 19 Procedures Procedure Name Priority Date/Time Associated [...] Toe Middle Phalanx Displaced Closed Initial Left THYROID FUNCTION CASCADE, S Routine 10/29/2023 1:04 PM CDT Preoperative Exam BASIC METABOLIC PANEL, S/P Routine 10/29/2023 1:04 PM CDT Hammer Toe Acquired Left Fracture Lesser Toe Middle Phalanx Displaced Closed Initial Left Arthritis Toe EXTI LIPID PANEL W REFLEX MEASURED LDL Routine 04/09/2021 12:10 PM CDT BI BREAST SCREENING BILATERAL WITH TOMOSYNTHESIS Routine 09/07/2020 11:20 AM WAREHOUSE PACKER from Last 3 Months or Most Recently [...] D.P.M. IMG DI AGNOSTIC IMAGING PROCEDURES * Thyroid Function [place] (10/29/2023 1:04 PM CDT) TSH, Sensitive 2.1 0.3 - 4.2 mIU/L 10/29/2023 6:29 PM CDT [facility] Blood (Blood, Venous) 10/29/2023 1:04 PM CDT 10/29/2023 5:47 PM CDT Jailene Connors APRN, C.N.P., D .N.P. LAB BLOOD ADD-ON [facility] [address] [place] [address], [facility] [place] [address] [place] [address] * (ABNORMAL) Basic Metabolic Panel (10/29/2023 1:04 [...] 1:04 PM CDT 10/29/2023 5:48 PM CDT Mecry Brown D.P.M. LAB BL OOD ADD-ON [facility] [address] [place] [address], [place] [facility] [place] [address] [place] [address] from Last 3 Months or Most Recently Relevant to Health Maintenance Advance Directives For more information, please contact: [phone] * Full Code (Latest Code Status on File) Date Activated Date Inactivated Comments 11/05/2023 9:43 AM 11/05/2023 12:56 PM Question Answer Comments Full Code: Discussed * Full Code Date Activated Date Inactivated Comments 11/05/2023 7:38 AM 11/05/2023 9:43 AM Question Answer Comments Full Code: Discussed Care Teams Car Varnisher Relationship Specialty Start Date End Date Elsewhere, Pcp PCP - General Internal Medicine 10/29/23
--- OUTSIDE RECORDS SUMMARY | 2024-02-09 16:35 | XMS_ITS | Encounter Summary ---
Author Organization [facility] Address [address] [place] [address] Care Team Providers Care It Application Development Manager Name Role Phone Elsewhere, Pcp Primary Care Provider Unavailabl e Reason for Referral * Outpatient (Routine) - Closed Specialty Diagnoses / Procedures Referred By Penelopeac t Referred To Contact Diagnoses Swelling Toe Procedures DX Toes Left 3 Views Mercy Brown D.P.M. [address] [place] [phone] [facility] Referral ID Status Reason Start Date Expiration Date Visits Re quested Visits Authorized [id number] Closed 12/28/2023 12/27/2024 1 1 Reason for Visit * Outpatient (Routine) - Closed Specialty Diagnoses / Procedures Referred By Fawad t Referred To Contact Diagnoses Swelling Toe Procedures DX Toes Left 3 Views Mercy Brown D.P.MJennie [address] [place] [phone] [facility] Referral ID Status Reason Start Date Expiration Date Visits Re quested Visits Authorized [id number] Closed 12/28/2023 12/27/2024 1 1 Encounter Details Date Type Department Care Team (Latest Contact Info) Description 01/04/2024 7:50 AM CDT - 01/04/2024 11:59 PM CDT Hospital Encounter Department of Radiology in [address] [phone] Mercy Najera D.P.M. [address] [place] [phone] Swelling Toe Discharge Disposition: Home or Self [...] Toe documented in this encounter Care Teams It Application Development Manager Relationship Specialty Start Date End Date Elsewhere, Pcp PCP - General Internal Medicine 10/29/23 documented as of this encounter
--- OUTSIDE RECORDS SUMMARY | 2024-02-09 16:35 | XMS_ITS | Encounter Summary ---
Author Organization [facility] Address [address] [place] [address] Care Team Providers Care Picking Tech Name Role Phone Elsewhere, Pcp Primary Care Provider Unavailabl e Reason for Referral * Outpatient (Routine) - Closed Specialty Diagnoses / Procedures Referred By Fawad ruffin Referred To Contact Diagnoses Swelling Toe Procedures DX Toes Left 3 Views Mercy Brown D.PJennieMJennie [address] [place] [phone] [facility] Referral ID Status Reason Start Date Expiration Date Visits Re quested Visits Authorized [id number] Closed 12/28/2023 12/27/2024 1 1 Encounter Details Date Type Department Care Team (Late st Contact Info) Description 12/28/2023 Orders Only Department of Orthopedic Surgery in [place], [place] [address] [place] [phone] Mercy Brown D.PJennieMJennie [address] [place] [phone] Swelling Toe (Primary Dx) Social [...] Toe documented in this encounter Care Teams Picking Tech Relationship Specialty Start Date End Date Elsewhere, Pcp PCP - General Internal Medicine 10/29/23 documented as of this encounter
--- OUTSIDE RECORDS SUMMARY | 2024-02-09 16:35 | XMS_ITS | Referral Summary ---
Author Organization [facility] Address [address] [place] [address] Care Team Providers Care Hair Colorist Name Role Phone Elsewhere, Pcp Primary Care Provider Unavailabl e Source Comments Patient records contain information from all sites at [facility]. For routine questions regarding patient records, call [phone] during business hours, M-F 8:00 AM - 5:00 PM Central Time. Record requests for emergency care only can be directed to [phone] at any time.[facility] Encounters Date Type Department Care Team Description 01/25/2024 Clinical Communication Primary Care on Demand at [address] [phone] Aba Santos M.D. 01/20/2024 Clinical Communication Primary Care on Demand at [address] [phone] Aba Santos M.D. 01/04/2024 7:50 AM CDT - 01/04/2024 11:59 PM CDT Hospital Encounter Department of Radiology in [address] [phone] Mercy Hernández am, D.PBradley Swelling Toe Discharge Disposition: Home or Self Care 01/04/2024 8:30 AM CDT Office Visit Department of Orthopedic Surgery in [address] [phone] Mercy Hernández am, D.PJennieMJennie Ingrown Nail (Primary Dx) Discharge Disposition: Home or Self Care 12/28/2023 Orders Only Department of Orthopedic Surgery in [address] [phone] Mercy Hernández am, D.P.M. Swelling Toe (Primary Dx) 12/24/2023 Clinical Communication Department of Orthopedic Surgery in [address] [phone] Mercy Hernández am, D.P.M. Nurse Assessment (Post op question for podiatry) 12/08/2023 Orders Only Department of Orthopedic Surgery in [address] [phone] Jeanie Pina L.P.N. 12/08/2023 1:06 PM CDT - 12/08/2023 11:59 PM CDT Hospital Encounter Department of Radiology in [address] [phone] Mercy Hernández am, D.P.MJennie Follow Up Surgery Exam; Fracture Lesser Toe Middle Phalanx Displaced Closed Initial Left Discharge Disposition: Home or Self Care 12/08/2023 1:00 PM CDT Office Visit Department of Orthopedic Surgery in [address] [phone] Mercy Hernández am, D.PJennieMJennie Follow Up Surgery Exam (Primary Dx); Fracture Lesser Toe Middle Phalanx Displaced Closed Initial Left Discharge Disposition: Home or Self Care 11/23/2023 8:24 AM CDT - 11/23/2023 11:59 PM CDT Hospital Encounter Department of Radiology in [address] [phone] Mercy Hernández am, D.PBradley Fracture Lesser Toe Middle Phalanx Displaced Closed Initial Left Discharge Disposition: Home or Self Care 11/23/2023 8:00 AM CDT Office Visit Department of Orthopedic Surgery in [address] [phone] Mercy Hernández am, D.PBradley Fracture Lesser Toe Middle Phalanx Displaced Closed Initial Left (Primary Dx); Follow Up Surgery Exam Discharge Disposition: Home or Self Care 11/18/2023 8:00 AM CDT Office Visit Department of Orthopedic Surgery in [address] [phone] Mercy Hernández am, D.PBradley Follow Up Surgery Exam (Primary Dx) Discharge Disposition: Home or Self Care 11/11/2023 11:00 AM CDT Office Visit Department of Orthopedic Surgery in [address] [phone] Mercy Hernández am, D.PBradley Follow Up Surgery [...] on file Medical Devices Implanted Type Area Dock Grader Device Identifier Shelf Expiration Date Model / Serial / Lot Scrw St Fthrd Nlck Sld 2.0x6 - [id number] Implanted:Qty: 2 on 11/05/2023 by Mercy Hogan D.P.MJennie at [facility] Hardware e.g. pins/screws/r ods Depuy Synthes [id number] / / 24.[address] Fthrd Nlck Sld 2.0x7 - [id number] Implanted:Qty: 1 on 11/05/2023 by Mercy Hogan D.P.MJennie at [facility] Hardware e.g. pins/screws/r ods Depuy Synthes [id number] / / 24.0 19 Plt Hnd Lcd 4h Lck 2.4x24 - [id number] Implanted:Qty: 1 on 11/05/2023 by Mercy Hogan D.P.MJennie at [facility] Hardware e.g. pins/screws/r ods Depuy Synthes 449.931 / / [id number] 19 Procedures Procedure Name Priority Date/Time Associated [...] BILATERAL WITH TOMOSYNTHESIS Routine 09/07/2020 11:20 AM SAW[facility]LL HAND from Last 3 Months or Most Recently [...] Mild soft tissue swelling Mercy Brown D.P.M. IMVicky DI AGNOSTIC IMAGING PROCEDURES * Thyroid Function [place] (10/29/2023 1:04 PM CDT) TSH, Sensitive 2.1 0.3 - 4.2 mIU/L 10/29/2023 6:29 PM CDT OWAT Blood (Blood, Venous) 10/29/2023 1:04 PM CDT 10/29/2023 5:47 PM CDT Jailene Connors APRN, C.N.P., D .N.P. LAB BLOOD ADD-ON [facility] [address], [place] [address], [facility] OWAT [facility] in [place] [address], [place] [address] * (ABNORMAL) Basic Metabolic Panel (10/29/2023 1:04 [...] Mercy Brown D.P.M. LAB BL OOD ADD-ON [facility] [address] [place] [address], [facility] OWAT [facility] in [place] [address] [place] [address] from Last 3 Months or Most Recently Relevant to Health Maintenance Advance Directives For more information, please contact: [phone] * Full Code (Latest Code Status on File) Date Activated Date Inactivated Comments 11/05/2023 9:43 AM 11/05/2023 12:56 PM Question Answer Comments Full Code: Discussed * Full Code Date Activated Date Inactivated Comments 11/05/2023 7:38 AM 11/05/2023 9:43 AM Question Answer Comments Full Code: Discussed Care Teams Hair Colorist Relationship Specialty Start Date End Date Elsewhere, Pcp PCP - General Internal Medicine 10/29/23
--- OUTSIDE RECORDS SUMMARY | 2024-02-09 16:35 | XMS_ITS | Encounter Summary ---
Author Organization [facility] Address [address] [place] [address] Care Team Providers Care Mapping Analyst Name Role Phone Elsewhere, Pcp Primary Care Provider Unavailabl e Reason for Referral * Outpatient (Routine) - Closed Specialty Diagnoses / Procedures Referred By Contac t Referred To Contact Orthopedic Surgery Mercy Brown D.P.M. [address] [place] [phone] [facility] Referral ID Status Reason Start Date Expiration Date Visits Re quested Visits Authorized [id number] Closed 11/23/2023 05/24/2025 1 1 Scheduling Instructions Post op * Outpatient (Routine) - Authorized Specialty Diagnoses / Procedures Referred By Contac t Referred To Contact Orthopedic Surgery Diagnoses Fracture Lesser Toe Middle Phalanx Displaced Closed Initial Left Mercy Brown D.P.M. [address] [place] [phone] [facility] Region Referral ID Status Reason Start Date Expiration Date V isits Requested Visits Authorized [id number] Authorized 11/23/2023 05/24/2025 1 1 * Outpatient (Routine) - Closed Specialty Diagnoses / Procedures Referred By Contac t Referred To Contact Diagnoses Fracture Lesser Toe Middle Phalanx Displaced Closed Initial Left Procedures DX Toes Left 3 Views Mercy Brown D.P.M. [address] [place] [phone] [facility] Region Referral ID Status Reason Start Date Expiration Date Visits Re quested Visits Authorized [id number] Closed 11/23/2023 11/22/2024 1 1 Reason for Visit * Reason Comments Post-op S/P ORIF middle phal anx and fusion of the proximal interphalangeal joint left 2nd toe (DOS:11/05/2023) * Outpatient (Routine) - Closed Specialty Diagnoses / Procedures Referred By Fawad ruffin Referred To Contact Orthopedic Surgery Mercy Brown D.P.M. [address] [place] [phone] [facility] Referral ID Status Reason Start Date Expiration Date Visits Re quested Visits Authorized [id number] Closed 11/18/2023 05/19/2025 1 1 Encounter Details Date Type Department Care Team (Late st Contact Info) Description 11/23/2023 8:00 AM CDT Office Visit Department of Orthopedic Surgery in [address] [phone] Mercy Brown D.PJennieMJennie [address] [place] [phone] Fracture Lesser Toe Middle Phalanx Displaced [...] November 05, 2023. Procedure was performed at [place], [place]. Surgical procedure(s) performed Mercy Ojeda D.P.M.. [...] Left documented in this encounter Care Teams Mapping Analyst Relationship Specialty Start Date End Date Elsewhere, Pcp PCP - General Internal Medicine 10/29/23 documented as of this encounter
--- OUTSIDE RECORDS SUMMARY | 2024-02-09 16:35 | XMS_ITS | Encounter Summary ---
Author Organization [facility] Address [address] [place] [address] Care Team Providers Care Paraprofessional Interpreter Name Role Phone Elsewhere, Pcp Primary Care Provider Unavailabl e Reason for Referral * Medication Prior Authorization - Closed Specialty Diagnoses / Procedures Referred By Fawad ruffin Referred To Contact Mercy Brown D.P.M. [address] [place] [address] Referral ID Status Reason Start Date Expiration Date Visits Re quested Visits Authorized [id number] Closed 1 1 Reason for Visit * Auth/Cert (Routine) Specialty Diagnoses / Procedures Referred By Fawad ruffin Referred To Contact Diagnoses Hammer Toe Acquired Left Fracture Lesser Toe Middle Phalanx Displaced Closed Initial Left Arthritis Toe Hammer Toe Acquired Left [M20.42] Fracture Lesser Toe Middle Phalanx Displaced Closed Initial Left [S92.522A] Arthritis Toe [M19.90] Procedures CA OPN TX PHALANX FX CA CORRECTION HAMMERTOE OPEN REDUCTION INTERNAL FIXATION Middle PHALANX 2nd toe ARTHRODESIS proximal interphalangeal joint 2nd TOE Referral ID Status Reason Start Date Expiration Date Visits Re quested Visits Authorized [id number] 1 1 Encounter Details Date Type Department Care Team (Latest Contact Info) Description 11/05/2023 7:36 AM CDT - 11/05/2023 10:50 AM CDT Hospital Encounter Outpatient Procedure Center in [address] [phone] Mercy Najera D.P.M. [address] [facility] FAVIOLA Piper [phone] Fracture Lesser Toe Middle Phalanx Displaced Closed [...] None Operative Note Narrative Kelly presented to [facility] for outpatient surgery to her left [...] phalanx was removed with sagittal saw for [id number]-cp-[id number] contact for fusion. Using a Synthes 2.0 [...] for discharge. She is scheduled to follow [facility] for postoperative care. Mercy Brown D.P.M. [...] older documented in this encounter Care Teams Paraprofessional Interpreter Relationship Specialty Start Date End Date Elsewhere, Pcp PCP - General Internal Medicine 10/29/23 documented as of this encounter
--- OUTSIDE RECORDS SUMMARY | 2024-02-09 16:35 | XMS_ITS | Encounter Summary ---
Author Organization [facility] Address [address] [place] [address] Care Team Providers Care Cardiology Nurse Practitioner Name Role Phone Elsewhere, Pcp Primary Care Provider Unavailabl e Reason for Visit * Reason Comments Post-op 1st Post op open red uction internal fixation left foot * Outpatient (Routine) - Closed Specialty Diagnoses / Procedures Referred By Fawad ruffin Referred To Contact Orthopedic Surgery Mercy Brown D.PJennieMJennie [address] [place] [phone] [facility] Referral ID Status Reason Start Date Expiration Date Visits Re quested Visits Authorized [id number] Closed 10/20/2023 04/20/2025 1 1 Encounter Details Date Type Department Care Team (Late st Contact Info) Description 11/11/2023 11:00 AM CDT Office Visit Department of Orthopedic Surgery in [place], [place] [address] [place] [phone] Mercy Brown D.PJennieMJennie [address] [place] [phone] Follow Up Surgery Exam (Primary [...] November 05, 2023. Procedure was performed at [place], [place]. Surgical procedure(s) performed Mercy Ojeda [...] Primary documented in this encounter Care Teams Cardiology Nurse Practitioner Relationship Specialty Start Date End Date Elsewhere, Pcp PCP - General Internal Medicine 10/29/23 documented as of this encounter
--- OUTSIDE RECORDS SUMMARY | 2024-02-09 16:35 | XMS_ITS | Encounter Summary ---
Author Organization [facility] Address [address] [place] [address] Care Team Providers Care Orthopedic Radiologic Technologist Name Role Phone Elsewhere, Pcp Primary Care Provider Unavailabl e Reason for Referral * Outpatient (Routine) - Closed Specialty Diagnoses / Procedures Referred By Fawad ruffin Referred To Contact Diagnoses Follow Up Surgery Exam Fracture Lesser Toe Middle Phalanx Displaced Closed Initial Left Procedures DX Toes Left 3 Views Mercy Brown D.P.MJennie [address] [place] [address] [facility] Region Referral ID Status Reason Start Date Expiration Date Visits Re quested Visits Authorized [id number] Closed 12/08/2023 12/07/2024 1 1 Reason for Visit * Outpatient (Routine) - Closed Specialty Diagnoses / Procedures Referred By Fawad ruffin Referred To Contact Diagnoses Follow Up Surgery Exam Fracture Lesser Toe Middle Phalanx Displaced Closed Initial Left Procedures DX Toes Left 3 Views Mercy Brown D.P.MJennie [address] [place] [address] [facility] Region Referral ID Status Reason Start Date Expiration Date Visits Re quested Visits Authorized [id number] Closed 12/08/2023 12/07/2024 1 1 Encounter Details Date Type Department Care Team (Latest Contact Info) Description 12/08/2023 1:06 PM CDT - 12/08/2023 11:59 PM CDT Hospital Encounter Department of Radiology in [place], [place] [address] [place] [phone] Mercy Najera D.P.M. [address] [place] [phone] Follow Up Surgery Exam; Fracture Lesser Toe [...] Left documented in this encounter Care Teams Orthopedic Radiologic Technologist Relationship Specialty Start Date End Date Elsewhere, Pcp PCP - General Internal Medicine 10/29/23 documented as of this encounter
--- OUTSIDE RECORDS SUMMARY | 2024-02-09 16:35 | XMS_ITS | Encounter Summary ---
Author Organization [facility] Address [address] [place] [address] Care Team Providers Care Wardrobe Image Consultant Name Role Phone Elsewhere, Pcp Primary Care [...] on filedocumented in this encounter Care Teams Wardrobe Image Consultant Relationship Specialty Start Date End Date Elsewhere, Pcp PCP - General Internal Medicine 10/29/23 documented as of this encounter
--- OUTSIDE RECORDS SUMMARY | 2024-02-09 16:35 | XMS_ITS | Encounter Summary ---
Author Organization [facility] Address [address] [place] [address] Care Team Providers Care Take Out Waiter/Waitress Name Role Phone Elsewhere, Pcp Primary Care Provider Unavailabl e Reason for Referral * Outpatient (Routine) - Closed Specialty Diagnoses / Procedures Referred By Fawad ruffin Referred To Contact Diagnoses Follow Up Surgery Exam Fracture Lesser Toe Middle Phalanx Displaced Closed Initial Left Procedures DX Toes Left 3 Views Mercy Brown D.PJennieMJennie [address] [place] [address] [facility] Region Referral ID Status Reason Start Date Expiration Date Visits Re quested Visits Authorized [id number] Closed 12/08/2023 12/07/2024 1 1 Reason for Visit * Reason Comments Post-op S/P ORIF middle phal anx and fusion of the proximal interphalangeal joint left 2nd toe (DOS:11/05/2023) * Outpatient (Routine) - Closed Specialty Diagnoses / Procedures Referred By Fawad ruffin Referred To Contact Orthopedic Surgery Mercy Brown D.PJennieMJennie [address] [place] [address] [facility] Referral ID Status Reason Start Date Expiration Date Visits Re quested Visits Authorized [id number] Closed 11/23/2023 05/24/2025 1 1 Encounter Details Date Type Department Care Team ([facility] st Contact Info) Description 12/08/2023 1:00 PM CDT Office Visit Department of Orthopedic Surgery in [place], [place] [address] [place] [phone] Mercy Brown D.P.M. [address] [place] [phone] Follow Up Surgery Exam (Primary Dx); Fracture [...] November 05, 2023. Procedure was performed at [place], [place]. Surgical procedure(s) performed Mercy Ojeda D.P.M.. [...] for acute fracture. Comparison November 23, 2023. Meryc Brown D.P.M. IMG DI AGNOSTIC IMAGING PROCEDURES documented in this encounter Visit Diagnoses Diagnosis Follow Up Surgery Exam- Primary Fracture Lesser Toe Middle Phalanx Displaced Closed Initial Left Follow Up Surgery Exam Fracture Lesser Toe Middle Phalanx Displaced Closed Initial Left documented in this encounter Care Teams Take Out Waiter/Waitress Relationship Specialty Start Date End Date Elsewhere, Pcp PCP - General Internal Medicine 10/29/23 documented as of this encounter
--- OUTSIDE RECORDS SUMMARY | 2024-02-09 16:35 | XMS_ITS | Encounter Summary ---
Author Organization [facility] Address [address] [place] [address] Care Team Providers Care Deburrer Name Role Phone Elsewhere, Pcp Primary Care Provider Unavailabl e Encounter Details Date Type Department Care Team (Late st Contact Info) Description 01/25/2024 Clinical Communication Primary Care on Demand at [facility] [address] [place] [address] Aba Santos M.D. [address] [place] [address] Social History Tobacco Use Types [...] on filedocumented in this encounter Care Teams Deburrer Relationship Specialty Start Date End Date Elsewhere, Pcp PCP - General Internal Medicine 10/29/23 documented as of this encounter
--- OUTSIDE RECORDS SUMMARY | 2024-02-09 16:35 | XMS_ITS | Encounter Summary ---
Author Organization [facility] Address [address] [place] [address] Care Team Providers Care Sou[address] Vendor Name Role Phone Elsewhere, Pcp Primary Care Provider Unavailabl e Reason for Referral * Outpatient (Routine) - Closed Specialty Diagnoses / Procedures Referred By Contac t Referred To Contact Diagnoses Fracture Lesser Toe Middle Phalanx Displaced Closed Initial Left Procedures DX Toes Left 3 Views Mercy Brown D.PJennieM. [address] [place] [address] [facility] Referral ID Status Reason Start Date Expiration Date Visits Re quested Visits Authorized [id number] Closed 11/23/2023 11/22/2024 1 1 Reason for Visit * Outpatient (Routine) - Closed Specialty Diagnoses / Procedures Referred By Contac t Referred To Contact Diagnoses Fracture Lesser Toe Middle Phalanx Displaced Closed Initial Left Procedures DX Toes Left 3 Views Mercy Brown D.P.M. [address] [place] [address] [facility] Referral ID Status Reason Start Date Expiration Date Visits Re quested Visits Authorized [id number] Closed 11/23/2023 11/22/2024 1 1 Encounter Details Date Type Department Care Team (Latest Contact Info) Description 11/23/2023 8:24 AM CDT - 11/23/2023 11:59 PM CDT Hospital Encounter Department of Radiology in [place], [place] [address] [place] [phone] Mercy Najera D.P.M. [address] [place] [phone] Fracture Lesser Toe Middle Phalanx [...] Left documented in this encounter Care Teams Souvenir Street Vendor Relationship Specialty Start Date End Date Elsewhere, Pcp PCP - General Internal Medicine 10/29/23 documented as of this encounter
--- OUTSIDE RECORDS SUMMARY | 2024-02-09 16:35 | XMS_ITS ---
Author Organization [facility] Address [address] [place] [address] Care Team Providers Care Shot Man Name Role Phone Unavailable Unavailable Unavailable Surgery Details Not on file Complications Check Surgery Details section. Procedure Estimated Blood Loss Check Surgery Details section. Procedure Findings Check Surgery Details section. Procedure Specimens Taken Check Surgery Details section.
--- OUTSIDE RECORDS SUMMARY | 2024-02-09 16:35 | XMS_ITS | Encounter Summary ---
Author Organization [facility] Address [address] [place] [address] Care Team Providers Care Clerical Transcriber Name Role Phone Elsewhere, Pcp Primary Care Provider Unavailabl e Encounter Details Date Type Department Care Team (Late st Contact Info) Description 01/20/2024 Clinical Communication Primary Care on Demand at [facility] [address] [place] [address] Aba Santos M.D. [address] [place] [address] Social History Tobacco Use Types [...] on filedocumented in this encounter Care Teams Clerical Transcriber Relationship Specialty Start Date End Date Elsewhere, Pcp PCP - General Internal Medicine 10/29/23 documented as of this encounter
--- OUTSIDE RECORDS SUMMARY | 2024-02-09 16:35 | XMS_ITS | Encounter Summary ---
Author Organization [facility] Address [address] [place] [address] Care Team Providers Care Toll Service Observer Name Role Phone Elsewhere, Pcp Primary Care Provider Unavailabl e Reason for Visit * Reason Comments Follow-up Left 2nd Toe Fractur e Follow Up Follow-up Right 5th Toe, Ingro wn Toenail * Outpatient (Routine) - Closed Specialty Diagnoses / Procedures Referred By Fawad t Referred To Contact Orthopedic Surgery Mercy Brown D.PJennieM. [address] [place] [address] Mercy Brown D.PJennieMJennie [address] [place] [address] Referral ID Status Reason Start Date Expiration Date Visits Re quested Visits Authorized [id number] Closed 12/08/2023 06/08/2025 1 1 Encounter Details Date Type Department Care Team (Late st Contact Info) Description 01/04/2024 8:30 AM CDT Office Visit Department of Orthopedic Surgery in [place], [place] [address] [place] [address] Mercy Brown D.PJennieM. [address] [place] [phone] Ingrown Nail (Primary Dx) Discharge [...] the nail bed in total using a [place] elevator excised from distal to proximal in [...] care instructions were discussed and a printed [facility] postoperative instructions provided. If she has any concern she understands she cansent photos through portal. She states she has photos from previous foot problems and would like tosend those for her medical history. documented in this encounter Plan of Treatment Not on file documented as of this encounter Visit Diagnoses Diagnosis Ingrown Nail- Primary documented in this encounter Care Teams Toll Service Observer Relationship Specialty Start Date End Date Elsewhere, Pcp PCP - General Internal Medicine 10/29/23 documented as of this encounter
--- OUTSIDE RECORDS SUMMARY | 2024-02-09 16:35 | XMS_ITS | Encounter Summary ---
Author Organization [facility] Address [address] [place] [address] Care Team Providers Care Wool Grader Name Role Phone Elsewhere, Pcp Primary Care Provider Unavailabl e Reason for Visit * Reason Onset Date Comments Nurse Assessment 12/24/2023 Post op questio n for podiatry Encounter Details Date Type Department Care Team (Latest Contact Info) Description 12/24/2023 Clinical Communication Department of Orthopedic Surgery in [place], [place] [address] [place] [phone] Mercy Hernández am, D.P.M. [address] [place] [phone] Nurse Assessment (Post op question for podiatry) [...] on filedocumented in this encounter Care Teams Wool Grader Relationship Specialty Start Date End Date Elsewhere, Pcp PCP - General Internal Medicine 10/29/23 documented as of this encounter
--- OUTSIDE RECORDS SUMMARY | 2024-02-09 16:35 | XMS_ITS | Encounter Summary ---
Author Organization [facility] Address [address] [place] [address] Care Team Providers Care Licensed Clinical Social Worker Name Role Phone Elsewhere, Pcp Primary Care Provider Unavailabl e Reason for Referral * Outpatient (Routine) - Closed Specialty Diagnoses / Procedures Referred By Fawad ruffin Referred To Contact Orthopedic Surgery Mercy Brown D.PJennieMJennie [address] [place] [phone] [facility] Region Referral ID Status Reason Start Date Expiration Date Visits Re quested Visits Authorized [id number] Closed 11/18/2023 05/19/2025 1 1 Scheduling Instructions 11/23/23 at 0800 for 30 min post op Reason for Visit * Reason Comments Post-op Post op fusion left 2nd toe * Outpatient (Routine) - Closed Specialty Diagnoses / Procedures Referred By Fawad ruffin Referred To Contact Orthopedic Surgery Mercy Brown D.PJennieMJennie [address] [place] [phone] [facility] Region Referral ID Status Reason Start Date Expiration Date Visits Re quested Visits Authorized [id number] Closed 10/20/2023 04/20/2025 1 1 Encounter Details Date Type Department Care Team (Late st Contact Info) Description 11/18/2023 8:00 AM CDT Office Visit Department of Orthopedic Surgery in [address] [phone] Mercy Brown D.P.M. [address] [facility] [place] [phone] Follow Up Surgery Exam (Primary Dx) Discharge [...] November 05, 2023. Procedure was performed at [place], [place]. Surgical procedure(s) performed Mercy Ojeda D.P.M.. [...] Primary documented in this encounter Care Teams Licensed Clinical Social Worker Relationship Specialty Start Date End Date Elsewhere, Pcp PCP - General Internal Medicine 10/29/23 documented as of this encounter
--- OUTSIDE RECORDS SUMMARY | 2024-02-09 16:35 | XMS_ITS | Encounter Summary ---
Author Organization [facility] Address [address] [place] [address] Care Team Providers Care Metal Control Coordinator Name Role Phone Elsewhere, Pcp Primary Care Provider Unavailabl e Reason for Referral * Outpatient (Routine) - Closed Specialty Diagnoses / Procedures Referred By Fawad ruffin Referred To Contact Orthopedic Surgery Mercy Brown D.P.M. [address] [place] [address] Mercy Brown D.P.MJennie [address] [place] [phone] Referral ID Status Reason Start Date Expiration Date Visits Re quested Visits Authorized [id number] Closed 12/08/2023 06/08/2025 1 1 Scheduling Instructions Post op, Ingrsarath Toenail Encounter Details Date Type Department Care Team (Late st Contact Info) Description 12/08/2023 Orders Only Department of Orthopedic Surgery in [place], [place] [address] [place] [phone] Jeanie Pina, LJennieP.N. Social History Tobacco [...] on filedocumented in this encounter Care Teams Metal Control Coordinator Relationship Specialty Start Date End Date Elsewhere, Pcp PCP - General Internal Medicine 10/29/23 documented as of this encounter
--- OUTSIDE RECORDS SUMMARY | 2024-02-09 16:35 | XMS_ITS | Encounter Summary ---
Author Organization [facility] Address [address] [place] [address] Care Team Providers Care Agriculture Intern Name Role Phone Elsewhere, Pcp Primary Care [...] on filedocumented in this encounter Care Teams Agriculture Intern Relationship Specialty Start Date End Date Elsewhere, Pcp PCP - General Internal Medicine 10/29/23 documented as of this encounter
--- OUTSIDE RECORDS SUMMARY | 2024-02-09 16:35 | XMS_ITS | Encounter Summary ---
Author Organization [facility] Address [address] [place] [address] Care Team Providers Care Machine I Engraver Name Role Phone Elsewhere, Pcp Primary Care [...] Expiration Date Visits Re quested Visits Authorized [id number] 1 1 Encounter Details Date Type Department Care Team (Late st Contact Info) Description 11/05/2023 8:50 AM CDT - 11/05/2023 10:45 AM CDT Surgery Outpatient Procedure Center in [place], [place] [address] [place] [phone] Mercy Brown D.PJennieM. [address] [place] [phone] OPEN REDUCTION INTERNAL FIXATION Middle PHALANX 2nd [...] None Operative Note Narrative Kelly presented to [facility] for outpatient surgery to her left foot. [...] phalanx was removed with sagittal saw for foyw-dg-qmyw contact for fusion. Using a Synthes 2.0 [...] for discharge. She is scheduled to follow [facility] for postoperative care. Mercy Brown D.P.M. [...] 0839 (Given - Provid er: Millicent Lopez, SALES AGENT BUSINESS SERVICES, BIOTECHNICIAN, MNA, R.N.) Lactated Ringer's (COMPLETED) 20 mL/hr, [...] older documented in this encounter Care Teams Machine I Engraver Relationship Specialty Start Date End Date Elsewhere, Pcp PCP - General Internal Medicine 10/29/23 documented as of this encounter
--- OUTSIDE RECORDS SUMMARY | 2024-02-09 16:35 | XMS_ITS | Encounter Summary ---
Author Organization [facility] Address [address] [place] [address] Care Team Providers Care Academy Education Director Name Role Phone Elsewhere, Pcp Primary Care Provider Unavailabl e Reason for Referral * Outpatient (Routine) - Closed Specialty Diagnoses / Procedures Referred By Penelopeac t Referred To Contact Diagnoses Pain Foot Left Procedures FL Fluoro Less Than 1 Hour Mercy Brown D.PJennieMJennie [address] [place] [phone] [facility] Referral ID Status Reason Start Date Expiration Date Visits Re quested Visits Authorized [id number] Closed 11/05/2023 11/04/2024 1 1 Reason for Visit * Outpatient (Routine) - Closed Specialty Diagnoses / Procedures Referred By Fawad t Referred To Contact Diagnoses Pain Foot Left Procedures FL Fluoro Less Than 1 Hour Mercy Brown D.P.MJennie [address] [place] [phone] [facility] Referral ID Status Reason Start Date Expiration Date Visits Re quested Visits Authorized [id number] Closed 11/05/2023 11/04/2024 1 1 Encounter Details Date Type Department Care Team (Latest Contact Info) Description 11/05/2023 7:27 AM CDT - 11/05/2023 7:35 AM CDT Hospital Encounter Department of Radiology in [address] [phone] Mercy Najera D.P.M. [address] [facility] [place] [phone] Pain Foot Left Discharge [...] Left documented in this encounter Care Teams Academy Education Director Relationship Specialty Start Date End Date Elsewhere, Pcp PCP - General Internal Medicine 10/29/23 documented as of this encounter
--- OUTSIDE RECORDS SUMMARY | 2024-02-09 16:35 | XMS_ITS | Encounter Summary ---
Author Organization [facility] Address [address] [place] [address] Care Team Providers Care Security Operations Specialist Name Role Phone Elsewhere, Pcp Primary Care [...] Expiration Date Visits Re quested Visits Authorized [id number] 1 1 Encounter Details Date Type Department Care Team (Late st Contact Info) Description 11/05/2023 8:31 AM CDT Anesthesia Event Outpatient Procedure Center in [address] [phone] Jeanie Mcgill M.D. [address] [place] [phone] Anesthesia Record Procedure Summary Procedure Name Responsible [...] Procedure Summary Date: 11/05/23 Room / Location: [place] [address] / [facility] Anesthesia Start: 830 Anesthesia Stop: 932 Procedures: [...] [S92.522A] Arthritis Toe [M19.90] Location: OR 04 [facility] / [facility] Providers: Mercy Brown D.P.M. Pertinent components of [...] with patient /legal guardian or through an operation specialist. The use of blood products not discussed [...] mg documented in this encounter Care Teams Security Operations Specialist Relationship Specialty Start Date End Date Elsewhere, Pcp PCP - General Internal Medicine 10/29/23 documented as of this encounter
--- OUTSIDE RECORDS SUMMARY | 2024-02-09 16:36 | XMS_ITS | Clinical Summary ---
Author Organization [facility] Address [place], [place] [address] Care Team Providers Care Golf Ball Winder Name Role Phone Jack Zavala MD Primary [...] second interspace of left foot,Toe pain, left [phone] Squared Toed Post op shoe, Small 1 [...] at bedtime. 135 Tablet 1 01/04/2024 Active omeprazole (PRILOSEC) 20 mg Delayed-Release capsule Take 1 Capsule (20 mg) by mouth once daily. 90 Capsule 1 02/09/2024 Active dextroamphetami ne-amphetamine (ADDERALL XR) 20 mg Extended-Releas e capsule Take 1 Capsule (20 mg) by mouth once daily. 30 Capsule 02/09/2024 Active minocycline (MINOCIN) 100 mg capsuleIndicati ons:Acne [...] series ( season) 2023 08/12/2021, 02/07/2021, 12/13/2020 Colonoscopy through age 74 [...] this topic Medical Devices Implanted Type Area Banquet Bartender Device Identifier Shelf Expiration Date Model / Serial / Lot Cmnt Bone 40gm [facility] - [id number] Implanted:Qty: 2 on 04/05/2019 by French Torres MD at [facility] Left: Knee [employer] 10/15/2023 [id number] / / [id number] 29mm Oval Michelle Ii Resurfacing Patellar Component Implanted:Qty: 1 on 04/05/2019 by French Torres MD at [facility] Left: Knee [employer] 12/06/2028 [id number] / / [id number] Size 6 Left Bi-Cruciate Stabilized Journey Ii Bcs Oxinoim Femoral Component Implanted:Qty: 1 on 04/05/2019 by French Torres MD at [facility] Left: Knee [employer] 12/09/2028 [id number] / / [id number] Size 4 Left Journey Nonporous Tibial Baseplate Implanted:Qty: 1 on 04/05/2019 by French Torres MD at [facility] Left: Knee [employer] 11/01/2028 [id number] / / [id number] Left, Size 3-4, 9mm Journey Ii Bcs Xl Pe A/P 48mm M/L 68 Mm Articular Insert Implanted:Qty: 1 on 04/05/2019 by French Torres MD at [facility] Left: Knee [employer] 01/20/2027 [id number] / / [id number] Procedures Procedure Name Priority Date/Time Associated Diagnosis Comments LIPID PANEL W REFLEX MEASURED LDL Routine 04/09/2021 12:10 PM CDT Lipid screening XR MAMMO MICK BILAT SCREEN Routine 09/07/2020 11:20 AM HISTOLOGIC TECHNICIAN Visit for screening mammogram COLONOSCOPY 07/14/2018 10:16 AM HISTOLOGIC TECHNICIAN ANTI HCV Routine 06/22/2018 10:24 AM HISTOLOGIC TECHNICIAN Need for hepatitis C screening test from Last 3 Months or Most Recently Relevant to Health Maintenance Results * (ABNORMAL) LIPID PANEL W REFLEX MEASURED LDL (04/09/2021 12:10 PM CDT) CHOLESTEROL,TOTAL 208(H) 100 - 199 mg/dL 04/09/2021 12:51 PM CDT [facility] TRIGLYCERIDES 144 <150 mg/dL 04/09/2021 12:51 PM CDT [facility] HDL CHOLESTEROL 66 >40 mg/dL 12:51 PM CDT [facility] NON-HDL CHOLESTEROL 142 <145 mg/dl 04/09/2021 12:51 PM CDT [facility] CHOL/HDL RATIO 3.15 <4.50 04/09/2021 12:51 PM CDT [facility] LDL CHOLESTEROL 113 <=130 mg/dL 04/09/2021 12:51 PM CDT [facility] VLDL CHOLESTEROL 29 mg/dL 04/09/20 12:51 PM CDT [facility] PROVIDER ORDERED STATUS RANDOM 04/09/2021 12:51 PM CDT [facility] Blood BLOOD SPECIMEN / Unknown Venipuncture / Unknown 04/09/2021 12:10 PM CDT 04/09/2021 12:12 PM CDT Rocael Simpsonradha DO CHEMISTRY [facility] [address] [place] [address] * XR MAMMO MICK BILAT SCREEN (09/07/2020 11:20 AM HISTOLOGIC TECHNICIAN) Anatomical Region Laterality Modality BREASTS, Breast Left, Breast Right Bilateral Mammography Impressions 09/10/2020 7:00 AM HISTOLOGIC TECHNICIAN ??There is no radiographic evidence for malignancy. ??Recommend annual mammograms. A lay language report of this examination will be provided to the patient. MAMMOGRAM ASSESSMENT: ??ACR 2 Benign Narrative 09/10/2020 7:00 AM HISTOLOGIC TECHNICIAN XR MAMMO MICK BILAT SCREEN [[id number]] CLINICAL HISTORY: ??This is an asymptomatic 54 y.o. patient. INDICATION FOR EXAM: Mammogram Screening. TECHNIQUE: CC & MLO views were obtained. ??This digital study was evaluated with the assistance of Computer-Aided Detection. Breast Tomosynthesis was used in interpretation. COMPARISON FILMS: Yes 08/24/18 [facility] ?? FINDINGS: ??The breasts are heterogeneously dense, which may obscure small masses. ??No suspicious masses or microcalcifications. ??Benign appearing calcifications within right breast and Post surgical changes within ??left breast. Ortiz GARCIA MAMMO * COLONOSCOPY (07/14/2018 10:16 AM HISTOLOGIC TECHNICIAN) 07/14/2018 10:1 6 AM HISTOLOGIC TECHNICIAN Narrative Transcriptions Tod Cantu MD - 07/14/2018 1:14 PM CST Patient Name: Kelly Mcgee Procedure Date: 07/14/2018 Gender: Female Date of : 1965 Admit Type: Ambulatory Procedure: Colonoscopy Proceduralist: Tod Ward Indications/Pre-Op Diagnosis: High risk colon cancer surveillance:Personal [...] Cantu MD PROCEDURE ORD * ANTI HCV [08246.2] (06/22/2018 10:24 AM HISTOLOGIC TECHNICIAN) HEPATITIS C ANTIBODY Non-React sage Non-React sage 06/22/2018 5:59 PM HISTOLOGIC TECHNICIAN [facility] Comment:Antibodies to HCV no t detected; does not exclude the possibility of exposure to HCV. Blood BLOOD SPECIMEN / Unknown Venipuncture / Unknown 06/22/2018 10:24 AM HISTOLOGIC TECHNICIAN 06/22/2018 10:30 AM HISTOLOGIC TECHNICIAN Khoa Abel MD [facility] [address] [place] [address], from Last 3 Months or Most Recently Relevant to Health Maintenance Advance Directives * Full Code (Latest Code Status on File) Date Activated Date Inactivated Comments 04/07/2019 11:24 PM 04/09/2019 3:34 PM Question Answer Comments Code Status Discussion: Discussed * Full Code Date Activated Date Inactivated Comments 04/05/2019 6:12 AM 04/07/2019 10:02 PM Question Answer Comments Code Status Discussion: Discussed Care Teams Golf Ball Winder Relationship Specialty Start Date End Date Jack Zavala MD [address] [place] [address] PCP - General Family Practice 03/31/22
== END 2024-02-09 16:32 | disposition home or self-care (01) ==
LOC: FBOREF 16:33
PROVIDERS: PCP Family Medicine; Visit Provider Family Medicine
DX: N18.2 Chronic kidney disease, stage 2 (mild) (principal); E03.9 Hypothyroidism, unspecified; D68.51 Activated protein C resistance; R74.8 Abnormal levels of other serum enzymes; D36.9 Benign neoplasm, unspecified site; M79.7 Fibromyalgia; K21.9 Gastro-esophageal reflux disease without esophagitis; F90.0 Attention-deficit hyperactivity disorder, predominantly inattentive type
CPT/HCPCS: 80053; 87086

== ENCOUNTER 2024-02-19 09:33 | Outpatient (CLI) | payer BC, SELFPAY ==
--- OUTSIDE RECORDS SUMMARY | 2024-02-19 09:35 | XMS_ITS | Encounter Summary ---
Author Organization [facility] Address [address] [place] [address] Care Team Providers Care Home Care Assistant Name Role Phone Elsewhere, Pcp Primary Care Provider Unavailabl e Reason for Visit * Reason Comments Follow-up Left 2nd Toe Fractur e Follow Up Follow-up Right 5th Toe, Ingro wn Toenail * Outpatient (Routine) - Closed Specialty Diagnoses / Procedures Referred By Fawad t Referred To Contact Orthopedic Surgery Mercy Brown D.PJennieM. [address] [place] [phone] Mercy Brown D.PJennieMJennie [address] [place] [address] Referral ID Status Reason Start Date Expiration Date Visits Re quested Visits Authorized [id number] Closed 12/08/2023 06/08/2025 1 1 Encounter Details Date Type Department Care Team (Late st Contact Info) Description 01/04/2024 8:30 AM CDT Office Visit Department of Orthopedic Surgery in [place], [place] [address] [place] [phone] Mercy Brown D.PJennieM. [address] [place] [phone] Ingrown Nail (Primary Dx) Discharge [...] the nail bed in total using a Butternut elevator excised from distal to proximal in [...] care instructions were discussed and a printed [facility] postoperative instructions provided. If she has any concern she understands she cansent photos through portal. She states she has photos from previous foot problems and would like tosend those for her medical history. documented in this encounter Plan of Treatment Not on file documented as of this encounter Visit Diagnoses Diagnosis Ingrown Nail- Primary documented in this encounter Care Teams Home Care Assistant Relationship Specialty Start Date End Date Elsewhere, Pcp PCP - General Internal Medicine 10/29/23 documented as of this encounter
--- OUTSIDE RECORDS SUMMARY | 2024-02-19 09:35 | XMS_ITS | Encounter Summary ---
Author Organization [facility] Address [address] [place] [address] Care Team Providers Care Solid Waste Facility Supervisor Name Role Phone Elsewhere, Pcp Primary Care Provider Unavailabl e Encounter Details Date Type Department Care Team (Late st Contact Info) Description 01/25/2024 Clinical Communication Primary Care on Demand at [facility] [address] [place] [address] Aba Santos M.D. [address] [place] [address] Social History Tobacco Use Types [...] on filedocumented in this encounter Care Teams Solid Waste Facility Supervisor Relationship Specialty Start Date End Date Elsewhere, Pcp PCP - General Internal Medicine 10/29/23 documented as of this encounter
--- OUTSIDE RECORDS SUMMARY | 2024-02-19 09:35 | XMS_ITS | Clinical Summary ---
Author Organization [facility] Address [address] [place] [address] Care Team Providers Care Meatcutter Name Role Phone Elsewhere, Pcp Primary Care Provider Unavailabl e Source Comments Patient records contain information from all sites at [facility]. For routine questions regarding patient records, call [phone] during business hours, M-F 8:00 AM - 5:00 PM Central Time. Record requests for emergency care only can be directed to [phone] at any time.[facility] Allergies Active Allergy Reactions Criticality Noted [...] Clinical Communication Primary Care on Demand at [address] [phone] Aba Santos M.D. 01/20/2024 Clinical Communication Primary Care on Demand at [address] [phone] Aba Santos M.D. 01/04/2024 8:30 AM CDT Office Visit Department of Orthopedic Surgery in [address] [phone] Mercy Hernández am, D.PJennieMJennie Ingrown Nail (Primary Dx) Discharge Disposition: Home or Self Care 01/04/2024 7:50 AM CDT - 01/04/2024 11:59 PM CDT Hospital Encounter Department of Radiology in [address] [phone] Mercy Hernández am, D.PJennieMJennie Swelling Toe Discharge Disposition: Home or Self Care 12/28/2023 Orders Only Department of Orthopedic Surgery in [place] [phone] Mercy Hernández am, D.P.M. Swelling Toe (Primary Dx) 12/24/2023 Clinical Communication Department of Orthopedic Surgery in [address] [phone] Mercy Hernández am, D.P.M. Nurse Assessment (Post op question for podiatry) 12/08/2023 1:06 PM CDT - 12/08/2023 11:59 PM CDT Hospital Encounter Department of Radiology in [address] [phone] Mercy Hernández am, D.PBradley Follow Up Surgery Exam; Fracture Lesser Toe Middle Phalanx Displaced Closed Initial Left Discharge Disposition: Home or Self Care 12/08/2023 1:00 PM CDT Office Visit Department of Orthopedic Surgery in [address] [phone] Mercy Hernández am, D.PBradley Follow Up Surgery Exam (Primary Dx); Fracture Lesser Toe Middle Phalanx Displaced Closed Initial Left Discharge Disposition: Home or Self Care 12/08/2023 Orders Only Department of Orthopedic Surgery in [address] [phone] Jeanie Pina L.P.NJennie 11/23/2023 8:24 AM CDT - 11/23/2023 11:59 PM CDT Hospital Encounter Department of Radiology in [address] [phone] Mercy Hernández am, D.PBradley Fracture Lesser Toe Middle Phalanx Displaced Closed Initial Left Discharge Disposition: Home or Self Care 11/23/2023 8:00 AM CDT Office Visit Department of Orthopedic Surgery in [address] [phone] Mercy Hernández am, D.PBradley Fracture Lesser Toe Middle Phalanx Displaced Closed Initial Left (Primary Dx); Follow Up Surgery Exam Discharge Disposition: Home or Self Care from [...] Vaccine ( season) 2023 08/12/2021, 02/07/2021, 12/13/2020 Depression Screening (Annual PHQ-2) 08/17/2023 Influenza Vaccine (#1) 2024 , 04/28/2021, 06/26/2020, Additional history exists Creatinine Level (Kidney Function Test) 10/28/2024 10/29/2023, 04/09/2021, 02/14/2020, Additional history exists Potassium Level 10/28/2024 10/29/2023, 0811/2020, 02/14/2020, Additional history exists Sodium Level 10/28/2024 10/29/2023, 08/2 11/2020, 02/14/2020, Additional history exists Thyroid Stimulating Hormone [...] 06/02/2022, 06/26/2020 Medical Devices Implanted Type Area Fabrication And Layout Craftsman Device Identifier Shelf Expiration Date Model / Serial / Lot Scrw St Fthrd Nlck Sld 2.0x6 - [id number] Implanted:Qty: 2 on 11/05/2023 by Mercy Hogan D.P.MJennie at [facility] Hardware e.g. pins/screws/r ods Depuy Synthes [id number] / / [id number] Fthrd Nlck Sld 2.0x7 - [id number] Implanted:Qty: 1 on 11/05/2023 by Mercy Hogan D.P.MJennie at [facility] Hardware e.g. pins/screws/r ods Depuy Synthes [id number] / / .[id number] 19 Plt Hnd Lcd 4h Lck 2.4x24 - [id number] Implanted:Qty: 1 on 11/05/2023 by Mercy Hogan D.P.MJennie at [facility] Hardware e.g. pins/screws/r ods Depuy Synthes [id number] / / .04.24.0 19 Procedures Procedure Name Priority Date/Time Associated [...] BILATERAL WITH TOMOSYNTHESIS Routine 09/07/2020 11:20 AM SOAPING MACHINE BACK TENDER from Last 3 Months or Most Recently [...] swelling [facility] AGNOSTIC IMAGING PROCEDURES * Thyroid Function [place] (10/29/2023 1:04 PM CDT) TSH, Sensitive 2.1 0.3 - 4.2 mIU/L 10/29/2023 6:29 PM CDT OWAT Blood (Blood, Venous) 10/29/2023 1:04 PM CDT 10/29/2023 5:47 PM CDT Scotty Givens APRNN.PJennie, D .N.P. LAB BLOOD ADD-ON [facility] [address] [place] [address], [facility] OWAT [facility] [place] [address] [place] [address] * (ABNORMAL) Basic Metabolic Panel (10/29/2023 1:04 [...] Mercy Brown D.P.M. LAB BL OOD ADD-ON [facility] [address] [place] [address], [place] OWAT [facility] [place] [address] [place] [address] from Last 3 Months or Most Recently Relevant to Health Maintenance Advance Directives For more information, please contact: [phone] * Full Code (Latest Code Status on File) Date Activated Date Inactivated Comments 11/05/2023 9:43 AM 11/05/2023 12:56 PM Question Answer Comments Full Code: Discussed * Full Code Date Activated Date Inactivated Comments 11/05/2023 7:38 AM 11/05/2023 9:43 AM Question Answer Comments Full Code: Discussed Care Teams Meatcutter Relationship Specialty Start Date End Date Elsewhere, Pcp PCP - General Internal Medicine 10/29/23
--- OUTSIDE RECORDS SUMMARY | 2024-02-19 09:35 | XMS_ITS | Encounter Summary ---
Author Organization [facility] Address [address] [place] [address] Care Team Providers Care Automatic Silk Screen Printer Name Role Phone Elsewhere, Pcp Primary Care Provider Unavailabl e Reason for Referral * Outpatient (Routine) - Closed Specialty Diagnoses / Procedures Referred By Penelopeac t Referred To Contact Diagnoses Swelling Toe Procedures DX Toes Left 3 Views Mercy Brown D.P.M. [address] [place] [phone] [facility] Referral ID Status Reason Start Date Expiration Date Visits Re quested Visits Authorized [id number] Closed 12/28/2023 12/27/2024 1 1 Reason for Visit * Outpatient (Routine) - Closed Specialty Diagnoses / Procedures Referred By Fawad t Referred To Contact Diagnoses Swelling Toe Procedures DX Toes Left 3 Views Mercy Brown D.P.MJennie [address] [place] [phone] [facility] Referral ID Status Reason Start Date Expiration Date Visits Re quested Visits Authorized [id number] Closed 12/28/2023 12/27/2024 1 1 Encounter Details Date Type Department Care Team (Latest Contact Info) Description 01/04/2024 7:50 AM CDT - 01/04/2024 11:59 PM CDT Hospital Encounter Department of Radiology in [address] [phone] Mercy Najera D.P.M. [address] [place] [phone] Swelling Toe Discharge Disposition: Home or Self [...] Toe documented in this encounter Care Teams Automatic Silk Screen Printer Relationship Specialty Start Date End Date Elsewhere, Pcp PCP - General Internal Medicine 10/29/23 documented as of this encounter
--- OUTSIDE RECORDS SUMMARY | 2024-02-19 09:35 | XMS_ITS | Patient Health Record ---
Author Organization [facility] Address [address] [facility] [place] [id number] Care Team Providers Care Nuclear Medicine Specialist Name Role Phone NONE, Use Primary Care Provider UnavailMikal Grayson Unavailable [phone] DO Baldwin Brian R. Unavailable Unavailable Allergies [...] Status W/U Status Risk Notes Problem Overweight (598197846) Overweight (E66.3) Active confirmed Problem Pain in left foot ([id number]) Pain in left foot (M79.672) Active [...]
--- OUTSIDE RECORDS SUMMARY | 2024-02-19 09:35 | XMS_ITS | Encounter Summary ---
Author Organization [facility] Address [address] [place] [address] Care Team Providers Care Marker Shipments Name Role Phone Elsewhere, Pcp Primary Care Provider Unavailabl e Encounter Details Date Type Department Care Team (Late st Contact Info) Description 01/20/2024 Clinical Communication Primary Care on Demand at [facility] [address] [place] [address] Aba Santos M.D. [address] [place] [address] Social History Tobacco Use Types [...] on filedocumented in this encounter Care Teams Marker Shipments Relationship Specialty Start Date End Date Elsewhere, Pcp PCP - General Internal Medicine 10/29/23 documented as of this encounter
--- OUTSIDE RECORDS SUMMARY | 2024-02-19 09:35 | XMS_ITS ---
Author Organization [facility] Address [address] [place] [address] Care Team Providers Care Soft Iron Inspector Name Role Phone Unavailable Unavailable Unavailable Surgery Details Not on file Complications Check Surgery Details section. Procedure Estimated Blood Loss Check Surgery Details section. Procedure Findings Check Surgery Details section. Procedure Specimens Taken Check Surgery Details section.
--- OUTSIDE RECORDS SUMMARY | 2024-02-19 09:35 | XMS_ITS | Encounter Summary ---
Author Organization [facility] Address [address] [place] [address] Care Team Providers Care Warehouse Director Name Role Phone Elsewhere, Pcp Primary Care Provider Unavailabl e Reason for Referral * Outpatient (Routine) - Closed Specialty Diagnoses / Procedures Referred By Fawad ruffin Referred To Contact Diagnoses Swelling Toe Procedures DX Toes Left 3 Views Mercy Brown D.PJennieMJennie [address] [place] [address] [facility] Referral ID Status Reason Start Date Expiration Date Visits Re quested Visits Authorized [id number] Closed 12/28/2023 12/27/2024 1 1 Encounter Details Date Type Department Care Team (Late st Contact Info) Description 12/28/2023 Orders Only Department of Orthopedic Surgery in [place], [place] [address] [place] [address] Mercy Brown D.PJennieMJennie [address] [place] [address] Swelling Toe (Primary Dx) Social [...] Toe documented in this encounter Care Teams Warehouse Director Relationship Specialty Start Date End Date Elsewhere, Pcp PCP - General Internal Medicine 10/29/23 documented as of this encounter
--- OUTSIDE RECORDS SUMMARY | 2024-02-19 09:35 | XMS_ITS | Referral Summary ---
Author Organization [facility] Address [address] [place] [address] Care Team Providers Care Drafter Geological Name Role Phone Elsewhere, Pcp Primary Care Provider Unavailabl e Source Comments Patient records contain information from all sites at [facility]. For routine questions regarding patient records, call [phone] during business hours, M-F 8:00 AM - 5:00 PM Central Time. Record requests for emergency care only can be directed to [phone] at any time.[facility] Encounters Date Type Department Care Team Description 01/25/2024 Clinical Communication Primary Care on Demand at [address] [address] Aba Santos M.D. 01/20/2024 Clinical Communication Primary Care on Demand at [address] [address] Aba Santos M.D. 01/04/2024 7:50 AM CDT - 01/04/2024 11:59 PM CDT Hospital Encounter Department of Radiology in [address] [phone] Mercy Hernández am, D.PBradley Swelling Toe Discharge Disposition: Home or Self Care 01/04/2024 8:30 AM CDT Office Visit Department of Orthopedic Surgery in [address] [phone] Mercy Hernández am, D.PJennieMJennie Ingrown Nail (Primary Dx) Discharge Disposition: Home or Self Care 12/28/2023 Orders Only Department of Orthopedic Surgery in [address] [phone] Mercy Hernández am, D.P.M. Swelling Toe (Primary Dx) 12/24/2023 Clinical Communication Department of Orthopedic Surgery in [address] [phone] Mercy Hernández am, D.P.M. Nurse Assessment (Post op question for podiatry) 12/08/2023 Orders Only Department of Orthopedic Surgery in [address] [phone] Jeanie Pina L.P.N. 12/08/2023 1:06 PM CDT - 12/08/2023 11:59 PM CDT Hospital Encounter Department of Radiology in [address] [phone] Mercy Hernández am, D.P.MJennie Follow Up Surgery Exam; Fracture Lesser Toe Middle Phalanx Displaced Closed Initial Left Discharge Disposition: Home or Self Care 12/08/2023 1:00 PM CDT Office Visit Department of Orthopedic Surgery in [address] [phone] Mercy Hernández am, D.PJennieMJennie Follow Up Surgery Exam (Primary Dx); Fracture Lesser Toe Middle Phalanx Displaced Closed Initial Left Discharge Disposition: Home or Self Care 11/23/2023 8:24 AM CDT - 11/23/2023 11:59 PM CDT Hospital Encounter Department of Radiology in [address] [phone] Mercy Hernández am, D.PBradley Fracture Lesser Toe Middle Phalanx Displaced Closed Initial Left Discharge Disposition: Home or Self Care 11/23/2023 8:00 AM CDT Office Visit Department of Orthopedic Surgery in [address] [phone] Mercy Hernández am, D.P.M. Fracture Lesser Toe [...] on file Medical Devices Implanted Type Area Practice Performance Manager Device Identifier Shelf Expiration Date Model / Serial / Lot Scrw St Fthrd Nlck Sld 2.0x6 - [id number] Implanted:Qty: 2 on 11/05/2023 by Mercy Hogan D.P.MJennie at [facility] Hardware e.g. pins/screws/r ods Depuy Synthes [id number] / / 24.[address] Fthrd Nlck Sld 2.0x7 - [id number] Implanted:Qty: 1 on 11/05/2023 by Mercy Hogan D.P.MJennie at [facility] Hardware e.g. pins/screws/r ods Depuy Synthes [id number] / / 24.0 19 Plt Hnd Lcd 4h Lck 2.4x24 - [id number] Implanted:Qty: 1 on 11/05/2023 by Mercy Hogan D.P.MJennie at [facility] Hardware e.g. pins/screws/r ods Depuy Synthes [...] BILATERAL WITH TOMOSYNTHESIS Routine 09/07/2020 11:20 AM ROBOTICS SYSTEMS ENGINEER from Last 3 Months or Most Recently [...] DI AGNOSTIC IMAGING PROCEDURES * Thyroid Function [place] (10/29/2023 1:04 PM CDT) TSH, Sensitive 2.1 0.3 - 4.2 mIU/L 10/29/2023 6:29 PM CDT OWAT Blood (Blood, Venous) 10/29/2023 1:04 PM CDT 10/29/2023 5:47 PM CDT Stephen Givens APRN.N.Rogelio, D .N.P. LAB BLOOD ADD-ON [facility] [address] [place] [address], [facility] OWAT [facility] [place] [address] [place] [address] * (ABNORMAL) Basic Metabolic Panel (10/29/2023 1:04 [...] Mercy Brown D.P.M. LAB BL OOD ADD-ON [facility] [address] [place] [address], [place] OWAT [facility] in [place] [address] [place] [address] from Last 3 Months or Most Recently Relevant to Health Maintenance Advance Directives For more information, please contact: [phone] * Full Code (Latest Code Status on File) Date Activated Date Inactivated Comments 11/05/2023 9:43 AM 11/05/2023 12:56 PM Question Answer Comments Full Code: Discussed * Full Code Date Activated Date Inactivated Comments 11/05/2023 7:38 AM 11/05/2023 9:43 AM Question Answer Comments Full Code: Discussed Care Teams Drafter Geological Relationship Specialty Start Date End Date Elsewhere, Pcp PCP - General Internal Medicine 10/29/23
--- OUTSIDE RECORDS SUMMARY | 2024-02-19 09:36 | XMS_ITS | Encounter Summary ---
Author Organization [facility] Address [address] [place] [address] Care Team Providers Care Electron Tube Assembler Name Role Phone Elsewhere, Pcp Primary Care Provider Unavailabl e Reason for Referral * Outpatient (Routine) - Closed Specialty Diagnoses / Procedures Referred By Fawad ruffin Referred To Contact Orthopedic Surgery Meryc Brown D.P.M. [address] [place] [phone] Mercy Brown D.P.MJennie [address] [place] [phone] Referral ID Status Reason Start Date Expiration Date Visits Re quested Visits Authorized [id number] Closed 12/08/2023 06/08/2025 1 1 Scheduling Instructions Post op, Ingrown Toenail Encounter Details Date Type Department Care Team (Late st Contact Info) Description 12/08/2023 Orders Only Department of Orthopedic Surgery in [place], [place] [address] [place] [phone] Jeanie Pina, LJennieP.N. Social History Tobacco [...] on filedocumented in this encounter Care Teams Electron Tube Assembler Relationship Specialty Start Date End Date Elsewhere, Pcp PCP - General Internal Medicine 10/29/23 documented as of this encounter
--- OUTSIDE RECORDS SUMMARY | 2024-02-19 09:36 | XMS_ITS | Encounter Summary ---
Author Organization [facility] Address [address] [place] [address] Care Team Providers Care Shared Services Manager Name Role Phone Elsewhere, Pcp Primary Care Provider Unavailabl e Reason for Referral * Outpatient (Routine) - Closed Specialty Diagnoses / Procedures Referred By Fawad ruffin Referred To Contact Orthopedic Surgery Mercy Brown D.PJennieMJennie [address] [place] [phone] [facility] Region Referral ID Status Reason Start Date Expiration Date Visits Re quested Visits Authorized [id number] Closed 11/18/2023 05/19/2025 1 1 Scheduling Instructions 11/23/23 at 0800 for 30 min post op Reason for Visit * Reason Comments Post-op Post op fusion left 2nd toe * Outpatient (Routine) - Closed Specialty Diagnoses / Procedures Referred By Fawad ruffin Referred To Contact Orthopedic Surgery Mercy Brown D.PJennieMJennie [address] [place] [phone] [facility] Region Referral ID Status Reason Start Date Expiration Date Visits Re quested Visits Authorized [id number] Closed 10/20/2023 04/20/2025 1 1 Encounter Details Date Type Department Care Team (Late st Contact Info) Description 11/18/2023 8:00 AM CDT Office Visit Department of Orthopedic Surgery in [address] [phone] Mercy Brown D.P.M. [address] [facility] [place] [phone] Follow Up Surgery Exam (Primary Dx) Discharge [...] November 05, 2023. Procedure was performed at [place], [place]. Surgical procedure(s) performed Mercy Ojeda D.P.M.. [...] Primary documented in this encounter Care Teams Shared Services Manager Relationship Specialty Start Date End Date Elsewhere, Pcp PCP - General Internal Medicine 10/29/23 documented as of this encounter
--- OUTSIDE RECORDS SUMMARY | 2024-02-19 09:36 | XMS_ITS | Encounter Summary ---
Author Organization [facility] Address [address] [place] [address] Care Team Providers Care Grants Manager Name Role Phone Elsewhere, Pcp Primary Care Provider Unavailabl e Reason for Referral * Outpatient (Routine) - Closed Specialty Diagnoses / Procedures Referred By Fawad ruffin Referred To Contact Diagnoses Follow Up Surgery Exam Fracture Lesser Toe Middle Phalanx Displaced Closed Initial Left Procedures DX Toes Left 3 Views Mercy Brown D.PJennieMJennie [address] [place] [address] [facility] Region Referral ID Status Reason Start Date Expiration Date Visits Re quested Visits Authorized [id number] Closed 12/08/2023 12/07/2024 1 1 Reason for Visit * Reason Comments Post-op S/P ORIF middle phal anx and fusion of the proximal interphalangeal joint left 2nd toe (DOS:11/05/2023) * Outpatient (Routine) - Closed Specialty Diagnoses / Procedures Referred By Fawad ruffin Referred To Contact Orthopedic Surgery Mercy Brown D.PJennieMJennie [address] [place] [address] [facility] Referral ID Status Reason Start Date Expiration Date Visits Re quested Visits Authorized [id number] Closed 11/23/2023 05/24/2025 1 1 Encounter Details Date Type Department Care Team ([facility] st Contact Info) Description 12/08/2023 1:00 PM CDT Office Visit Department of Orthopedic Surgery in [place], [place] [address] [place] [phone] Mercy Brown D.P.M. [address] [place] [phone] Follow Up Surgery Exam (Primary Dx); Fracture [...] November 05, 2023. Procedure was performed at [place], [place]. Surgical procedure(s) performed Mercy Ojeda D.P.M.. [...] Left documented in this encounter Care Teams Grants Manager Relationship Specialty Start Date End Date Elsewhere, Pcp PCP - General Internal Medicine 10/29/23 documented as of this encounter
--- OUTSIDE RECORDS SUMMARY | 2024-02-19 09:36 | XMS_ITS | Encounter Summary ---
Author Organization [facility] Address [address] [place] [address] Care Team Providers Care Functional Consultant Name Role Phone Elsewhere, Pcp Primary Care Provider Unavailabl e Reason for Visit * Reason Onset Date Comments Nurse Assessment 12/24/2023 Post op questio n for podiatry Encounter Details Date Type Department Care Team (Latest Contact Info) Description 12/24/2023 Clinical Communication Department of Orthopedic Surgery in [place], [place] [address] [place] [phone] Mercy Hernández am, D.P.M. [address] [place] [phone] Nurse Assessment (Post op question for podiatry) [...] on 01-04-2024. * Telephone Encounter - Randi jA R.N. - 12/24/2023 4:15 PM CDT Spoke [...] on filedocumented in this encounter Care Teams Functional Consultant Relationship Specialty Start Date End Date Elsewhere, Pcp PCP - General Internal Medicine 10/29/23 documented as of this encounter
--- OUTSIDE RECORDS SUMMARY | 2024-02-19 09:36 | XMS_ITS | Encounter Summary ---
Author Organization [facility] Address [address] [place] [address] Care Team Providers Care Tour Driver Name Role Phone Elsewhere, Pcp Primary Care Provider Unavailabl e Reason for Referral * Outpatient (Routine) - Closed Specialty Diagnoses / Procedures Referred By Contac t Referred To Contact Orthopedic Surgery Mercy Brown D.P.M. [address] [place] [address] [facility] Referral ID Status Reason Start Date Expiration Date Visits Re quested Visits Authorized [id number] Closed 11/23/2023 05/24/2025 1 1 Scheduling Instructions Post op * Outpatient (Routine) - Authorized Specialty Diagnoses / Procedures Referred By Contac t Referred To Contact Orthopedic Surgery Diagnoses Fracture Lesser Toe Middle Phalanx Displaced Closed Initial Left Mercy Brown D.P.M. [address] [place] [phone] [facility] Region Referral ID Status Reason Start Date Expiration Date V isits Requested Visits Authorized [id number] Authorized 11/23/2023 05/24/2025 1 1 * Outpatient (Routine) - Closed Specialty Diagnoses / Procedures Referred By Contac t Referred To Contact Diagnoses Fracture Lesser Toe Middle Phalanx Displaced Closed Initial Left Procedures DX Toes Left 3 Views Mercy Brown D.P.M. [address] [place] [phone] [facility] Region Referral ID Status Reason Start Date Expiration Date Visits Re quested Visits Authorized [id number] Closed 11/23/2023 11/22/2024 1 1 Reason for Visit * Reason Comments Post-op S/P ORIF middle phal anx and fusion of the proximal interphalangeal joint left 2nd toe (DOS:11/05/2023) * Outpatient (Routine) - Closed Specialty Diagnoses / Procedures Referred By Fawad ruffin Referred To Contact Orthopedic Surgery Mercy Brown D.P.M. [address] [place] [phone] [facility] Referral ID Status Reason Start Date Expiration Date Visits Re quested Visits Authorized [id number] Closed 11/18/2023 05/19/2025 1 1 Encounter Details Date Type Department Care Team (Late st Contact Info) Description 11/23/2023 8:00 AM CDT Office Visit Department of Orthopedic Surgery in [address] [phone] Mercy Brown D.PJennieMJennie [address] [place] [phone] Fracture Lesser Toe Middle Phalanx Displaced [...] November 05, 2023. Procedure was performed at [place], [place]. Surgical procedure(s) performed Mercy Ojeda D.P.M.. [...] Left documented in this encounter Care Teams Tour Driver Relationship Specialty Start Date End Date Elsewhere, Pcp PCP - General Internal Medicine 10/29/23 documented as of this encounter
--- OUTSIDE RECORDS SUMMARY | 2024-02-19 09:36 | XMS_ITS | Encounter Summary ---
Author Organization [facility] Address [address] [place] [address] Care Team Providers Care Vehicle Body Sander Name Role Phone Elsewhere, Pcp Primary Care Provider Unavailabl e Reason for Referral * Outpatient (Routine) - Closed Specialty Diagnoses / Procedures Referred By Contac t Referred To Contact Diagnoses Fracture Lesser Toe Middle Phalanx Displaced Closed Initial Left Procedures DX Toes Left 3 Views Mercy Brown D.PJennieM. [address] [place] [address] [facility] Referral ID Status Reason Start Date Expiration Date Visits Re quested Visits Authorized [id number] Closed 11/23/2023 11/22/2024 1 1 Reason for Visit * Outpatient (Routine) - Closed Specialty Diagnoses / Procedures Referred By Contac t Referred To Contact Diagnoses Fracture Lesser Toe Middle Phalanx Displaced Closed Initial Left Procedures DX Toes Left 3 Views Mercy Brown D.P.M. [address] [place] [address] [facility] Referral ID Status Reason Start Date Expiration Date Visits Re quested Visits Authorized [id number] Closed 11/23/2023 11/22/2024 1 1 Encounter Details Date Type Department Care Team (Latest Contact Info) Description 11/23/2023 8:24 AM CDT - 11/23/2023 11:59 PM CDT Hospital Encounter Department of Radiology in [place], [place] [address] [place] [phone] Mercy Najera D.P.M. [address] [place] [phone] Fracture Lesser Toe Middle Phalanx [...] Left documented in this encounter Care Teams Vehicle Body Sander Relationship Specialty Start Date End Date Elsewhere, Pcp PCP - General Internal Medicine 10/29/23 documented as of this encounter
--- OUTSIDE RECORDS SUMMARY | 2024-02-19 09:36 | XMS_ITS | Encounter Summary ---
Author Organization [facility] Address [address] [place] [address] Care Team Providers Care Floor Trader Name Role Phone Elsewhere, Pcp Primary Care Provider Unavailabl e Reason for Visit * Reason Comments Post-op 1st Post op open red uction internal fixation left foot * Outpatient (Routine) - Closed Specialty Diagnoses / Procedures Referred By Fawad ruffin Referred To Contact Orthopedic Surgery Mercy Brown D.PJennieMJennie [address] [place] [address] [facility] Referral ID Status Reason Start Date Expiration Date Visits Re quested Visits Authorized [id number] Closed 10/20/2023 04/20/2025 1 1 Encounter Details Date Type Department Care Team (Late st Contact Info) Description 11/11/2023 11:00 AM CDT Office Visit Department of Orthopedic Surgery in [place], [place] [address] [place] [phone] Mercy Brown D.PJennieMJennie [address] [place] [phone] Follow Up Surgery Exam (Primary [...] November 05, 2023. Procedure was performed at [place], [place]. Surgical procedure(s) performed Mercy Ojeda D.P.M.. [...] Primary documented in this encounter Care Teams Floor Trader Relationship Specialty Start Date End Date Elsewhere, Pcp PCP - General Internal Medicine 10/29/23 documented as of this encounter
--- OUTSIDE RECORDS SUMMARY | 2024-02-19 09:36 | XMS_ITS | Encounter Summary ---
Author Organization [facility] Address [address] [place] [address] Care Team Providers Care Bracer Name Role Phone Elsewhere, Pcp Primary Care Provider Unavailabl e Reason for Referral * Outpatient (Routine) - Closed Specialty Diagnoses / Procedures Referred By Fawad ruffin Referred To Contact Diagnoses Follow Up Surgery Exam Fracture Lesser Toe Middle Phalanx Displaced Closed Initial Left Procedures DX Toes Left 3 Views Mercy Brown D.P.MJennie [address] [place] [address] [facility] Region Referral ID Status Reason Start Date Expiration Date Visits Re quested Visits Authorized [id number] Closed 12/08/2023 12/07/2024 1 1 Reason for Visit * Outpatient (Routine) - Closed Specialty Diagnoses / Procedures Referred By Fawad ruffin Referred To Contact Diagnoses Follow Up Surgery Exam Fracture Lesser Toe Middle Phalanx Displaced Closed Initial Left Procedures DX Toes Left 3 Views Mercy Brown D.P.MJennie [address] [place] [address] [facility] Region Referral ID Status Reason Start Date Expiration Date Visits Re quested Visits Authorized [id number] Closed 12/08/2023 12/07/2024 1 1 Encounter Details Date Type Department Care Team (Latest Contact Info) Description 12/08/2023 1:06 PM CDT - 12/08/2023 11:59 PM CDT Hospital Encounter Department of Radiology in [place], [place] [address] [place] [phone] Mercy Najera D.P.M. [address] [place] [phone] Follow Up Surgery Exam; Fracture Lesser Toe [...] Left documented in this encounter Care Teams Bracer Relationship Specialty Start Date End Date Elsewhere, Pcp PCP - General Internal Medicine 10/29/23 documented as of this encounter
--- OUTSIDE RECORDS SUMMARY | 2024-02-19 09:36 | XMS_ITS | Clinical Summary ---
Author Organization [facility] Address [place], [place] [address] Care Team Providers Care Call Center Coordinator Name Role Phone Jack Zavala MD Primary [...] second interspace of left foot,Toe pain, left [phone] Squared Toed Post op shoe, Small 1 [...] mouth once daily. 30 Capsule 02/09/2024 Active polyethylene glycol-electrol yte (GOLYTELY) 236-22.74-6.74 -5.86 gram suspension 240 mL orally every 10 minutes; until fecal effluent is clear 4000 mL 02/10/2024 Active minocycline (MINOCIN) 100 mg capsuleIndicati ons:Acne [...] this topic Medical Devices Implanted Type Area Fiction Writer Device Identifier Shelf Expiration Date Model / Serial / Lot Cmnt Bone 40gm Santiago Motta Ab - [id number] Implanted:Qty: 2 on 04/05/2019 by French Torres MD at [facility] Left: Knee [employer] 10/15/2023 [id number] / / [id number] 29mm Oval Michelle Ii Resurfacing Patellar Component Implanted:Qty: 1 on 04/05/2019 by French Torres MD at [facility] Left: Knee [employer] 12/06/2028 [id number] / / [id number] Size 6 Left Bi-Cruciate Stabilized Journey Ii Bcs Oxinoim Femoral Component Implanted:Qty: 1 on 04/05/2019 by French Torres MD at [facility] Left: Knee [employer] 12/09/2028 [id number] / / [id number] Size 4 Left Journey Nonporous Tibial Baseplate Implanted:Qty: 1 on 04/05/2019 by French Torres MD at [facility] Left: Knee [employer] 11/01/2028 [id number] / / [id number] Left, Size 3-4, 9mm Journey Ii Bcs Xl Pe A/P 48mm M/L 68 Mm Articular Insert Implanted:Qty: 1 on 04/05/2019 by French Torres MD at [facility] Left: Knee [employer] 01/20/2027 [id number] / / [id number] Procedures Procedure Name Priority Date/Time Associated Diagnosis Comments LIPID PANEL W REFLEX MEASURED LDL Routine 04/09/2021 12:10 PM CDT Lipid screening XR MAMMO MICK BILAT SCREEN Routine 09/07/2020 11:20 AM NIGHT FILLER Visit for screening mammogram COLONOSCOPY 07/14/2018 10:16 AM NIGHT FILLER ANTI HCV Routine 06/22/2018 10:24 AM NIGHT FILLER Need for hepatitis C screening test from Last 3 Months or Most Recently Relevant to Health Maintenance Results * (ABNORMAL) LIPID PANEL W REFLEX MEASURED LDL (04/09/2021 12:10 PM CDT) CHOLESTEROL,TOTAL 208(H) 100 - 199 mg/dL 04/09/2021 12:51 PM CDT [facility] TRIGLYCERIDES 144 <150 mg/dL 04/09/2021 12:51 PM CDT [facility] HDL CHOLESTEROL 66 >40 mg/dL 12:51 PM CDT [facility] NON-HDL CHOLESTEROL 142 <145 mg/dl 04/09/2021 12:51 PM CDT [facility] CHOL/HDL RATIO 3.15 <4.50 04/09/2021 12:51 PM CDT [facility] LDL CHOLESTEROL 113 <=130 mg/dL 04/09/2021 12:51 PM CDT [facility] VLDL CHOLESTEROL 29 mg/dL 04/09/20 12:51 PM CDT [facility] PROVIDER ORDERED STATUS RANDOM 04/09/2021 12:51 PM CDT [facility] Blood BLOOD SPECIMEN / Unknown Venipuncture / Unknown 04/09/2021 12:10 PM CDT 04/09/2021 12:12 PM CDT Rocael Conroy DO CHEMISTRY [facility] [address] [place] [address] * XR MAMMO MICK BILAT SCREEN (09/07/2020 11:20 AM NIGHT FILLER) Anatomical Region Laterality Modality BREASTS, Breast Left, Breast Right Bilateral Mammography Impressions 09/10/2020 7:00 AM NIGHT FILLER ??There is no radiographic evidence for malignancy. ??Recommend annual mammograms. A lay language report of this examination will be provided to the patient. MAMMOGRAM ASSESSMENT: ??ACR 2 Benign Narrative 09/10/2020 7:00 AM NIGHT FILLER XR MAMMO MICK BILAT SCREEN [[id number]] CLINICAL HISTORY: ??This is an asymptomatic 54 y.o. patient. INDICATION FOR EXAM: Mammogram Screening. TECHNIQUE: CC & MLO views were obtained. ??This digital study was evaluated with the assistance of Computer-Aided Detection. Breast Tomosynthesis was used in interpretation. COMPARISON FILMS: Yes 08/24/18 [facility] ?? FINDINGS: ??The breasts are heterogeneously dense, which may obscure small masses. ??No suspicious masses or microcalcifications. ??Benign appearing calcifications within right breast and Post surgical changes within ??left breast. Ortiz GARCIA MAMMO * COLONOSCOPY (07/14/2018 10:16 AM NIGHT FILLER) 07/14/2018 10:1 6 AM NIGHT FILLER Narrative Transcriptions Tod Cantu MD - 07/14/2018 1:14 PM CST Patient Name: Kelly Mcgee Procedure Date: 07/14/2018 Gender: Female Date of : 1965 Admit Type: Ambulatory Procedure: Colonoscopy Proceduralist: Tod Cantu [facility] Indications/Pre-Op Diagnosis: High risk colon cancer surveillance:Personal [...] Cantu MD PROCEDURE ORD * ANTI HCV [22744.2] (06/22/2018 10:24 AM NIGHT FILLER) HEPATITIS C ANTIBODY Non-React sage Non-React sage 06/22/2018 5:59 PM NIGHT FILLER [facility] Comment:Antibodies to HCV no t detected; does not exclude the possibility of exposure to HCV. Blood BLOOD SPECIMEN / Unknown Venipuncture / Unknown 06/22/2018 10:24 AM NIGHT FILLER 06/22/2018 10:30 AM NIGHT FILLER Khoa Abel MD SEND OUTS [facility] [address] [place] [address], from Last 3 Months or Most Recently Relevant to Health Maintenance Advance Directives * Full Code (Latest Code Status on File) Date Activated Date Inactivated Comments 04/07/2019 11:24 PM 04/09/2019 3:34 PM Question Answer Comments Code Status Discussion: Discussed * Full Code Date Activated Date Inactivated Comments 04/05/2019 6:12 AM 04/07/2019 10:02 PM Question Answer Comments Code Status Discussion: Discussed Care Teams Call Center Coordinator Relationship Specialty Start Date End Date Jack Zavala MD [address] [place] [address] PCP - General Family Practice 03/31/22
--- NOTE | 2024-02-19 10:00 | CRLHL7_ITS ---
For Patients: As a result of the Century Cures Act, medical imaging exams and procedure reports are released immediately into your electronic medical record. You may view this report before your referring provider. If you have questions, please contact your health care provider. Indication: Abnormal levels of serum enzymes Technique: CT Abdomen/Pelvis W/ 98CC ISOVUE [address] Please note that all CT scans at this facility use dose modulation, iterative reconstruction, and/or weight-based dosing when appropriate to reduce radiation dose to as low as reasonably achievable. Comparison: 02/09/2022 CT, ultrasound 01/31/2024 Findings: Small intrahepatic cysts are present. The gallbladder is absent. Spleen is unremarkable. Normal adrenal glands. Right renal cortical scarring noted. 2 millimeter stone lower pole right kidney. Normal left kidney. No hydronephrosis. Ureters normal. Bladder distended. Appendix absent. No bowel obstruction. No inflammatory changes. Left hip replacement hardware. No free air, free fluid or adenopathy. There is a cyst within the uncinate process of the pancreas measuring 6.8 millimeters. Atherosclerotic changes. No aneurysm. Degenerative facet arthropathy lower lumbar spine with grade 1 degenerative spondylolisthesis of L3 on L4 and L4 on L5. Degenerative disc disease L4-5 with discogenic sclerosis. Impression: Interval cholecystectomy. No postoperative fluid collection or biliary obstruction. Right renal cortical atrophy with nonobstructing 3 millimeter stone. Subcentimeter intrahepatic cysts without suspicious intrahepatic mass or ascites. Please note that all CT scans at this facility use dose modulation, iterative reconstruction, and/or weight-based dosing when appropriate to reduce radiation dose to as low as reasonably achievable. Dictated by Jack Gray MD @ 02/19/2024 12:46:44 PM (Electronically Signed)
== END 2024-02-19 09:34 | disposition home or self-care (01) ==
LOC: CT 09:33
PROVIDERS: PCP Family Medicine; Visit Provider Family Medicine
DX: R74.8 Abnormal levels of other serum enzymes (principal); N20.0 Calculus of kidney; K76.89 Other specified diseases of liver
CPT/HCPCS: 74177; Q9967

== ENCOUNTER 2024-02-22 07:24 | Outpatient (CLI) | payer BC, SELFPAY ==
--- OUTSIDE RECORDS SUMMARY | 2024-02-22 07:27 | XMS_ITS | Encounter Summary ---
Author Organization [facility] Address [address] [place] [address] Care Team Providers Care Paper Supervisor Name Role Phone Elsewhere, Pcp Primary Care Provider Unavailabl e Reason for Referral * Outpatient (Routine) - Closed Specialty Diagnoses / Procedures Referred By Fawad ruffin Referred To Contact Orthopedic Surgery [facility] Brown D.PJennieMJennie [address] [place] [phone] [facility] Region Referral ID Status Reason Start Date Expiration Date Visits Re quested Visits Authorized [id number] Closed 11/18/2023 05/19/2025 1 1 Scheduling Instructions 11/23/23 at 0800 for 30 min post op Reason for Visit * Reason Comments Post-op Post op fusion left 2nd toe * Outpatient (Routine) - Closed Specialty Diagnoses / Procedures Referred By Fawad ruffin Referred To Contact Orthopedic Surgery [facility] D.PJennieMJennie [address] [place] [phone] [facility] Region Referral ID Status Reason Start Date Expiration Date Visits Re quested Visits Authorized [id number] Closed 10/20/2023 04/20/2025 1 1 Encounter Details Date Type Department Care Team (Late st Contact Info) Description 11/18/2023 8:00 AM CDT Office Visit Department of Orthopedic Surgery in [address] [phone] [facility] D[facility]M. [address] [place] [phone] Follow Up Surgery Exam (Primary Dx) Discharge [...] November 05, 2023. Procedure was performed at [place], [place]. Surgical procedure(s) performed [facility] Ojeda D.P.M.. [...] Assessment for the patient will be ongoing. eKlly will follow with podiatry 10-14 days for [...] Primary documented in this encounter Care Teams Paper Supervisor Relationship Specialty Start Date End Date Elsewhere, Pcp PCP - General Internal Medicine 10/29/23 documented as of this encounter
--- OUTSIDE RECORDS SUMMARY | 2024-02-22 07:27 | XMS_ITS | Clinical Summary ---
Author Organization [facility] Address [place], [place] [address] Care Team Providers Care Well Drill Operator Helper Cable Tool Name Role Phone Jack Zavala MD Primary [...] second interspace of left foot,Toe pain, left [phone] Squared Toed Post op shoe, Small 1 [...] this topic Medical Devices Implanted Type Area Training And Development Project Leader Device Identifier Shelf Expiration Date Model / Serial / Lot Cmnt Bone 40gm Santiago Motta Ab - [id number] Implanted:Qty: 2 on 04/05/2019 by French Torres MD at [facility] Left: Knee [employer] 10/15/2023 [id number] / / [id number] 29mm Oval Michelle Ii Resurfacing Patellar Component Implanted:Qty: 1 on 04/05/2019 by French Torres MD at [facility] Left: Knee [employer] 12/06/2028 [id number] / / [id number] Size 6 Left Bi-Cruciate Stabilized Journey Ii Bcs Oxinoim Femoral Component Implanted:Qty: 1 on 04/05/2019 by French Torres MD at [facility] Left: Knee [employer] 12/09/2028 [id number] / / [id number] Size 4 Left Journey Nonporous Tibial Baseplate Implanted:Qty: 1 on 04/05/2019 by French Torres MD at [facility] Left: Knee [employer] 11/01/2028 [id number] / / [id number] Left, Size 3-4, 9mm Journey Ii Bcs Xl Pe A/P 48mm M/L 68 Mm Articular Insert Implanted:Qty: 1 on 04/05/2019 by French Torres MD at [facility] Left: Knee [employer] 01/20/2027 [id number] / / [id number] Procedures Procedure Name Priority Date/Time Associated Diagnosis Comments LIPID PANEL W REFLEX MEASURED LDL Routine 04/09/2021 12:10 PM CDT Lipid screening XR MAMMO MICK BILAT SCREEN Routine 09/07/2020 11:20 AM ADVERTISING PHOTOGRAPHER Visit for screening mammogram COLONOSCOPY 07/14/2018 10:16 AM ADVERTISING PHOTOGRAPHER ANTI HCV Routine 06/22/2018 10:24 AM ADVERTISING PHOTOGRAPHER Need for hepatitis C screening test from Last 3 Months or Most Recently Relevant to Health Maintenance Results * (ABNORMAL) LIPID PANEL W REFLEX MEASURED LDL (04/09/2021 12:10 PM CDT) CHOLESTEROL,TOTAL 208(H) 100 - 199 mg/dL 04/09/2021 12:51 PM CDT [facility] TRIGLYCERIDES 144 <150 mg/dL 04/09/2021 12:51 PM CDT [facility] HDL CHOLESTEROL 66 >40 mg/dL 12:51 PM CDT [facility] NON-HDL CHOLESTEROL 142 <145 mg/dl 04/09/2021 12:51 PM CDT [facility] CHOL/HDL RATIO 3.15 <4.50 04/09/2021 12:51 PM CDT [facility] LDL CHOLESTEROL 113 <=130 mg/dL 04/09/2021 12:51 PM CDT [facility] VLDL CHOLESTEROL 29 mg/dL 04/09/20 12:51 PM CDT [facility] PROVIDER ORDERED STATUS RANDOM 04/09/2021 12:51 PM CDT [facility] Blood BLOOD SPECIMEN / Unknown Venipuncture / Unknown 04/09/2021 12:10 PM CDT 04/09/2021 12:12 PM CDT Rocael Conroy DO CHEMISTRY [facility] [address] [place] [address] * XR MAMMO MICK BILAT SCREEN (09/07/2020 11:20 AM ADVERTISING PHOTOGRAPHER) Anatomical Region Laterality Modality BREASTS, Breast Left, Breast Right Bilateral Mammography Impressions 09/10/2020 7:00 AM ADVERTISING PHOTOGRAPHER ??There is no radiographic evidence for malignancy. ??Recommend annual mammograms. A lay language report of this examination will be provided to the patient. MAMMOGRAM ASSESSMENT: ??ACR 2 Benign Narrative 09/10/2020 7:00 AM ADVERTISING PHOTOGRAPHER XR MAMMO MICK BILAT SCREEN [[id number]] CLINICAL HISTORY: ??This is an asymptomatic 54 y.o. patient. INDICATION FOR EXAM: Mammogram Screening. TECHNIQUE: CC & MLO views were obtained. ??This digital study was evaluated with the assistance of Computer-Aided Detection. Breast Tomosynthesis was used in interpretation. COMPARISON FILMS: Yes 08/24/18 [facility] ?? FINDINGS: ??The breasts are heterogeneously dense, which may obscure small masses. ??No suspicious masses or microcalcifications. ??Benign appearing calcifications within right breast and Post surgical changes within ??left breast. Ortiz GARCIA MAMMO * COLONOSCOPY (07/14/2018 10:16 AM ADVERTISING PHOTOGRAPHER) 07/14/2018 10:1 6 AM ADVERTISING PHOTOGRAPHER Narrative Transcriptions Tod Cantu MD - 07/14/2018 1:14 PM CST Patient Name: Kelly Mcgee Procedure Date: 07/14/2018 Gender: Female Date of : 1965 Admit Type: Ambulatory Procedure: Colonoscopy Proceduralist: Tod Cantu [facility] Indications/Pre-Op Diagnosis: High risk colon cancer surveillance:Personal [...] Cantu MD PROCEDURE ORD * ANTI HCV [83135.2] (06/22/2018 10:24 AM ADVERTISING PHOTOGRAPHER) HEPATITIS C ANTIBODY Non-React sage Non-React sage 06/22/2018 5:59 PM ADVERTISING PHOTOGRAPHER [facility] Comment:Antibodies to HCV no t detected; does not exclude the possibility of exposure to HCV. Blood BLOOD SPECIMEN / Unknown Venipuncture / Unknown 06/22/2018 10:24 AM ADVERTISING PHOTOGRAPHER 06/22/2018 10:30 AM ADVERTISING PHOTOGRAPHER Khoa Abel MD SEND OUTS [facility] [address] [place] [address], from Last 3 Months or Most Recently Relevant to Health Maintenance Advance Directives * Full Code (Latest Code Status on File) Date Activated Date Inactivated Comments 04/07/2019 11:24 PM 04/09/2019 3:34 PM Question Answer Comments Code Status Discussion: Discussed * Full Code Date Activated Date Inactivated Comments 04/05/2019 6:12 AM 04/07/2019 10:02 PM Question Answer Comments Code Status Discussion: Discussed Care Teams Well Drill Operator Helper Cable Tool Relationship Specialty Start Date End Date Jack Zavala MD [address] [place] [address] PCP - General Family Practice 03/31/22
--- OUTSIDE RECORDS SUMMARY | 2024-02-22 07:27 | XMS_ITS | Encounter Summary ---
Author Organization [facility] Address [address] [place] [address] Care Team Providers Care Chair Finisher Name Role Phone Elsewhere, Pcp Primary Care Provider Unavailabl e Reason for Referral * Outpatient (Routine) - Closed Specialty Diagnoses / Procedures Referred By Fawad ruffin Referred To Contact Orthopedic Surgery [facility] D.P.M. [address] [place] [phone] [facility] D.P.MJennie [address] [place] [phone] Referral ID Status Reason Start Date Expiration Date Visits Re quested Visits Authorized [id number] Closed 12/08/2023 06/08/2025 1 1 Scheduling Instructions Post op, Ingrsarath Toenail Encounter Details Date Type Department Care Team (Late st Contact Info) Description 12/08/2023 Orders Only Department of Orthopedic Surgery in [place], [place] [address] [place] [phone] Jeanie Pina, LJennieP.N. Social History Tobacco [...] on filedocumented in this encounter Care Teams Chair Finisher Relationship Specialty Start Date End Date Elsewhere, Pcp PCP - General Internal Medicine 10/29/23 documented as of this encounter
--- OUTSIDE RECORDS SUMMARY | 2024-02-22 07:27 | XMS_ITS | Encounter Summary ---
Author Organization [facility] Address [address] [place] [address] Care Team Providers Care Student Dean Name Role Phone Elsewhere, Pcp Primary Care Provider Unavailabl e Reason for Referral * Outpatient (Routine) - Closed Specialty Diagnoses / Procedures Referred By Contac t Referred To Contact Orthopedic Surgery [facility] D.P.M. [address] [place] [phone] [facility] Referral ID Status Reason Start Date Expiration Date Visits Re quested Visits Authorized [id number] Closed 11/23/2023 05/24/2025 1 1 Scheduling Instructions Post op * Outpatient (Routine) - Authorized Specialty Diagnoses / Procedures Referred By Contac t Referred To Contact Orthopedic Surgery Diagnoses Fracture Lesser Toe Middle Phalanx Displaced Closed Initial Left [facility] D.P.M. [address] [place] [phone] [facility] Region Referral ID Status Reason Start Date Expiration Date V isits Requested Visits Authorized [id number] Authorized 11/23/2023 05/24/2025 1 1 * Outpatient (Routine) - Closed Specialty Diagnoses / Procedures Referred By Contac t Referred To Contact Diagnoses Fracture Lesser Toe Middle Phalanx Displaced Closed Initial Left Procedures DX Toes Left 3 Views [facility] D.P.M. [address] [place] [phone] [facility] Region Referral ID Status Reason Start Date Expiration Date Visits Re quested Visits Authorized [id number] Closed 11/23/2023 11/22/2024 1 1 Reason for Visit * Reason Comments Post-op S/P ORIF middle phal anx and fusion of the proximal interphalangeal joint left 2nd toe (DOS:11/05/2023) * Outpatient (Routine) - Closed Specialty Diagnoses / Procedures Referred By Fawad ruffin Referred To Contact Orthopedic Surgery [facility] Brown D.P.M. [address] [place] [phone] [facility] Referral ID Status Reason Start Date Expiration Date Visits Re quested Visits Authorized [id number] Closed 11/18/2023 05/19/2025 1 1 Encounter Details Date Type Department Care Team (Late st Contact Info) Description 11/23/2023 8:00 AM CDT Office Visit Department of Orthopedic Surgery in [address] [phone] [facility] Brown D.PJennieMJennie [address] [place] [phone] Fracture Lesser Toe Middle Phalanx Displaced [...] November 05, 2023. Procedure was performed at [place], [place]. Surgical procedure(s) performed [facility] Ojeda D.P.M.. [...] Left documented in this encounter Care Teams Student Dean Relationship Specialty Start Date End Date Elsewhere, Pcp PCP - General Internal Medicine 10/29/23 documented as of this encounter
--- OUTSIDE RECORDS SUMMARY | 2024-02-22 07:27 | XMS_ITS | Encounter Summary ---
Author Organization [facility] Address [address] [place] [address] Care Team Providers Care Chief Procurement Officer Name Role Phone Elsewhere, Pcp Primary Care Provider Unavailabl e Reason for Visit * Reason Onset Date Comments Nurse Assessment 12/24/2023 Post op questio n for podiatry Encounter Details Date Type Department Care Team (Latest Contact Info) Description 12/24/2023 Clinical Communication Department of Orthopedic Surgery in [place], [place] [address] [place] [phone] Mercy Hernández am, D.P.M. [address] [place] [phone] Nurse Assessment (Post op question for podiatry) [...] on filedocumented in this encounter Care Teams Chief Procurement Officer Relationship Specialty Start Date End Date Elsewhere, Pcp PCP - General Internal Medicine 10/29/23 documented as of this encounter
--- OUTSIDE RECORDS SUMMARY | 2024-02-22 07:27 | XMS_ITS | Encounter Summary ---
Author Organization [facility] Address [address] [place] [address] Care Team Providers Care Rehabilitation Assistant Name Role Phone Elsewhere, Pcp Primary Care Provider Unavailabl e Reason for Visit * Reason Comments Follow-up Left 2nd Toe Fractur e Follow Up Follow-up Right 5th Toe, Ingro wn Toenail * Outpatient (Routine) - Closed Specialty Diagnoses / Procedures Referred By Fawad t Referred To Contact Orthopedic Surgery [facility] Brown D.PJennieM. [address] [place] [phone] [facility] D.PJennieMJennie [address] [place] [phone] Referral ID Status Reason Start Date Expiration Date Visits Re quested Visits Authorized [id number] Closed 12/08/2023 06/08/2025 1 1 Encounter Details Date Type Department Care Team (Late st Contact Info) Description 01/04/2024 8:30 AM CDT Office Visit Department of Orthopedic Surgery in [place], [place] [address] [place] [phone] [facility] Brown D.PJennieM. [address] [place] [phone] Ingrown Nail (Primary Dx) Discharge [...] the nail bed in total using a Baldwin elevator excised from distal to proximal in [...] care instructions were discussed and a printed [facility] postoperative instructions provided. If she has any concern she understands she cansent photos through portal. She states she has photos from previous foot problems and would like tosend those for her medical history. documented in this encounter Plan of Treatment Not on file documented as of this encounter Visit Diagnoses Diagnosis Ingrown Nail- Primary documented in this encounter Care Teams Rehabilitation Assistant Relationship Specialty Start Date End Date Elsewhere, Pcp PCP - General Internal Medicine 10/29/23 documented as of this encounter
--- OUTSIDE RECORDS SUMMARY | 2024-02-22 07:27 | XMS_ITS | Encounter Summary ---
Author Organization [facility] Address [address] [place] [address] Care Team Providers Care Formal Wear Rental Clerk Name Role Phone Elsewhere, Pcp Primary Care Provider Unavailabl e Reason for Referral * Outpatient (Routine) - Closed Specialty Diagnoses / Procedures Referred By Fawad ruffin Referred To Contact Diagnoses Follow Up Surgery Exam Fracture Lesser Toe Middle Phalanx Displaced Closed Initial Left Procedures DX Toes Left 3 Views [facility] D.PJennieMJennie [address] [place] [phone] [facility] Region Referral ID Status Reason Start Date Expiration Date Visits Re quested Visits Authorized [id number] Closed 12/08/2023 12/07/2024 1 1 Reason for Visit * Reason Comments Post-op S/P ORIF middle phal anx and fusion of the proximal interphalangeal joint left 2nd toe (DOS:11/05/2023) * Outpatient (Routine) - Closed Specialty Diagnoses / Procedures Referred By Fawad ruffin Referred To Contact Orthopedic Surgery [facility] Brown D.PJennieMJennie [address] [place] [phone] [facility] Referral ID Status Reason Start Date Expiration Date Visits Re quested Visits Authorized [id number] Closed 11/23/2023 05/24/2025 1 1 Encounter Details Date Type Department Care Team ([facility] st Contact Info) Description 12/08/2023 1:00 PM CDT Office Visit Department of Orthopedic Surgery in [place], [place] [address] [place] [phone] [facility] Brown D.P.M. [address] [place] [phone] Follow Up Surgery Exam (Primary Dx); Fracture [...] November 05, 2023. Procedure was performed at [place], [place]. Surgical procedure(s) performed [facility] Ojeda D.P.M.. [...] Left documented in this encounter Care Teams Formal Wear Rental Clerk Relationship Specialty Start Date End Date Elsewhere, Pcp PCP - General Internal Medicine 10/29/23 documented as of this encounter
--- OUTSIDE RECORDS SUMMARY | 2024-02-22 07:27 | XMS_ITS ---
Author Organization [facility] Address [address] [place] [address] Care Team Providers Care Manager Critical Care Unit Name Role Phone Unavailable Unavailable Unavailable Surgery Details Not on file Complications Check Surgery Details section. Procedure Estimated Blood Loss Check Surgery Details section. Procedure Findings Check Surgery Details section. Procedure Specimens Taken Check Surgery Details section.
--- OUTSIDE RECORDS SUMMARY | 2024-02-22 07:27 | XMS_ITS | Referral Summary ---
Author Organization [facility] Address [address] [place] [address] Care Team Providers Care Race Engine Builder Name Role Phone Elsewhere, Pcp Primary Care Provider Unavailabl e Source Comments Patient records contain information from all sites at [facility]. For routine questions regarding patient records, call [phone] during business hours, M-F 8:00 AM - 5:00 PM Central Time. Record requests for emergency care only can be directed to [phone] at any time.[facility] Encounters Date Type Department Care Team Description 01/25/2024 Clinical Communication Primary Care on Demand at [address] [phone] Aba Santos M.D. 01/20/2024 Clinical Communication Primary Care on Demand at [address] [phone] Aba Santos M.D. 01/04/2024 7:50 AM CDT - 01/04/2024 11:59 PM CDT Hospital Encounter Department of Radiology in [address] [phone] Mercy Hernández am, D.PBradley Swelling Toe Discharge Disposition: Home or Self Care 01/04/2024 8:30 AM CDT Office Visit Department of Orthopedic Surgery in [address] [phone] Mercy Hernández am, D.PJennieMJennie Ingrown Nail (Primary Dx) Discharge Disposition: Home or Self Care 12/28/2023 Orders Only Department of Orthopedic Surgery in [address] [phone] Mercy Hernández am, D.P.M. Swelling Toe (Primary Dx) 12/24/2023 Clinical Communication Department of Orthopedic Surgery in [address] [phone] Mercy Hernández am, D.P.M. Nurse Assessment (Post op question for podiatry) 12/08/2023 Orders Only Department of Orthopedic Surgery in [address] [phone] Jeanie Pina L.P.N. 12/08/2023 1:06 PM CDT - 12/08/2023 11:59 PM CDT Hospital Encounter Department of Radiology in [address] [phone] Mercy Hernández am, D.P.MJennie Follow Up Surgery Exam; Fracture Lesser Toe Middle Phalanx Displaced Closed Initial Left Discharge Disposition: Home or Self Care 12/08/2023 1:00 PM CDT Office Visit Department of Orthopedic Surgery in [address] [phone] Mercy Hernández am, D.PJennieMJennie Follow Up Surgery Exam (Primary Dx); Fracture Lesser Toe Middle Phalanx Displaced Closed Initial Left Discharge Disposition: Home or Self Care 11/23/2023 8:24 AM CDT - 11/23/2023 11:59 PM CDT Hospital Encounter Department of Radiology in [address] [phone] Mercy Hernández am, D.PBradley Fracture Lesser Toe Middle Phalanx Displaced Closed Initial Left Discharge Disposition: Home or Self Care 11/23/2023 8:00 AM CDT Office Visit Department of Orthopedic Surgery in [address] [phone] Mercy Hernández am, D.P.M. Fracture Lesser Toe [...] on file Medical Devices Implanted Type Area Training Consultant Device Identifier Shelf Expiration Date Model / Serial / Lot Scrw St Fthrd Nlck Sld 2.0x6 - [id number] Implanted:Qty: 2 on 11/05/2023 by Mercy Hogan D.P.MJennie at [facility] Hardware e.g. pins/screws/r ods Depuy Synthes 401.806.96 / / 24.[address] Fthrd Nlck Sld 2.0x7 - [id number] Implanted:Qty: 1 on 11/05/2023 by Mercy Hogan D.P.MJennie at [facility] Hardware e.g. pins/screws/r ods Depuy Synthes 401.807.96 / / 24.0 19 Pl[address] Hnd Lcd 4h Lck 2.4x24 - [id number] Implanted:Qty: 1 on 11/05/2023 by Mercy Hogan D.P.MJennie at [facility] Hardware e.g. pins/screws/r ods Depuy Synthes [...] BILATERAL WITH TOMOSYNTHESIS Routine 09/07/2020 11:20 AM LAUNCH CHECK OUT from Last 3 Months or Most Recently [...] DI AGNOSTIC IMAGING PROCEDURES * Thyroid Function [place] (10/29/2023 1:04 PM CDT) TSH, Sensitive 2.1 0.3 - 4.2 mIU/L 10/29/2023 6:29 PM CDT OWAT Blood (Blood, Venous) 10/29/2023 1:04 PM CDT 10/29/2023 5:47 PM CDT Stephen Givens APRN.N.Rogelio, D .N.P. LAB BLOOD [facility] [address] [place] [address], [facility] OWAT [facility] [place] [address] [place] [address] * (ABNORMAL) Basic Metabolic Panel (10/29/2023 1:04 [...] Mercy Brown D.P.M. LAB BL OOD ADD-ON [facility] [address] [place] [address], [place] OWAT [facility] [place] [address] [place] [address] from Last 3 Months or Most Recently Relevant to Health Maintenance Advance Directives For more information, please contact: [phone] * Full Code (Latest Code Status on File) Date Activated Date Inactivated Comments 11/05/2023 9:43 AM 11/05/2023 12:56 PM Question Answer Comments Full Code: Discussed * Full Code Date Activated Date Inactivated Comments 11/05/2023 7:38 AM 11/05/2023 9:43 AM Question Answer Comments Full Code: Discussed Care Teams Race Engine Builder Relationship Specialty Start Date End Date Elsewhere, Pcp PCP - General Internal Medicine 10/29/23
--- OUTSIDE RECORDS SUMMARY | 2024-02-22 07:27 | XMS_ITS | Encounter Summary ---
Author Organization [facility] Address [address] [place] [address] Care Team Providers Care Real Estate Salesperson Name Role Phone Elsewhere, Pcp Primary Care Provider Unavailabl e Encounter Details Date Type Department Care Team (Late st Contact Info) Description 01/20/2024 Clinical Communication Primary Care on Demand at [facility] [address] [place] [address] Aba Santos M.D. [address] [place] [address] Social History Tobacco Use Types [...] on filedocumented in this encounter Care Teams Real Estate Salesperson Relationship Specialty Start Date End Date Elsewhere, Pcp PCP - General Internal Medicine 10/29/23 documented as of this encounter
--- OUTSIDE RECORDS SUMMARY | 2024-02-22 07:27 | XMS_ITS | Encounter Summary ---
Author Organization [facility] Address [address] [place] [address] Care Team Providers Care Flight Instructor Name Role Phone Elsewhere, Pcp Primary Care Provider Unavailabl e Encounter Details Date Type Department Care Team (Late st Contact Info) Description 01/25/2024 Clinical Communication Primary Care on Demand at [facility] [address] [place] [address] Aba Santos M.D. [address] [place] [address] Social History Tobacco Use Types [...] on filedocumented in this encounter Care Teams Flight Instructor Relationship Specialty Start Date End Date Elsewhere, Pcp PCP - General Internal Medicine 10/29/23 documented as of this encounter
--- OUTSIDE RECORDS SUMMARY | 2024-02-22 07:27 | XMS_ITS | Encounter Summary ---
Author Organization [facility] Address [address] [place] [address] Care Team Providers Care Manager Risk Management Name Role Phone Elsewhere, Pcp Primary Care Provider Unavailabl e Reason for Referral * Outpatient (Routine) - Closed Specialty Diagnoses / Procedures Referred By Fawad ruffin Referred To Contact Diagnoses Follow Up Surgery Exam Fracture Lesser Toe Middle Phalanx Displaced Closed Initial Left Procedures DX Toes Left 3 Views Mercy Brown D.P.MJennie [address] [place] [address] [facility] Region Referral ID Status Reason Start Date Expiration Date Visits Re quested Visits Authorized [id number] Closed 12/08/2023 12/07/2024 1 1 Reason for Visit * Outpatient (Routine) - Closed Specialty Diagnoses / Procedures Referred By Fawad ruffin Referred To Contact Diagnoses Follow Up Surgery Exam Fracture Lesser Toe Middle Phalanx Displaced Closed Initial Left Procedures DX Toes Left 3 Views Mercy Brown D.P.MJennie [address] [place] [address] [facility] Region Referral ID Status Reason Start Date Expiration Date Visits Re quested Visits Authorized [id number] Closed 12/08/2023 12/07/2024 1 1 Encounter Details Date Type Department Care Team (Latest Contact Info) Description 12/08/2023 1:06 PM CDT - 12/08/2023 11:59 PM CDT Hospital Encounter Department of Radiology in [place], [place] [address] [place] [phone] Mercy Najera D.P.M. [address] [place] [phone] Follow Up Surgery Exam; Fracture Lesser Toe [...] Left documented in this encounter Care Teams Manager Risk Management Relationship Specialty Start Date End Date Elsewhere, Pcp PCP - General Internal Medicine 10/29/23 documented as of this encounter
--- OUTSIDE RECORDS SUMMARY | 2024-02-22 07:27 | XMS_ITS | Encounter Summary ---
Author Organization [facility] Address [address] [place] [address] Care Team Providers Care Dean Of Graduate Studies Name Role Phone Elsewhere, Pcp Primary Care Provider Unavailabl e Reason for Referral * Outpatient (Routine) - Closed Specialty Diagnoses / Procedures Referred By Fawad ruffin Referred To Contact Diagnoses Swelling Toe Procedures DX Toes Left 3 Views Mercy Brown D.PJennieMJennie [address] [place] [address] [facility] Referral ID Status Reason Start Date Expiration Date Visits Re quested Visits Authorized [id number] Closed 12/28/2023 12/27/2024 1 1 Encounter Details Date Type Department Care Team (Late st Contact Info) Description 12/28/2023 Orders Only Department of Orthopedic Surgery in [place], [place] [address] [place] [address] Mercy Brown D.PJennieMJennie [address] [place] [address] Swelling Toe (Primary Dx) Social [...] Toe documented in this encounter Care Teams Dean Of Graduate Studies Relationship Specialty Start Date End Date Elsewhere, Pcp PCP - General Internal Medicine 10/29/23 documented as of this encounter
--- OUTSIDE RECORDS SUMMARY | 2024-02-22 07:27 | XMS_ITS | Clinical Summary ---
Author Organization [facility] Address [address] [place] [address] Care Team Providers Care Ethanol Operations Manager Name Role Phone Elsewhere, Pcp Primary Care Provider Unavailabl e Source Comments Patient records contain information from all sites at [facility]. For routine questions regarding patient records, call [phone] during business hours, M-F 8:00 AM - 5:00 PM Central Time. Record requests for emergency care only can be directed to [phone] at any time.[facility] Allergies Active Allergy Reactions Criticality Noted [...] Communication Primary Care on Demand at [address] [phone] bAa Santos M.D. 01/20/2024 Clinical Communication Primary Care on Demand at [address] [phone] Aba Santos M.D. 01/04/2024 8:30 AM CDT Office Visit Department of Orthopedic Surgery in [address] [phone] Mercy Hernández am, D.PJennieMJennie Ingrown Nail (Primary Dx) Discharge Disposition: Home or Self Care 01/04/2024 7:50 AM CDT - 01/04/2024 11:59 PM CDT Hospital Encounter Department of Radiology in [address] [phone] Mercy Hernández am, D.PJennieMJennie Swelling Toe Discharge Disposition: Home or Self Care 12/28/2023 Orders Only Department of Orthopedic Surgery in [place] [address] [phone] Mercy Hernández am, D.P.M. Swelling Toe (Primary Dx) 12/24/2023 Clinical Communication Department of Orthopedic Surgery in [address] [phone] Mercy Hernández am, D.P.M. Nurse Assessment (Post op question for podiatry) 12/08/2023 1:06 PM CDT - 12/08/2023 11:59 PM CDT Hospital Encounter Department of Radiology in [address] [phone] Mercy Hernández am, D.PBradley Follow Up Surgery Exam; Fracture Lesser Toe Middle Phalanx Displaced Closed Initial Left Discharge Disposition: Home or Self Care 12/08/2023 1:00 PM CDT Office Visit Department of Orthopedic Surgery in [address] [phone] Mercy Hernández am, D.PBradley Follow Up Surgery Exam (Primary Dx); Fracture Lesser Toe Middle Phalanx Displaced Closed Initial Left Discharge Disposition: Home or Self Care 12/08/2023 Orders Only Department of Orthopedic Surgery in [address] [phone] Jeanie Pina L.P.NJennie 11/23/2023 8:24 AM CDT - 11/23/2023 11:59 PM CDT Hospital Encounter Department of Radiology in [address] [phone] Meryc Henrández am, D.PBradley Fracture Lesser Toe Middle Phalanx Displaced Closed Initial Left Discharge Disposition: Home or Self Care 11/23/2023 8:00 AM CDT Office Visit Department of Orthopedic Surgery in [address] [phone] Mercy Hernández am, D.PBradley Fracture Lesser Toe [...] 06/02/2022, 06/26/2020 Medical Devices Implanted Type Area Commissions Coordinator Device Identifier Shelf Expiration Date Model / Serial / Lot Scrw St Fthrd Nlck Sld 2.0x6 - [id number] Implanted:Qty: 2 on 11/05/2023 by Mercy Hogan D.P.MJennie at [facility] Hardware e.g. pins/screws/r ods Depuy Synthes [id number] / / 02.04.24.[address] Fthrd Nlck Sld 2.0x7 - [id number] Implanted:Qty: 1 on 11/05/2023 by Mercy Hogan D.P.MJennie at [facility] Hardware e.g. pins/screws/r ods Depuy Synthes [id number] / / .04.24.0 19 Plt Hnd Lcd 4h Lck 2.4x24 - [id number] Implanted:Qty: 1 on 11/05/2023 by Mercy Hogan D.P.MJennie at [facility] Hardware e.g. pins/screws/r ods Depuy Synthes [...] BILATERAL WITH TOMOSYNTHESIS Routine 09/07/2020 11:20 AM CERAMIC DESIGNER from Last 3 Months or Most Recently [...] DI AGNOSTIC IMAGING PROCEDURES * Thyroid Function [place] (10/29/2023 1:04 PM CDT) TSH, Sensitive 2.1 0.3 - 4.2 mIU/L 10/29/2023 6:29 PM CDT OWAT Blood (Blood, Venous) 10/29/2023 1:04 PM CDT 10/29/2023 5:47 PM CDT Scotty Givens APRNN.PJennie, D .N.P. LAB BLOOD ADD-ON [facility] [address] [place] [address], [place] [facility] [place] [address] [place] [address] * (ABNORMAL) Basic Metabolic Panel (10/29/2023 1:04 [...] Mercy Brown D.P.M. LAB BL OOD ADD-ON [facility] [address] [place] [address], [place] [facility] [facility] [place] [address] [place] [address] from Last 3 Months or Most Recently Relevant to Health Maintenance Advance Directives For more information, please contact: [phone] * Full Code (Latest Code Status on File) Date Activated Date Inactivated Comments 11/05/2023 9:43 AM 11/05/2023 12:56 PM Question Answer Comments Full Code: Discussed * Full Code Date Activated Date Inactivated Comments 11/05/2023 7:38 AM 11/05/2023 9:43 AM Question Answer Comments Full Code: Discussed Care Teams Ethanol Operations Manager Relationship Specialty Start Date End Date Elsewhere, Pcp PCP - General Internal Medicine 10/29/23
--- OUTSIDE RECORDS SUMMARY | 2024-02-22 07:27 | XMS_ITS | Encounter Summary ---
Author Organization [facility] Address [address] [place] [address] Care Team Providers Care Rn Case Mgr Name Role Phone Elsewhere, Pcp Primary Care Provider Unavailabl e Reason for Referral * Outpatient (Routine) - Closed Specialty Diagnoses / Procedures Referred By Penelopeac t Referred To Contact Diagnoses Swelling Toe Procedures DX Toes Left 3 Views Mercy Brown D.P.M. [address] [place] [phone] [facility] Referral ID Status Reason Start Date Expiration Date Visits Re quested Visits Authorized [id number] Closed 12/28/2023 12/27/2024 1 1 Reason for Visit * Outpatient (Routine) - Closed Specialty Diagnoses / Procedures Referred By Fawad t Referred To Contact Diagnoses Swelling Toe Procedures DX Toes Left 3 Views Mercy Brown D.P.MJennie [address] [place] [phone] [facility] Referral ID Status Reason Start Date Expiration Date Visits Re quested Visits Authorized [id number] Closed 12/28/2023 12/27/2024 1 1 Encounter Details Date Type Department Care Team (Latest Contact Info) Description 01/04/2024 7:50 AM CDT - 01/04/2024 11:59 PM CDT Hospital Encounter Department of Radiology in [address] [phone] Mercy Najera D.P.M. [address] [place] [phone] Swelling Toe Discharge Disposition: Home or Self [...] Toe documented in this encounter Care Teams Rn Case Mgr Relationship Specialty Start Date End Date Elsewhere, Pcp PCP - General Internal Medicine 10/29/23 documented as of this encounter
--- OUTSIDE RECORDS SUMMARY | 2024-02-22 07:27 | XMS_ITS | Encounter Summary ---
Author Organization [facility] Address [address] [place] [address] Care Team Providers Care Fish Protector Name Role Phone Elsewhere, Pcp Primary Care Provider Unavailabl e Reason for Referral * Outpatient (Routine) - Closed Specialty Diagnoses / Procedures Referred By Contac t Referred To Contact Diagnoses Fracture Lesser Toe Middle Phalanx Displaced Closed Initial Left Procedures DX Toes Left 3 Views Mercy Brown D.PJennieM. [address] [place] [address] [facility] Referral ID Status Reason Start Date Expiration Date Visits Re quested Visits Authorized [id number] Closed 11/23/2023 11/22/2024 1 1 Reason for Visit * Outpatient (Routine) - Closed Specialty Diagnoses / Procedures Referred By Contac t Referred To Contact Diagnoses Fracture Lesser Toe Middle Phalanx Displaced Closed Initial Left Procedures DX Toes Left 3 Views Mercy Brown D.P.M. [address] [place] [address] [facility] Referral ID Status Reason Start Date Expiration Date Visits Re quested Visits Authorized [id number] Closed 11/23/2023 11/22/2024 1 1 Encounter Details Date Type Department Care Team (Latest Contact Info) Description 11/23/2023 8:24 AM CDT - 11/23/2023 11:59 PM CDT Hospital Encounter Department of Radiology in [place], [place] [address] [place] [phone] Mercy Najera D.P.M. [address] [place] [address] Fracture Lesser Toe Middle Phalanx [...] Left documented in this encounter Care Teams Fish Protector Relationship Specialty Start Date End Date Elsewhere, Pcp PCP - General Internal Medicine 10/29/23 documented as of this encounter
--- NOTE | 2024-02-22 09:16 | W.ANESCHARGE ---
Anesthesia Charges Start Date/Time Anesthesia Start Date: 02/22/24 Anesthesia Start Time: 08:40 Stop Date/Time Anesthesia Stop Date: 02/22/24 Anesthesia Stop Time: 09:13
--- NOTE | 2024-02-22 10:25 | W.ANESCHARGE ---
Anesthesia Charges Start Date/Time Anesthesia Start Date: 02/22/24 Anesthesia Start Time: 08:40 Stop Date/Time Anesthesia Stop Date: 02/22/24 Anesthesia Stop Time: 09:13
== END 2024-02-22 07:25 | disposition home or self-care (01) ==
LOC: OP CLINIC 07:25
PROVIDERS: PCP Family Medicine; Visit Provider Internal Medicine
DX: Z12.11 Encounter for screening for malignant neoplasm of colon (principal); K63.5 Polyp of colon; K64.8 Other hemorrhoids; K57.30 Diverticulosis of large intestine without perforation or abscess without bleeding
CPT/HCPCS: 00811; 45380; 88305; J2704

== ENCOUNTER 2024-03-03 13:26 | Outpatient (CLI) | payer BC, SELFPAY ==
--- OUTSIDE RECORDS SUMMARY | 2024-03-03 13:29 | XMS_ITS ---
Author Organization [facility] Address [address] [place] [address] Care Team Providers Care Human Capital Consultant Name Role Phone Unavailable Unavailable Unavailable Surgery Details Not on file Complications Check Surgery Details section. Procedure Estimated Blood Loss Check Surgery Details section. Procedure Findings Check Surgery Details section. Procedure Specimens Taken Check Surgery Details section.
--- OUTSIDE RECORDS SUMMARY | 2024-03-03 13:29 | XMS_ITS | Encounter Summary ---
Author Organization [facility] Address [address] [place] [address] Care Team Providers Care Rod Buster Helper Name Role Phone Elsewhere, Pcp Primary Care Provider Unavailabl e Reason for Referral * Outpatient (Routine) - Closed Specialty Diagnoses / Procedures Referred By Fawad ruffin Referred To Contact Diagnoses Swelling Toe Procedures DX Toes Left 3 Views Mercy Brown D.PJennieMJennie [address] [place] [address] [facility] Referral ID Status Reason Start Date Expiration Date Visits Re quested Visits Authorized [id number] Closed 12/28/2023 12/27/2024 1 1 Encounter Details Date Type Department Care Team (Late st Contact Info) Description 12/28/2023 Orders Only Department of Orthopedic Surgery in [place], [place] [address] [place] [address] Mercy Brown D.PJennieMJennie [address] [place] [address] Swelling Toe (Primary Dx) Social [...] Toe documented in this encounter Care Teams Rod Buster Helper Relationship Specialty Start Date End Date Elsewhere, Pcp PCP - General Internal Medicine 10/29/23 documented as of this encounter
--- OUTSIDE RECORDS SUMMARY | 2024-03-03 13:29 | XMS_ITS | Encounter Summary ---
Author Organization [facility] Address [address] [place] [address] Care Team Providers Care Social Sciences Lecturer Name Role Phone Elsewhere, Pcp Primary Care Provider Unavailabl e Encounter Details Date Type Department Care Team (Late st Contact Info) Description 01/25/2024 Clinical Communication Primary Care on Demand at [facility] [address] [place] [address] Aba Santos M.D. [address] [place] [address] Social History Tobacco Use Types [...] on filedocumented in this encounter Care Teams Social Sciences Lecturer Relationship Specialty Start Date End Date Elsewhere, Pcp PCP - General Internal Medicine 10/29/23 documented as of this encounter
--- OUTSIDE RECORDS SUMMARY | 2024-03-03 13:29 | XMS_ITS | Referral Summary ---
Author Organization [facility] Address [address] [place] [address] Care Team Providers Care Pet Care Worker Name Role Phone Elsewhere, Pcp Primary Care Provider Unavailabl e Source Comments Patient records contain information from all sites at [facility]. For routine questions regarding patient records, call [phone] during business hours, M-F 8:00 AM - 5:00 PM Central Time. Record requests for emergency care only can be directed to [phone] at any time.[facility] Encounters Date Type Department Care Team Description 01/25/2024 Clinical Communication Primary Care on Demand at [address] [phone] Aba Santos M.D. 01/20/2024 Clinical Communication Primary Care on Demand at [address] [phone] Aba Santos M.D. 01/04/2024 7:50 AM CDT - 01/04/2024 11:59 PM CDT Hospital Encounter Department of Radiology in [address] [phone] Mercy Hernández am, D.PBradley Swelling Toe Discharge Disposition: Home or Self Care 01/04/2024 8:30 AM CDT Office Visit Department of Orthopedic Surgery in [address] [phone] Mercy Hernández am, D.PJennieMJennie Ingrown Nail (Primary Dx) Discharge Disposition: Home or Self Care 12/28/2023 Orders Only Department of Orthopedic Surgery in [address] [phone] Mercy Hernández am, D.PBradley Swelling Toe (Primary Dx) 12/24/2023 Clinical Communication Department of Orthopedic Surgery in [address] [phone] Mercy Hernández am, D.P.M. Nurse Assessment (Post op question for podiatry) 12/08/2023 Orders Only Department of Orthopedic Surgery in [address] [phone] Jeanie Pina L.P.N. 12/08/2023 1:06 PM CDT - 12/08/2023 11:59 PM CDT Hospital Encounter Department of Radiology in [address] [phone] Mercy Hernández am, D.PBradley Follow Up Surgery Exam; Fracture Lesser Toe Middle Phalanx Displaced Closed Initial Left Discharge Disposition: Home or Self Care 12/08/2023 1:00 PM CDT Office Visit Department of Orthopedic Surgery in [address] [phone] Mercy Hernández am, D.PJennieMJennie Follow Up Surgery [...] on file Medical Devices Implanted Type Area Visual Lead Device Identifier Shelf Expiration Date Model / Serial / Lot Scrw St Fthrd Nlck Sld 2.0x6 - [id number] Implanted:Qty: 2 on 11/05/2023 by ShyanneMercy Ramirez, FabianPJennieMJennie at [facility] Hardware e.g. pins/screws/r ods Dep[employer]ynthes [id number] / / ..24.[address] Fthrd Nlck Sld 2.0x7 - [id number] Implanted:Qty: 1 on 11/05/2023 by Mercy Hogan D.P.M. at [facility] Hardware e.g. pins/screws/r ods [employer]ynthe[employer] [id number] / / ..24.0 19 Plt Hnd Lcd 4h Lck 2.4x24 - [id number] Implanted:Qty: 1 on 11/05/2023 by Mercy Hogan D.P.M. at [facility] Hardware e.g. pins/screws/r ods [employer] 449.931 [...] BILATERAL WITH TOMOSYNTHESIS Routine 09/07/2020 11:20 AM FANS CLERK from Last 3 Months or Most Recently Relevant to Health Maintenance Results * DX Toes Left 3 Views (01/04/2024 8:05 AM CDT) Only the most recent of2 resultswithin the time period is included. Anatomical [...] DI AGNOSTIC IMAGING PROCEDURES * Thyroid Function [place] (10/29/2023 1:04 PM CDT) TSH, Sensitive 2.1 0.3 - 4.2 mIU/L 10/29/2023 6:29 PM CDT OWAT Blood (Blood, Venous) 10/29/2023 1:04 PM CDT 10/29/2023 5:47 PM CDT Jailene Connors APRN, C.N.P., D .N.P. LAB BLOOD ADD-ON [facility] [address] [place] [address], [place] OWAT [facility] [place] [address] [place] [address] * (ABNORMAL) Basic Metabolic Panel (10/29/2023 1:04 [...] Mercy Brown D.P.M. LAB BL OOD [facility] [address] [place] [address], [facility] OWAT [facility] [place] [address] [place] [address] from Last 3 Months or Most Recently Relevant to Health Maintenance Advance Directives For more information, please contact: [phone] * Full Code (Latest Code Status on File) Date Activated Date Inactivated Comments 11/05/2023 9:43 AM 11/05/2023 12:56 PM Question Answer Comments Full Code: Discussed * Full Code Date Activated Date Inactivated Comments 11/05/2023 7:38 AM 11/05/2023 9:43 AM Question Answer Comments Full Code: Discussed Care Teams Pet Care Worker Relationship Specialty Start Date End Date Elsewhere, Pcp PCP - General Internal Medicine 10/29/23
--- OUTSIDE RECORDS SUMMARY | 2024-03-03 13:29 | XMS_ITS | Encounter Summary ---
Author Organization [facility] Address [address] [place] [address] Care Team Providers Care Electric Scoop Operator Name Role Phone Elsewhere, Pcp Primary Care Provider Unavailabl e Encounter Details Date Type Department Care Team (Late st Contact Info) Description 01/20/2024 Clinical Communication Primary Care on Demand at [facility] [address] [place] [address] Aba Santos M.D. [address] [place] [address] Social History Tobacco Use Types [...] on filedocumented in this encounter Care Teams Electric Scoop Operator Relationship Specialty Start Date End Date Elsewhere, Pcp PCP - General Internal Medicine 10/29/23 documented as of this encounter
--- OUTSIDE RECORDS SUMMARY | 2024-03-03 13:29 | XMS_ITS | Encounter Summary ---
Author Organization [facility] Address [address] [place] [address] Care Team Providers Care Plant Maintenance Worker Name Role Phone Elsewhere, Pcp Primary Care Provider Unavailabl e Reason for Visit * Reason Comments Follow-up Left 2nd Toe Fractur e Follow Up Follow-up Right 5th Toe, Ingro wn Toenail * Outpatient (Routine) - Closed Specialty Diagnoses / Procedures Referred By Fawad t Referred To Contact Orthopedic Surgery Mercy Brown D.PJennieM. [address] [place] [address] Mercy Brown D.PJennieMJennie [address] [place] [address] Referral ID Status Reason Start Date Expiration Date Visits Re quested Visits Authorized [id number] Closed 12/08/2023 06/08/2025 1 1 Encounter Details Date Type Department Care Team (Late st Contact Info) Description 01/04/2024 8:30 AM CDT Office Visit Department of Orthopedic Surgery in [place], [place] [address] [place] [phone] Mercy Brown D.PJennieM. [address] [place] [address] Ingrown Nail (Primary Dx) Discharge [...] the nail bed in total using a [place] elevator excised from distal to proximal in [...] care instructions were discussed and a printed [facility] postoperative instructions provided. If she has any concern she understands she cansent photos through portal. She states she has photos from previous foot problems and would like tosend those for her medical history. documented in this encounter Plan of Treatment Not on file documented as of this encounter Visit Diagnoses Diagnosis Ingrown Nail- Primary documented in this encounter Care Teams Plant Maintenance Worker Relationship Specialty Start Date End Date Elsewhere, Pcp PCP - General Internal Medicine 10/29/23 documented as of this encounter
--- OUTSIDE RECORDS SUMMARY | 2024-03-03 13:29 | XMS_ITS | Encounter Summary ---
Author Organization [facility] Address [address] [place] [address] Care Team Providers Care Animal [facility] Office Supervisor Name Role Phone Elsewhere, Pcp Primary Care Provider Unavailabl e Reason for Referral * Outpatient (Routine) - Closed Specialty Diagnoses / Procedures Referred By Fawad ruffin Referred To Contact Diagnoses Follow Up Surgery Exam Fracture Lesser Toe Middle Phalanx Displaced Closed Initial Left Procedures DX Toes Left 3 Views Mercy Brown D.P.MJennie [address] [place] [address] [facility] Region Referral ID Status Reason Start Date Expiration Date Visits Re quested Visits Authorized [id number] Closed 12/08/2023 12/07/2024 1 1 Reason for Visit * Outpatient (Routine) - Closed Specialty Diagnoses / Procedures Referred By Fawad ruffin Referred To Contact Diagnoses Follow Up Surgery Exam Fracture Lesser Toe Middle Phalanx Displaced Closed Initial Left Procedures DX Toes Left 3 Views Mercy Brown D.P.MJennie [address] [place] [address] [facility] Region Referral ID Status Reason Start Date Expiration Date Visits Re quested Visits Authorized [id number] Closed 12/08/2023 12/07/2024 1 1 Encounter Details Date Type Department Care Team (Latest Contact Info) Description 12/08/2023 1:06 PM CDT - 12/08/2023 11:59 PM CDT Hospital Encounter Department of Radiology in [place], [place] [address] [place] [phone] Mercy Najera D.P.M. [address] [place] [phone] Follow Up Surgery Exam; Fracture Lesser Toe [...] Left documented in this encounter Care Teams Animal [facility] Office Supervisor Relationship Specialty Start Date End Date Elsewhere, Pcp PCP - General Internal Medicine 10/29/23 documented as of this encounter
--- OUTSIDE RECORDS SUMMARY | 2024-03-03 13:29 | XMS_ITS | Encounter Summary ---
Author Organization [facility] Address [address] [place] [address] Care Team Providers Care Cruise Director Name Role Phone Elsewhere, Pcp Primary Care Provider Unavailabl e Reason for Visit * Reason Onset Date Comments Nurse Assessment 12/24/2023 Post op questio n for podiatry Encounter Details Date Type Department Care Team (Latest Contact Info) Description 12/24/2023 Clinical Communication Department of Orthopedic Surgery in [place], [place] [address] [place] [phone] Mercy Hernández am, D.P.M. [address] [place] [phone] Nurse Assessment (Post op question for podiatry) [...] on filedocumented in this encounter Care Teams Cruise Director Relationship Specialty Start Date End Date Elsewhere, Pcp PCP - General Internal Medicine 10/29/23 documented as of this encounter
--- OUTSIDE RECORDS SUMMARY | 2024-03-03 13:29 | XMS_ITS | Encounter Summary ---
Author Organization [facility] Address [address] [place] [address] Care Team Providers Care Bead Forming Machine Operator Name Role Phone Elsewhere, Pcp Primary Care Provider Unavailabl e Reason for Referral * Outpatient (Routine) - Closed Specialty Diagnoses / Procedures Referred By Penelopeac t Referred To Contact Diagnoses Swelling Toe Procedures DX Toes Left 3 Views Mercy Brown D.P.M. [address] [place] [phone] [facility] Referral ID Status Reason Start Date Expiration Date Visits Re quested Visits Authorized [id number] Closed 12/28/2023 12/27/2024 1 1 Reason for Visit * Outpatient (Routine) - Closed Specialty Diagnoses / Procedures Referred By Fawad t Referred To Contact Diagnoses Swelling Toe Procedures DX Toes Left 3 Views Mercy Brown D.P.MJennie [address] [place] [phone] [facility] Referral ID Status Reason Start Date Expiration Date Visits Re quested Visits Authorized [id number] Closed 12/28/2023 12/27/2024 1 1 Encounter Details Date Type Department Care Team (Latest Contact Info) Description 01/04/2024 7:50 AM CDT - 01/04/2024 11:59 PM CDT Hospital Encounter Department of Radiology in [address] [phone] Mercy Najera D.P.M. [address] [place] [phone] Swelling Toe Discharge Disposition: Home or Self [...] Toe documented in this encounter Care Teams Bead Forming Machine Operator Relationship Specialty Start Date End Date Elsewhere, Pcp PCP - General Internal Medicine 10/29/23 documented as of this encounter
--- OUTSIDE RECORDS SUMMARY | 2024-03-03 13:29 | XMS_ITS | Clinical Summary ---
Author Organization [facility] Address [address] [place] [address] Care Team Providers Care Editor Publications Name Role Phone Elsewhere, Pcp Primary Care Provider Unavailabl e Source Comments Patient records contain information from all sites at [facility]. For routine questions regarding patient records, call [phone] during business hours, M-F 8:00 AM - 5:00 PM Central Time. Record requests for emergency care only can be directed to [phone] at any time.[facility] Allergies Active Allergy Reactions Criticality Noted Date [...] Clinical Communication Primary Care on Demand at [address] [phone] Aba Santos M.D. 01/20/2024 Clinical Communication Primary Care on Demand at [address] [address] Aba Santos M.D. 01/04/2024 8:30 AM CDT Office Visit Department of Orthopedic Surgery in [address] [phone] Mercy Hernández am, D.PJennieMJennie Ingrown Nail (Primary Dx) Discharge Disposition: Home or Self Care 01/04/2024 7:50 AM CDT - 01/04/2024 11:59 PM CDT Hospital Encounter Department of Radiology in [address] [phone] Mercy Hernández am, D.PJennieMJennie Swelling Toe Discharge Disposition: Home or Self Care 12/28/2023 Orders Only Department of Orthopedic Surgery in [place] [address] Mercy Hernández am, D.PBradley Swelling Toe (Primary Dx) 12/24/2023 Clinical Communication Department of Orthopedic Surgery in [address] [address] Mercy Hernández am, D.PBradley Nurse Assessment (Post op question for podiatry) 12/08/2023 1:06 PM CDT - 12/08/2023 11:59 PM CDT Hospital Encounter Department of Radiology in [address] [phone] Mercy Hernández am, D.PBradley Follow Up Surgery Exam; Fracture Lesser Toe Middle Phalanx Displaced Closed Initial Left Discharge Disposition: Home or Self Care 12/08/2023 1:00 PM CDT Office Visit Department of Orthopedic Surgery in [address] [phone] Mercy Hernández am, D.PJennieMJennie Follow Up Surgery Exam (Primary Dx); Fracture Lesser Toe Middle Phalanx Displaced Closed Initial Left Discharge Disposition: Home or Self Care 12/08/2023 Orders Only Department of Orthopedic Surgery in [address] [phone] Jeanie Pina L.PJennieN. from Last 3 Months Immunizations Name Administration [...] 06/02/2022, 06/26/2020 Medical Devices Implanted Type Area Drug Abuse Treatment Specialist Device Identifier Shelf Expiration Date Model / Serial / Lot Scrw St Ftd Nlck Sld 2.0x6 - [id number] Implanted:Qty: 2 on 11/05/2023 by Mercy Hogan D.P.MJennie at [facility] [employer] e.g. pins/screws/r ods Dep[employer] Synthes [id number] / / 09.20..[address] Fthrd Nlck Sld 2.0x7 - [id number] Implanted:Qty: 1 on 11/05/2023 by Mercy Hogan D.P.MJennie at [facility] [employer] e.g. pins/screws/r ods [employer] [id number] / / 24.0 19 Plt Hnd Lcd 4h Lck 2.4x24 - [id number] Implanted:Qty: 1 on 11/05/2023 by Mercy Hogan D.PBradley at [facility] [employer] e.g. pins/screws/r ods [employer]ynthe[employer] [...] BILATERAL WITH TOMOSYNTHESIS Routine 09/07/2020 11:20 AM NEWSWRITER from Last 3 Months or Most Recently [...] DI AGNOSTIC IMAGING PROCEDURES * Thyroid Function [place] (10/29/2023 1:04 PM CDT) TSH, Sensitive 2.1 0.3 - 4.2 mIU/L 10/29/2023 6:29 PM CDT OWAT Blood (Blood, Venous) 10/29/2023 1:04 PM CDT 10/29/2023 5:47 PM CDT Jailene Connors APRN, C.N.P., D .N.P. LAB BLOOD ADD-ON [facility] [address] [place] [address], [place] OWAT [facility] [place] [address] [place] [address] * (ABNORMAL) Basic Metabolic Panel (10/29/2023 1:04 [...] Mercy Brown D.P.M. LAB BL OOD ADD-ON [facility] [address] [place] [address], [facility] OWAT [facility] [place] [address] [place] [address] from Last 3 Months or Most Recently Relevant to Health Maintenance Advance Directives For more information, please contact: [phone] * Full Code (Latest Code Status on File) Date Activated Date Inactivated Comments 11/05/2023 9:43 AM 11/05/2023 12:56 PM Question Answer Comments Full Code: Discussed * Full Code Date Activated Date Inactivated Comments 11/05/2023 7:38 AM 11/05/2023 9:43 AM Question Answer Comments Full Code: Discussed Care Teams Editor Publications Relationship Specialty Start Date End Date Elsewhere, Pcp PCP - General Internal Medicine 10/29/23
--- OUTSIDE RECORDS SUMMARY | 2024-03-03 13:29 | XMS_ITS | Encounter Summary ---
Author Organization [facility] Address [address] [place] [address] Care Team Providers Care Laminating Machine Tender Name Role Phone Elsewhere, Pcp Primary Care Provider Unavailabl e Reason for Referral * Outpatient (Routine) - Closed Specialty Diagnoses / Procedures Referred By Fawad ruffin Referred To Contact Orthopedic Surgery Mercy Brown D.P.M. [address] [place] [address] Mercy Brown D.P.MJennie [address] [place] [phone] Referral ID Status Reason Start Date Expiration Date Visits Re quested Visits Authorized [id number] Closed 12/08/2023 06/08/2025 1 1 Scheduling Instructions Post op, Ingrown Toenail Encounter Details Date Type Department Care Team (Late st Contact Info) Description 12/08/2023 Orders Only Department of Orthopedic Surgery in [place], [place] [address] [place] [phone] Jeanie Pina, LJenneiP.N. Social History Tobacco Use Types Packs/Day Years [...] on filedocumented in this encounter Care Teams Laminating Machine Tender Relationship Specialty Start Date End Date Elsewhere, Pcp PCP - General Internal Medicine 10/29/23 documented as of this encounter
--- OUTSIDE RECORDS SUMMARY | 2024-03-03 13:30 | XMS_ITS | Encounter Summary ---
Author Organization [facility] Address [address] [place] [address] Care Team Providers Care Eap Clinician Name Role Phone Elsewhere, Pcp Primary Care Provider Unavailabl e Reason for Referral * Outpatient (Routine) - Closed Specialty Diagnoses / Procedures Referred By Contac t Referred To Contact Diagnoses Fracture Lesser Toe Middle Phalanx Displaced Closed Initial Left Procedures DX Toes Left 3 Views Mercy Brown D.PJennieM. [address] [place] [address] [facility] Referral ID Status Reason Start Date Expiration Date Visits Re quested Visits Authorized [id number] Closed 11/23/2023 11/22/2024 1 1 Reason for Visit * Outpatient (Routine) - Closed Specialty Diagnoses / Procedures Referred By Contac t Referred To Contact Diagnoses Fracture Lesser Toe Middle Phalanx Displaced Closed Initial Left Procedures DX Toes Left 3 Views Mercy Brown D.P.M. [address] [place] [address] [facility] Referral ID Status Reason Start Date Expiration Date Visits Re quested Visits Authorized [id number] Closed 11/23/2023 11/22/2024 1 1 Encounter Details Date Type Department Care Team (Latest Contact Info) Description 11/23/2023 8:24 AM CDT - 11/23/2023 11:59 PM CDT Hospital Encounter Department of Radiology in [place], [place] [address] [place] [phone] Mercy Najera D.P.M. [address] [place] [phone] Fracture Lesser Toe Middle Phalanx [...] Left documented in this encounter Care Teams Eap Clinician Relationship Specialty Start Date End Date Elsewhere, Pcp PCP - General Internal Medicine 10/29/23 documented as of this encounter
--- OUTSIDE RECORDS SUMMARY | 2024-03-03 13:30 | XMS_ITS | Encounter Summary ---
Author Organization [facility] Address [address] [place] [address] Care Team Providers Care Middle School French Teacher Name Role Phone Elsewhere, Pcp Primary Care Provider Unavailabl e Reason for Referral * Outpatient (Routine) - Closed Specialty Diagnoses / Procedures Referred By Fawad ruffin Referred To Contact Diagnoses Follow Up Surgery Exam Fracture Lesser Toe Middle Phalanx Displaced Closed Initial Left Procedures DX Toes Left 3 Views Mercy Brown D.PJennieMJennie [address] [place] [address] [facility] Region Referral ID Status Reason Start Date Expiration Date Visits Re quested Visits Authorized [id number] Closed 12/08/2023 12/07/2024 1 1 Reason for Visit * Reason Comments Post-op S/P ORIF middle phal anx and fusion of the proximal interphalangeal joint left 2nd toe (DOS:11/05/2023) * Outpatient (Routine) - Closed Specialty Diagnoses / Procedures Referred By Fawad ruffin Referred To Contact Orthopedic Surgery Mercy Brown D.PJennieMJennie [address] [place] [address] [facility] Referral ID Status Reason Start Date Expiration Date Visits Re quested Visits Authorized [id number] Closed 11/23/2023 05/24/2025 1 1 Encounter Details Date Type Department Care Team ([facility] st Contact Info) Description 12/08/2023 1:00 PM CDT Office Visit Department of Orthopedic Surgery in [place], [place] [address] [place] [phone] Mercy Brown D.P.M. [address] [place] [phone] Follow Up Surgery Exam (Primary Dx); Fracture [...] as of this encounter Progress Notes * Meryc Brown D.P.M. - 12/08/2023 1:00 PM CDT [...] November 05, 2023. Procedure was performed at [place], [place]. Surgical procedure(s) performed Mercy Ojeda D.P.M.. [...] Left documented in this encounter Care Teams Middle School French Teacher Relationship Specialty Start Date End Date Elsewhere, Pcp PCP - General Internal Medicine 10/29/23 documented as of this encounter
--- OUTSIDE RECORDS SUMMARY | 2024-03-03 13:30 | XMS_ITS | Clinical Summary ---
Author Organization [facility] [facility] Address [place], [place] [address] Care Team Providers Care Linen Controller Name Role Phone Jack Zavala MD Primary [...] second interspace of left foot,Toe pain, left [phone] Squared Toed Post op shoe, Small 1 [...] knee 12/10/2017 04/08/2019 Pes anserine bursitis 12/10/20172018 Encounters Date Type Department Care Team Description 02/22/2024 Lab Requisition [facility] [phone] Zaid Gonzalez MD from Last 3 Months Immunizations Name Administration [...] this topic Medical Devices Implanted Type Area Mental Health Associate Device Identifier Shelf Expiration Date Model / Serial / Lot Cmnt Bone 40gm Santiago Ab - [id number] Implanted:Qty: 2 on 04/05/2019 by French Torres MD at [facility] Left: Knee [employer] 10/15/2023 [id number] / / [id number] 29mm Oval Michelle Ii Resurfacing Patellar Component Implanted:Qty: 1 on 04/05/2019 by French Torres MD at [facility] Left: Knee [employer] 12/06/2028 [id number] / / [id number] Size 6 Left Bi-Cruciate Stabilized Journey Ii Bcs Oxinoim Femoral Component Implanted:Qty: 1 on 04/05/2019 by French Torres MD at [facility] Left: Knee [employer] 12/09/2028 [id number] / / [id number] Size 4 Left Journey Nonporous Tibial Baseplate Implanted:Qty: 1 on 04/05/2019 by French Torres MD at [facility] Left: Knee [employer] 11/01/2028 [id number] / / [id number] Left, Size 3-4, 9mm Journey Ii Bcs Xl Pe A/P 48mm M/L 68 Mm Articular Insert Implanted:Qty: 1 on 04/05/2019 by French Torres MD at [facility] Left: Knee [employer] 01/20/2027 [id number] / / [id number] Procedures Procedure Name Priority Date/Time Associated Diagnosis Comments LAB TRACKING EVENT Routine 02/22/2024 9: 10 AM CDT PATH TISSUE EXAM Routine 02/22/2024 9:10 AM CDT LIPID PANEL W REFLEX MEASURED LDL Routine 04/09/2021 12:10 PM CDT Lipid screening XR MAMMO MICK BILAT SCREEN Routine 09/07/2020 11:20 AM RESIDENCE SUPERVISOR Visit for screening mammogram COLONOSCOPY 07/14/2018 10:16 AM RESIDENCE SUPERVISOR ANTI HCV Routine 06/22/2018 10:24 AM RESIDENCE SUPERVISOR Need for hepatitis C screening test from Last 3 Months or Most Recently Relevant to Health Maintenance Results * LAB TRACKING EVENT (02/22/2024 9:10 AM CDT) Other (Other) Client Collect / Unknown 02/22/2024 9:10 AM CDT 02/22/2024 9:48 PM CDT Zaid Gonzalez MD LAB BILL ONLY [facility] [address] [place] [address], * PATH TISSUE EXAM (02/22/2024 9:10 AM CDT) Case Report Pathology Report ?Case: [id number] ? Authorizing Provider: ??Zaid Gonzalez MD ?Collected: ? 02/22/2024 0910 ? Ordering Location: ? [facility] ?Received: ?02/23/2024 0754 ? Pathologist: ? Junior Fisher MD ? Specimen: ?Ascending Colon Polyp ? 02/24/2024 10:43 AM CDT [facility] Final Diagnosis A) COLON, ASCENDING, POLYPECTOMY: 1. Tubular adenoma 2. Negative for high grade dysplasia 3. Per the colonoscopy report: ?? a. Polyp size: 2 mm ?? b. Resection: Complete ?? c. Retrieval: Complete 02/24/2024 10:43 AM CDT [facility] Clinical Information Surveillance colonoscopy 02/24/2024 10:43 AM CDT [facility] Gross Description A) Received in formalin is a couch mucosal fragment measuring 3 mm in greatest dimension, which is entirely submitted in one cassette. It is labeled with the patient's name and designated ascending colon polyp. Emely Gutiérrez Troy 02/23/2024 1:18 PM 02/24/2024 10:43 AM CDT [facility] Microscopic Description The final diagnosis is based on microscopic examination of appropriate sections of all specimens. 02/24/2024 10:43 AM CDT [facility] Additional Information Interpreted at [facility] - [address] [facility] [address], [place] [address] 02/24/2024 10:43 AM CDT [facility] Other (Ascending Colon Polyp) 02/22/2024 9:10 AM CDT 02/23/2024 7:54 AM CDT Zaid Gonzalez MD PATHOLOGY/CYTOLOGY [facility] [address] [place] [address], * (ABNORMAL) LIPID PANEL W REFLEX MEASURED LDL (04/09/2021 12:10 PM CDT) CHOLESTEROL,TOTAL 208(H) 100 - 199 mg/dL 04/09/2021 12:51 PM CDT [facility] TRIGLYCERIDES 144 <150 mg/dL 04/09/2021 12:51 PM CDT [facility] HDL CHOLESTEROL 66 >40 mg/dL 12:51 PM CDT [facility] NON-HDL CHOLESTEROL 142 <145 mg/dl 04/09/2021 12:51 PM CDT [facility] CHOL/HDL RATIO 3.15 <4.50 04/09/2021 12:51 PM CDT [facility] LDL CHOLESTEROL 113 <=130 mg/dL 04/09/2021 12:51 PM CDT [facility] VLDL CHOLESTEROL 29 mg/dL 04/09/20 12:51 PM CDT [facility] PROVIDER ORDERED STATUS RANDOM 04/09/2021 12:51 PM CDT [facility] Blood BLOOD SPECIMEN / Unknown Venipuncture / Unknown 04/09/2021 12:10 PM CDT 04/09/2021 12:12 PM CDT Rocael Conroy CHEMISTRY Performing Organization Address City/State/[facility] [[email or web address]] Co de Phone Number [facility] [address] [place] [address] * XR MAMMO MICK BILAT SCREEN (09/07/2020 11:20 AM RESIDENCE SUPERVISOR) Anatomical Region Laterality Modality BREASTS, Breast Left, Breast Right Bilateral Mammography Impressions 09/10/2020 7:00 AM RESIDENCE SUPERVISOR ??There is no radiographic evidence for malignancy. ??Recommend annual mammograms. A lay language report of this examination will be provided to the patient. MAMMOGRAM ASSESSMENT: ??ACR 2 Benign Narrative 09/10/2020 7:00 AM RESIDENCE SUPERVISOR XR MAMMO MICK BILAT SCREEN [[id number]] CLINICAL HISTORY: ??This is an asymptomatic 54 y.o. patient. INDICATION FOR EXAM: Mammogram Screening. TECHNIQUE: CC & MLO views were obtained. ??This digital study was evaluated with the assistance of Computer-Aided Detection. Breast Tomosynthesis was used in interpretation. COMPARISON FILMS: Yes 08/24/18 [facility] ?? FINDINGS: ??The breasts are heterogeneously dense, which may obscure small masses. ??No suspicious masses or microcalcifications. ??Benign appearing calcifications within right breast and Post surgical changes within ??left breast. Ortiz GARCIA MAMMO * COLONOSCOPY (07/14/2018 10:16 AM RESIDENCE SUPERVISOR) 07/14/2018 10:1 6 AM RESIDENCE SUPERVISOR Narrative Transcriptions Tod Cantu MD - 07/14/2018 1:14 PM CST Patient Name: Kelly Mcgee Procedure Date: 07/14/2018 Gender: Female Date of : 1965 Admit Type: Ambulatory Procedure: Colonoscopy Proceduralist: Tod Ponce One Indications/Pre-Op Diagnosis: High risk colon cancer [...] Cantu MD PROCEDURE ORD * ANTI HCV [19339.2] (06/22/2018 10:24 AM RESIDENCE SUPERVISOR) HEPATITIS C ANTIBODY Non-React sage Non-React sage 06/22/2018 5:59 PM RESIDENCE SUPERVISOR [facility] Comment:Antibodies to HCV no t detected; does not exclude the possibility of exposure to HCV. Blood BLOOD SPECIMEN / Unknown Venipuncture / Unknown 06/22/2018 10:24 AM RESIDENCE SUPERVISOR 06/22/2018 10:30 AM RESIDENCE SUPERVISOR Khoa Abel MD [facility] [address] [place] [address], from Last 3 Months or Most Recently Relevant to Health Maintenance Advance Directives * Full Code (Latest Code Status on File) Date Activated Date Inactivated Comments 04/07/2019 11:24 PM 04/09/2019 3:34 PM Question Answer Comments Code Status Discussion: Discussed * Full Code Date Activated Date Inactivated Comments 04/05/2019 6:12 AM 04/07/2019 10:02 PM Question Answer Comments Code Status Discussion: Discussed Care Teams Linen Controller Relationship Specialty Start Date End Date Jack Zavala MD [address] [place] [address] PCP - General Family Practice 03/31/22
--- NOTE | 2024-03-03 13:45 | CRLHL7_ITS ---
For Patients: As a result of the Century Cures Act, medical imaging exams and procedure reports are released immediately into your electronic medical record. You may view this report before your referring provider. If you have questions, please contact your health care provider. INDICATION: Pancreatic cyst. COMPARISON: CT scan of the abdomen and pelvis dated 19 February 2024. TECHNIQUE: Abdominal MRI with T1 in- and out of phase, T2, diffusion weighted, and progressively delayed post-contrast images. Intravenous gadolinium administered. FINDINGS: No fatty infiltration of the liver. A few small cysts in the liver. No other focal abnormalities identified in the visualized portions of the liver, spleen, and adrenal glands. Cortical irregularity of the right kidney may be secondary to previous renal scarring. The kidneys are otherwise unremarkable. No hydronephrosis. No adenopathy. 9 mm lobulated cyst in the head of the pancreas. The pancreas is otherwise unremarkable. No bile duct dilation. Normal size of the main pancreatic duct. Impression : 1. 9 mm cyst in the head of the pancreas. This could represent a small intraductal papillary mucinous neoplasm. Recommend follow-up MRI in 1 year to begin documentation of stability. Management of Incidental Pancreatic Cysts: A White Paper of the ACR Incidental Findings Committee. Journal of the [employer]. Volume 14, Number 7, February 2017, pages 911-921. Dictated by Ye Vasquez MD @ 03/06/2024 1:50:00 PM (Electronically Signed)
== END 2024-03-03 13:27 | disposition home or self-care (01) ==
LOC: MRI 13:27
PROVIDERS: PCP Family Medicine; Visit Provider Family Medicine
DX: K86.2 Cyst of pancreas (principal)
CPT/HCPCS: 74183; A9575

== ENCOUNTER 2025-02-07 12:22 | Outpatient (CLI) | payer BC, SELFPAY | END 2025-02-07 12:23 | disposition home or self-care (01) | PROVIDERS: PCP Family Medicine; Visit Provider Family Medicine | DX: E03.9 Hypothyroidism, unspecified (principal); N18.2 Chronic kidney disease, stage 2 (mild); D68.51 Activated protein C resistance; R10.9 Unspecified abdominal pain | CPT/HCPCS: 80048; 80076; 83690; 84443; 85025 ==

== ENCOUNTER 2025-04-05 13:31 | Outpatient (CLI) | payer BC, SELFPAY ==
--- NOTE | 2025-04-05 14:00 | CRLHL7_ITS ---
For Patients: As a result of the Century Cures Act, medical imaging exams and procedure reports are released immediately into your electronic medical record. You may view this report before your referring provider. If you have questions, please contact your health care provider. XR DXA Bone Mineral Density (BMD) Reason for exam: Other specified disorders of bone density. Current height (inches): 68.0 Weight (lbs.): 168.0 Menopause age: 35 Ethnicity: White 1. Have you had a previous hip or vertebral fracture? Yes. 2. Have you had any fractures during your adult life which did not result from significant trauma (e.g., auto accident)? Yes. 3. Did either of your parents have a hip fracture? Yes. 4. Do you smoke? No. 5. Have you ever taken Glucocorticoids? No. 6. Do you have rheumatoid arthritis? No. 7. Do you have secondary osteoporosis? No. 8. Do you drink 3 or more alcoholic drinks per day? No. 9. Are you being treated for osteoporosis? No. 10. Have you ever taken any of the following medications: Actonel, Evista, Fosamax, Miacalcin, Reclast, Boniva, Forteo, HRT (i.e., estrogen/hormone therapy), Protelos, Prolia, Vitamin D, Calcium, other ??? please specify. ANSWER: No. 11. Do you have any of the following medical conditions: Anorexia or bulimia, asthma or emphysema, end stage renal disease, hyperparathyroidism, any seizure disorders, cancer, inflammatory bowel diseases, hysterectomy, other ??? please specify. ANSWER: Yes; hysterectomy. 12. What was your maximum height (inches)? 69.25. 13. Do you perform weightbearing exercise regularly? Yes. 14. Do you regularly consume dairy products? Yes. 15. Do you drink caffeinated beverages? Yes. 16. At what age did your period start? 14. 17. Are you premenopausal? No. 18. How many full-term pregnancies have you had? 4. 19. Have you ever missed your period for more than 6 months in a row (not including or menopause)? No. TECHNIQUE: Bone mineral density study was performed using the [employer]. FINDINGS: The results of the study expressed as bone mineral density (BMD) are as follows: Lumbar Spine L1 to L2, L4: BMD: 0.858 g/cm2. T-score: -1.6. Z-score: -0.2. Right Femoral Neck: BMD: 0.664 g/cm2. T-score: -1.7. Z-score: -0.4. Right Total Hip: BMD: 0.802 g/cm2. T-score: -1.1. Z-score: -0.2. Radius Left 33%: BMD: 0.669 g/cm2. T-score: 0.1. Z-score: 1.4. IMPRESSION: Osteopenia. KAT VASQUEZ M.D. Body/Diagnostic Radiologist [email or web address] , 11:[address]/Dictated by: Kat Vasquez MD @ 04/10/2025 6:21:00 AM (Electronically Signed)
--- NOTE | 2025-04-05 14:30 | CRLHL7_ITS ---
For Patients: As a result of the Century Cures Act, medical imaging exams and procedure reports are released immediately into your electronic medical record. You may view this report before your referring provider. If you have questions, please contact your health care provider. INDICATION: Pancreatic cyst. COMPARISON: Abdominal MRI dated [address] scan of the abdomen and pelvis dated 19 February 2024. TECHNIQUE: Abdominal MRI with T1 in- and out of phase, T2, diffusion weighted, and progressively delayed post-contrast images. Intravenous gadolinium administered. FINDINGS: No fatty infiltration of the liver. A few small cysts in the liver. No other focal abnormalities identified in the visualized portions of the liver, spleen, adrenal glands, and left kidney. Irregularity of the right renal cortex may be secondary to previous renal scarring. No hydronephrosis. No adenopathy. 9 mm lobulated cyst in the head of the pancreas is unchanged. The pancreas is otherwise unremarkable. No bile duct dilation. Normal size of the main pancreatic duct. Impression : 1. 9 mm lobulated cyst in the head of the pancreas is unchanged. Recommend follow-up MRI in 1 year to continue documentation of stability. Management of Incidental Pancreatic Cysts: A White Paper of the ACR Incidental Findings Committee. Journal of the [employer]. Volume 14, Number 7, February 2017, pages 911-929. Dictated by Ye Vasquez MD @ 04/07/2025 12:42:08 PM (Electronically Signed)
== END 2025-04-05 13:32 | disposition home or self-care (01) ==
LOC: RAD 13:31
PROVIDERS: PCP Family Medicine; Visit Provider Family Medicine
DX: K86.2 Cyst of pancreas (principal)
CPT/HCPCS: 74183; 77080; A9575

== ENCOUNTER 2025-04-07 23:58 | Emergency (ER) | payer BC, SELFPAY ==
--- OUTSIDE RECORDS SUMMARY | 2025-04-08 00:02 | XMS_ITS | Patient Health Record ---
Author Organization [employer] Address [address] [place] [place] [id number] Care Team Providers Care Commissioner Of Officials Name Role Phone NONE, Use Primary Care Provider UnavailMikal Grayson Unavailable [phone] DO Baldwin Brian R. Unavailable Unavailable Allergies [...] 15 MG 1 tablet Orally Once a day; Duration: 30 day(s) 10/09/2022 Active Minocycline HCl Acti [...] Status W/U Status Risk Notes Problem Overweight (722290670) Overweight (E66.3) Active confirmed Problem Pain in left foot ([id number] 7) Pain in left foot (M79.672) Active [...]
--- OUTSIDE RECORDS SUMMARY | 2025-04-08 00:02 | XMS_ITS | Clinical Summary ---
Author Organization [employer] [facility] Address [address] [place] [address] Care Team Providers Care Anime Designer Name Role Phone Jack Zavala MD Primary Care Provider + Allergies Active Allergy Reactions Criticality Noted Date Comments Bee Venom Protein (Honey Bee) *Unknown 2018 Medications bisacodyl (DULCOLAX, BISACODYL,) 5 mg delayed release tablet Take 10 mg by mouth once daily. Active cholecalcifero l (DIALYVITE VITAMIN D) 5,000 unit capsule Take 1 capsule by mouth once daily. 40 units = 1 mcg (5000 units = 125 mcg) 0 01/19/20 20 Active albuterol HFA (PRO-AIR; VENTOLIN; PROVENTIL) 90 mcg/actuation inhalerIndicat ions:Cough Inhale 2 Puffs by mouth every 4 hours if needed (SOB). 18 g 5 04/09/20 21 Active durable medical equipment (DME)Indicatio ns:Neuroma of second interspace of left foot,Toe pain, left [id number] Squared Toed Post op shoe, Small 1 Each 12/20/19 23 Active semaglutide (Wegovy) 0.25 mg/0.5 mL pen Inject 0.25 mg subcutaneously every week for 4 weeks; then increase to 0.5 mg dose. 2 mL 2 04/03/20 23 Active semaglutide, weight loss, (Wegovy) 0.5 mg/0.5 mL pen Inject 0.5 mg subcutaneous once weekly. 2 mL 04/03/20 23 Active EPINEPHrine (EPIPEN) 0.3 mg/0.3 mL auto-injector Inject 0.3 mg intramuscular one time if needed as a single dose; may repeat once. 2 Each 2 4 12:30 PM CDT 11/12/19 24 Active omeprazole (PRILOSEC) 20 mg Delayed-Releas e capsule Take 1 Capsule (20 mg) by mouth once daily. 90 Capsule 1 4 1:55 PM CDT 02/09/20 24 Active polyethylene glycol-electro lyte (GOLYTELY) 236-22.74-6.74 -5.86 gram suspension 240 mL orally every 10 minutes; until fecal effluent is clear 4000 mL 4 11:27 AM CDT 02/10/20 24 Active dextroamphetam ine-amphetamin e 20 mg Extended-Relea se capsule 40 mg (2 x 20 mg) orally every morning 60 Capsule 02/08/20 25 Active sennosides (SENNA) 8.6 mg tablet Take 2 Tablets (17.2 mg) by mouth once daily. 60 Tablet 2 5 5:27 PM CDT 02/08/20 25 Active furosemide 40 mg tablet Take 1 Tablet (40 mg) by mouth once daily. 90 Tablet 1 5 5:02 PM CDT 02/08/20 25 Active levothyroxine (SYNTHROID) 50 mcg tablet Take 1 Tablet (50 mcg) by mouth once daily. 90 Tablet 3 5 2:04 PM CDT 02/08/20 25 Active dextroamphetam ine-amphetamin e 30 mg Extended-Relea se capsule Take 1 Capsule (30 mg) by mouth once daily in the morning. 30 Capsule 5 5:37 PM CDT 02/10/20 25 Active citalopram 40 mg tablet Take 1 Tablet (40 mg) by mouth at bedtime. 90 Tablet 1 5 9:29 AM CDT 02/21/20 25 Active plecanatide (Trulance) 3 mg tab Take 1 Tablet (3mg) by mouth once daily. 90 Tablet 1 5 2:04 PM CDT 02/24/20 25 Active clonazePAM (KLONOPIN) 1 mg tablet Take 1 Tablet (1 mg) by mouth once daily if needed for anxiety. 30 Tablet 5 9:44 AM CDT 02/29/20 25 Active buPROPion (WELLBUTRIN XL) 300 mg Extended-Relea se tablet Take 1 Tablet (300 mg) by mouth once daily. 90 Tablet 1 5 1:01 PM CDT 03/20/20 25 Active traZODone (DESYREL) 100 mg tablet Take 1.5 Tablets (150 mg) by mouth at bedtime. 135 Tablet 1 5 1:01 PM CDT 03/20/20 25 Active pregabalin (LYRICA) 300 mg capsule Take 1 Capsule (300 mg) by mouth two times daily. 180 Capsule 1 5 12:37 PM CDT 03/23/20 25 Active minocycline (MINOCIN) 100 mg capsuleIndicat ions:Acne vulgaris Take 1 Capsule (100 mg) by mouth 2 times daily. 180 Capsule 2 1:12 PM CDT 04/29/20 22 023 Discontin ued(*Shyann ent states no longer taking) pregabalin 300 mg capsule Take 1 Capsule (300 mg) by mouth two times daily. 180 Capsule 1 5 9:10 AM CDT 09/27/19 25 025 Discontin ued(Reord er (E-cancel not sent)) buPROPion 300 mg Extended-Relea se tablet Take 1 Tablet (300 mg) by mouth once daily. 90 Tablet 5 3:58 PM CDT 12/20/19 25 025 Discontin ued(Reord er (E-cancel not sent)) traZODone 100 mg tablet Take 1.5 Tablets (150 mg) by mouth at bedtime. 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 [...] 12/10/2017 04/08/2019 Pes anserine bursitis 12/10/20172018 Immunizations Immunization Administration Dates Next Due COVID-19 vaccine (Moderna 100mcg/0.5mL) PF, MDV 02/07/2021,12/13/2020 Hepatitis B (Adult) 02/15/2004 Influenza, IIV3 (Age 6-35 mos) 05/07/2009 Influenza, IIV3 (Age >=3 years) 06/06/20 10,06/08/2008,06/11/2007,2004,05/30/2003,06/02/2002,08/20/2001 Influenza, IIV4 06/26/2020, 9,05/25/2018,2017,05/13/2017 Tdap 09/21/2017,04/07/2008 Zoster (Shingrix-RZV, recombinant) 06/26/2020 Family [...] Paying Living Expenses Not on file 08/07/2021 Comments No Sex and Gender Information Value Date Recorded Sex Assigned at Not on file Legal Sex Female 6:17 AM [employer]ATING AND [employer]ATING [employer]END[employer] Gender Identity Not on file Sexual Orientation Not on file 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 Not on file Not on file Not on file Not on file Not on file Not on file Not on file Obstetrics History Last Filed Vital Signs Vital Sign Reading Time Taken Comments Blood Pressure 122/78 04/09/2021 11:08 AM CDT Pulse 80 12/04/2022 10:02 AM CDT Temperature 37.2 C (98.9 F) 01/08/2021 9:23 AM CDT Respiratory Rate 18 [...] Done Comments HIV for age 15-65 10/26/1979 Pneumococcal series for age 50+ (1 of 2 - PCV) 10/26/1983 Hepatitis B series for 19+ ( 2 of 3 - 19+ 3-dose series) 03/14/2004 02/15/2004 Zoster (shingles) series for age 50+ (2 of 2) 08/21/2020 06/26/2020 Mammogram for age 45-75 09/07/2021 09/07/2020, 08/24 Depression screening for age 12+ 01/11/2022 01/11/2021, 01/08/2021, 10/17/2019, Additional history exists BMI (ht and wt on same day) for age 18+ 04/09/2022 04/09/2021, 01/11/2021, 01/08/2021, Additional history exists Colonoscopy through age 75 07/14/2023 07/14/2018 COVID-19 vaccine series ( - season) 2024 08/12/2021, 02/07/2021, 12/13/2020 RSV vaccine for adults or (1 - Risk 60-74 years 1-dose series) 2024 Influenza Vaccine (#1) 2025 , 07/04/2019, 05/25/2018, Additional history exists Lipids for age 45-75 04/09/2026 04/09/2021, 06/22/20 18 Tetanus booster 09/21/2027 09/21/2017, 04/07/2008 Hepatitis C screening for ag e 18-79 Completed 06/22/2018 Medical Devices Implanted Type Area Textile Bag Sewer Device Identifier Shelf Expiration Date Model / Serial / Lot Cmnt Bone 40gm Rally Mv Ab - [id number] Implanted:Qty: 2 on 04/05/2019 by French Torres MD at [facility] Left: Knee [employer] 10/15/2023 [id number] / / [id number] 29mm Oval Michelle Ii Resurfacing Patellar Component Implanted:Qty: 1 on 04/05/2019 by French Torres MD at [facility] Left: Knee [employer] 12/06/2028 [id number] / / [id number] Size 6 Left Bi-Cruciate Stabilized Journey Ii Bcs Oxinoim Femoral Component Implanted:Qty: 1 on 04/05/2019 by French Torres MD at [facility] Left: Knee [employer] 12/09/2028 [id number] / / [id number] Size 4 Left Journey Nonporous Tibial Baseplate Implanted:Qty: 1 on 04/05/2019 by French Torres MD at [facility] Left: Knee [employer] 11/01/2028 [id number] / / [id number] Left, Size 3-4, 9mm Journey Ii Bcs Xl Pe A/P 48mm M/L 68 Mm Articular Insert Implanted:Qty: 1 on 04/05/2019 by French Torres MD at [facility] Left: Knee [employer] 01/20/2027 [id number] / / [id number] Procedures Procedure Name Priority Date/Time Associated Diagnosis Comments LIPID PANEL W REFLEX MEASURED LDL Routine 04/09/2021 12:10 PM CDT Lipid screening XR MAMMO MICK BILAT SCREEN Routine 09/07/2020 11:20 AM [employer] AND [employer]ATING TENDER Visit for screening mammogram COLONOSCOPY 07/14/2018 10:16 AM [employer]ATING AND [employer]ILATING TENDER ANTI HCV Routine 06/22/2018 10:24 AM [employer]ATING AND V[employer]ILATING TENDER Need for hepatitis C screening test from Last 3 Months or Most Recently Relevant to Health Maintenance Results * (ABNORMAL) LIPID PANEL W REFLEX MEASURED LDL (04/09/2021 12:10 PM CDT) CHOLESTEROL,TOTAL 208(H) 100 - 199 mg/dL 04/09/2021 12:51 PM CDT [facility] TRIGLYCERIDES 144 <150 mg/dL 04/09/2021 12:51 PM CDT [facility] HDL CHOLESTEROL 66 >40 mg/dL 12:51 PM CDT [facility] NON-HDL CHOLESTEROL 142 <145 mg/dl 04/09/2021 12:51 PM CDT [facility] CHOL/HDL RATIO 3.15 <4.50 04/09/2021 12:51 PM CDT [facility] LDL CHOLESTEROL 113 <=130 mg/dL 04/09/2021 12:51 PM CDT [facility] VLDL CHOLESTEROL 29 mg/dL 04/09/20 12:51 PM CDT [facility] PROVIDER ORDERED STATUS RANDOM 04/09/2021 12:51 PM CDT [facility] Blood BLOOD SPECIMEN / Unknown Venipuncture / Unknown 04/09/2021 12:10 PM CDT 04/09/2021 12:12 PM CDT Rocael Gardner Marycarmen DO CHEMISTRY Final Res ult Performing Organization Address City/State/[facility] Co de Phone Number [address] [address] * XR MAMMO MICK BILAT SCREEN (09/07/2020 11:20 AM HEATING AND VENTILATING TENDER) Anatomical Region Laterality Modality BREASTS, Breast Left, Breast Right Bilateral Mammography Impressions 09/10/2020 7:00 AM HEATING AND VENTILATING TENDER There is no radiographic evidence for malignancy. Recommend annual mammograms. A lay language report of this examination will be provided to the patient. MAMMOGRAM ASSESSMENT: ACR 2 Benign Narrative 09/10/2020 7:00 AM HEATING AND VENTILATING TENDER XR MAMMO MICK BILAT SCREEN [[id number]] CLINICAL HISTORY: This is an asymptomatic 54 y.o. patient. INDICATION FOR EXAM: Mammogram Screening. TECHNIQUE: CC & MLO views were obtained. This digital study was evaluated with the assistance of Computer-Aided Detection. Breast Tomosynthesis was used in interpretation. COMPARISON FILMS: Yes 08/24/18 [facility] FINDINGS: The breasts are heterogeneously dense, which may obscure small masses. No suspicious masses or microcalcifications. Benign appearing calcifications within right breast and Post surgical changes within left breast. Ortiz GARCIA MAMMO Fin al Result * COLONOSCOPY (07/14/2018 10:16 AM HEATING AND VENTILATING TENDER) 07/14/2018 10:1 6 AM HEATING AND VENTILATING TENDER Narrative Transcriptions Tod Cantu MD - 07/14/2018 1:14 PM CST Patient Name: Kelly Mcgee Procedure Date: 07/14/2018 Gender: Female Date of : 1965 Admit Type: Ambulatory Procedure: Colonoscopy Proceduralist: Tod Ponce [facility] Indications/Pre-Op Diagnosis: High risk colon cancer surveillance:Personal [...] 10:16 AM Tod Cantu MD PROCEDURE ORD Final Res ult * ANTI HCV [[id number]] (06/22/2018 10:24 AM HEATING AND VENTILATING TENDER) HEPATITIS C ANTIBODY Non-React sage Non-React sage 06/22/2018 5:59 PM HEATING AND VENTILATING TENDER [facility] Comment:Antibodies to HCV no t detected; does not exclude the possibility of exposure to HCV. Blood BLOOD SPECIMEN / Unknown Venipuncture / Unknown 06/22/2018 10:24 AM HEATING AND VENTILATING TENDER 06/22/2018 10:30 AM HEATING AND VENTILATING TENDER Khoa Abel MD SEND OUTS Final Result [facility] [address] [place] [address], from Last 3 Months or Most Recently Relevant to Health Maintenance Insurance [employer]US OUT OF NETWORK Advance Directives * Full Code (Latest Code Status on File) Date Activated Date Inactivated Comments 04/07/2019 11:24 PM 04/09/2019 3:34 PM Question Answer Comments Code Status Discussion: Discussed * Full Code Date Activated Date Inactivated Comments 04/05/2019 6:12 AM 04/07/2019 10:02 PM Question Answer Comments Code Status Discussion: Discussed Care Teams Anime Designer Relationship Specialty Start Date End Date Jack Zavala MD [address] [place] [id number] PCP - General Family Practice 03/31/22
[2025-04-08 00:04] VITALS: BP 124/71; PULSE 87; RESP 18; TEMP 36.9; O2SAT 98; BMI 25.8
--- NOTE | 2025-04-08 00:09 | ED.ABDPAIN ---
HPI - Abdominal Pain General Time Seen by Provider: 00:09 Date Seen: 04/08/25 Chief Complaint: Abdominal Pain Stated Complaint: chest pain, possible pancreatitis Time Seen by Provider: 04/08/25 00:06 Source: patient Mode of arrival: ambulatory History of Present Illness HPI narrative: Kelly is a 59 yo female who presents the emergency department for evaluation of abdominal pain. Patient reports that evening she started feeling unwell generalized weakness, in some pain in her left upper abdomen and left side chest. Patient describes the pain as an intermittent sharp achy pain located in her epigastric, left upper abdomen, left side, left chest, left back. Patient denies any aggravating or relieving factors. Patient denies any recent trauma or injury patient reports some nausea but denies any vomiting. Denies any fever, chills, cough or cold-like symptoms. Patient reports that feels as if a bandage wrapped around her chest. Patient reports 2 normal bowel movements today. Denies any dysuria, hematuria. No lower extremity edema or calf tenderness. Patient states that she is typically extremely active. Patient reports she had an MRI of her abdomen on for follow-up/monitoring of a pancreatic cyst. Per chart review MRI of the abdomen demonstrates a 9 mm lobulated cyst in the head of the pancreas which is unchanged from prior. Recommend follow-up MRI in 1 year. Patient denies any tobacco use, alcohol use, reports occasional marijuana use. Patient tried 1 oxycodone yesterday for pain. Related Data Home Medications ?Medication ?Instructions ?Recorded ?Confirmed cholecalciferol (vitamin D3) 25 25 mcg PO DAILY 02/11/22 02/07/25 mcg (1,000 unit) capsule clindamycin phosphate 1 % lotion 1 applic topical QDAY 04/03/23 02/07/25 tirzepatide 2.5 mg/0.5 mL 2.5 mg subcut QWEEK 02/09/24 02/07/25 subcutaneous pen injector (Lis) Previous Rx's ?Medication ?Instructions ?Recorded epinephrine 0.3 mg/0.3 mL 0.3 ml IM ONCE #2 ea 11/12/23 injection, auto-injector omeprazole 20 mg capsule,delayed 20 mg PO QDAY #90 caps 02/09/24 release furosemide 40 mg tablet 40 mg PO DAILY #90 tabs 02/07/25 levothyroxine 50 mcg tablet 50 mcg PO DAILY #90 tabs 02/07/25 sennosides 8.6 mg tablet (senna) 17.2 mg (2 x 8.6 mg) PO QDAY #60 02/07/25 tabs dextroamphetamine-amphetamine ER 30 mg PO QAM #30 caps 02/09/25 30 mg 24hr capsule,extend release (Adderall XR) citalopram 40 mg tablet 40 mg PO HS #90 tabs 02/20/25 plecanatide 3 mg tablet (Trulance) 3 mg PO QDAY #90 tabs 02/23/25 clonazepam 1 mg tablet (Klonopin) 1 mg PO QDAY PRN anxiety #30 tabs 02/28/25 bupropion HCl 300 mg 24 hr tablet, 300 mg PO DAILY #90 tabs 03/20/25 extended release trazodone 100 mg tablet See Rx Instructions .Route 03/20/25 .COMPLEX #135 tabs pregabalin 300 mg capsule 300 mg PO BID #180 caps 03/23/25 metoclopramide HCl 5 mg tablet 5 mg PO Q8H #7 tabs 04/08/25 (Reglan) Allergies Allergy/AdvReac Type Severity Reaction Status Date / Time bee venom protein (honey bee) Allergy Severe Anaphylaxis Verified 02/07/25 11:30 Review of Systems Narrative Past medical history, past surgical history, medications, allergies, family history, and social history were reviewed with the patient. No additional pertinent items. A medically appropriate review of systems was performed with pertinent positives and negatives noted in HPI, all other systems negative. [facility] Medical History GERD (gastroesophageal reflux disease) ?K21.9 - Gastro-esophageal reflux disease without esophagitis (ICD-10) Bee allergy status ?Z91.030 - Bee allergy status (ICD-10) Fracture of triquetrum of left wrist ?S62.112A - Displaced fracture of triquetrum [cuneiform] bone, left wrist, initial encounter for closed fracture (ICD-10) ROSITA (generalized anxiety disorder) ?F41.1 - Generalized anxiety disorder (ICD-10) Insomnia ?G47.00 - Insomnia, unspecified (ICD-10) Chronic constipation ?K59.09 - Other constipation (ICD-10) Fracture of head of left femur ?S72.052A - Unspecified fracture of head of left femur, initial encounter for closed fracture (ICD-10) Family history of clotting disorder ?Z83.2 - Family history of diseases of the blood and blood-forming organs and certain disorders involving the immune mechanism (ICD-10) Recurrent major depression ?F33.9 - Major depressive disorder, recurrent, unspecified (ICD-10) Hypothyroidism ?E03.9 - Hypothyroidism, unspecified (ICD-10) Generalized anxiety disorder ?F41.1 - Generalized anxiety disorder (ICD-10) ADHD, predominantly inattentive type ?F90.0 - Attention-deficit hyperactivity disorder, predominantly inattentive type (ICD-10) Traumatic brain injury ?S06.9X9A - Unspecified intracranial injury with loss of consciousness of unspecified duration, initial encounter (ICD-10) Neurofibromatosis ?Q85.00 - Neurofibromatosis, unspecified (ICD-10) Fibromyalgia ?M79.7 - Fibromyalgia (ICD-10) Postoperative deep vein thrombosis (DVT) ?T81.89XA - Other complications of procedures, not elsewhere classified, initial encounter (ICD-10) ?I82.409 - Acute embolism and thrombosis of unspecified deep veins of unspecified lower extremity (ICD-10) Syncope ?R55 - Syncope and collapse (ICD-10) Colon polyps ?K63.5 - Polyp of colon (ICD-10) CKD (chronic kidney disease), stage II ?N18.2 - Chronic kidney disease, stage 2 (mild) (ICD-10) Factor V Leiden ?D68.51 - Activated protein C resistance (ICD-10) Surgical History 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) ?Z96.649 - Presence of unspecified artificial hip joint (ICD-10) Hx of section ?Z98.891 - History of uterine scar from previous surgery (ICD-10) Hx of blepharoplasty ?Z98.890 - Other specified postprocedural states (ICD-10) History of bunionectomy ?Z98.890 - Other specified postprocedural states (ICD-10) Status post left hip replacement (02/09/22) ?Z96.642 - Presence of left artificial hip joint (ICD-10) S/P tendon repair ?Z98.890 - Other specified postprocedural states (ICD-10) Hx laparoscopic cholecystectomy ?Z90.49 - Acquired absence of other specified parts of digestive tract (ICD-10) History of total abdominal hysterectomy and bilateral salpingo-oophorectomy ?Z90.710 - Acquired absence of both cervix and uterus (ICD-10) ?Z90.722 - Acquired absence of ovaries, bilateral (ICD-10) ?Z90.79 - Acquired absence of other genital organ(s) (ICD-10) Hx of appendectomy ?Z90.49 - Acquired absence of other specified parts of digestive tract (ICD-10) S/P tendon repair ?Z98.890 - Other specified postprocedural states (ICD-10) Hx of LASIK ?Z98.890 - Other specified postprocedural states (ICD-10) History of arthroplasty of left knee ?Z96.652 - Presence of left artificial knee joint (ICD-10) Family History Mother Coagulation disorder Depression Osteoarthritis Rheumatoid arthritis Daughter Depression Rheumatoid arthritis Maternal Grandmother Depression Osteoarthritis Thyroid disease Paternal Grandmother Depression Diabetes Social History (Updated 08/01/24 @ 08:57 by Aleah Newton) Narrative: , nonsmoker, full code, THC, social ETOH What is your current living situation?: I presently have a place to live Problems where you live: pests, such as bugs, ants, or mice Problems where you live details: Pt states problem being fixed In the past 12 months, utilities in danger of being shut off: no In past 12 months, lack of transportation kept you from medical appts, meetings, work, or getting things needed for daily living: no In the past 12 mos, have been you worried that your food would run out before you had money to buy more?: never true In the past 12 mos, the food you bought just didn't last and you didn't have money to buy more?: never true Highest level of school completed/degree received: Associate degree: academic program Smoking Status: Former smoker Do you use any of these nicotine containing products: None Second hand tobacco smoke exposure: No How often do you have a drink containing alcohol: monthly or less Alcohol type: hard liquor How many standard drinks containing alcohol do you have on a typical day: 1 or 2 How often do you have six or more drinks on one occasion: Never AUDIT-C Alcohol total score: 1 Non-prescribed substance use: marijuana (any form) Caffeine: Yes How often does anyone, including family, friends and others, physically hurt you: never How often does anyone, including family, friends and others, insult or talk down to you: never How often does anyone, including family, friends and others, threaten you with harm: never How often does anyone, including family, friends and others, scream or curse at you: never Are you using contraception or practicing any form of control: No service: No Health Related Social Needs: Inadequate housing (Z59.1) Exam Narrative: Exam Narrative: General: Afebrile, no acute distress HEENT: Normocephalic, atraumatic, conjunctiva normal. MMM Neck: non-tender, supple Cardio: regular rate. regular rhythm Resp: Normal work of breathing, no respiratory distress, lungs clear bilaterally, no wheezing, rhonchi, rales Chest/Back: no visual signs of trauma, no midline tenderness, no CVA tenderness Abdomen: soft, non distension, mild TTP epigastric, LUQ, no rebound, no guarding, no peritoneal signs Neuro: alert and fully oriented. CN II-XII grossly intact. Grossly normal strength and sensation in all extremities. MSK: no deformities. Normal range of motion Integumentary/Skin: no rash visualized, normal color Psych: normal affect, normal behavior Const: Vital Signs, click to edit/add: Vital Signs - 24 hr 04/08/25 00:04 Temperature 98.4 F Pulse Rate [Right Pulse Oximeter] 87 Respiratory Rate 18 Blood Pressure [Ri ght Upper Arm] 124/71 Pulse Oximetry 98 Oxygen Delivery Me thod Room Air Course Vital Signs Vital signs: Initial Vital Signs Temperature 98.4 F 04/08/25 00:04 Temperature Source Temporal Artery Scan 04/08/25 00:04 Pulse Rate 87 04/08/25 00:04 Respiratory Rate 18 04/08/25 00:04 Blood Pressure 124/71 04/08/25 00:04 Blood Pressure Mean 88 04/08/25 00:04 Blood Pressure Position Sitting 04/08/25 00:04 Pulse Oximetry 98 04/08/25 00:04 Oxygen Delivery Method Room Air 04/08/25 00:04 Vital Signs Temperature 98.4 F 04/08/25 00:04 Pulse Rate 87 04/08/25 00:04 Respiratory Rate 18 04/08/25 00:04 Blood Pressure 124/71 04/08/25 00:04 Pulse Oximetry 98 04/08/25 00:04 Oxygen Delivery Method Room Air 04/08/25 00:04 Temperature 98.4 F 04/08/25 00:04 Pulse Rate 87 04/08/25 00:04 Respiratory Rate 18 04/08/25 00:04 Blood Pressure 124/71 04/08/25 00:04 Pulse Oximetry 98 04/08/25 00:04 Oxygen Delivery Method Room Air 04/08/25 00:04 Medications Administered Medications: Discontinued Medications Generic Name Dose Route Start Last Admin Trade Name Freq PRN Reason Stop Dose Admin Famotidine 20 mg 04/08/25 01:48 04/08/25 01:52 Famotidine 10 Mg/Ml Inj IVP 04/08/25 01:49 20 mg ONCE ONE Administration Sodium Chloride 1,000 mls @ 1,000 mls/hr 04/08/25 00:45 04/08/25 01:43 0.9 % Sodium Chloride 1000 Ml IV 04/08/25 01:44 Infused .Q1H RALPH Infusion Metoclopramide HCl 10 mg 04/08/25 01:48 04/08/25 01:52 Metoclopramide Hcl 5 Mg/Ml Inj IVP 04/08/25 01:49 10 mg ONCE ONE Administration Ondansetron HCl 4 mg 04/08/25 00:35 04/08/25 00:37 Ondansetron 2 Mg/Ml Inj IVP 04/08/25 00:36 4 mg ONCE ONE Administration MDM - Abdominal Pain MDM Narrative Medical decision making narrative: Kelly is a 59 yo female here with left upper abdominal, chest, side pain. Upon arrival patient is nontoxic appearing, afebrile, in distress secondary to pain, nausea. Patient hemodynamically stable vital signs within normal limits. Blood pressure 124/71, heart rate 87, oxygen 98% on room air. Differential diagnosis includes but is not limited to ACS versus PE versus pneumonia versus pneumothorax versus pleural effusion versus pancreatitis versus biliary colic versus musculoskeletal/inflammatory versus gastritis versus peptic ulcer disease among others. Patient reports history of cholecystectomy, appendectomy in the past. Upon arrival patient was treated with IV Zofran, comprehensive labs, EKG performed. I reviewed patient's recent MRI from 04/05/2025 EKG which demonstrates normal sinus rhythm with a ventricular rate of 67 beats per minute, normal axis, QTC 437, no acute ischemic change. Comprehensive labs remarkable for no leukocytosis white blood cell count 5.5, hemoglobin 14.3, no acute metabolic or electrolyte abnormality, no transaminitis, normal bilirubin, troponin and D-dimer negative, lipase slightly elevated 390 (not 3 times limit). On re-evaluation patient resting comfortably, still complains of ongoing nausea despite IV Zofran. Will give additional antiemetics with famotidine, Reglan. I discussed results with patient. Overall patient is nontoxic appearing, hemodynamically stable, abdomen benign. After reviewing patient's MRI, laboratory testing, and shared decision making with patient, will hold off on further imaging at this time. Low suspicious for acute intra-abdominal pathology/emergency. Discussed possible early pancreatitis with slight elevation of lipase as well as patient's symptoms however patient is tolerating p.o., is not requiring IV pain medications. Patient does feel comfortable with discharge with close outpatient follow-up with her primary care provider as well as continue supportive care at home with oral hydration, clear with good diet and slowly advancing as tolerated, pain control, with strict return precautions if high fever, worsening pain, persistent vomiting, worsening symptoms. Patient understands and agrees to the plan. Medical Records Attestation: I reviewed the patient's medical records. Lab Data Attestation: I reviewed the patient's lab results. Labs: Lab Results 04/08/25 04/08/25 04/08/25 Range/Units 00:04 00:05 00:08 WBC 5.50 (4.50-11.00) K/uL RBC 4.63 (4.00-5.20) m/uL Hgb 14.3 (12.0-16.0) gm/dL Hct 42.0 (33.0-51.0) % MCV 91 (80-100) fL MCH 31 (26-34) pg MCHC 34 (32-36) gm/dL RDW Coeff of Corazon 13.0 (11.5-15.5) % Plt Count 224 (140-440) K/uL Neut % (Auto) 49.6 (42.0-72.0) % Lymph % (Auto) 38.2 (20-44) % Boyle % (Auto) 9.5 (0.0-11.0) % Eos % (Auto) 1.8 (0.0-7.0) % Baso % (Auto) 0.7 (0.0-3.0) % Neut # (Auto) 2.73 (1.7-7.0) K/uL Lymph # (Auto) 2.10 (0.90-2.90) K/uL Boyle # (Auto) 0.50 (0.00-0.90) K/UL Eos # (Auto) 0.10 (0.00-0.50) K/uL Baso # (Auto) 0.04 (0.00-0.30) K/uL Abs Immat Gran (auto) 0.01 (0.00-0.30) K/uL Imm/Tot Granulo (auto) 0.2 % D-Dimer Quant (PE/DVT) (0.00-0.50) ug/ml Sodium 136 (135-149) mmol/L Potassium 4.1 (3.6-5.1) mmol/L Chloride 103 (96-114) mmol/L Carbon Dioxide 29 (20-32) mmol/L Anion Gap 4 L (7-15) mEq/L BUN 16 (7-30) mg/dL Creatinine 0.9 (0.5-1.5) mg/dL Estimated Creat Clear 67.06 Estimated GFR 73 ml/min Glucose 94 (60-115) mg/dL Calcium 9.3 (8.4-10.6) mg/dL Total Bilirubin 0.4 (0.1-1.5) mg/dL Direct Bilirubin 0.1 (0.0-0.5) mg/dL AST 29 (12-35) U/L ALT 18 (4-35) U/L Alkaline Phosphatase 69 (40-150) U/L Troponin I (0.01-0.04) ng/mL Total Protein 7.0 (6.0-8.3) g/dL Albumin 4.1 (3.3-5.0) g/dL Lipase Cancelled 390 H Urine Color Yellow (Yellow) Urine Appearance Clear (Clear) Urine pH 6.5 (5.0-8.5) Ur Specific Yantis 1.020 (1.000-1.030) Urine Protein Negative (Negative) Urine Glucose (UA) Negative (Negative) Urine Ketones Negative (Negative) Urine Blood Negative (Negative) Urine Nitrite Negative (Negative) Urine Bilirubin Negative (Negative) Urine Urobilinogen 0.2 (0.2-1.0) Ur Leukocyte Esterase Negative (Negative) Urine RBC 0-2 (0-2) Urine WBC 0-2 (0-5) Ur Squamous Epith Cells Few (None-Few) Amorphous Sediment Few A (None) Urine Bacteria None (None) 04/08/25 Range/Units 00:26 WBC (4.50-11.00) K/uL RBC (4.00-5.20) m/uL Hgb (12.0-16.0) gm/dL Hct (33.0-51.0) % MCV (80-100) fL MCH (26-34) pg MCHC (32-36) gm/dL RDW Coeff of Corazon (11.5-15.5) % Plt Count (140-440) K/uL Neut % (Auto) (42.0-72.0) % Lymph % (Auto) (20-44) % Boyle % (Auto) (0.0-11.0) % Eos % (Auto) (0.0-7.0) % Baso % (Auto) (0.0-3.0) % Neut # (Auto) (1.7-7.0) K/uL Lymph # (Auto) (0.90-2.90) K/uL Boyle # (Auto) (0.00-0.90) K/UL Eos # (Auto) (0.00-0.50) K/uL Baso # (Auto) (0.00-0.30) K/uL Abs Immat Gran (auto) (0.00-0.30) K/uL Imm/Tot Granulo (auto) % D-Dimer Quant (PE/DVT) 0.21 (0.00-0.50) ug/ml Sodium (135-149) mmol/L Potassium (3.6-5.1) mmol/L Chloride (96-114) mmol/L Carbon Dioxide (20-32) mmol/L Anion Gap (7-15) mEq/L BUN (7-30) mg/dL Creatinine (0.5-1.5) mg/dL Estimated Creat Clear Estimated GFR ml/min Glucose (60-115) mg/dL Calcium (8.4-10.6) mg/dL Total Bilirubin (0.1-1.5) mg/dL Direct Bilirubin (0.0-0.5) mg/dL AST (12-35) U/L ALT (4-35) U/L Alkaline Phosphatase (40-150) U/L Troponin I < 0.01 (0.01-0.04) ng/mL Total Protein (6.0-8.3) g/dL Albumin (3.3-5.0) g/dL Lipase Urine Color (Yellow) Urine Appearance (Clear) Urine pH (5.0-8.5) Ur Specific Yantis (1.000-1.030) Urine Protein (Negative) Urine Glucose (UA) (Negative) Urine Ketones (Negative) Urine Blood (Negative) Urine Nitrite (Negative) Urine Bilirubin (Negative) Urine Urobilinogen (0.2-1.0) Ur Leukocyte Esterase (Negative) Urine RBC (0-2) Urine WBC (0-5) Ur Squamous Epith Cells (None-Few) Amorphous Sediment (None) Urine Bacteria (None) Discharge Plan Discharge Clinical Impression: Abdominal pain Patient Disposition: Home, Self-Care Condition: Stable Additional Instructions: Please follow-up with your primary care provider in the next 2-3 days for further evaluation and follow-up. Please call to schedule appointment. Please rest, drink plenty of fluids. Please start with a liquid diet and slowly advance to a bland/soft diet over the next 24-48 hours. Please return to the emergency department if you develop high fever, severe pain, persistent vomiting, or any worsening symptoms. It was a pleasure taking care of you today. We hope you feel better soon. Prescriptions: New metoclopramide HCl [Reglan] 5 mg tablet 5 mg PO Q8H Qty: 7 0RF No Action clindamycin phosphate 1 % lotion 1 applic topical QDAY omeprazole 20 mg capsule,delayed release(DR/EC) 20 mg PO QDAY Qty: 90 1RF Mounjaro 2.5 mg/0.5 mL pen injector 2.5 mg subcut QWEEK sennosides [senna] 8.6 mg tablet 17.2 mg PO QDAY Qty: 60 2RF cholecalciferol (vitamin D3) 25 mcg (1,000 unit) capsule 25 mcg PO DAILY epinephrine 0.3 mg/0.3 mL auto-injector 0.3 ml IM ONCE Qty: 2 2RF Rx Instructions: as a single dose; may repeat once furosemide 40 mg tablet 40 mg PO DAILY Qty: 90 1RF levothyroxine 50 mcg tablet 50 mcg PO DAILY Qty: 90 3RF dextroamphetamine-amphetamine [Adderall XR] 30 mg capsule,extended release 24hr 30 mg PO QAM Qty: 30 0RF citalopram 40 mg tablet 40 mg PO HS Qty: 90 1RF Trulance 3 mg tablet 3 mg PO QDAY Qty: 90 1RF clonazepam [Klonopin] 1 mg tablet 1 mg PO QDAY PRN (Reason: anxiety) Qty: 30 0RF trazodone 100 mg tablet See Rx Instructions .ROUTE .COMPLEX Qty: 135 1RF Dose Instruction: Take 1.5 Tablets (150 mg) by mouth at bedtime. Rx Instructions: Take 1.5 Tablets (150 mg) by mouth at bedtime. bupropion HCl 300 mg tablet extended release 24 hr 300 mg PO DAILY Qty: 90 1RF pregabalin 300 mg capsule 300 mg PO BID Qty: 180 1RF Follow Up/Referrals: Jack Zavala MD [Primary Care Provider, Family Practice] [facility]
[2025-04-08 00:21] LABS: Hematocrit 42.0 % (33.0-51.0); Hemoglobin* 14.3 gm/dL (12.0-16.0); Immature Granulocytes Abs Auto 0.01 K/uL (0.00-0.30); Immature Granulocytes Pct Auto 0.2 %; Lymphocytes Absolute Auto 2.10 K/uL (0.90-2.90); Mean Corpuscular HGB Conc 34 gm/dL (32-36); Mean Corpuscular Hemoglobin 31 pg (26-34); Mean Corpuscular Volume 91 fL (80-100); RDW Coefficient of Variation % 13.0 % (11.5-15.5); Red Blood Count 4.63 m/uL (4.00-5.20); White Blood Count* 5.50 K/uL (4.50-11.00)
[2025-04-08 00:22] LABS: Slide Review Reflex No
[2025-04-08 00:23] LABS: Albumin* 4.1 g/dL (3.3-5.0); Chloride* 103 mmol/L (96-114)
[2025-04-08 00:24] LABS: Potassium* 4.1 mmol/L (3.6-5.1); Sodium* 136 mmol/L (135-149)
[2025-04-08 00:26] LABS: Alanine Aminotransferase* 18 U/L (4-35); Anion Gap 4 mEq/L (7-15); Aspartate Amino Transferase* 29 U/L (12-35); Blood Urea Nitrogen* 16 mg/dL (7-30); Carbon Dioxide* 29 mmol/L (20-32); Creatinine* 0.9 mg/dL (0.5-1.5); Est. Creatinine Clearance* 67.06; Estimated Glomerular Filt Rate 73 ml/min
[2025-04-08 00:27] LABS: Alkaline Phosphatase* 69 U/L (40-150); Bilirubin Direct* 0.1 mg/dL (0.0-0.5); Bilirubin Total* 0.4 mg/dL (0.1-1.5); Calcium* 9.3 mg/dL (8.4-10.6); Glucose* 94 mg/dL (60-115); Total Protein* 7.0 g/dL (6.0-8.3)
[2025-04-08 00:32] LABS: Appearance Urine Clear (Clear)
[2025-04-08] MEDS: ONDANSETRON 2 MG/ML inj 4 MG IVP (00:37)
[2025-04-08 00:49] LABS: D Dimer Quantitative* 0.21 ug/ml (0.00-0.50)
[2025-04-08] MEDS: METOCLOPRAMIDE HCL 5 MG/ML INJ 10 MG IVP (01:52)
[2025-04-08] MEDS: FAMOTIDINE 10 MG/ML inj 20 MG IVP (01:52)
[2025-04-08 02:26] VITALS: BP 126/68; PULSE 81; RESP 18; TEMP 36.9; O2SAT 98
== END 2025-04-08 02:27 | disposition home or self-care (01) ==
PROVIDERS: Emergency Provider Emergency Medicine; PCP Family Medicine
DX: R10.12 Left upper quadrant pain (principal)
CPT/HCPCS: 36415; 80048; 80076; 81001; 83690; 84484; 85025; 85379; 93005; 96374; 96375; 99284; 99285; J1308; J2405; J2765; J7030

== ENCOUNTER 2025-05-12 13:24 | Emergency (ER) | payer BC, SELFPAY ==
--- OUTSIDE RECORDS SUMMARY | 2012-09-20 02:30 | XMS_ITS | Continuity of Care Document ---
Author Organization ANDRES Fonseca Address [address] [facility] [address] [place] [address] Phone Care Team Providers Care Bleacher Pulp Name Role Phone Cezar PAT MD, Jack Unavailable Unavailab le Medications Medication Instructions Dosage Effective Dates (start - stop) Status Comments ibuprofen 600 mg tablet take 1 tablet (600MG) by oral route 3 times every day with food 600 MG - No Longer Active Zanaflex 2 mg tablet take one half to one tab at bedtime for muscle spasm - No Longer Active Procedures Procedure Date Arthrocentesis/aspir/inj; Fluoroscopic Guidance For Inj - Nonspine Arthrocentesis/aspir/inj; Fluoroscopic Guidance For Inj - Nonspine Offic/outpt E&m Estab Mod-wa 4 13 Inj-s I Jt Arthrog &/ Ane Fluoroscopic Guidance For Inj - Nonspine Offic/outpt E&m Estab Mod Inj Not Lytic-epidur; Cerv/tho 09 Epidurography Rad S&i Injection Three Or More Groups 09 Inj Not Lytic-epidur; Cerv/tho 07 Epidurography Rad S&i Advance Directives Directive Yes / No Effective Date File Name No Information Encounters Encounter Description Practice Location Reason(s) For Visit Diagnoses Date Provider Providers Copied on Encounter ANDRES Fonseca, [address] [facility] [facility] [address], [place], [place], [address], [place] tel:[phone] [facility] No Information 3 Cezar Santiago. [address], [place], [address], [place]. tel:[phone] Referring Provider: Pablo Fernandez MD, [address] [facility], [place], [address]. tel:[phone] [facility], [facility], [address] [facility] [facility] [address], [place], [place], [address], [place] tel:[phone] [facility] No Information 3 Cezar Santiago. [address] [facility], [place], [address], [place]. tel:[phone] Referring Provider: Pablo Fernandez MD, [address] [facility], [place], [address]. tel:[phone] Offic/outpt E&m Estab Mod-hi 4 Raymundo, [facility], [address] [facility] [facility] [address], [place], [place], [address], [place] tel:[phone] [facility] No Information 3 [facility]. [address] [facility] [address], [place], [address], [place]. tel:[phone] Referring Provider: Pablo Fernandez MD, [address] [facility], [place], [address]. tel:[phone] Raymundo, [facility], [address], [place], [place], [address], [place] tel:[phone] [facility] No Information 1 Cezar Santiago. [address] [facility], [place], [address], [place]. tel:[phone] Referring Provider: Jack Fernando, [address] [facility] [address], [place], [address]. tel:[phone] [facility], [facility], [address], [place], [place], [address], [place] tel:[phone] [facility] No Information 1 Cezar Santiago. [address] [place], [address], [place]. tel:[phone] Referring Provider: Jack Fernando, [address], [place], [address]. tel:[phone] [facility], [facility], [address], [place], [place], [address], [place] tel:[phone] [facility] No Information 9 Cezar Santiago. [address] [place], [address], [place]. tel:[phone] Referring Provider: Jack Fernando, [address], [place], [address]. tel:[phone] [facility], [facility], [address], [place], [place], [address], [place] tel:[phone] [facility] No Information 9 Cezar Santiago. [address] [place], [address], [place]. tel:[phone] Referring Provider: Jack Fernando, [address], [place], [address]. tel:[phone] [facility], [facility], [address], [place], [place], [address], [place] tel:[phone] [facility] No Information 7 Cezar Santiago. [address], [place], [address], [place]. tel:[phone] Referring Provider: Jack Fernando, [address], [place], [address]. tel:[phone] Family History Family Member Type Diagnosis Age At Onset No Information Payers Payer name Insurance type Covered alliance party ID león thakkar(s) [facility] [id number] Social History Type Description Quantity Date Captured Comments Sex Female Smoking Status No Information Chief Complaint And Reason For Visit No Information Reason For Referral Reason For Referral No Information History Of Present Illness Encounter Date Complaint History Of Prese nt Illness No Information Functional Status Date Functional Assessmen t No Information Instructions Date Instruction Additional Infor mation No Information Assessments Type Assessment Date No Information Patient Care Teams Name Effective Dates (start - stop) Status Members No Information
--- OUTSIDE RECORDS SUMMARY | 2012-09-20 02:30 | XMS_ITS | Continuity of Care Document ---
Author Organization ANDRES Fonseca Address [address] [place] [address] Phone Care Team Providers Care Videotape Operator Name Role Phone Cezar PAT MD, Jack [...] For Inj - Nonspine Offic/outpt E&m Estab Mod-co 4 13 Inj-s I Jt Arthrog &/ [...] Providers Copied on Encounter ANDRES Fonseca, [address], [place], [place], [address], [place] tel:[phone] [facility] No Information 3 Cezar Santiago. [address], [place], [address], [place]. tel:[phone] Referring Provider: Pablo Fernandez MD, [address] [facility], [place], [address]. tel:[phone] [facility], [facility], [address], [place], [place], [address], [place] tel:[phone] [facility] No Information 3 Cezar Santiago. [address] [facility], [place], [address], [place]. tel:[phone] Referring Provider: Pablo Fernandez MD, [address] [facility], [place], [address]. tel:[phone] Offic/outpt E&m Estab Mod-hi 4 Raymundo, [facility], [address], [place], [place], [address], [place] tel:[phone] [facility] No Information 3 [facility]. [address], [place], [address], [place]. tel:[phone] Referring Provider: Pablo Fernandez MD, [address] [facility], [place], [address]. tel:[phone] Raymundo, [facility], [address], [place], [place], [address], [place] tel:[phone] [facility] No Information 1 Cezar Santiago. [address] [facility], [place], [address], [place]. tel:[phone] Referring Provider: Jack Fernando, [address] [facility] [address] [facility] [address], [place], [address]. tel:[phone] [facility], [facility], [address], [place], [place], [address], [place] tel:[phone] [facility] No Information 1 Cezar Santiago. [address] [place], [address], [place]. tel:[phone] Referring Provider: Jack Fernando, [address], [place], [address]. tel:[phone] [facility], [facility], [address], [place], [place], [address], [place] tel:[phone] [facility] No Information 9 Cezar Santiago. [address] [place], [address], [place]. tel:[phone] Referring Provider: Jack Fernando, [address], [place], [address]. tel:[phone] [facility], [facility], [address], [place], [place], [address], [place] tel:[phone] [facility] No Information 9 Cezar Santiago. [address] [place], [address], [place]. tel:[phone] Referring Provider: Jack Fernando, [address], [place], [address]. tel:[phone] [facility], [facility], [address], [place], [place], [address], [place] tel:[phone] [facility] No Information 7 Cezar Santiago. [address], [place], [address], [place]. tel:[phone] Referring Provider: Jack Fernando, [address], [place], [address]. tel:[phone] Family History Family Member Type Diagnosis Age At Onset No Information Payers Payer name Insurance type Covered republican ID león thakkar(s) [facility] [id number] Social History Type Description Quantity Date Captured [...]
--- OUTSIDE RECORDS SUMMARY | 2025-05-12 13:25 | XMS_ITS | Patient Health Record ---
Author Organization [facility] Address [address] [facility] [place] [id number] Care Team Providers Care Vet Tech Name Role Phone NONE, Use Primary Care Provider UnavailMikal Grayson Unavailable [phone] DO Baldwin Brian R. Unavailable Unavailable Allergies [...] Status W/U Status Risk Notes Problem Overweight (010916699) Overweight (E66.3) Active confirmed Problem Pain in left foot ([id number]) Pain in left foot (M79.672) Active [...]
--- OUTSIDE RECORDS SUMMARY | 2025-05-12 13:26 | XMS_ITS | Clinical Summary ---
Author Organization [facility] Address [address] [place] [id number] Care Team Providers Care Optomechanical Engineer Name Role Phone Jack Zavala MD Primary [...] second interspace of left foot,Toe pain, left [phone] Squared Toed Post op shoe, Small 1 [...] 4 11:27 AM CDT 02/10/20 24 Active sennosides (SENNA) 8.6 mg tablet Take 2 Tablets (17.2 mg) by mouth once daily. 60 Tablet 2 5 5:27 PM CDT 02/08/20 25 Active furosemide (LASIX) 40 mg tablet Take 1 Tablet (40 mg) by mouth once daily. 90 Tablet 1 5 5:07 PM CDT 02/08/20 25 Active levothyroxine (SYNTHROID) 50 mcg tablet Take 1 Tablet (50 mcg) by mouth once daily. 90 Tablet 3 5 2:04 PM CDT 02/08/20 25 Active citalopram 40 mg tablet Take [...] 5 12:37 PM CDT 03/23/20 25 Active metoclopramide (REGLAN) 5 mg tablet Take 1 Tablet (5 mg) by mouth every 8 hours if needed. 7 Tablet 5 10:18 AM CDT 04/08/20 25 Active dextroamphetam ine-amphetamin e (ADDERALL XR) 30 mg Extended-Relea se capsule Take 1 Capsule (30 mg) by mouth once daily in the morning. 30 Capsule 5 2:25 PM CDT 04/14/20 25 Active alendronate (FOSAMAX) 70 mg tablet Take 1 Tablet (70 mg) by mouth once a week in the morning. 12 Tablet 3 5 5:25 PM CDT 04/26/20 25 Active minocycline (MINOCIN) 100 mg capsuleIndicat ions:Acne vulgaris Take 1 Capsule (100 mg) by mouth 2 times daily. 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 Gender Identity Not on file Sexual Orientation [...] exists Colonoscopy through age 75 07/14/2023 07/14/2018 RSV vaccine for adults or (1 - Risk 60-74 years 1-dose series) 2024 COVID-19 vaccine series ( season) 2025 08/12/2021, 02/07/2021, 12/13/2020 Influenza Vaccine (#1) 2025 , 07/04/2019, 05/25/2018, Additional history exists Lipids for age 45-75 04/09/2026 04/09/2021, 06/22/20 Tetanus booster 09/21/2027 09/21/2017, 04/07/2008 Hepatitis C screening for ag e 18-79 Completed 06/22/2018 Medical Devices Implanted Type Area Web Press Operator Device Identifier Shelf Expiration Date Model / Serial / Lot Cmnt Bone 40gm [facility] Ab - [id number] Implanted:Qty: 2 on 04/05/2019 by French Torres MD at [facility] Left: Knee [employer] 10/15/2023 [id number] / / [id number] 29mm Oval Michelle Ii Resurfacing Patellar Component Implanted:Qty: 1 on 04/05/2019 by French Torres MD at [facility] Left: Knee [employer] 12/06/2028 [id number] / / [id number] Size 6 Left Bi-Cruciate Stabilized Journey Ii Bcs Oxinoim Femoral Component Implanted:Qty: 1 on 04/05/2019 by French Torres MD at [facility] Left: Knee [employer] 12/09/2028 [id number] / / [id number] Size 4 Left Journey Nonporous Tibial Baseplate Implanted:Qty: 1 on 04/05/2019 by French Torres MD at [facility] Left: Knee [employer] 11/01/2028 [id number] / / [id number] Left, Size 3-4, 9mm Journey Ii Bcs Xl Pe A/P 48mm M/L 68 Mm Articular Insert Implanted:Qty: 1 on 04/05/2019 by French Torres MD at [facility] Left: Knee [employer] 01/20/2027 [id number] / / [id number] Procedures Procedure Name Priority Date/Time Associated Diagnosis Comments LIPID PANEL W REFLEX MEASURED LDL Routine 04/09/2021 12:10 PM CDT Lipid screening XR MAMMO MICK BILAT SCREEN Routine 09/07/2020 11:20 AM RESTAURANT RECRUITER Visit for screening mammogram COLONOSCOPY 07/14/2018 10:16 AM RESTAURANT RECRUITER ANTI HCV Routine 06/22/2018 10:24 AM RESTAURANT RECRUITER Need for hepatitis C screening test from Last 3 Months or Most Recently Relevant to Health Maintenance Results * (ABNORMAL) LIPID PANEL W REFLEX MEASURED LDL (04/09/2021 12:10 PM CDT) CHOLESTEROL,TOTAL 208(H) 100 - 199 mg/dL 04/09/2021 12:51 PM CDT [facility] TRIGLYCERIDES 144 <150 mg/dL 04/09/2021 12:51 PM CDT [facility] HDL CHOLESTEROL 66 >40 mg/dL 12:51 PM CDT [facility] NON-HDL CHOLESTEROL 142 <145 mg/dl 04/09/2021 12:51 PM CDT [facility] CHOL/HDL RATIO 3.15 <4.50 04/09/2021 12:51 PM CDT [facility] LDL CHOLESTEROL 113 <=130 mg/dL 04/09/2021 12:51 PM CDT [facility] VLDL CHOLESTEROL 29 mg/dL 04/09/20 12:51 PM T [facility] PROVIDER ORDERED STATUS RANDOM 04/09/2021 12:51 PM CDT [facility] Blood BLOOD SPECIMEN / Unknown Venipuncture / Unknown 04/09/2021 12:10 PM CDT 04/09/2021 12:12 PM CDT Rocael Conroy [place] [address] * XR MAMMO MICK BILAT SCREEN (09/07/2020 11:20 AM RESTAURANT RECRUITER) Anatomical Region Laterality Modality BREASTS, Breast Left, Breast Right Bilateral Mammography Impressions 09/10/2020 7:00 AM RESTAURANT RECRUITER There is no radiographic evidence for malignancy. Recommend annual mammograms. A lay language report of this examination will be provided to the patient. MAMMOGRAM ASSESSMENT: ACR 2 Benign Narrative 09/10/2020 7:00 AM RESTAURANT RECRUITER XR MAMMO MICK BILAT SCREEN [[id number]] CLINICAL HISTORY: This is an asymptomatic 54 [...] al Result * COLONOSCOPY (07/14/2018 10:16 AM RESTAURANT RECRUITER) 07/14/2018 10:1 6 AM RESTAURANT RECRUITER Narrative Transcriptions Tod Cantu MD - 07/14/2018 1:14 PM CST Patient Name: Kelly Mcgee Procedure Date: 07/14/2018 Gender: Female Date of : 1965 Admit Type: Ambulatory Procedure: Colonoscopy Proceduralist: Tod Cantu [facility] Indications/Pre-Op Diagnosis: High risk colon cancer surveillance:Personal [...] ORD Final Res ult * ANTI HCV [[id number]] (06/22/2018 10:24 AM RESTAURANT RECRUITER) HEPATITIS C ANTIBODY Non-React sage Non-React sage 06/22/2018 5:59 PM [facility] RECRUITER [facility] Comment:Antibodies to HCV no t detected; does not exclude the possibility of exposure to HCV. Blood BLOOD SPECIMEN / Unknown Venipuncture / Unknown 06/22/2018 10:24 AM RESTAURANT RECRUITER 06/22/2018 10:30 AM RESTAURANT RECRUITER Khoa Abel MD SEND OUTS Final Result [facility] [address] [place] [address], from Last 3 Months or Most Recently Relevant to Health Maintenance [place] [address] Advance Directives * Full Code (Latest Code Status on File) Date Activated Date Inactivated Comments 04/07/2019 11:24 PM 04/09/2019 3:34 PM Question Answer Comments Code Status Discussion: Discussed * Full Code Date Activated Date Inactivated Comments 04/05/2019 6:12 AM 04/07/2019 10:02 PM Question Answer Comments Code Status Discussion: Discussed Care Teams Optomechanical Engineer Relationship Specialty Start Date End Date Jack Zavala MD [address] [place] [address] PCP - General Family Practice 03/31/22
[2025-05-12 13:32] VITALS: BP 106/79; PULSE 93; RESP 18; TEMP 36.9; O2SAT 100; BMI 25.8
--- NOTE | 2025-05-12 13:50 | CRLHL7_ITS ---
For Patients: As a result of the Cures Act, medical imaging exams and procedure reports are released immediately into your electronic medical record. You may view this report before your referring provider. If you have questions, please contact your health care provider. Indication: history of knee pain, clicking sensation Technique: Three views of the right knee Comparison: None Findings/Impression: No acute fracture or malalignment. Slight patella baja. No knee joint effusion. Mild medial compartment joint space narrowing and small medial compartment and patellofemoral compartment osteophytes; otherwise, no additional osteoarthritic degenerative changes. No suspicious osseous lesions. Os fabella. The soft tissues are unremarkable. Dictated by Tres Izaguirre MD @ 05/12/2025 2:49:35 PM (Electronically Signed)
--- NOTE | 2025-05-12 13:51 | ED.GENADULT ---
HPI - General Adult General Date Seen: 05/12/25 Chief complaint: Extremity Pain/Injury, Lower Stated complaint: Hurt right knee Time Seen by Provider: 05/12/25 13:27 History of Present Illness HPI narrative: Patient is a 59-year-old woman here for evaluation of her right knee. She says she has had knee pain for a long time although in the past 2-3 weeks ago and more severe and she has a locking sensation associated with sharp pain. No injuries, no swelling. She put a neoprene brace on and that has helped a little bit. Has not been taking anything for pain. She has a single kidney and therefore does not take NSAIDs, it sounds like she does not take Tylenol because she is concerned it will hurt her liver. No fevers or systemic complaints. Related Data Home Medications ?Medication ?Instructions ?Recorded ?Confirmed cholecalciferol (vitamin D3) 25 25 mcg PO DAILY 02/11/22 05/12/25 mcg (1,000 unit) capsule clindamycin phosphate 1 % lotion 1 applic topical QDAY 04/03/23 05/12/25 Previous Rx's ?Medication ?Instructions ?Recorded epinephrine 0.3 mg/0.3 mL 0.3 ml IM ONCE #2 ea 11/12/23 injection, auto-injector furosemide 40 mg tablet 40 mg PO DAILY #90 tabs 02/07/25 levothyroxine 50 mcg tablet 50 mcg PO DAILY #90 tabs 02/07/25 citalopram 40 mg tablet 40 mg PO HS #90 tabs 02/20/25 plecanatide 3 mg tablet (Trulance) 3 mg PO QDAY #90 tabs 02/23/25 clonazepam 1 mg tablet (Klonopin) 1 mg PO QDAY PRN anxiety #30 tabs 02/28/25 bupropion HCl 300 mg 24 hr tablet, 300 mg PO DAILY #90 tabs 03/20/25 extended release trazodone 100 mg tablet See Rx Instructions .Route 03/20/25 .COMPLEX #135 tabs pregabalin 300 mg capsule 300 mg PO BID #180 caps 03/23/25 metoclopramide HCl 5 mg tablet 5 mg PO Q8H #7 tabs 04/08/25 (Reglan) dextroamphetamine-amphetamine ER 30 mg PO QAM #30 caps 04/14/25 30 mg 24hr capsule,extend release (Adderall XR) methylprednisolone 4 mg tablets in See Rx Instructions PO PER PKG DIR 04/18/25 a dose pack (Medrol (Luke)) #21 ea alendronate 70 mg tablet (Fosamax) 70 mg PO QWEEK #13 tabs 04/26/25 Allergies Allergy/AdvReac Type Severity Reaction Status Date / Time bee venom protein (honey bee) Allergy Severe Anaphylaxis Verified 02/07/25 11:30 PFSH PFS Medical History GERD (gastroesophageal reflux disease) ?K21.9 - Gastro-esophageal reflux disease without esophagitis (ICD-10) Bee allergy status ?Z91.030 - Bee allergy status (ICD-10) Fracture of triquetrum of left wrist ?S62.112A - Displaced fracture of triquetrum [cuneiform] bone, left wrist, initial encounter for closed fracture (ICD-10) ROSITA (generalized anxiety disorder) ?F41.1 - Generalized anxiety disorder (ICD-10) Insomnia ?G47.00 - Insomnia, unspecified (ICD-10) Chronic constipation ?K59.09 - Other constipation (ICD-10) Fracture of head of left femur ?S72.052A - Unspecified fracture of head of left femur, initial encounter for closed fracture (ICD-10) Family history of clotting disorder ?Z83.2 - Family history of diseases of the blood and blood-forming organs and certain disorders involving the immune mechanism (ICD-10) Recurrent major depression ?F33.9 - Major depressive disorder, recurrent, unspecified (ICD-10) Hypothyroidism ?E03.9 - Hypothyroidism, unspecified (ICD-10) Generalized anxiety disorder ?F41.1 - Generalized anxiety disorder (ICD-10) ADHD, predominantly inattentive type ?F90.0 - Attention-deficit hyperactivity disorder, predominantly inattentive type (ICD-10) Traumatic brain injury ?S06.9X9A - Unspecified intracranial injury with loss of consciousness of unspecified duration, initial encounter (ICD-10) Neurofibromatosis ?Q85.00 - Neurofibromatosis, unspecified (ICD-10) Fibromyalgia ?M79.7 - Fibromyalgia (ICD-10) Postoperative deep vein thrombosis (DVT) ?T81.89XA - Other complications of procedures, not elsewhere classified, initial encounter (ICD-10) ?I82.409 - Acute embolism and thrombosis of unspecified deep veins of unspecified lower extremity (ICD-10) Syncope ?R55 - Syncope and collapse (ICD-10) Colon polyps ?K63.5 - Polyp of colon (ICD-10) CKD (chronic kidney disease), stage II ?N18.2 - Chronic kidney disease, stage 2 (mild) (ICD-10) Factor V Leiden ?D68.51 - Activated protein C resistance (ICD-10) Surgical History 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) ?Z96.649 - Presence of unspecified artificial hip joint (ICD-10) Hx of section ?Z98.891 - History of uterine scar from previous surgery (ICD-10) Hx of blepharoplasty ?Z98.890 - Other specified postprocedural states (ICD-10) History of bunionectomy ?Z98.890 - Other specified postprocedural states (ICD-10) Status post left hip replacement (02/09/22) ?Z96.642 - Presence of left artificial hip joint (ICD-10) S/P tendon repair ?Z98.890 - Other specified postprocedural states (ICD-10) Hx laparoscopic cholecystectomy ?Z90.49 - Acquired absence of other specified parts of digestive tract (ICD-10) History of total abdominal hysterectomy and bilateral salpingo-oophorectomy ?Z90.710 - Acquired absence of both cervix and uterus (ICD-10) ?Z90.722 - Acquired absence of ovaries, bilateral (ICD-10) ?Z90.79 - Acquired absence of other genital organ(s) (ICD-10) Hx of appendectomy ?Z90.49 - Acquired absence of other specified parts of digestive tract (ICD-10) S/P tendon repair ?Z98.890 - Other specified postprocedural states (ICD-10) Hx of LASIK ?Z98.890 - Other specified postprocedural states (ICD-10) History of arthroplasty of left knee ?Z96.652 - Presence of left artificial knee joint (ICD-10) Family History Mother Coagulation disorder Depression Osteoarthritis Rheumatoid arthritis Daughter Depression Rheumatoid arthritis Maternal Grandmother Depression Osteoarthritis Thyroid disease Paternal Grandmother Depression Diabetes Social History (Updated 08/01/24 @ 08:57 by Aleah Newton) Narrative: , nonsmoker, full code, THC, social ETOH What is your current living situation?: I presently have a place to live Problems where you live: pests, such as bugs, ants, or mice Problems where you live details: Pt states problem being fixed In the past 12 months, utilities in danger of being shut off: no In past 12 months, lack of transportation kept you from medical appts, meetings, work, or getting things needed for daily living: no In the past 12 mos, have been you worried that your food would run out before you had money to buy more?: never true In the past 12 mos, the food you bought just didn't last and you didn't have money to buy more?: never true Highest level of school completed/degree received: Associate degree: academic program Smoking Status: Former smoker Do you use any of these nicotine containing products: None Second hand tobacco smoke exposure: No How often do you have a drink containing alcohol: monthly or less Alcohol type: hard liquor How many standard drinks containing alcohol do you have on a typical day: 1 or 2 How often do you have six or more drinks on one occasion: Never AUDIT-C Alcohol total score: 1 Non-prescribed substance use: marijuana (any form) Caffeine: Yes How often does anyone, including family, friends and others, physically hurt you: never How often does anyone, including family, friends and others, insult or talk down to you: never How often does anyone, including family, friends and others, threaten you with harm: never How often does anyone, including family, friends and others, scream or curse at you: never Are you using contraception or practicing any form of control: No service: No Health Related Social Needs: Inadequate housing (Z59.1) Exam Narrative: Exam Narrative: Vital signs reviewed In general, alert, well-appearing woman, comfortable at rest. Const: Vital Signs, click to edit/add: Vital Signs - 24 hr 05/12/25 13:32 Temperature 98.4 F Pulse Rate [Right Pulse Oximeter] 93 Respiratory Rate 18 Blood Pressure [Ri ght Upper Arm] 106/79 Pulse Oximetry 100 Oxygen Delivery Me thod Room Air Course Course ED Course: X-rays of the right knee by my review do not show any evidence of fracture, significant effusion, dislocation, or obvious loose body. Radiology report is reviewed, she does have some mild degenerative changes, but no other acute findings. Reviewed this with her. Offered a knee immobilizer but she says she already has 1 at home. She can certainly use that if she finds it more comfortable. We made an appointment for her to follow-up with orthopedics. Because she says the pain is severe when she is trying to walk, will give her a few oxycodone as well. Reviewed with her that certainly fine for her to take Tylenol given that she has no history of known liver disease. Return for worsening such as significant swelling, redness, fever etcetera. Vital Signs Vital signs: Initial Vital Signs Temperature 98.4 F 05/12/25 13:32 Temperature Source Temporal Artery Scan 05/12/25 13:32 Pulse Rate 93 05/12/25 13:32 Pulse Rhythm Regular 05/12/25 13:32 Pulse Strength 2+ Slightly Diminished 05/12/25 13:32 Respiratory Rate 18 05/12/25 13:32 Blood Pressure 106/79 05/12/25 13:32 Blood Pressure Mean 88 05/12/25 13:32 Blood Pressure Position Sitting 05/12/25 13:32 Pulse Oximetry 100 05/12/25 13:32 Oxygen Delivery Method Room Air 05/12/25 13:32 Vital Signs Temperature 98.4 F 05/12/25 13:32 Pulse Rate 93 05/12/25 13:32 Respiratory Rate 18 05/12/25 13:32 Blood Pressure 106/79 05/12/25 13:32 Pulse Oximetry 100 05/12/25 13:32 Oxygen Delivery Method Room Air 05/12/25 13:32 Temperature 98.4 F 05/12/25 13:32 Pulse Rate 93 05/12/25 13:32 Respiratory Rate 18 05/12/25 13:32 Blood Pressure 106/79 05/12/25 13:32 Pulse Oximetry 100 05/12/25 13:32 Oxygen Delivery Method Room Air 05/12/25 13:32 Medical Decision Making Imaging Data Knee x-ray: Attestation: I have reviewed the pertinent imaging results. Radiologist's impression: Patient: [facility] Facility: [facility] Site . Site : 1965 Study: XRay-Knee Right -05/12/2025 2:20:46 PM Ordering Physician: Manju Madrid Final Report: Indication: history of knee pain, clicking sensation Technique: Three views of the right knee Comparison: None Findings/Impression: No acute fracture or malalignment. Slight patella baja. No knee joint effusion. Mild medial compartment joint space narrowing and small medial compartment and patellofemoral compartment osteophytes; otherwise, no additional osteoarthritic degenerative changes. No suspicious osseous lesions. Os fabella. The soft tissues are unremarkable. Discharge Plan Discharge Clinical Impression: Knee pain, right Patient Disposition: Home, Self-Care Condition: Stable Additional Instructions: You can use your neoprene knee brace, or knee immobilizer that you have at home if you feel that is more supportive. It is perfectly fine for you to take Tylenol, 1000 mg up to 3 times daily. If needed for severe pain, the does oxycodone as prescribed. We have made a follow-up appointment for you with orthopedics. Your x-rays today do not show a clear cause for her pain. You may need additional imaging such as an when you see orthopedics. Return any time if you of new symptoms such as significant swelling, redness, fever or other significant changes. Prescriptions: No Action clindamycin phosphate 1 % lotion 1 applic topical QDAY cholecalciferol (vitamin D3) 25 mcg (1,000 unit) capsule 25 mcg PO DAILY metoclopramide HCl [Reglan] 5 mg tablet 5 mg PO Q8H Qty: 7 0RF epinephrine 0.3 mg/0.3 mL auto-injector 0.3 ml IM ONCE Qty: 2 2RF Rx Instructions: as a single dose; may repeat once furosemide 40 mg tablet 40 mg PO DAILY Qty: 90 1RF levothyroxine 50 mcg tablet 50 mcg PO DAILY Qty: 90 3RF citalopram 40 mg tablet 40 mg PO HS Qty: 90 1RF Trulance 3 mg tablet 3 mg PO QDAY Qty: 90 1RF clonazepam [Klonopin] 1 mg tablet 1 mg PO QDAY PRN (Reason: anxiety) Qty: 30 0RF trazodone 100 mg tablet See Rx Instructions .ROUTE .COMPLEX Qty: 135 1RF Dose Instruction: Take 1.5 Tablets (150 mg) by mouth at bedtime. Rx Instructions: Take 1.5 Tablets (150 mg) by mouth at bedtime. bupropion HCl 300 mg tablet extended release 24 hr 300 mg PO DAILY Qty: 90 1RF pregabalin 300 mg capsule 300 mg PO BID Qty: 180 1RF dextroamphetamine-amphetamine [Adderall XR] 30 mg capsule,extended release 24hr 30 mg PO QAM Qty: 30 0RF methylprednisolone [Medrol (Luke)] 4 mg tablets,dose pack See Rx Instructions PO PER PKG DIR Qty: 21 0RF Rx Instructions: PO PER PKG DIR for 6 days alendronate [Fosamax] 70 mg tablet 70 mg PO QWEEK Qty: 13 3RF Follow Up/Referrals: Jack Zavala MD [Primary Care Provider, Family Practice] Stand Alone Forms[facility] Inst[facility]
== END 2025-05-12 15:04 | disposition home or self-care (01) ==
PROVIDERS: Emergency Provider Emergency Medicine; PCP Family Medicine
DX: M25.561 Pain in right knee (principal)
CPT/HCPCS: 73562; 99283; 99284

== ENCOUNTER 2025-05-30 10:13 | Outpatient (CLI) | payer BC, SELFPAY ==
--- NOTE | 2025-05-30 10:15 | MR_ITS ---
[facility] [address] [facility] [address] Phone:?[phone] Fax:?[phone] Referring Physician Information: George Cosme M.D. [id number] [address] Phone:?[phone] Fax:?[phone] Patient:Clive Mcgee D.O.B:?1965 Sex:?Female Phone:?[phone] [facility] MRN:?[id number] Exam Date:?05/30/2025 EXAM: MRI EXAMINATION OF THE RIGHT KNEE CLINICAL INFORMATION: Right knee pain. Evaluate meniscus tear. Evaluate loose body. TECHNICAL INFORMATION: Coronal PD and STIR. Axial PD and T2 fat saturation. Sagittal PD and PD fat saturation images acquired. No prior studies for comparison. INTERPRETATION: Bones: Mild subchondral edema signal involves the peripheral weight-bearing surface of the medial femoral condyle. Mild subchondral cystic changes of the patellofemoral compartment. No occult fracture or AVN. No other abnormal bone marrow edema pattern is identified. Ligaments and tendons: The medial collateral ligament is intact, without acute sprain or tear. The iliotibial band, fibular collateral ligament, biceps femoris tendon and popliteus tendon all are intact. The anterior cruciate ligament is intact without acute sprain or tear. The posterior cruciate ligament is intact. Extensor Mechanism: The patellar and quadriceps tendons are intact. The medial and lateral retinacula are intact. Knee Joint: Small knee joint effusion. There is a slender moderate sized popliteal cyst. Series 3 image 22 as well as series 7 image 25 demonstrate a 7 mm ossific spur or ossific loose body along side the posterior lateral aspect of the medial tibial plateau. Medial Compartment: Broad full-thickness cartilage loss involves the weightbearing surface of the medial femoral condyle. Intrasubstance signal within the body and posterior horn medial meniscus. No convincing surface extension as tear. No displaced flap fragment or parameniscal cyst. Lateral Compartment: There is no evidence for discrete lateral meniscal tear. No displaced flap fragment or parameniscal cyst. Approximate 1.5 x 1 cm segment of grade II to III chondromalacia involves the central weightbearing surface of the lateral femoral condyle. No other significant changes of chondromalacia. Patellofemoral articulation: Correlation and associated full-thickness cartilage loss along the central midline patella and all along the adjacent portion of the medial facet. There grade 2-3 changes of chondromalacia centered midline along the trochlear groove. CONCLUSION: 1. Broad full-thickness cartilage loss involves the weightbearing surface of the medial femoral condyle. 2. Intrasubstance signal appears related to mucoid degeneration involving the body and posterior horn medial meniscus. No convincing surface extension as tear. 3. No lateral meniscus tear. There is a moderate-sized segment of grade II to III chondromalacia involving the femoral condyle. 4. Small knee joint effusion. There is a 7 mm ossific focus representing either bone spur or ossific loose body along side the posterior lateral aspect of the medial tibial plateau. 5. Patellofemoral chondromalacia. This includes full-thickness cartilage loss loss along the central midline patella and along the adjacent medial facet. KES Electronically signed on 05/30/2025 3:06:00 PM by Cisco Jackson M.D.
== END 2025-05-30 10:14 | disposition home or self-care (01) ==
LOC: MRI 10:13
PROVIDERS: PCP Family Medicine; Visit Provider Orthopaedic Surgery
DX: M25.561 Pain in right knee (principal); M22.41 Chondromalacia patellae, right knee; M25.461 Effusion, right knee; M23.40 Loose body in knee, unspecified knee; S83.209A Unspecified tear of unspecified meniscus, current injury, unspecified knee, initial encounter; G89.29 Other chronic pain
CPT/HCPCS: 73721

== ENCOUNTER 2025-05-31 12:10 | Outpatient (CLI) | payer BC, SELFPAY ==
--- NOTE | 2025-05-31 12:15 | CRLHL7_ITS ---
For Patients: As a result of the Century Cures Act, medical imaging exams and procedure reports are released immediately into your electronic medical record. You may view this report before your referring provider. If you have questions, please contact your health care provider. Indication: Radiculopathy. Technique: Multiplanar, multisequence MRI of the lumbar spine was performed without intravenous contrast. Comparison: Lumbar spine radiographs 02/07/2025. Findings: Lumbosacral transitional anatomy. Transitional segment is labeled as S1, with lumbarization. The vertebral body heights are maintained without evidence of fracture. There is no discrete T1 hypointense marrow infiltrating process. The conus medullaris terminates at L1-2, normal. Cauda equina appears unremarkable. T12-L1: No spinal canal or neural foraminal stenosis. L1-2: No spinal canal or neural foraminal stenosis. L2-3: No spinal canal or neural foraminal stenosis. L3-4: There is an 11 mm synovial cyst arising from the left facet joint extending into the spinal canal resulting in severe left lateral recess stenosis. This encroaches upon the descending left L4 nerves. Mild neural foraminal narrowing. L4-5: Grade 1 anterolisthesis. Uncovering the disc coupled with facet arthropathy results in mild spinal canal narrowing. Mild neural foraminal narrowing. Moderate facet arthropathy. L5-S1: Trace anterolisthesis. Disc degeneration. Disc bulge results in mild left lateral recess narrowing. [id number] left and mild right neural foraminal narrowing. Edema involving the L5 pedicles suggesting stress reaction/injury. Mild sacroiliac joint osteoarthritis. Impression: 1. Lumbosacral transitional anatomy. Transitional segment is labeled as S1, with lumbarization. Careful clinical correlation and radiographic localization is recommended prior to any planned surgical intervention. 2. At L3-4, large left intraspinal synovial cyst resulting in severe left lateral recess stenosis encroaching upon the descending left L4 nerves. At L4-5, grade 1 anterolisthesis with mild spinal canal and neural foraminal narrowing. 3. At L5-S1, mild to moderate left neural foraminal narrowing. 4. Mild edema involving the L5 pedicles suggesting stress reaction/injury. Dictated by Devante Vásquez MD @ 05/31/2025 3:17:59 PM (Electronically Signed)
== END 2025-05-31 12:11 | disposition home or self-care (01) ==
LOC: MRI 12:11
PROVIDERS: PCP Family Medicine; Visit Provider Family Medicine
DX: M54.16 Radiculopathy, lumbar region (principal); M48.061 Spinal stenosis, lumbar region without neurogenic claudication; M51.27 Other intervertebral disc displacement, lumbosacral region
CPT/HCPCS: 72148

== ENCOUNTER 2025-07-22 18:40 | Emergency (ER) | payer BC, SELFPAY ==
[2025-07-22] VITALS (26 sets, daily range): BP systolic 84–119; BP diastolic 56–73; PULSE 71–92; RESP 10–20; TEMP 36.3; O2SAT 89–100; BMI 27.1
--- OUTSIDE RECORDS SUMMARY | 2025-07-22 18:43 | XMS_ITS | Clinical Summary ---
Author Organization [facility] Address [address] [place] [address] Care Team Providers Care Millinery Worker Name Role Phone Jack Zavala MD Primary [...] second interspace of left foot,Toe pain, left [phone] Squared Toed Post op shoe, Small 1 [...] mouth once daily. 90 Tablet 3 5 11:17 AM CDT 02/08/20 25 Active citalopram (CELEXA) 40 mg tablet Take 1 Tablet (40 mg) by mouth at bedtime. 90 Tablet 1 5 5:28 PM CDT 02/21/20 25 Active plecanatide (Trulance) 3 mg tab Take 1 Tablet (3mg) by mouth once daily. 90 Tablet 1 5 9:56 AM CDT 02/24/20 25 Active clonazePAM (KLONOPIN) 1 mg tablet Take 1 Tablet (1 mg) by mouth once daily if needed for anxiety. 30 Tablet 5 9:44 AM CDT 02/29/20 25 Active buPROPion (WELLBUTRIN XL) 300 mg Extended-Relea se tablet Take 1 Tablet (300 mg) by mouth once daily. 90 Tablet 1 5 4:18 PM CDT 03/20/20 25 Active traZODone (DESYREL) 100 mg tablet Take 1.5 Tablets (150 mg) by mouth at bedtime. 135 Tablet 1 5 4:18 PM CDT 03/20/20 25 Active pregabalin (LYRICA) 300 mg capsule Take 1 Capsule (300 mg) by mouth two times daily. 180 Capsule 1 5 12:37 PM CDT 03/23/20 25 Active metoclopramide (REGLAN) 5 mg tablet Take 1 Tablet (5 mg) by mouth every 8 hours if needed. 7 Tablet 5 10:18 AM CDT 04/08/20 25 Active alendronate (FOSAMAX) 70 mg tablet Take 1 Tablet (70 mg) by mouth once a week in the morning. 12 Tablet 3 5 12:57 PM MIRROR FINISHING MACHINE OPERATOR 04/26/20 25 Active dextroamphetam ine-amphetamin e (ADDERALL XR) 30 mg Extended-Relea se capsule Take 1 Capsule (30 mg) by mouth once daily in the morning. 30 Capsule 5 4:18 PM CDT 06/11/20 25 Active dextroamphetam ine-amphetamin e (ADDERALL XR) 30 mg Extended-Relea se capsule Take 1 Capsule (30 mg) by mouth once daily in the morning. 30 Capsule 07/11/20 25 Active minocycline (MINOCIN) 100 mg capsuleIndicat ions:Acne vulgaris Take 1 Capsule (100 mg) by mouth 2 times daily. 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 Not on file Not on file Not on file Not on file Not on file Not on file Not on file Last Filed Vital Signs [...] Done Comments HIV for age 15-65 10/26/1979 Hepatitis B series for 19+ ( 2 of 3 - 19+ 3-dose series) 03/14/2004 02/15/2004 Pneumococcal series for age 50+ (1 of 1 - PCV) 2014 RSV vaccine for adults or (1 - Risk 50-74 years 1-dose series) 2014 Zoster (shingles) series for age 50+ (2 of 2) 08/21/2020 06/26/2020 Mammogram for age 45-75 09/07/2021 09/07/2020, 08/24 Depression screening for age 12+ 01/11/2022 01/11/2021, 01/08/2021, 10/17/2019, Additional history exists BMI (ht and wt on same day) for age 18+ 04/09/2022 04/09/2021, 01/11/2021, 01/08/2021, Additional history exists Colonoscopy through age 75 07/14/2023 07/14/2018 COVID-19 vaccine series ( season) 2025 08/12/2021, 02/07/2021, 12/13/2020 Influenza Vaccine (#1) 2025 , 07/04/2019, 05/25/2018, Additional history exists Lipids for age 45-75 04/09/2026 04/09/2021, 06/22/20 Tetanus booster 09/21/2027 09/21/2017, 04/07/2008 Hepatitis C screening for ag e 18-79 Completed 06/22/2018 Medical Devices Implanted Type Area Branch Or Department Chief Librarian Device Identifier Shelf Expiration Date Model / Serial / Lot Cmnt Bone 40gm Rally Ab - [id number] Implanted:Qty: 2 on 04/05/2019 by French Torres MD at [facility] Left: Knee [employer] 10/15/2023 [id number] / / [id number] 29mm Oval Michelle Ii Resurfacing Patellar Component Implanted:Qty: 1 on 04/05/2019 by French Torres MD at [facility] Left: Knee [employer] 12/06/2028 [id number] / / [id number] Size 6 Left Bi-Cruciate Stabilized Journey Ii Bcs Oxinoim Femoral Component Implanted:Qty: 1 on 04/05/2019 by French Torres MD at [facility] Left: Knee [employer] 12/09/2028 [id number] / / [id number] Size 4 Left Journey Nonporous Tibial Baseplate Implanted:Qty: 1 on 04/05/2019 by French Torres MD at [facility] Left: Knee [employer] 11/01/2028 [id number] / / [id number] Left, Size 3-4, 9mm Journey Ii Bcs Xl Pe A/P 48mm M/L 68 Mm Articular Insert Implanted:Qty: 1 on 04/05/2019 by French Torres MD at [facility] Left: Knee [employer] 01/20/2027 [id number] / / [id number] Procedures Procedure Name Priority Date/Time Associated Diagnosis Comments LIPID PANEL W REFLEX MEASURED LDL Routine 04/09/2021 12:10 PM CDT Lipid screening XR MAMMO MICK BILAT SCREEN Routine 09/07/2020 11:20 AM MIRROR FINISHING MACHINE OPERATOR Visit for screening mammogram COLONOSCOPY 07/14/2018 10:16 AM MIRROR FINISHING MACHINE OPERATOR ANTI HCV Routine 06/22/2018 10:24 AM MIRROR FINISHING MACHINE OPERATOR Need for hepatitis C screening test from Last 3 Months or Most Recently Relevant to Health Maintenance Results * (ABNORMAL) LIPID PANEL W REFLEX MEASURED LDL (04/09/2021 12:10 PM CDT) CHOLESTEROL,TOTAL 208(H) 100 - 199 mg/dL 04/09/2021 12:51 PM CDT [facility] TRIGLYCERIDES 144 <150 mg/dL 04/09/2021 12:51 PM CDT [facility] HDL CHOLESTEROL 66 >40 mg/dL 12:51 PM CDT [facility] NON-HDL CHOLESTEROL 142 <145 mg/dl 04/09/2021 12:51 PM CDT [facility] CHOL/HDL RATIO 3.15 <4.50 04/09/2021 12:51 PM CDT [facility] LDL CHOLESTEROL 113 <=130 mg/dL 04/09/2021 12:51 PM CDT [facility] VLDL CHOLESTEROL 29 mg/dL 04/09/20 12:51 PM CDT [facility] PROVIDER ORDERED STATUS RANDOM 04/09/2021 12:51 PM CDT [facility] Blood BLOOD SPECIMEN / Unknown Venipuncture / Unknown 04/09/2021 12:10 PM CDT 04/09/2021 12:12 PM CDT us Rocael Conroy DO CHEMISTRY Final Res ult [address] [address] * XR MAMMO MICK BILAT SCREEN (09/07/2020 11:20 AM MIRROR FINISHING MACHINE OPERATOR) Anatomical Region Laterality Modality BREASTS, Breast Left, Breast Right Bilateral Mammography Impressions 09/10/2020 7:00 AM MIRROR FINISHING MACHINE OPERATOR There is no radiographic evidence for malignancy. Recommend annual mammograms. A lay language report of this examination will be provided to the patient. MAMMOGRAM ASSESSMENT: ACR 2 Benign Narrative 09/10/2020 7:00 AM MIRROR FINISHING MACHINE OPERATOR XR MAMMO MICK BILAT SCREEN [[id number]] CLINICAL HISTORY: This is an asymptomatic 54 [...] al Result * COLONOSCOPY (07/14/2018 10:16 AM MIRROR FINISHING MACHINE OPERATOR) 07/14/2018 10:1 6 AM MIRROR FINISHING MACHINE OPERATOR Narrative Transcriptions Tod Cantu MD - 07/14/2018 [...] ORD Final Res ult * ANTI HCV [[id number]] (06/22/2018 10:24 AM MIRROR FINISHING MACHINE OPERATOR) HEPATITIS C ANTIBODY Non-React sage Non-React sage 06/22/2018 5:59 PM MIRROR FINISHING MACHINE OPERATOR [facility] Comment:Antibodies to HCV no t detected; does not exclude the possibility of exposure to HCV. Blood BLOOD SPECIMEN / Unknown Venipuncture / Unknown 06/22/2018 10:24 AM MIRROR FINISHING MACHINE OPERATOR 06/22/2018 10:30 AM MIRROR FINISHING MACHINE OPERATOR us Khoa Abel MD SEND OUTS Final Result [facility] [address] [place] [address], [place] from Last 3 Months or Most Recently [...] Comments Code Status Discussion: Discussed Care Teams Millinery Worker Relationship Specialty Start Date End Date Jack Zavala MD [address] [place] [address] PCP - General Family Practice 03/31/22
--- OUTSIDE RECORDS SUMMARY | 2025-07-22 18:43 | XMS_ITS | Patient Health Record ---
Author Organization [email or web address] Address [address] [facility] [place] [id number] Care Team Providers Care Warranty Manager Name Role Phone NONE, Use Primary Care Provider Mikal Carlson Unavailable [phone] DO Baldwin Brian R. Unavailable Unavailable Allergies Allergen (clinical drug ingredient) Drug/Non Drug Allergy documented on EMR Reaction Allergy Type Onset Date Status Moderna COVID-19 Vaccine Unknown Drug Allergy Active Reason For Referral No Information Medications Medication SIG (Take, Route, Frequency, Duration) Notes Start Date End Date Status Wellbutrin Active Synthroid Active traZODone HCl Active CeleXA Active Mobic 15 MG Tablet 1 tablet Orally Once a day; Duration: 30 day(s) 10/09/2022 Active Minocycline HCl Acti ve Stool Softener & Laxative Active Social History Tobacco Use: Social History Observation Description Date Details (start date - stop date) Never Smoker NA - NA Social History Tobacco/Alcohol/Drugs: Social Info Question Answer Notes Tobacco Use/Smoking Are you a nonsmoker Additional Findings: Tobacco Non-User Current no n-smoker Alcohol screen Social Info Question Answer Notes Alcohol Screen Did you have a drink containing alcohol in the past year? Yes How often did you have a drink containing alcohol in the past year? Monthly or less (1 point) How many drinks did you have on a typical day when you were drinking in the past year? 1 or 2 drinks (0 point) How often did you have 6 or more drinks on one occasion in the past year? Never (0 point) Points 1 Interpretation Negative Additional Details Category Social Info Options Details Last Menstral Period Last Menstral Period: Hysterectomy Tobacco/Alcohol/Drugs: Alcohol: occas ional Drugs: occasional - mar ijuana Tetanus History Last Tetanus shot: Up to date: Problems Problem Type SNOMED Code ICD Code Onset Dates Problem Status W/U Status Risk Notes Problem Overweight (144990332) Overweight (E66.3) Active confirmed Problem Pain in left foot (09195924480899 7) Pain in left foot (M79.672) Active [...]
[2025-07-22 19:22] LABS: Lactate* 1.7 mmol/L (0.5-1.9)
[2025-07-22 19:24] LABS: Hematocrit* 46.1 % (33.0-51.0); Hemoglobin* 16.0 gm/dL (12.0-16.0); Immature Granulocytes Abs Auto 0.02 K/uL (0.00-0.30); Immature Granulocytes Pct Auto 0.2 %; Lymphocytes Absolute Auto 1.67 K/uL (0.90-2.90); Mean Corpuscular HGB Conc 35 gm/dL (32-36); Mean Corpuscular Hemoglobin 31 pg (26-34); Mean Corpuscular Volume 90 fL (80-100); RDW Coefficient of Variation % 12.6 % (11.5-15.5); Red Blood Count* 5.13 m/uL (4.00-5.20); Slide Review Reflex No; White Blood Count* 8.19 K/uL (4.50-11.00)
--- NOTE | 2025-07-22 19:36 | ED_ITS ---
HPI - General Adult General Chief complaint: Chest Pain Stated complaint: Chest pain Time Seen by Provider: 07/22/25 19:25 History of Present Illness HPI narrative: This 59-year-old female comes in reporting left upper abdominal pain for the past couple days. She states that it is constant and it is getting worse. She states that it feels like pancreatitis which she has had before. She does not use alcohol and has had her gallbladder removed. She is taking AG LP 1 medication and had it switched recently to a different 1. She reports nausea and vomiting and also indicates chest pain. She does not have any exercise intolerance prior to this. Related Data Home Medications ?Medication ?Instructions ?Recorded ?Confirmed cholecalciferol (vitamin D3) 25 25 mcg PO DAILY 06/05/25 mcg (1,000 unit) capsule clindamycin phosphate 1 % lotion 1 applic topical QDAY 04/03/23 06/05/25 Previous Rx's ?Medication ?Instructions ?Recorded epinephrine 0.3 mg/0.3 mL 0.3 ml IM ONCE #2 ea 4 injection, auto-injector furosemide 40 mg tablet 40 mg PO DAILY #90 tabs 01/16 12/09 levothyroxine 50 mcg tablet 50 mcg PO DAILY #90 tabs 0 02/07/25 citalopram 40 mg tablet 40 mg PO HS #90 tabs 5 plecanatide 3 mg tablet (Trulance) 3 mg PO QDAY #90 ta bs 02/23/25 clonazepam 1 mg tablet (Klonopin) 1 mg PO QDAY PRN anx iety #30 tabs 02/28/25 bupropion HCl 300 mg 24 hr tablet, 300 mg PO DAILY #90 tabs 03/20/25 extended release trazodone 100 mg tablet See Rx Instructions .Route 0 03/20/25 .COMPLEX #135 tabs pregabalin 300 mg capsule 300 mg PO BID #180 caps 03/10 metoclopramide HCl 5 mg tablet 5 mg PO Q8H #7 tabs (Reglan) alendronate 70 mg tablet (Fosamax) 70 mg PO QWEEK #13 tabs 04/26/25 dextroamphetamine-amphetamine ER 30 mg PO QAM #30 caps 06/11/25 30 mg 24hr capsule,extend release (Adderall XR) dextroamphetamine-amphetamine ER 30 mg PO QAM #30 caps 06/11/25 30 mg 24hr capsule,extend release (Adderall XR) Allergies Allergy/AdvReac Type Severity Reaction Status Date / Time bee venom protein (honey bee) Allergy Severe Anaphylaxis Verified 06/05/25 14:04 Review of Systems Status of ROS: Reports: 10 or more systems reviewed and unremarkable except as noted in History and below Narrative: Constitutional: No fevers, no weight gain or loss. Eyes: No discharge. No vision changes. HENT: No congestion, no sore throat, no ear pain. Cardiovascular: No palpitations. Respiratory: No shortness of breath, no wheezes, no cough. Gastrointestinal: Abdominal pain with vomiting. Genitourinary: No dysuria, no hematuria. Musculoskeletal: Normal range of motion. Skin: No rashes, no pruritis. Neurological: No dizziness, weakness, sensory change, speech change. Endo/Heme/Allergies: No bruising or bleeding. No polydipsia. Pysch: no suicidality, no anxiety, no insomnia. All other systems reviewed and are negative. [facility] Medical History GERD (gastroesophageal reflux disease) ?K21.9 - Gastro-esophageal reflux disease without esophagitis (ICD-10) Bee allergy status ?Z91.030 - Bee allergy status (ICD-10) Fracture of triquetrum of left wrist ?S62.112A - Displaced fracture of triquetrum [cuneiform] bone, left wrist, initial encounter for closed fracture (ICD-10) ROSITA (generalized anxiety disorder) ?F41.1 - Generalized anxiety disorder (ICD-10) Insomnia ?G47.00 - Insomnia, unspecified (ICD-10) Chronic constipation ?K59.09 - Other constipation (ICD-10) Fracture of head of left femur ?S72.052A - Unspecified fracture of head of left femur, initial encounter for closed fracture (ICD-10) Family history of clotting disorder ?Z83.2 - Family history of diseases of the blood and blood-forming organs and certain disorders involving the immune mechanism (ICD-10) Recurrent major depression ?F33.9 - Major depressive disorder, recurrent, unspecified (ICD-10) Hypothyroidism ?E03.9 - Hypothyroidism, unspecified (ICD-10) Generalized anxiety disorder ?F41.1 - Generalized anxiety disorder (ICD-10) ADHD, predominantly inattentive type ?F90.0 - Attention-deficit hyperactivity disorder, predominantly inattentive type (ICD-10) Traumatic brain injury ?S06.9X9A - Unspecified intracranial injury with loss of consciousness of unspecified duration, initial encounter (ICD-10) Neurofibromatosis ?Q85.00 - Neurofibromatosis, unspecified (ICD-10) Fibromyalgia ?M79.7 - Fibromyalgia (ICD-10) Postoperative deep vein thrombosis (DVT) ?T81.89XA - Other complications of procedures, not elsewhere classified, initial encounter (ICD-10) ?I82.409 - Acute embolism and thrombosis of unspecified deep veins of unspecified lower extremity (ICD-10) Syncope ?R55 - Syncope and collapse (ICD-10) Colon polyps ?K63.5 - Polyp of colon (ICD-10) CKD (chronic kidney disease), stage II ?N18.2 - Chronic kidney disease, stage 2 (mild) (ICD-10) Factor V Leiden ?D68.51 - Activated protein C resistance (ICD-10) Surgical History 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) ?Z96.649 - Presence of unspecified artificial hip joint (ICD-10) Hx of section ?Z98.891 - History of uterine scar from previous surgery (ICD-10) Hx of blepharoplasty ?Z98.890 - Other specified postprocedural states (ICD-10) History of bunionectomy ?Z98.890 - Other specified postprocedural states (ICD-10) Status post left hip replacement (02/09/22) ?Z96.642 - Presence of left artificial hip joint (ICD-10) S/P tendon repair ?Z98.890 - Other specified postprocedural states (ICD-10) Hx laparoscopic cholecystectomy ?Z90.49 - Acquired absence of other specified parts of digestive tract (ICD- 10) History of total abdominal hysterectomy and bilateral salpingo-oophorectomy ?Z90.710 - Acquired absence of both cervix and uterus (ICD-10) ?Z90.722 - Acquired absence of ovaries, bilateral (ICD-10) ?Z90.79 - Acquired absence of other genital organ(s) (ICD-10) Hx of appendectomy ?Z90.49 - Acquired absence of other specified parts of digestive tract (ICD- 10) S/P tendon repair ?Z98.890 - Other specified postprocedural states (ICD-10) Hx of LASIK ?Z98.890 - Other specified postprocedural states (ICD-10) History of arthroplasty of left knee ?Z96.652 - Presence of left artificial knee joint (ICD-10) Family History Mother Coagulation disorder Depression Osteoarthritis Rheumatoid arthritis Daughter Depression Rheumatoid arthritis Maternal Grandmother Depression Osteoarthritis Thyroid disease Paternal Grandmother Depression Diabetes Social History Narrative: , nonsmoker, full code, THC, social ETOH What is your current living situation?: I presently have a place to live Problems where you live: pests, such as bugs, ants, or mice Problems where you live details: Pt states problem being fixed In the past 12 months, utilities in danger of being shut off: no In past 12 months, lack of transportation kept you from medical appts, meetings, work, or getting things needed for daily living: no In the past 12 mos, have been you worried that your food would run out before you had money to buy more?: never true In the past 12 mos, the food you bought just didn't last and you didn't have money to buy more?: never true Highest level of school completed/degree received: Associate degree: academic program Smoking Status: Former smoker Do you use any of these nicotine containing products: None Second hand tobacco smoke exposure: No How often do you have a drink containing alcohol: monthly or less Alcohol type: hard liquor How many standard drinks containing alcohol do you have on a typical day: 1 or 2 How often do you have six or more drinks on one occasion: Never AUDIT-C Alcohol total score: 1 Non-prescribed substance use: marijuana (any form) Caffeine: Yes How often does anyone, including family, friends and others, physically hurt you : never How often does anyone, including family, friends and others, insult or talk down to you: never How often does anyone, including family, friends and others, threaten you with harm: never How often does anyone, including family, friends and others, scream or curse at you: never Are you using contraception or practicing any form of control: No service: No Health Related Social Needs: Inadequate housing (Z59.1) Exam Narrative: Exam Narrative: Constitutional: Well-developed, well-nourished, no acute distress. HEENT: Normocephalic, atraumatic. Neck: Normal range of motion. Nontender. Supple. Heart: Regular. No murmurs. Normal rate. Intact distal pulses. Lungs: Clear to auscultation. No chest discomfort. No wheezes, rhonchi, or rales. Abdomen: Normal bowel sounds. Diffuse pain throughout the abdomen but increased in the left upper quadrant. No rebound tenderness. Genitalia: Deferred. Back: No midline tenderness. Normal range of motion. Extremities: Normal range of motion. No injury. Skin: Intact. No rash. Warm. No erythema or pallor. Neurologic: No altered sensation. No weakness. Alert and oriented. Psychiatric: No suicidality. No anxiety or depression. No insomnia. Nursing notes and vitals signs are reviewed. Const: Vital Signs, click to edit/add: Vital Signs - 24 hr 07/22/25 18:51 07/22/25 19:04 07/22/25 19:06 Temperature 97.3 F L Pulse Rate 79 78 Pulse Rate [Pulse Oximeter] 92 Respiratory Rate 12 12 Blood Pressure 104/66 Blood Pressure [Ri ght Upper Arm] 84/56 L Pulse Oximetry 98 99 [facility] Room Air 07/22/25 19:07 07/22/25 19:15 07/22/25 19:18 Temperature Pulse Rate 78 84 Pulse Rate [Pulse Oximeter] Respiratory Rate 11 L 17 Blood Pressure Blood Pressure [Ri ght Upper Arm] Pulse Oximetry 100 99 99 Oxygen Delivery Ny thod 07/22/25 19:30 07/22/25 19:32 07/22/25 19:45 Temperature Pulse Rate 79 79 75 Pulse Rate [Pulse Oximeter] Respiratory Rate 15 14 Blood Pressure 105/72 Blood Pressure [Ri ght Upper Arm] Pulse Oximetry 99 98 [address] [facility] 07/22/25 19:55 07/22/25 20:00 07/22/25 20:02 Temperature Pulse Rate 71 78 74 Pulse Rate [Pulse Oximeter] Respiratory Rate 11 L 13 14 Blood Pressure 106/68 109/73 Blood Pressure [Ri ght Upper Arm] Pulse Oximetry 98 98 98 Oxygen Delivery Me thod Room Air 07/22/25 20:03 07/22/25 20:15 07/22/25 20:30 Temperature Pulse Rate 73 73 76 Pulse Rate [Pulse Oximeter] Respiratory Rate Blood Pressure Blood Pressure [Ri ght Upper Arm] Pulse Oximetry 97 96 94 Oxygen Delivery Me thod 07/22/25 20:32 07/22/25 20:45 Temperature Pulse Rate 75 78 Pulse Rate [Pulse Oximeter] Respiratory Rate 12 Blood Pressure 119/72 Blood Pressure [Ri ght Upper Arm] Pulse Oximetry 95 89 Oxygen Delivery Me thod Room Air Course Vital Signs Vital signs: Initial Vital Signs Temperature 97.3 F L 07/22/25 18:51 Temperature Source Temporal Artery Scan 07/22/25 18:51 Pulse Rate 92 07/22/25 18:51 Respiratory Rate 12 07/22/25 18:51 Blood Pressure 84/56 L 07/22/25 18:51 Blood Pressure Mean 65 L 07/22/25 18:51 Blood Pressure Position Sitting 07/22/25 18:51 Pulse Oximetry 98 07/22/25 18:51 Oxygen Delivery Method Room Air 07/22/25 18:51 Vital Signs Temperature 97.3 F L 07/22/25 18:51 Pulse Rate 92 07/22/25 18:51 Respiratory Rate 12 07/22/25 18:51 Blood Pressure 84/56 L 07/22/25 18:51 Pulse Oximetry 98 07/22/25 18:51 Oxygen Delivery Method Room Air 07/22/25 18:51 Temperature 97.3 F L 07/22/25 18:51 Pulse Rate 78 07/22/25 20:45 Respiratory Rate 12 07/22/25 20:32 Blood Pressure 119/72 07/22/25 20:32 Pulse Oximetry 89 07/22/25 20:45 Oxygen Delivery Method Room Air 07/22/25 20:32 Medications Administered Medications: Discontinued Medications Generic Name Dose Route Start Last Admin Trade Name Freq PRN Reason Stop Dose Admin Hydromorphone HCl 0.5 mg 07/22/25 19:38 07/22/25 19:54 Hydromorphone 0.5 Mg/0.5 Ml Inj IVP 07/22/25 19:39 0.5 mg ONCE ONE Administration Sodium Chloride 1,000 mls @ 1,000 mls/hr 07/22/25 19:45 07/22/25 21:03 0.9 % Sodium Chloride 1000 Ml IV 07/22/25 20:44 Infused .Q1H RALPH Infusion Ondansetron HCl 4 mg 07/22/25 19:38 07/22/25 19:55 Ondansetron 2 Mg/Ml Inj IVP 07/22/25 19:39 4 mg ONCE ONE Administration Medical Decision Making MDM Narrative Medical decision making narrative: This patient comes in reporting left upper quadrant abdominal pain and some lower chest pain in that same area. She has been taking G LP 1 medication and had it switched to a different 1 recently. She wonders if she has pancreatitis. Her lipase enzyme does return elevated at 550. The patient did receive a L of normal saline intravenously along with Dilaudid 0.5 mg and Zofran 4 mg. This brought some relief to her pain but it started to recur after the effect dissipated. The patient is okay to return home. It does seem that her elevated lipase is related to the medication. There are no other findings on lab results that are remarkable. I did discuss the role of imaging and in a process of shared decision making the patient declined any CT imaging today. She is not showing findings of acute abdomen on exam. The patient received an extra dose of Dilaudid 0.25 mg and Toradol 30 mg intravenously. [facility] prescriptions are also provided for [place], Toradol, and Zofran. Lab Data Labs: Lab Results 07/22/25 07/22/25 Range/Units 19:00 19:17 WBC 8.19 (4.50-11.00) K/uL RBC 5.13 (4.00-5.20) m/uL Hgb 16.0 (12.0-16.0) gm/dL Hct 46.1 (33.0-51.0) % MCV 90 (80-100) fL MCH 31 (26-34) pg MCHC 35 (32-36) gm/dL RDW Coeff of Corazon 12.6 (11.5-15.5) % Plt Count 231 (140-440) K/uL Neut % (Auto) 72.4 H (42.0-72.0) % Lymph % (Auto) 20.4 (20-44) % [place] % (Auto) 6.3 (0.0-11.0) % Eos % (Auto) 0.5 (0.0-7.0) % Baso % (Auto) 0.2 (0.0-3.0) % Neut # (Auto) 5.90 (1.7-7.0) K/uL Lymph # (Auto) 1.67 (0.90-2.90) K/uL [place] # (Auto) 0.50 (0.00-0.90) K/UL Eos # (Auto) 0.04 (0.00-0.50) K/uL Baso # (Auto) 0.02 (0.00-0.30) K/uL Abs Immat Gran (auto) 0.02 (0.00-0.30) K/uL Imm/Tot Granulo (auto) 0.2 % Sodium 134 L (135-149) mmol/L Potassium 3.4 L (3.6-5.1) mmol/L Chloride 97 (96-114) mmol/L Carbon Dioxide 24 (20-32) mmol/L Anion Gap 13 (7-15) mEq/L BUN 21 (7-30) mg/dL Creatinine 1.2 (0.5-1.5) mg/dL Estimated Creat Clear 50.29 Estimated GFR 52 ml/min Glucose 98 (60-115) mg/dL Lactate 1.7 (0.5-1.9) mmol/L Calcium 9.8 (8.4-10.6) mg/dL Total Bilirubin 0.7 (0.1-1.5) mg/dL Direct Bilirubin 0.3 (0.0-0.5) mg/dL AST 33 (12-35) U/L ALT 22 (4-35) U/L Alkaline Phosphatase 86 (40-150) U/L POC Troponin I High Sensi < 2.9 L (2.9-13.0) pg/mL Total Protein 7.5 (6.0-8.3) g/dL Albumin 4.6 (3.3-5.0) g/dL Amylase 126 H (18-89) U/L Lipase 553 H (23-300) U/L ECG Data Attestation: I personally reviewed and interpreted this ECG as follows: Interpretation: Normal sinus rhythm. Rate is 80 beats per minute. There are no ST or T-wave abnormalities. Discharge Plan Discharge Clinical Impression: Abdominal pain, Vomiting Prescriptions: No Action clindamycin phosphate 1 % lotion 1 applic topical QDAY cholecalciferol (vitamin D3) 25 mcg (1,000 unit) capsule 25 mcg PO DAILY metoclopramide HCl [Reglan] 5 mg tablet 5 mg PO Q8H Qty: 7 0RF epinephrine 0.3 mg/0.3 mL auto-injector 0.3 ml IM ONCE Qty: 2 2RF Rx Instructions: as a single dose; may repeat once furosemide 40 mg tablet 40 mg PO DAILY Qty: 90 1RF levothyroxine 50 mcg tablet 50 mcg PO DAILY Qty: 90 3RF citalopram 40 mg tablet 40 mg PO HS Qty: 90 1RF Trulance 3 mg tablet 3 mg PO QDAY Qty: 90 1RF clonazepam [Klonopin] 1 mg tablet 1 mg PO QDAY PRN (Reason: anxiety) Qty: 30 0RF trazodone 100 mg tablet See Rx Instructions .ROUTE .COMPLEX Qty: 135 1RF Dose Instruction: Take 1.5 Tablets (150 mg) by mouth at bedtime. Rx Instructions: Take 1.5 Tablets (150 mg) by mouth at bedtime. bupropion HCl 300 mg tablet extended release 24 hr 300 mg PO DAILY Qty: 90 1RF pregabalin 300 mg capsule 300 mg PO BID Qty: 180 1RF alendronate [Fosamax] 70 mg tablet 70 mg PO QWEEK Qty: 13 3RF dextroamphetamine-amphetamine [Adderall XR] 30 mg capsule,extended release 24hr 30 mg PO QAM Qty: 30 0RF dextroamphetamine-amphetamine [Adderall XR] 30 mg capsule,extended release 24hr 30 mg PO QAM Qty: 30 0RF Follow Up/Referrals: Jack Zavala MD [Primary Care Provider, Family Practice]
[2025-07-22 19:42] LABS: Albumin* 4.6 g/dL (3.3-5.0); Chloride* 97 mmol/L (96-114); Sodium* 134 mmol/L (135-149)
[2025-07-22 19:43] LABS: Potassium* 3.4 mmol/L (3.6-5.1)
[2025-07-22 19:45] LABS: Anion Gap 13 mEq/L (7-15); Blood Urea Nitrogen* 21 mg/dL (7-30); Calcium* 9.8 mg/dL (8.4-10.6); Carbon Dioxide* 24 mmol/L (20-32); Creatinine* 1.2 mg/dL (0.5-1.5); Est. Creatinine Clearance* 50.29; Estimated Glomerular Filt Rate 52 ml/min; Glucose* 98 mg/dL (60-115); Total Protein* 7.5 g/dL (6.0-8.3)
[2025-07-22 19:46] LABS: Alanine Aminotransferase* 22 U/L (4-35); Alkaline Phosphatase* 86 U/L (40-150); Aspartate Amino Transferase* 33 U/L (12-35); Bilirubin Direct* 0.3 mg/dL (0.0-0.5); Bilirubin Total* 0.7 mg/dL (0.1-1.5)
[2025-07-22] MEDS: ONDANSETRON 2 MG/ML inj 4 MG IVP (19:55)
== END 2025-07-22 22:27 | disposition home or self-care (01) ==
PROVIDERS: Emergency Provider Emergency Medicine Emergency Medical Services; PCP Family Medicine
DX: R10.12 Left upper quadrant pain (principal); R11.10 Vomiting, unspecified; R07.89 Other chest pain
CPT/HCPCS: 36415; 80048; 80076; 82150; 83605; 83690; 84484; 85025; 93005; 94761; 96374; 96375; 96376; 99284; J1171; J1885; J2405; J7030